=== PATIENT | male | born 1940 | race Caucasian/White ===

== ENCOUNTER 2023-11-16 14:44 | Outpatient (OUT) | payer MEDICARE, BC, SELFPAY ==
--- NOTE | 2023-11-16 16:21 | P.CN_ITS ---
Consult Note: HPI Data of Consult Patient: new to practice Consult date: 11/16/23 Requesting Physician: Mabel De La Garza MD Primary Care Provider: Roberta Patino NP Consult Narrative Reason for consult: low back, bilateral lower extremity pain Narrative: 83yom who presents for evaluation. longstanding low back pain, lower extremity paresthesias and weakness. has had a variety of interventional modalities at outside pain clinic, without lasting benefit. no recent imaging available for review. came across literature regarding vertiflex, is interested in this. continues in a series of provider directed home exercises >6 weeks, without significant benefit. uses otc meds as needed. denies adverse med side effects. cc:: CC: Mabel De La Garza MD Review of Systems ROS Status of ROS 10 or more systems reviewed and unremark able except as noted in history and below Exam Narrative Exam Narrative: Psych-alert and oriented x 3. Attentive and appropriate, constitutionally normal, displays normal mood and affect per situation. There are no obvious deficits in memory, reasoning, or intellect.? Skin-no obvious rashes, bruising, erythema noted to the patient's area of pain.? Extremities- extremities are warm with minimal edema and palpable pulses. Lumbar-tenderness to palpation noted in the lumbar spine and paraspinal musculature. Pain is elicited with flexion, extension, and lateral rotation of the lumbar spine. Range of motion is diminished with these motions. Facet loading maneuvers are positive.? Strength-noted to be unremarkable with the exception of decreased strength rated at 4 out of 5 in bilateral quadriceps femoris, anterior tibialis. Sensory-no notable sensory deficits in the bilateral lower extremities to touch or pinprick in all dermatomal distributions with the exception to decreased sensation to the bilateral L4, 5 dermatomal distribution Coordination remains intact.? Gait remains non-antalgic. Assessment and Plan Assessment and Plan (1) Lumbar stenosis with neurogenic claudication: (2) Lumbar postlaminectomy syndrome: Plan 83yom who presents for evaluation. failed conservative measures, as noted. imaging is not recent. could potentially be candidate for vertiflex, given symptoms and failure to respond to conservative measures. will have him undergo lumbar mri without contrast, as well as xr lumbar spine with flexion and extension and DEXA scan. he is in agreement. may be better candidate for spinal cord stimulator, but will discuss at following visit. meds reviewed, no changes. follow up after imaging.
== END 2023-11-16 14:45 | disposition home or self-care (01) ==
LOC: PM 14:45
PROVIDERS: PCP Nurse Practitioner; Visit Provider Anesthesiology
DX: M48.062 Spinal stenosis, lumbar region with neurogenic claudication (principal); M96.1 Postlaminectomy syndrome, not elsewhere classified
CPT/HCPCS: G0463

== ENCOUNTER 2023-12-01 12:37 | Outpatient (OUT) | payer MEDICARE, BC, SELFPAY ==
--- NOTE | 2023-12-01 | XR_ITS ---
The [address] [address] Patient Name: MARCIANO MCMILLAN MRN: [id number] date: 1940 Sex: M Assigned Patient Location: MRI Current Patient Location: MRI Accession/Order Number: [id number] Exam Date: 12/01/2023 13:48 Report Date: 12/01/2023 16:31 At the request of: THIAGO PATTERSON Procedure: XR DEXA axial skeleton EXAMINATION: XR DEXA axial skeleton HISTORY: LUMBAR SPINAL STENOSIS COMPARISON: No relevant comparison available. TECHNIQUE: Dual-energy X-ray absorptiometry (DXA) was performed. FINDINGS: SPINE ANALYSIS: Average bone mineral density is 1.694 g/cm2. T-score (standard deviation relative to young adult mean): 4.0 . HIP ANALYSIS: Lowest bone mineral density is within the right femoral neck, 0.880 g/cm2. T-score (standard deviation relative to young adult mean): -1.5 . XR/XR DEXA axial skeleton IMPRESSION: World Health Organization Classification: Osteopenia - Moderate Fracture Risk FRAX: Cannot calculate Pharmacologic treatment recommendations * No uniform recommendation applies to all patients. Management plans must be individualized. * Consider initiating pharmacologic treatment in postmenopausal women and men >= 50 years of age who have the following: Primary fracture prevention: * T-score <= - 2.5 at the femoral neck, total hip, lumbar spine, 33% radius (some uncertainty with existing data) by DXA. * Low bone mass (osteopenia: T-score between - 1.0 and - 2.5) at the femoral neck or total hip by DXA with a 10-year hip fracture risk >= 3% or a 10-year major osteoporosis-related fracture risk >= 20% (i.e., clinical vertebral, hip, forearm, or proximal humerus) based on the [place]-adapted FRAXregistered model. Secondary fracture prevention: * Fracture of the hip or vertebra regardless of BMD [4, 5]. * Fracture of proximal humerus, pelvis, or distal forearm in persons with low bone mass (osteopenia: T-score between - 1.0 and - 2.5). The decision to treat should be individualized in persons with a fracture of the proximal humerus, pelvis, or distal forearm who do not have osteopenia or low BMD [12, 13]. Dat MS, Pelon SL, Andree KL, Flaquito EM, Gavino KG, AJ, Katrin ES. The clinician's guide to prevention and treatment of osteoporosis. Osteoporos Int. 2021;33(10):5708-4688. doi: 10.1007/p74732-830-60858-n. Epub 2021Jul 04. Erratum in: Osteoporos Int. 2021Oct 03;: PMID: [id number]; PMCID: [id number]. Electronically authenticated by: FARIHA RICHARDS Date: 12/01/2023 16:31
--- NOTE | 2023-12-01 | MR_ITS ---
[address] [address] Patient Name: MARCIANO MCMILLAN MRN: [id number] date: 1940 Sex: M Assigned Patient Location: MRI Current Patient Location: MRI Accession/Order Number: [id number] Exam Date: 12/01/2023 13:12 Report Date: 12/02/2023 17:06 At the request of: THIAGO PATTERSON Procedure: MR lumbar spine wo con EXAM: MR lumbar spine wo con HISTORY: LUMBAR SPINAL STENOSIS COMPARISON: 12/01/2023 TECHNIQUE: MRI images obtained with multiple sequences. MRI of the lumbar spine without contrast. Sequences obtained by standard department protocol. FINDINGS: Levoscoliotic curvature of the lumbar spine centered at L3. T10-T11: Moderate disc degeneration. Intervertebral disc height loss. Broad-based posterior disc bulge. Mild to moderate spinal canal narrowing. Moderate neural foraminal narrowing bilaterally. Mild facet joint arthropathy. T11-T12: Mild disc degeneration. Broad-based posterior disc bulge. No spinal canal stenosis. Bilateral neural foramina are patent. T12-L1: Intervertebral disc height is preserved. No spinal canal stenosis. No neural foraminal stenosis. Mild facet joint arthropathy. L1-L2: Mild disc degeneration. Mild broad-based posterior disc bulge. No spinal canal stenosis. Left neural foramen is open. Right neural foramen is open. Mild facet joint arthropathy. L2-L3: Moderate disc degeneration. Broad-based posterior disc bulge. Left neural foramen is open. Right moderate neural foraminal narrowing. Mild facet joint arthropathy. Right lateral recess narrowing may irritate the traversing right L3 nerve root. Mild degenerative endplate edema. L3-L4: Moderate disc degeneration. Intervertebral disc height loss. Broad-based posterior disc bulge. Moderate spinal canal stenosis. Lateral recess narrowing in position to irritate the traversing bilateral L4 nerve roots. Mild to moderate facet joint arthropathy. Moderate right neural foraminal narrowing. Moderate left neural foraminal narrowing. Mild degenerative endplate edema. L4-L5: Intervertebral disc degeneration. Central posterior disc protrusion. Severe spinal canal stenosis. Severe left neural foraminal narrowing. Right moderate neural foraminal narrowing. L5-S1: Moderate disc degeneration. Central posterior disc protrusion. No spinal canal stenosis. Moderate to severe left neural foraminal narrowing. Right mild neural foraminal narrowing. Mild facet joint arthropathy. Mild degeneration of the sacroiliac joints. MR/MR lumbar spine wo con IMPRESSION: 1. Severe spinal canal stenosis at L4-L5. 2. Severe neural foraminal narrowing at left L4-L5. Moderate to severe left L5-S1 neural foraminal narrowing. 3. Moderate spinal canal stenosis at L3-L4. 4. Other findings as described. Electronically authenticated by: LENO CLARK Date: 12/02/2023 17:06
--- NOTE | 2023-12-01 | XR_ITS ---
The [place] [id number] Patient Name: MARCIANO MCMILLAN MRN: [id number] date: 1940 Sex: M Assigned Patient Location: MRI Current Patient Location: MRI Accession/Order Number: [id number] Exam Date: 12/01/2023 13:58 Report Date: 12/03/2023 06:04 At the request of: THIAGO PATTERSON Procedure: XR lumbar spine 6V w bending EXAMINATION: XR lumbar spine 6V w bending HISTORY: LUMBAR SPINAL STENOSIS COMPARISON: No relevant comparison available. FINDINGS: BONES: Marked left convex curvature of lumbar spine. Grade one-2 left lateral listhesis of L4 on 5. No fracture, anterior/posterior spondylolisthesis, or change in alignment during flexion and extension. Moderate-marked degenerative facet arthropathy L3-L4 through L5-S1. DISC SPACES: Marked narrowing L2-L3 through L5-S1 along the lesser curvature margin. PARASPINOUS: Moderate atherosclerotic disease of aorta without visible aneurysm. OTHER: Negative. XR/XR lumbar spine 6V w bending IMPRESSION: 1. Marked levoscoliosis. 2. Multilevel marked degenerative disc disease and facet arthropathy. Electronically authenticated by: FARIHA RICHARDS Date: 12/03/2023 06:04
--- OUTSIDE RECORDS SUMMARY | 2023-12-01 13:03 | XMS_ITS | CCD ---
Author Organization [facility] Care Team Providers Care Bartender Manager Name Role Phone Jared Petty Primary Care Provider Willian Nuñez Attending Provider [phone] Willian Nuñez Unavailable Lynn Garcia Unavailable Cristofer Grey Unavailable LINDA Patino Primary Care Provider MD Lynn Garcia Attending Provider MD Willian Nuñez Attending Provider [phone] LINDA Patino Primary Care Provider MD Willian Nuñez Attending Provider [phone] Roberta John Primary Care Provi chong LINDA Patino Primary Care Provider MD Willian Nuñez Attending Provider MD Angel Carbajal Attending Provider [phone] Angel Carbajal Admitting Unavailable Angel Carbajal Attending Unavailable Roberta Patino Primary Care Unavailable Angel Carbajal Admitting Unavailable Angel Carbajal Attending Unavailable Roberta Patino Primary Care Unavailable Willian Nuñez Admitting Unavailable Willian Nuñez Attending Unavailable Roberta Patino Primary Care Unavailable BAKFERN AZIZ Referring Unavailable ROBERTA PATINO Primary Care Unavailable LINDA Patino Primary Care Provider LINDA Patino Primary Care Provider MD Angel Carbajal Attending Provider [phone] ROBERTA PATINO Attending Unavailable ROBERTA PATINO Referring Unavailable ROBERTA PATINO A Primary Care Unavailable ROBERTA PATINO A Attending Unavailable ROBERTA PATINO A Referring Unavailable ROBERTA PATINO A Primary Care Unavailable MAGO ANGEL Attending Unavailable ROBERTA PATINO A Referring Unavailable ROBERTA PATINO A Primary Care Unavailable ROBERTA PATINO Attending Unavailable ROBERTA PATINO Referring Unavailable ROBERTA PATINO A Primary Care Unavailable Unavailable Unavailable Unavailable Allergies Allergy Classification Reported Allergen(s) Allergy Type Date of Onset Reaction(s) Facility (20 sources) Aspirin; Translations: [aspirin] Drug Allergy [address] [facility] (14 sources) NSAIDS (Non-Steroidal Anti-Inflamma Propensity to adverse reactions [address] [facility] (20 sources) Anti-Inflammato ry Enzyme Drug allergy 4 Unknown, Unknown Reaction [facility] (20 sources) Naproxen; Translations: [NAPROXEN] Drug Allergy 9 Other (See Comments) [facility] Other Medications Current Medications Medication Drug Class(es) Dates Sig (Normalized) Sig (Original) amLODIPine 5 mg oral tablet (20 sources) Dihydropyridine Calcium Channel Madeline Start: 08-19-2023 take 5 mg by mouth once daily Amlodipine Active 5 MG PO Daily August 19, 2023 12:00am Start: 05-29-2023 take 1 tablet by allyson th once daily amLODIPine (NORVASC) 5 mg tablet Indications: Essential hypertension, benign take 1 tablet by mouth once daily MAY TAKE ADDITIONAL TABLET IF BP GREATER THAN 150 90 tablet 1 05/29/2023 Active Start: 11-30-2022 End: 05-29-2023 take 1 tablet by mouth once daily amLODIPine (NORVASC) 5 mg tablet Indications: Essential hypertension, benign take 1 tablet by mouth once daily MAY TAKE ADDITIONAL TABLET IF BP GREATER THAN 150 90 tablet 1 11/30/2022 05/29/2023 Discontinued (Reorder) Start: 06-17-2021 End: 08-19-2023 take 5 mg by mouth once daily Amlodipine Discontinued 5 MG PO Daily June 17, 2021 12:48pm August 19, 2023 2:10pm Start: 04-03-2020 End: 06-17-2021 take 10 mg by mouth once daily Amlodipine Discontinued 10 MG PO Daily 30 30 April 03, 2020 1:00am June 17, 2021 12:49pm ascorbic acid 500 mg oral tablet (20 sources) Vitamin C Start: 08-19-2023 take 1 g by mouth once daily Ascorbic Acid (Vitamin C) (Vitamin C) 500 mg tablet Active 1 GM PO Daily August 19, 2023 2:11pm Start: 04-03-2020 End: 08-19-2023 take 1 g by mouth twice daily Ascorbic Acid (Vitamin C ) (Vitamin C) 500 mg tablet Discontinued 1 GM PO Twice daily June 17, 2021 12:48pm August 19, 2023 2:14pm Start: 03-21-2020 End: 03-21-2020 take 4 tablets by mouth twice daily Ascorbic Acid (Vitamin C) (Vitamin C) 500 mg Tablet Discontinued 2000 MG PO Twice daily 0 March 21, 2020 1:00am March 21, 2020 5:29pm Start: 03-12-2020 End: 04-03-2020 take 2 tablets by mouth twice daily Ascorbic Acid (Vitamin C) (Vitamin C) 1,000 mg Tablet Discontinued 2000 MG PO Twice daily March 12, 2020 1:00am April 03, 2020 9:58am take 1 tablet by allyson once daily Ascorbic Acid 500 MG 1 tablet Orally Once a day Active cyclobenzaprine hydrochloride 5 mg oral tablet (20 sources) Muscle Relaxant Start: 08-19-2023 take 5 mg by mouth once Cyclobenzaprine Active 5 MG PO Once August 19, 2023 2:11pm Start: 07-03-2021 End: 08-19-2023 take 5 mg by mouth three times daily Cyclobenzaprine Discontinued 5 MG PO Three times daily 40 July 03, 2021 12:00am August 19, 2023 2:14pm Start: 03-21-2020 End: 04-03-2020 take 10 mg by mouth every eight hours Cyclobenzaprine Discontinued 10 MG PO Every 8 hours 0 March 21, 2020 1:00am April 03, 2020 9:58am diclofenac sodium 0.01 mg/mg topical gel (20 sources) Nonsteroidal Anti-inflammatory Drug Start: 06-17-2021 Diclofenac Sodium Active 1 EACH TOPICAL As Directed June 17, 2021 12:00am Start: 05-29-2018 End: 04-03-2020 Diclofenac Sodium (Voltaren Arthritis Pain) 1 % gel Discontinued 2 GM TOPICAL Three times daily March 21, 2020 1:00am April 03, 2020 9:58am fluticasone propionate 0.05 mg/actuat metered dose nasal spray (14 sources) Corticosteroid Start: 08-19-2023 Fluticasone Pr opionate Active INTRANASAL August 19, 2023 12:00am Start: 04-06-2023 take 1 spray(s) nasa l route once daily in the morning fluticasone propionate (FLONASE) 50 mcg/actuation nasal spray instill 1 spray into each nostril every morning 16 g 3 04/06/2023 Active Start: 03-31-2022 End: 04-06-2023 take 1 spray(s) nasal route in the morning fluticasone propionate (FLONASE) 50 mcg/actuation nasal spray Administer 1 spray into each nostril in the morning. 18.2 mL 4 03/31/2022 04/06/2023 Discontinued take 1 spray(s) nasa l route once daily Fluticasone Propionate 50 MCG/ACT 1 spray in each nostril Nasally Once a day Active hydroCHLOROthiazide 25 mg / triamterene 37.5 mg oral capsule (20 sources) Potassium-sparing Diuretic, Thiazide Diuretic Start: 09-27-2022 take 1 capsule by mouth every other day for edema triamterene-hydroCHLOROthiazide (DYAZIDE) 37.5-25 mg per capsule Indications: Essential hypertension, benign take 1 capsule by mouth every other day if needed for edema 90 capsule 1 09/27/2022 Active Start: 06-17-2021 take 1 tablet by allyson th every other day Triamterene-Hydrochlorothiazid Active 1 TAB PO every other day June 17, 2021 12:00am Start: 03-12-2020 End: 04-03-2020 take 1 tablet by mouth once daily in the morning Triamterene-Hydrochlorothiazid Discontin ued 1 TAB PO Every morning March 21, 2020 5:29pm April 03, 2020 9:58am losartan potassium 50 mg oral tablet (20 sources) Angiotensin 2 Receptor Madeline Start: 08-19-2023 take 75 mg by mouth once daily Losartan Active 75 MG PO Daily August 19, 2023 12:00am Start: 01-25-2023 losartan (COZA AR) 50 mg tablet take 1 AND 1/2 tablets by mouth once daily 135 tablet 1 01/25/2023 Active Start: 07-03-2021 End: 08-19-2023 take 100 mg by mouth once daily Losartan Discontinued 100 MG PO Daily July 03, 2021 12:00am August 19, 2023 2:12pm Start: 06-17-2021 End: 07-03-2021 take 75 mg by mouth once daily Losartan Discontinued 7 5 MG PO Daily June 17, 2021 12:48pm July 03, 2021 1:28pm Start: 03-12-2020 End: 06-17-2021 take 50 mg by mouth once daily Losartan Discontinued 5 0 MG PO Daily April 03, 2020 1:00am June 17, 2021 12:49pm nystatin [id number] unt/ml topical cream (20 sources) Polyene Antifungal Start: 10-31-2022 End: 03-12-2023 nystatin (MYCOSTATIN) cream Indications: Dermatitis apply 1 APPLICATION topically to affected area if needed for DERMATITIS 30 g 2 03/12/2023 Active Start: 06-17-2021 Nystatin Activ e 1 APPLIC TOPICAL As Directed June 17, 2021 12:00am Nystatin [id number] UNIT/GM 1 application Externally Twice a day Active Nystatin [id number] UNIT/GM 1 application Externally Twice a day Active oxyCODONE hydrochloride 5 mg oral tablet (20 sources) Opioid Agonist Start: 08-07-2021 take 1-2 tablets by mouth three times daily as needed oxyCODONE HCl 5 MG 1-2 tablet as needed Orally three times a day for 7 days Aug, Active Start: 07-03-2021 End: 06-25-2023 take 5-10 mg by mouth every six hours Oxycodone Discontinued 5 - 10 MG PO Q6H 40 8 July 03, 2021 June 25, 2023 10:18am Start: 04-03-2020 End: 06-17-2021 take 2.5 mg by mouth three times daily Oxycodone Discontinued 2.5 MG PO Three times daily 25 09April 03, 2020 June 17, 2021 12:48pm Start: 03-21-2020 End: 03-21-2020 take 5 mg by mouth every six hours Oxycodone Discontinued 5 MG PO Every 6 hours 0 March 21, 2020 March 21, 2020 5:30pm Start: 03-21-2020 End: 03-21-2020 take 10 mg by mouth every six hours Oxycodone Discontinued 10 MG PO Every 6 hours 0 March 21, 2020 March 21, 2020 5:30pm permethrin 50 mg/ml topical cream (3 sources) Pyrethroid Permethrin 5 % 1 application Externally Two times a Week Active polyethylene glycol 400 4 mg/ml / propylene glycol 3 mg/ml ophthalmic solution (20 sources) Start: 03-12-2020 Peg 400-Propylene Glycol (Systane (Propylene Glycol)) 0.4-0.3 % Drops Active 2 DROPS EYE-BOTH As Directed March 12, 2020 1:00am takes morning/evening and more often if needed. peg 400-propylen e glycol (SYSTANE ULTRA) 0.4-0.3 % drops Instill 1 drop into each eye as needed 0 Active take 1 drop(s) into the eye(s) once daily as needed Systane Ultra 0.4-0.3 % as directed Ophthalmic 1 DROP INTO EACH EYE ONCE A DAY NEEDED Active Propylene glycol (7 sources) take 2 drop(s) into the eye(s) twice daily Propylene Glycol - as directed Ophthalmic 2 DROPS TWO TIMES A DAY IN BOTH EYES Active tamsulosin hydrochloride 0.4 mg oral capsule (20 sources) alpha-Adrenergic Madeline Start: take 2 capsules by mouth once daily tamsulosin (FLOMAX) 0.4 mg capsule Indications: Enlarged prostate with urinary obstruction take 2 capsules by mouth nightly 180 capsule 1 01/04/2023 Active Start: 07-01-2021 take 0.8 mg by mouth once daily at bedtime Tamsulosin Active 0.8 MG PO Daily at bedtime July 01, 2021 12:00am Start: 03-12-2020 End: 06-17-2021 take 0.8 mg by mouth once daily at bedtime Tamsulosin Discontinued 0.8 MG PO Daily at bedtime 60 30 April 03, 2020 1:00am June 17, 2021 12:48pm take 1 capsule by mo uth every twenty-four hours Tamsulosin HCl 0.4 MG 1 capsule Orally Once a day Not-Taking tiZANidine 2 mg oral tablet (8 sources) Central alpha-2 Adrenergic Agonist take 1 tablet by mouth every eight hours tiZANidine HCl 2 MG 1 tablet as needed Orally Three times a day Active triamcinolone acetonide 0.001 mg/mg topical ointment (14 sources) Corticosteroid Start: 08-19-19 Triamcinolone Acetonide Active APPLIC TOPICAL August 19, 2023 12:00am Start: 01-25-2023 triamcinolone (KENALOG) 0.1 % ointment Indications: Dermatitis APPLY 1 APPLICATION TOPICALLY TO AFFECTED AREA EVERY MORNING THEN APPLY 1 APPLICATION BEFORE BEDTIME 80 g 1 01/25/2023 Active Triamcinolone Ac etonide 0.1 % 1 application Externally Twice a day Active vitamin b12 1 mg oral tablet (20 sources) Vitamin B12 Start: 04-03-2020 End: 06-17-2021 take 1000 ug by mouth once daily in the morning Cyanocobalamin (Vitamin B-12) Active 1000 MCG PO Every morning June 17, 2021 12:48pm take 1 tablet by allyson once daily as needed Cyanocobalamin 1000 MCG 1 tablet Orally ONCE A DAY PRN Active take 1 tablet by mouth once jorge y Cyanocobalamin 1000 MCG 1 tablet Orally Once a day Active Completed/Discontinued Medications Medication Drug Class(es) Dates Sig (Normalized) Sig (Original) acetaminophen 325 mg oral tablet (20 sources) Start: 04-03-2020 End: 06-17-2021 take 162.5 mg by mouth three times daily Acetaminophen Discontinued 162.5 MG PO Three times daily 0 April 03, 2020 1:00am June 17, 2021 12:46pm Start: 03-21-2020 End: 04-03-2020 take 650 mg by mouth every four hours Acetaminophen Discontinued 650 MG PO Q4H 0 March 21, 2020 1:00am April 03, 2020 9:58am acetaminophen 325 mg / oxyCODONE hydrochloride 7.5 mg oral tablet (20 sources) Opioid Agonist Start: 03-12-2020 End: 03-21-2020 Oxycodone-Acetaminophen (Percocet) 7.5-325 mg Tablet Discontinued 0.5 - 1 TAB PO As Directed March 12, 2020 1:00am March 21, 2020 2:16pm take 1 tablet by allyson th every six hours oxyCODONE-Acetaminophen 7.5-325 MG 1 tab let as needed Orally every 6 hrs Active aluminum hydroxide 40 mg/ml / magnesium hydroxide 40 mg/ml / simethicone 4 mg/ml oral suspension (12 sources) Start: 03-21-2020 End: 04-03-2020 take 1 mL by mouth every four hours Alum-Mag Hydroxide-Simeth (Mag-Al Plus) 200-200-20 mg/5 mL Suspension Discontinued 30 ML PO Q4H 0 March 21, 2020 1:00am April 03, 2020 9:58am calcium carbonate 1250 mg oral tablet (20 sources) Start: 03-21-2020 End: 04-03-2020 Calcium Carbonate (Oyster Shell Calcium 500) 500 mg calcium (1,250 mg) tablet Discontinued 500 MG PO Every morning March 21, 2020 5:29pm April 03, 2020 9:58am Start: 03-12-2020 End: 03-21-2020 take 1 tablet by mouth once daily Calcium Carbonate (Calcium 600) 600 mg calcium (1,500 mg) Tablet Discontinued 600 MG PO Daily March 12, 2020 1:00am March 21, 2020 5:29pm cephalexin 500 mg oral capsule (12 sources) Cephalosporin Antibacterial Start: 07-03-2021 End: 06-25-2023 take 500 mg by mouth three times daily Cephalexin Discontinued 500 MG PO Three times daily July 03, 2021 12:00am June 25, 2023 10:18am cholecalciferol 0.025 mg oral tablet (20 sources) Vitamin D Start: 04-03-2020 End: 06-17-2021 take 25 ug by mouth once daily in the morning Cholecalciferol (Vitamin D3) Discontinued 25 MCG PO Every morning 30 April 03, 2020 1:00am June 17, 2021 12:47pm Start: 03-21-2020 End: 04-03-2020 take 50 ug by mouth once daily in the morning Cholecalciferol (Vitamin D3) Discontinued 50 MCG PO Every morning March 21, 2020 5:29pm April 03, 2020 9:58am Start: 03-12-2020 End: 03-21-2020 take 1 capsule by mouth once daily Cholecalciferol (Vitamin D3) (Vitamin D3) 50 mcg (2,000 unit) Capsule Discontinued 50 MCG PO Daily March 12, 2020 1:00am March 21, 2020 5:29pm docusate sodium 100 mg oral capsule (12 sources) Start: 04-03-2020 End: 07-21-2023 take 1 capsule by mouth twice daily Docusate Sodium (Dok) 100 mg Capsule Discontinued 100 MG PO Twice daily 60 April 03, 2020 1:00am July 21, 2023 9:32am docusate sodium 50 mg / sennosides, fpc 8.6 mg oral tablet (12 sources) Start: 03-21-2020 End: 04-03-2020 take 2 tablets by mouth twice daily Sennosides-Docusate Sodium Discontinued 2 TAB PO Twice daily 0 March 21, 2020 1:00am April 03, 2020 9:58am famotidine 20 mg oral tablet (20 sources) Histamine-2 Receptor Antagonist Start: 03-12-2020 End: 04-06-2023 take 20 mg by mouth twice daily Famotidine Discontinued 20 MG PO Twice daily 60 April 03, 2020 1:00am June 17, 2021 12:49pm Start: 03-12-2020 End: 03-21-2020 take 20 mg by mouth once daily at bedtime Famotidine Discontinued 20 MG PO Daily at bedtime March 12, 2020 1:00am March 21, 2020 2:16pm finasteride 5 mg oral tablet (20 sources) 5-alpha Reductase Inhibitor Start: 03-21-2020 End: 04-03-2020 take 5 mg by mouth once daily in the morning Finasteride Discontinued 5 MG PO Every morning March 21, 2020 5:29pm April 03, 2020 9:58am Magnesium Hydroxide (12 sources) Start: 03-21-2020 End: 04-03-2020 take 1 mL by mouth at bedtime Magnesium Hydroxide (Milk Of Magnesia) 400 mg/5 mL Suspension Discontinued 30 ML PO Bedtime 0 March 21, 2020 12:00am April 03, 2020 8:58am Start: 03-21-2020 End: 04-03-2020 take 1 mL by mouth at bedtime Magnesium Hydroxide (Mil k Of Magnesia) 400 mg/5 mL Suspension Discontinued 30 ML PO Bedtime 0 March 21, 2020 1:00am April 03, 2020 9:58am Prednisone (20 sources) Start: 07-03-2021 End: 06-25-2023 Prednisone Discontinued 1 do se pk PO per package directions July 03, 2021 12:00am June 25, 2023 10:18am take 4 tabs for 3 days then take 3 tabs for 3 days then take 2 tabs for 3 days then take 1 tab for 3 days Start: 07-03-2021 Prednisone Act nuno 1 dose pk PO per package directions July 02, 2021 11:00pm take 4 tabs for 3 days then take 3 tabs for 3 days then take 2 tabs for 3 days then take 1 tab for 3 days Start: 07-03-2021 Prednisone Act nuno 1 dose pk PO per package directions July 03, 2021 12:00am take 4 tabs for 3 days then take 3 tabs for 3 days then take 2 tabs for 3 days then take 1 tab for 3 days Start: 04-25-2021 predniSONE 10 MG 3 tablets a day for 3 days, 2 tablets a day for 3 days, 1 tablets a day for 3 days Orally Once a day for 9 day(s) Apr, Active Start: 04-03-2020 End: 06-17-2021 take 20 mg by mouth once daily Prednisone Discontinued 20 MG PO Daily 07 10April 03, 2020 1:00am June 17, 2021 12:48pm temazepam 15 mg oral capsule (12 sources) Benzodiazepine Start: 04-03-2020 End: 06-17-2021 take 15 mg by mouth once daily at bedtime Temazepam Discontinued 15 MG PO Daily at bedtime April 03, 2020 1:00am June 17, 2021 12:48pm Vitamin D-3 25 MCG (1000 UT) (2 sources) take 1 capsule by mouth once daily Vitamin D-3 25 MCG (1000 UT) 1 capsule Orally Once a day Not-Taking Problems Active Problems Problem Classification Problem Date Documented Da te Episodic/Chronic Acute and unspecified renal failure (12 sources) Injury of kidney; Translations: [Acute kidney failure, unspecified] 03-25-2020 Episodic Administrative/social admission (12 sources) Other reduced mobility; Translations: [Impaired mobility and activities of daily living] 03-22-2020 Episodic Chronic kidney disease (20 sources) Chronic kidney disease stage 3A ; Translations: [Chronic kidney disease, stage 3a] Onset: 10-22-2016 03-25-2020 Chronic Chronic kidney disease (16 sources) Chronic kidney disease; Translations: [Chronic kidney disease, stage 3a] Onset: 10-22-2016 Resolved: 08-21-2021 Essential hypertension (20 sources) Hypertensive disorder; Translations: [Essential (primary) hypertension] Onset: 10-22-2016 07-01-2021 Chronic Fluid and electrolyte disorders (12 sources) Hyponatremia; Translations: [Hypo-osmolality and hyponatremia] 03-26-2020 Episodic Hyperplasia of prostate (19 sources) Benign prostatic hyperplasia; Translations: [Benign prostatic hyperplasia without lower urinary tract symptoms] Onset: 10-22-2016 Chronic Hypertension with complications and secondary hypertension (20 sources) Malignant hypertensive chronic kidney disease; Translations: [Hypertensive chronic kidney disease with stage 1 through stage 4 chronic kidney disease, or unspecified chronic kidney disease] Onset: 08-21-2021 Resolved: 08-21-2021 Chronic Immunizations and screening for infectious disease (1 source) Encounter for immunization; Translations: [Encounter for immunization] Onset: 10-07-2023 Episodic Nutritional deficiencies (20 sources) Decreased vitamin B12 level; Translations: [Deficiency of other specified B group vitamins] Onset: 08-17-2023 03-22-2020 Episodic Osteoarthritis (20 sources) 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; Translations: [Primary osteoarthritis, right shoulder] Chronic Other acquired deformities (16 sources) Lumbar spondylolisthesis; Translations: [Spondylolisthesis, lumbar region] Episodic Other acquired deformities (10 sources) Spondylolisthesis; Translations: [Spondylolisthesis, cervical region] 06-25-2023 Episodic Other acquired deformities (7 sources) Spondylolisthesis, cervical region; Translations: [Acquired spondylolisthesis] 06-25-2023 Episodic Other connective tissue disease (8 sources) Arthrodesis status; Translations: [Arthrodesis status] Onset: 07-30-2021 Resolved: 07-30-2021 Episodic Other connective tissue disease (10 sources) History of cervical spine fusion; Translations: [Arthrodesis status] 06-25-2023 Episodic Other endocrine disorders (8 sources) Osteitis fibrosa cystica; Translations: [Primary hyperparathyroidism] 08-18-2023 Chronic Other endocrine disorders (8 sources) Primary hyperparathyroidism; Translations: [Primary hyperparathyroidism] Onset: 08-17-2023 Chronic Other gastrointestinal disorders (12 sources) Constipation; Translations: [Constipation, unspecified] 03-25-2020 Episodic Other inflammatory condition of skin (5 sources) Rosacea; Translations: [Rosacea, unspecified] Onset: 10-22-2016 10-22-2016 Chronic Other nervous system disorders (20 sources) Cervical myelopathy; Translations: [Disease of spinal cord, unspecified] 03-22-2020 Chronic Other nervous system disorders (20 sources) Chronic pain; Translations: [Other chronic pain] 07-16-2023 Chronic Other nervous system disorders (3 sources) Disease of spinal cord, unspecified; Translations: [Cervical myelopathy G95.9] Onset: 12-13-2020 Resolved: 04-25-2021 Chronic Other nervous system disorders (20 sources) Ulnar neuropathy; Translations: [Lesion of ulnar nerve, right upper limb] Chronic Other nervous system disorders (1 source) Lesion of ulnar nerve, left upper limb Onset: 03-14-2021 Resolved: 03-14-2021 Chronic Other nervous system disorders (1 source) Lesion of ulnar nerve, right upper limb Onset: 03-14-2021 Resolved: 03-14-2021 Chronic Other nervous system disorders (16 sources) Other chronic pain; Translations: [Other chronic pain] 07-16-2023 Chronic Other nervous system disorders (12 sources) Postoperative pain ; Translations: [Other acute postprocedural pain] 03-22-2020 Episodic Other nervous system disorders (12 sources) Abnormal gait; Translations: [Unspecified abnormalities of gait and mobility] 03-22-2020 Episodic Other non-traumatic joint disorders (12 sources) Disorder of joint of shoulder region; Translations: [Joint disorder, unspecified] 03-22-2020 Episodic Other nutritional; endocrine; and metabolic disorders (20 sources) Hypercalcemia; Translations: [Hypercalcemia] 08-18-2023 Chronic Other nutritional; endocrine; and metabolic disorders (10 sources) Hypercalcemia; Translations: [Hypercalcemia] Onset: 08-21-2021 Resolved: 08-21-2021 Chronic Other screening for suspected conditions (not mental disorders or infectious disease) (12 sources) Protein level - finding; Translations: [Other specified abnormal findings of blood chemistry] 03-22-2020 Episodic Pneumonia (except that caused by tuberculosis or sexually transmitted disease) (12 sources) Pneumonia; Translations: [Pneumonia, unspecified organism] 03-25-2020 Episodic Residual codes; unclassified (12 sources) Insomnia; Translations: [Insomnia, unspecified] 04-03-2020 Episodic Residual codes; unclassified (12 sources) Patient encounter status; Translations: [Encounter for prophylactic measures, unspecified] 03-22-2020 Episodic Residual codes; unclassified (12 sources) History of surgical procedure on cervical spine; Translations: [Other specified postprocedural states] 03-22-2020 Episodic Spondylosis; intervertebral disc disorders; other back problems (20 sources) Cervical spondylosis with myelopathy; Translations: [Other spondylosis with myelopathy, cervical region] Onset: 02-09-2019 Resolved: 10-29-2021 Chronic Unclassified (1 source) Annual Exam Onset: 10-07-2023 Past or Other Problems Problem Classification Problem Date Documented Da te Episodic/Chronic Allergic reactions (7 sources) Inflammatory dermatosis; Translations: [Dermatitis, unspecified] Onset: 10-25-2020 03-12-2023 Episodic Mood disorders (5 sources) Mood disorders Onset: 09-26-2022 09-26-2022 Other gastrointestinal disorders (5 sources) Slow transit constipation; Translations: [Slow transit constipation] Onset: 08-12-2021 08-12-2021 Episodic Other nervous system disorders (5 sources) Paresthesia of upper limb; Translations: [Anesthesia of skin] Onset: 05-06-2021 05-06-2021 Episodic Residual codes; unclassified (5 sources) H/O Spinal surgery; Translations: [Other specified postprocedural states] Onset: 08-12-2021 2 Episodic Spondylosis; intervertebral disc disorders; other back problems (20 sources) Chronic low back pain; Translations: [Lumbago with sciatica, right side] Onset: 05-31-2018 Resolved: 10-29-2021 Episodic Results Test Name Value Interpretation Reference Range Facility COMPLETE BLOOD COUNTon 08-16 Erythrocyte distribution width (RBC) [Ratio] 14.0 % Normal 11.5-15.0 [facility] Comment on above: Performed By: #### C BC, UPCR, CMP, 40633-3, 2777-1, 3084-1, 2731-8, 2132-9, 71774-3 #### [facility] ([id number]) [address] [place] [address] Hematocrit (Bld) [Volume fraction] 39.1 % Normal 39-49 [facility] [facility] Comment on above: Performed By: #### C BC, UPCR, CMP, 07737-8, 2777-1, 3084-1, 2731-8, 2132-9, 43629-0 #### [facility] ([id number]) [address] [address] [place] [address] Hemoglobin (Bld) [Mass/Vol] 13.6 g/dL Normal 13.0-17.0 [facility] Comment on above: Performed By: #### C BC, UPCR, CMP, 32975-6, 2777-1, 3084-1, 2731-8, 2132-9, 97677-2 #### [facility] ([id number]) [address], [address] [place] [address] MCH (RBC) [Entitic mass] 32.9 pg Normal 27-34 [facility] Comment on above: Performed By: #### C BC, UPCR, CMP, 38068-4, 2777-1, 3084-1, 2731-8, 2132-9, 35826-0 #### [facility] ([id number]) [address], [address] [place] [address] MCHC (RBC) [Mass/Vol] 34.9 g/dL Normal 32-36 [facility] Comment on above: Performed By: #### C BC, UPCR, CMP, 80413-9, 2777-1, 3084-1, 2731-8, 2132-9, 74054-6 #### [facility] ([id number]) [address], [address] [place] [address] MCV (RBC) [Entitic vol] 94 fL Normal 80-100 P [facility] Comment on above: Performed By: #### C BC, UPCR, CMP, 93066-7, 2777-1, 3084-1, 2731-8, 2131-9, 98623-5 #### [facility] ([id number]) [address], [address] [place] [address] Platelet mean volume (Bld) [Entitic vol] 8.3 fL Normal 7-12 [facility] Comment on above: Performed By: #### C BC, UPCR, CMP, 36005-8, 2777-1, 3084-1, 2731-8, 2131-9, 32551-1 #### [facility] ([id number]) [address], [facility] [address] [place] [address] Platelets (Bld) [#/Vol] 189 10*3/uL Normal 150-450 [facility] Comment on above: Performed By: #### C BC, UPCR, CMP, 77266-5, 2777-1, 3084-1, 2731-8, 2132-9, 46305-7 #### [facility] ([id number]) [address], [address] [place] [address] RBC COUNT 4.15 X10E12/L Normal 4.10-5.70 [facility] Comment on above: Performed By: #### C BC, UPCR, CMP, 60904-6, 2777-1, 3084-1, 2731-8, 2132-9, 23365-3 #### [facility] ([id number]) [address], [address] [place] [address] WBC (Bld) [#/Vol] 5.1 10*3/uL Normal 4.0-11.0 [facility] Comment on above: Performed By: #### C BC, UPCR, CMP, 18194-2, 2777-1, 3084-1, 2731-8, 2132-9, 36437-3 #### [facility] ([id number]) [address], [address] [place] [address] COMPREHENSIVE METABOLIC PANE Dima 08-17-2023 Albumin [Mass/Vol] 4.2 g/dL Normal 3.2-5.3 [facility] Comment on above: Performed By: #### C BC, UPCR, CMP, 33003-9, 2777-1, 3084-1, 2731-8, 2132-9, 24393-0 #### [facility] ([id number]) [address], [address] [place] [address] ALP [Catalytic activity/Vol] 61 U/L Normal 39-130 [facility] Comment on above: Performed By: #### C BC, UPCR, CMP, 86087-5, 2777-1, 3084-1, 2731-8, 2132-9, 42979-8 #### [facility] ([id number]) [address], [address] [place] [address] ALT [Catalytic activity/Vol] 21 U/L Normal 0-40 [facility] Comment on above: Performed By: #### C BC, UPCR, CMP, 02895-6, 2777-1, 3084-1, 2731-8, 2132-9, 47669-0 #### [facility] ([id number]) [address], [address] [place] [address] Anion gap [Moles/Vol] 8 mmol/L Normal 5-15 [facility] Comment on above: Performed By: #### C BC, UPCR, CMP, 12972-7, 2777-1, 3084-1, 2731-8, 2132-9, 24908-2 #### [facility] ([id number]) [address], [address] [place] [address] AST [Catalytic activity/Vol] 19 U/L Normal 0-41 [facility] Comment on above: Performed By: #### C BC, UPCR, CMP, 48186-9, 2777-1, 3084-1, 2731-8, 2131-9, 63656-0 #### [facility] ([id number]) [address], [address] [place] [address] Bilirubin [Mass/Vol] 0.6 mg/dL Normal 0.3-1.2 [facility] Comment on above: Performed By: #### C BC, UPCR, CMP, 31239-3, 2777-1, 3084-1, 2731-8, 2131-9, 66395-9 #### [facility] ([id number]) [address], [address] [place] [address] Calcium [Mass/Vol] 9.7 mg/dL Normal 8.5-10.5 [facility] Comment on above: Performed By: #### C BC, UPCR, CMP, 38818-9, 2777-1, 3084-1, 2731-8, 2131-9, 29110-8 #### [facility] ([id number]) [address], [address] [place] [address] Chloride [Moles/Vol] 104 mmol/L Normal 98-109 [facility] Comment on above: Performed By: #### C BC, UPCR, CMP, 06366-4, 2777-1, 3084-1, 2731-8, 2132-9, 08467-1 #### [facility] ([id number]) [address], [address] [place] [address] CO2 [Moles/Vol] 29 mmol/L Normal 22-32 [facility] Comment on above: Performed By: #### C BC, UPCR, CMP, 75347-1, 2777-1, 3084-1, 2731-8, 2-9, 86379-8 #### [facility] ([id number]) [address], [address] [place] [address] Creatinine [Mass/Vol] 1.29 mg/dL Normal 0.60-1.30 [facility] Comment on above: Result Comment: METH OD TRACEABLE TO IDMS STANDARD Performed By: #### C BC, UPCR, CMP, 34654-1, 2777-1, 3084-1, 2731-8, 2131-9, 54536-7 #### [facility] ([id number]) [address], [address] [place] [address] GFR/1.73 sq M.predicted among non-blacks MDRD (S/P/Bld) [Vol rate/Area] 55 mL/min/{1.73_m2} Low >59 [facility] Comment on above: Result Comment: Reported eGFR is based on the CKD-EPI 2020 equation that does not use a race coefficient. Performed By: #### C BC, UPCR, CMP, 89037-9, 7-1, 3084-1, 2731-8, 2131-9, 41468-8 #### [facility] ([id number]) [address], [address] [place] [address] Glucose [Mass/Vol] 94 mg/dL Normal 65-99 [facility] Comment on above: Performed By: #### C BC, UPCR, CMP, 95426-2, 2777-1, 3084-1, 2731-8, 2132-9, 02173-4 #### [facility] ([id number]) [address], [address] [place] [address] Potassium [Moles/Vol] 4.4 mmol/L Normal 3.5-5.0 [facility] Comment on above: Performed By: #### C BC, UPCR, CMP, 48921-4, 2777-1, 3084-1, 2731-8, 2132-9, 12076-4 #### [facility] ([id number]) [address], [address] [place] [address] Protein [Mass/Vol] 6.7 g/dL Normal 6.0-8.0 [facility] Comment on above: Performed By: #### C BC, UPCR, CMP, 55828-6, 7-1, 3084-1, 2731-8, 2131-9, 47547-4 #### [facility] ([id number]) [address], [address] [place] [address] Sodium [Moles/Vol] 141 mmol/L Normal 134-146 [facility] Comment on above: Performed By: #### C BC, UPCR, CMP, 52857-3, 2777-1, 3084-1, 2731-8, 2131-9, 32372-9 #### [facility] ([id number]) [address], [address] [place] [address] Urea nitrogen [Mass/Vol] 23 mg/dL Normal 5-27 [facility] Comment on above: Performed By: #### C BC, UPCR, CMP, 58369-3, 2777-1, 3084-1, 2731-8, 2-9, 36788-0 #### [facility] ([id number]) [address], [address] [place] [address] MAGNESIUMon 08-17-2023 Magnesium [Mass/Vol] 2.1 mg/dL Normal 1.8-2.6 [facility] Comment on above: Performed By: #### C BC, UPCR, CMP, 03346-5, 7-1, 3084-1, 2731-8, 2131-9, 25061-4 #### [facility] ([id number]) [address], [address] [place] [address] PHOSPHORUSon 08-17-2023 Phosphate [Mass/Vol] 2.3 mg/dL Low 2.4-4.9 [facility] Comment on above: Performed By: #### C BC, UPCR, CMP, 48264-7, 7-1, 3084-1, 2731-8, 2131-9, 17335-2 #### [facility] ([id number]) [address], [address] [place] [address] PROTEIN CREAT RATIOon 2023 RANDOM URINE PROTEIN 190 mg/L High <120 [facility] Comment on above: Performed By: #### C BC, UPCR, CMP, 44905-4, 7-1, 3084-1, 2730-8, 9, 91482-5 #### [facility] ([id number]) [address], [address] [place] [address] U/PRO/CHUTE TAPPER RATIO CALC 0.14 Normal <0.2 [facility] Comment on above: Result Comment: Neph rotic Syndrome is associated with ratios >3.5 Performed By: #### C BC, UPCR, CMP, 99238-1, 7-1, 3084-1, 2730-8, 2131-9, 01043-1 #### [facility] ([id number]) [address], [address] [place] [address] URINE CREATININE,RDM 131.58 mg/dL Normal Pr [facility] [place] [place] Comment on above: Performed By: #### C BC, UPCR, CMP, 38632-8, 7-1, 3084-1, 2731-8, 2131-9, 55744-5 #### [facility] ([id number]) [address], [address] [place] [address] Parathyrin.intact [Mass/Vol] on 08-17-2023 PTH INTACT 88 pg/mL Normal 12-88 [facility] Comment on above: Performed By: #### C BC, UPCR, CMP, 72485-6, 2777-1, 3084-1, 2731-8, 9, 87490-3 #### [facility] ([id number]) [address], [address] [place] [address] URIC ACIDon 08-17-2023 Urate [Mass/Vol] 5.2 mg/dL Normal 2.6-7.2 [facility] Comment on above: Performed By: #### C BC, UPCR, CMP, 13434-6, 7-1, 3084-1, 1-8, 2131-11, 47341-4 #### [facility] ([id number]) [address], [address] [place] [address] URINALYSISon 08-17-2023 Bilirubin Ql (U) Negative Normal NEG [facility] Comment on above: Performed By: #### U A #### [facility] ([id number]) [address], [address] [place] [address] BLOOD/HGB Negative Normal NEG [facility] Comment on above: Performed By: #### U A #### [facility] ([id number]) [address], [address] [place] [address] Color (U) YELLOW Normal YELLOW [facility] Comment on above: Performed By: #### U A #### [facility] ([id number]) [address], [address] [place] [address] Glucose Ql (U) Negative Normal NEG [facility] Comment on above: Performed By: #### U A #### [facility] ([id number]) [address], [address] [place] [address] Ketones Ql (U) Negative Normal NEG [facility] Comment on above: Performed By: #### U A #### [facility] ([id number]) [address] [place] [address], [address] [place] [address] Leukocyte esterase Test strip Ql (U) Negative Normal NEG [facility] Comment on above: Performed By: #### U A #### [facility] ([id number]) [address] [place] [address], [address] [place] [address] MUCOUS PRESENT Abnormal NONE [facility] Comment on above: Performed By: #### U A #### [facility] ([id number]) [address] [facility] [place] [address] Nitrite Ql (U) Negative Normal NEG [facility] Comment on above: Performed By: #### U A #### [facility] ([id number]) [address] [facility], [address] [place] [address] pH (U) 6.0 [pH] Normal 5.0-8.5 [facility] Comment on above: Performed By: #### U A #### [facility] ([id number]) [address] [place] [address], [address] [place] [address] Protein Ql (U) Trace Abnormal NEG [facility] Comment on above: Performed By: #### U A #### [facility] ([id number]) [address] [facility], [address] [place] [address] R.B.CELLS 1 /hpf Normal 0-5 [facility] Comment on above: Performed By: #### U A #### [facility] ([id number]) [address] [place] [address] [address] [place] [address] Specific gravity (U) [Rel density] 1.023 Normal 1.003-1.035 [facility] Comment on above: Performed By: #### U A #### [facility] ([id number]) [address] [facility], [address] [place] [address] SQUAMOUS EPITHELIUM <1 Normal 0-5 [facility] Comment on above: Performed By: #### U A #### [facility] ([id number]) [address], [address] [place] [address] TURBIDITY CLEAR Normal CLEAR [facility] Comment on above: Performed By: #### U A #### [facility] ([id number]) [address], [address] [place] [address] Urobilinogen (U) [Mass/Vol] mg/dL Normal <1.1 [facility] Comment on above: Performed By: #### U A #### [facility] ([id number]) [address], [address] [place] [address] W.B.CELLS 1 /hpf Normal 0-5 [facility] Comment on above: Performed By: #### U A #### [facility] ([id number]) [address], [address] [place] [address] VITAMIN B12on 08-17-2023 Cobalamin (Vitamin B12) [Mass/Vol] 539 pg/mL Normal 180-914 [facility] Comment on above: Performed By: #### C BC, UPCR, CMP, 43447-7, 2777-1, 3084-1, 2731-8, 2132-9, 23127-3 #### [facility] ([id number]) [address], [address] [place] [address] Vitamin D+Metabolites [Mass/ Vol]on 08-17-2023 VITAMIN D 25 HYD TOT 58.8 ng/mL Normal 30-100 [facility] Comment on above: Result Comment: Vitamin D status 25 [place] Vitamin D Deficiency <20 ng/mL Insufficiency 20-29 ng/mL Sufficiency 30-100 ng/mL Toxicity >100 ng/mL NOTE: A pediatric reference range has not been established by the x ray tech of this kit. The [employer] [employer] recommends a Vitamin D level of = or >20ng/mL in infants and children. Performed By: #### C BC, UPCR, CMP, 39680-5, 2777-1, 3084-1, 2731-8, 2132-9, 83856-7 #### [facility] ([id number]) [address] [facility] [place] [address] XR lumbar spine AP/LAT/FLX/E XTon 07-16-2023 XR lumbar spine AP/LAT/FLX/EXT [facility] [address] [place] [address] XRay Report Signed Patient: Marciano Mcmillan MR#: [id number] : 1940 Acct:[id number] Age/Sex: 83 / M ADM Date: 07/16/23 Loc: [facility] Room: Type: [facility] Attending Dr: Angel Carbajal MD Copies to: Angel Carbajal MD Ordering Provider: Angel Carbajal MD Date of Service: 07/16/23 XR/XR lumbar spine AP/LAT/FLX/EXT: 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 AP with lateral neutral, flexion extension views Lumbar Spine HISTORY: Low lumbar pain for years COMPARISON: None POSTSURGICAL CHANGES: None BONY ALIGNMENT: Marked lumbar scoliosis with concavity to the RIGHT. Straightening. HYPERMOBILITY:No hypermobility LISTHESIS:Similar multilevel mild to moderate degenerative listhesis. FRACTURE: None DEGENERATIVE CHANGES: Extensive multilevel spondylosis and facet degeneration. SOFT TISSUES: Atherosclerosis. BONY MINERALIZATION:Adeq uate XR/XR lumbar spine AP/LAT/FLX/EXT IMPRESSION: No hypermobility. Extensive scoliosis and multilevel degenerative changes. Impression dictated by: Rahul Beavers M.D.07/16/2023 11:58 AM Dictation Location: [place] [address] Transcribed By: [facility] 07/16/23 1158 Dictated By: Rahul Beavers DO 07/16/23 1157 Signed By: 07/16/23 1158 Normal The Counts Include 234 Beds At [facility] XR cerv spine AP/LAT/FLX/EXT on 06-25-2023 XR cerv spine AP/LAT/FLX/EXT [facility] Main Page [address] [place], [place] [address] XRay Report Signed Patient: Marciano Mcmillan MR#: [id number] : 1940 Acct:[id number] Age/Sex: 83 / M ADM Date: 06/25/23 Loc: XD Room: Type: [facility] Attending Dr: Willian Nuñez MD Copies to: Willian Nuñez MD Ordering Provider: Willian Nuñez MD Date of Service: 06/25/23 XR/XR cerv spine AP/LAT/FLX/EXT: M47.12 - Other spondylosis with myelopathy, cervical region XR cerv spine AP/LAT/FLX/EXT 06/25/2023 9:49 AM SIGNS AND SYMPTOMS: Spondylosis of cervical spine without myelopathy PROTOCOLS: Frontal, lateral, and flexion views of the cervical spine COMPARISON: 06/26/2022 FINDINGS: The bones are in anatomic alignment. There is posterior fusion hardware from C2 through T1. There is posterior decompression from C3 to C5. There is preservation of the vertebral body heights and intervertebral disc spaces. There is no fracture or destructive lesion. There is also posterior decompression at C7-T1. Atherosclerotic changes are noted in the thoracic aorta. XR/XR cerv spine AP/LAT/FLX/EXT IMPRESSION: No fracture or subluxation. Posterior fusion hardware and decompression is noted from C2 through T1 without hardware complication or malalignment. No pathologic movement. Impression dictated by: Osiel Calvert M.D.06/25/2023 1:59 PM Dictation Location: [place] [address] Transcribed By: [facility] 06/25/23 1359 Dictated By: Osiel Calvert II, MD 06/25/23 1357 Signed By: 06/25/23 1359 Normal The Counts Include 234 Beds At [facility] Blood hemoglobin measurement (mass/volume)Ordered By: Lynn Garcia on 08-14-2021 Hemoglobin (Bld) [Mass/Vol] 12.0 g/dL 13.0-17.0 [facility] Creatinine [Mass/volume] in UrineOrdered By: Lynn Garcia on 08-14-2021 Creatinine (U) [Mass/Vol] 27.8 mg/dL [facility] Comment on above: No reference range e stablished Creatinine and Glomerular fi ltration rate.predicted panel (S/P/Bld)Ordered By: Lynn Garcia on 08-14-2021 Creatinine [Mass/Vol] 1.35 mg/dL 0.64-1.27 [facility] Erythrocyte distribution wid th Auto (RBC) [Ratio]Ordered By: Lynn Garcia on 08-14-2021 Erythrocyte distribution width (RBC) [Ratio] 14.4 % 12.0-14.8 [facility] Estimated glomerular filtrat ion rate (GFR) non- AmericanOrdered By: Lynn Garcia on 08-14-2021 GFR/1.73 sq M.predicted among non-blacks MDRD (S/P/Bld) [Vol rate/Area] 51 mL/Min [facility] Hematocrit Auto (Bld) [Volum e fraction]Ordered By: Lynn Garcia on 08-14-2021 Hematocrit (Bld) [Volume fraction] 36.0 % 38.8-50.0 [facility] MCH Auto (RBC) [Entitic mass ]Ordered By: Lynn Garcia 08-14-2021 MCH (RBC) [Entitic mass] 30.0 pg 27.5-35.2 [facility] MCHC Auto (RBC) [Mass/Vol]Or dered By: Lynn Garcia on 08-14-2021 MCHC (RBC) [Mass/Vol] 33.5 g/dL 32.5-35.6 [facility] MCV Auto (RBC) [Entitic vol] Ordered By: Lynn Garcia on 08-14-2021 MCV (RBC) [Entitic vol] 89.8 fL 83.5-101 F [facility] No Panel InformationOrdered By: Lynn Garcia on 08-14-2021 Estimated GFR () > 60 mL/Min [facility] Comment on above: GFR estimated refere nce range: According to KDOQI guidelines, <60 ml/min/1.73m2 is sufficient to diagnose a patient with chronic kidney disease. Pharmacy Creatinine Clearance (Chem N/A [facility] Phosphate [Mass/volume] in S jill or PlasmaOrdered By: Lynn Garcia on 08-14-2021 Phosphate [Mass/Vol] 2.5 mg/dL 2.5-4.6 [facility] Platelet mean volume Auto (B ld) [Entitic vol]Ordered By: Lynn Garcia on 08-14-2021 Platelet mean volume (Bld) [Entitic vol] 7.8 fL 6.6-10.1 [facility] Platelets Auto (Bld) [#/Vol] Ordered By: Lynn Garcia on 08-14-2021 Platelets (Bld) [#/Vol] 206 10*3/uL 150-450 [facility] Protein [Mass/volume] in Uri neOrdered By: Lynn Garcia on 08-14-2021 Protein (U) [Mass/Vol] mg/dL 0-9 Fi [facility] RBC Auto (Bld) [#/Vol]Ordere d By: Lynn Garcia on 08-14-2021 RBC (Bld) [#/Vol] 4.01 10*6/uL 3.90-5.60 [facility] Serum or plasma calcium pedro urement (mass/volume)Ordered By: Lynn Garcia on 08-14-2021 Calcium [Mass/Vol] 9.9 mg/dL 8.2-10.2 [facility] Serum or plasma chloride ira surement (moles/volume)Ordered By: Lynn Garcia on 08-14-2021 Chloride [Moles/Vol] 102 mmol/L 95-114 [facility] Serum or plasma glucose pedro urement (mass/volume)Ordered By: Lynn Garcia on 08-14-2021 Glucose [Mass/Vol] 94 mg/dL 70-100 [facility] Comment on above: ADA recommended refe rence range Random Glucose Reference Range is dependent on time and content of last meal. Glucose of more than 200 mg/dL in a nonstressed, ambulatory subject supports the diagnosis of Diabetes Mellitus. Serum or plasma intact parat hyroid hormone measurement (mass/volume)Ordered By: Lynn Garcia on 08-14-2021 Parathyrin.intact [Mass/Vol] 67.0 pg/mL [facility] Serum or plasma potassium me asurement (moles/volume)Ordered By: Lynn Garcia on 08-14-2021 Potassium [Moles/Vol] 4.4 mmol/L 3.5-5.1 [facility] Serum or plasma sodium measu rement (moles/volume)Ordered By: Lynn Garcia on 08-14-2021 Sodium [Moles/Vol] 140 mmol/L 136-146 [facility] Serum or plasma total carbon dioxide measurement (moles/volume)Ordered By: Lynn Garcia on 08-14-2021 CO2 [Moles/Vol] 24.0 mmol/L 22.0-30.0 [facility] Serum or plasma urea nitroge n measurement (mass/volume)Ordered By: Lynn Garcia on 08-14-2021 Urea nitrogen [Mass/Vol] 18 mg/dL 11-29 [facility] Urine protein/creatinine rat ioOrdered By: Lynn Garcia on 08-14-2021 Protein/Creatinine (U) [Ratio] TNP [facility] Comment on above: Test not performed WBC Auto (Bld) [#/Vol]Ordere d By: Lynn Garcia on 08-14-2021 WBC (Bld) [#/Vol] 4.9 10*3/uL 4.1-10.5 [facility] CBC with Diffon 07-16-2020 AB IMMATURE NEUT 0.03 K/UL Normal 0.0-0.1 [facility] ABS BASO 0.02 K/UL Normal 0.00-0.22 [facility] ABS EOS 0.13 K/UL Normal 0-0.45 [facility] ABS NEUTROPHILS 3.50 K/UL Normal 1.8-7.7 Pending sale to [facility] ABS.NEUT.CALCULATED 3.50 K/UL Normal [facility] Comment on above: Result Comment: Perf ormed at [facility] [address] [facility] [address] Basophils/100 WBC (Bld) 0.40 % Normal 0-1 L [facility] DIFF TYPE AUTO DIFF Normal [facility] Eosinophils/100 WBC (Bld) 2.40 % Normal 0-3 [facility] Erythrocyte distribution width (RBC) [Ratio] 12.6 % Normal 11.7-15.0 [facility] Hematocrit (Bld) [Volume fraction] 36.2 % Low 41-50 [facility] Hemoglobin (Bld) [Mass/Vol] 12.2 g/dL Low 13.5-16.5 [facility] Lymphocytes (Bld) [#/Vol] 1.46 10*3/uL Normal 1.2-3.2 [facility] Lymphocytes/100 WBC (Bld) 26.40 % Normal 20-40 [facility] MCH (RBC) [Entitic mass] 31.0 pg Normal 26-34 [facility] MCHC 33.7 % Normal 31-37 [facility] MCV (RBC) [Entitic vol] 92.1 fL Normal 80-100 L [facility] MEAN PLT VOL 9.3 CU Normal 7.0-12.6 [facility] Monocytes (Bld) [#/Vol] 0.38 10*3/uL Normal 0-0.8 [facility] Monocytes/100 WBC (Bld) 6.90 % Normal 0-8 L [facility] Neutrophils/100 WBC (Bld) 0.50 % Normal 0.0-1.0 [facility] Neutrophils/100 WBC (Bld) 63.40 % Normal 50-70 [facility] Platelets (Bld) [#/Vol] 208 10*3/uL Normal 150-450 [facility] RBC (Bld) [#/Vol] 3.93 10*6/uL Low 4.5-5.5 [facility] RDW-SD 43.1 FL Normal 37.0-54.0 [facility] WBC (Bld) [#/Vol] 5.5 10*3/uL Normal 4.5-11.0 [facility] COMPREHENSIVE METABOLIC PANE Dima 07-16-2020 Anion gap [Moles/Vol] 8 mmol/L Normal 0-19 [facility] AST [Catalytic activity/Vol] 16 U/L Normal 5-40 [facility] Chloride [Moles/Vol] 104 mmol/L Normal 97-107 [facility] Albumin [Mass/Vol] 4.3 g/dL Normal 3.5-5.0 [facility] Albumin/Globulin [Mass ratio] 1.4 {ratio} Low 1.5-3.0 [facility] ALP [Catalytic activity/Vol] 70 U/L Normal 35-125 [facility] ALT [Catalytic activity/Vol] 9 U/L Normal 5-40 [facility] Bilirubin [Mass/Vol] 0.3 mg/dL Normal 0.1-1.2 [facility] Calcium [Mass/Vol] 10.6 mg/dL High 8.5-10.4 [facility] CO2 [Moles/Vol] 28 mmol/L Normal 24-31 [facility] Creatinine [Mass/Vol] 1.4 mg/dL Normal 0.4-1.6 [facility] ESTIMATED GFR 52 mL/min/1.73 m2 Normal [facility] Comment on above: Result Comment: GFR ml/min/1.73m2 Stage ----- 90 1 60-89 2 30-59 3 15-29 4 <15 5 For -Americans, multiply EGFR result by 1.210 Calculation not validated for patients under 18 years of age. Performed at [facility] [address] [facility] [address] Globulin (S) [Mass/Vol] 3.0 g/dL Normal 1.9-3.7 L [facility] Glucose [Mass/Vol] 110 mg/dL High 65-99 [facility] Potassium [Moles/Vol] 4.2 mmol/L Normal 3.4-5.1 [facility] Protein [Mass/Vol] 7.3 g/dL Normal 5.9-7.9 [facility] Sodium [Moles/Vol] 140 mmol/L Normal 133-145 [facility] Urea nitrogen [Mass/Vol] 30 mg/dL High 8-25 [facility] Urea nitrogen/Creatinine [Mass ratio] 21.4 mg/mg High 8-21 [facility] EKGon 07-16-2020 Electrocardiogram EKG Ventricular Rate : 82 BPM Atrial Rate : 82 BPM P-R Interval : 170 ms QRS Duration : 100 ms Q-T Interval : 360 ms QTC Calculation(Bazett) : 420 ms Calculated P [place] : -4 degrees Calculated R [place] : -10 degrees Calculated T [place] : 57 degrees Diagnosis:Sinus rhythm with occasional Premature ventricular complexes Otherwise normal ECG No previous ECGs available Confirmed by SOPHIA CANCINO ([id number]) on 07/18/2020 11:06:[address] [facility] SARS-CoV-2,INFLUENZA A/B NUC LEIC ACID TESTon 07-16-2020 EUA DISCLAIMER Normal [facility] Comment on above: Result Comment: This test has been authorized by FDA under an EUA for use by CLIA Certified Moderate and High-Complexity laboratories and Point of Care (POC), i.e., in patient care settings operating under a CLIA Certificate of Waiver, Certificate of Compliance, or Certificate of Accreditation. This test has been authorized only for the simultaneous qualitative detection and differentiation of nucleic acid from SARS-CoV-2, influenza A virus, and influenza B virus and not for any other viruses or pathogens. This test is only authorized for the duration of the declaration that circumstances exist justifying the authorization of emergency use of in vitro diagnostic tests for the detection and/or diagnosis of COVID-19, unless the authorization is terminated or revoked sooner. Performed at [place] [id number] FLU A by PCR Negative [facility] FLU B by PCR Negative [facility] SARS-CoV-2 (COVID-19) RNA NAMRATA+probe Ql (Unsp spec) Negative Normal [facility] UA-REFLEX TO CULTUREon 07-16 RBC NONE SEEN Normal 0-3 [facility] Urinalysis dipstick W Reflex Microscopic panel (U) MANUAL MICROSCOPIC URINES Normal [facility] WBC NONE SEEN Normal 0-3 [facility] Bacteria identified Cx Nom (U) Normal [facility] Comment on above: Result Comment: CULT URE NOT INDICATED Performed at [place] [id number] BILI Negative Normal [facility] Clarity (U) CLEAR Normal [facility] Color (U) YELLOW Normal [facility] GLUC Negative Normal NEG [facility] Hemoglobin Ql (U) Negative Normal NEG [facility] KET Negative Normal NEG [facility] LEUK Negative Normal NEG [facility] NIT Negative Normal NEG [facility] pH (U) 6.5 [pH] Normal 4.6-8.0 [facility] PROT Negative Normal NEG [facility] SP GRAV,URINE 1.015 Normal 1.005-1.030 [facility] URO 0.2 MG/DL Normal 0-1.0 [facility] CBC (INCLUDES DIFF/PLT)on Basophils (Bld) [#/Vol] 0.031 10*3/uL Normal 0-200 [facility] Comment on above: Performed By: #### 4 57, 6399 #### [facility] of [place] [address] [employer] Operator: Catrachito Mata MD Basophils/100 WBC (Bld) 0.6 % Normal [facility] Comment on above: Performed By: #### 4 57, 6399 #### [facility] of [place] [address] [employer] Operator: Catrachito Mata MD Eosinophils (Bld) [#/Vol] 0.138 10*3/uL Normal 15-500 [facility] Comment on above: Performed By: #### 4 57, 6399 #### [facility] of [place] [address] [employer] Operator: Catrachito Mata MD Eosinophils/100 WBC (Bld) 2.7 % Normal [facility] Comment on above: Performed By: #### 4 57, 6399 #### [facility] [place] [address] [employer] Operator: Catrachito Mata MD Erythrocyte distribution width (RBC) [Ratio] 13.6 % Normal 11.0-15.0 [facility] Comment on above: Performed By: #### 4 57, 6399 #### [facility] of [place] [address] [employer] Operator: Catrachito Mata MD Hematocrit (Bld) [Volume fraction] 33.9 % Low 38.5-50.0 [facility] Comment on above: Performed By: #### 4 57, 6399 #### [facility] [place] [address] [employer] Operator: Catrachito Mata MD Hemoglobin (Bld) [Mass/Vol] 11.8 g/dL Low 13.2-17.1 [facility] Comment on above: Performed By: #### 4 57, 6399 #### [facility] [place] [address] [employer] Operator: Catrachito Mata MD Lymphocytes (Bld) [#/Vol] 1.239 10*3/uL Normal 850-3900 [facility] Comment on above: Performed By: #### 4 57, 6399 #### [facility] [place] [address] [employer] Operator: Catrachito Mata MD Lymphocytes/100 WBC (Bld) 24.3 % Normal [facility] Comment on above: Performed By: #### 4 57, 6399 #### [facility] [place] [address] [employer] Operator: Catrachito Mata MD MCH (RBC) [Entitic mass] 31.8 pg Normal 27.0-33.0 [facility] Comment on above: Performed By: #### 4 57, 6399 #### [facility] of [place] [address] [employer] Operator: Catrachito Mata MD MCHC (RBC) [Mass/Vol] 34.8 g/dL Normal 32.0-36.[address] [facility] Comment on above: Performed By: #### 4 57, 6399 #### [facility] [place] [address] [employer] Operator: Catrachito Mata MD MCV (RBC) [Entitic vol] 91.4 fL Normal 80.0-100.0 [facility] Comment on above: Performed By: #### 4 57, 6399 #### [facility] [place] [address] [employer] Operator: Catrachito Mata MD Monocytes (Bld) [#/Vol] 0.469 10*3/uL Normal 200-950 [facility] Comment on above: Performed By: #### 4 57, 6399 #### [facility] of [address] [place] [address] [employer]: Catrachito Mata MD Monocytes/100 WBC (Bld) 9.2 % Normal [facility] Comment on above: Performed By: #### 4 57, 6399 #### [facility] [place] [address] [employer] Operator: Catrachito Mata MD Neutrophils (Bld) [#/Vol] 3.223 10*3/uL Normal 6781-9434 [facility] Comment on above: Performed By: #### 4 57, 6399 #### [facility] [place] [address] [employer] Operator: Catrachito Mata MD Neutrophils/100 WBC (Bld) 63.2 % Normal [facility] Comment on above: Performed By: #### 4 57, 6399 #### [facility] [place] [address] [employer] Operator: Catrachito Mata MD Platelet mean volume (Bld) [Entitic vol] 10.0 fL Normal 7.5-12.5 [facility] Comment on above: Performed By: #### 4 57, 6399 #### [facility] [place] [address] [employer] Operator: Catrachito Mata MD Platelets (Bld) [#/Vol] 211 10*3/uL Normal 140-400 [facility] Comment on above: Performed By: #### 4 57, 6399 #### [facility] [place] [address] [employer] Operator: Catrachito Mata MD RBC (Bld) [#/Vol] 3.71 10*6/uL Low 4.20-5.80 [facility] Comment on above: Performed By: #### 4 57, 6399 #### [facility] [place] [address] [employer] Operator: Catrachito Mata MD WBC (Bld) [#/Vol] 5.1 10*3/uL Normal 3.8-10.8 [facility] Comment on above: Performed By: #### 4 57, 6399 #### [facility] of [address], [address] [place] [address] [employer] Operator: Catrachito Mata MD FERRITINon 05-31-2020 Ferritin [Mass/Vol] 247 ng/mL Normal 24-380 [facility] Comment on above: Performed By: #### 4 57, 6399 #### [facility] of [address], [address] [place] [address] [employer] Operator: Catrachito Mata MD TRANSFERRINon 05-31-2020 Transferrin [Mass/Vol] 229 mg/dL Normal 188-341 [facility] Comment on above: Performed By: #### 4 57, 6399 #### [facility] of [address], [address] [place] [address] [employer] Operator: Catrachito Mata MD COVID-19 Positive/Negativeon 03-16-2020 COVID-19 Positive/Negative Negative Negative [facility] Comment on above: Testing for SARS-CoV -2 by RT-PCRThis test was developed and its performance characteristics determined by [employer] and validated at the [facility]. This test has not been FDA cleared or approved. This test has been authorized by FDA under an Emergency Use Authorization (EUA). This test has been validated in accordance with the FDA's Guidance Document (Policy for Diagnostics Testing in Laboratories Certified to Perform High Complexity Testing under CLIA prior to Emergency Use Authorization for Coronavirus Disease-2019 during the Public Health Emergency) issued on June 09, 2019. This test is only authorized for the duration of time the declaration that circumstances exist justifying the authorization of the emergency use of in vitro diagnostic tests for detection of SARS-CoV-2 virus and/or diagnosis of COVID-19 infection under section 564(b)(1) of the Act, 21 U.S.C. 360bbb-3(b)(1), unless the authorization is terminated or revoked sooner. Otheron 03-16-2020 Coronavirus 2019 PCR Interp N/A [facility] Automated basophil %on 03-12 Basophils/100 WBC (Bld) 0.7 % [facility] Automated basophil counton 0 03-12-2020 Basophils (Bld) [#/Vol] 0.0 10*3/uL 0.0-0.2 [facility] Automated blood lymphocyte c ount (number/volume)on 03-12-2020 Lymphocytes (Bld) [#/Vol] 1.1 10*3/uL 1.00-4.8 [facility] Automated blood lymphocyte c ount as percentage of total leukocyteson 03-12-2020 Lymphocytes/100 WBC (Bld) 25.0 % [facility] Automated blood monocyte cou nton 03-12-2020 Monocytes (Bld) [#/Vol] 0.5 10*3/uL 0.0-0.8 [facility] Automated blood platelet cou nt (count/volume)on 03-12-2020 Platelets (Bld) [#/Vol] 196 10*3/uL 150-450 [facility] Automated blood platelet ira n volume measurementon 03-12-2020 Platelet mean volume (Bld) [Entitic vol] 7.9 fL 6.6-10.1 [facility] Automated eosinophil %on Eosinophils/100 WBC (Bld) 3.3 % [facility] Automated eosinophil counton 03-12-2020 Eosinophils (Bld) [#/Vol] 0.1 10*3/uL 0.0-0.45 [facility] Automated erythrocyte distri bution width ratioon 03-12-2020 Erythrocyte distribution width (RBC) [Ratio] 13.8 % 12.0-14.8 [facility] Automated erythrocyte mean c orpuscular hemoglobin (mass per erythrocyte)on 03-12-2020 MCH (RBC) [Entitic mass] 31.1 pg 27.5-35.2 [facility] Automated erythrocyte mean c orpuscular hemoglobin concentration measurement (mass/volon 03-12-2020 MCHC (RBC) [Mass/Vol] 34.1 g/dL 32.5-35.6 [facility] Automated erythrocyte mean c orpuscular volumeon 03-12-2020 MCV (RBC) [Entitic vol] 91.3 fL 83.5-101 [facility] Automated monocyte %on 03-12 Monocytes/100 WBC (Bld) 10.8 % [facility] Automated neutrophil %on Neutrophils/100 WBC (Bld) 60.2 % [facility] Blood erythrocytes automated count (number/volume)on 03-12-2020 RBC (Bld) [#/Vol] 3.98 10*6/uL 3.90-5.60 [facility] Blood hemoglobin measurement (mass/volume)on 03-12-2020 Hemoglobin (Bld) [Mass/Vol] 12.4 g/dL 13.0-17.0 [facility] Blood leukocytes automated c ount (number/volume)on 03-12-2020 WBC (Bld) [#/Vol] 4.5 10*3/uL 4.5-11.0 [facility] Blood neutrophil count by au tomated method (number/volume)on 03-12-2020 Neutrophils (Bld) [#/Vol] 2.7 10*3/uL 1.8-7.7 [facility] Estimated glomerular filtrat ion rate (GFR) non- Americanon 03-12-2020 GFR/1.73 sq M predicted among non-blacks MDRD (S/P/Bld) [Vol rate/Area] 42 mL/min/{1.73_m2} [facility] Hematocrit [Volume Fraction] of Blood by Automated counton 03-12-2020 Hematocrit (Bld) [Volume fraction] 36.3 % 38.8-50.0 [facility] Otheron 03-12-2020 GFR/1.73 sq M.predicted MDRD (S/P/Bld) [Vol rate/Area] 51 mL/min/{1.73_m2} [facility] Comment on above: GFR estimated refere nce range: According to KDOQI guidelines, <60 ml/min/1.73m2 is sufficient to diagnose a patient with chronic kidney disease. Nucleated RBC/100 WBC (Bld) [Ratio] 0.2 % 0-0.5 [facility] Creatinine Clearance (Chem N/A [facility] Serum or plasma calcium pedro urement (mass/volume)on 03-12-2020 Calcium [Mass/Vol] 10.1 mg/dL 8.2-10.2 [facility] Serum or plasma chloride ira surement (moles/volume)on 03-12-2020 Chloride [Moles/Vol] 101 mmol/L 95-114 [facility] Serum or plasma creatinine m easurement with calculation of estimated glomerular filtron 03-12-2020 Creatinine [Mass/Vol] 1.59 mg/dL 0.64-1.27 [facility] Serum or plasma glucose pedro urement (mass/volume)on 03-12-2020 Glucose [Mass/Vol] 93 mg/dL 70-100 [facility] Comment on above: ADA recommended refe rence rangeRandom Glucose Reference Range is dependent on time and content of last meal. Glucose of more than 200 mg/dL in a nonstressed, ambulatory subject supports the diagnosis of Diabetes Mellitus. Serum or plasma potassium me asurement (moles/volume)on 03-12-2020 Potassium [Moles/Vol] 4.1 mmol/L 3.5-5.1 [facility] Serum or plasma sodium measu rement (moles/volume)on 03-12-2020 Sodium [Moles/Vol] 137 mmol/L 136-146 [facility] Serum or plasma total carbon dioxide measurement (moles/volume)on 03-12-2020 CO2 [Moles/Vol] 24.3 mmol/L 22.0-30.0 [facility] Serum or plasma urea nitroge n measurement (mass/volume)on 03-12-2020 Urea nitrogen [Mass/Vol] 26 mg/dL 9-23 [facility] MAGNESIUMon 02-09-2020 Magnesium [Mass/Vol] 2.0 mg/dL Normal 1.5-2.5 [facility] Comment on above: Performed By: #### 7 14, 881, 213 #### [facility], [address] [place] [id number] [employer] Operator: Catrachito Mata MD PHOSPHATE ( PHOSPHORUS)on 02-09-2020 Phosphate [Mass/Vol] 2.8 mg/dL Normal 2.1-4.3 [facility] Comment on above: Performed By: #### 7 18, 628, 905 #### [facility], [address] [place] [address] [employer] Operator: Catrachito Mata MD URIC ACIDon 02-09-2020 Urate [Mass/Vol] 7.2 mg/dL Normal 4.0-8.0 [facility] Comment on above: Result Comment: Ther apeutic target for gout patients: <6.0 mg/dL NO COLLECTION DATE RECEIVED. WE HAVE USED THE DATE THE SPECIMEN WAS RECEIVED BY THIS LABORATORY THE COLLECTION DATE. IF THIS IS INCORRECT, PLEASE CONTACT CLIENT SERVICES. PHONE NUMBER: [phone] Performed By: #### 7 18, 178, 632 #### [facility], [address] [place] [address] [employer] Operator: Catrachito Mata MD URIC ACIDon 08-05-2019 Urate [Mass/Vol] 7.2 mg/dL Normal 4.0-8.0 [facility] Comment on above: Result Comment: Ther apeutic target for gout patients: <6.0 mg/dL NO COLLECTION DATE RECEIVED. WE HAVE USED THE DATE THE SPECIMEN WAS RECEIVED BY THIS LABORATORY THE COLLECTION DATE. IF THIS IS INCORRECT, PLEASE CONTACT CLIENT SERVICES. PHONE NUMBER: [phone] Performed By: #### 9 05 #### [facility]-[address], [address] [place] [address] [employer] Operator: Catrachito Mata MD Vital Signs Date Time Vital Sign Value Performing Clinician Facility 08-19-2023 14:040 Body height 182.25 cm LINDA Patino Work Phone: [facility] 08-19-2023 14:040 Body mass index (BMI) [Ratio] 28.3 kg/m2 LINDA Patino Work Phone: [facility] 08-19-2023 [id number]:[id number] Body temperature 97.5 [degF] LINDA Patino Work Phone: [facility] 08-19-2023 14:07-0400 Body weight 93.89 kg HOT TAR ROOFER Roberta Cherry Work Phone: [facility] 08-19-2023 14:07-0400 Diastolic blood pressure 76 mm[Hg] H[employer] T[employer] ROOFER Roberta Cherry Work Phone: [facility] 08-19-2023 14:07-0400 Heart rate 96 /min H[employer] T[employer]OO[employer] Roberta Cherry Work Phone: [facility] 08-19-2023 14:07-0400 Respiratory rate 16 /min H[employer] T[employer]OOFER Roberta Cherry Work Phone: [facility] 08-19-2023 14:07-0400 SaO2% (BldA) [Mass fraction] 98 % H[employer] T[employer]OOFER Roberta Cherry Work Phone: [facility] 08-19-2023 14:07-0400 Systolic blood pressure 124 mm[Hg] HOT T[employer] ROOFER Roberta Cherry Work Phone: [facility] 07-21-2023 10:35-0400 Diastolic blood pressure 71 mm[Hg] HOT TAR ROOFER Roberta Cherry Work Phone: [facility] 07-21-2023 10:35-0400 Heart rate 84 /min H[employer] T[employer] ROOFER Roberta Cherry Work Phone: [facility] 07-21-2023 10:35-0400 Respiratory rate 16 /min H[employer] T[employer] ROOFER Roberta Cherry Work Phone: [facility] 07-21-2023 10:35-0400 SaO2% (BldA) [Mass fraction] 97 % H[employer] T[employer] ROOFER Roberta Cherry Work Phone: [facility] 07-21-2023 10:35-0400 Systolic blood pressure 126 mm[Hg] HOT T[employer] ROOFER Roberta Cherry Work Phone: [facility] 07-21-2023 10:02-0400 Inhaled oxygen flow rate 3 L/min H[employer] T[employer] ROOFER Roberta Cherry Work Phone: [facility] 07-21-2023 09:20-0400 Body height 182.88 cm HOT TAR ROOFERAbel Patino Work Phone: [facility] 07-21-2023 09:20-0400 Body weight 93.44 kg LINDA Patino Work Phone: [facility] 06-25-2023 10:14-0400 Body height 185.42 cm HOT TAR ROOFERAbel Patino Work Phone: [facility] 06-25-2023 10:14-0400 Body mass index (BMI) [Ratio] 28 kg/m2 HOT TAR ROOFERAbel Patino Work Phone: [facility] 06-25-2023 10:14-0400 Body weight 96.61 kg LINDA Patino Work Phone: [facility] 02-18-2023 14:00-0500 Body height 185.42 cm Cristofer Walliss Other [facility] [employer] Other 02-18-2023 14:00-0500 Body mass index (BMI) [Ratio] 27.86 kg/m2 Cristofer Walliss Other [facility] [employer] Other 02-18-2023 14:00-0500 Body temperature 98.8 [degF] Cristofer Walliss Other [employer] Other 02-18-2023 14:00-0500 Body weight 95.8 kg Azarianna Walliss Other [employer] Other 02-18-2023 14:00-0500 Diastolic blood pressure 81 mm[Hg] Azarianna [employer] Other [facility] [employer] Other 02-18-2023 14:00-0500 Respiratory rate 18 /min Aziz Bakhous Other [employer] Other 02-18-2023 14:00-0500 SaO2% (BldA) [Mass fraction] 97 % Aziz Bakhous Other [employer] Other 02-18-2023 14:00-0500 Systolic blood pressure 144 mm[Hg] Aziz Bakhous Other [employer] Other 08-26-2022 15:00-0400 Body height 185.42 cm Azarianna Bakhous Other [employer] Other 08-26-2022 15:00-0400 Body mass index (BMI) [Ratio] 26.91 kg/m2 Azarianna Bakhous Other [employer] Other 08-26-2022 15:00-0400 Body temperature 97.3 [degF] Aziz Bakhous Other [employer] Other 08-26-2022 15:00-0400 Body weight 92.53 kg Azarianna Bakhous Other [employer] Other 08-26-2022 15:00-0400 Diastolic blood pressure 73 mm[Hg] Aziz Bakhous Other [employer] Other 08-26-2022 15:00-0400 Respiratory rate 18 /min Aziz Bakhous Other [employer] Other 08-26-2022 15:00-0400 SaO2% (BldA) [Mass fraction] 98 % Aziz Bakhous Other [employer] Other 08-26-2022 15:00-0400 Systolic blood pressure 119 mm[Hg] Azarianna Walliss Other [employer] Other 06-10-2022 14:40-0400 Body height 185.42 cm Willian Nuñez Other [employer] Other 06-10-2022 14:40-0400 Body mass index (BMI) [Ratio] 27.7 kg/m2 Willian Nuñez Other [employer] Other 06-10-2022 14:40-0400 Body weight 95.26 kg Willian Nuñez Other [employer] Other 06-10-2022 14:40-0400 Diastolic blood pressure 62 mm[Hg] Willian Nuñez Other [employer] Other 06-10-2022 14:40-0400 Systolic blood pressure 170 mm[Hg] Willian Nuñez Other [employer] Other 02-18-2022 17:20-0500 Body height 185.42 cm Cristofer Walliss Other [employer] Other 02-18-2022 17:20-0500 Body mass index (BMI) [Ratio] 27.73 kg/m2 Azarianna Juvenciohous Other [employer] Other 02-18-2022 17:20-0500 Body temperature 96.9 [degF] Bamarianna Juvenciohous Other [employer] Other 02-18-2022 17:20-0500 Body weight 95.35 kg Bamarianna [employer]venc[employer]hous Other [employer] Other 02-18-2022 17:20-0500 Diastolic blood pressure 89 mm[Hg] Aziz Bakanastasias Other [employer] Other 02-18-2022 17:20-0500 Respiratory rate 18 /min Azarianna Bakanastasias Other [employer] Other 02-18-2022 17:20-0500 SaO2% (BldA) [Mass fraction] 97 % Azarianna Bakanastasias Other [employer] Other 02-18-2022 17:20-0500 Systolic blood pressure 166 mm[Hg] Aziz Kadis Other [employer] Other 10-29-2021 12:20-0400 Body height 185.42 cm Willian Nuñez Other [employer] Other 10-29-2021 12:20-0400 Body mass index (BMI) [Ratio] 27.7 kg/m2 Willian Nuñez Other [employer] Other 10-29-2021 12:20-0400 Body weight 95.26 kg Willian Nuñez Other [employer] Other 08-21-2021 16:00-0400 Body height 185.42 cm Cristofer Walliss Other [employer] Other 08-21-2021 16:00-0400 Body mass index (BMI) [Ratio] 27.73 kg/m2 Cristofer Walliss Other [employer] Other 08-21-2021 16:00-0400 Body temperature 96.5 [degF] Azarianna Walliss Other [employer] Other 08-21-2021 16:00-0400 Body weight 95.35 kg Cristofer Grey Other [employer] Other 08-21-2021 16:00-0400 Diastolic blood pressure 71 mm[Hg] Cristofer Grey Other [employer] Other 08-21-2021 16:00-0400 Respiratory rate 18 /min Cristofer Grey Other [employer] Other 08-21-2021 16:00-0400 SaO2% (BldA) [Mass fraction] 96 % Cristofer Grey Other [employer] Other 08-21-2021 16:00-0400 Systolic blood pressure 125 mm[Hg] Cristofer Grey Other [employer] Other 07-30-2021 12:00-0400 Body height 185.42 cm Willian Nuñez Other [employer] Other 07-30-2021 12:00-0400 Body mass index (BMI) [Ratio] 28.76 kg/m2 Willian Nuñez Other [employer] Other 07-30-2021 12:00-0400 Body weight 98.88 kg Willian Nuñez Other [employer] Other 07-15-2021 11:00-0400 Body height 185.42 cm Willian Nuñez Other [employer] Other 07-15-2021 11:00-0400 Body mass index (BMI) [Ratio] 27.84 kg/m2 Willian Nuñez Other [employer] Other 07-15-2021 11:00-0400 Body weight 95.71 kg Willian Nuñez Other [employer] Other 04-25-2021 14:00-0500 Body height 185.42 cm Willian Nuñez Other [employer] Other 04-25-2021 14:00-0500 Body mass index (BMI) [Ratio] 27.84 kg/m2 Willian Nuñez Other [employer] Other 04-25-2021 14:00-0500 Body weight 95.71 kg Willian Nuñez Other [employer] Other 03-14-2021 15:40-0500 Body height 185.42 cm Willian Nuñez Other [employer] Other 03-14-2021 15:40-0500 Body mass index (BMI) [Ratio] 27.84 kg/m2 Willian Nuñez Other [employer] Other 03-14-2021 15:40-0500 Body weight 95.71 kg Willian Nuñez Other [employer] Other 12-13-2020 15:40-0400 Body height 185.42 cm Willian Nuñez Other [employer] Other 12-13-2020 15:40-0400 Body mass index (BMI) [Ratio] 28.36 kg/m2 Willian Nuñez Other [employer] Other 12-13-2020 15:40-0400 Body weight 97.52 kg Willian Nuñez Other [employer] Other 12-13-2020 15:40-0400 Diastolic blood pressure 75 mm[Hg] Willian Nuñez Other [employer] [facility] [employer] Other 12-13-2020 15:40-0400 Systolic blood pressure 130 mm[Hg] Willian Nuñez Other [facility] [employer] Other Encounters Encounter Date Encounter Type Care Provider Facility Start: 10-27-2023 End: 10-27-2023 ambulatory [facility] Start: 10-22-2023 End: 10-22-2023 ambulatory [facility] Work Phone: Start: 10-22-2023 End: 10-22-2023 Patient encounter procedure Counts [facility] Work Phone: Start: 10-14-2023 End: 10-14-2023 ambulatory LINDA Patino Work Phone: [facility] Work Phone: Start: 10-14-2023 End: 10-14-2023 Patient encounter procedure LINDA Patino Work Phone: [facility] Work Phone: Start: 10-14-2023 Non-patient / Non-visit Counts Include [facility] Work Phone: Start: 10-07-2023 End: 10-07-2023 [facility] Start: 09-24-2023 End: 09-24-2023 ambulatory LINDA Patino Work Phone: [facility] Work Phone: Start: 09-24-2023 End: 09-24-2023 Patient encounter procedure LINDA Patino Work Phone: [facility] Work Phone: Start: 09-18-2023 End: 09-18-2023 ambulatory HOT TAR ROOFERAbel SaucedoRoberta A Cherry Work Phone: [facility] Work Phone: Start: 09-18-2023 End: 09-18-2023 Patient encounter procedure LINDA Granados Cherry Work Phone: Counts Include 234 [facility] Physician [facility] Work Phone: Start: 08-31-2023 End: 08-31-2023 [facility] Start: 08-26-2023 Non-patient / Non-visit HOT TAR ROOFERAbel Patino Work Phone: Counts Include 234 [facility] Physician [facility] Work Phone: Start: 08-19-2023 End: 08-19-2023 ambulatory HOT TAR ROOFERAbel Granados Madan Cherry Work Phone: [facility] Work Phone: Start: 08-19-2023 End: 08-19-2023 Patient encounter procedure LINDA Robertaganesh Patino Work Phone: Counts Include 234 [facility] Neph[facility] Work Phone: Start: 08-18-2023 End: 08-18-2023 ambulatory HOT TAR ROOFER Roberta Hager Cherry Work Phone: [facility] Work Phone: Start: 08-18-2023 End: 08-18-2023 Patient encounter procedure LINDA Granados Cherry Work Phone: Counts Include 234 [facility] Work Phone: Start: 08-17-2023 End: 08-17-2023 ambulatory [facility] Start: 07-21-2023 End: 07-21-2023 ambulatory [facility] Facility:[facility] Start: 07-21-2023 Non-patient / Non-visit HOT TAR ROOFER Negro Patino Work Phone: Counts Include 234 [facility] Work Phone: Start: 07-21-2023 End: 07-21-2023 Admission to same day surgery center LINDA Patino Work Phone: [facility] Work Phone: Start: 07-16-2023 End: 07-16-2023 ambulatory Angel Solomon Facility:[facility] Start: 07-16-2023 End: 07-16-2023 ambulatory HOT TAR ROOFERAbel Patino Work Phone: [facility] Work Phone: Start: 07-16-2023 End: 07-16-2023 Patient encounter procedure LINDA Patino Work Phone: Counts Include 234 [facility] Work Phone: Start: 06-25-2023 End: 06-25-2023 ambulatory Willian Nuñez Facility:[facility] Start: 06-25-2023 End: 06-25-2023 ambulatory HOT TAR ROOFERAbel Patino Work Phone: [facility] Work Phone: Start: 06-25-2023 End: 06-25-2023 Patient encounter procedure LINDA Patino Work Phone: Counts Include 234 [facility] Neurosurgery Work Phone: Start: 05-29-2023 Refill Rajani Thorne CNA [facility] Comment on above: Essential hypertensi on, benign Start: 05-14-2023 Telephone encounter Rajani Thorne CNA [facility] Comment on above: Care Management Start: 04-06-2023 Refill Roberta blount HOT TAR ROOFER-CHUCK TENDER Work Phone: [facility] Start: 03-12-2023 Orders Only Roberta blount HOT TAR ROOFER-CHUCK TENDER Work Phone: [facility] Comment on above: Dermatitis Start: 02-25-2023 End: 02-25-2023 ambulatory ROBERTA PATINO [facility] Start: 02-18-2023 End: 02-18-2023 ambulatory Aziz Bakhous Other [facility] Other Start: 02-18-2023 Office outpatient vi sit 25 minutes Aziz Bakhous [facility] Start: 08-26-2022 End: 08-26-2022 ambulatory Aziz Bakhous Other [facility] Other Start: 08-26-2022 Office outpatient vi sit 15 minutes Aziz Bakhous [facility] Start: 06-10-2022 End: 06-10-2022 ambulatory Willian Nuñez Other [facility] Other Start: 06-10-2022 Office outpatient vi sit 15 minutes Willian Nuñez [facility] Start: 02-18-2022 End: 02-18-2022 ambulatory Aziz Bakhous Other [facility] Other Start: 02-18-2022 Office outpatient vi sit 15 minutes Aziz Bakhous [facility] Start: 02-04-2022 End: 02-04-2022 ambulatory HOT TAR ROOFERAbel Patino Work Phone: [facility] Work Phone: Start: 02-04-2022 End: 02-04-2022 Patient encounter procedure LINDA Patino Work Phone: [facility] Start: 10-29-2021 End: 10-29-2021 ambulatory Willian Nuñez Other [facility] Other Start: 10-29-2021 Office outpatient vi sit 15 minutes Willian Nuñez [facility] Start: 10-29-2021 End: 10-29-2021 Patient encounter procedure HOT TAR ROOFER Roberta Cherry Work Phone: [facility]-X[facility] Main Page Start: 09-24-2021 Encounter for genera l adult medical examination without abnormal findings ROBERTA Madan CHERRY [facility] Start: 09-24-2021 Patient encounter procedure Roberta Cherry HOT TAR ROOFER-CHUCK TENDER Work Phone: [facility] Start: 08-21-2021 End: 08-21-2021 ambulatory Flarianna Wallisaleks Other [facility] Other Start: 08-21-2021 Office outpatient vi sit 15 minutes Azarianna Walliss [facility] Start: 08-14-2021 End: 08-14-2021 Patient encounter procedure HOT TAR ROOFER Roberta Patino Work Phone: [facility]-Lab Main Page Start: 07-30-2021 End: 07-30-2021 ambulatory Willian Nuñez Other [facility] Other Start: 07-30-2021 Postop follow up vis it related to original px Willian Nuñez [facility] Start: 07-15-2021 (Post-Op) Post-Op Willian Nuñez [facility] Start: 07-15-2021 End: 07-15-2021 ambulatory Willian Nuñez Other [facility] Other Start: 07-08-2021 End: 07-08-2021 ambulatory Willian Nuñez Other [facility] Other Start: 07-08-2021 Telephone encounter Willian Nuñez [facility] Start: 07-01-2021 Admission to same da y surgery center Willian Nuñez [facility] Start: 07-01-2021 End: 07-01-2021 ambulatory Willian Nuñez Other [facility] Other Start: 06-28-2021 End: 06-28-2021 ambulatory Lynn Garcia Other [place] [facility] Other Start: 06-28-2021 Telephone encounter Lynn Garcia [facility] Neph[facility] Start: 04-25-2021 End: 04-25-2021 ambulatory Willian Juvenal Other [place] [facility] Other Start: 04-25-2021 Office outpatient vi sit 15 minutes Willian Nuñez [facility] Start: 04-10-2021 End: 04-10-2021 ambulatory Willian Nuñez Other [place] [facility] Other Start: 04-10-2021 Telephone encounter Willian Nuñez [facility] Start: 03-14-2021 End: 03-14-2021 ambulatory Willian Nuñez Other [place] [facility] Other Start: 03-14-2021 Office outpatient vi sit 15 minutes Willian Nuñez [facility] Start: 02-26-2021 End: 02-26-2021 ambulatory Lynn Garcia Other [place] [facility] Other Start: 02-26-2021 Telephone encounter Lynn Garcia [facility] Start: 12-13-2020 Office outpatient vi sit 15 minutes Willian Nuñez [facility] Start: 03-16-2020 End: 03-16-2020 Patient encounter procedure Jared Petty -Pre-Surgical Testing Start: 03-12-2020 End: 03-12-2020 Patient encounter procedure Jared Anasagrarios -Pre-Surgical Testing Start: 02-14-2020 End: 02-14-2020 Patient encounter procedure Jared Petty -X[facility] Main Page Procedures Date Procedure Procedure Detail Performing Clinician Start: 07-21-2023 Injection of local anesthetic into sacroiliac joint LINDA Patino Work Phone: Start: 07-16-2023 X-ray of lumbar spin e, four views LINDA Patino Work Phone: Start: 06-25-2023 X-ray of cervical spine HOT TAR ROOFER Roberta Cherry Work Phone: Start: 09-26-2022 Adult depression scr eening assessment Roberta Cherry HOT TAR ROOFER-CHUCK TENDER Work Phone: Start: 02-04-2022 X-ray of cervical spine HOT TAR ROOFER Roberta Cherry Work Phone: Start: 10-29-2021 X-ray of cervical spine LINDA Granados Cherry Work Phone: Start: 02-14-2020 Radiography of cervi lan spine Jared Petty Plan of Treatment Date Care Activity Detail Author Start: 09-29-2032 DTaP,Tdap and Td Vaccines (2 - Td or Tdap) DTaP,Tdap and Td Vaccines (2 - Td or Tdap) [facility] Start: 02-26-2024 Adult BMI Screening Adult BMI Screening [facility] Start: 02-26-2024 Tobacco Screening Tobacco Screening [facility] Start: 11-18-2023 Fall Risk Screening Fall Risk Screening [facility] Start: 10-07-2023 End: 10-07-2023 Patient encounter procedure 10/07/2023 10:40 AM EDT Office Visit [facility] [address] [place] [phone] Roberta Patino APRN-CHUCK TENDER [address], [place] [address] [facility] Start: 09-30-2023 Medicare Annual Wellness Visit Medicare Annual Wellness Visit [facility] Start: 09-27-2023 Depression Screening Depression Screening [facility] Start: 08-31-2023 End: 08-31-2023 Patient encounter procedure 08/31/2023 2:40 PM EDT Office Visit [facility] [address] [place] [phone] Roberta Patino APRN-CHUCK TENDER [address], [place], [place] [id number] [facility] Start: 07-21-2023 [facility] Start: 07-16-2023 X-ray of lumbar spine, four views XR lumbar spine AP/LAT/FLX/EXT [facility] Start: 06-25-2023 X-ray of cervical spine XR cerv spine AP/LAT/FLX/EXT [facility] Start: 11-24-2022 Administration of varicella zoster vaccine Zoster (Shingles) Vaccine (3 of 3) [facility] Start: 11-07-2022 Influenza vaccination Influenza Vaccine [facility] Start: 01-19-1958 Adult BMI Follow Up Plan Adult BMI Follow Up Plan [facility] Patient Education [facility] Work Phone: Patient referral [facility] Work Phone: Renal function 2000 panel - Serum or Plasma [facility] Immunizations Immunization Date Immunization Notes Care Provider Fa cility 12-12-2022 Covid-19,mrna, Lnp-s , Pf, 50mcg/0.5ml 12+ Roberta Patino HOT TAR ROOFER-CHUCK TENDER Work Phone: [facility] 09-29-2022 tetanus toxoid, redu raji diphtheria toxoid, and acellular pertussis vaccine, adsorbed Roberta Cherry HOT TAR ROOFER-CHUCK TENDER Work Phone: [facility] 09-29-2022 zoster vaccine recombinant Roberta Patino HOT TAR ROOFER-CHUCK TENDER Work Phone: [facility] 09-29-2022 zoster vaccine, unspecified formulation Roberta Patino HOT TAR ROOFER-CHUCK TENDER Work Phone: [facility] 12-16-2021 influenza virus vacc ine, unspecified formulation Roberta Patino HOT TAR ROOFER-CHUCK TENDER Work Phone: [facility] 01-16-2021 COVID-19 mRNA-1273 (Moderna) HOT TAR ROOFER Roberta Patino Work Phone: [facility] 12-08-2020 Influenza Vaccine, Quadrivalent, Adjuvanted Roberta Cherry HOT TAR ROOFER-CHUCK TENDER Work Phone: [facility] 05-07-2020 COVID-19, mRNA, LNP- S, PF, 100mcg/0.5mL Dose Roberta Cherry HOT TAR ROOFER-CHUCK TENDER Work Phone: [facility] 05-04-2020 COVID-19 mRNA-1273 (Moderna) HOT TAR ROOFER Roberta Cherry Work Phone: [facility] 04-07-2020 COVID-19, mRNA, LNP- S, PF, 100mcg/0.5mL Dose Roberta Cherry HOT TAR ROOFER-CHUCK TENDER Work Phone: [facility] 04-06-2020 COVID-19 mRNA-1273 (Moderna) HOT TAR ROOFER Roberta Cherry Work Phone: [facility] 02-18-2020 influenza, injectabl e, quadrivalent, preservative free Roberta Cherry HOT TAR ROOFER-CHUCK TENDER Work Phone: [facility] 01-25-2019 Influenza, injectabl e, Madin Teri Canine Kidney, quadrivalent with preservative Roberta Cherry HOT TAR ROOFER-CHUCK TENDER Work Phone: [facility] 01-25-2019 pneumococcal polysaccharide vaccine, 23 valent Roberta Cherry HOT TAR ROOFER-CHUCK TENDER Work Phone: [facility] 01-13-2018 pneumococcal conjuga te vaccine, 13 valent Roberta Cherry HOT TAR ROOFER-CHUCK TENDER Work Phone: [facility] 01-08-2018 influenza, injectabl e, quadrivalent, contains preservative Roberta Cherry HOT TAR ROOFER-CHUCK TENDER Work Phone: [facility] 03-09-2014 zoster vaccine, live Roberta Cherry HOT TAR ROOFER-CHUCK TENDER Work Phone: [facility] Payers Date Payer Category Payer Unknown FRANCISCO MENDEZ [id number] 2016-Present [phone] [address] [place] [address] [id number] 2016 Unknown [id number] 2005 Medicare MEDICARE MEDICAR E PART A & B [id number] 2005-Present [phone] [address] [place] [address] [id number] 2005 Medicare [id number] 1940 Unknown [id number] 1940 Unknown [id number] 1940 Unknown [id number] 1940 Unknown [id number] 1940 Unknown [id number] 86 Medicare [id number] Self-pay Self Pay [id number] Social History Date Type Detail Facility Start: 03-12-2020 End: 08-19-2023 Tobacco smoking status WYIS Ex-smoker (finding) [facility] Start: 1940 Sex Assigned At Male F [facility] Start: 10-23-2020 End: 02-25-2023 Sex Assigned At [facility] Start: 07-01-2021 End: 07-02-2021 Tobacco smoking status NHIS Never smoked tobacco (finding) [facility] End: 03-09-1999 History of tobacco use Current smoker [facility] End: 03-09-1999 History of tobacco use Cigarette Smoker [facility] Start: 07-09-2022 Tobacco use and exposure Smoke less tobacco non-user [facility] Start: 02-25-2023 Alcohol intake Current non-dr technical staff engineer of alcohol (finding) [facility] Start: 10-23-2020 End: 02-25-2023 History of Social function [facility] Do you belong to any clubs or organizations such as episcopalian groups, unions, fraternal or athletic groups, or school groups? No [facility] Are you now , , , , never or living with a partner? [facility] How often to you hav e a drink containing alcohol? Monthly or less [facility] How many standard dr inks containing alcohol do you have on a typical day? Patient declined [facility] How often do you hav e 6 or more drinks on 1 occasion? Never [facility] Do you feel stress - tense, restless, nervous, or anxious, or unable to sleep at night because your mind is troubled all the time - these days [OSQ] Not at all [facility] Start: 10-23-2020 Education 16 [facility] Start: 1940 Sex Assigned At Not on file P [facility] Medical Equipment Procedure Code Equipment Code Equipment Origin al Text Equipment Identifier Dates Decompression, spine, cervical, posterior approach OSTEOAMP GRANULES 10CC FDA Start: 03-19-2020 Decompression, spine, cervical, posterior approach Bone-screw internal spinal fixation system, non-sterile ()[id number] FDA Start: 03-19-2020 Decompression, spine, cervical, posterior approach Bone-screw internal spinal fixation system, non-sterile ()[id number] FDA Start: 03-19-2020 Decompression, spine, cervical, posterior approach Bone-screw internal spinal fixation system, non-sterile ()[id number] FDA Start: 03-19-2020 Decompression, spine, cervical, posterior approach Bone-screw internal spinal fixation system, non-sterile ()[id number] FDA Start: 03-19-2020 Decompression, spine, cervical, posterior approach Bone-screw internal spinal fixation system, non-sterile ()[id number] FDA Start: 03-19-2020 Decompression, spine, cervical, posterior approach Bone-screw internal spinal fixation system, non-sterile ()[id number] FDA Start: 03-19-2020 Decompression, spine, cervical, posterior approach Bone-screw internal spinal fixation system, non-sterile ()[id number] FDA Start: 03-19-2020 Decompression, spine, cervical, posterior approach CANCELLOUS 15CC CRUSHED FDA Start: 07-01-2021 Decompression, spine, cervical, posterior approach Spinal fusion graft kit ()[id number] FDA Start: 07-01-2021 Decompression, spine, cervical, posterior approach Bone-screw internal spinal fixation system, non-sterile ()[id number] FDA Start: 07-01-2021 Decompression, spine, cervical, posterior approach Bone-screw internal spinal fixation system, non-sterile ()[id number] FDA Start: 07-01-2021 Decompression, spine, cervical, posterior approach Bone-screw internal spinal fixation system, non-sterile ()[id number] FDA Start: 07-01-2021 Decompression, spine, cervical, posterior approach Bone-screw internal spinal fixation system, non-sterile ()[id number] FDA Start: 07-01-2021 Decompression, spine, cervical, posterior approach OSTEOAMP GRANULES 10CC FDA Start: 03-19-2020 Decompression, spine, cervical, posterior approach CANCELLOUS 15CC CRUSHED FDA Start: 07-01-2021 Decompression, spine, cervical, posterior approach OSTEOAMP GRANULES 10CC FDA Start: 03-19-2020 Decompression, spine, cervical, posterior approach CANCELLOUS 15CC CRUSHED FDA Start: 07-01-2021 Decompression, spine, cervical, posterior approach OSTEOAMP GRANULES 10CC FDA Start: 03-19-2020 Decompression, spine, cervical, posterior approach CANCELLOUS 15CC CRUSHED FDA Start: 07-01-2021 Decompression, spine, cervical, posterior approach OSTEOAMP GRANULES 10CC FDA Start: 03-19-2020 Decompression, spine, cervical, posterior approach CANCELLOUS 15CC CRUSHED FDA Start: 07-01-2021 Decompression, spine, cervical, posterior approach OSTEOAMP GRANULES 10CC FDA Start: 03-19-2020 Decompression, spine, cervical, posterior approach CANCELLOUS 15CC CRUSHED FDA Start: 07-01-2021 Decompression, spine, cervical, posterior approach OSTEOAMP GRANULES 10CC FDA Start: 03-19-2020 Decompression, spine, cervical, posterior approach CANCELLOUS 15CC CRUSHED FDA Start: 07-01-2021 Decompression, spine, cervical, posterior approach OSTEOAMP GRANULES 10CC FDA Start: 03-19-2020 Decompression, spine, cervical, posterior approach CANCELLOUS 15CC CRUSHED FDA Start: 07-01-2021 Decompression, spine, cervical, posterior approach OSTEOAMP GRANULES 10CC FDA Start: 03-19-2020 Decompression, spine, cervical, posterior approach CANCELLOUS 15CC CRUSHED FDA Start: 07-01-2021 Decompression, spine, cervical, posterior approach OSTEOAMP GRANULES 10CC FDA Start: 03-19-2020 Decompression, spine, cervical, posterior approach CANCELLOUS 15CC CRUSHED FDA Start: 07-01-2021 Decompression, spine, cervical, posterior approach OSTEOAMP GRANULES 10CC FDA Start: 03-19-2020 Decompression, spine, cervical, posterior approach CANCELLOUS 15CC CRUSHED FDA Start: 07-01-2021 Decompression, spine, cervical, posterior approach OSTEOAMP GRANULES 10CC FDA Start: 03-19-2020 Decompression, spine, cervical, posterior approach CANCELLOUS 15CC CRUSHED FDA Start: 07-01-2021 Goals Date Patient Goal Desired Activity /State Clinical Notes 12-13-2020 to 10-22-2023 Note Date & Type Note Facility 10-22-2023 Chief complaint+Reason for visit Narrative Reason for Visit Chronic pain Other low back pain Sacroiliitis, not elsewhere classified BPH loc w urin obs/LUTS Chronic kidney disease, stage 3a Hypercalcemia Hyperparathyroid bone disease Vitamin B12 deficiency Arthritis of lumbosacral spine Chronic pain Other low back pain Sacroiliitis, not elsewhere classified Arthritis of lumbosacral spine Chronic pain Other low back pain Sacroiliitis, not elsewhere classified [facility] Work Phone: 1(723) 785-642108-15-2024 Evaluation note* Diagnosis Onset Date Resolution Status Chronic pain acute Other low back pain acute Sacroiliitis, not elsewhere classified acute BPH loc w urin obs/LUTS acut e Chronic kidney disease, stage 3a acute Hypercalcemia acute Hyperparathyroid bone disease acute Vitamin B12 deficiency acute Arthritis of lumbosacral spine acute Chronic pain acute Other low back pain acute Sacroiliitis, not elsewhere classified acute Arthritis of lumbosacral spine acute Chronic pain acute Other low back pain acute Sacroiliitis, not elsewhere classified acute [facility] Work Phone: 1(956) 716-295703-07-2024 Miscellaneous Notes* Telephone Encounter - Rajani Thorne CNA - 05/14/2023 2:28 PM EST Barney notified of enrollment to the care management. [facility] [id number] Telephone encounter Note* Telephone Encounter - Rajani Thorne CNA - 05/14/2023 2:28 PM EST Barney notified of enrollment to the care management. 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 Serum creatinine has been variable between 1.3-1.4 mg/dl this year. Patient has good blood pressure on losartan and diuretics.UA is benign. Pro/Cr 100 mg/g No change of medications is indicated at this point. We will recheck renal panel in 6 months and adjust as indicated. 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 He has no edema. Will continue same BP meds 13 Dec, 2023 Hypercalcemia (ICD-1 0 - E83.52) This has resolved with stopping vitamin D supplement. I will continue to monitor calcium along with 25-hydroxy vitamin D level Feb, Hyperparathyroid bon e disease (ICD-10 - E21.0) PTH 80. No need for active VD Feb, BPH (benign prostati c hyperplasia) (ICD-10 - N40.0) Continue same BPH medications Feb, Vitamin B12 deficiency (ICD-10 - E53.8) Will continue VB12 supplement. Will check VB12 level next visit along with CBC Feb, Other He talks oxycodone/acetaminop hen as needed for pain. He does not take nonsteroidal anti-inflammatory drugs. 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 He had an episode of acute kidney injury that resolved with creatinine up to 5 mg/dL. Serum creatinine has been variable between 1.3-1.4 mg/dl this year. Patient has good blood pressure on losartan and diuretics.UA is benign. Pro/Cr 100 mg/g No change of medications is indicated at this point. We will recheck renal panel in 6 months and adjust as indicated. 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 He has no edema. Will continue same BP meds Aug, Hypercalcemia (ICD-1 0 - E83.52) This has resolved with stopping vitamin D supplement. 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 No need for active VD Aug, Other He talks oxycodone/acetaminop hen as needed for pain. He does not take nonsteroidal anti-inflammatory drugs. [facility] Other 04-04-2023 Evaluation note* Encounter Date Diagnosis Assessment Notes Treatment Notes Treatment Clinical Notes Jun, Cervical spondylosis with myelopathy (ICD-10 - M47.12) I independently reviewed the plain x-ray of the cervical spine and the report and compared to previous. There appears to be 1 broken screw it is possible there are 2. The patient clinically continues to do extremely well better than postop and having no new symptoms. His balance is getting worse I think this is multifactorial and not a cervical problem. He does not have a hyperreflexia overall strength upper extremities is 5/5 throughout. I think he is done very well he is happy with his progress I will see him again in 6 months with a dynamic neck x-ray. 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 He had an episode of acute kidney injury that resolved with creatinine up to 5 mg/dL. Serum creatinine has been variable between 1.3-1.4 mg/dl this year. Patient has good blood pressure on losartan and diuretics. No change of medications is indicated at this point. We will recheck renal panel in 6 months and adjust as indicated. 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 He has no edema. Will continue same BP meds Feb, Hypercalcemia (ICD-10 - E83.52) This has resolved with stopping vitamin D supplement. I will continue to monitor calcium along with 25-hydroxy vitamin D level Feb, Other He talks oxycodone/acetaminoph en as needed for pain. He does not take nonsteroidal anti-inflammatory drugs. [facility] Other 08-23-2022 Evaluation note* Encounter Date Diagnosis Assessment Notes Treatment Notes Treatment Clinical Notes Oct, Cervical radiculopathy (ICD-10 - M54.12) At 3-1/2 months I have independently looked at the AP and lateral x-ray of the cervical spine. There may be a fractured screw at T1. Interestingly in the office we were talking about screws fracturing. The patient has minimal neck discomfort; overall he feels very good. There appears to be no gross movement on flexion and extension views. I would like another view of the neck in 3 months. 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 He had an episode of acute kidney injury that resolved with creatinine up to 5 mg/dL. Serum creatinine has been variable between 1.3-1.4 mg/dl this year. Patient has good blood pressure on losartan and diuretics. No change of medications is indicated at this point. We will recheck renal panel in 6 months and adjust as indicated. 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 He has no edema. Aug, Hypercalcemia (ICD-10 - E83.52) This has resolved with stopping vitamin D supplement. I will continue to monitor calcium along with 25-hydroxy vitamin D level Aug, Other He talks oxycodone/acetaminoph en as needed for pain. He does not take nonsteroidal anti-inflammatory drugs. [facility] Other 05-24-2022 Evaluation note* Encounter Date Diagnosis Assessment Notes Treatment Notes Treatment Clinical Notes July, Cervical radiculopathy at C8 (ICD-10 - M54.12) Mr. Mcmillan is doing very well, his radicular symptoms are completely gone. He has not worn his collar in 2 weeks and we have counseled him that he should be wearing it. I reviewed the x-ray of his cervical spine which shows good bony alignment and good hardware placement. I shared these with him and his daughter. I will see him again in 2 months with another x-ray of the cervical spine. July, History of fusion of cervical spine (ICD-10 - Z98.1) [facility] Other 02-17-2022 Evaluation note* Encounter Date Diagnosis Assessment Notes Treatment Notes Treatment Clinical Notes Apr, Cervical radiculopathy at C8 (ICD-10 - M54.12) I have independently reviewed the MRI of the cervical spine and the plain x-ray and the reports and the EMG report and lab work to include CBC, sed rate and CRP. This patient has no evidence of infection, he does have hypermobility at C7-T1 with discogenic changes. The patient is now developing acute radiculopathy at C8 with numbness and pain in a C8 distribution bilaterally. Left seems to be worse than right. Given these findings, and the findings on the MRI, I would recommend strongly that the patient has a revision of the cervical hardware with a C7-T1 posterior cervical fusion. I think this will relieve his radiculopathy and an element of his neck pain. It will not fix all of his problems, and I have discussed this in detail with the patient and his son. At this point he wants to think it over. It was difficult keeping him on task, but I believe he understands what the issues are. I will send Prenisone for him in the meantime Apr, Cervical myelopathy (ICD-10 - G95.9) [facility] Other 01-06-2022 Evaluation note* Encounter Date Diagnosis Assessment Notes Treatment Notes Treatment Clinical Notes Mar, Cervical myelopathy (ICD-10 - G95.9) This gentleman has a number of issues including advanced age over 80. He has neck pain which is probably worse since his surgery but he had significant spinal cord compression requiring cervical fusion which clinically went well. He continues to have neck pain, he is seeing pain management but it is not determined if it helped him in the long-term yet. Unfortunately I cannot help neck pain very much. He tells me he gets numbness distal to the wrist bilaterally in the hands which may be ulnar neuropathy or C8 radiculopathy. I have ordered an EMG of the upper extremity bilateral and a new MRI of the cervical spine to ensure he does not have pathology at C7-T1. His x-ray in December with flexion-extension shows slightly increased movement at C7-T1 with no subluxation. 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 He balance is poor, numerous other complaints. I looked at his x-ray independently today of the cervical spine and compared to previous; he appears to have good cervical fusion with intact hardware. I told him if he wants to help his neck pain he should try pain management. I think the neck pain is multifactorial. So much is also due to advanced age. I will see him back in March with a new x-ray of the back I again have offered pain management but he has declined Dec, Cervical myelopathy (ICD-10 - G95.9) [facility] Other chief complaint+Reason for visit Narrative* Chief Complaint m47.12 FOLLOW UP PCD W/X-RAY CONSULT DR. NUÑEZ M41.449 Back Pain Back Pain PROCEDURE F/U Reason for Visit Arthropathy of both sacroiliac joints History of fusion of cervical spine Spondylolisthesis, cervical region Chronic pain Other low back pain Sacroiliitis, not elsewhere classified Chronic pain Other low back pain Sacroiliitis, not elsewhere classified [facility] Work Phone: Chief complaint+Reason for visit Narrative* Chief Complaint m47.12 FOLLOW UP PCD W/X-RAY CONSULT DR. NUÑEZ M47.189 Back Pain Back Pain PROCEDURE F/U RENAL 6 month f/u Reason for Visit Arthropathy of both sacroiliac joints History of fusion of cervical spine Spondylolisthesis, cervical region Chronic pain Other low back pain Sacroiliitis, not elsewhere classified Chronic pain Other low back pain Sacroiliitis, not elsewhere classified BPH loc w urin obs/LUTS Chronic kidney disease, stage 3a Hypercalcemia Hyperparathyroid bone disease Vitamin B12 deficiency [facility] Work Phone: Chief complaint+Reason for visit Narrative* Chief Complaint m47.12 FOLLOW UP PCD W/X-RAY CONSULT DR. NUÑEZ M47.611 Back Pain Back Pain PROCEDURE F/U RENAL 6 month f/u LUIZ SI JOINT INJECTIONS /VW Reason for Visit Arthropathy of both sacroiliac joints History of fusion of cervical spine Spondylolisthesis, cervical region Chronic pain Other low back pain Sacroiliitis, not elsewhere classified Chronic pain Other low back pain Sacroiliitis, not elsewhere classified BPH loc w urin obs/LUTS Chronic kidney disease, stage 3a Hypercalcemia Hyperparathyroid bone disease Vitamin B12 deficiency [facility] Work Phone: Chief complaint+Reason for visit Narrative* Chief Complaint CONSULT DR. NUÑEZ R76.812 Back Pain Back Pain PROCEDURE F/U RENAL 6 month f/u LUIZ SI JOINT INJECTIONS /VW F/U LUIZ SI JOINT INJECTIONS Reason for Visit Chronic pain Other low back pain Sacroiliitis, not elsewhere classified Chronic pain Other low back pain Sacroiliitis, not elsewhere classified BPH loc w urin obs/LUTS Chronic kidney disease, stage 3a Hypercalcemia Hyperparathyroid bone disease Vitamin B12 deficiency Arthritis of lumbosacral spine Chronic pain Other low back pain Sacroiliitis, not elsewhere classified [facility] Work Phone: Chiwk complaint+Reason for visit Narrative* Chief Complaint Back Pain Back Pain PROCEDURE F/U RENAL 6 month f/u LUIZ SI JOINT INJECTIONS /VW F/U LUIZ SI JOINT INJECTIONS LUIZ LUMBAR FACET MBB L4 L5 /VW Reason for Visit Chronic pain Other low back pain Sacroiliitis, not elsewhere classified BPH loc w urin obs/LUTS Chronic kidney disease, stage 3a Hypercalcemia Hyperparathyroid bone disease Vitamin B12 deficiency Arthritis of lumbosacral spine Chronic pain Other low back pain Sacroiliitis, not elsewhere classified [facility] Work Phone: Evaluation noteNo InformationNort [employer] Other Evaluation noteNo assessment information available [facility] Work Phone: Evaluation note* Diagnosis Dermatitis Contact dermatitis and other eczema, due to unspecified cause documented [facility] this encounter [facility] Diagnosis Essential hypertension, benign [facility] Diagnosis Onset Date Resolution Status 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 acute Spondylolisthesis, cervical region acute [facility] Work Phone: evaluation note* Diagnosis Onset Date Resolution Status 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 acute Spondylolisthesis, cervical region acute Chronic pain acute Other low back pain acute Sacroiliitis, not elsewhere classified acute [facility] Work Phone: evaluation note* Diagnosis Onset Date Resolution Status 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 acute Spondylolisthesis, cervical region acute Chronic pain acute Other low back pain acute Sacroiliitis, not elsewhere classified acute Chronic pain acute Other low back pain acute Sacroiliitis, not elsewhere classified acute [facility] Work Phone: Evaluation note* Diagnosis Onset Date Resolution Status 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 acute Spondylolisthesis, cervical region acute Chronic pain acute Other low back pain acute Sacroiliitis, not elsewhere classified acute Chronic pain acute Other low back pain acute Sacroiliitis, not elsewhere classified acute BPH loc w urin obs/LUTS acut e Chronic kidney disease, stage 3a acute Hypercalcemia acute Hyperparathyroid bone disease acute Vitamin B12 deficiency acute [facility] Work Phone: Evaluation note* Diagnosis Onset Date Resolution Status Chronic pain acute Other low back pain acute Sacroiliitis, not elsewhere classified acute Chronic pain acute Other low back pain acute Sacroiliitis, not elsewhere classified acute BPH loc w urin obs/LUTS acut e Chronic kidney disease, stage 3a acute Hypercalcemia acute Hyperparathyroid bone disease acute Vitamin B12 deficiency acute Arthritis of lumbosacral spine acute Chronic pain acute Other low back pain acute Sacroiliitis, not elsewhere classified acute [facility] Work Phone: Evaluation note* Diagnosis Onset Date Resolution Status Chronic pain acute Other low back pain acute Sacroiliitis, not elsewhere classified acute BPH loc w urin obs/LUTS acut e Chronic kidney disease, stage 3a acute Hypercalcemia acute Hyperparathyroid bone disease acute Vitamin B12 deficiency acute Arthritis of lumbosacral spine acute Chronic pain acute Other low back pain acute Sacroiliitis, not elsewhere classified acute [facility] Work Phone: History general Narrative - Reported* Type Description Date Medical History hypertension Medical History cervical myelopathy Medical History spinal stenosis Medical History pneumonia Medical History Acute Kidney Injury Medical History chronic kidney disease Surgical History back surgery Surgical History shoulder surgery Surgical History hemorrhoidectomy Surgical History hernia repair Surgical History Cervical fusion-Doctor Juvenal Hospitalization History See Above [facility] Other Hispcxe general Narrative - Reported* Type Description Date Medical History hypertension Medical History cervical myelopathy Medical History spinal stenosis Medical History pneumonia Medical History Acute Kidney Injury Medical History chronic kidney disease Surgical History back surgery Surgical History shoulder surgery Surgical History hemorrhoidectomy Surgical History hernia repair Surgical History Cervical fusion-Doctor Juvenal 06/11/2021 Hospitalization History See Above [facility] Other InstructionsNot on filedocumented in this encounter [facility] filed[facility] filedocumented in this encounter [facility] Advance Directives No Advanced Directives Records Found Advance Directive Response Recorded Date/ Time Advance Directives No February 14, 2020 3:51pm Advance Directive Response Recorded Date/ Time Advance Directives No February 14, 2020 4:51pm Chief Complaint and Reason for Visit Chief Complaint M54.2 Myelopathy Chief Complaint M54.2 Myelopathy Myelopathy Chief Complaint N18.31 m54.12 Chief Complaint m47.12 Chief Complaint m47.12 FOLLOW UP PCD W/X-RAY Reason for Visit Arthropathy of both sacroiliac joints History of fusion of cervical spine Spondylolisthesis, cervical region Chief Complaint m47.12 FOLLOW UP PCD W/X-RAY CONSULT DR. 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 Reason for Visit Arthropathy of both sacroiliac joints History of fusion of cervical spine Spondylolisthesis, cervical region Chronic pain Other low back pain Sacroiliitis, not elsewhere classified Assessments No Assessments Information AvailableNo Assessments Information Available Family History No Family History Records Found Relationship Condition Age at Onset Recorded Date/T fawad Not Specified Heart disease Unknown father Hypertension Unknown daughter Cerebrovascular accident (CVA) Unknown Relationship Condition Age at Onset Recorded Date/T fawad Not Specified Hypertension Unknown father Heart disease Unknown Hypertension Unknown daughter Cerebrovascular accident (CVA) Unknown brother History of agent Sherman exposure Unknown Relationship Condition Age at Onset Recorded Date/T fawad Not Specified Hypertension Unknown father Heart disease Unknown Hypertension Unknown daughter Cerebrovascular accident (CVA) Unknown brother History of agent Sherman exposure Unknown brother Family history of mental disorder Unknown Malignant neoplasm Unknown daughter Hypertension Unknown History of stroke Unknown father Unknown family member Family history of other condition Unknow n Not Specified Unknown sister Malignant neoplasm Unknown Relationship Condition Age at Onset Recorded Date/T fawad mother Hypertension Unknown father Heart disease Unknown Hypertension Unknown daughter Cerebrovascular accident (CVA) Unknown brother History of agent Sherman exposure Unknown brother Family history of mental disorder Unknown Malignant neoplasm Unknown daughter Hypertension Unknown History of stroke Unknown father Unknown family member Family history of other condition Unknow n mother Unknown sister Malignant neoplasm Unknown Summary Purpose Reason for Referral Reason Evaluate BUE EM G Diagnosis 1 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) Referral Organization [facility] Referring Provider First Name Willian Referring Provider Last Name Juvenal Referring Provider Specialty Neurologica l Surgery Referred Organization Unknown Facility Referred Provider Jose Ramon Curran Referred Provider Specialty Neurology Referral Priority Routine General Notes Fore, Fabby M 022 08:42:45 AM >Received today and this was already sent P2P by the office Additional Source Comments (unrecognized sect ion and content) No Status Records FoundNo Status Records FoundNo Status Records FoundNo Status Records FoundNo Status Records Found INFORMATION SOURCE (unrecogn ized section and content) DATE CREATED AUTHOR 06/01/2020 [facility] DATE CREATED AUTHOR AUTHOR'S ORGANIZ ATION 11/09/2020 [facility] DATE CREATED AUTHOR AUTHOR'S ORGANIZ ATION 07/24/2023 [facility] DATE CREATED AUTHOR AUTHOR'S ORGANIZ ATION 08/18/2023 [facility] DATE CREATED AUTHOR AUTHOR'S ORGANIZ ATION [facility]/20[facility] REASON FOR VISIT (unrecogniz ed section and content) Reason Comments Med Refill Reason Onset Date Comments Care Management 05/14/2023 Reason Onset Date Comments Med Refill 05/29/2023 Care Teams (unrecognized sec tion and content) Team Status: Active Member Role Status Dates Roberta Patino APRN HAND BLOCKER-C Primary Care Provider Active Team Status: Active Member Role Status Dates Roberta Patino APRN HAND BLOCKER-C Primary Care Provider Active Start: June 25, 2023 Willian Nuñez MD Attending Provider Active Star t: June 25, 2023 Team Status: Inactive Member Role Status Dates Roberta Patino APRN HAND BLOCKER-C Primary Care Provider Active Start: June 25, 2023 End: June 25, 2023 Willian Nuñez MD Attending Provider Active Star t: June 25, 2023 End: June 25, 2023 Team Status: Inactive Member Role Status Dates Roberta Patino APRN HAND BLOCKER-C Primary Care Provider Active Willian Nuñez MD Attending Provider Active Team Status: Inactive Member Role Status Dates Roberta Patino APRN HAND BLOCKER-C Primary Care Provider Active Lynn Garcia MD Attending Provider Active Bartender Manager Relationship Specialty Start Date End Date Roberta Patino APRN-CHUCK TENDER [address] [place] [address] PCP - General Family Medicine 09/13/20 Bartender Manager Relationship Specialty Start Date End Date Roberta Patino APRN-CNP [address], [place] [address] PCP - General Family Medicine 09/13/20 Bartender Manager Relationship Specialty Start Date End Date Roberta Patino APRN-CNP [address], [place] [address] PCP - General Family Medicine 09/13/20 Team Status: Inactive Member Role Status Dates Roberta Patino APRN HAND BLOCKER-C Primary Care Provider Active Start: July 16, 2023 End: July 16, 2023 Angel Carbajal MD Attending Provider Active Sta rt: July 16, 2023 End: July 16, 2023 Team Status: Active Member Role Status Dates Roberta Patino APRN HAND BLOCKER-C Primary Care Provider Active Start: July 16, 2023 Angel Carbajal MD Attending Provider Active Sta rt: July 16, 2023 Team Status: Inactive Member Role Status Dates Roberta Patino APRN HAND BLOCKER-C Primary Care Provider Active Start: July 21, 2023 End: July 21, 2023 Angel Carbajal MD Attending Provider Active Sta rt: July 21, 2023 End: July 21, 2023 Team Status: Active Member Role Status Dates Roberta Patino APRN HAND BLOCKER-C Primary Care Provider Active Start: July 20 Angel Carbajal MD Attending Provider, Other Provider Active Start: July 21, 2023 Team Status: Inactive Member Role Status Dates Roberta Patino APRN HAND BLOCKER-C Primary Care Provider Active Start: August 18, 2023 End: August 18, 2023 Angel Carbajal MD Attending Provider Active Sta rt: August 18, 2023 End: August 18, 2023 Team Status: Inactive Member Role Status Ye Patino APRN HAND BLOCKER-C Primary Care Provider Active Start: August 19, 2023 End: August 19, 2023 Cristofer Grey MD Attending Provider Active Star t: August 19, 2023 End: August 19, 2023 Team Status: Active Member Role Status Dates Roberta Patino APRN HAND BLOCKER-C Primary Care Provider Active Start: August 26, 2023 Angel Carbajal MD Attending Provider Active Sta rt: August 26, 2023 Team Status: Inactive Member Role Status Ye Patino APRN HAND BLOCKER-C Primary Care Provider Active Start: September 18, 2023 End: September 18, 2023 Angel Carbajal MD Attending Provider Active Sta rt: September 18, 2023 End: September 18, 2023 Team Status: Inactive Member Role Status Dates Roberta Patino APRN HAND BLOCKER-C Primary Care Provider Active Start: September 24, 2023 End: September 24, 2023 Angel Carbajal MD Attending Provider Active Sta rt: September 24, 2023 End: September 24, 2023 Team Status: Inactive Member Role Status Dates Roberta Patino APRN HAND BLOCKER-C Primary Care Provider Active Start: October 14, 2023 End: October 14, 2023 Angel Carbajal MD Attending Provider Active Sta rt: October 14, 2023 End: October 14, 2023 Team Status: Active Member Role Status Dates Roberta Patino APRN HAND BLOCKER-C Primary Care Provider Active Start: October 14, 2023 Angel Carbajal MD Attending Provider Active Sta rt: October 14, 2023 Team Status: Inactive Member Role Status Dates Roberta Patino APRN HAND BLOCKER-C Primary Care Provider Active Start: October 22, 2023 End: October 22, 2023 Angel Carbajal MD Attending Provider Active Sta rt: October 22, 2023 End: October 22, 2023 Goals (unrecognized section and content) Goals may be documented in a n alternate section FOR RECORDS PERTAINING TO PATIENTS WHO ARE OR HAVE BEEN ENROLLED IN A CHEMICAL DEPENDENCY/SUBSTANCEABUSE PROGRAM, SOME INFORMATION MAY BE OMITTED. This clinical summary was aggregated from multiple sources. Caution should be exercised in using it in the provision of clinical care. This summary normalizes information from multiple sources, and as a consequence, information in this document may materially change the coding, format and clinical context of patient data. In addition, data may be omitted in some cases. CLINICAL DECISIONS SHOULD BE BASED ON THE PRIMARY CLINICAL RECORDS. [facility] [employer] provides no warranty or guarantee of the accuracy or completeness of information in this document.
== END 2023-12-01 12:38 | disposition home or self-care (01) ==
LOC: MRI 12:40
PROVIDERS: PCP Nurse Practitioner; Visit Provider Anesthesiology
DX: M48.061 Spinal stenosis, lumbar region without neurogenic claudication (principal); M51.36 Other intervertebral disc degeneration, lumbar region; M85.88 Other specified disorders of bone density and structure, other site
CPT/HCPCS: 72114; 72148; 77080

== ENCOUNTER 2023-12-14 12:05 | Outpatient (OUT) | payer MEDICARE, BC, SELFPAY ==
--- OUTSIDE RECORDS SUMMARY | 2023-12-14 12:23 | XMS_ITS | CCD ---
Author Organization [facility] Care Team Providers Care Garden Equipment Mechanic Name Role Phone Jared Petty Primary Care Provider [phone] Willian Nuñez Attending Provider Willian Nuñez Unavailable Lynn Garcia Unavailable Cristofer Grey Unavailable LINDA Patino Primary Care Provider MD Lynn Garcia Attending Provider [phone] MD Willian Nuñez Attending Provider [phone] LINDA Patino Primary Care Provider MD Willian Nuñez Attending Provider [phone] Roberta John Primary Care Provi chong LINDA Patino Primary Care Provider MD Willian Nuñez Attending Provider MD Angel Carbajal Attending Provider Angel Carbajal Admitting Unavailable Angel Carbajal Attending Unavailable Roberta Patino Primary Care Unavailable Angel Carbajal Admitting Unavailable Angel Carbajal Attending Unavailable Roberta Patino Primary Care Unavailable Willian Nuñez Admitting Unavailable Willian Nuñez Attending Unavailable Roberta Patino Primary Care Unavailable BAKFERN AZIZ Referring Unavailable ROBERTA PATINO Primary Care Unavailable LINDA Patino Primary Care Provider LINDA Patino Primary Care Provider MD Angel Carbajal Attending Provider [phone] ROBERTA PATINO Attending Unavailable ROBERTA PATINO Referring [...] Translations: [aspirin] Drug Allergy 9 GI Disturbance [facility] (14 sources) NSAIDS (Non-Steroidal Anti-Inflamma Propensity to adverse reactions 1 GI bleed [facility] (20 sources) Anti-Inflammato ry Enzyme Drug allergy 4 Unknown, Unknown Reaction [facility] (20 sources) Naproxen; Translations: [NAPROXEN] Drug Allergy 9 Other (See Comments) [facility] Other Medications Current Medications Medication Drug Class(es) [...] 2020 1:00am June 17, 2021 12:49pm nystatin 747039 unt/ml topical cream (20 sources) Polyene Antifungal Start: 10-31-2022 End: 03-12-2023 nystatin (MYCOSTATIN) cream Indications: Dermatitis apply 1 APPLICATION topically to affected area if needed for DERMATITIS 30 g 2 03/12/2023 Active Start: 06-17-2021 Nystatin Activ e 1 APPLIC TOPICAL As Directed June 17, 2021 12:00am Nystatin 838124 UNIT/GM 1 application Externally Twice a day Active Nystatin 041095 UNIT/GM 1 application Externally Twice a day [...] 9:32am docusate sodium 50 mg / sennosides, care home 8.6 mg oral tablet (12 sources) Start: [...] width (RBC) [Ratio] 14.0 % Normal 11.5-15.0 [facility] Comment on above: Performed By: #### C BC, UPCR, CMP, 06888-6, 2777-1, 3084-1, 2731-8, 2132-9, 83972-5 #### [facility] ([id number]) [address] [place] [address] Hematocrit (Bld) [Volume fraction] 39.1 % Normal 39-49 [facility] Comment on above: Performed By: #### C BC, UPCR, CMP, 75145-5, 2777-1, 3084-1, 2731-8, 2132-9, 04847-9 #### [facility] ([id number]) [address] [place] [address] Hemoglobin (Bld) [Mass/Vol] 13.6 g/dL Normal 13.0-17.0 [facility] Comment on above: Performed By: #### C BC, UPCR, CMP, 12634-1, 2777-1, 3084-1, 2731-8, 2132-9, 26071-0 #### [facility] ([id number]) [address] [place] [address] MCH (RBC) [Entitic mass] 32.9 pg Normal 27-34 [facility] Comment on above: Performed By: #### C BC, UPCR, CMP, 52009-2, 2777-1, 3084-1, 2731-8, 2132-9, 83074-4 #### [facility] ([id number]) [address], [address] [place] [address] MCHC (RBC) [Mass/Vol] 34.9 g/dL Normal 32-36 [facility] Comment on above: Performed By: #### C BC, UPCR, CMP, 15154-3, 2777-1, 3084-1, 2731-8, 2132-9, 72758-0 #### [facility] ([id number]) [address], [address] [place] [address] MCV (RBC) [Entitic vol] 94 fL Normal 80-100 [facility] Comment on above: Performed By: #### C BC, UPCR, CMP, 10470-8, 2777-1, 3084-1, 2731-8, 2131-9, 58516-0 #### [facility] ([id number]) [address], [address] [place] [address] Platelet mean volume (Bld) [Entitic vol] 8.3 fL Normal 7-12 [facility] Comment on above: Performed By: #### C BC, UPCR, CMP, 38373-7, 2777-1, 3084-1, 2731-8, 2131-9, 01819-6 #### [facility] ([id number]) [address], [facility] [address] [place] [address] Platelets (Bld) [#/Vol] 189 10*3/uL Normal 150-450 [facility] Comment on above: Performed By: #### C BC, UPCR, CMP, 32543-2, 2777-1, 3084-1, 2731-8, 2132-9, 09614-5 #### [facility] ([id number]) [address], [address] [place] [address] RBC COUNT 4.15 X10E12/L Normal 4.10-5.70 [facility] Comment on above: Performed By: #### C BC, UPCR, CMP, 27856-2, 2777-1, 3084-1, 2731-8, 2132-9, 56784-4 #### [facility] ([id number]) [address], [address] [place] [address] WBC (Bld) [#/Vol] 5.1 10*3/uL Normal 4.0-11.0 [facility] Comment on above: Performed By: #### C BC, UPCR, CMP, 66217-0, 2777-1, 3084-1, 2731-8, 2132-9, 39108-6 #### [facility] ([id number]) [address], [address] [place] [address] COMPREHENSIVE METABOLIC PANE Dima 08-17-2023 Albumin [Mass/Vol] 4.2 g/dL Normal 3.2-5.3 [facility] Comment on above: Performed By: #### C BC, UPCR, CMP, 79751-9, 2777-1, 3084-1, 2731-8, 2132-9, 25032-3 #### [facility] ([id number]) [address], [address] [place] [address] ALP [Catalytic activity/Vol] 61 U/L Normal 39-130 [facility] Comment on above: Performed By: #### C BC, UPCR, CMP, 18544-7, 2777-1, 3084-1, 2731-8, 2132-9, 12161-7 #### [facility] ([id number]) [address], [address] [place] [address] ALT [Catalytic activity/Vol] 21 U/L Normal 0-40 [facility] Comment on above: Performed By: #### C BC, UPCR, CMP, 35395-3, 2777-1, 3084-1, 2731-8, 2132-9, 05287-6 #### [facility] ([id number]) [address], [address] [place] [address] Anion gap [Moles/Vol] 8 mmol/L Normal 5-15 [facility] Comment on above: Performed By: #### C BC, UPCR, CMP, 51052-1, 2777-1, 3084-1, 2731-8, 2132-9, 36177-6 #### [facility] ([id number]) [address], [address] [place] [address] AST [Catalytic activity/Vol] 19 U/L Normal 0-41 [facility] Comment on above: Performed By: #### C BC, UPCR, CMP, 53916-8, 2777-1, 3084-1, 2731-8, 2131-9, 18290-4 #### [facility] ([id number]) [address], [address] [place] [address] Bilirubin [Mass/Vol] 0.6 mg/dL Normal 0.3-1.2 [facility] Comment on above: Performed By: #### C BC, UPCR, CMP, 25374-5, 2777-1, 3084-1, 2731-8, 2131-9, 52253-2 #### [facility] ([id number]) [address], [address] [place] [address] Calcium [Mass/Vol] 9.7 mg/dL Normal 8.5-10.5 [facility] Comment on above: Performed By: #### C BC, UPCR, CMP, 69513-0, 2777-1, 3084-1, 2731-8, 2131-9, 81563-8 #### [facility] ([id number]) [address], [address] [place] [address] Chloride [Moles/Vol] 104 mmol/L Normal 98-109 [facility] Comment on above: Performed By: #### C BC, UPCR, CMP, 75037-1, 2777-1, 3084-1, 2731-8, 2132-9, 18744-8 #### [facility] ([id number]) [address], [address] [place] [address] CO2 [Moles/Vol] 29 mmol/L Normal 22-32 [facility] Comment on above: Performed By: #### C BC, UPCR, CMP, 85356-9, 2777-1, 3084-1, 2731-8, 2-9, 87481-4 #### [facility] ([id number]) [address], [address] [place] [address] Creatinine [Mass/Vol] 1.29 mg/dL Normal 0.60-1.30 [facility] Comment on above: Result Comment: METH OD TRACEABLE TO IDMS STANDARD Performed By: #### C BC, UPCR, CMP, 29188-5, 2777-1, 3084-1, 2731-8, 2131-9, 70158-9 #### [facility] ([id number]) [address], [address] [place] [address] GFR/1.73 sq M.predicted among non-blacks MDRD (S/P/Bld) [Vol rate/Area] 55 mL/min/{1.73_m2} Low >59 [facility] Comment on above: Result Comment: Reported eGFR is based on the CKD-EPI 2020 equation that does not use a race coefficient. Performed By: #### C BC, UPCR, CMP, 65226-3, 7-1, 3084-1, 2731-8, 2131-9, 96748-3 #### [facility] ([id number]) [address], [address] [place] [address] Glucose [Mass/Vol] 94 mg/dL Normal 65-99 [facility] Comment on above: Performed By: #### C BC, UPCR, CMP, 73691-6, 2777-1, 3084-1, 2731-8, 2132-9, 76518-9 #### [facility] ([id number]) [address], [address] [place] [address] Potassium [Moles/Vol] 4.4 mmol/L Normal 3.5-5.0 [facility] Comment on above: Performed By: #### C BC, UPCR, CMP, 04198-8, 2777-1, 3084-1, 2731-8, 2132-9, 69728-9 #### [facility] ([id number]) [address], [address] [place] [address] Protein [Mass/Vol] 6.7 g/dL Normal 6.0-8.0 [facility] Comment on above: Performed By: #### C BC, UPCR, CMP, 85079-9, 7-1, 3084-1, 2731-8, 2131-9, 58238-3 #### [facility] ([id number]) [address], [address] [place] [address] Sodium [Moles/Vol] 141 mmol/L Normal 134-146 [facility] Comment on above: Performed By: #### C BC, UPCR, CMP, 50400-7, 2777-1, 3084-1, 2731-8, 2131-9, 21347-0 #### [facility] ([id number]) [address], [address] [place] [address] Urea nitrogen [Mass/Vol] 23 mg/dL Normal 5-27 [facility] Comment on above: Performed By: #### C BC, UPCR, CMP, 96715-1, 2777-1, 3084-1, 2731-8, 2-9, 22579-2 #### [facility] ([id number]) [address], [address] [place] [address] MAGNESIUMon 08-17-2023 Magnesium [Mass/Vol] 2.1 mg/dL Normal 1.8-2.6 [facility] Comment on above: Performed By: #### C BC, UPCR, CMP, 88034-3, 7-1, 3084-1, 2731-8, 2131-9, 46003-9 #### [facility] ([id number]) [address], [address] [place] [address] PHOSPHORUSon 08-17-2023 Phosphate [Mass/Vol] 2.3 mg/dL Low 2.4-4.9 [facility] Comment on above: Performed By: #### C BC, UPCR, CMP, 21797-6, 7-1, 3084-1, 2731-8, 2131-9, 93286-2 #### [facility] ([id number]) [address], [address] [place] [address] PROTEIN CREAT RATIOon 2023 RANDOM URINE PROTEIN 190 mg/L High <120 [facility] Comment on above: Performed By: #### C BC, UPCR, CMP, 12846-4, 7-1, 3084-1, 2730-8, 9, 27675-8 #### [facility] ([id number]) [address], [address] [place] [address] U/PRO/COMPOUNDING AND FINISHING SUPERVISOR RATIO CALC 0.14 Normal <0.2 [facility] Comment on above: Result Comment: Neph rotic Syndrome is associated with ratios >3.5 Performed By: #### C BC, UPCR, CMP, 49757-1, 7-1, 3084-1, 2730-8, 2131-9, 23499-1 #### [facility] ([id number]) [address], [address] [place] [address] URINE CREATININE,RDM 131.58 mg/dL Normal [facility] Comment on above: Performed By: #### C BC, UPCR, CMP, 68425-7, 7-1, 3084-1, 2731-8, 2131-9, 52367-2 #### [facility] ([id number]) [address], [address] [place] [address] Parathyrin.intact [Mass/Vol] on 08-17-2023 PTH INTACT 88 pg/mL Normal 12-88 [facility] Comment on above: Performed By: #### C BC, UPCR, CMP, 74716-8, 2777-1, 3084-1, 2731-8, 9, 60504-7 #### [facility] ([id number]) [address], [address] [place] [address] URIC ACIDon 08-17-2023 Urate [Mass/Vol] 5.2 mg/dL Normal 2.6-7.2 [facility] Comment on above: Performed By: #### C BC, UPCR, CMP, 82784-7, 7-1, 3084-1, 1-8, 2131-11, 92788-1 #### [facility] ([id number]) [address], [address] [place] [address] URINALYSISon 08-17-2023 Bilirubin Ql (U) Negative Normal NEG [facility] Comment on above: Performed By: #### U A #### [facility] ([id number]) [address], [address] [place] [address] BLOOD/HGB Negative Normal NEG [facility] Comment on above: Performed By: #### U A #### [facility] ([id number]) [address], [address] [place] [address] Color (U) YELLOW Normal YELLOW [facility] Comment on above: Performed By: #### U A #### [facility] ([id number]) [address], [address] [place] [address] Glucose Ql (U) Negative Normal NEG [facility] Comment on above: Performed By: #### U A #### [facility] ([id number]) [address], [address] [place] [address] Ketones Ql (U) Negative Normal NEG [facility] Comment on above: Performed By: #### U A #### [facility] ([id number]) [address] [place] [address], [address] [place] [address] Leukocyte esterase Test strip Ql (U) Negative Normal NEG [facility] Comment on above: Performed By: #### U A #### [facility] ([id number]) [address] [place] [address], [address] [place] [address] MUCOUS PRESENT Abnormal NONE [facility] Comment on above: Performed By: #### U A #### [facility] ([id number]) [address] [place] [address] Nitrite Ql (U) Negative Normal NEG [facility] Comment on above: Performed By: #### U A #### [facility] ([id number]) [address] [facility], [address] [place] [address] pH (U) 6.0 [pH] Normal 5.0-8.5 [facility] Comment on above: Performed By: #### U A #### [facility] ([id number]) [address] [place] [address], [address] [place] [address] Protein Ql (U) Trace Abnormal NEG [facility] Comment on above: Performed By: #### U A #### [facility] ([id number]) [address] [facility], [address] [place] [address] R.B.CELLS 1 /hpf Normal 0-5 [facility] Comment on above: Performed By: #### U A #### [facility] ([id number]) [address] [place] [address] [address] [place] [address] Specific gravity (U) [Rel density] 1.023 Normal 1.003-1.035 [facility] Comment on above: Performed By: #### U A #### [facility] ([id number]) [address] [facility], [address] [place] [address] SQUAMOUS EPITHELIUM <1 Normal 0-5 [facility] [place] [facility] Comment on above: Performed By: #### U A #### [facility] ([id number]) [address], [address] [place] [address] TURBIDITY CLEAR Normal CLEAR [facility] Comment on above: Performed By: #### U A #### [facility] ([id number]) [address], [address] [place] [address] Urobilinogen (U) [Mass/Vol] mg/dL Normal <1.1 [facility] Comment on above: Performed By: #### U A #### [facility] ([id number]) [address], [address] [facility] [address] W.B.CELLS 1 /hpf Normal 0-5 [facility] Comment on above: Performed By: #### U A #### [facility] ([id number]) [address] [place] [address] VITAMIN B12on 08-17-2023 Cobalamin (Vitamin B12) [Mass/Vol] 539 pg/mL Normal 180-914 [facility] Comment on above: Performed By: #### C BC, UPCR, CMP, 39688-7, 2777-1, 3084-1, 2731-8, 2132-9, 64904-4 #### [facility] ([id number]) [address] [place] [address] Vitamin D+Metabolites [Mass/ Vol]on 08-17-2023 VITAMIN D 25 HYD TOT 58.8 ng/mL Normal 30-100 [facility] Comment on above: Result Comment: Vitamin D status 25 [place] Vitamin D Deficiency <20 ng/mL Insufficiency 20-29 ng/mL Sufficiency 30-100 ng/mL Toxicity >100 ng/mL NOTE: A pediatric reference range has not been established by the director of income tax of this kit. The [place] [employer] recommends a Vitamin D level of = or >20ng/mL in infants and children. Performed By: #### C BC, UPCR, CMP, 06315-7, 2777-1, 3084-1, 2731-8, 2132-9, 72026-6 #### [facility] ([id number]) [address] [place] [address] XR lumbar spine AP/LAT/FLX/E XTon 07-16-2023 XR lumbar spine AP/LAT/FLX/EXT [facility] [place] [address] [place] [address] XRay Report Signed Patient: Marciano Mcmillan MR#: [id number] : 1940 Acct:[id number] Age/Sex: 83 / M ADM Date: 07/16/23 Loc: [facility] Room: Type: [facility] Attending Dr: Angel Carbajal MD Copies [...] Rahul Beavers M.D.07/16/2023 11:58 AM Dictation Location: [place] [address] Transcribed By: [facility] 07/16/23 1158 Dictated By: Rahul Beavers DO 07/16/23 1157 Signed By: 07/16/23 1158 Normal [facility] XR cerv spine AP/LAT/FLX/EXT on 06-25-2023 XR cerv spine AP/LAT/FLX/EXT [facility] Main [place] [address] [place], [place] [address] XRay Report Signed Patient: Marciano Mcmillan MR#: [id number] : 1940 Acct:[id number] Age/Sex: 83 / M ADM Date: 06/25/23 Loc: XD Room: Type: [facility] Attending Dr: Willian Nuñez MD Copies [...] Osiel Calvert M.D.06/25/2023 1:59 PM Dictation Location: [place] [address] Transcribed By: [facility] 06/25/23 1359 Dictated By: Osiel Calvert II, MD 06/25/23 1357 Signed By: 06/25/23 1359 Normal [facility] Blood hemoglobin measurement (mass/volume)Ordered By: Lynn Garcia on 08-14-2021 Hemoglobin (Bld) [Mass/Vol] 12.0 g/dL 13.0-17.0 [facility] Creatinine [Mass/volume] in UrineOrdered By: Lynn Garcia on 08-14-2021 Creatinine (U) [Mass/Vol] 27.8 mg/dL [facility] Comment on above: No reference range e stablished Creatinine and Glomerular fi ltration rate.predicted panel (S/P/Bld)Ordered By: Lynn Garcia on 08-14-2021 Creatinine [Mass/Vol] 1.35 mg/dL 0.64-1.27 [facility] Erythrocyte distribution wid th Auto (RBC) [Ratio]Ordered By: Lynn Garcia on 08-14-2021 Erythrocyte distribution width (RBC) [Ratio] 14.4 % 12.0-14.8 [facility] Estimated glomerular filtrat ion rate (GFR) non- AmericanOrdered By: Lynn Garcia on 08-14-2021 GFR/1.73 sq M.predicted among non-blacks MDRD (S/P/Bld) [Vol rate/Area] 51 mL/Min [facility] Hematocrit Auto (Bld) [Volum e fraction]Ordered By: Lynn Garcia on 08-14-2021 Hematocrit (Bld) [Volume fraction] 36.0 % 38.8-50.0 [facility] MCH Auto (RBC) [Entitic mass ]Ordered By: Lynn Garcia 08-14-2021 MCH (RBC) [Entitic mass] 30.0 pg 27.5-35.2 [facility] MCHC Auto (RBC) [Mass/Vol]Or dered By: Lynn Garcia on 08-14-2021 MCHC (RBC) [Mass/Vol] 33.5 g/dL 32.5-35.6 [facility] MCV Auto (RBC) [Entitic vol] Ordered By: Lynn Garcia on 08-14-2021 MCV (RBC) [Entitic vol] 89.8 fL 83.5-101 F [facility] No Panel InformationOrdered By: Lynn Garcia on 08-14-2021 Estimated GFR () > 60 mL/Min [facility] Comment on above: GFR estimated refere nce range: According to KDOQI guidelines, <60 ml/min/1.73m2 is sufficient to diagnose a patient with chronic kidney disease. Pharmacy Creatinine Clearance (Chem N/A [facility] Phosphate [Mass/volume] in S jill or PlasmaOrdered By: Lynn Garcia on 08-14-2021 Phosphate [Mass/Vol] 2.5 mg/dL 2.5-4.6 [facility] Platelet mean volume Auto (B ld) [Entitic vol]Ordered By: Lynn Garcia on 08-14-2021 Platelet mean volume (Bld) [Entitic vol] 7.8 fL 6.6-10.1 [facility] Platelets Auto (Bld) [#/Vol] Ordered By: Lynn Garcia on 08-14-2021 Platelets (Bld) [#/Vol] 206 10*3/uL 150-450 [facility] Protein [Mass/volume] in Uri neOrdered By: Lynn Garcia on 08-14-2021 Protein (U) [Mass/Vol] mg/dL 0-9 [facility] RBC Auto (Bld) [#/Vol]Ordere d By: Lynn Garcia on 08-14-2021 RBC (Bld) [#/Vol] 4.01 10*6/uL 3.90-5.60 [facility] Serum or plasma calcium pedro urement (mass/volume)Ordered By: Lynn Garcia on 08-14-2021 Calcium [Mass/Vol] 9.9 mg/dL 8.2-10.2 [facility] Serum or plasma chloride ira surement (moles/volume)Ordered By: Lynn Garcia on 08-14-2021 Chloride [Moles/Vol] 102 mmol/L 95-114 [facility] Serum or plasma glucose pedro urement (mass/volume)Ordered By: Lynn Garcia on 08-14-2021 Glucose [Mass/Vol] 94 mg/dL 70-100 [facility] Comment on above: ADA recommended refe rence range Random Glucose Reference Range is dependent on time and content of last meal. Glucose of more than 200 mg/dL in a nonstressed, ambulatory subject supports the diagnosis of Diabetes Mellitus. Serum or plasma intact parat hyroid hormone measurement (mass/volume)Ordered By: Lynn Garcia on 08-14-2021 Parathyrin.intact [Mass/Vol] 67.0 pg/mL [facility] Serum or plasma potassium me asurement (moles/volume)Ordered By: Lynn Garcia on 08-14-2021 Potassium [Moles/Vol] 4.4 mmol/L 3.5-5.1 [facility] Serum or plasma sodium measu rement (moles/volume)Ordered By: Lynn Garcia on 08-14-2021 Sodium [Moles/Vol] 140 mmol/L 136-146 [facility] Serum or plasma total carbon dioxide measurement (moles/volume)Ordered By: Lynn Garcia on 08-14-2021 CO2 [Moles/Vol] 24.0 mmol/L 22.0-30.0 [facility] Serum or plasma urea nitroge n measurement (mass/volume)Ordered By: Lynn Garcia on 08-14-2021 Urea nitrogen [Mass/Vol] 18 mg/dL 11-29 [facility] Urine protein/creatinine rat ioOrdered By: Lynn Garcia on 08-14-2021 Protein/Creatinine (U) [Ratio] TNP [facility] Comment on above: Test not performed WBC Auto (Bld) [#/Vol]Ordere d By: Lynn Garcia on 08-14-2021 WBC (Bld) [#/Vol] 4.9 10*3/uL 4.1-10.5 [facility] CBC with Diffon 07-16-2020 AB IMMATURE NEUT 0.03 K/UL Normal 0.0-0.1 [facility] ABS BASO 0.02 K/UL Normal 0.00-0.22 [facility] ABS EOS 0.13 K/UL Normal 0-0.45 [facility] ABS NEUTROPHILS 3.50 K/UL Normal 1.8-7.7 [facility] ABS.NEUT.CALCULATED 3.50 K/UL Normal [facility] Comment on above: Result Comment: Perf ormed at [facility] [address] [facility] [address] Basophils/100 WBC (Bld) 0.40 % Normal 0-1 [facility] DIFF TYPE AUTO DIFF Normal [facility] Eosinophils/100 WBC (Bld) 2.40 % Normal 0-3 [facility] Erythrocyte distribution width (RBC) [Ratio] 12.6 % Normal 11.7-15.0 [facility] Hematocrit (Bld) [Volume fraction] 36.2 % Low 41-50 [facility] Hemoglobin (Bld) [Mass/Vol] 12.2 g/dL Low 13.5-16.5 [facility] Lymphocytes (Bld) [#/Vol] 1.46 10*3/uL Normal 1.2-3.2 [facility] Lymphocytes/100 WBC (Bld) 26.40 % Normal 20-40 [facility] MCH (RBC) [Entitic mass] 31.0 pg Normal 26-34 [facility] MCHC 33.7 % Normal 31-37 [facility] MCV (RBC) [Entitic vol] 92.1 fL Normal 80-100 [facility] MEAN PLT VOL 9.3 CU Normal 7.0-12.6 [facility] Monocytes (Bld) [#/Vol] 0.38 10*3/uL Normal 0-0.8 [facility] Monocytes/100 WBC (Bld) 6.90 % Normal 0-8 L [facility] Neutrophils/100 WBC (Bld) 0.50 % Normal 0.0-1.0 [facility] Neutrophils/100 WBC (Bld) 63.40 % Normal 50-70 [facility] Platelets (Bld) [#/Vol] 208 10*3/uL Normal 150-450 [facility] RBC (Bld) [#/Vol] 3.93 10*6/uL Low 4.5-5.5 [facility] RDW-SD 43.1 FL Normal 37.0-54.0 [facility] WBC (Bld) [#/Vol] 5.5 10*3/uL Normal 4.5-11.0 [facility] COMPREHENSIVE METABOLIC PANE Dima 07-16-2020 Anion gap [Moles/Vol] 8 mmol/L Normal 0-19 [facility] AST [Catalytic activity/Vol] 16 U/L Normal 5-40 [facility] Chloride [Moles/Vol] 104 mmol/L Normal 97-107 [facility] Albumin [Mass/Vol] 4.3 g/dL Normal 3.5-5.0 [facility] Albumin/Globulin [Mass ratio] 1.4 {ratio} Low 1.5-3.0 [facility] ALP [Catalytic activity/Vol] 70 U/L Normal 35-125 [facility] ALT [Catalytic activity/Vol] 9 U/L Normal 5-40 [facility] Bilirubin [Mass/Vol] 0.3 mg/dL Normal 0.1-1.2 [facility] Calcium [Mass/Vol] 10.6 mg/dL High 8.5-10.4 [facility] CO2 [Moles/Vol] 28 mmol/L Normal 24-31 [place] [facility] Creatinine [Mass/Vol] 1.4 mg/dL Normal 0.4-1.6 [facility] ESTIMATED GFR 52 mL/min/1.73 m2 Normal [facility] Comment on above: Result Comment: GFR ml/min/1.73m2 Stage ----- 90 1 60-89 2 30-59 3 15-29 4 <15 5 For -Americans, multiply EGFR result by 1.210 Calculation not validated for patients under 18 years of age. Performed at [facility] [address] [facility] [address] Globulin (S) [Mass/Vol] 3.0 g/dL Normal 1.9-3.7 L [facility] Glucose [Mass/Vol] 110 mg/dL High 65-99 [facility] Potassium [Moles/Vol] 4.2 mmol/L Normal 3.4-5.1 [facility] Protein [Mass/Vol] 7.3 g/dL Normal 5.9-7.9 [facility] Sodium [Moles/Vol] 140 mmol/L Normal 133-145 [facility] Urea nitrogen [Mass/Vol] 30 mg/dL High 8-25 [facility] Urea nitrogen/Creatinine [Mass ratio] 21.4 mg/mg High 8-21 [facility] EKGon 07-16-2020 Electrocardiogram EKG Ventricular Rate : 82 BPM Atrial Rate : 82 BPM P-R Interval : 170 ms QRS Duration : 100 ms Q-T Interval : 360 ms QTC Calculation(Bazett) : 420 ms Calculated P Mcdavid : -4 degrees Calculated R Mcdavid : -10 degrees Calculated T Mcdavid : 57 degrees Diagnosis:Sinus rhythm with occasional Premature ventricular complexes Otherwise normal ECG No previous ECGs available Confirmed by SOPHIA CANCINO ([id number]) on 07/18/2020 11:06:00 PM [facility] SARS-CoV-2,INFLUENZA A/B NUC LEIC ACID TESTon 07-16-2020 EUA DISCLAIMER Normal [facility] Comment on above: Result Comment: This test [...] is terminated or revoked sooner. Performed at [place] [id number] FLU A by PCR Negative [facility] FLU B by PCR Negative [facility] SARS-CoV-2 (COVID-19) RNA NAMRATA+probe Ql (Unsp spec) Negative Normal [facility] UA-REFLEX TO CULTUREon 07-16 RBC NONE SEEN Normal 0-3 [facility] Urinalysis dipstick W Reflex Microscopic panel (U) MANUAL MICROSCOPIC URINES Normal [facility] WBC NONE SEEN Normal 0-3 [facility] Bacteria identified Cx Nom (U) Normal [facility] Comment on above: Result Comment: CULT URE NOT INDICATED Performed at [place] [id number] BILI Negative Normal [facility] Clarity (U) CLEAR Normal [facility] Color (U) YELLOW Normal [facility] GLUC Negative Normal NEG [facility] Hemoglobin Ql (U) Negative Normal NEG [facility] KET Negative Normal NEG [facility] LEUK Negative Normal NEG [facility] NIT Negative Normal NEG [facility] pH (U) 6.5 [pH] Normal 4.6-8.0 [facility] PROT Negative Normal NEG [facility] SP GRAV,URINE 1.015 Normal 1.005-1.030 [facility] URO 0.2 MG/DL Normal 0-1.0 [facility] CBC (INCLUDES DIFF/PLT)on Basophils (Bld) [#/Vol] 0.031 10*3/uL Normal 0-200 [facility] Comment on above: Performed By: #### 4 57, 6399 #### [facility] of [place] [address] Creative Lead: Catrachito Mata MD Basophils/100 WBC (Bld) 0.6 % Normal [facility] Comment on above: Performed By: #### 4 57, 6399 #### [facility] of [place] [address] Creative Lead: Catrachito Mata MD Eosinophils (Bld) [#/Vol] 0.138 10*3/uL Normal 15-500 [facility] Comment on above: Performed By: #### 4 57, 6399 #### [facility] of [place] [address] Creative Lead: Catrachito Mata MD Eosinophils/100 WBC (Bld) 2.7 % Normal [facility] Comment on above: Performed By: #### 4 57, 6399 #### [facility] [place] [address] Creative Lead: Catrachito Mata MD Erythrocyte distribution width (RBC) [Ratio] 13.6 % Normal 11.0-15.0 [facility] Comment on above: Performed By: #### 4 57, 6399 #### [facility] of [place] [address] Creative Lead: Catrachito Mata MD Hematocrit (Bld) [Volume fraction] 33.9 % Low 38.5-50.0 [facility] Comment on above: Performed By: #### 4 57, 6399 #### [facility] [place] [address] Creative Lead: Catrachito Mata MD Hemoglobin (Bld) [Mass/Vol] 11.8 g/dL Low 13.2-17.1 [facility] Comment on above: Performed By: #### 4 57, 6399 #### [facility] [place] [address] Creative Lead: Catrachito Mata MD Lymphocytes (Bld) [#/Vol] 1.239 10*3/uL Normal 850-3900 [facility] Comment on above: Performed By: #### 4 57, 6399 #### [facility] [place] [address] Creative Lead: Catrachito Mata MD Lymphocytes/100 WBC (Bld) 24.3 % Normal [facility] Comment on above: Performed By: #### 4 57, 6399 #### [facility] [place] [address] Creative Lead: Catrachito Mata MD MCH (RBC) [Entitic mass] 31.8 pg Normal 27.0-33.0 [facility] Comment on above: Performed By: #### 4 57, 6399 #### [facility] [place] [address] Creative Lead: Catrachito Mata MD MCHC (RBC) [Mass/Vol] 34.8 g/dL Normal 32.0-36.[address] [facility] Comment on above: Performed By: #### 4 57, 6399 #### [facility] [place] [address] Creative Lead: Catrachito Mata MD MCV (RBC) [Entitic vol] 91.4 fL Normal 80.0-100.0 [facility] Comment on above: Performed By: #### 4 57, 6399 #### [facility] [place] [address] Creative Lead: Catrachito Mata MD Monocytes (Bld) [#/Vol] 0.469 10*3/uL Normal 200-950 [facility] Comment on above: Performed By: #### 4 57, 6399 #### [facility] of [address] [place] [address] Creative Lead: Catrachito Mata MD Monocytes/100 WBC (Bld) 9.2 % Normal [facility] Comment on above: Performed By: #### 4 57, 6399 #### [facility] [place] [address] Creative Lead: Catrachito Mata MD Neutrophils (Bld) [#/Vol] 3.223 10*3/uL Normal 2344-9919 [facility] Comment on above: Performed By: #### 4 57, 6399 #### [facility] [place] [address] Creative Lead: Catrachito Mata MD Neutrophils/100 WBC (Bld) 63.2 % Normal [facility] Comment on above: Performed By: #### 4 57, 6399 #### [facility] [place] [address] Creative Lead: Catrachito Mata MD Platelet mean volume (Bld) [Entitic vol] 10.0 fL Normal 7.5-12.5 [facility] Comment on above: Performed By: #### 4 57, 6399 #### [facility] [place] [address] Creative Lead: Catrachito Mata MD Platelets (Bld) [#/Vol] 211 10*3/uL Normal 140-400 [facility] Comment on above: Performed By: #### 4 57, 6399 #### [facility] [place] [address] Creative Lead: Catrachito Mata MD RBC (Bld) [#/Vol] 3.71 10*6/uL Low 4.20-5.80 [facility] Comment on above: Performed By: #### 4 57, 6399 #### [facility] [place] [address] Creative Lead: Catrachito Mata MD WBC (Bld) [#/Vol] 5.1 10*3/uL Normal 3.8-10.8 [facility] Comment on above: Performed By: #### 4 57, 6399 #### [facility] of [address], [address] [place] [address] Creative Lead: Catrachito Mata MD FERRITINon 05-31-2020 Ferritin [Mass/Vol] 247 ng/mL Normal 24-380 [facility] Comment on above: Performed By: #### 4 57, 6399 #### [facility] of [address], [address] [place] [address] Creative Lead: Catrachito Mata MD TRANSFERRINon 05-31-2020 Transferrin [Mass/Vol] 229 mg/dL Normal 188-341 [facility] Comment on above: Performed By: #### 4 57, 6399 #### [facility] of [address], [address] [place] [address] Creative Lead: Catrachito Mata MD COVID-19 Positive/Negativeon 03-16-2020 COVID-19 Positive/Negative Negative Negative [facility] Comment on above: Testing for SARS-CoV -2 by RT-PCRThis test was developed and its performance characteristics determined by [employer] ([employer]) and validated at the [facility]. This test has not been FDA [...] Otheron 03-16-2020 Coronavirus 2019 PCR Interp N/A [facility] Automated basophil %on 03-12 Basophils/100 WBC (Bld) 0.7 % F [facility] Automated basophil counton 0 03-12-2020 Basophils (Bld) [#/Vol] 0.0 10*3/uL 0.0-0.2 [facility] Automated blood lymphocyte c ount (number/volume)on 03-12-2020 Lymphocytes (Bld) [#/Vol] 1.1 10*3/uL 1.00-4.8 [facility] Automated blood lymphocyte c ount as percentage of total leukocyteson 03-12-2020 Lymphocytes/100 WBC (Bld) 25.0 % [facility] Automated blood monocyte cou nton 03-12-2020 Monocytes (Bld) [#/Vol] 0.5 10*3/uL 0.0-0.8 [facility] Automated blood platelet cou nt (count/volume)on 03-12-2020 Platelets (Bld) [#/Vol] 196 10*3/uL 150-450 [facility] Automated blood platelet ira n volume measurementon 03-12-2020 Platelet mean volume (Bld) [Entitic vol] 7.9 fL 6.6-10.1 [facility] Automated eosinophil %on Eosinophils/100 WBC (Bld) 3.3 % [facility] Automated eosinophil counton 03-12-2020 Eosinophils (Bld) [#/Vol] 0.1 10*3/uL 0.0-0.45 [facility] Automated erythrocyte distri bution width ratioon 03-12-2020 Erythrocyte distribution width (RBC) [Ratio] 13.8 % 12.0-14.8 [facility] Automated erythrocyte mean c orpuscular hemoglobin (mass per erythrocyte)on 03-12-2020 MCH (RBC) [Entitic mass] 31.1 pg 27.5-35.2 [facility] Automated erythrocyte mean c orpuscular hemoglobin concentration measurement (mass/volon 03-12-2020 MCHC (RBC) [Mass/Vol] 34.1 g/dL 32.5-35.6 [facility] Automated erythrocyte mean c orpuscular volumeon 03-12-2020 MCV (RBC) [Entitic vol] 91.3 fL 83.5-101 F [facility] Automated monocyte %on 03-12 Monocytes/100 WBC (Bld) 10.8 % F [facility] Automated neutrophil %on Neutrophils/100 WBC (Bld) 60.2 % [facility] Blood erythrocytes automated count (number/volume)on 03-12-2020 RBC (Bld) [#/Vol] 3.98 10*6/uL 3.90-5.60 [facility] Blood hemoglobin measurement (mass/volume)on 03-12-2020 Hemoglobin (Bld) [Mass/Vol] 12.4 g/dL 13.0-17.0 [facility] Blood leukocytes automated c ount (number/volume)on 03-12-2020 WBC (Bld) [#/Vol] 4.5 10*3/uL 4.5-11.0 [facility] Blood neutrophil count by au tomated method (number/volume)on 03-12-2020 Neutrophils (Bld) [#/Vol] 2.7 10*3/uL 1.8-7.7 [facility] Estimated glomerular filtrat ion rate (GFR) non- Americanon 03-12-2020 GFR/1.73 sq M predicted among non-blacks MDRD (S/P/Bld) [Vol rate/Area] 42 mL/min/{1.73_m2} [facility] Hematocrit [Volume Fraction] of Blood by Automated counton 03-12-2020 Hematocrit (Bld) [Volume fraction] 36.3 % 38.8-50.0 [facility] Otheron 03-12-2020 GFR/1.73 sq M.predicted MDRD (S/P/Bld) [Vol rate/Area] 51 mL/min/{1.73_m2} [facility] Comment on above: GFR estimated refere nce range: According to KDOQI guidelines, <60 ml/min/1.73m2 is sufficient to diagnose a patient with chronic kidney disease. Nucleated RBC/100 WBC (Bld) [Ratio] 0.2 % 0-0.5 [facility] Creatinine Clearance (Chem N/A [facility] Serum or plasma calcium pedro urement (mass/volume)on 03-12-2020 Calcium [Mass/Vol] 10.1 mg/dL 8.2-10.2 [facility] Serum or plasma chloride ira surement (moles/volume)on 03-12-2020 Chloride [Moles/Vol] 101 mmol/L 95-114 [facility] Serum or plasma creatinine m easurement with calculation of estimated glomerular filtron 03-12-2020 Creatinine [Mass/Vol] 1.59 mg/dL 0.64-1.27 [facility] Serum or plasma glucose pedro urement (mass/volume)on 03-12-2020 Glucose [Mass/Vol] 93 mg/dL 70-100 [facility] Comment on above: ADA recommended refe rence rangeRandom Glucose Reference Range is dependent on time and content of last meal. Glucose of more than 200 mg/dL in a nonstressed, ambulatory subject supports the diagnosis of Diabetes Mellitus. Serum or plasma potassium me asurement (moles/volume)on 03-12-2020 Potassium [Moles/Vol] 4.1 mmol/L 3.5-5.1 [facility] Serum or plasma sodium measu rement (moles/volume)on 03-12-2020 Sodium [Moles/Vol] 137 mmol/L 136-146 [facility] Serum or plasma total carbon dioxide measurement (moles/volume)on 03-12-2020 CO2 [Moles/Vol] 24.3 mmol/L 22.0-30.0 [facility] Serum or plasma urea nitroge n measurement (mass/volume)on 03-12-2020 Urea nitrogen [Mass/Vol] 26 mg/dL 9-23 [facility] MAGNESIUMon 02-09-2020 Magnesium [Mass/Vol] 2.0 mg/dL Normal 1.5-2.5 [facility] Comment on above: Performed By: #### 7 15, 985, 836 #### [facility], [address] [place] [id number] Creative Lead: Catrachito Mata MD PHOSPHATE ( PHOSPHORUS)on 02-09-2020 Phosphate [Mass/Vol] 2.8 mg/dL Normal 2.1-4.3 [facility] Comment on above: Performed By: #### 7 18, 441, 905 #### [facility]-[address], [address] [place] [address] Creative Lead: Catrachito Mata MD URIC ACIDon 02-09-2020 Urate [Mass/Vol] 7.2 mg/dL Normal 4.0-8.0 [facility] Comment on above: Result Comment: Ther apeutic target for gout patients: <6.0 mg/dL NO COLLECTION DATE RECEIVED. WE HAVE USED THE DATE THE SPECIMEN WAS RECEIVED BY THIS LABORATORY THE COLLECTION DATE. IF THIS IS INCORRECT, PLEASE CONTACT CLIENT SERVICES. PHONE NUMBER: [phone] Performed By: #### 7 18, 156, 754 #### [facility]-[address], [address] [place] [address] Creative Lead: Catrachito Mata MD URIC ACIDon 08-05-2019 Urate [Mass/Vol] 7.2 mg/dL Normal 4.0-8.0 [facility] Comment on above: Result Comment: Ther apeutic target for gout patients: <6.0 mg/dL NO COLLECTION DATE RECEIVED. WE HAVE USED THE DATE THE SPECIMEN WAS RECEIVED BY THIS LABORATORY THE COLLECTION DATE. IF THIS IS INCORRECT, PLEASE CONTACT CLIENT SERVICES. PHONE NUMBER: [phone] Performed By: #### 9 05 #### [facility]-[address], [address] [place] [address] Creative Lead: Catrachito Mata MD Vital Signs Date Time Vital Sign Value Performing Clinician Facility 08-19-2023 14:040 Body height 182.25 cm LINDA Patino Work Phone: [facility] 08-19-2023 14:040 Body mass index (BMI) [Ratio] 28.3 kg/m2 LINDA Patino Work Phone: [facility] 08-19-2023 [id number] Body temperature 97.5 [degF] LINDA Patino Work Phone: [facility] 08-19-2023 14:07-0400 Body weight 93.89 kg CELL BIOLOGIST Roberta Cherry Work Phone: [facility] 08-19-2023 14:07-0400 Diastolic blood pressure 76 mm[Hg] CELL BIOLOGIST Roberta Cherry Work Phone: [facility] 08-19-2023 14:07-0400 Heart rate 96 /min CELL BIOLOGIST Roberta Cherry Work Phone: [facility] 08-19-2023 14:07-0400 Respiratory rate 16 /min CELL BIOLOGIST Roberta Cherry Work Phone: [facility] 08-19-2023 14:07-0400 SaO2% (BldA) [Mass fraction] 98 % CELL BIOLOGIST Roberta Cherry Work Phone: [facility] 08-19-2023 14:07-0400 Systolic blood pressure 124 mm[Hg] CELL BIOLOGIST Roberta Cherry Work Phone: [facility] 07-21-2023 10:35-0400 Diastolic blood pressure 71 mm[Hg] CELL BIOLOGIST Roberta Cherry Work Phone: [facility] 07-21-2023 10:35-0400 Heart rate 84 /min CELL BIOLOGIST Roberta Cherry Work Phone: [facility] 07-21-2023 10:35-0400 Respiratory rate 16 /min CELL BIOLOGIST Roberta Cherry Work Phone: [facility] 07-21-2023 10:35-0400 SaO2% (BldA) [Mass fraction] 97 % CELL BIOLOGIST Roberta Cherry Work Phone: [facility] 07-21-2023 10:35-0400 Systolic blood pressure 126 mm[Hg] CELL BIOLOGIST Roberta Cherry Work Phone: [facility] 07-21-2023 10:02-0400 Inhaled oxygen flow rate 3 L/min CELL BIOLOGIST Roberta Cherry Work Phone: [facility] 07-21-2023 09:20-0400 Body height 182.88 cm CELL BIOLOGISTAbel Patino Work Phone: [facility] 07-21-2023 09:20-0400 Body weight 93.44 kg LINDA Patino Work Phone: [facility] 06-25-2023 10:14-0400 Body height 185.42 cm CELL BIOLOGISTAbel Patino Work Phone: [facility] 06-25-2023 10:14-0400 Body mass index (BMI) [Ratio] 28 kg/m2 CELL BIOLOGISTAbel Patino Work Phone: [facility] 06-25-2023 10:14-0400 Body weight 96.61 kg LINDA Patino Work Phone: [facility] 02-18-2023 14:00-0500 Body height 185.42 cm Cristofer Walliss Other [facility] [employer] Other 02-18-2023 14:00-0500 Body mass index (BMI) [Ratio] 27.86 kg/m2 Cristofer Walliss Other [facility] [employer] Other 02-18-2023 14:00-0500 Body temperature 98.8 [degF] Cristofer Walliss Other [employer] Other 02-18-2023 14:00-0500 Body weight 95.8 kg Azarianna Walliss Other [employer] Other 02-18-2023 14:00-0500 Diastolic blood pressure 81 mm[Hg] Azarianna Vitehous Other [facility] [employer] Other 02-18-2023 14:00-0500 Respiratory rate 18 /min Aziz Bakhous Other [employer] Other 02-18-2023 14:00-0500 SaO2% (BldA) [Mass fraction] 97 % Aziz Bakhous Other [employer] Other 02-18-2023 14:00-0500 Systolic blood pressure 144 mm[Hg] Aziz Bakhous Other [employer] Other 08-26-2022 15:00-0400 Body height 185.42 cm Azarianna Bakhous Other [employer] Other 08-26-2022 15:00-0400 Body mass index (BMI) [Ratio] 26.91 kg/m2 Azarianna Bakhous Other [employer] Other 08-26-2022 15:00-0400 Body temperature 97.3 [degF] Aziz Bakhous Other [employer] Other 08-26-2022 15:00-0400 Body weight 92.53 kg Azarianna Bakhous Other [employer] Other 08-26-2022 15:00-0400 Diastolic blood pressure 73 mm[Hg] Aziz Bakhous Other [employer] Other 08-26-2022 15:00-0400 Respiratory rate 18 /min Aziz Bakhous Other [employer] Other 08-26-2022 15:00-0400 SaO2% (BldA) [Mass fraction] 98 % Aziz Bakhous Other [employer] Other 08-26-2022 15:00-0400 Systolic blood pressure 119 mm[Hg] Azarianna Walliss Other [employer] Other 06-10-2022 14:40-0400 Body height 185.42 cm Willian Nuñez Other [employer] Other 06-10-2022 14:40-0400 Body mass index (BMI) [Ratio] 27.7 kg/m2 Willian Nuñez Other [employer] Other 06-10-2022 14:40-0400 Body weight 95.26 kg Willian Nuñez Other [employer] Other 06-10-2022 14:40-0400 Diastolic blood pressure 62 mm[Hg] Willian Nuñez Other [employer] Other 06-10-2022 14:40-0400 Systolic blood pressure 170 mm[Hg] Willian Nuñez Other [employer] Other 02-18-2022 17:20-0500 Body height 185.42 cm Cristofer Walliss Other [employer] Other 02-18-2022 17:20-0500 Body mass index (BMI) [Ratio] 27.73 kg/m2 Azarianna Juvenciohous Other [employer] Other 02-18-2022 17:20-0500 Body temperature 96.9 [degF] Bamarianna Juvenciohous Other [employer] Other 02-18-2022 17:20-0500 Body weight 95.35 kg Bamarianna Juvenciohous Other [employer] Other 02-18-2022 17:20-0500 Diastolic blood pressure 89 mm[Hg] Aziz Bakanastasias Other [employer] Other 02-18-2022 17:20-0500 Respiratory rate 18 /min Azarianna Bakanastasias Other [employer] Other 02-18-2022 17:20-0500 SaO2% (BldA) [Mass fraction] 97 % Azarianna Bakanastasias Other [employer] Other 02-18-2022 17:20-0500 Systolic blood pressure 166 mm[Hg] Aziz Kadis Other [employer] Other 10-29-2021 12:20-0400 Body height 185.42 cm Willian Nuñez Other [employer] Other 10-29-2021 12:20-0400 Body mass index (BMI) [Ratio] 27.7 kg/m2 Willian Nuñez Other [employer] Other 10-29-2021 12:20-0400 Body weight 95.26 kg Willian Nuñez Other [employer] Other 08-21-2021 16:00-0400 Body height 185.42 cm Cristofer Walliss Other [employer] Other 08-21-2021 16:00-0400 Body mass index (BMI) [Ratio] 27.73 kg/m2 Cristofer Walliss Other [employer] Other 08-21-2021 16:00-0400 Body temperature 96.5 [degF] Azarianna Walliss Other [employer] Other 08-21-2021 16:00-0400 Body weight 95.35 kg Cristofer Grey Other [employer] Other 08-21-2021 16:00-0400 Diastolic blood pressure 71 mm[Hg] Cristofer Grey Other [employer] Other 08-21-2021 16:00-0400 Respiratory rate 18 /min Cristofer Grey Other [employer] Other 08-21-2021 16:00-0400 SaO2% (BldA) [Mass fraction] 96 % Cristofer Grey Other [employer] Other 08-21-2021 16:00-0400 Systolic blood pressure 125 mm[Hg] Cristofer Grey Other [employer] Other 07-30-2021 12:00-0400 Body height 185.42 cm Willian Nuñez Other [employer] Other 07-30-2021 12:00-0400 Body mass index (BMI) [Ratio] 28.76 kg/m2 Willian Nuñez Other [employer] Other 07-30-2021 12:00-0400 Body weight 98.88 kg Willian Nuñez Other [employer] Other 07-15-2021 11:00-0400 Body height 185.42 cm Willian Nuñez Other [employer] Other 07-15-2021 11:00-0400 Body mass index (BMI) [Ratio] 27.84 kg/m2 Willian Nuñez Other [employer] Other 07-15-2021 11:00-0400 Body weight 95.71 kg Willian Nuñez Other [employer] Other 04-25-2021 14:00-0500 Body height 185.42 cm Willian Nuñez Other [employer] Other 04-25-2021 14:00-0500 Body mass index (BMI) [Ratio] 27.84 kg/m2 Willian Nuñez Other [employer] Other 04-25-2021 14:00-0500 Body weight 95.71 kg Willian Nuñez Other [employer] Other 03-14-2021 15:40-0500 Body height 185.42 cm Willian Nuñez Other [employer] Other 03-14-2021 15:40-0500 Body mass index (BMI) [Ratio] 27.84 kg/m2 Willian Nuñez Other [employer] Other 03-14-2021 15:40-0500 Body weight 95.71 kg Willian Nuñez Other [employer] Other 12-13-2020 15:40-0400 Body height 185.42 cm Willian Nuñez Other [employer] Other 12-13-2020 15:40-0400 Body mass index (BMI) [Ratio] 28.36 kg/m2 Willian Nñuez Other [employer] Other 12-13-2020 15:40-0400 Body weight 97.52 kg Willian Nuñez Other [employer] Other 12-13-2020 15:40-0400 Diastolic blood pressure 75 mm[Hg] Willian Nuñez Other [facility] [employer] Other 12-13-2020 15:40-0400 Systolic blood pressure 130 mm[Hg] Willian Nuñez Other [facility] [employer] Other Encounters Encounter Date Encounter Type Care Provider Facility Start: 10-27-2023 End: 10-27-2023 ambulatory [facility] Start: 10-22-2023 End: 10-22-2023 ambulatory [facility] Work Phone: Start: 10-22-2023 End: 10-22-2023 Patient encounter procedure [facility] Work Phone: Start: 10-14-2023 End: 10-14-2023 ambulatory LINDA Patino Work Phone: [facility] Work Phone: Start: 10-14-2023 End: 10-14-2023 Patient encounter procedure LINDA Patino Work Phone: [facility] Work Phone: Start: 10-14-2023 Non-patient / Non-visit [facility] Work Phone: Start: 10-07-2023 End: 10-07-[facility]23 [facility] Start: 09-24-2023 End: 09-24-2023 ambulatory LINDA Patino Work Phone: [facility] Work Phone: Start: 09-24-2023 End: 09-24-2023 Patient encounter procedure LINDA Patino Work Phone: [facility] Work Phone: Start: 09-18-2023 End: 09-18-2023 ambulatory CELL BIOLOGISTAbel SaucedoRoberta A Cherry Work Phone: [facility] Work Phone: Start: 09-18-2023 End: 09-18-2023 Patient encounter procedure LINDA Granados Cherry Work Phone: [facility] Work Phone: Start: 08-31-2023 End: 08-31-2023 [facility] Start: 08-26-2023 Non-patient / Non-visit CELL BIOLOGISTAbel Patino Work Phone: [facility] Work Phone: Start: 08-19-2023 End: 08-19-2023 ambulatory CELL BIOLOGISTAbel Granados aMdan Cherry Work Phone: [facility] Work Phone: Start: 08-19-2023 End: 08-19-2023 Patient encounter procedure CELL BIOLOGIST Robertaganesh Patino Work Phone: [facility] Work Phone: Start: 08-18-2023 End: 08-18-2023 ambulatory CELL BIOLOGIST Roberta Hager Cherry Work Phone: [facility] Work Phone: Start: 08-18-2023 End: 08-18-2023 Patient encounter procedure LINDA Granados Cherry Work Phone: [facility] Work Phone: Start: 08-17-2023 End: 08-17-2023 ambulatory [facility] Start: 07-21-2023 End: 07-21-2023 ambulatory [facility] Facility:[facility] Start: 07-21-2023 Non-patient / Non-visit CELL BIOLOGIST Negro Patino Work Phone: [facility] Work Phone: Start: 07-21-2023 End: 07-21-2023 Admission to [facility] day [facility] LINDA Patino Work Phone: [facility] Work Phone: Start: 07-16-2023 End: 07-16-2023 ambulatory Angel Solomon Facility:[facility] Start: 07-16-2023 End: 07-16-2023 ambulatory CELL BIOLOGISTAbel Patino [facility] Phone: [facility] [facility] Work Phone: Start: 07-16-2023 End: 07-16-2023 Patient encounter procedure LINDA Patino Work Phone: [facility] Work Phone: Start: 06-25-2023 End: 06-25-2023 ambulatory Willian Nuñez Facility:[facility] Start: 06-25-2023 End: 06-25-2023 ambulatory CELL BIOLOGISTAbel Patino Work Phone: [facility] Work Phone: Start: 06-25-2023 End: 06-25-2023 Patient encounter procedure LINDA Patino Work Phone: [facility] Work Phone: Start: 05-29-2023 Refill Rajani Thorne CNA [facility] Comment on above: Essential hypertensi on, benign Start: 05-14-2023 Telephone encounter Rajani Thorne CNA [facility] Comment on above: Care Management Start: 04-06-2023 Refill Roberta blount CELL BIOLOGIST-CLOUD SERVICES ARCHITECT Work Phone: [facility] Start: 03-12-2023 Orders Only Roberta blount CELL BIOLOGIST-CLOUD SERVICES ARCHITECT Work Phone: [facility] Comment on above: Dermatitis Start: 02-25-2023 End: 02-25-2023 ambulatory ROBERTA PATINO [facility] Start: 02-18-2023 End: 02-18-2023 ambulatory Aziz Bakhous Other [employer] Other Start: 02-18-2023 Office outpatient vi sit 25 minutes Aziz Bakhous [facility] Start: 08-26-2022 End: 08-26-2022 ambulatory Aziz Bakhous Other [employer] Other Start: 08-26-2022 Office outpatient vi sit 15 minutes Aziz Bakhous [facility] Start: 06-10-2022 End: 06-10-2022 ambulatory Willian Nuñez Other [facility] Other Start: 06-10-2022 Office outpatient vi sit 15 minutes Willian Nuñez [facility] Neurosurgery Start: 02-18-2022 End: 02-18-2022 ambulatory Aziz Bakhous Other [employer] Other Start: 02-18-2022 Office outpatient vi sit 15 minutes Aziz Bakhous [facility] Start: 02-04-2022 End: 02-04-2022 ambulatory CELL BIOLOGISTAbel Patino Work Phone: [facility] Work Phone: Start: 02-04-2022 End: 02-04-2022 Patient encounter procedure LINDA Patino Work Phone: [facility] Start: 10-29-2021 End: 10-29-2021 ambulatory Willian Nuñez Other [employer] Other Start: 10-29-2021 Office outpatient vi sit 15 minutes Willian Nuñez [facility] Neurosurgery Start: 10-29-2021 End: 10-29-2021 Patient encounter procedure CELL BIOLOGIST Roberta Cherry Work Phone: [facility] [place] Start: 09-24-2021 Encounter for genera l adult medical examination without abnormal findings ROBERTA Madan CHERRY [facility] Start: 09-24-2021 Patient encounter procedure Roberta Cherry CELL BIOLOGIST-CLOUD SERVICES ARCHITECT Work Phone: [facility] Start: 08-21-2021 End: 08-21-2021 ambulatory Wiarianna Wallisaleks Other [employer] Other Start: 08-21-2021 Office outpatient vi sit 15 minutes Azarianna Walliss [facility] Start: 08-14-2021 End: 08-14-2021 Patient encounter procedure CELL BIOLOGIST Roberta Patino Work Phone: [facility] [place] Start: 07-30-2021 End: 07-30-2021 ambulatory Willian Nuñez Other [employer] Other Start: 07-30-2021 Postop follow up vis it related to original px Willian Nuñez [facility] Start: 07-15-2021 (Post-Op) Post-Op Willian Nuñez [facility] Start: 07-15-2021 End: 07-15-2021 ambulatory Willian Nuñez Other [employer] Other Start: 07-08-2021 End: 07-08-2021 ambulatory Willian Nuñez Other [facility] Other Start: 07-08-2021 Telephone encounter Willian Nuñez [facility] Start: 07-01-2021 Admission to same da y surgery center Willian Nuñez [facility] Start: 07-01-2021 End: 07-01-2021 ambulatory Willian Nuñez Other [employer] Other Start: 06-28-2021 End: 06-28-2021 ambulatory Lynn Garcia Other [employer] Other Start: 06-28-2021 Telephone encounter Lynn Garcia [facility] Nephrology Start: 04-25-2021 End: 04-25-2021 ambulatory Willian Juvenal Other [employer] Other Start: 04-25-2021 Office outpatient vi sit 15 minutes Willian Nuñez [facility] Neurosurgery Start: 04-10-2021 End: 04-10-2021 ambulatory Willian Nuñez Other [employer] Other Start: 04-10-2021 Telephone encounter Willian Nuñez [facility] Start: 03-14-2021 End: 03-14-2021 ambulatory Willian Nuñez Other [employer] Other Start: 03-14-2021 Office outpatient vi sit 15 minutes Willian Nuñez [facility] Neurosurgery Start: 02-26-2021 End: 02-26-2021 ambulatory Lynn Garcia Other [employer] Other Start: 02-26-2021 Telephone encounter Lynn Garcia [facility] Start: 12-13-2020 Office outpatient vi sit 15 minutes Willian Nuñez [facility] Neurosurgery Start: 03-16-2020 End: 03-16-2020 Patient encounter procedure Jared Petty -Pre-Surgical Testing Start: 03-12-2020 End: 03-12-2020 Patient encounter procedure Jaerd Anasagrarios -Pre-Surgical Testing Start: 02-14-2020 End: 02-14-2020 Patient encounter procedure Jared Petty [facility] [place] Procedures Date Procedure Procedure Detail Performing Clinician Start: 07-21-2023 Injection of local anesthetic into sacroiliac joint LINDA Patino Work Phone: Start: 07-16-2023 X-ray of lumbar spin e, four views LINDA Patino Work Phone: Start: 06-25-2023 X-ray of cervical spine CELL BIOLOGIST Roberta Cherry Work Phone: Start: 09-26-2022 Adult depression scr eening assessment Roberta Cherry CELL BIOLOGIST-CLOUD SERVICES ARCHITECT Work Phone: Start: 02-04-2022 X-ray of cervical spine CELL BIOLOGIST Roberta Cherry Work Phone: Start: 10-29-2021 X-ray of cervical spine LINDA Granados Cherry Work Phone: Start: 02-14-2020 Radiography of cervi lan spine Jared Petty Plan of Treatment Date Care Activity Detail Author Start: 09-29-2032 DTaP,Tdap and Td Vaccines (2 - Td or Tdap) DTaP,Tdap and Td Vaccines (2 - Td or Tdap) [facility] Start: 02-26-2024 Adult BMI Screening Adult BMI Screening [facility] Start: 02-26-2024 Tobacco Screening Tobacco Screening [facility] Start: 11-18-2023 Fall Risk Screening Fall Risk Screening [facility] Start: 10-07-2023 End: 10-07-2023 Patient encounter procedure 10/07/2023 10:40 AM EDT Office Visit [facility] [address] [place] [phone] Roberta Patino APRN-CLOUD SERVICES ARCHITECT [address] [place] [address] [facility] Start: 09-30-2023 Medicare Annual Wellness Visit Medicare Annual Wellness Visit [facility] Start: 09-27-2023 Depression Screening Depression Screening [facility] Start: 08-31-2023 End: 08-31-2023 Patient encounter procedure 08/31/2023 2:40 PM EDT Office Visit [facility] [address] [place] [phone] Roberta Patino APRN-CLOUD SERVICES ARCHITECT [address], [place], [place] [id number] [facility] Start: 07-21-2023 [facility] Start: 07-16-2023 X-ray of lumbar spine, four views XR lumbar spine AP/LAT/FLX/EXT [facility] Start: 06-25-2023 X-ray of cervical spine XR cerv spine AP/LAT/FLX/EXT [facility] Start: 11-24-2022 Administration of varicella zoster vaccine Zoster (Shingles) Vaccine (3 of 3) [facility] Start: 11-07-2022 Influenza vaccination Influenza Vaccine [facility] Start: 01-19-1958 Adult BMI Follow Up Plan Adult BMI Follow Up Plan [facility] Patient Education [facility] Work Phone: Patient referral [facility] Work Phone: Renal function 2000 panel - Serum or Plasma [facility] Immunizations Immunization Date Immunization Notes Care Provider Fa cility 12-12-2022 Covid-19,mrna, Lnp-s , Pf, 50mcg/0.5ml 12+ Roberta Patino CELL BIOLOGIST-CLOUD SERVICES ARCHITECT Work Phone: [facility] 09-29-2022 tetanus toxoid, redu raji diphtheria toxoid, and acellular pertussis vaccine, adsorbed Roberta Cherry CELL BIOLOGIST-CLOUD SERVICES ARCHITECT Work Phone: [facility] 09-29-2022 zoster vaccine recombinant Roberta Patino CELL BIOLOGIST-CLOUD SERVICES ARCHITECT Work Phone: [facility] 09-29-2022 zoster vaccine, unspecified formulation Roberta Patino CELL BIOLOGIST-CLOUD SERVICES ARCHITECT Work Phone: [facility] 12-16-2021 influenza virus vacc ine, unspecified formulation Roberta Patino CELL BIOLOGIST-CLOUD SERVICES ARCHITECT Work Phone: [facility] 01-16-2021 COVID-19 mRNA-1273 (Moderna) CELL BIOLOGIST Roberta Patino Work Phone: [facility] 12-08-2020 Influenza Vaccine, Quadrivalent, Adjuvanted Roberta Cherry CELL BIOLOGIST-CLOUD SERVICES ARCHITECT Work Phone: [facility] 05-07-2020 COVID-19, mRNA, LNP- S, PF, 100mcg/0.5mL Dose Roberta Cherry CELL BIOLOGIST-CLOUD SERVICES ARCHITECT Work Phone: [facility] 05-04-2020 COVID-19 mRNA-1273 (Moderna) CELL BIOLOGIST Roberta Cherry Work Phone: [facility] 04-07-2020 COVID-19, mRNA, LNP- S, PF, 100mcg/0.5mL Dose Roberta Cherry CELL BIOLOGIST-CLOUD SERVICES ARCHITECT Work Phone: [facility] 04-06-2020 COVID-19 mRNA-1273 (Moderna) CELL BIOLOGIST Roberta Cherry Work Phone: [facility] 02-18-2020 influenza, injectabl e, quadrivalent, preservative free Roberta Cherry CELL BIOLOGIST-CLOUD SERVICES ARCHITECT Work Phone: [facility] 01-25-2019 Influenza, injectabl e, Madin [place] Canine Kidney, quadrivalent with preservative Roberta Cherry CELL BIOLOGIST-CLOUD SERVICES ARCHITECT Work Phone: [facility] 01-25-2019 pneumococcal polysaccharide vaccine, 23 valent Roberta Cherry CELL BIOLOGIST-CLOUD SERVICES ARCHITECT Work Phone: [facility] 01-13-2018 pneumococcal conjuga te vaccine, 13 valent Roberta Cherry CELL BIOLOGIST-CLOUD SERVICES ARCHITECT Work Phone: [facility] 01-08-2018 influenza, injectabl e, quadrivalent, contains preservative Roberta Cherry CELL BIOLOGIST-CLOUD SERVICES ARCHITECT Work Phone: [facility] 03-09-2014 zoster vaccine, live Roberta Cherry CELL BIOLOGIST-CLOUD SERVICES ARCHITECT Work Phone: [facility] Payers Date Payer Category Payer Unknown FRANCISCO MENDEZ [id number] 2016-Present [phone] [address] [place] [address] [id number] 2016 Unknown [id number] 2005 Medicare MEDICARE MEDICAR E PART A & B [id number] 2005-Present [phone] [address] [place] [address] [id number] 2005 Medicare [id number] 1940 Unknown [id number] 86 1940 Unknown [id number] 86 1940 Unknown [id number] 86 1940 Unknown [id number] 86 1940 Unknown [id number] 86 Medicare [id number] Self-pay Self Pay [id number] Social History Date Type Detail Facility Start: 03-12-2020 End: 08-19-2023 Tobacco smoking status ILIS Ex-smoker (finding) [facility] Start: 1940 Sex Assigned At Male F [facility] Start: 10-23-2020 End: 02-25-2023 Sex Assigned At [facility] Start: 07-01-2021 End: 07-02-2021 Tobacco smoking status NHIS Never smoked tobacco (finding) [facility] End: 03-09-1999 History of tobacco use Current smoker [facility] End: 03-09-1999 History of tobacco use Cigarette Smoker [facility] Start: 07-09-2022 Tobacco use and exposure Smoke less tobacco non-user [facility] Start: 02-25-2023 Alcohol intake Current non-dr reclamation worker of alcohol (finding) [facility] Start: 10-23-2020 End: 02-25-2023 History of Social function [facility] Do you belong to any clubs or organizations such as protestant groups, unions, fraternal or athletic groups, or school groups? No [facility] Are you now , , , , never or living with a partner? [facility] How often to you hav e a drink containing alcohol? Monthly or less [facility] How many standard dr inks containing alcohol do you have on a typical day? Patient declined [facility] How often do you hav e 6 or more drinks on 1 occasion? Never [facility] Do you feel stress - tense, restless, nervous, or anxious, or unable to sleep at night because your mind is troubled all the time - these days [OSQ] Not at all [facility] Start: 10-23-2020 Education 16 [facility] Start: 1940 Sex Assigned At Not on file P [facility] Medical Equipment Procedure Code Equipment Code Equipment Origin al Text Equipment Identifier Dates Decompression, spine, cervical, posterior approach OSTEOAMP GRANULES 10CC FDA Start: 03-19-2020 Decompression, spine, cervical, posterior approach Bone-screw internal spinal fixation system, non-sterile ()[id number] FDA Start: 03-19-2020 Decompression, spine, cervical, posterior approach Bone-screw internal spinal fixation system, non-sterile ()[id number] FDA Start: 03-19-2020 Decompression, spine, cervical, posterior approach Bone-screw internal spinal fixation system, non-sterile ()[id number] FDA Start: 03-19-2020 Decompression, spine, cervical, posterior approach Bone-screw internal spinal fixation system, non-sterile ()[id number] FDA Start: 03-19-2020 Decompression, spine, cervical, posterior approach Bone-screw internal spinal fixation system, non-sterile ()[id number] FDA Start: 03-19-2020 Decompression, spine, cervical, posterior approach Bone-screw internal spinal fixation system, non-sterile ()[id number] FDA Start: 03-19-2020 Decompression, spine, cervical, posterior approach Bone-screw internal spinal fixation system, non-sterile ()[id number] FDA Start: 03-19-2020 Decompression, spine, cervical, posterior approach CANCELLOUS 15CC CRUSHED FDA Start: 07-01-2021 Decompression, spine, cervical, posterior approach Spinal fusion graft kit ()[id number] FDA Start: 07-01-2021 Decompression, spine, cervical, posterior approach Bone-screw internal spinal fixation system, non-sterile ()[id number] FDA Start: 07-01-2021 Decompression, spine, cervical, posterior approach Bone-screw internal spinal fixation system, non-sterile ()[id number] FDA Start: 07-01-2021 Decompression, spine, cervical, posterior approach Bone-screw internal spinal fixation system, non-sterile ()[id number] FDA Start: 07-01-2021 Decompression, spine, cervical, posterior approach Bone-screw internal spinal fixation system, non-sterile ()[id number] FDA Start: 07-01-2021 Decompression, spine, cervical, posterior [...] low back pain Sacroiliitis, not elsewhere classified [facility] Work Phone: [phone] 700-151608-15-2024 Evaluation note* Diagnosis Onset Date Resolution Status [...] pain acute Sacroiliitis, not elsewhere classified acute [facility] Work Phone: [phone] 151-723403-07-2024 Miscellaneous Notes* Telephone Encounter - Rajani Thorne CNA - 05/14/2023 2:28 PM EST Barney notified of enrollment to the care management. [facility] [id number] Telephone encounter Note* Telephone Encounter - Rajani Thorne CNA - 05/14/2023 2:28 PM EST Barney notified of enrollment to the care management. [facility] [id number] Evaluation note* Encounter Date Diagnosis Assessment Notes [...] He does not take nonsteroidal anti-inflammatory drugs. [facility] Other 06-20-2023 Evaluation note* Encounter Date Diagnosis [...] He does not take nonsteroidal anti-inflammatory drugs. [facility] Other 04-04-2023 Evaluation note* Encounter Date Diagnosis [...] Cervical radiculopathy at C8 (ICD-10 - M54.12) [facility] Other 12-13-2022 Evaluation note* Encounter Date Diagnosis [...] He does not take nonsteroidal anti-inflammatory drugs. [facility] Other 08-23-2022 Evaluation note* Encounter Date Diagnosis [...] Cervical radiculopathy at C8 (ICD-10 - M54.12) [facility] Other 06-15-2022 Evaluation note* Encounter Date Diagnosis [...] He does not take nonsteroidal anti-inflammatory drugs. [facility] Other 05-24-2022 Evaluation note* Encounter Date Diagnosis [...] fusion of cervical spine (ICD-10 - Z98.1) [facility] Other 02-17-2022 Evaluation note* Encounter Date Diagnosis [...] meantime Apr, Cervical myelopathy (ICD-10 - G95.9) [facility] Other 01-06-2022 Evaluation note* Encounter Date Diagnosis [...] of right upper extremity (ICD-10 - G56.21) [facility] Other 10-07-2021 Evaluation note* Encounter Date Diagnosis [...] declined Dec, Cervical myelopathy (ICD-10 - G95.9) [facility] Other chief complaint+Reason for visit Narrative* Chief Complaint m47.12 FOLLOW UP PCD W/X-RAY CONSULT DR. 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 NUÑEZ M47.005 Back Pain Back Pain PROCEDURE F/U RENAL [...] Hypercalcemia Hyperparathyroid bone disease Vitamin B12 deficiency [facility] Work Phone: Chief complaint+Reason for visit Narrative* Chief Complaint m47.12 FOLLOW UP PCD W/X-RAY CONSULT DR. NUÑEZ M47.190 Back Pain Back Pain PROCEDURE F/U RENAL [...] Hypercalcemia Hyperparathyroid bone disease Vitamin B12 deficiency [facility] Work Phone: Chief complaint+Reason for visit Narrative* Chief Complaint CONSULT DR. NUÑEZ M37.319 Back Pain Back Pain PROCEDURE F/U RENAL [...] low back pain Sacroiliitis, not elsewhere classified [facility] Work Phone: Chijq complaint+Reason for visit Narrative* Chief Complaint Back [...] low back pain Sacroiliitis, not elsewhere classified [facility] Work Phone: Evaluation noteNo InformationNort [employer] Other Evaluation noteNo assessment information available [facility] Work Phone: Evaluation note* Diagnosis Dermatitis Contact dermatitis and other eczema, due to unspecified cause documented in this encounter [facility] Diagnosis Essential hypertension, benign [facility] Diagnosis Onset Date Resolution Status 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 acute Spondylolisthesis, cervical region acute [facility] Work Phone: evaluation note* Diagnosis Onset Date Resolution Status 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 acute Spondylolisthesis, cervical region acute Chronic pain acute Other low back pain acute Sacroiliitis, not elsewhere classified acute [facility] Work Phone: evaluation note* Diagnosis Onset Date Resolution Status 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 acute Spondylolisthesis, cervical region acute Chronic pain acute Other low back pain acute Sacroiliitis, not elsewhere classified acute Chronic pain acute Other low back pain acute Sacroiliitis, not elsewhere classified acute [facility] Work Phone: Evaluation note* Diagnosis Onset [...] bone disease acute Vitamin B12 deficiency acute [facility] Work Phone: Evaluation note* Diagnosis Onset [...] pain acute Sacroiliitis, not elsewhere classified acute [facility] Work Phone: Evaluation note* Diagnosis Onset [...] pain acute Sacroiliitis, not elsewhere classified acute [facility] Work Phone: History general Narrative - Reported* Type Description Date Medical History hypertension Medical History cervical myelopathy Medical History spinal stenosis Medical History pneumonia Medical History Acute Kidney Injury Medical History chronic kidney disease Surgical History back surgery Surgical History shoulder surgery Surgical History hemorrhoidectomy Surgical History hernia repair Surgical History Cervical fusion-Doctor Juvenal Hospitalization History See Above [facility] Other Hisjzim general Narrative - Reported* Type Description Date Medical History hypertension Medical History cervical myelopathy Medical History spinal stenosis Medical History pneumonia Medical History Acute Kidney Injury Medical History chronic kidney disease Surgical History back surgery Surgical History shoulder surgery Surgical History hemorrhoidectomy Surgical History hernia repair Surgical History Cervical fusion-Doctor Juvenal 06/11/2021 Hospitalization History See Above [facility] Other InstructionsNot on filedocumented in this encounter [facility] filedocumented in this encounter [facility]Not on filedocumented in this encounter [facility] Advance Directives No Advanced Directives Records [...] FOLLOW UP PCD W/X-RAY CONSULT DR. 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 Reason [...] accident (CVA) Unknown brother History of agent [place] exposure Unknown Relationship Condition Age at Onset Recorded Date/T fawad Not Specified Hypertension Unknown father Heart disease Unknown Hypertension Unknown daughter Cerebrovascular accident (CVA) Unknown brother History of agent [place] exposure Unknown brother Family history of mental disorder Unknown Malignant neoplasm Unknown daughter Hypertension Unknown History of stroke Unknown father Unknown family member Family history of other condition Unknow n Not Specified Unknown sister Malignant neoplasm Unknown Relationship Condition Age at Onset Recorded Date/T fawad mother Hypertension Unknown father Heart disease Unknown Hypertension Unknown daughter Cerebrovascular accident (CVA) Unknown brother History of agent [place] exposure Unknown brother Family history of mental disorder Unknown Malignant neoplasm Unknown daughter Hypertension Unknown History of stroke Unknown father Unknown family member Family history of other condition Unknow n mother Unknown sister Malignant neoplasm Unknown Summary Purpose Reason for Referral Reason Evaluate BUE EM G Diagnosis 1 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) Referral Organization [facility] urosurgery Referring Provider First Name Willian Referring [...] DATE CREATED AUTHOR AUTHOR'S ORGANIZ ATION 11/09/2020 [place] [facility] DATE CREATED AUTHOR AUTHOR'S ORGANIZ ATION 07/24/2023 [facility] ysician Group DATE CREATED AUTHOR AUTHOR'S ORGANIZ ATION 08/18/2023 [facility] DATE CREATED AUTHOR AUTHOR'S ORGANIZ ATION 10/28/2023 [facility] REASON FOR VISIT (unrecogniz ed section and content) Reason Comments Med Refill Reason Onset Date Comments Care Management 05/14/2023 Reason Onset Date Comments Med Refill 05/29/2023 Care Teams (unrecognized sec tion and content) Team Status: Active Member Role Status Dates Roberta Patino APRN CUSTOMER SALES REPRESENTATIVE-C Primary Care Provider Active Team Status: Active Member Role Status Dates Roberta Patino APRN CUSTOMER SALES REPRESENTATIVE-C Primary Care Provider Active Start: June 25, 2023 Willian Nuñez MD Attending Provider Active Star t: June 25, 2023 Team Status: Inactive Member Role Status Dates Roberta Patino APRN CUSTOMER SALES REPRESENTATIVE-C Primary Care Provider Active Start: June 25, 2023 End: June 25, 2023 Willian Nuñez MD Attending Provider Active Star t: June 25, 2023 End: June 25, 2023 Team Status: Inactive Member Role Status Dates Roberta Patino APRN CUSTOMER SALES REPRESENTATIVE-C Primary Care Provider Active Willian Nuñez MD Attending Provider Active Team Status: Inactive Member Role Status Dates Roberta Patino APRN CUSTOMER SALES REPRESENTATIVE-C Primary Care Provider Active Lynn Garcia MD Attending Provider Active Garden Equipment Mechanic Relationship Specialty Start Date End Date Roebrta Patino APRN-CLOUD SERVICES ARCHITECT [address], [place] [address] PCP - General Family Medicine 09/13/20 Garden Equipment Mechanic Relationship Specialty Start Date End Date Roberta Patino APRN-CNP [address], [place] [address] PCP - General Family Medicine 09/13/20 Garden Equipment Mechanic Relationship Specialty Start Date End Date Roberta Patino APRN-CNP [address], [place] [address] PCP - General Family Medicine 09/13/20 Team Status: Inactive Member Role Status Dates Roberta Patino APRN CUSTOMER SALES REPRESENTATIVE-C Primary Care Provider Active Start: July 16, 2023 End: July 16, 2023 Angel Carbajal MD Attending Provider Active Sta rt: July 16, 2023 End: July 16, 2023 Team Status: Active Member Role Status Dates Roberta Patino APRN CUSTOMER SALES REPRESENTATIVE-C Primary Care Provider Active Start: July 16, 2023 Angel Carbajal MD Attending Provider Active Sta rt: July 16, 2023 Team Status: Inactive Member Role Status Dates Roberta Patino APRN CUSTOMER SALES REPRESENTATIVE-C Primary Care Provider Active Start: July 21, 2023 End: July 21, 2023 Angel Carbajal MD Attending Provider Active Sta rt: July 21, 2023 End: July 21, 2023 Team Status: Active Member Role Status Dates Roberta Patino APRN CUSTOMER SALES REPRESENTATIVE-C Primary Care Provider Active Start: July 20 Angel Carbajal MD Attending Provider, Other Provider Active Start: July 21, 2023 Team Status: Inactive Member Role Status Dates Roberta Patino APRN CUSTOMER SALES REPRESENTATIVE-C Primary Care Provider Active Start: August 18, 2023 End: August 18, 2023 Angel Carbajal MD Attending Provider Active Sta rt: August 18, 2023 End: August 18, 2023 Team Status: Inactive Member Role Status eY Patino APRN CUSTOMER SALES REPRESENTATIVE-C Primary Care Provider Active Start: August 19, 2023 End: August 19, 2023 Cristofer Grey MD Attending Provider Active Star t: August 19, 2023 End: August 19, 2023 Team Status: Active Member Role Status Dates Roberta Patino APRN CUSTOMER SALES REPRESENTATIVE-C Primary Care Provider Active Start: August 26, 2023 Angel Carbajal MD Attending Provider Active Sta rt: August 26, 2023 Team Status: Inactive Member Role Status Ye Patino APRN CUSTOMER SALES REPRESENTATIVE-C Primary Care Provider Active Start: September 18, 2023 End: September 18, 2023 Angel Carbajal MD Attending Provider Active Sta rt: September 18, 2023 End: September 18, 2023 Team Status: Inactive Member Role Status Dates Roberta Patino APRN CUSTOMER SALES REPRESENTATIVE-C Primary Care Provider Active Start: September 24, 2023 End: September 24, 2023 Angel Carbajal MD Attending Provider Active Sta rt: September 24, 2023 End: September 24, 2023 Team Status: Inactive Member Role Status Dates Roberta Patino APRN CUSTOMER SALES REPRESENTATIVE-C Primary Care Provider Active Start: October 14, 2023 End: October 14, 2023 Angel Carbajal MD Attending Provider Active Sta rt: October 14, 2023 End: October 14, 2023 Team Status: Active Member Role Status Dates Roberta Patino APRN CUSTOMER SALES REPRESENTATIVE-C Primary Care Provider Active Start: October 14, 2023 Angel Carbajal MD Attending Provider Active Sta rt: October 14, 2023 Team Status: Inactive Member Role Status Dates Roberta Patino APRN CUSTOMER SALES REPRESENTATIVE-C Primary Care Provider Active Start: October 22, [...] BE BASED ON THE PRIMARY CLINICAL RECORDS. [facility] [employer] provides no warranty or guarantee of the accuracy or completeness of information in this document.
--- NOTE | 2023-12-14 13:32 | P.CN_ITS ---
Consult Note: HPI Data of Consult Patient: known to practice within the last 3 years Consult date: 12/14/23 Requesting Physician: Mabel De La Garza MD Primary Care Provider: Roberta Patino NP Consult Narrative Reason for consult: low back, bilateral lower extremity pain Narrative: 83yom who presents for assessment. continues to have significant low back and bilateral lower extremity pain. imaging reviewed, severe stenosis at l4-5 with grade 1-2 listhesis of L4 on 5. moderate to severe stenosis at multiple other levels. continues to engage in a series of provider directed home exercises, without much benefit. uses otc meds as needed. denies adverse med side effects. 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) Low back pain ?M54.50 - Low back pain, unspecified (ICD-10) Hypertension ?I10 - Essential (primary) hypertension (ICD-10) Kidney dysfunction ?N28.9 - Disorder of kidney and ureter, unspecified (ICD-10) Surgical History H/O repair of rotator cuff ?Z98.890 - Other specified postprocedural states (ICD-10) H/O cervical spine surgery ?Z98.890 - Other specified postprocedural states (ICD-10) H/O shoulder replacement ?Z96.619 - Presence of unspecified artificial shoulder joint (ICD-10) H/O hernia repair ?Z98.890 - Other specified postprocedural states (ICD-10) ?Z87.19 - Personal history of other diseases of the digestive system (ICD-10) Hx of laminectomy ?Z98.890 - Other specified postprocedural states (ICD-10) Meds Home Medications and Allergies Home Medications ?Medication ?Instructions ?Recorded ?Confirmed ?Type amlodipine 5 mg tablet 5 mg PO DAILY 11/17/23 11/17/23 History ascorbic acid (vitamin C) 500 mg 500 mg PO DAILY 11/17/23 11/17/23 History capsule cyanocobalamin (vitamin B-12) 1,000 mcg PO DAILY 11/17/23 11/17/23 History 1,000 mcg capsule cyclobenzaprine 5 mg tablet 5 mg PO DAILY 11/17/23 11/17/23 History diclofenac sodium 1 % topical gel 2 g topical QID 11/17/23 11/17/23 History famotidine 20 mg tablet 20 mg PO BID 11/17/23 11/17/23 History finasteride 5 mg tablet 5 mg PO DAILY 11/17/23 11/17/23 History fluticasone propionate 50 1 inh inhalation QAM 11/17/23 11/17/23 History mcg/actuation blister powder for inhalation losartan 50 mg tablet 75 mg PO DAILY 11/17/23 11/17/23 History nystatin 100,000 unit/gram topical 1 applic topical DAILY 11/17/23 11/17/23 History cream peg 400-propylene glycol 0.4 %-0.3 1 drp ophthalmic (eye) DAILY PRN 11/17/23 11/17/23 History % eye drops (Systane Ultra) dry eye(s) tamsulosin 0.4 mg capsule 0.4 mg PO DAILY 11/17/23 11/17/23 History triamcinolone acetonide 0.1 % 1 applic topical DAILY 11/17/23 11/17/23 History topical cream triamterene 37.5 1 cap PO DAILY 11/17/23 11/17/23 History mg-hydrochlorothiazide 25 mg capsule Allergies Allergy/AdvReac Type Severity Reaction Status Date / Time aspirin Allergy Unknown Unknown Verified 11/17/23 08:42 naproxen Allergy Unknown Unknown Verified 11/17/23 08:42 Exam Narrative Exam Narrative: Psych-alert and oriented x 3. Attentive and appropriate, constitutionally normal, displays normal mood and affect per situation. There are no obvious deficits in memory, reasoning, or intellect.? Skin-no obvious rashes, bruising, erythema noted to the patient's area of pain.? Extremities- extremities are warm with minimal edema and palpable pulses. Lumbar-tenderness to palpation noted in the lumbar spine and paraspinal musculature. Pain is not elicited with flexion, extension, and lateral rotation of the lumbar spine. Range of motion is not diminished with these motions. Facet loading maneuvers are negative.? Strength-noted to be unremarkable with the exception of decreased strength rated at 4 out of 5 in bilateral quadriceps femoris, anterior tibialis. Sensory-no notable sensory deficits in the bilateral lower extremities to touch or pinprick in all dermatomal distributions with the exception to decreased sensation to the bilateral L4, 5 dermatomal distribution Coordination remains intact.? Gait remains non-antalgic. Assessment and Plan Assessment and Plan (1) Lumbar stenosis with neurogenic claudication: (2) Lumbar postlaminectomy syndrome: Plan 83yom who presents for assessment. failed conservative measures, as noted. imaging reviewed, as noted. discussed that given severity of narrowing with degree of listhesis, he was not a candidate for vertiflex. however, given his failure to respond to multiple rounds of physical therapy, chiropractic therapy, epidural injections, lumbar medial branch blocks, and medications, as well as his previous back surgeries, he may be a good candidate for spinal cord stimulation. i provided him with information on this. meds reviewed, no changes. will follow up as needed.
== END 2023-12-14 12:06 | disposition home or self-care (01) ==
LOC: PM 12:06
PROVIDERS: PCP Nurse Practitioner; Visit Provider Anesthesiology
DX: M48.062 Spinal stenosis, lumbar region with neurogenic claudication (principal); M96.1 Postlaminectomy syndrome, not elsewhere classified
CPT/HCPCS: G0463

== ENCOUNTER 2024-01-20 12:29 | Outpatient (OUT) | payer MEDICARE, BC, SELFPAY ==
--- NOTE | 2024-01-20 12:39 | ECG_ITS ---
The [facility] Test Date: 2024-01-20 Pat Name: MARCIANO MCMILLAN Department: Room: - Gender: Male [employer]: : 1940 Requested By: Order Number: [id number] Reading MD: JAN SEPULVEDA Measurements Intervals [place] Rate: 70 P: 21 [place]: 185 QRS: 83 QRSD: 111 T: 41 QT: 372 QTc: 404 Interpretive Statements SINUS RHYTHM MODERATE INTRAVENTRICULAR CONDUCTION DELAY [110+ ms QRS DURATION] No previous ECG available for comparison Electronically Signed On 01-20-2024 22:35:02 EST by JAN SEPULVEDA
--- NOTE | 2024-01-20 12:39 | XR_ITS ---
The [address] [address] Patient Name: MARCIANO MCMILLAN MRN: [id number] date: 1940 Sex: M Assigned Patient Location: [facility] Current Patient Location: Accession/Order Number: [id number] Exam Date: 01/20/2024 13:51 Report Date: 01/21/2024 15:44 At the request of: THIAGO FOFANAEDRAGARDENIA Procedure: XR chest 2V PROCEDURE: XR chest 2V DATE: 01/20/2024 1:51 PM EST COMPARISONS: 12/10/2010 CLINICAL INDICATION: 84 years Male Preop exam FINDINGS: The cardiomediastinal silhouette and pulmonary vasculature are within normal limits. There is calcification in the wall of the thoracic aorta slightly more prominent than previous. The lungs are clear. There is no evidence of pleural effusion or pneumothorax. There is now postop changes of the cervical spine and left shoulder prosthesis. There is again evidence of thoracic spondylosis slightly more prominent than 12/10/2010. There is right shoulder degenerative changes or prominent than 12/10/2010 XR/XR chest 2V IMPRESSION: Chest shows no evidence of acute abnormalities. Electronically authenticated by: PAULA PALACIOS Date: 01/21/2024 15:44
--- OUTSIDE RECORDS SUMMARY | 2024-01-20 12:40 | XMS_ITS | CCD ---
Author Organization [facility] Care Team Providers Care Coding Consultant Name Role Phone Jared Petty Primary Care Provider [phone] Willian Nuñez Attending Provider [phone] Willian Nuñez Unavailable Lynn Garcia Unavailable Cristofer Odonnell Unavailable LINDA Patino Primary Care Provider MD Lynn Garcia Attending Provider MD Willian Nuñez Attending Provider LINAD Patino Primary Care Provider MD Willian Nuñez Attending Provider Roberta John Primary Care Provi chong LINDA Patino Primary Care Provider MD Willian Nuñez Attending Provider [phone] MD Angel Carbajal Attending Provider Angel Carbajal Admitting Unavailable Angel Carbajal Attending Unavailable Rboerta Patino Primary Care Unavailable Angel Carbajal Admitting Unavailable Angel Carbajal Attending Unavailable Roberta Patino Primary Care Unavailable Willian Nuñez Admitting Unavailable Willian Nuñez Attending Unavailable Roberta Patino Primary Care Unavailable CRISTOFER ODONNELL Referring Unavailable ROBERTA PATINO Primary Care Unavailable LINDA Patino Primary Care Provider LINDA Patino Primary Care Provider MD Angel Carbajal Attending Provider ROBERTA PATINO A Attending Unavailable ROBERTA PATINO A Referring Unavailable SUNITA PATINOITH A Primary Care Unavailable CHERRYSUNITA RAMEYITH A Attending Unavailable CHRERY ROBERTA A Referring Unavailable CHERRY ROBERTA A Primary Care Unavailable MAGO ANGEL Attending Unavailable CHERRY ROBERTA A Referring Unavailable SUNITA PATINOITH A Primary Care Unavailable SUNITA PATINOITH A Attending Unavailable CHERRY ROBERTA A Referring Unavailable SUNITA PATINOITH A Primary Care Unavailable Unavailable Unavailable Unavailable Allergies Allergy Classification Reported Allergen(s) Allergy Type Date of Onset Reaction(s) Facility (20 sources) Aspirin; Translations: [aspirin] Drug Allergy 9 GI Disturbance [facility] (14 sources) NSAIDS (Non-Steroidal Anti-Inflamma Propensity to adverse reactions 1 GI bleed [facility] (20 sources) Anti-Inflammato ry Enzyme Drug allergy 4 Unknown, Unknown Reaction [facility] (20 sources) Naproxen; Translations: [NAPROXEN] Drug Allergy 9 Other (See Comments) Groupiter Other Medications Current Medications Medication Drug Class(es) Dates Sig (Normalized) Sig (Original) amLODIPine 5 mg oral tablet (20 sources) Dihydropyridine Calcium Channel Madeline Start: 08-19-2023 take 1 tablet by mouth once daily amLODIPine (NORVASC) 5 mg tablet Indications: Essential hypertension, benign take 1 tablet by mouth once daily MAY TAKE ADDITIONAL TABLET IF BP GREATER THAN 150 90 tablet 1 10/19/2023 Active Start: 05-29-2023 take 1 tablet by allyson [...] Amlodipine Discontinued 10 MG PO Daily 30 April 03, 2020 1:00am June 17, [...] 12, 2020 1:00am April 03, 2020 9:58am cyclobenzaprine hydrochloride 5 mg oral tablet (20 sources) Muscle Relaxant Start: 08-19-2023 take 1 tablet by mouth once daily as needed for muscle spasms cyclobenzaprine (FLEXERIL) 5 mg tablet Indications: Cervical neuropathic pain Take 1 tablet (5 mg total) by mouth daily as needed for muscle spasms. 30 tablet 3 10/19/2023 Active Start: 07-03-2021 End: 08-19-2023 take 5 mg [...] gel (20 sources) Nonsteroidal Anti-inflammatory Drug Start: 05-29-2018 End: 04-03-2020 Diclofenac Sodium Active 1 EACH TOPICAL As Directed June 17, 2021 12:00am famotidine 20 mg oral tablet (20 sources) Histamine-2 Receptor Antagonist Start: 10-05-2023 take 1 tablet by mouth in the morning, then take 1 tablet by mouth at bedtime, then take 1 tablet by mouth twice daily at bedtime famotidine (PEPCID) 20 mg tablet Take 1 tablet (20 mg total) by mouth in the morning and 1 tablet (20 mg total) before bedtime. TAKE 1 TABLET BY MOUTH TWICE A DAY (MORNING AND BEFORE BEDTIME). 180 tablet 1 10/05/2023 Active Start: 03-12-2020 End: 04-06-2023 take 20 mg by mouth twice daily Famotidine Discontinue d 20 MG PO Twice daily 60 30 April 03, 2020 1:00am June 17, 2021 12:49pm Start: 03-12-2020 End: 03-21-2020 take 20 mg by mouth once daily at bedtime Famotidine Discontinued 20 MG PO Daily at bedtime March 12, 2020 1:00am March 21, 2020 2:16pm finasteride 5 mg oral tablet (20 sources) 5-alpha Reductase Inhibitor Start: 09-26-2023 take 1 tablet by mouth in the morning finasteride (PROSCAR) 5 mg tablet Take 1 tablet (5 mg total) by mouth in the morning. 90 tablet 1 09/26/2023 Active Start: 03-21-2020 End: 04-03-2020 take 5 mg by mouth once daily in the morning Finasteride Discontinued 5 MG PO Every morning March 21, 2020 5:29pm April 03, 2020 9:58am fluticasone propionate 0.05 mg/actuat metered dose nasal spray (15 sources) Corticosteroid Start: 08-19-2023 Fluticasone Pr opionate Active INTRANASAL August 19, 2023 12:00am Start: 08-12-2023 take 1 spray(s) nasa l route in the morning fluticasone propionate (FLONASE) 50 mcg/actuation nasal spray Administer 1 spray into each nostril in the morning. 16 g 3 08/12/2023 Active Start: 04-06-2023 take 1 spray(s) nasa l [...] (20 sources) Potassium-sparing Diuretic, Thiazide Diuretic Start: 11-17-2023 take 1 capsule by mouth once daily as needed for edema triamterene-hydroCHLOROthiazide (DYAZIDE) 37.5-25 mg per capsule Indications: Edema of both lower legs Take 1 capsule by mouth daily as needed (edema/htn). 90 capsule 1 11/17/2023 Active Start: 09-27-2022 take 1 capsule by mouth every other day for edema triamterene-hydroCHLOROthiazide (DYAZIDE ) 37.5-25 mg per capsule Indications: Essential hypertension, [...] (20 sources) Angiotensin 2 Receptor Madeline Start: 10-19-2023 take 1.5 tablets by mouth in the morning losartan (COZAAR) 50 mg tablet Take 1.5 tablets (75 mg total) by mouth in the morning. 135 tablet 1 10/19/2023 Active Start: 08-19-2023 take 75 mg by mouth [...] 2020 1:00am June 17, 2021 12:49pm nystatin 881998 unt/ml topical cream (20 sources) Polyene Antifungal Start: 11-10-2023 nystatin (M YCOSTATIN) cream Indications: Dermatitis apply 1 APPLICATION topically to affected area if needed for DERMATITIS 30 g 2 11/10/2023 Active Start: 10-31-2022 End: 03-12-2023 nystatin (MYCOSTATIN) cream Indications: Dermatitis apply 1 APPLICATION topically to affected area if needed for DERMATITIS 30 g 2 03/12/2023 Active Start: 06-17-2021 Nystatin Activ e 1 APPLIC TOPICAL As Directed June 17, 2021 12:00am Nystatin 570746 UNIT/GM 1 application Externally Twice a day Active Nystatin 692969 UNIT/GM 1 application Externally Twice a day [...] Discontinued 2.5 MG PO Three times daily 20 7 April 03, 2020 June 17, 2021 12:48pm Start: [...] 1 drop into each eye as needed Active take 1 drop(s) into the eye(s) [...] capsules by mouth nightly 180 capsule 1 12/28/2023 Active Start: 01-04-2023 take 2 capsules by m outh once daily tamsulosin (FLOMAX) 0.4 mg capsule [...] Discontinued 0.8 MG PO Daily at bedtime April 03, [...] Active triamcinolone acetonide 0.001 mg/mg topical ointment (15 sources) Corticosteroid Start: 11-10-19 triamcinolone (KENALOG) 0.1 % ointment Indications: Dermatitis APPLY 1 APPLICATION TOPICALLY TO AFFECTED AREA EVERY MORNING THEN APPLY 1 APPLICATION BEFORE BEDTIME 80 g 1 11/10/2023 Active Start: 08-19-2023 Triamcinolone Acetonide Active APPLIC TOPICAL August 19, 2023 12:00am Start: 01-25-2023 triamcinolone (KENALOG) 0.1 % ointment Indications: Dermatitis APPLY 1 APPLICATION TOPICALLY TO AFFECTED AREA EVERY MORNING THEN APPLY 1 APPLICATION BEFORE BEDTIME 80 g 1 01/25/2023 Active Triamcinolone Ac etonide 0.1 % 1 application Externally Twice a day Active vitamin b12 1 mg oral tablet (20 sources) Vitamin B12 Start: 08-12-2023 take 1 tablet by mouth in the morning cyanocobalamin 1000 MCG tablet Take 1 tablet (1,000 mcg total) by mouth in the morning. 90 tablet 1 08/12/2023 Active Start: 04-03-2020 End: 06-17-2021 take 1000 ug by mouth once daily in the morning Cyanocobalamin (Vitamin B-12) Active 1000 MCG PO Every morning June 17, 2021 12:48pm take 1 tablet by allyson th once daily as needed Cyanocobalamin 1000 MCG 1 tablet Orally ONCE A DAY PRN Active take 1 tablet by allyson th once daily Cyanocobalamin 1000 MCG 1 tablet Orally Once [...] D3) Discontinued 25 MCG PO Every morning April 03, 2020 1:00am June 17, 2021 [...] Capsule Discontinued 100 MG PO Twice daily April 03, 2020 1:00am July 21, 2023 9:32am docusate sodium 50 mg / sennosides, retirement 8.6 mg oral tablet (12 sources) Start: 03-21-2020 End: 04-03-2020 take 2 tablets by mouth twice daily Sennosides-Docusate Sodium Discontinued 2 TAB PO Twice daily March 21, 2020 1:00am April 03, 2020 9:58am Magnesium Hydroxide (12 [...] and hyponatremia] 03-26-2020 Episodic Hyperplasia of prostate (20 sources) Benign prostatic hyperplasia; Translations: [Benign prostatic hyperplasia without lower urinary tract symptoms] Onset: 10-22-2016 Chronic Hypertension with complications and secondary hypertension (20 sources) Malignant hypertensive chronic kidney disease; Translations: [Hypertensive chronic kidney disease with stage 1 through stage 4 chronic kidney disease, or unspecified chronic kidney disease] Onset: 08-21-2021 Resolved: 08-21-2021 Chronic Nutritional deficiencies (20 sources) Decreased vitamin B12 [...] fusion; Translations: [Arthrodesis status] 06-25-2023 Episodic Other ear and sense organ disorders (1 source) Impacted cerumen in right ear; Translations: [Impacted cerumen, right ear] Onset: 10-07-2023 10-07-2023 Episodic Other endocrine disorders (8 sources) Osteitis fibrosa cystica; Translations: [Primary hyperparathyroidism] 08-18-2023 Chronic Other endocrine disorders (8 sources) Primary hyperparathyroidism; Translations: [Primary hyperparathyroidism] Onset: 08-17-2023 Chronic Other gastrointestinal disorders (12 sources) Constipation; Translations: [Constipation, unspecified] 03-25-2020 Episodic Other inflammatory condition of skin (6 sources) Rosacea; Translations: [Rosacea, unspecified] Onset: 10-22-2016 [...] Translations: [Other specified postprocedural states] 03-22-2020 Episodic Residual codes; unclassified (1 source) Bilateral lower leg edema; Translations: [Localized edema] Onset: 10-07-2023 10-07-2023 Episodic Spondylosis; intervertebral disc disorders; other back problems (20 sources) Cervical spondylosis with myelopathy; Translations: [Other spondylosis with myelopathy, cervical region] Onset: 02-09-2019 Resolved: 10-29-2021 Chronic Unclassified (1 source) Annual Exam Onset: 10-07-2023 Viral infection (1 source) COVID-19; Translations: [Other specified viral infection] Onset: 11-24-2023 11-24-2023 Episodic Past or Other Problems Problem Classification Problem Date Documented Da te Episodic/Chronic Allergic reactions (8 sources) Inflammatory dermatosis; Translations: [Dermatitis, unspecified] Onset: 10-25-2020 03-12-2023 Episodic Immunizations and screening for infectious disease (2 sources) Encounter for immunization; Translations: [Other specified abnormal immunological findings in serum] Onset: 10-07-2023 Resolved: 11-25-2023 11-25-2023 Episodic Mood disorders (6 sources) Mood disorders Onset: 09-26-2022 Resolved: 10-07-2023 09-26-2022 Other gastrointestinal disorders (6 sources) Slow transit constipation; Translations: [Slow transit constipation] Onset: 08-12-2021 08-12-2021 Episodic Other nervous system disorders (6 sources) Paresthesia of upper limb; Translations: [Anesthesia of skin] Onset: 05-06-2021 05-06-2021 Episodic Residual codes; unclassified (6 sources) H/O Spinal surgery; Translations: [Other specified postprocedural states] Onset: 08-12-2021 08-12-2021 Episodic Spondylosis; intervertebral disc disorders; other back problems (20 sources) Chronic low back pain; Translations: [Lumbago with sciatica, right side] Onset: 05-31-2018 Resolved: 10-29-2021 Episodic Results Test Name Value Interpretation Reference Range Facility COMPLETE BLOOD COUNTon 08-16 Erythrocyte distribution width (RBC) [Ratio] 14.0 % Normal 11.5-15.0 [facility] Comment on above: Performed By: #### C BC, UPCR, CMP, 74448-5, 2777-1, 3084-1, 2731-8, 2132-9, 69681-2 #### [facility] ([id number]) [address], [address] [place] [address] Hematocrit (Bld) [Volume fraction] 39.1 % Normal 39-49 [facility] Comment on above: Performed By: #### C BC, UPCR, CMP, 48708-7, 2777-1, 3084-1, 2731-8, 2132-9, 70529-5 #### [facility] ([id number]) [address], [address] [place] [address] Hemoglobin (Bld) [Mass/Vol] 13.6 g/dL Normal 13.0-17.0 [facility] Comment on above: Performed By: #### C BC, UPCR, CMP, 62571-6, 2777-1, 3084-1, 2731-8, 2132-9, 77119-7 #### [facility] ([id number]) [address], [address] [place] [address] MCH (RBC) [Entitic mass] 32.9 pg Normal 27-34 [facility] Comment on above: Performed By: #### C BC, UPCR, CMP, 74120-9, 2777-1, 3084-1, 2731-8, 2132-9, 03117-0 #### [facility] ([id number]) [address], [address] [place] [address] MCHC (RBC) [Mass/Vol] 34.9 g/dL Normal 32-36 [facility] Comment on above: Performed By: #### C BC, UPCR, CMP, 12865-1, 7-1, 3084-1, 2731-8, 2-9, 64709-0 #### [facility] ([id number]) [address], [address] [place] [address] MCV (RBC) [Entitic vol] 94 fL Normal 80-100 [facility] Comment on above: Performed By: #### C BC, UPCR, CMP, 10471-7, 2777-1, 3084-1, 2731-8, 2132-9, 01621-3 #### [facility] ([id number]) [address], [address] [place] [address] Platelet mean volume (Bld) [Entitic vol] 8.3 fL Normal 7-12 [facility] Comment on above: Performed By: #### C BC, UPCR, CMP, 17368-6, 2777-1, 3084-1, 2731-8, 2132-9, 26569-7 #### [facility] ([id number]) [address], [address] [place] [address] Platelets (Bld) [#/Vol] 189 10*3/uL Normal 150-450 [facility] Comment on above: Performed By: #### C BC, UPCR, CMP, 90049-0, 2777-1, 3084-1, 2731-8, 2132-9, 26171-9 #### [facility] ([id number]) [address], [address] [place] [address] RBC COUNT 4.15 X10E12/L Normal 4.10-5.70 [facility] Comment on above: Performed By: #### C BC, UPCR, CMP, 23485-2, 2777-1, 3084-1, 2731-8, 2131-9, 94055-1 #### [facility] ([id number]) [address], [address] [place] [address] WBC (Bld) [#/Vol] 5.1 10*3/uL Normal 4.0-11.0 [facility] Comment on above: Performed By: #### C BC, UPCR, CMP, 98410-8, 2777-1, 3084-1, 2731-8, 2131-9, 03353-1 #### [facility] ([id number]) [address], [address] [place] [address] COMPREHENSIVE METABOLIC PANE Dima 08-17-2023 Albumin [Mass/Vol] 4.2 g/dL Normal 3.2-5.3 [facility] Comment on above: Performed By: #### C BC, UPCR, CMP, 60375-9, 2777-1, 3084-1, 2731-8, 2132-9, 90894-9 #### [facility] ([id number]) [address], [address] [place] [address] ALP [Catalytic activity/Vol] 61 U/L Normal 39-130 [facility] Comment on above: Performed By: #### C BC, UPCR, CMP, 93530-4, 2777-1, 3084-1, 2731-8, 2132-9, 65149-8 #### [facility] ([id number]) [address], [address] [place] [address] ALT [Catalytic activity/Vol] 21 U/L Normal 0-40 [facility] Comment on above: Performed By: #### C BC, UPCR, CMP, 63390-1, 2777-1, 3084-1, 2731-8, 2132-9, 12663-2 #### [facility] ([id number]) [address], [address] [place] [address] Anion gap [Moles/Vol] 8 mmol/L Normal 5-15 [facility] Comment on above: Performed By: #### C BC, UPCR, CMP, 69643-2, 2777-1, 3084-1, 2731-8, 2131-9, 31740-8 #### [facility] ([id number]) [address], [address] [place] [address] AST [Catalytic activity/Vol] 19 U/L Normal 0-41 [facility] Comment on above: Performed By: #### C BC, UPCR, CMP, 96385-4, 2777-1, 3084-1, 2731-8, 2-9, 45803-9 #### [facility] ([id number]) [address], [address] [place] [address] Bilirubin [Mass/Vol] 0.6 mg/dL Normal 0.3-1.2 [facility] Comment on above: Performed By: #### C BC, UPCR, CMP, 19510-9, 2777-1, 3084-1, 2731-8, 2132-9, 02620-7 #### [facility] ([id number]) [address], [address] [place] [address] Calcium [Mass/Vol] 9.7 mg/dL Normal 8.5-10.5 [facility] Comment on above: Performed By: #### C BC, UPCR, CMP, 87581-2, 2777-1, 3084-1, 2731-8, 2132-9, 01916-2 #### [facility] ([id number]) [address], [address] [place] [address] Chloride [Moles/Vol] 104 mmol/L Normal 98-109 [facility] Comment on above: Performed By: #### C BC, UPCR, CMP, 49520-0, 7-1, 3084-1, 2731-8, 2132-9, 81644-6 #### [facility] ([id number]) [address], [address] [place] [address] CO2 [Moles/Vol] 29 mmol/L Normal 22-32 [facility] Comment on above: Performed By: #### C BC, UPCR, CMP, 87767-2, 2776-, 3084-1, 2731-8, 2131-9, 59572-5 #### [facility] ([id number]) [address], [address] [place] [address] Creatinine [Mass/Vol] 1.29 mg/dL Normal 0.60-1.30 [facility] Comment on above: Result Comment: METH OD TRACEABLE TO IDMS STANDARD Performed By: #### C BC, UPCR, CMP, 88306-4, 2776-1, 3084-1, 2731-8, 2-9, 37110-8 #### [facility] ([id number]) [address], [address] [place] [address] GFR/1.73 sq M.predicted among non-blacks MDRD (S/P/Bld) [Vol rate/Area] 55 mL/min/{1.73_m2} Low >59 [facility] Comment on above: Result Comment: Reported eGFR is based on the CKD-EPI 2020 equation that does not use a race coefficient. Performed By: #### C BC, UPCR, CMP, 83626-4, 2777-1, 3084-1, 2731-8, 2132-9, 77213-9 #### [facility] ([id number]) [address], [address] [place] [address] Glucose [Mass/Vol] 94 mg/dL Normal 65-99 [facility] Comment on above: Performed By: #### C BC, UPCR, CMP, 77576-9, 2777-1, 3084-1, 2731-8, 2-9, 96786-3 #### [facility] ([id number]) [address], [address] [place] [address] Potassium [Moles/Vol] 4.4 mmol/L Normal 3.5-5.0 [facility] Comment on above: Performed By: #### C BC, UPCR, CMP, 51357-1, 2777-1, 3084-1, 2731-8, 2131-9, 43043-2 #### [facility] ([id number]) [address], [address] [place] [address] Protein [Mass/Vol] 6.7 g/dL Normal 6.0-8.0 [facility] Comment on above: Performed By: #### C BC, UPCR, CMP, 74588-5, 2777-1, 3084-1, 2731-8, 2-9, 84023-7 #### [facility] ([id number]) [address] [place] [address] Sodium [Moles/Vol] 141 mmol/L Normal 134-146 [facility] Comment on above: Performed By: #### C BC, UPCR, CMP, 49766-7, 2777-1, 3084-1, 2731-8, 2-9, 57571-1 #### [facility] ([id number]) [address], [address] [place] [address] Urea nitrogen [Mass/Vol] 23 mg/dL Normal 5-27 [facility] Comment on above: Performed By: #### C BC, UPCR, CMP, 86979-2, 2777-1, 3084-1, 2731-8, 2131-9, 17003-2 #### [facility] ([id number]) [address], [address] [place] [address] MAGNESIUMon 08-17-2023 Magnesium [Mass/Vol] 2.1 mg/dL Normal 1.8-2.6 [facility] Comment on above: Performed By: #### C BC, UPCR, CMP, 85285-4, 2777-1, 3084-1, 2731-8, 2131-9, 99618-3 #### [facility] ([id number]) [address], [address] [place] [address] PHOSPHORUSon 08-17-2023 Phosphate [Mass/Vol] 2.3 mg/dL Low 2.4-4.9 [facility] Comment on above: Performed By: #### C BC, UPCR, CMP, 46646-9, 2777-1, 3084-1, 1-8, 2131-9, 67286-5 #### [facility] ([id number]) [address], [address] [place] [address] PROTEIN CREAT RATIOon 2023 RANDOM URINE PROTEIN 190 mg/L High <120 [facility] Comment on above: Performed By: #### C BC, UPCR, CMP, 58937-7, 2777-1, 3084-1, 2731-8, 2131-9, 17138-8 #### [facility] ([id number]) [address] [place] [address] U/PRO/REAMING MACHINE TENDER RATIO CALC 0.14 Normal <0.2 [facility] Comment on above: Result Comment: Neph rotic Syndrome is associated with ratios >3.5 Performed By: #### C BC, UPCR, CMP, 60255-3, 2777-1, 3084-1, 2731-8, 2-9, 12724-3 #### [facility] ([id number]) [address], [address] [place] [address] URINE CREATININE,RDM 131.58 mg/dL Normal Pr [facility] Comment on above: Performed By: #### C BC, UPCR, CMP, 19940-3, 2777-1, 3084-1, 2731-8, 2131-9, 49048-9 #### [facility] ([id number]) [address], [address] [place] [address] Parathyrin.intact [Mass/Vol] on 08-17-2023 PTH INTACT 88 pg/mL Normal 12 [facility] Comment on above: Performed By: #### C BC, UPCR, CMP, 39892-1, 2777-1, 3084-1, 2731-8, 2131-9, 63236-0 #### [facility] ([id number]) [address], [address] [place] [address] URIC ACIDon 08-17-2023 Urate [Mass/Vol] 5.2 mg/dL Normal 2.6-7.2 [facility] Comment on above: Performed By: #### C BC, UPCR, CMP, 53361-4, 2777-1, 3084-1, 2731-8, 2131-9, 19474-2 #### [facility] ([id number]) [address], [address] [place] [address] URINALYSISon 08-17-2023 Bilirubin Ql (U) Negative Normal NEG [facility] Comment on above: Performed By: #### U A #### [facility] ([id number]) [address], [address] [place] [address] BLOOD/HGB Negative Normal NEG [facility] Comment on above: Performed By: #### U A #### [facility] ([id number]) [address], [address] [place] [address] Color (U) YELLOW Normal YELLOW [facility] Comment on above: Performed By: #### U A #### [facility] ([id number]) [address], [address] [place] [address] Glucose Ql (U) Negative Normal NEG [facility] Comment on above: Performed By: #### U A #### [facility] ([id number]) [address], [address] [place] [address] Ketones Ql (U) Negative Normal NEG [facility] Comment on above: Performed By: #### U A #### [facility] ([id number]) [address], [address] [place] [address] Leukocyte esterase Test strip Ql (U) Negative Normal NEG [facility] Comment on above: Performed By: #### U A #### [facility] ([id number]) [address], [address] [place] [address] MUCOUS PRESENT Abnormal NONE [facility] Comment on above: Performed By: #### U A #### [facility] ([id number]) [address], [address] [place] [address] Nitrite Ql (U) Negative Normal NEG [facility] Comment on above: Performed By: #### U A #### [facility] ([id number]) [address], [address] [place] [address] pH (U) 6.0 [pH] Normal 5.0-8.5 [facility] Comment on above: Performed By: #### U A #### [facility] ([id number]) [address], [address] [place] [address] Protein Ql (U) Trace Abnormal NEG [facility] Comment on above: Performed By: #### U A #### [facility] ([id number]) [address], [address] [place] [address] R.B.CELLS 1 /hpf Normal 0-5 [facility] Comment on above: Performed By: #### U A #### [facility] ([id number]) [address], [address] [place] [address] Specific gravity (U) [Rel density] 1.023 Normal 1.003-1.035 [facility] Comment on above: Performed By: #### U A #### [facility] ([id number]) [address], [address] [place] [address] SQUAMOUS EPITHELIUM <1 Normal 0-5 [facility] Comment on above: Performed By: #### U A #### [facility] ([id number]) [address] [place] [address] TURBIDITY CLEAR Normal CLEAR [facility] Comment on above: Performed By: #### U A #### [facility] ([id number]) [address] [place] [address] Urobilinogen (U) [Mass/Vol] mg/dL Normal <1.1 [facility] Comment on above: Performed By: #### U A #### [facility] ([id number]) [address], [address] [place] [address] W.B.CELLS 1 /hpf Normal 0-5 [facility] Comment on above: Performed By: #### U A #### [facility] ([id number]) [address], [address] [place] [address] VITAMIN B12on 08-17-2023 Cobalamin (Vitamin B12) [Mass/Vol] 539 pg/mL Normal 180-914 [facility] Comment on above: Performed By: #### C BC, UPCR, CMP, 19759-5, 2777-1, 3084-1, 2731-8, 2132-9, 59148-2 #### [facility] ([id number]) [address] [place] [address], [address] [place] [address] Vitamin D+Metabolites [Mass/ Vol]on 08-17-2023 VITAMIN D 25 HYD TOT 58.8 ng/mL Normal 30-100 [facility] Comment on above: Result Comment: Vitamin D status 25 [place] Vitamin D Deficiency <20 ng/mL Insufficiency 20-29 ng/mL Sufficiency 30-100 ng/mL Toxicity >100 ng/mL NOTE: A pediatric reference range has not been established by the senior director insight of this kit. The [place] [employer] recommends a Vitamin D level of = or >20ng/mL in infants and children. Performed By: #### C BC, UPCR, CMP, 37248-3, 2777-1, 3084-1, 2731-8, 2-9, 28022-2 #### [facility] ([id number]) [address] [place] [address], [address] [place] [address] XR lumbar spine AP/LAT/FLX/E XTon 07-16-2023 XR lumbar spine AP/LAT/FLX/EXT [facility] [address] [place] [address] XRay Report Signed Patient: Barry Albarran MR#: [id number] : 1940 Acct:[id number] Age/Sex: 83 / M ADM Date: 07/16/23 [place] [facility] [place]: Type: [facility] Attending Dr: Angel Carbajal MD Copies to: [...] Rahul Beavers M.D.07/16/2023 11:58 AM Dictation Location: [place] [address] Transcribed By: [facility] 07/16/23 1158 Dictated By: Rahul Beavers DO 07/16/23 1157 Signed By: 07/16/23 1158 Normal [facility] XR cerv spine AP/LAT/FLX/EXT on 06-25-2023 XR cerv spine AP/LAT/FLX/EXT [facility] [place] [address] [place] [address] XRay Report Signed Patient: Barry Albarran MR#: [id number] : 1940 Acct:[id number] Age/Sex: 83 / M ADM Date: 06/25/23 Loc: XD Room: Type: [facility] Attending Dr: Willian Nuñez MD Copies to: [...] Osiel Calvert M.D.06/25/2023 1:59 PM Dictation Location: [place] [address] Transcribed By: JOHNNA 06/25/23 1359 Dictated By: Osiel Calvert II, MD 06/25/23 1357 Signed By: 06/25/23 1359 Normal [facility] Blood hemoglobin measurement (mass/volume)Ordered By: Lynn Garcia on 08-14-2021 Hemoglobin (Bld) [Mass/Vol] 12.0 g/dL 13.0-17.0 [facility] Creatinine [Mass/volume] in UrineOrdered By: Lynn Garcia on 08-14-2021 Creatinine (U) [Mass/Vol] 27.8 mg/dL [facility] Comment on above: No reference range e stablished Creatinine and Glomerular fi ltration rate.predicted panel (S/P/Bld)Ordered By: Lynn Garcia on 08-14-2021 Creatinine [Mass/Vol] 1.35 mg/dL 0.64-1.27 [facility] Erythrocyte distribution wid th Auto (RBC) [Ratio]Ordered By: Lynn Garcia on 08-14-2021 Erythrocyte distribution width (RBC) [Ratio] 14.4 % 12.0-14.8 [facility] Estimated glomerular filtrat ion rate (GFR) non- AmericanOrdered By: Lynn Garcia on 08-14-2021 GFR/1.73 sq M.predicted among non-blacks MDRD (S/P/Bld) [Vol rate/Area] 51 mL/Min [facility] Hematocrit Auto (Bld) [Volum e fraction]Ordered By: Lynn Garcia on 08-14-2021 Hematocrit (Bld) [Volume fraction] 36.0 % 38.8-50.0 [facility] MCH Auto (RBC) [Entitic mass ]Ordered By: Lynn starr 08-14-2021 MCH (RBC) [Entitic mass] 30.0 pg 27.5-35.2 [facility] MCHC Auto (RBC) [Mass/Vol]Or dered By: Lynn Garcia on 08-14-2021 MCHC (RBC) [Mass/Vol] 33.5 g/dL 32.5-35.6 [facility] MCV Auto (RBC) [Entitic vol] Ordered By: Lynn Garcia on 08-14-2021 MCV (RBC) [Entitic vol] 89.8 fL 83.5-101 [facility] No Panel InformationOrdered By: Lynn Garcia on 08-14-2021 Estimated GFR () > 60 mL/Min [facility] Comment on above: GFR estimated refere nce range: According to KDOQI guidelines, <60 ml/min/1.73m2 is sufficient to diagnose a patient with chronic kidney disease. Pharmacy Creatinine Clearance (Chem N/A [facility] Phosphate [Mass/volume] in S jill or PlasmaOrdered By: Lynn Garcia on 08-14-2021 Phosphate [Mass/Vol] 2.5 mg/dL 2.5-4.[address] [facility] Platelet mean volume Auto (B ld) [Entitic vol]Ordered By: Lynn Garcia on 08-14-2021 Platelet mean volume (Bld) [Entitic vol] 7.8 fL 6.6-10.1 [facility] Platelets Auto (Bld) [#/Vol] Ordered By: Lynn Garcia on 08-14-2021 Platelets (Bld) [#/Vol] 206 10*3/uL 150-450 [facility] Protein [Mass/volume] in Uri neOrdered By: Lynn Garcia on 08-14-2021 Protein (U) [Mass/Vol] mg/dL 0-9 [facility] RBC Auto (Bld) [#/Vol]Ordere d By: Lynn Garcia on 08-14-2021 RBC (Bld) [#/Vol] 4.01 10*6/uL 3.90-5.60 [facility] Serum or plasma calcium pedro urement (mass/volume)Ordered By: Lynn Garcia on 08-14-2021 Calcium [Mass/Vol] 9.9 mg/dL 8.2-10.2 [facility] Serum or plasma chloride ira surement (moles/volume)Ordered By: Lynn Garcia on 08-14-2021 Chloride [Moles/Vol] 102 mmol/L 95-[address] [facility] Serum or plasma glucose pedro urement (mass/volume)Ordered By: Lynn Garcia on 08-14-2021 Glucose [Mass/Vol] 94 mg/dL 70-100 [facility] Comment on above: ADA recommended refe rence range Random Glucose Reference Range is dependent on time and content of last meal. Glucose of more than 200 mg/dL in a nonstressed, ambulatory subject supports the diagnosis of Diabetes Mellitus. Serum or plasma intact parat hyroid hormone measurement (mass/volume)Ordered By: Lynn Garcia on 08-14-2021 Parathyrin.intact [Mass/Vol] 67.0 pg/mL 12 [facility] Serum or plasma potassium me asurement (moles/volume)Ordered By: Lynn Garcia on 08-14-2021 Potassium [Moles/Vol] 4.4 mmol/L 3.5-5.1 [facility] Serum or plasma sodium measu rement (moles/volume)Ordered By: Lynn Garcia on 08-14-2021 Sodium [Moles/Vol] 140 mmol/L 136-146 [facility] Serum or plasma total carbon dioxide measurement (moles/volume)Ordered By: Lynn Garcia on 08-14-2021 CO2 [Moles/Vol] 24.0 mmol/L 22.0-30.0 [facility] Serum or plasma urea nitroge n measurement (mass/volume)Ordered By: Lynn Garcia on 08-14-2021 Urea nitrogen [Mass/Vol] 18 mg/dL 9- [facility] Urine protein/creatinine rat ioOrdered By: Lynn Garcia on 08-14-2021 Protein/Creatinine (U) [Ratio] TNP [facility] Comment on above: Test not performed WBC Auto (Bld) [#/Vol]Ordere d By: Lynn Garcia on 08-14-2021 WBC (Bld) [#/Vol] 4.9 10*3/uL 4.1-10.5 [facility] CBC with Diffon 05-10-2021 AB IMMATURE NEUT 0.03 K/UL Normal 0.0-0.1 [facility] ABS BASO 0.02 K/UL Normal 0.00-0.22 [facility] ABS EOS 0.13 K/UL Normal 0-0.45 [facility] ABS NEUTROPHILS 3.50 K/UL Normal 1.8-7.[address] [facility] ABS.NEUT.CALCULATED 3.50 K/UL Normal [facility] Comment on above: Result Comment: Perf [place]med at [facility] [address] [facility] [address] Basophils/100 WBC (Bld) 0.40 % Normal 0-1 [facility] DIFF TYPE AUTO DIFF Normal [facility] Eosinophils/100 WBC (Bld) 2.40 % Normal 0-3 [facility] Erythrocyte distribution width (RBC) [Ratio] 12.6 % Normal 11.7-15.0 [facility] Hematocrit (Bld) [Volume fraction] 36.2 % Low 41-50 [facility] Hemoglobin (Bld) [Mass/Vol] 12.2 g/dL Low 13.5-16.5 [facility] Lymphocytes (Bld) [#/Vol] 1.46 10*3/uL Normal 1.2-3.2 [facility] Lymphocytes/100 WBC (Bld) 26.40 % Normal 20-40 [facility] MCH (RBC) [Entitic mass] 31.0 pg Normal 26-34 [facility] MCHC 33.7 % Normal 31-37 [facility] MCV (RBC) [Entitic vol] 92.1 fL Normal 80-100 [facility] MEAN PLT VOL 9.3 CU Normal 7.0-12.6 [facility] Monocytes (Bld) [#/Vol] 0.38 10*3/uL Normal 0-0.8 [facility] Monocytes/100 WBC (Bld) 6.90 % Normal 0-8 [facility] Neutrophils/100 WBC (Bld) 0.50 % Normal 0.0-1.0 [facility] Neutrophils/100 WBC (Bld) 63.40 % Normal 50-70 [facility] Platelets (Bld) [#/Vol] 208 10*3/uL Normal 150-450 [facility] RBC (Bld) [#/Vol] 3.93 10*6/uL Low 4.5-5.5 [facility] RDW-SD 43.1 FL Normal 37.0-54.0 [facility] WBC (Bld) [#/Vol] 5.5 10*3/uL Normal 4.5-11.0 [facility] COMPREHENSIVE METABOLIC PANE Dima 07-16-2020 Anion gap [Moles/Vol] 8 mmol/L Normal 0-19 [facility] AST [Catalytic activity/Vol] 16 U/L Normal 5-40 [facility] Chloride [Moles/Vol] 104 mmol/L Normal 97-107 [facility] Albumin [Mass/Vol] 4.3 g/dL Normal 3.5-5.0 [facility] Albumin/Globulin [Mass ratio] 1.4 {ratio} Low 1.5-3.0 [facility] ALP [Catalytic activity/Vol] 70 U/L Normal 35-125 [facility] ALT [Catalytic activity/Vol] 9 U/L Normal 5-40 [facility] Bilirubin [Mass/Vol] 0.3 mg/dL Normal 0.1-1.2 [facility] Calcium [Mass/Vol] 10.6 mg/dL High 8.5-10.4 [facility] CO2 [Moles/Vol] 28 mmol/L Normal 24-[address] [facility] Creatinine [Mass/Vol] 1.4 mg/dL Normal 0.4-1.6 [facility] ESTIMATED GFR 52 mL/min/1.73 m2 Normal [facility] Comment on above: Result Comment: GFR ml/min/1.73m2 Stage ----- 90 1 60-89 2 30-59 3 15-29 4 <15 5 For -Americans, multiply EGFR result by 1.210 Calculation not validated for patients under 18 years of age. Performed at [facility] [place] [address] [address] [facility] [address] Globulin (S) [Mass/Vol] 3.0 g/dL Normal 1.9-3.7 [facility] Glucose [Mass/Vol] 110 mg/dL High 65-99 [facility] Potassium [Moles/Vol] 4.2 mmol/L Normal 3.4-5.1 [facility] Protein [Mass/Vol] 7.3 g/dL Normal 5.9-7.9 [facility] Sodium [Moles/Vol] 140 mmol/L Normal 133-145 [facility] Urea nitrogen [Mass/Vol] 30 mg/dL High 8-25 [facility] Urea nitrogen/Creatinine [Mass ratio] 21.4 mg/mg High 8-21 [facility] EKGon 07-16-2020 Electrocardiogram EKG Ventricular Rate : 82 BPM Atrial Rate : 82 BPM P-R Interval : 170 ms QRS Duration : 100 ms Q-T Interval : 360 ms QTC Calculation(Bazett) : 420 ms Calculated P [place] : -4 degrees Calculated R [place] : -10 degrees Calculated T [place] : 57 degrees Diagnosis:Sinus rhythm with occasional Premature ventricular complexes Otherwise normal ECG No previous ECGs available Confirmed by SOPHIA CANCINO ([id number]) on 07/18/2020 11:06:00 PM [facility] SARS-CoV-2,INFLUENZA A/B NUC LEIC ACID TESTon 07-16-2020 EUA DISCLAIMER Normal [facility] Comment on above: Result Comment: This test [...] is terminated or revoked sooner. Performed at [facility] [address] [address] [facility] [address] FLU A by PCR Negative Normal [facility] FLU B by PCR Negative [facility] SARS-CoV-2 (COVID-19) RNA NAMRATA+probe Ql (Unsp spec) Negative Normal NEG [facility] UA-REFLEX TO CULTUREon 07-16 RBC NONE SEEN Normal 0-3 [facility] Urinalysis dipstick W Reflex Microscopic panel (U) MANUAL MICROSCOPIC URINES Normal [facility] WBC NONE SEEN Normal 0-3 [facility] Bacteria identified Cx Nom (U) Normal [facility] Comment on above: Result Comment: CULT URE NOT INDICATED Performed at [facility] [place] [address] [address] [facility] [address] BILI Negative Normal NEG [facility] Clarity (U) CLEAR Normal [facility] Color (U) YELLOW Normal [facility] GLUC Negative Normal NEG [facility] Hemoglobin Ql (U) Negative Normal NEG [facility] KET Negative Normal NEG [facility] LEUK Negative Normal NEG [facility] NIT Negative Normal NEG [facility] pH (U) 6.5 [pH] Normal 4.6-8.0 [facility] PROT Negative Normal NEG [facility] SP GRAV,URINE 1.015 Normal 1.005-1.030 [facility] URO 0.2 MG/DL Normal 0-1.0 [facility] CBC (INCLUDES DIFF/PLT)on Basophils (Bld) [#/Vol] 0.031 10*3/uL Normal 0-200 [facility] Comment on above: Performed By: #### 4 57, 6399 #### [facility] [place] [address] Speech Therapist: Catrachito Mata MD Basophils/100 WBC (Bld) 0.6 % Normal [facility] Comment on above: Performed By: #### 4 57, 6399 #### [facility] [place] [address] Speech Therapist: Catrachito Mata MD Eosinophils (Bld) [#/Vol] 0.138 10*3/uL Normal 15-500 [facility] Comment on above: Performed By: #### 4 57, 6399 #### [facility] [place] [address] Speech Therapist: Catrachito Mata MD Eosinophils/100 WBC (Bld) 2.7 % Normal [facility] Comment on above: Performed By: #### 4 57, 6399 #### [facility] [place] [address] Speech Therapist: Catrachito Mata MD Erythrocyte distribution width (RBC) [Ratio] 13.6 % Normal 11.0-15.0 [facility] Comment on above: Performed By: #### 4 57, 6399 #### [facility] [place] [address] Speech Therapist: Catrachito Mata MD Hematocrit (Bld) [Volume fraction] 33.9 % Low 38.5-50.0 [facility] Comment on above: Performed By: #### 4 57, 6399 #### [facility] [place] [address] Speech Therapist: Catrachito Mata MD Hemoglobin (Bld) [Mass/Vol] 11.8 g/dL Low 13.2-17.1 [facility] Comment on above: Performed By: #### 4 57, 6399 #### [facility] [place] [address] Speech Therapist: Catrachito Mata MD Lymphocytes (Bld) [#/Vol] 1.239 10*3/uL Normal 850-3900 [facility] Comment on above: Performed By: #### 4 57, 6399 #### [facility] [place] [address] Speech Therapist: Catrachito Mata MD Lymphocytes/100 WBC (Bld) 24.3 % Normal [facility] Comment on above: Performed By: #### 4 57, 6399 #### [facility] [place] [address] Speech Therapist: Catrachito Mata MD MCH (RBC) [Entitic mass] 31.8 pg Normal 27.0-33.0 [facility] Comment on above: Performed By: #### 4 57, 6399 #### [facility] [place] [address] Speech Therapist: Catrachito Mata MD MCHC (RBC) [Mass/Vol] 34.8 g/dL Normal 32.0-36.[address] [facility] Comment on above: Performed By: #### 4 57, 6399 #### [facility] of [place] [id number] Speech Therapist: Catrachito Mata MD MCV (RBC) [Entitic vol] 91.4 fL Normal 80.0-100.0 [facility] Comment on above: Performed By: #### 4 57, 6399 #### [facility] [place] [address] Speech Therapist: Catrachito Mata MD Monocytes (Bld) [#/Vol] 0.469 10*3/uL Normal 200-950 [facility] Comment on above: Performed By: #### 4 57, 6399 #### [facility] [place] [address] Speech Therapist: Catrachito Mata MD Monocytes/100 WBC (Bld) 9.2 % Normal [facility] Comment on above: Performed By: #### 4 57, 6399 #### [facility] [place] [address] Speech Therapist: Catrachito Mata MD Neutrophils (Bld) [#/Vol] 3.223 10*3/uL Normal 6937-2837 [facility] Comment on above: Performed By: #### 4 57, 6399 #### [facility] [place] [address] Speech Therapist: Catrachito Mata MD Neutrophils/100 WBC (Bld) 63.2 % Normal [facility] Comment on above: Performed By: #### 4 57, 6399 #### [facility] [place] [address] Speech Therapist: Catrachito Mata MD Platelet mean volume (Bld) [Entitic vol] 10.0 fL Normal 7.5-12.5 [facility] Comment on above: Performed By: #### 4 57, 6399 #### [facility] [place] [address] Speech Therapist: Catrachito Mata MD Platelets (Bld) [#/Vol] 211 10*3/uL Normal 140-400 [facility] Comment on above: Performed By: #### 4 57, 6399 #### [facility] of [address], [address] [place] [address] Speech Therapist: Catrachito Mata MD RBC (Bld) [#/Vol] 3.71 10*6/uL Low 4.20-5.80 [facility] Comment on above: Performed By: #### 4 57, 6399 #### [facility] of [address], [address] [place] [address] Speech Therapist: Catrachito Mata MD WBC (Bld) [#/Vol] 5.1 10*3/uL Normal 3.8-10.8 [facility] Comment on above: Performed By: #### 4 57, 6399 #### [facility] of [address], [address] [place] [address] Speech Therapist: Catrachito Mata MD FERRITINon 05-31-2020 Ferritin [Mass/Vol] 247 ng/mL Normal 24-380 [facility] Comment on above: Performed By: #### 4 57, 6399 #### [facility] of [address], [address] [place] [address] Speech Therapist: Catrachito Mata MD TRANSFERRINon 05-31-2020 Transferrin [Mass/Vol] 229 mg/dL Normal 188-341 [facility] Comment on above: Performed By: #### 4 57, 6399 #### [facility] [place] [address] Speech Therapist: Catrachito Mata MD COVID-19 Positive/Negativeon 03-16-2020 COVID-19 Positive/Negative Negative Negative [facility] Comment on above: Testing for SARS-CoV -2 by RT-PCRThis test was developed and its performance characteristics determined by [employer] ([employer]) and validated at the [facility]. This test has not been FDA [...] Otheron 03-16-2020 Coronavirus 2019 PCR Interp N/A [facility] Automated basophil %on 03-12 Basophils/100 WBC (Bld) 0.7 % F [facility] Automated basophil counton 0 03-12-2020 Basophils (Bld) [#/Vol] 0.0 10*3/uL 0.0-0.2 [facility] Automated blood lymphocyte c ount (number/volume)on 03-12-2020 Lymphocytes (Bld) [#/Vol] 1.1 10*3/uL 1.00-4.8 [facility] Automated blood lymphocyte c ount as percentage of total leukocyteson 03-12-2020 Lymphocytes/100 WBC (Bld) 25.0 % [facility] Automated blood monocyte cou nton 03-12-2020 Monocytes (Bld) [#/Vol] 0.5 10*3/uL 0.0-0.8 [facility] Automated blood platelet cou nt (count/volume)on 03-12-2020 Platelets (Bld) [#/Vol] 196 10*3/uL 150-450 [facility] Automated blood platelet ira n volume measurementon 03-12-2020 Platelet mean volume (Bld) [Entitic vol] 7.9 fL 6.6-10.1 [facility] Automated eosinophil %on Eosinophils/100 WBC (Bld) 3.3 % [facility] Automated eosinophil counton 03-12-2020 Eosinophils (Bld) [#/Vol] 0.1 10*3/uL 0.0-0.45 [facility] Automated erythrocyte distri bution width ratioon 03-12-2020 Erythrocyte distribution width (RBC) [Ratio] 13.8 % 12.0-14.8 [facility] Automated erythrocyte mean c orpuscular hemoglobin (mass per erythrocyte)on 03-12-2020 MCH (RBC) [Entitic mass] 31.1 pg 27.5-35.2 [facility] Automated erythrocyte mean c orpuscular hemoglobin concentration measurement (mass/volon 03-12-2020 MCHC (RBC) [Mass/Vol] 34.1 g/dL 32.5-35.6 [facility] Automated erythrocyte mean c orpuscular volumeon 03-12-2020 MCV (RBC) [Entitic vol] 91.3 fL 83.5-101 [facility] Automated monocyte %on 03-12 Monocytes/100 WBC (Bld) 10.8 % F [facility] Automated neutrophil %on Neutrophils/100 WBC (Bld) 60.2 % [facility] Blood erythrocytes automated count (number/volume)on 03-12-2020 RBC (Bld) [#/Vol] 3.98 10*6/uL 3.90-5.60 [facility] Blood hemoglobin measurement (mass/volume)on 03-12-2020 Hemoglobin (Bld) [Mass/Vol] 12.4 g/dL 13.0-17.0 [facility] Blood leukocytes automated c ount (number/volume)on 03-12-2020 WBC (Bld) [#/Vol] 4.5 10*3/uL 4.5-11.0 [facility] Blood neutrophil count by au tomated method (number/volume)on 03-12-2020 Neutrophils (Bld) [#/Vol] 2.7 10*3/uL 1.8-7.7 [facility] Estimated glomerular filtrat ion rate (GFR) non- Americanon 03-12-2020 GFR/1.73 sq M predicted among non-blacks MDRD (S/P/Bld) [Vol rate/Area] 42 mL/min/{1.73_m2} [facility] Hematocrit [Volume Fraction] of Blood by Automated counton 03-12-2020 Hematocrit (Bld) [Volume fraction] 36.3 % 38.8-50.0 [facility] Otheron 03-12-2020 GFR/1.73 sq M.predicted MDRD (S/P/Bld) [Vol rate/Area] 51 mL/min/{1.73_m2} [facility] Comment on above: GFR estimated refere nce range: According to KDOQI guidelines, <60 ml/min/1.73m2 is sufficient to diagnose a patient with chronic kidney disease. Nucleated RBC/100 WBC (Bld) [Ratio] 0.2 % 0-0.5 [facility] Creatinine Clearance (Chem N/A [facility] Serum or plasma calcium pedro urement (mass/volume)on 03-12-2020 Calcium [Mass/Vol] 10.1 mg/dL 8.2-10.2 [facility] Serum or plasma chloride ira surement (moles/volume)on 03-12-2020 Chloride [Moles/Vol] 101 mmol/L 95-114 [facility] Serum or plasma creatinine m easurement with calculation of estimated glomerular filtron 03-12-2020 Creatinine [Mass/Vol] 1.59 mg/dL 0.64-1.27 [facility] Serum or plasma glucose pedro urement (mass/volume)on 03-12-2020 Glucose [Mass/Vol] 93 mg/dL 70-100 [facility] Comment on above: ADA recommended refe rence rangeRandom Glucose Reference Range is dependent on time and content of last meal. Glucose of more than 200 mg/dL in a nonstressed, ambulatory subject supports the diagnosis of Diabetes Mellitus. Serum or plasma potassium me asurement (moles/volume)on 03-12-2020 Potassium [Moles/Vol] 4.1 mmol/L 3.5-5.1 [facility] Serum or plasma sodium measu rement (moles/volume)on 03-12-2020 Sodium [Moles/Vol] 137 mmol/L 136-146 [facility] Serum or plasma total carbon dioxide measurement (moles/volume)on 03-12-2020 CO2 [Moles/Vol] 24.3 mmol/L 22.0-30.0 [facility] Serum or plasma urea nitroge n measurement (mass/volume)on 03-12-2020 Urea nitrogen [Mass/Vol] 26 mg/dL 11-29 [facility] MAGNESIUMon 02-09-2020 Magnesium [Mass/Vol] 2.0 mg/dL Normal 1.5-2.5 [facility] Comment on above: Performed By: #### 7 18, 622, 905 #### [facility], [address] [place] [address] Speech Therapist: Catrachito Mata MD PHOSPHATE ( PHOSPHORUS)on 02-09-2020 Phosphate [Mass/Vol] 2.8 mg/dL Normal 2.1-4.3 [facility] Comment on above: Performed By: #### 7 18, 652, 905 #### [facility], [address] [place], [place] [id number] Speech Therapist: Catrachito Mata MD URIC ACIDon 02-09-2020 Urate [Mass/Vol] 7.2 mg/dL Normal 4.0-8.0 [facility] Comment on above: Result Comment: Ther apeutic target for gout patients: <6.0 mg/dL NO COLLECTION DATE RECEIVED. WE HAVE USED THE DATE THE SPECIMEN WAS RECEIVED BY THIS LABORATORY THE COLLECTION DATE. IF THIS IS INCORRECT, PLEASE CONTACT CLIENT SERVICES. PHONE NUMBER: [phone] Performed By: #### 7 18, 654, [phone] #### [facility], [address] [place], [place] [id number] Speech Therapist: Catrachito aMta MD URIC ACIDon 08-05-2019 Urate [Mass/Vol] 7.2 mg/dL Normal 4.0-8.0 [facility] Comment on above: Result Comment: Ther apeutic target for gout patients: <6.0 mg/dL NO COLLECTION DATE RECEIVED. WE HAVE USED THE DATE THE SPECIMEN WAS RECEIVED BY THIS LABORATORY THE COLLECTION DATE. IF THIS IS INCORRECT, PLEASE CONTACT CLIENT SERVICES. PHONE NUMBER: [phone] Performed By: #### 9 05 #### [facility], [address] [place] [address] Speech Therapist: Catrachito Mata MD Vital Signs Date Time Vital Sign Value Performing Clinician Facility 08-19-2023 14:07-0400 Body height 182.25 cm METHODS EXAMINER Robertaganesh Patino Work Phone: [facility] 08-19-2023 14:07-0400 Body mass index (BMI) [Ratio] 28.3 kg/m2 METHODS EXAMINER Roberta Cherry Work Phone: [facility] 08-19-2023 14:07-0400 Body temperature 97.5 [degF] METHODS EXAMINER Robertaganesh Patino Work Phone: [facility] 08-19-2023 14:07-0400 Body weight 93.89 kg METHODS EXAMINER Robreta Cherry Work Phone: [facility] 08-19-2023 14:07-0400 Diastolic blood pressure 76 mm[Hg] METHODS EXAMINERAbel Patino Work Phone: [facility] 08-19-2023 14:07-0400 Heart rate 96 /min METHODS EXAMINER Robertaganesh Davalossler Work Phone: [facility] 08-19-2023 14:07-0400 Respiratory rate 16 /min METHODS EXAMINERAbel Davalossler Work Phone: [facility] 08-19-2023 14:07-0400 SaO2% (BldA) [Mass fraction] 98 % METHODS EXAMINERAbel Patino Work Phone: [facility] 08-19-2023 14:07-0400 Systolic blood pressure 124 mm[Hg] METHODS EXAMINERAbel Davalossler Work Phone: [facility] 07-21-2023 10:35-0400 Diastolic blood pressure 71 mm[Hg] METHODS EXAMINER Robertaganesh Davalossler Work Phone: [facility] 07-21-2023 10:35-0400 Heart rate 84 /min METHODS EXAMINERAbel Davalossler Work Phone: [facility] 07-21-2023 10:35-0400 Respiratory rate 16 /min METHODS EXAMINERAbel Patino Work Phone: [facility] 07-21-2023 10:35-0400 SaO2% (BldA) [Mass fraction] 97 % LINDA Patino Work Phone: [facility] 07-21-2023 10:35-0400 Systolic blood pressure 126 mm[Hg] METHODS EXAMINERAbel Patino Work Phone: [facility] 07-21-2023 10:02-0400 Inhaled oxygen flow rate 3 L/min METHODS EXAMINERAbel Patino Work Phone: [facility] 07-21-2023 09:20-0400 Body height 182.88 cm LINDA Patino Work Phone: [facility] 07-21-2023 09:20-0400 Body weight 93.44 kg LINDA Patino Work Phone: [facility] 06-25-2023 10:14-0400 Body height 185.42 cm METHODS EXAMINERAbel Patino Work Phone: [facility] 06-25-2023 10:14-0400 Body mass index (BMI) [Ratio] 28 kg/m2 LINDA Patino Work Phone: [facility] 06-25-2023 10:14-0400 Body weight 96.61 kg LINDA Patino Work Phone: [facility] 02-18-2023 14:00-0500 Body height 185.42 cm Kee[employer]na [employer] Other [facility] [employer] Other 02-18-2023 14:00-0500 Body mass index (BMI) [Ratio] 27.86 kg/m2 Keeckerarianna [employer] Other [employer] Other 02-18-2023 14:00-0500 Body temperature 98.8 [degF] Aziz Bakanastasias Other [employer] Other 02-18-2023 14:00-0500 Body weight 95.8 kg Azarianna Bakhous Other [employer] Other 02-18-2023 14:00-0500 Diastolic blood pressure 81 mm[Hg] Aziz Bakhous Other [employer] Other 02-18-2023 14:00-0500 Respiratory rate 18 /min Cristofer Walliss Other [employer] Other 02-18-2023 14:00-0500 SaO2% (BldA) [Mass fraction] 97 % Cristofer Bakhous Other [employer] Other 02-18-2023 14:00-0500 Systolic blood pressure 144 mm[Hg] Aziz Bakhous Other [employer] Other 08-26-2022 15:00-0400 Body height 185.42 cm Cristofer Bakanastasias Other [employer] Other 08-26-2022 15:00-0400 Body mass index (BMI) [Ratio] 26.91 kg/m2 Azarianna Bakhous Other [employer] Other 08-26-2022 15:00-0400 Body temperature 97.3 [degF] Aziz Bakhous Other [employer] Other 08-26-2022 15:00-0400 Body weight 92.53 kg Azarianna Bakhous Other [employer] Other 08-26-2022 15:00-0400 Diastolic blood pressure 73 mm[Hg] Azarianna Walliss Other [employer] Other 08-26-2022 15:00-0400 Respiratory rate 18 /min Cristofer Walliss Other [employer] Other 08-26-2022 15:00-0400 SaO2% (BldA) [Mass fraction] 98 % Cristofer Odonnell Other [employer] Other 08-26-2022 15:00-0400 Systolic blood pressure 119 mm[Hg] Cristofer Walliss Other [employer] Other 06-10-2022 14:40-0400 Body height 185.42 cm Willian Nuñez Other [employer] Other 06-10-2022 14:40-0400 Body mass index (BMI) [Ratio] 27.7 kg/m2 Willian Nuñez Other [employer] Other 06-10-2022 14:40-0400 Body weight 95.26 kg Willian Nuñez Other [employer] Other 06-10-2022 14:40-0400 Diastolic blood pressure 62 mm[Hg] Willian Nuñez Other [employer] Other 06-10-2022 14:40-0400 Systolic blood pressure 170 mm[Hg] Willian Nuñez Other [employer] Other 02-18-2022 17:20-0500 Body height 185.42 cm Cristofer Walliss Other [employer] Other 02-18-2022 17:20-0500 Body mass index (BMI) [Ratio] 27.73 kg/m2 Cristofer Odonnell Other [employer] Other 02-18-2022 17:20-0500 Body temperature 96.9 [degF] Cristofer Odonnell Other [employer] Other 02-18-2022 17:20-0500 Body weight 95.35 kg Cristofer Odonnell Other [employer] Other 02-18-2022 17:20-0500 Diastolic blood pressure 89 mm[Hg] Cristofer Odonnell Other [employer] Other 02-18-2022 17:20-0500 Respiratory rate 18 /min Cristofer Odonnell Other [employer] Other 02-18-2022 17:20-0500 SaO2% (BldA) [Mass fraction] 97 % Cristofer Odonnell Other [employer] Other 02-18-2022 17:20-0500 Systolic blood pressure 166 mm[Hg] Cristofer Odonnell Other [employer] Other 10-29-2021 12:20-0400 Body height 185.42 cm Willian Nuñez Other [employer] Other 10-29-2021 12:20-0400 Body mass index (BMI) [Ratio] 27.7 kg/m2 Willian Nuñez Other [employer] Other 10-29-2021 12:20-0400 Body weight 95.26 kg Willian Nuñez Other [employer] Other 08-21-2021 16:00-0400 Body height 185.42 cm Cristofer Walliss Other [employer] Other 08-21-2021 16:00-0400 Body mass index (BMI) [Ratio] 27.73 kg/m2 Azarianna Walliss Other [employer] Other 08-21-2021 16:00-0400 Body temperature 96.5 [degF] Cristofer Walliss Other [employer] Other 08-21-2021 16:00-0400 Body weight 95.35 kg Cristofer Walliss Other [employer] Other 08-21-2021 16:00-0400 Diastolic blood pressure 71 mm[Hg] Azarianna Walliss Other [employer] Other 08-21-2021 16:00-0400 Respiratory rate 18 /min Cristofer Walliss Other [employer] Other 08-21-2021 16:00-0400 SaO2% (BldA) [Mass fraction] 96 % Cristofer Walliss Other [employer] Other 08-21-2021 16:00-0400 Systolic blood pressure 125 mm[Hg] Azarianna Walliss Other [employer] Other 07-30-2021 12:00-0400 Body height 185.42 cm Willian Nuñez Other [employer] Other 07-30-2021 12:00-0400 Body mass index (BMI) [Ratio] 28.76 kg/m2 Willian Nuñez Other [employer] Other 07-30-2021 12:00-0400 Body weight 98.88 kg Willian Nuñez Other [employer] Other 07-15-2021 11:00-0400 Body height 185.42 cm Willian Nuñez Other [employer] Other 07-15-2021 11:00-0400 Body mass index (BMI) [Ratio] 27.84 kg/m2 Willian Nuñez Other [employer] Other 07-15-2021 11:00-0400 Body weight 95.71 kg Willian Nuñez Other [employer] Other 04-25-2021 14:00-0500 Body height 185.42 cm Willian Nuñez Other [employer] Other 04-25-2021 14:00-0500 Body mass index (BMI) [Ratio] 27.84 kg/m2 Willian Nuñez Other [employer] Other 04-25-2021 14:00-0500 Body weight 95.71 kg Willian Nuñez Other [employer] Other 03-14-2021 15:40-0500 Body height 185.42 cm Willian Nuñez Other [employer] Other 03-14-2021 15:40-0500 Body mass index (BMI) [Ratio] 27.84 kg/m2 Willian Nuñez Other [employer] Other 03-14-2021 15:40-0500 Body weight 95.71 kg Willian Nuñez Other [employer] Other 12-13-2020 15:40-0400 Body height 185.42 cm Willian Nuñez Other [employer] Other 12-13-2020 15:40-0400 Body mass index (BMI) [Ratio] 28.36 kg/m2 Willian Nuñez Other [employer] Other 12-13-2020 15:40-0400 Body weight 97.52 kg Willian Nuñez Other [employer] Other 12-13-2020 15:40-0400 Diastolic blood pressure 75 mm[Hg] Willian Nuñez Other [employer] Other 12-13-2020 15:40-0400 Systolic blood pressure 130 mm[Hg] Willian Nuñez Other [employer] Other Encounters Encounter Date Encounter Type Care Provider Facility Start: 12-25-2023 End: 12-28-2023 Refill Latasha Gutierrez APRN-[facility]YRA Work Phone: [facility] Comment on above: Enlarged prostate wi th urinary obstruction Start: 10-27-2023 End: 10-27-2023 ambulatory [facility] Start: 10-22-2023 End: 10-22-2023 ambulatory [facility] Work Phone: Start: 10-22-2023 End: 10-22-2023 Patient encounter procedure [facility] Physician [facility] Work Phone: Start: 10-14-2023 End: 10-14-2023 ambulatory LINDA Patino Work Phone: [facility] Work Phone: Start: 10-14-2023 End: 10-14-2023 Patient encounter procedure LINDA Patino Work Phone: [facility] Work Phone: Start: 10-14-2023 Non-patient / Non-visit [facility] Work Phone: Start: 10-07-2023 Patient encounter status Latasha Gutierrez METHODS EXAMINER-SORT WORKER Work Phone: [facility] Start: 10-07-2023 End: 10-07-2023 [facility] Start: 09-24-2023 End: 09-24-2023 ambulatory METHODS EXAMINER Roberta Patino Work Phone: [facility] Work Phone: Start: 09-24-2023 End: 09-24-2023 Patient encounter procedure LINDA Patino Work Phone: [facility] Physician [facility] Work Phone: Start: 09-18-2023 End: 09-18-2023 ambulatory LINDA Patino Work Phone: [facility] Work Phone: Start: 09-18-2023 End: 09-18-2023 Patient encounter procedure LINDA Saucedoith Cherry Work Phone: [facility] Work Phone: Start: 08-31-2023 End: 08-31-2023 ambulatory ROBERTA PATINO [facility] Start: 08-26-2023 Non-patient / Non-visit METHODS EXAMINER Negro Patino Work Phone: [facility] Physician [facility] Work Phone: Start: 08-19-2023 End: 08-19-2023 ambulatory LINDA Patino Work Phone: [facility] Work Phone: Start: 08-19-2023 End: 08-19-2023 Patient encounter procedure LINDA Granados Cherry Work Phone: [facility] Work Phone: Start: 08-18-2023 End: 08-18-2023 ambulatory LINDA Saucedoganesh Hager Cherry Work Phone: [facility] Work Phone: Start: 08-18-2023 End: 08-18-2023 Patient encounter procedure METHODS EXAMINERAbel Granados Cherry Work Phone: [facility] Work Phone: Start: 08-17-2023 End: 08-17-2023 ambulatory [facility] Start: 07-21-2023 End: 07-21-2023 ambulatory Angel Carbajal Facility:[facility] Start: 07-21-2023 Non-patient / Non-visit LINDA Negro liam Patino Work Phone: [facility] Work Phone: Start: 07-21-2023 End: 07-21-2023 Admission to same day surgery center METHODS EXAMINER Roberta Cherry Work Phone: [facility] Work Phone: Start: 07-16-2023 End: 07-16-2023 ambulatory Angel Carbajal Facility:[facility] Start: 07-16-2023 End: 07-16-2023 ambulatory LINDA Saucedoith Madan Patino Work Phone: [facility] Work Phone: Start: 07-16-2023 End: 07-16-2023 Patient encounter procedure LINDA Granados Cherry Work Phone: [facility] Work Phone: Start: 06-25-2023 End: 06-25-2023 ambulatory Willian Nuñez Facility:[facility] Start: 06-25-2023 End: 06-25-2023 ambulatory METHODS EXAMINER Roberta Patino Work Phone: [facility] Work Phone: Start: 06-25-2023 End: 06-25-2023 Patient encounter procedure METHODS EXAMINER Roberta Patino Work Phone: [facility] Work Phone: Start: 05-29-2023 Refill Rajani Thorne CNA [facility] Comment on above: Essential hypertensi on, benign Start: 05-14-2023 Telephone encounter Rajani Thorne CNA [facility] Comment on above: Care Management Start: 04-06-2023 Refill Roberta blount METHODS EXAMINER-SORT WORKER Work Phone: [facility] Start: 03-12-2023 Orders Only Roberta blount METHODS EXAMINER-SORT WORKER Work Phone: [facility] Comment on above: Dermatitis Start: 02-25-2023 End: 02-25-2023 ambulatory ROBERTA PATINO [facility] Start: 02-18-2023 End: 02-18-2023 ambulatory Aziz Bakhous Other Located Within [facility] [employer] Other Start: 02-18-2023 Office outpatient vi sit 25 minutes Aziz Bakhous [facility] Start: 08-26-2022 End: 08-26-2022 ambulatory Aziz Bakhous Other Located [facility] [employer] Other Start: 08-26-2022 Office outpatient vi sit 15 minutes Aziz Bakhous [facility] Start: 06-10-2022 End: 06-10-2022 ambulatory Willian Nuñez Other Located [facility] [employer] Other Start: 06-10-2022 Office outpatient vi sit 15 minutes Willian Nuñez [facility] Start: 02-18-2022 End: 02-18-2022 ambulatory Aziz Bakhous Other [employer] Other Start: 02-18-2022 Office outpatient vi sit 15 minutes Aziz Bakhous [facility] Start: 02-04-2022 End: 02-04-2022 ambulatory METHODS EXAMINER Roberta A Cherry Work Phone: [facility] Work Phone: Start: 02-04-2022 End: 02-04-2022 Patient encounter procedure METHODS EXAMINER Roberta [facility] Start: 10-29-2021 End: 10-29-2021 ambulatory Willian Nuñez Other [facility] [employer] Other Start: 10-29-2021 Office outpatient vi sit 15 minutes Willian Nuñez [facility] Start: 10-29-2021 End: 10-29-2021 Patient encounter procedure LINDA Saucedoith Cherry [facility] Start: 09-24-2021 Encounter for genera l adult medical examination without abnormal findings ROBERTAGANESH PATINO [facility] Start: 09-24-2021 Patient encounter procedure Roberta Patino METHODS EXAMINER-SORT WORKER Work Phone: [facility] Start: 08-21-2021 End: 08-21-2021 ambulatory Aziz Bakhous Other [employer] Other Start: 08-21-2021 Office outpatient vi sit 15 minutes Aziz Bakhous [facility] Neph[facility] Start: 08-14-2021 End: 08-14-2021 Patient encounter procedure METHODS EXAMINER Roberta Cherry Work Phone: [facility] Start: 07-30-2021 End: 07-30-2021 ambulatory Willian Nuñez Other [employer] Other Start: 07-30-2021 Postop follow up vis it related to original px Willian Nuñez [facility] Start: 07-15-2021 (Post-Op) Post-Op Willian Nuñez [facility] Start: 07-15-2021 End: 07-15-2021 ambulatory Willian Nuñez Other [place] [employer] Other Start: 07-08-2021 End: 07-08-2021 ambulatory Willian Nuñez Other [place] [employer] Other Start: 07-08-2021 Telephone encounter Willian Nuñez [facility] Start: 07-01-2021 Admission to [facility] Willian Nuñez [facility] Start: 07-01-2021 End: 07-01-2021 ambulatory Willian Nuñez Other [place] [employer] Other Start: 06-28-2021 End: 06-28-2021 ambulatory Lynn Garcia Other [employer] [employer] Other Start: 06-28-2021 Telephone encounter Lynn Garcia [facility] Nephrology Start: 04-25-2021 End: 04-25-2021 ambulatory Willian Nuñez Other [place] [employer] Other Start: 04-25-2021 Office outpatient vi sit 15 minutes Willian Nuñez [facility] Start: 04-10-2021 End: 04-10-2021 ambulatory Willian Nuñez Other [place] [employer] Other Start: 04-10-2021 Telephone encounter Willian Nuñez [facility] Start: 03-14-2021 End: 03-14-2021 ambulatory Willian Nuñez Other [place] [employer] Other Start: 03-14-2021 Office outpatient vi sit 15 minutes Willian Nuñez [facility] Start: 02-26-2021 End: 02-26-2021 ambulatory Lynn Garcia Other Loc[facility] [employer] Other Start: 02-26-2021 Telephone encounter Lynn Garcia [facility] Start: 12-13-2020 Office outpatient vi sit 15 minutes Willian BECKFORD [facility] Start: 03-16-2020 End: 03-16-2020 Patient encounter procedure Jared Petty -Pre-Surgical Testing Start: 03-12-2020 End: 03-12-2020 Patient encounter procedure Jared Petty -Pre-Surgical Testing Start: 02-14-2020 End: 02-14-2020 Patient encounter procedure Jared Petty -[facility] [place] Procedures Date Procedure Procedure Detail Performing Clinician Start: 10-07-2023 Adult depression scr eening assessment Latasha Gutierrez METHODS EXAMINER-SORT WORKER Work Phone: Start: 07-21-2023 Injection of local anesthetic into sacroiliac joint METHODS EXAMINERAbel Patino Work Phone: Start: 07-16-2023 X-ray of lumbar spin e, four views METHODS EXAMINER Roberta Davalossler Work Phone: Start: 06-25-2023 X-ray of cervical spine METHODS EXAMINER Roberta Patino Work Phone: Start: 09-26-2022 Adult depression scr eening assessment Roberta Patino METHODS EXAMINER-SORT WORKER Work Phone: Start: 02-04-2022 X-ray of cervical spine METHODS EXAMINER Roberta Davalossler Work Phone: Start: 10-29-2021 X-ray of cervical spine METHODS EXAMINER Roberta Davalossler Work Phone: Start: 02-14-2020 Radiography of cervi lan spine Jared Petty Plan of Treatment Date Care Activity Detail Author Start: 09-29-2032 DTaP,Tdap and Td Vaccines (2 - Td or Tdap) DTaP,Tdap and Td Vaccines (2 - Td or Tdap) [facility] Start: 10-06-2024 Adult BMI Screening Adult BMI Screening [facility] Start: 10-06-2024 Depression Screening Depression Screening [facility] Start: 10-06-2024 Fall Risk Screening Fall Risk Screening [facility] Start: 10-06-2024 Medicare Annual Wellness Visit Medicare Annual Wellness Visit [facility] Start: 10-06-2024 Tobacco Screening Tobacco Screening [facility] Start: 02-26-2024 Adult BMI Screening Adult BMI Screening [facility] Start: 02-26-2024 Tobacco Screening Tobacco Screening [facility] Start: 02-22-2024 End: 02-22-2024 Patient encounter procedure 02/22/2024 2:40 PM EST [facility] [address] [place] [address] [place] [id number] Roberta Patino, METHODS EXAMINER-SORT WORKER [address], [place] [address] [facility] Start: 11-18-2023 Fall Risk Screening Fall Risk Screening [facility] Start: 11-08-2023 COVID-19 Vaccine ( season) COVID-19 Vaccine () [facility] Start: 11-08-2023 Influenza vaccination Influenza Vaccine [facility] Start: 10-07-2023 End: 10-07-2023 Patient encounter procedure 10/07/2023 10:40 AM EDT Office Visit [facility] [address] [place] [address] [place] [id number] Roberta Patino, METHODS EXAMINER-SORT WORKER [address] [place] [address] [facility] Start: 09-30-2023 Medicare Annual Wellness Visit Medicare Annual Wellness Visit [facility] Start: 09-27-2023 Depression Screening Depression Screening [facility] Start: 08-31-2023 End: 08-31-2023 Patient encounter procedure 08/31/2023 2:40 PM EDT [facility] [address] [place] [address] [place] [id number] Roberta Patino, METHODS EXAMINER-SORT WORKER [address] [place] [address] [facility] Start: 07-21-2023 [facility] Start: 07-16-2023 X-ray of lumbar spine, four views XR lumbar spine AP/LAT/FLX/EXT [facility] Start: 06-25-2023 X-ray of cervical spine XR cerv spine AP/LAT/FLX/EXT [facility] Start: 11-24-2022 Administration of varicella zoster vaccine Zoster (Shingles) Vaccine (3 of 3) [facility] Start: 11-07-2022 Influenza vaccination Influenza Vaccine [facility] Start: 01-19-1958 Adult BMI Follow Up Plan Adult BMI Follow Up Plan [facility] Patient Education [facility] Work Phone: Patient referral [facility] Work Phone: Renal function 2000 panel - Serum or Plasma [facility] Immunizations Immunization Date Immunization Notes Care Provider Fa cili 10-07-2023 Pneumococcal Conjuga te 20-valent Latasha Gutierrez METHODS EXAMINER-SORT WORKER Work Phone: [facility] 12-12-2022 Covid-19,mrna, Lnp-s , Pf, 50mcg/0.5ml 12+ Roberta Patino METHODS EXAMINER-SORT WORKER Work Phone: [facility] 09-29-2022 tetanus toxoid, redu raji diphtheria toxoid, and acellular pertussis vaccine, adsorbed Roberta Patino METHODS EXAMINER-SORT WORKER Work Phone: [facility] 09-29-2022 zoster vaccine recombinant Roberta Patino METHODS EXAMINER-SORT WORKER Work Phone: [facility] 09-29-2022 zoster vaccine, unspecified formulation Roberta Patino METHODS EXAMINER-SORT WORKER Work Phone: [facility] 12-16-2021 influenza virus vacc ine, unspecified formulation Roberta Patino METHODS EXAMINER-SORT WORKER Work Phone: [facility] 01-16-2021 COVID-19 mRNA-1273 (Moderna) METHODS EXAMINER Roberta Patino Work Phone: [facility] 12-08-2020 Influenza Vaccine, Quadrivalent, Adjuvanted Roberta Patino METHODS EXAMINER-SORT WORKER Work Phone: [facility] 05-07-2020 COVID-19, mRNA, LNP- S, PF, 100mcg/0.5mL Dose Roberta Patino METHODS EXAMINER-SORT WORKER Work Phone: [facility] 05-04-2020 COVID-19 mRNA-1273 (Moderna) METHODS EXAMINER Roberta Davalossler Work Phone: [facility] 04-07-2020 COVID-19, mRNA, LNP- S, PF, 100mcg/0.5mL Dose Roberta Patino METHODS EXAMINER-SORT WORKER Work Phone: [facility] 04-06-2020 COVID-19 mRNA-1273 (Moderna) METHODS EXAMINER Roberta Patino Work Phone: [facility] 02-18-2020 influenza, injectabl e, quadrivalent, preservative free Roberta Patino METHODS EXAMINER-SORT WORKER Work Phone: [facility] 01-25-2019 Influenza, injectabl e, Madin Teri Canine Kidney, quadrivalent with preservative Roberta Patino METHODS EXAMINER-SORT WORKER Work Phone: [facility] 01-25-2019 pneumococcal polysaccharide vaccine, 23 valent Roberta Patino METHODS EXAMINER-SORT WORKER Work Phone: [facility] 01-13-2018 pneumococcal conjuga te vaccine, 13 valent Roberta Davalossler METHODS EXAMINER-SORT WORKER Work Phone: [facility] 01-08-2018 influenza, injectabl e, quadrivalent, contains preservative Roberta Patino METHODS EXAMINER-SORT WORKER Work Phone: [facility] 03-09-2014 zoster vaccine, live Roberta Patino METHODS EXAMINER-SORT WORKER Work Phone: [facility] Payers Date Payer Category Payer [employer] Indemnity [place] [id number] 2016 Unknown FRANCISCO MENDEZ [id number] 2016-Present [phone] [id number] [place], [place] [id number] 2016 Unknown [id number] 2005 Medicare [id number] 2005 Medicare [id number] 1940 Unknown [id number] 1940 Unknown [id number] 1940 Unknown [id number] 1940 Unknown [id number] 1940 Unknown [id number] Medicare [id number] Self-pay Self Pay [id number] Social History Date Type Detail Facility Start: 03-12-2020 End: 08-31-2023 Tobacco smoking status [facility] Ex-smoker (finding) [facility] Start: 1940 Sex Assigned At Male [facility] Start: 10-23-2020 End: 02-25-2023 Sex Assigned At [facility] Start: 07-01-2021 End: 07-02-2021 Tobacco smoking status [facility] Never smoked tobacco (finding) [facility] End: 03-09-1999 History of tobacco use Current smoker [facility] End: 03-09-1999 History of tobacco use Cigarette Smoker [facility] Start: 07-09-2022 End: 08-31-2023 Tobacco use and exposure Smokeless tobacco non-user [facility] Start: 02-25-2023 End: 10-07-2023 Alcohol intake Current non-drinker of alcohol (finding) [facility] Start: 10-23-2020 End: 02-25-2023 History of Social function [facility] Do you belong to any clubs or organizations such as christian groups, unions, fraternal or athletic groups, or school groups? No [facility] Are you now , , , , never or living with a partner? [facility] How often to you hav e a drink containing alcohol? Monthly or less [facility] How many standard dr inks containing alcohol do you have on a typical day? Patient declined [facility] How often do you hav e 6 or more drinks on 1 occasion? Never [facility] Do you feel stress - tense, restless, nervous, or anxious, or unable to sleep at night because your mind is troubled all the time - these days [OSQ] Not at all [facility] Start: 10-23-2020 Education 16 [facility] Start: 1940 Sex Assigned At Not on file [facility] Start: 10-12-2014 Sex Male (finding) [facility] Medical Equipment Procedure Code Equipment Code Equipment Origin al Text Equipment Identifier Dates Decompression, spine, cervical, posterior approach OSTEOAMP GRANULES 10CC FDA Start: 03-19-2020 Decompression, spine, cervical, posterior approach Bone-screw internal spinal fixation system, non-sterile ()[id number] FDA Start: 03-19-2020 Decompression, spine, cervical, posterior approach Bone-screw internal spinal fixation system, non-sterile ()[id number] FDA Start: 03-19-2020 Decompression, spine, cervical, posterior approach Bone-screw internal spinal fixation system, non-sterile ()[id number] FDA Start: 03-19-2020 Decompression, spine, cervical, posterior approach Bone-screw internal spinal fixation system, non-sterile ()[id number] FDA Start: 03-19-2020 Decompression, spine, cervical, posterior approach Bone-screw internal spinal fixation system, non-sterile ()[id number] FDA Start: 03-19-2020 Decompression, spine, cervical, posterior approach Bone-screw internal spinal fixation system, non-sterile ()[id number] FDA Start: 03-19-2020 Decompression, spine, cervical, posterior approach Bone-screw internal spinal fixation system, non-sterile ()[id number] FDA Start: 03-19-2020 Decompression, spine, cervical, posterior approach CANCELLOUS 15CC CRUSHED FDA Start: 07-01-2021 Decompression, spine, cervical, posterior approach Spinal fusion graft kit ()[id number] FDA Start: 07-01-2021 Decompression, spine, cervical, posterior approach Bone-screw internal spinal fixation system, non-sterile ()[id number] FDA Start: 07-01-2021 Decompression, spine, cervical, posterior approach Bone-screw internal spinal fixation system, non-sterile ()[id number] FDA Start: 07-01-2021 Decompression, spine, cervical, posterior approach Bone-screw internal spinal fixation system, non-sterile ()[id number] FDA Start: 07-01-2021 Decompression, spine, cervical, posterior approach Bone-screw internal spinal fixation system, non-sterile ()[id number] FDA Start: 07-01-2021 Decompression, spine, cervical, posterior [...] low back pain Sacroiliitis, not elsewhere classified [facility] Work Phone: [phone] 851-964008-15-2024 Evaluation note* Diagnosis Onset Date Resolution Status [...] pain acute Sacroiliitis, not elsewhere classified acute [facility] Work Phone: [phone] 517-665603-07-2024 Miscellaneous Notes* Telephone Encounter - Rajani Thorne CNA - 05/14/2023 2:28 PM EST Barney notified of enrollment to the care management. [facility] Telephone encounter Note* Telephone Encounter - Rajani Thorne CNA - 05/14/2023 2:28 PM EST Barney notified of enrollment to the care management. [employer]12-13-2023 Evaluation note* Encounter Date Diagnosis Assessment Notes [...] Will continue same BP meds Feb, Hypercalcemia (ICD-1 0 - E83.52) This has [...] He does not take nonsteroidal anti-inflammatory drugs. [facility] Other 06-20-2023 Evaluation note* Encounter Date Diagnosis [...] He does not take nonsteroidal anti-inflammatory drugs. [facility] Other 04-04-2023 Evaluation note* Encounter Date Diagnosis [...] Cervical radiculopathy at C8 (ICD-10 - M54.12) [facility] Other 12-13-2022 Evaluation note* Encounter Date Diagnosis [...] He does not take nonsteroidal anti-inflammatory drugs. [facility] Other 08-23-2022 Evaluation note* Encounter Date Diagnosis [...] Cervical radiculopathy at C8 (ICD-10 - M54.12) [facility] Other 06-15-2022 Evaluation note* Encounter Date Diagnosis [...] He does not take nonsteroidal anti-inflammatory drugs. [facility] Other 05-24-2022 Evaluation note* Encounter Date Diagnosis Assessment Notes Treatment Notes Treatment Clinical Notes July, Cervical radiculopathy at C8 (ICD-10 - M54.12) Mr. Albarran is doing very well, his radicular symptoms [...] fusion of cervical spine (ICD-10 - Z98.1) [facility] Other 02-17-2022 Evaluation note* Encounter Date Diagnosis [...] meantime Apr, Cervical myelopathy (ICD-10 - G95.9) [facility] Other 01-06-2022 Evaluation note* Encounter Date Diagnosis [...] of right upper extremity (ICD-10 - G56.21) [facility] Other 10-07-2021 Evaluation note* Encounter Date Diagnosis [...] declined Dec, Cervical myelopathy (ICD-10 - G95.9) Located Within [facility] [employer] Other chipl complaint+Reason for visit Narrative* Chief Complaint m47.12 FOLLOW UP PCD W/X-RAY CONSULT DR. 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 NUÑEZ M47.818 Back Pain Back Pain PROCEDURE F/U RENAL [...] Hypercalcemia Hyperparathyroid bone disease Vitamin B12 deficiency [facility] Work Phone: Chizo complaint+Reason for visit Narrative* Chief Complaint m47.12 FOLLOW UP PCD W/X-RAY CONSULT DR. NUÑEZ M47.818 Back Pain Back Pain PROCEDURE F/U RENAL [...] Hypercalcemia Hyperparathyroid bone disease Vitamin B12 deficiency [facility] Work Phone: [place]iz[place] complaint+Reason for visit Narrative* Chief Complaint CONSULT DR. NUÑEZ M47.818 Back Pain Back Pain PROCEDURE F/U RENAL [...] low back pain Sacroiliitis, not elsewhere classified [facility] Work Phone: Chief complaint+Reason for visit Narrative* Chief Complaint Back [...] low back pain Sacroiliitis, not elsewhere classified [facility] Work Phone: Evaluation noteNo InformationNort [employer] Other Evaluation noteNo assessment information available [facility] Work Phone: Evaluation note* Diagnosis Dermatitis Contact dermatitis and other eczema, due to unspecified cause documented [facility] this 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 acute Spondylolisthesis, cervical region acute Chronic pain acute Other low back pain acute Sacroiliitis, not elsewhere classified acute [facility] Work Phone: Evaluation note* Diagnosis Onset Date Resolution Status 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 acute Spondylolisthesis, cervical region acute Chronic pain acute Other low back pain acute Sacroiliitis, not elsewhere classified acute Chronic pain acute Other low back pain acute Sacroiliitis, not elsewhere classified acute [facility] Work Phone: Evaluation note* Diagnosis Onset Date [...] bone disease acute Vitamin B12 deficiency acute [facility] Work Phone: Evaluation note* Diagnosis Onset Date [...] pain acute Sacroiliitis, not elsewhere classified acute [facility] Work Phone: Evaluation note* Diagnosis Onset Date Resolution Status Chronic pain acute Other low back pain acute Sacroiliitis, not elsewhere classified acute BPH loc w urin obs/LUTS acut e Chronic kidney disease, stage 3a acute Hypercalcemia acute Hyperparathyroid bone disease acute Vitamin B12 deficiency acute Arthritis of lumbosacral spine acute Chronic pain acute Other low back pain acute Sacroiliitis, not elsewhere classified acute [facility] Work Phone: Evaluation note* Diagnosis Enlarged prostate with urinary obstruction Hypertrophy of prostate with urinary obstruction and other lower urinary tract symptoms (LUTS) documented [facility] this encounter [facility] N[facility]ative - Reported* Type Description Date Medical History hypertension Medical History cervical myelopathy Medical History spinal stenosis Medical History pneumonia Medical History Acute Kidney Injury Medical History chronic kidney disease Surgical History back surgery Surgical History shoulder surgery Surgical History hemorrhoidectomy Surgical History hernia repair Surgical History Cervical fusion-Doctor Juvenal Hospitalization History See Above [facility] Other History general Narrative - Reported* Type Description Date Medical History hypertension Medical History cervical myelopathy Medical History spinal stenosis Medical History pneumonia Medical History Acute Kidney Injury Medical History chronic kidney disease Surgical History back surgery Surgical History shoulder surgery Surgical History hemorrhoidectomy Surgical History hernia repair Surgical History Cervical fusion-Doctor Juvenal 06/11/2021 Hospitalization History See Above [facility] Other InstructionsNot on filedocumented in this encounter [facility] filedocumented in this encounter [facility] on filedocumented in this encounter [facility]Not on filedocumented in this encounter [facility] Advance Directives Advance Directive Response Recorded Date/ Time Advance [...] FOLLOW UP PCD W/X-RAY CONSULT DR. 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 Reason for Visit Arthropathy of both sacroiliac joints History of fusion of cervical spine Spondylolisthesis, cervical region Chronic pain Other low back pain Sacroiliitis, not elsewhere classified Assessments No Assessments Information AvailableNo Assessments Information Available Family History Relationship Condition Age at Onset Recorded Date/T fawad Not Specified Heart disease Unknown father Hypertension Unknown daughter Cerebrovascular accident (CVA) Unknown Relationship Condition Age at Onset Recorded Date/T fawad Not Specified Hypertension Unknown father Heart disease Unknown Hypertension Unknown daughter Cerebrovascular accident (CVA) Unknown brother History of agent Harney exposure Unknown Relationship Condition Age at Onset Recorded Date/T fawad Not Specified Hypertension Unknown father Heart disease Unknown Hypertension Unknown daughter Cerebrovascular accident (CVA) Unknown brother History of agent Harney exposure Unknown brother Family history of mental disorder Unknown Malignant neoplasm Unknown daughter Hypertension Unknown History of stroke Unknown father Unknown family member Family history of other condition Unknow n Not Specified Unknown sister Malignant neoplasm Unknown Relationship Condition Age at Onset Recorded Date/T fawad mother Hypertension Unknown father Heart disease Unknown Hypertension Unknown daughter Cerebrovascular accident (CVA) Unknown brother History of agent Harney exposure Unknown brother Family history of mental disorder Unknown Malignant neoplasm Unknown daughter Hypertension Unknown History of stroke Unknown father Unknown family member Family history of other condition Unknow n mother Unknown sister Malignant neoplasm Unknown Summary Purpose Reason for Referral Reason Evaluate BUE EM G Diagnosis 1 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) Referral Organization [facility] urosurgery Referring Provider First Name Willian Referring Provider Last Name Juvenal Referring Provider Specialty Neurologica l Surgery Referred Organization Unknown Facility Referred Provider Jose Ramon Curran Referred Provider Specialty Neurology Referral Priority Routine General Notes Fabby Barnett 022 08:42:45 AM >Received today and this was already sent P2P by the office Additional Source Comments (unrecognized sect ion and content) No Status Records FoundNo Status Records FoundNo Status Records FoundNo Status Records FoundNo Status Records Found INFORMATION SOURCE (unrecogn ized section and content) DATE CREATED AUTHOR 06/01/2020 [facility] DATE CREATED AUTHOR AUTHOR'S ORGANIZ ATION 11/09/2020 [facility] DATE CREATED AUTHOR AUTHOR'S ORGANIZ ATION 07/24/2023 [facility] DATE CREATED AUTHOR AUTHOR'S ORGANIZ ATION [facility]18/20[facility] DATE CREATED AUTHOR AUTHOR'S ORGANIZ ATION [facility]/28[facility]20[facility] REASON FOR VISIT (unrecogniz ed section and content) Reason Comments Med Refill Reason Onset Date Comments Care Management 05/14/2023 Reason Onset Date Comments Med Refill 05/29/2023 Care Teams (unrecognized sec tion and content) Team Status: Active Member Role Status Dates Roberta Patino APRN SENIOR COMMUNICATIONS SPECIALIST-C Primary Care Provider Active Team Status: Active Member Role Status Dates Roberta Patino APRN SENIOR COMMUNICATIONS SPECIALIST-C Primary Care Provider Active Start: June 25, 2023 Willian Nuñez MD Attending Provider Active Star t: June 25, 2023 Team Status: Inactive Member Role Status Dates Roberta Patino APRN SENIOR COMMUNICATIONS SPECIALISTAndree Primary Care Provider Active Start: June 25, 2023 End: June 25, 2023 Willian Nuñez MD Attending Provider Active Star t: June 25, 2023 End: June 25, 2023 Team Status: Inactive Member Role Status Dates Roberta Patino APRN SENIOR COMMUNICATIONS SPECIALIST-C Primary Care Provider Active Willian Nuñez MD Attending Provider Active Team Status: Inactive Member Role Status Dates Roberta Patino APRN SENIOR COMMUNICATIONS SPECIALIST-C Primary Care Provider Active Lynn Garcia MD Attending Provider Active Coding Consultant Relationship Specialty Start Date End Date CherryRoberta MadanYUANN-SORT WORKER [address], [place] [address] PCP - General Family Medicine 09/13/20 Coding Consultant Relationship Specialty Start Date End Date CherryRoberta ramey APRN-SORT WORKER [address], [place] [address] PCP - General Family Medicine 09/13/20 Coding Consultant Relationship Specialty Start Date End Date CherryRoberta ramey APRN-SORT WORKER [address], [place] [address] PCP - General Family Medicine 09/13/20 Team Status: Inactive Member Role Status Dates Roberta Patino APRN SENIOR COMMUNICATIONS SPECIALIST-C Primary Care Provider Active Start: July 16, 2023 End: July 16, 2023 Angel Carbajal MD Attending Provider Active Sta rt: July 16, 2023 End: July 16, 2023 Team Status: Active Member Role Status Dates Roberta Patino APRN SENIOR COMMUNICATIONS SPECIALIST-C Primary Care Provider Active Start: July 16, 2023 Angel Carbajal MD Attending Provider Active Sta rt: July 16, 2023 Team Status: Inactive Member Role Status Dates Roberta Patino APRN SENIOR COMMUNICATIONS SPECIALIST-C Primary Care Provider Active Start: July 21, 2023 End: July 21, 2023 Angel Carbajal MD Attending Provider Active Sta rt: July 21, 2023 End: July 21, 2023 Team Status: Active Member Role Status Dates Roberta Patino APRN SENIOR COMMUNICATIONS SPECIALIST-C Primary Care Provider Active Start: July 20, 024 Angel Carbajal MD Attending Provider, Other Provider Active Start: July 21, 2023 Team Status: Inactive Member Role Status Dates Roberta Patino APRN SENIOR COMMUNICATIONS SPECIALIST-C Primary Care Provider Active Start: August 18, 2023 End: August 18, 2023 Angel Carbajal MD Attending Provider Active Sta rt: August 18, 2023 End: August 18, 2023 Team Status: Inactive Member Role Status Dates Roberta Patino APRN SENIOR COMMUNICATIONS SPECIALIST-C Primary Care Provider Active Start: August 19, 2023 End: August 19, 2023 Cristofer Odonnell MD Attending Provider Active Star t: August 19, 2023 End: August 19, 2023 Team Status: Active Member Role Status Dates Roberta Patino APRN SENIOR COMMUNICATIONS SPECIALIST-C Primary Care Provider Active Start: August 26, 2023 Angel Carbajal MD Attending Provider Active Sta rt: August 26, 2023 Team Status: Inactive Member Role Status Dates Roberta Patino APRN SENIOR COMMUNICATIONS SPECIALIST-C Primary Care Provider Active Start: September 18, 2023 End: September 18, 2023 Angel Carbajal MD Attending Provider Active Sta rt: September 18, 2023 End: September 18, 2023 Team Status: Inactive Member Role Status Dates Roberta Patino APRN SENIOR COMMUNICATIONS SPECIALIST-C Primary Care Provider Active Start: September 24, 2023 End: September 24, 2023 Angel Carbajal MD Attending Provider Active Sta rt: September 24, 2023 End: September 24, 2023 Team Status: Inactive Member Role Status Dates Roberta Patino APRN SENIOR COMMUNICATIONS SPECIALIST-C Primary Care Provider Active Start: October 14, 2023 End: October 14, 2023 Angel Carbajal MD Attending Provider Active Sta rt: October 14, 2023 End: October 14, 2023 Team Status: Active Member Role Status Dates Roberta Patino APRN SENIOR COMMUNICATIONS SPECIALIST-C Primary Care Provider Active Start: October 14, 2023 Angel Carbajal MD Attending Provider Active Sta rt: October 14, 2023 Team Status: Inactive Member Role Status Dates Roberta Patino APRN SENIOR COMMUNICATIONS SPECIALIST-C Primary Care Provider Active Start: October 22, 2023 End: October 22, 2023 Angel Carbajal MD Attending Provider Active Sta rt: October 22, 2023 End: October 22, 2023 Coding Consultant Relationship Specialty Start Date End Date Roberta Patino, LINDA-SORT WORKER [address], [place] [address] PCP - General Family Medicine 09/13/20 Sugar Balderas [facility] Nurse - [employer] 07/08/23 Goals (unrecognized section and content) Goals may [...] BE BASED ON THE PRIMARY CLINICAL RECORDS. [employer] provides no warranty or guarantee of the accuracy or completeness of information in this document.
[2024-01-20 14:10] LABS: Basophils Percent Auto 0.2 % (0.2-2.0); Eosinophils Absolute Auto 0.1 10^3/uL (0.0-0.7); Hematocrit 38.2 % (42.0-54.0); Hemoglobin 12.9 g/dL (14.0-18.0); Immature Granulocytes Abs Auto 0.02 10^3/uL (0.00-0.03); Immature Granulocytes Pct Auto 0.5 % (0.0-0.5); Lymphocytes Absolute Auto 1.2 10^3/uL (1.2-3.8); Lymphocytes Percent Auto 27.6 % (20.5-60.0); Mean Corpuscular HGB Conc 33.8 g/dL (29.9-35.2); Mean Corpuscular Hemoglobin 32.3 pg (25.9-34.0); Mean Corpuscular Volume 95.5 fL (80.0-94.0); Mean Platelet Volume 9.5 fL (9.5-13.5); Monocytes Absolute Auto 0.5 10^3/uL (0.3-0.8); Monocytes Percent Auto 11.3 % (1.7-12.0); Neutrophils Absolute Auto 2.5 10^3/uL (1.4-6.5); Neutrophils Percent Auto 57.4 % (43.0-75.0); Platelet Count 196 10^3/uL (150-450); Red Cell Distribution Width 12.4 % (11.0-15.0); White Blood Count 4.4 10^3/uL (4.0-11.0)
--- NOTE | 2024-01-20 14:10 | P.GSHP_ITS ---
History of Present Illness History of Present Illness Chief complaint: LUMBAR SPINAL STENOSIS Narrative: Patient presents for presurgical testing accompanied by his daughter. The patient reports a long history of back pain. He has had a previous lumbar laminectomy as well as a previous cervical spine fusion. He reports chronic back pain without neuropathy. He is not currently taking any pain medication. He states that due to his back pain he cannot do all of the activities that he would like. 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 Review of Systems ROS Narrative REVIEW OF SYSTEMS: Negative except as stated in HPI, ten or more systems reviewed. Constitutional: No fever, chills, weakness ENT: No sore throat or epistaxis Cardiovascular: No edema, chest pain, palpitations, or activity intolerance Respiratory: No shortness of breath, cough, or wheezing Gastrointestinal: No abdominal pain, constipation, diarrhea, or vomiting Genitourinary: No dysuria or hematuria Neurological: No numbness, tingling, weakness, or headache Psychiatric: No mood changes [facility] Medical History (Updated 01/20/24 @ 14:20 by Carmela Bender NP) Lumbar stenosis with neurogenic claudication ?M48.062 - Spinal stenosis, lumbar region with neurogenic claudication (ICD- 10) Irregular heartbeat ?I49.9 - Cardiac arrhythmia, unspecified (ICD-10) Hypercalcemia ?E83.52 - Hypercalcemia (ICD-10) Bone disorder ?M89.9 - Disorder of bone, unspecified (ICD-10) Kidney disease ?N28.9 - Disorder of kidney and ureter, unspecified (ICD-10) Skin cancer ?C44.90 - Unspecified malignant neoplasm of skin, unspecified (ICD-10) Arthritis ?M19.90 - Unspecified osteoarthritis, unspecified site (ICD-10) Back pain ?M54.9 - Dorsalgia, unspecified (ICD-10) BPH (benign prostatic hyperplasia) ?N40.0 - Benign prostatic hyperplasia without lower urinary tract symptoms (ICD-10) Cataract ?H26.9 - Unspecified cataract (ICD-10) GERD (gastroesophageal reflux disease) ?K21.9 - Gastro-esophageal reflux disease without esophagitis (ICD-10) Extremity edema ?R60.0 - Localized edema (ICD-10) Autologous donor, 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, stem cells (ICD-10) Low back pain ?M54.50 - Low back pain, unspecified (ICD-10) Hypertension ?I10 - Essential (primary) hypertension (ICD-10) Kidney dysfunction ?N28.9 - Disorder of kidney and ureter, unspecified (ICD-10) Surgical History (Updated 01/20/24 @ 13:13 by Carmela Bender NP) S/P cataract extraction and insertion of intraocular lens ?Z98.49 - Cataract extraction status, unspecified eye (ICD-10) ?Z96.1 - Presence of intraocular lens (ICD-10) History of colonoscopy ?Z98.890 - Other specified postprocedural states (ICD-10) H/O repair of rotator cuff ?Z98.890 - Other specified postprocedural states (ICD-10) H/O cervical spine surgery ?Z98.890 - Other specified postprocedural states (ICD-10) H/O shoulder replacement ?Z96.619 - Presence of unspecified artificial shoulder joint (ICD-10) H/O hernia repair ?Z98.890 - Other specified postprocedural states (ICD-10) ?Z87.19 - Personal history of other diseases of the digestive system (ICD-10) Hx of laminectomy ?Z98.890 - Other specified postprocedural states (ICD-10) Family History (Updated 01/20/24 @ 13:13 by Carmela Bender NP) Other Cancer Family history of breast cancer Family history of heart disease Family history of hypertension Family history of stroke Kyphosis Social History (Updated 01/20/24 @ 13:01 by Carmela Bender NP) Within the past year, how often did you have a drink containing alcohol: monthly or less Smoking status: Former smoker Non-prescribed substance use: denies use 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, 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 Highest level of school completed/degree received: high school graduate Meds Home Medications and Allergies Home Medications ?Medication ?Instructions ?Recorded ?Confirmed ?Type amlodipine 5 mg tablet 5 mg PO DAILY 11/17/23 01/20/24 History ascorbic acid (vitamin C) 500 mg 500 mg PO DAILY 11/17/23 01/20/24 History capsule cyanocobalamin (vitamin B-12) 1,000 mcg PO DAILY 11/17/23 01/20/24 History 1,000 mcg capsule cyclobenzaprine 5 mg tablet 5 mg PO DAILY 11/17/23 01/20/24 History diclofenac sodium 1 % topical gel 2 g topical QID 11/17/23 01/20/24 History famotidine 20 mg tablet 20 mg PO BID 11/17/23 01/20/24 History finasteride 5 mg tablet 5 mg PO DAILY 11/17/23 01/20/24 History fluticasone propionate 50 1 inh inhalation QAM 11/17/23 01/20/24 History mcg/actuation blister powder for inhalation losartan 50 mg tablet 75 mg PO DAILY 11/17/23 01/20/24 History nystatin 100,000 unit/gram topical 1 applic topical DAILY 11/17/23 01/20/24 History cream peg 400-propylene glycol 0.4 %-0.3 1 drp ophthalmic (eye) DAILY PRN 11/17/23 01/20/24 History % eye drops (Systane Ultra) dry eye(s) tamsulosin 0.4 mg capsule 0.4 mg PO DAILY 11/17/23 01/20/24 History triamcinolone acetonide 0.1 % 1 applic topical DAILY 11/17/23 01/20/24 History topical cream triamterene 37.5 1 cap PO DAILY 11/17/23 01/20/24 History mg-hydrochlorothiazide 25 mg capsule Allergies Allergy/AdvReac Type Severity Reaction Status Date / Time aspirin AdvReac Unknown Nausea Verified 01/20/24 12:56 naproxen AdvReac Unknown Nausea Verified 01/20/24 12:56 Exam Narrative Exam Narrative: Constitutional: Awake, alert, comfortable, well-appearing, nontoxic, interactive, vital signs as charted Head: Normocephalic, atraumatic Neck: Supple, normal appearance, normal range of motion, no meningeal signs, no lymphadenopathy Respiratory: No respiratory distress, breath sounds clear Cardiovascular: Regular rate, irregular rhythm, strong heart tones Abdomen: Nontender, normal bowel sounds, soft, no CVA tenderness Musculoskeletal: 2+ pedal edema bilaterally, bilateral lumbar paraspinal muscle tenderness Skin: No rashes or induration, no lesions, only visible skin inspected Neuro: No neurological deficits, normal sensation Psychiatric: Oriented ?3, normal affect Assessment and Plan Assessment and Plan (1) Lumbar stenosis with neurogenic claudication: Plan Lumbar spinal cord stimulator trial scheduled with Dr. Garcia January 25, 2024.
[2024-01-20 14:25] LABS: INR 0.96; Partial Thromboplastin Time 30.3 sec (22.3-36.2); Prothrombin Time 10.2 sec (9.0-11.6)
[2024-01-20 14:36] LABS: Anion Gap 12.5; BUN Creatinine Ratio 16.3; Calcium 9.7 mg/dL (8.5-10.1); Chloride 106 mmol/L (98-107); Estimated GFR (African America 58 (>=60 mL/min/1.73m^2); Estimated GFR (Non-African Ame 48 (>=60 mL/min/1.73m^2); Glucose 93 mg/dL (74-106); Potassium 4.5 mmol/L (3.5-5.1); Sodium 141 mmol/L (136-145)
== END 2024-01-20 12:30 | disposition home or self-care (01) ==
LOC: PST 12:31
PROVIDERS: PCP Nurse Practitioner; Visit Provider Anesthesiology
DX: Z01.810 Encounter for preprocedural cardiovascular examination (principal); Z01.812 Encounter for preprocedural laboratory examination; Z01.818 Encounter for other preprocedural examination; M48.062 Spinal stenosis, lumbar region with neurogenic claudication
CPT/HCPCS: 36415; 71046; 80048; 85025; 85610; 85730; 93005; G0463

== ENCOUNTER 2024-01-25 10:56 | Day surgery (SDC) | payer MEDICARE, BC, SELFPAY ==
[2024-01-20 13:42] VITALS: BP 157/79; PULSE 77; TEMP 36.3; O2SAT 99; BMI 28.4
[2024-01-25 11:53] VITALS: BP 150/82; PULSE 83; TEMP 36.4; O2SAT 99
[2024-01-25] MEDS: 0.9 % SODIUM CHLORIDE 500 ML IV (12:14)
[2024-01-25] MEDS: CEFAZOLIN SODIUM/DEXTROSE,ISO 1 GM/50 ML PREMIX IV (12:36)
[2024-01-25] MEDS: BUPIVACAINE HCL 0.25% PF 25 MG/10 ML VIAL INJ (12:57)
[2024-01-25] MEDS: LIDOCAINE HCL 2%-EPINEPHRINE 1:200,000 20 ML MDV 10 ML INJ (12:58)
--- NOTE | 2024-01-25 13:12 | W.PM.PROCNOT ---
Date of procedure: 01/25/24 Pre-op diagnosis: Pain due to lumbar stenosis with neurogenic claudication Post-op diagnosis: same as pre-op Procedure: Procedure Performed by: Mabel De La Garza M.D. Procedure: Placement of [employer] 16 contact neuroelectrode trial leads (x two) under fluoroscopic guidance *Needle Switchboard Troubleshooter at the interspace below T12/L1 *Final Lead Placement Level at the top of the vertebral body T7 Anesthesia: Monitored Anesthesia Care is medically necessary for the procedure due to the procedure requiring the patient to remain motionless for a prolonged period of time. Procedure: Risks, Benefits, Alternatives were reviewed and informed consent was obtained in the preop holding area. All questions were answered appropriately. The patient was brought to the operating room and placed in the prone position with padding under all bony prominences. A pre-procedure time out was performed specifying pt. name, nature site and side of surgery, and allergies. Anesthesia provided appropriate sedation as the skin over the thoracic and lumbar spine were prepped with duraprep and draped in the usual sterile fashion. Under fluoroscopic guidance, the above noted interspace was identified as the site for epidural needle entry. The skin and subcutaneous tissues were anesthetized approximately 1 level inferior to this point with a mixture of 1% lidocaine and 0.25% bupivacaine. Two 14 gauge tuouy needles were inserted to the superior aspect of the lamina just inferior to the target interspace. Then, using loss of resistance technique as well as fluoroscopic guidance, the epidural space was entered. Two [employer] Trial Stimulator Leads were then advanced under intermittent fluoroscopic guidance until the distal tip of the electrode was observed to be in position at the final position noted above. After appropriate electrode placement was achieved, stimulation was tested intraoperatively with multiple lead configurations until concordant paresthesias were obtained covering the areas of the patients pain. At this point, the needles and stylets were removed carefully and the leads were secured to the skin using steri-strips. The region was covered using a sterile tegaderm bandage. The patient was escorted to the recovery area in stable condition having tolerated the procedure well. Anesthesia: MAC Surgeon: Mabel De La Garza Pathology: none sent Condition: stable Disposition: no change
[2024-01-25 13:15] VITALS: BP 133/90; PULSE 82; TEMP 36.3; O2SAT 98
[2024-01-25 13:18] VITALS: BP 147/81; PULSE 82; TEMP 36.3; O2SAT 95
== END 2024-01-25 13:52 | disposition home or self-care (01) ==
LOC: SURGOUT 10:57
PROVIDERS: PCP Nurse Practitioner; Visit Provider Anesthesiology
DX: M48.062 Spinal stenosis, lumbar region with neurogenic claudication (principal); I10 Essential (primary) hypertension
CPT/HCPCS: 36415; 63650; C1897; J0665; J0690; J2704

== ENCOUNTER 2024-02-01 11:22 | Outpatient (OUT) | payer MEDICARE, BC, SELFPAY ==
--- OUTSIDE RECORDS SUMMARY | 2024-02-01 11:31 | XMS_ITS | CCD ---
Author Organization [facility] Care Team Providers Care Foundry Engineer Name Role Phone Jared Petty Primary Care Provider [phone] Willian Nuñez Attending Provider Willian Nuñez Unavailable Lynn Garcia Unavailable Cristofer Odonnell Unavailable LINDA Patino Primary Care Provider MD Lynn Garcia Attending Provider MD Willian Nuñez Attending Provider [phone] LINDA Patino Primary Care Provider MD Willian Nuñez Attending Provider Roberta John Primary Care Provi chong LINDA Patino Primary Care Provider MD Willian Nuñez Attending Provider [phone] MD Angel Carbajal Attending Provider [phone] Angel Carbajal Admitting Unavailable Angel Carbajal Attending [...] Care Unavailable CHERRYSUNITA RAMEYITH A Attending Unavailable CHERRY ROBERTA A Referring Unavailable CHERRY ROBERTA A [...] [aspirin] Drug Allergy [address] [facility] (14 sources) NSAIDS (Non-Steroidal Anti-Inflamma Propensity to adverse reactions [address] [facility] (20 sources) Anti-Inflammato ry Enzyme Drug allergy 4 Unknown, Unknown Reaction [facility] (20 sources) Naproxen; Translations: [NAPROXEN] Drug Allergy 9 Other (See Comments) [employer] Other Medications Current Medications Medication Drug Class(es) [...] 2020 1:00am June 17, 2021 12:49pm nystatin 294891 unt/ml topical cream (20 sources) Polyene Antifungal [...] As Directed June 17, 2021 12:00am Nystatin 020987 UNIT/GM 1 application Externally Twice a day Active Nystatin 720770 UNIT/GM 1 application Externally Twice a day [...] 9:32am docusate sodium 50 mg / sennosides, jail 8.6 mg oral tablet (12 sources) Start: [...] width (RBC) [Ratio] 14.0 % Normal 11.5-15.0 [facility] Comment on above: Performed By: #### C BC, UPCR, CMP, 22590-1, 2777-1, 3084-1, 2731-8, 2132-9, 03603-9 #### [facility] ([id number]) [address], [address] [place] [address] Hematocrit (Bld) [Volume fraction] 39.1 % Normal 39-49 [facility] Comment on above: Performed By: #### C BC, UPCR, CMP, 57594-2, 2777-1, 3084-1, 2731-8, 2132-9, 35023-1 #### [facility] ([id number]) [address], [address] [place] [address] Hemoglobin (Bld) [Mass/Vol] 13.6 g/dL Normal 13.0-17.0 [facility] Comment on above: Performed By: #### C BC, UPCR, CMP, 77484-4, 2777-1, 3084-1, 2731-8, 2132-9, 88393-2 #### [facility] ([id number]) [address], [address] [place] [address] MCH (RBC) [Entitic mass] 32.9 pg Normal 27-34 [facility] Comment on above: Performed By: #### C BC, UPCR, CMP, 16681-4, 2777-1, 3084-1, 2731-8, 2132-9, 94247-8 #### [facility] ([id number]) [address], [address] [place] [address] MCHC (RBC) [Mass/Vol] 34.9 g/dL Normal 32-36 [facility] Comment on above: Performed By: #### C BC, UPCR, CMP, 74166-4, 7-1, 3084-1, 2731-8, 2-9, 55195-9 #### [facility] ([id number]) [address], [address] [place] [address] MCV (RBC) [Entitic vol] 94 fL Normal 80-100 P [facility] Comment on above: Performed By: #### C BC, UPCR, CMP, 62412-3, 2777-1, 3084-1, 2731-8, 2132-9, 64480-5 #### [facility] ([id number]) [address], [address] [place] [address] Platelet mean volume (Bld) [Entitic vol] 8.3 fL Normal 7-12 [facility] Comment on above: Performed By: #### C BC, UPCR, CMP, 08463-7, 2777-1, 3084-1, 2731-8, 2132-9, 84803-2 #### [facility] ([id number]) [address], [address] [place] [address] Platelets (Bld) [#/Vol] 189 10*3/uL Normal 150-450 [facility] Comment on above: Performed By: #### C BC, UPCR, CMP, 22926-7, 2777-1, 3084-1, 2731-8, 2132-9, 56207-1 #### [facility] ([id number]) [address], [address] [place] [address] RBC COUNT 4.15 X10E12/L Normal 4.10-5.70 [facility] Comment on above: Performed By: #### C BC, UPCR, CMP, 80235-3, 2777-1, 3084-1, 2731-8, 2131-9, 16512-7 #### [facility] ([id number]) [address], [address] [place] [address] WBC (Bld) [#/Vol] 5.1 10*3/uL Normal 4.0-11.0 [facility] Comment on above: Performed By: #### C BC, UPCR, CMP, 18651-2, 2777-1, 3084-1, 2731-8, 2131-9, 82440-9 #### [facility] ([id number]) [address], [address] [place] [address] COMPREHENSIVE METABOLIC PANE Dima 08-17-2023 Albumin [Mass/Vol] 4.2 g/dL Normal 3.2-5.3 [facility] Comment on above: Performed By: #### C BC, UPCR, CMP, 73743-1, 2777-1, 3084-1, 2731-8, 2132-9, 47759-4 #### [facility] ([id number]) [address], [address] [place] [address] ALP [Catalytic activity/Vol] 61 U/L Normal 39-130 [facility] Comment on above: Performed By: #### C BC, UPCR, CMP, 47494-6, 2777-1, 3084-1, 2731-8, 2132-9, 67348-3 #### [facility] ([id number]) [address], [address] [place] [address] ALT [Catalytic activity/Vol] 21 U/L Normal 0-40 [facility] Comment on above: Performed By: #### C BC, UPCR, CMP, 03131-2, 2777-1, 3084-1, 2731-8, 2132-9, 64122-4 #### [facility] ([id number]) [address], [address] [place] [address] Anion gap [Moles/Vol] 8 mmol/L Normal 5-15 [facility] Comment on above: Performed By: #### C BC, UPCR, CMP, 42179-4, 2777-1, 3084-1, 2731-8, 2131-9, 80135-9 #### [facility] ([id number]) [address], [address] [place] [address] AST [Catalytic activity/Vol] 19 U/L Normal 0-41 [facility] Comment on above: Performed By: #### C BC, UPCR, CMP, 07820-3, 2777-1, 3084-1, 2731-8, 2-9, 85236-5 #### [facility] ([id number]) [address], [address] [place] [address] Bilirubin [Mass/Vol] 0.6 mg/dL Normal 0.3-1.2 [facility] Comment on above: Performed By: #### C BC, UPCR, CMP, 96055-6, 2777-1, 3084-1, 2731-8, 2132-9, 47354-8 #### [facility] ([id number]) [address], [address] [place] [address] Calcium [Mass/Vol] 9.7 mg/dL Normal 8.5-10.5 [facility] Comment on above: Performed By: #### C BC, UPCR, CMP, 58743-0, 2777-1, 3084-1, 2731-8, 2132-9, 78950-8 #### [facility] ([id number]) [address], [address] [place] [address] Chloride [Moles/Vol] 104 mmol/L Normal 98-109 [facility] Comment on above: Performed By: #### C BC, UPCR, CMP, 07478-1, 7-1, 3084-1, 2731-8, 2132-9, 63517-5 #### [facility] ([id number]) [address], [address] [place] [address] CO2 [Moles/Vol] 29 mmol/L Normal 22-32 [facility] Comment on above: Performed By: #### C BC, UPCR, CMP, 67445-1, 2776-, 3084-1, 2731-8, 2131-9, 22434-0 #### [facility] ([id number]) [address], [address] [place] [address] Creatinine [Mass/Vol] 1.29 mg/dL Normal 0.60-1.30 [facility] Comment on above: Result Comment: METH OD TRACEABLE TO IDMS STANDARD Performed By: #### C BC, UPCR, CMP, 34099-9, 2776-1, 3084-1, 2731-8, 2-9, 87425-6 #### [facility] ([id number]) [address], [address] [place] [address] GFR/1.73 sq M.predicted among non-blacks MDRD (S/P/Bld) [Vol rate/Area] 55 mL/min/{1.73_m2} Low >59 [facility] Comment on above: Result Comment: Reported eGFR is based on the CKD-EPI 2020 equation that does not use a race coefficient. Performed By: #### C BC, UPCR, CMP, 74199-0, 2777-1, 3084-1, 2731-8, 2132-9, 32536-7 #### [facility] ([id number]) [address], [address] [place] [address] Glucose [Mass/Vol] 94 mg/dL Normal 65-99 [facility] Comment on above: Performed By: #### C BC, UPCR, CMP, 34393-8, 2777-1, 3084-1, 2731-8, 2-9, 39157-7 #### [facility] ([id number]) [address], [address] [place] [address] Potassium [Moles/Vol] 4.4 mmol/L Normal 3.5-5.0 [facility] Comment on above: Performed By: #### C BC, UPCR, CMP, 07848-7, 2777-1, 3084-1, 2731-8, 2131-9, 84502-9 #### [facility] ([id number]) [address], [address] [place] [address] Protein [Mass/Vol] 6.7 g/dL Normal 6.0-8.0 [facility] Comment on above: Performed By: #### C BC, UPCR, CMP, 35968-8, 2777-1, 3084-1, 2731-8, 2-9, 54854-6 #### [facility] ([id number]) [address] [place] [address] Sodium [Moles/Vol] 141 mmol/L Normal 134-146 [facility] Comment on above: Performed By: #### C BC, UPCR, CMP, 83028-0, 2777-1, 3084-1, 2731-8, 2-9, 64644-1 #### [facility] ([id number]) [address], [address] [place] [address] Urea nitrogen [Mass/Vol] 23 mg/dL Normal 5-27 [facility] Comment on above: Performed By: #### C BC, UPCR, CMP, 20429-4, 2777-1, 3084-1, 2731-8, 2131-9, 33573-3 #### [facility] ([id number]) [address], [address] [place] [address] MAGNESIUMon 08-17-2023 Magnesium [Mass/Vol] 2.1 mg/dL Normal 1.8-2.6 [facility] Comment on above: Performed By: #### C BC, UPCR, CMP, 20219-3, 2777-1, 3084-1, 2731-8, 2131-9, 59742-8 #### [facility] ([id number]) [address], [address] [place] [address] PHOSPHORUSon 08-17-2023 Phosphate [Mass/Vol] 2.3 mg/dL Low 2.4-4.9 [facility] Comment on above: Performed By: #### C BC, UPCR, CMP, 53216-3, 2777-1, 3084-1, 1-8, 2131-9, 99361-2 #### [facility] ([id number]) [address], [address] [place] [address] PROTEIN CREAT RATIOon 2023 RANDOM URINE PROTEIN 190 mg/L High <120 [facility] Comment on above: Performed By: #### C BC, UPCR, CMP, 20632-2, 2777-1, 3084-1, 2731-8, 2131-9, 92341-6 #### [facility] ([id number]) [address], [address] [place] [address] U/PRO/MARKETING AMBASSADOR RATIO CALC 0.14 Normal <0.2 [facility] Comment on above: Result Comment: Neph rotic Syndrome is associated with ratios >3.5 Performed By: #### C BC, UPCR, CMP, 15918-7, 2777-1, 3084-1, 2731-8, 2-9, 52377-4 #### [facility] ([id number]) [address], [address] [place] [address] URINE CREATININE,RDM 131.58 mg/dL Normal Pr [facility] Comment on above: Performed By: #### C BC, UPCR, CMP, 38905-0, 2777-1, 3084-1, 2731-8, 2131-9, 29905-3 #### [facility] ([id number]) [address], [address] [place] [address] Parathyrin.intact [Mass/Vol] on 08-17-2023 PTH INTACT 88 pg/mL Normal 12 [facility] Comment on above: Performed By: #### C BC, UPCR, CMP, 75480-1, 2777-1, 3084-1, 2731-8, 2131-9, 67286-7 #### [facility] ([id number]) [address], [address] [place] [address] URIC ACIDon 08-17-2023 Urate [Mass/Vol] 5.2 mg/dL Normal 2.6-7.2 [facility] Comment on above: Performed By: #### C BC, UPCR, CMP, 82849-4, 2777-1, 3084-1, 2731-8, 2131-9, 55908-8 #### [facility] ([id number]) [address], [address] [place] [address] URINALYSISon 08-17-2023 Bilirubin Ql (U) Negative Normal NEG [facility] Comment on above: Performed By: #### U A #### [facility] ([id number]) [address], [address] [place] [address] BLOOD/HGB Negative Normal NEG [facility] Comment on above: Performed By: #### U A #### [facility] ([id number]) [address], [address] [place] [address] Color (U) YELLOW Normal YELLOW [facility] Comment on above: Performed By: #### U A #### [facility] ([id number]) [address], [address] [place] [address] Glucose Ql (U) Negative Normal NEG [facility] Comment on above: Performed By: #### U A #### [facility] ([id number]) [address], [address] [place] [address] Ketones Ql (U) Negative Normal NEG [facility] Comment on above: Performed By: #### U A #### [facility] ([id number]) [address], [address] [place] [address] Leukocyte esterase Test strip Ql (U) Negative Normal NEG [facility] Comment on above: Performed By: #### U A #### [facility] ([id number]) [address], [address] [place] [address] MUCOUS PRESENT Abnormal NONE [facility] Comment on above: Performed By: #### U A #### [facility] ([id number]) [address], [address] [place] [address] Nitrite Ql (U) Negative Normal NEG [facility] Comment on above: Performed By: #### U A #### [facility] ([id number]) [address], [address] [place] [address] pH (U) 6.0 [pH] Normal 5.0-8.5 [facility] Comment on above: Performed By: #### U A #### [facility] ([id number]) [address], [address] [place] [address] Protein Ql (U) Trace Abnormal NEG [facility] Comment on above: Performed By: #### U A #### [facility] ([id number]) [address], [address] [place] [address] R.B.CELLS 1 /hpf Normal 0-5 [facility] Comment on above: Performed By: #### U A #### [facility] ([id number]) [address], [address] [place] [address] Specific gravity (U) [Rel density] 1.023 Normal 1.003-1.035 [facility] Comment on above: Performed By: #### U A #### [facility] ([id number]) [address], [address] [place] [address] SQUAMOUS EPITHELIUM <1 Normal 0-5 [facility] Comment on above: Performed By: #### U A #### [facility] ([id number]) [address] [place] [address] TURBIDITY CLEAR Normal CLEAR [facility] Comment on above: Performed By: #### U A #### [facility] ([id number]) [address], [address] [place] [address] Urobilinogen (U) [Mass/Vol] mg/dL Normal <1.1 [facility] Comment on above: Performed By: #### U A #### [facility] ([id number]) [address], [address] [place] [address] W.B.CELLS 1 /hpf Normal 0-5 [facility] Comment on above: Performed By: #### U A #### [facility] ([id number]) [address], [address] [place] [address] VITAMIN B12on 08-17-2023 Cobalamin (Vitamin B12) [Mass/Vol] 539 pg/mL Normal 180-914 [facility] Comment on above: Performed By: #### C BC, UPCR, CMP, 39493-3, 2777-1, 3084-1, 2731-8, 2132-9, 31407-7 #### [facility] ([id number]) [address] [place] [address], [address] [place] [address] Vitamin D+Metabolites [Mass/ Vol]on 08-17-2023 VITAMIN D 25 HYD TOT 58.8 ng/mL Normal 30-100 [facility] Comment on above: Result Comment: Vitamin D status 25 [place] Vitamin D Deficiency <20 ng/mL Insufficiency 20-29 ng/mL Sufficiency 30-100 ng/mL Toxicity >100 ng/mL NOTE: A pediatric reference range has not been established by the tabulating supervisor of this kit. The [place] [employer] recommends a Vitamin D level of = or >20ng/mL in infants and children. Performed By: #### C BC, UPCR, CMP, 86109-1, 2777-1, 3084-1, 2731-8, 2-9, 95630-7 #### [facility] ([id number]) [address] [place] [address], [address] [place] [address] XR lumbar spine AP/LAT/FLX/E XTon 07-16-2023 XR lumbar spine AP/LAT/FLX/EXT [facility] [address] [place] [address] XRay Report Signed Patient: Barry Albarran MR#: [id number] : 1940 Acct:[id number] Age/Sex: 83 / M ADM Date: 07/16/23 Loc: [facility] Room: Type: [facility] Attending Dr: Angel Carbajal MD Copies to: [...] Rahul Beavers M.D.07/16/2023 11:58 AM Dictation Location: [place] [address] Transcribed By: [facility] 07/16/23 1158 Dictated By: Rahul Beavers DO 07/16/23 1157 Signed By: 07/16/23 1158 Normal [facility] XR cerv spine AP/LAT/FLX/EXT on 06-25-2023 XR cerv spine AP/LAT/FLX/EXT [facility] [place] [address] [place] [address] XRay Report Signed Patient: Barry Albarran MR#: [id number] : 1940 Acct:[id number] Age/Sex: 83 / M ADM Date: 06/25/23 Loc: XD Room: Type: [facility] Attending Dr: Willian Nuñez MD Copies to: [...] Osiel Calvert M.D.06/25/2023 1:59 PM Dictation Location: [place] [address] Transcribed By: JOHNNA 06/25/23 1359 Dictated By: Osiel Calvert II, MD 06/25/23 1357 Signed By: 06/25/23 1359 Normal [facility] Blood hemoglobin measurement (mass/volume)Ordered By: Lynn Garcia on 08-14-2021 Hemoglobin (Bld) [Mass/Vol] 12.0 g/dL 13.0-17.0 [facility] Creatinine [Mass/volume] in UrineOrdered By: Lynn Garcia on 08-14-2021 Creatinine (U) [Mass/Vol] 27.8 mg/dL [facility] Comment on above: No reference range e stablished Creatinine and Glomerular fi ltration rate.predicted panel (S/P/Bld)Ordered By: Lynn Garcia on 08-14-2021 Creatinine [Mass/Vol] 1.35 mg/dL 0.64-1.27 [facility] Erythrocyte distribution wid th Auto (RBC) [Ratio]Ordered By: Lynn Garcia on 08-14-2021 Erythrocyte distribution width (RBC) [Ratio] 14.4 % 12.0-14.8 [facility] Estimated glomerular filtrat ion rate (GFR) non- AmericanOrdered By: Lynn Garcia on 08-14-2021 GFR/1.73 sq M.predicted among non-blacks MDRD (S/P/Bld) [Vol rate/Area] 51 mL/Min [facility] Hematocrit Auto (Bld) [Volum e fraction]Ordered By: Lynn Garcia on 08-14-2021 Hematocrit (Bld) [Volume fraction] 36.0 % 38.8-50.0 [facility] MCH Auto (RBC) [Entitic mass ]Ordered By: Lynn starr 08-14-2021 MCH (RBC) [Entitic mass] 30.0 pg 27.5-35.2 [facility] MCHC Auto (RBC) [Mass/Vol]Or dered By: Lynn Garcia on 08-14-2021 MCHC (RBC) [Mass/Vol] 33.5 g/dL 32.5-35.6 [facility] MCV Auto (RBC) [Entitic vol] Ordered By: Lynn Garcia on 08-14-2021 MCV (RBC) [Entitic vol] 89.8 fL 83.5-101 F [facility] No Panel InformationOrdered By: Lynn Garcia on 08-14-2021 Estimated GFR () > 60 mL/Min [facility] Comment on above: GFR estimated refere nce range: According to KDOQI guidelines, <60 ml/min/1.73m2 is sufficient to diagnose a patient with chronic kidney disease. Pharmacy Creatinine Clearance (Chem N/A [facility] Phosphate [Mass/volume] in S jill or PlasmaOrdered By: Lynn Garcia on 08-14-2021 Phosphate [Mass/Vol] 2.5 mg/dL 2.5-4.6 [facility] Platelet mean volume Auto (B ld) [Entitic vol]Ordered By: Lynn Garcia on 08-14-2021 Platelet mean volume (Bld) [Entitic vol] 7.8 fL 6.6-10.1 [facility] Platelets Auto (Bld) [#/Vol] Ordered By: Lynn Garcia on 08-14-2021 Platelets (Bld) [#/Vol] 206 10*3/uL 150-450 [facility] Protein [Mass/volume] in Uri neOrdered By: Lynn Garcia on 08-14-2021 Protein (U) [Mass/Vol] mg/dL 0-9 Fi [facility] RBC Auto (Bld) [#/Vol]Ordere d By: Lynn Garcia on 08-14-2021 RBC (Bld) [#/Vol] 4.01 10*6/uL 3.90-5.60 [facility] Serum or plasma calcium pedro urement (mass/volume)Ordered By: Lynn Garcia on 08-14-2021 Calcium [Mass/Vol] 9.9 mg/dL 8.2-10.2 [facility] Serum or plasma chloride ira surement (moles/volume)Ordered By: Lynn Garcia on 08-14-2021 Chloride [Moles/Vol] 102 mmol/L 95-114 [facility] Serum or plasma glucose pedro urement (mass/volume)Ordered By: Lynn Garcia on 08-14-2021 Glucose [Mass/Vol] 94 mg/dL 70-100 [facility] Comment on above: ADA recommended refe rence range Random Glucose Reference Range is dependent on time and content of last meal. Glucose of more than 200 mg/dL in a nonstressed, ambulatory subject supports the diagnosis of Diabetes Mellitus. Serum or plasma intact parat hyroid hormone measurement (mass/volume)Ordered By: Lynn Garcia on 08-14-2021 Parathyrin.intact [Mass/Vol] 67.0 pg/mL 12 [facility] Serum or plasma potassium me asurement (moles/volume)Ordered By: Lynn Garcia on 08-14-2021 Potassium [Moles/Vol] 4.4 mmol/L 3.5-5.1 [facility] Serum or plasma sodium measu rement (moles/volume)Ordered By: Lynn Garcia on 08-14-2021 Sodium [Moles/Vol] 140 mmol/L 136-146 [facility] Serum or plasma total carbon dioxide measurement (moles/volume)Ordered By: Lynn Garcia on 08-14-2021 CO2 [Moles/Vol] 24.0 mmol/L 22.0-30.0 [facility] Serum or plasma urea nitroge n measurement (mass/volume)Ordered By: Lynn Garcia on 08-14-2021 Urea nitrogen [Mass/Vol] 18 mg/dL 9- [facility] Urine protein/creatinine rat ioOrdered By: Lynn Garcia on 08-14-2021 Protein/Creatinine (U) [Ratio] TNP [facility] Comment on above: Test not performed WBC Auto (Bld) [#/Vol]Ordere d By: Lynn Garcia on 08-14-2021 WBC (Bld) [#/Vol] 4.9 10*3/uL 4.1-10.5 [facility] CBC with Diffon 05-10-2021 AB IMMATURE NEUT 0.03 K/UL Normal 0.0-0.1 [facility] ABS BASO 0.02 K/UL Normal 0.00-0.22 [facility] ABS EOS 0.13 K/UL Normal 0-0.45 [facility] ABS NEUTROPHILS 3.50 K/UL Normal 1.8-7.7 [facility] ABS.NEUT.CALCULATED 3.50 K/UL Normal [facility] Comment on above: Result Comment: Perf ormed at [place] [address] [facility] [address] Basophils/100 WBC (Bld) 0.40 % Normal 0-1 L [facility] DIFF TYPE AUTO DIFF Normal [facility] Eosinophils/100 WBC (Bld) 2.40 % Normal 0-3 [facility] Erythrocyte distribution width (RBC) [Ratio] 12.6 % Normal 11.7-15.0 [facility] Hematocrit (Bld) [Volume fraction] 36.2 % Low 41-50 [facility] Hemoglobin (Bld) [Mass/Vol] 12.2 g/dL Low 13.5-16.5 [facility] Lymphocytes (Bld) [#/Vol] 1.46 10*3/uL Normal 1.2-3.2 [facility] Lymphocytes/100 WBC (Bld) 26.40 % Normal 20-40 [facility] MCH (RBC) [Entitic mass] 31.0 pg Normal 26-34 [facility] MCHC 33.7 % Normal 31-37 [facility] MCV (RBC) [Entitic vol] 92.1 fL Normal 80-100 L [facility] MEAN PLT VOL 9.3 CU Normal 7.0-12.6 [facility] Monocytes (Bld) [#/Vol] 0.38 10*3/uL Normal 0-0.8 [facility] Monocytes/100 WBC (Bld) 6.90 % Normal 0-8 L [facility] Neutrophils/100 WBC (Bld) 0.50 % Normal 0.0-1.0 [facility] Neutrophils/100 WBC (Bld) 63.40 % Normal 50-70 [facility] Platelets (Bld) [#/Vol] 208 10*3/uL Normal 150-450 [facility] RBC (Bld) [#/Vol] 3.93 10*6/uL Low 4.5-5.5 [facility] RDW-SD 43.1 FL Normal 37.0-54.0 [facility] WBC (Bld) [#/Vol] 5.5 10*3/uL Normal 4.5-11.0 [facility] COMPREHENSIVE METABOLIC PANE Dima 07-16-2020 Anion gap [Moles/Vol] 8 mmol/L Normal 0-19 [facility] AST [Catalytic activity/Vol] 16 U/L Normal 5-40 [facility] Chloride [Moles/Vol] 104 mmol/L Normal 97-107 [facility] Albumin [Mass/Vol] 4.3 g/dL Normal 3.5-5.0 [facility] Albumin/Globulin [Mass ratio] 1.4 {ratio} Low 1.5-3.0 [facility] ALP [Catalytic activity/Vol] 70 U/L Normal 35-125 [facility] ALT [Catalytic activity/Vol] 9 U/L Normal 5-40 [facility] [facility] Bilirubin [Mass/Vol] 0.3 mg/dL Normal 0.1-1.2 [facility] Calcium [Mass/Vol] 10.6 mg/dL High 8.5-10.4 [facility] CO2 [Moles/Vol] 28 mmol/L Normal 24-31 [facility] Creatinine [Mass/Vol] 1.4 mg/dL Normal 0.4-1.6 [facility] ESTIMATED GFR 52 mL/min/1.73 m2 Normal [facility] Comment on above: Result Comment: GFR ml/min/1.73m2 Stage ----- 90 1 60-89 2 30-59 3 15-29 4 <15 5 For -Americans, multiply EGFR result by 1.210 Calculation not validated for patients under 18 years of age. Performed at [place] [address] [facility] [address] Globulin (S) [Mass/Vol] 3.0 g/dL Normal 1.9-3.7 L [facility] Glucose [Mass/Vol] 110 mg/dL High 65-99 [facility] Potassium [Moles/Vol] 4.2 mmol/L Normal 3.4-5.1 [facility] Protein [Mass/Vol] 7.3 g/dL Normal 5.9-7.9 [facility] Sodium [Moles/Vol] 140 mmol/L Normal 133-145 [facility] Urea nitrogen [Mass/Vol] 30 mg/dL High 8-25 [facility] Urea nitrogen/Creatinine [Mass ratio] 21.4 mg/mg High 8-21 [facility] EKGon 07-16-2020 Electrocardiogram EKG Ventricular Rate : 82 BPM Atrial Rate : 82 BPM P-R Interval : 170 ms QRS Duration : 100 ms Q-T Interval : 360 ms QTC Calculation(Bazett) : 420 ms Calculated P [place] : -4 degrees Calculated R [place] : -10 degrees Calculated T [place] : 57 degrees Diagnosis:Sinus rhythm with occasional Premature ventricular complexes Otherwise normal ECG No previous ECGs available Confirmed by SOPHIA CANCINO ([id number]) on 07/18/2020 11:06:00 PM [facility] SARS-CoV-2,INFLUENZA A/B NUC LEIC ACID TESTon 07-16-2020 EUA DISCLAIMER Normal [facility] Comment on above: Result Comment: This test [...] is terminated or revoked sooner. Performed at [place] [address] [facility] [address] FLU A by PCR Negative Normal [facility] FLU B by PCR Negative [facility] SARS-CoV-2 (COVID-19) RNA NAMRATA+probe Ql (Unsp spec) Negative Normal NEG [facility] UA-REFLEX TO CULTUREon 07-16 RBC NONE SEEN Normal 0-3 [facility] Urinalysis dipstick W Reflex Microscopic panel (U) MANUAL MICROSCOPIC URINES Normal [facility] WBC NONE SEEN Normal 0-3 [facility] Bacteria identified Cx Nom (U) Normal [facility] Comment on above: Result Comment: CULT URE NOT INDICATED Performed at [place] [address] [address] [facility] [address] BILI Negative Normal NEG [facility] Clarity (U) CLEAR Normal [facility] Color (U) YELLOW Normal [facility] GLUC Negative Normal NEG [facility] Hemoglobin Ql (U) Negative Normal NEG [facility] KET Negative Normal NEG [facility] LEUK Negative Normal NEG [facility] NIT Negative Normal NEG [facility] pH (U) 6.5 [pH] Normal 4.6-8.0 [facility] PROT Negative Normal NEG [facility] SP GRAV,URINE 1.015 Normal 1.005-1.030 [facility] URO 0.2 MG/DL Normal 0-1.0 [facility] CBC (INCLUDES DIFF/PLT)on Basophils (Bld) [#/Vol] 0.031 10*3/uL Normal 0-200 [facility] Comment on above: Performed By: #### 4 57, 6399 #### [facility] [place] [address] Clerical Transcriber: Catrachito Mata MD Basophils/100 WBC (Bld) 0.6 % Normal [facility] Comment on above: Performed By: #### 4 57, 6399 #### [facility] [place] [address] Clerical Transcriber: Catrachito Mata MD Eosinophils (Bld) [#/Vol] 0.138 10*3/uL Normal 15-500 [facility] Comment on above: Performed By: #### 4 57, 6399 #### [facility] [place] [address] Clerical Transcriber: Catrachito Mata MD Eosinophils/100 WBC (Bld) 2.7 % Normal [facility] Comment on above: Performed By: #### 4 57, 6399 #### [facility] [place] [address] Clerical Transcriber: Catrachito Mata MD Erythrocyte distribution width (RBC) [Ratio] 13.6 % Normal 11.0-15.0 [facility] Comment on above: Performed By: #### 4 57, 6399 #### [facility] of [place] [address] Clerical Transcriber: Catrachito Mata MD Hematocrit (Bld) [Volume fraction] 33.9 % Low 38.5-50.0 [facility] Comment on above: Performed By: #### 4 57, 6399 #### [facility] [place] [address] Clerical Transcriber: Catrachito Mata MD Hemoglobin (Bld) [Mass/Vol] 11.8 g/dL Low 13.2-17.1 [facility] Comment on above: Performed By: #### 4 57, 6399 #### [facility] of [place] [address] Clerical Transcriber: Catrachito Mata MD Lymphocytes (Bld) [#/Vol] 1.239 10*3/uL Normal 850-3900 [facility] Comment on above: Performed By: #### 4 57, 6399 #### [facility] of [place] [address] Clerical Transcriber: Catrachito Mata MD Lymphocytes/100 WBC (Bld) 24.3 % Normal [facility] Comment on above: Performed By: #### 4 57, 6399 #### [facility] [place] [address] Clerical Transcriber: Catrachito Mata MD MCH (RBC) [Entitic mass] 31.8 pg Normal 27.0-33.0 [facility] Comment on above: Performed By: #### 4 57, 6399 #### [facility] of [place] [address] Clerical Transcriber: Catrachito Mata MD MCHC (RBC) [Mass/Vol] 34.8 g/dL Normal 32.0-36.[address] [facility] Comment on above: Performed By: #### 4 57, 6399 #### [facility] of [place] [id number] Clerical Transcriber: Catrachito Mata MD MCV (RBC) [Entitic vol] 91.4 fL Normal 80.0-100.0 [facility] Comment on above: Performed By: #### 4 57, 6399 #### [facility] [place] [address] Clerical Transcriber: Catrachito Mata MD Monocytes (Bld) [#/Vol] 0.469 10*3/uL Normal 200-950 [facility] Comment on above: Performed By: #### 4 57, 6399 #### [facility] [place] [address] Clerical Transcriber: Catrachito Mata MD Monocytes/100 WBC (Bld) 9.2 % Normal [facility] Comment on above: Performed By: #### 4 57, 6399 #### [facility] [place] [address] Clerical Transcriber: Catrachito Mata MD Neutrophils (Bld) [#/Vol] 3.223 10*3/uL Normal 9261-8784 [facility] Comment on above: Performed By: #### 4 57, 6399 #### [facility] [place] [address] Clerical Transcriber: Catrachito Mata MD Neutrophils/100 WBC (Bld) 63.2 % Normal [facility] Comment on above: Performed By: #### 4 57, 6399 #### [facility] [place] [address] Clerical Transcriber: Catrachito aMta MD Platelet mean volume (Bld) [Entitic vol] 10.0 fL Normal 7.5-12.5 [facility] Comment on above: Performed By: #### 4 57, 6399 #### [facility] [place] [address] Clerical Transcriber: Catrachito Mata MD Platelets (Bld) [#/Vol] 211 10*3/uL Normal 140-400 [facility] Comment on above: Performed By: #### 4 57, 6399 #### [facility] of [address], [address] [place] [address] Clerical Transcriber: Catrachito Mata MD RBC (Bld) [#/Vol] 3.71 10*6/uL Low 4.20-5.80 [facility] Comment on above: Performed By: #### 4 57, 6399 #### [facility] of [address], [address] [place] [address] Clerical Transcriber: Catrachito Mata MD WBC (Bld) [#/Vol] 5.1 10*3/uL Normal 3.8-10.8 [facility] Comment on above: Performed By: #### 4 57, 6399 #### [facility] of [address], [address] [place] [address] Clerical Transcriber: Catrachito Mata MD FERRITINon 05-31-2020 Ferritin [Mass/Vol] 247 ng/mL Normal 24-380 [facility] Comment on above: Performed By: #### 4 57, 6399 #### [facility] of [address], [address] [place] [address] Clerical Transcriber: Catrachito Mata MD TRANSFERRINon 05-31-2020 Transferrin [Mass/Vol] 229 mg/dL Normal 188-341 [facility] Comment on above: Performed By: #### 4 57, 6399 #### [facility] [place] [address] Clerical Transcriber: Catrachito Mata MD COVID-19 Positive/Negativeon 03-16-2020 COVID-19 Positive/Negative Negative Negative [facility] Comment on above: Testing for SARS-CoV -2 by RT-PCRThis test was developed and its performance characteristics determined by [employer] (BD) and validated at the [facility]. This test has not been FDA [...] Otheron 03-16-2020 Coronavirus 2019 PCR Interp N/A [facility] Automated basophil %on 03-12 Basophils/100 WBC (Bld) 0.7 % F [facility] Automated basophil counton 0 03-12-2020 Basophils (Bld) [#/Vol] 0.0 10*3/uL 0.0-0.2 [facility] Automated blood lymphocyte c ount (number/volume)on 03-12-2020 Lymphocytes (Bld) [#/Vol] 1.1 10*3/uL 1.00-4.8 [facility] Automated blood lymphocyte c ount as percentage of total leukocyteson 03-12-2020 Lymphocytes/100 WBC (Bld) 25.0 % [facility] Automated blood monocyte cou nton 03-12-2020 Monocytes (Bld) [#/Vol] 0.5 10*3/uL 0.0-0.8 [facility] Automated blood platelet cou nt (count/volume)on 03-12-2020 Platelets (Bld) [#/Vol] 196 10*3/uL 150-450 [facility] Automated blood platelet ira n volume measurementon 03-12-2020 Platelet mean volume (Bld) [Entitic vol] 7.9 fL 6.6-10.1 [facility] Automated eosinophil %on Eosinophils/100 WBC (Bld) 3.3 % [facility] Automated eosinophil counton 03-12-2020 Eosinophils (Bld) [#/Vol] 0.1 10*3/uL 0.0-0.45 [facility] Automated erythrocyte distri bution width ratioon 03-12-2020 Erythrocyte distribution width (RBC) [Ratio] 13.8 % 12.0-14.8 [facility] Automated erythrocyte mean c orpuscular hemoglobin (mass per erythrocyte)on 03-12-2020 MCH (RBC) [Entitic mass] 31.1 pg 27.5-35.2 [facility] Automated erythrocyte mean c orpuscular hemoglobin concentration measurement (mass/volon 03-12-2020 MCHC (RBC) [Mass/Vol] 34.1 g/dL 32.5-35.6 [facility] Automated erythrocyte mean c orpuscular volumeon 03-12-2020 MCV (RBC) [Entitic vol] 91.3 fL 83.5-101 F [facility] Automated monocyte %on 03-12 Monocytes/100 WBC (Bld) 10.8 % F [facility] Automated neutrophil %on Neutrophils/100 WBC (Bld) 60.2 % [facility] Blood erythrocytes automated count (number/volume)on 03-12-2020 RBC (Bld) [#/Vol] 3.98 10*6/uL 3.90-5.60 [facility] Blood hemoglobin measurement (mass/volume)on 03-12-2020 Hemoglobin (Bld) [Mass/Vol] 12.4 g/dL 13.0-17.0 [facility] Blood leukocytes automated c ount (number/volume)on 03-12-2020 WBC (Bld) [#/Vol] 4.5 10*3/uL 4.5-11.0 [facility] Blood neutrophil count by au tomated method (number/volume)on 03-12-2020 Neutrophils (Bld) [#/Vol] 2.7 10*3/uL 1.8-7.7 [facility] Estimated glomerular filtrat ion rate (GFR) non- Americanon 03-12-2020 GFR/1.73 sq M predicted among non-blacks MDRD (S/P/Bld) [Vol rate/Area] 42 mL/min/{1.73_m2} [facility] Hematocrit [Volume Fraction] of Blood by Automated counton 03-12-2020 Hematocrit (Bld) [Volume fraction] 36.3 % 38.8-50.0 [facility] Otheron 03-12-2020 GFR/1.73 sq M.predicted MDRD (S/P/Bld) [Vol rate/Area] 51 mL/min/{1.73_m2} [facility] Comment on above: GFR estimated refere nce range: According to KDOQI guidelines, <60 ml/min/1.73m2 is sufficient to diagnose a patient with chronic kidney disease. Nucleated RBC/100 WBC (Bld) [Ratio] 0.2 % 0-0.5 [facility] Creatinine Clearance (Chem N/A [facility] Serum or plasma calcium pedro urement (mass/volume)on 03-12-2020 Calcium [Mass/Vol] 10.1 mg/dL 8.2-10.2 [facility] Serum or plasma chloride ira surement (moles/volume)on 03-12-2020 Chloride [Moles/Vol] 101 mmol/L 95-114 [facility] Serum or plasma creatinine m easurement with calculation of estimated glomerular filtron 03-12-2020 Creatinine [Mass/Vol] 1.59 mg/dL 0.64-1.27 [facility] Serum or plasma glucose pedro urement (mass/volume)on 03-12-2020 Glucose [Mass/Vol] 93 mg/dL 70-100 [facility] Comment on above: ADA recommended refe rence rangeRandom Glucose Reference Range is dependent on time and content of last meal. Glucose of more than 200 mg/dL in a nonstressed, ambulatory subject supports the diagnosis of Diabetes Mellitus. Serum or plasma potassium me asurement (moles/volume)on 03-12-2020 Potassium [Moles/Vol] 4.1 mmol/L 3.5-5.1 [facility] Serum or plasma sodium measu rement (moles/volume)on 03-12-2020 Sodium [Moles/Vol] 137 mmol/L 136-146 [facility] Serum or plasma total carbon dioxide measurement (moles/volume)on 03-12-2020 CO2 [Moles/Vol] 24.3 mmol/L 22.0-30.0 [facility] Serum or plasma urea nitroge n measurement (mass/volume)on 03-12-2020 Urea nitrogen [Mass/Vol] 26 mg/dL 11-29 [facility] MAGNESIUMon 02-09-2020 Magnesium [Mass/Vol] 2.0 mg/dL Normal 1.5-2.5 [facility] Comment on above: Performed By: #### 7 18, 622, 905 #### [facility], [address] [place] [address] Clerical Transcriber: Catrachito Mata MD PHOSPHATE ( PHOSPHORUS)on 02-09-2020 Phosphate [Mass/Vol] 2.8 mg/dL Normal 2.1-4.3 [facility] Comment on above: Performed By: #### 7 18, 812, 905 #### [facility], [address] [place], [place] [id number] Clerical Transcriber: Catrachito Mata MD URIC ACIDon 02-09-2020 Urate [Mass/Vol] 7.2 mg/dL Normal 4.0-8.0 [facility] Comment on above: Result Comment: Ther apeutic target for gout patients: <6.0 mg/dL NO COLLECTION DATE RECEIVED. WE HAVE USED THE DATE THE SPECIMEN WAS RECEIVED BY THIS LABORATORY THE COLLECTION DATE. IF THIS IS INCORRECT, PLEASE CONTACT CLIENT SERVICES. PHONE NUMBER: [phone] Performed By: #### 7 18, 275, 909 #### [facility], [address] [place], [place] [id number] Clerical Transcriber: Catrachito Mata MD URIC ACIDon 08-05-2019 Urate [Mass/Vol] 7.2 mg/dL Normal 4.0-8.0 [facility] Comment on above: Result Comment: Ther apeutic target for gout patients: <6.0 mg/dL NO COLLECTION DATE RECEIVED. WE HAVE USED THE DATE THE SPECIMEN WAS RECEIVED BY THIS LABORATORY THE COLLECTION DATE. IF THIS IS INCORRECT, PLEASE CONTACT CLIENT SERVICES. PHONE NUMBER: [phone] Performed By: #### 9 05 #### [facility], [address] [place] [address] Clerical Transcriber: Catrachito Mata MD Vital Signs Date Time Vital Sign Value Performing Clinician Facility 08-19-2023 14:07-0400 Body height 182.25 cm [employer] Robertaganesh Patino Work Phone: [facility] 08-19-2023 14:07-0400 Body mass index (BMI) [Ratio] 28.3 kg/m2 [employer] Roberta Cherry Work Phone: [facility] 08-19-2023 14:07-0400 Body temperature 97.5 [degF] [employer] Robertaganesh Patino Work Phone: [facility] 08-19-2023 14:07-0400 Body weight 93.89 kg [employer] Roberta Cherry Work Phone: [facility] 08-19-2023 14:07-0400 Diastolic blood pressure 76 mm[Hg] [employer]ERCIAL ATTACHEAbel Patino Work Phone: [facility] 08-19-2023 14:07-0400 Heart rate 96 /min [employer] Robertaganesh Davalossler Work Phone: [facility] 08-19-2023 14:07-0400 Respiratory rate 16 /min [employer]ERCIAL ATTACHEAbel Davalossler Work Phone: [facility] 08-19-2023 14:07-0400 SaO2% (BldA) [Mass fraction] 98 % [employer]ERCIAL ATTACHEAbel Patino Work Phone: [facility] 08-19-2023 14:07-0400 Systolic blood pressure 124 mm[Hg] COMMERCIAL ATTACHEAbel Davalossler Work Phone: [facility] 07-21-2023 10:35-0400 Diastolic blood pressure 71 mm[Hg] [employer] Robertaganesh Davalossler Work Phone: [facility] 07-21-2023 10:35-0400 Heart rate 84 /min COMMERCIAL ATTACHEAbel Davalossler Work Phone: [facility] 07-21-2023 10:35-0400 Respiratory rate 16 /min [employer]ER[employer] ATTACHEAbel Patino Work Phone: [facility] 07-21-2023 10:35-0400 SaO2% (BldA) [Mass fraction] 97 % LINDA Patino Work Phone: [facility] 07-21-2023 10:35-0400 Systolic blood pressure 126 mm[Hg] COMMERCIAL ATTACHEAbel Patino Work Phone: [facility] 07-21-2023 10:02-0400 Inhaled oxygen flow rate 3 L/min [employer]ACHEAbel Patino Work Phone: [facility] 07-21-2023 09:20-0400 Body height 182.88 cm LINDA Patino Work Phone: [facility] 07-21-2023 09:20-0400 Body weight 93.44 kg LINDA Patino Work Phone: [facility] 06-25-2023 10:14-0400 Body height 185.42 cm COMMERCIAL ATTACHEAbel Patino Work Phone: [facility] 06-25-2023 10:14-0400 Body mass index (BMI) [Ratio] 28 kg/m2 LINDA Patino Work Phone: [facility] 06-25-2023 10:14-0400 Body weight 96.61 kg LINDA Patino Work Phone: [facility] 02-18-2023 14:00-0500 Body height 185.42 cm Clever Cloud[employer] Other [facility] [employer] Other 02-18-2023 14:00-0500 Body mass index (BMI) [Ratio] 27.86 kg/m2 Clever Cloudarianna [employer] Other [employer] Other 02-18-2023 14:00-0500 Body temperature 98.8 [degF] Aziz Bakanastasias Other [employer] Other 02-18-2023 14:00-0500 Body weight 95.8 kg Azarianna Bakhous Other [employer] Other 02-18-2023 14:00-0500 Diastolic blood pressure 81 mm[Hg] Aziz Bakhous Other [employer] Other 02-18-2023 14:00-0500 Respiratory rate 18 /min Cristofer Walliss Other [employer] Other 02-18-2023 14:00-0500 SaO2% (BldA) [Mass fraction] 97 % Cristofer Bakhous Other [employer] Other 02-18-2023 14:00-0500 Systolic blood pressure 144 mm[Hg] Aziz Bakhous Other [employer] Other 08-26-2022 15:00-0400 Body height 185.42 cm Cristofer Bakanastasias Other [employer] Other 08-26-2022 15:00-0400 Body mass index (BMI) [Ratio] 26.91 kg/m2 Azarianna Bakhous Other [employer] Other 08-26-2022 15:00-0400 Body temperature 97.3 [degF] Aziz Bakhous Other [employer] Other 08-26-2022 15:00-0400 Body weight 92.53 kg Azarianna Bakhous Other [employer] Other 08-26-2022 15:00-0400 Diastolic blood pressure 73 mm[Hg] Azarianna Walliss Other [employer] Other 08-26-2022 15:00-0400 Respiratory rate 18 /min Cristofer Walliss Other [employer] Other 08-26-2022 15:00-0400 SaO2% (BldA) [Mass fraction] 98 % Cristofer Odonnell Other [employer] Other 08-26-2022 15:00-0400 Systolic blood pressure 119 mm[Hg] Cristofer Walliss Other [employer] Other 06-10-2022 14:40-0400 Body height 185.42 cm Willian Nuñez Other [employer] Other 06-10-2022 14:40-0400 Body mass index (BMI) [Ratio] 27.7 kg/m2 Willian Nuñez Other [employer] Other 06-10-2022 14:40-0400 Body weight 95.26 kg Willian Nuñez Other [employer] Other 06-10-2022 14:40-0400 Diastolic blood pressure 62 mm[Hg] Willian Nuñez Other [employer] Other 06-10-2022 14:40-0400 Systolic blood pressure 170 mm[Hg] Willian Nuñez Other [employer] Other 02-18-2022 17:20-0500 Body height 185.42 cm Cristofer Walliss Other [employer] Other 02-18-2022 17:20-0500 Body mass index (BMI) [Ratio] 27.73 kg/m2 Cristofer Odonnell Other [employer] Other 02-18-2022 17:20-0500 Body temperature 96.9 [degF] Cristofer Odonnell Other [employer] Other 02-18-2022 17:20-0500 Body weight 95.35 kg Cristofer Odonnell Other [employer] Other 02-18-2022 17:20-0500 Diastolic blood pressure 89 mm[Hg] Cristofer Odonnell Other [employer] Other 02-18-2022 17:20-0500 Respiratory rate 18 /min Cristofer Odonnell Other [employer] Other 02-18-2022 17:20-0500 SaO2% (BldA) [Mass fraction] 97 % Cristofer Odonnell Other [employer] Other 02-18-2022 17:20-0500 Systolic blood pressure 166 mm[Hg] Cristofer Odonnell Other [employer] Other 10-29-2021 12:20-0400 Body height 185.42 cm Willian Nuñez Other [employer] Other 10-29-2021 12:20-0400 Body mass index (BMI) [Ratio] 27.7 kg/m2 Willian Nuñez Other [employer] Other 10-29-2021 12:20-0400 Body weight 95.26 kg Willian Nuñez Other [employer] Other 08-21-2021 16:00-0400 Body height 185.42 cm Cristofer Walliss Other [employer] Other 08-21-2021 16:00-0400 Body mass index (BMI) [Ratio] 27.73 kg/m2 Azarianna Walliss Other [employer] Other 08-21-2021 16:00-0400 Body temperature 96.5 [degF] Cristofer Walliss Other [employer] Other 08-21-2021 16:00-0400 Body weight 95.35 kg Cristofer Walliss Other [employer] Other 08-21-2021 16:00-0400 Diastolic blood pressure 71 mm[Hg] Azarianna Walliss Other [employer] Other 08-21-2021 16:00-0400 Respiratory rate 18 /min Cristofer Walliss Other [employer] Other 08-21-2021 16:00-0400 SaO2% (BldA) [Mass fraction] 96 % Cristofer Walliss Other [employer] Other 08-21-2021 16:00-0400 Systolic blood pressure 125 mm[Hg] Azarianna Walliss Other [employer] Other 07-30-2021 12:00-0400 Body height 185.42 cm Willian Nuñez Other [employer] Other 07-30-2021 12:00-0400 Body mass index (BMI) [Ratio] 28.76 kg/m2 Willian Nuñez Other [employer] Other 07-30-2021 12:00-0400 Body weight 98.88 kg Willian Nuñez Other [employer] Other 07-15-2021 11:00-0400 Body height 185.42 cm Willian Nuñez Other [employer] Other 07-15-2021 11:00-0400 Body mass index (BMI) [Ratio] 27.84 kg/m2 Willian Nuñez Other [employer] Other 07-15-2021 11:00-0400 Body weight 95.71 kg Willian Nuñez Other [employer] Other 04-25-2021 14:00-0500 Body height 185.42 cm Willian Nuñez Other [facility] Other 04-25-2021 14:00-0500 Body mass index (BMI) [Ratio] 27.84 kg/m2 Willian Nuñez Other [employer] Other 04-25-2021 14:00-0500 Body weight 95.71 kg Willian Nuñez Other [employer] Other 03-14-2021 15:40-0500 Body height 185.42 cm Willian Nuñez Other [employer] Other 03-14-2021 15:40-0500 Body mass index (BMI) [Ratio] 27.84 kg/m2 Willian Nuñez Other [employer] Other 03-14-2021 15:40-0500 Body weight 95.71 kg Willian Nuñez Other [employer] Other 12-13-2020 15:40-0400 Body height 185.42 cm Willian Nuñez Other [employer] Other 12-13-2020 15:40-0400 Body mass index (BMI) [Ratio] 28.36 kg/m2 Willian Nuñez Other [employer] Other 12-13-2020 15:40-0400 Body weight 97.52 kg Willian Nuñez Other [employer] Other 12-13-2020 15:40-0400 Diastolic blood pressure 75 mm[Hg] Willian Nuñez Other [employer] Other 12-13-2020 15:40-0400 Systolic blood pressure 130 mm[Hg] Willian Nuñez Other [employer] Other Encounters Encounter Date Encounter Type Care Provider Facility Start: 12-25-2023 End: 12-28-2023 Refill Latasha Gutierrez APRN-MAYRA Work Phone: [facility] Comment on above: Enlarged prostate wi th urinary obstruction Start: 10-27-2023 End: 10-27-2023 ambulatory [facility] Start: 10-22-2023 End: 10-22-2023 ambulatory [facility] Work Phone: Start: 10-22-2023 End: 10-22-2023 Patient encounter procedure [facility] Physician [facility] Work Phone: Start: 10-14-2023 End: 10-14-2023 ambulatory LINDA Patino Work Phone: [facility] Work Phone: Start: 10-14-2023 End: 10-14-2023 Patient encounter procedure LINDA Patino Work Phone: [facility] Work Phone: Start: 10-14-2023 Non-patient / Non-visit [facility] Work Phone: Start: 10-07-2023 Patient encounter status Latasha Gutierrez 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 Phone: [facility] Start: 10-07-2023 End: 10-07-2023 ambulatory [facility] [facility] Start: 09-24-2023 End: 09-24-2023 ambulatory COMMERCIAL ATTACHE Roberta Patino Work Phone: [facility] Work Phone: Start: 09-24-2023 End: 09-24-2023 Patient encounter procedure LINDA Patino Work Phone: [facility] Physician [facility] Work Phone: Start: 09-18-2023 End: 09-18-2023 ambulatory LINDA Patino Work Phone: [facility] Work Phone: Start: 09-18-2023 End: 09-18-2023 Patient encounter procedure LINDA Saucedoith Cherry Work Phone: [facility] Work Phone: Start: 08-31-2023 End: 08-31-2023 ambulatory ROBERTA PATINO [facility] Start: 08-26-2023 Non-patient / Non-visit COMMERCIAL ATTACHE Negro Patino Work Phone: [facility] Physician [facility] Work Phone: Start: 08-19-2023 End: 08-19-2023 ambulatory LINDA Patino Work Phone: [facility] Work Phone: Start: 08-19-2023 End: 08-19-2023 Patient encounter procedure LINDA Granados Cherry Work Phone: [facility] Work Phone: Start: 08-18-2023 End: 08-18-2023 ambulatory LINDA Saucedoganesh Hager Cherry Work Phone: [facility] Work Phone: Start: 08-18-2023 End: 08-18-2023 Patient encounter procedure COMMERCIAL ATTACHEAbel Granados Cherry Work Phone: [facility] Work Phone: Start: 08-17-2023 End: 08-17-2023 ambulatory [facility] Start: 07-21-2023 End: 07-21-2023 ambulatory Angel Carbajal Facility:[facility] Start: 07-21-2023 Non-patient / Non-visit LINDA Negro liam Patino Work Phone: [facility] Work Phone: Start: 07-21-2023 End: 07-21-2023 Admission to same day surgery center COMMERCIAL ATTACHE Roberta Cherry Work Phone: [facility] Work Phone: Start: 07-16-2023 End: 07-16-2023 ambulatory Angel Carbajal Facility:[facility] Start: 07-16-2023 End: 07-16-2023 ambulatory LINDA Saucedoith Madan Patino Work Phone: [facility] Work Phone: Start: 07-16-2023 End: 07-16-2023 Patient encounter procedure LINDA Granados Cherry Work Phone: [facility] Work Phone: Start: 06-25-2023 End: 06-25-2023 ambulatory Willian Nuñez Facility:[facility] Start: 06-25-2023 End: 06-25-2023 ambulatory [employer]CIAL [employer]ACHE Roberta Patino Work Phone: [facility] Work Phone: Start: 06-25-2023 End: 06-25-2023 Patient encounter procedure COMMERCIAL ATTACHE Roberta Patino Work Phone: [facility] Work Phone: Start: 05-29-2023 Refill Rajani Thorne CNA [facility] Comment on above: Essential hypertensi on, benign Start: 05-14-2023 Telephone encounter Rajani Thorne CNA [facility] Comment on above: Care Management Start: 04-06-2023 Refill Roberta blount 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 Phone: [facility] Start: 03-12-2023 Orders Only Roberta blount 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 Phone: [facility] Comment on above: Dermatitis Start: 02-25-2023 End: 02-25-2023 ambulatory ROBERTA PATINO [facility] Start: 02-18-2023 End: 02-18-2023 ambulatory Aziz Bakhous Other [facility] [employer] Other Start: 02-18-2023 Office outpatient vi sit 25 minutes Aziz Bakhous [facility] Start: 08-26-2022 End: 08-26-2022 ambulatory Aziz Bakhous Other [facility] [employer] Other Start: 08-26-2022 Office outpatient vi sit 15 minutes Aziz Bakhous [facility] Start: 06-10-2022 End: 06-10-2022 ambulatory Willian Nuñez Other [facility] [employer] Other Start: 06-10-2022 Office outpatient vi sit 15 minutes Willian Nuñez [facility] Neurosurgery Start: 02-18-2022 End: 02-18-2022 ambulatory Aziz Bakhous Other [employer] Other Start: 02-18-2022 Office outpatient vi sit 15 minutes Aziz Bakhous [facility] Start: 02-04-2022 End: 02-04-2022 ambulatory COMMERCIAL ATTACHE Roberta A Cherry Work Phone: [facility] Work Phone: Start: 02-04-2022 End: 02-04-2022 Patient encounter procedure COMMERCIAL ATTACHE Roberta Cherry Work Phone: [facility] Start: 10-29-2021 End: 10-29-2021 ambulatory Willian Nuñez Other [facility] [employer] Other Start: 10-29-2021 Office outpatient vi sit 15 minutes Willian Nuñez [facility] Start: 10-29-2021 End: 10-29-2021 Patient encounter procedure LINDA Saucedoith Cherry Work Phone: [facility] Start: 09-24-2021 Encounter for genera l adult medical examination without abnormal findings ROBERTAGANESH PATINO [facility] Start: 09-24-2021 Patient encounter procedure Roberta Patino 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 Phone: [facility] Start: 08-21-2021 End: 08-21-2021 ambulatory Aziz Bakhous Other [employer] Other Start: 08-21-2021 Office outpatient vi sit 15 minutes Aziz Bakhous [facility] Nephrology Start: 08-14-2021 End: 08-14-2021 Patient encounter procedure COMMERCIAL ATTACHE Roberta Chrery Work Phone: [facility] Start: 07-30-2021 End: 07-30-2021 ambulatory Willian Nuñez Other [employer] Other Start: 07-30-2021 Postop follow up vis it related to original px Willian Nuñez [facility] Neurosurgery Start: 07-15-2021 (Post-Op) Post-Op Willian Nuñez [facility] Start: 07-15-2021 End: 07-15-2021 ambulatory Willian Nuñez Other [employer] Other Start: 07-08-2021 End: 07-08-2021 ambulatory Willian Nuñez Other [employer] Other Start: 07-08-2021 Telephone encounter Willian Nuñez [facility] Neurosurgery Start: 07-01-2021 Admission to [facility] Willian Nuñez [facility] Start: 07-01-2021 End: 07-01-2021 ambulatory Willian Nuñez Other [employer] Other Start: 06-28-2021 End: 06-28-2021 ambulatory Lynn Garcia Other [employer] Other Start: 06-28-2021 Telephone encounter Lynn Garcia [facility] Nephrology Start: 04-25-2021 End: 04-25-2021 ambulatory Willian Nuñez Other [employer] Other Start: 04-25-2021 Office outpatient vi sit 15 minutes Willian Nuñez [facility] Neurosurgery Start: 04-10-2021 End: 04-10-2021 ambulatory Willian Nuñez Other [employer] Other Start: 04-10-2021 Telephone encounter Willian Nuñez [facility] Neurosurgery Start: 03-14-2021 End: 03-14-2021 ambulatory Willian Nuñez Other [employer] Other Start: 03-14-2021 Office outpatient vi sit 15 minutes Willian Nuñez [facility] Neurosurgery Start: 02-26-2021 End: 02-26-2021 ambulatory Lynn Garcia Other [facility] [employer] Other Start: 02-26-2021 Telephone encounter Lynn Garcia [facility] Start: 12-13-2020 Office outpatient vi sit 15 minutes Willian BECKFORD [facility] Neurosurgery Start: 03-16-2020 End: 03-16-2020 Patient encounter procedure Jared Petty -Pre-Surgical Testing Start: 03-12-2020 End: 03-12-2020 Patient encounter procedure Jared Petty -Pre-Surgical Testing Start: 02-14-2020 End: 02-14-2020 Patient encounter procedure Jared Petty -[facility] [place] Procedures Date Procedure Procedure Detail Performing Clinician Start: 10-07-2023 Adult depression scr eening assessment Latasha Gutierrez 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 Phone: Start: 07-21-2023 Injection of local anesthetic into sacroiliac joint COMMERCIAL ATTACHEAbel Patino Work Phone: Start: 07-16-2023 X-ray of lumbar spin e, four views COMMERCIAL ATTACHE Roberta Davalossler Work Phone: Start: 06-25-2023 X-ray of cervical spine [employer] Roberta Patino Work Phone: Start: 09-26-2022 Adult depression scr eening assessment Roberta Patino 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 Phone: Start: 02-04-2022 X-ray of cervical spine [employer]ERCIAL [employer]ACHE Roberta Davalossler Work Phone: Start: 10-29-2021 X-ray of cervical spine COMMERCIAL [employer]ACHE Roberta Davalossler Work Phone: Start: 02-14-2020 Radiography of cervi lan spine Jared Petty Plan of Treatment Date Care Activity Detail Author Start: 09-29-2032 DTaP,Tdap and Td Vaccines (2 - Td or Tdap) DTaP,Tdap and Td Vaccines (2 - Td or Tdap) [facility] Start: 10-06-2024 Adult BMI Screening Adult BMI Screening [facility] Start: 10-06-2024 Depression Screening Depression Screening [facility] Start: 10-06-2024 Fall Risk Screening Fall Risk Screening [facility] Start: 10-06-2024 Medicare Annual Wellness Visit Medicare Annual Wellness Visit [facility] Start: 10-06-2024 Tobacco Screening Tobacco Screening [facility] Start: 02-26-2024 Adult BMI Screening Adult BMI Screening [facility] Start: 02-26-2024 Tobacco Screening Tobacco Screening [facility] Start: 02-22-2024 End: 02-22-2024 Patient encounter procedure 02/22/2024 2:40 PM EST [facility] [address] [place] [address] [address] [place] [id number] Roberta Patino, COMMERCIAL ATTACHE-VIRTUAL CUSTOMER ASSISTANT [address], [place] [address] [facility] Start: 11-18-2023 Fall Risk Screening Fall Risk Screening [facility] Start: 11-08-2023 COVID-19 Vaccine ( season) COVID-19 Vaccine () [facility] Start: 11-08-2023 Influenza vaccination Influenza Vaccine [facility] Start: 10-07-2023 End: 10-07-2023 Patient encounter procedure 10/07/2023 10:40 AM EDT Office Visit [facility] [address] [place] [address] [place] [phone] Roberta Patino, COMMERCIAL ATTACHE-VIRTUAL CUSTOMER ASSISTANT [address], [place] [address] [facility] Start: 09-30-2023 Medicare Annual Wellness Visit Medicare Annual Wellness Visit [facility] Start: 09-27-2023 Depression Screening Depression Screening [facility] Start: 08-31-2023 End: 08-31-2023 Patient encounter procedure 08/31/2023 2:40 PM EDT Office Visit [facility] [address] [place] [address] [place] [phone] Roberta Patino, COMMERCIAL ATTACHE-VIRTUAL CUSTOMER ASSISTANT [address], [place] [address] [facility] Start: 07-21-2023 [facility] Start: 07-16-2023 X-ray of lumbar spine, four views XR lumbar spine AP/LAT/FLX/EXT [facility] Start: 06-25-2023 X-ray of cervical spine XR cerv spine AP/LAT/FLX/EXT [facility] Start: 11-24-2022 Administration of varicella zoster vaccine Zoster (Shingles) Vaccine (3 of 3) [facility] Start: 11-07-2022 Influenza vaccination Influenza Vaccine [facility] Start: 01-19-1958 Adult BMI Follow Up Plan Adult BMI Follow Up Plan [facility] Patient Education [facility] Work Phone: Patient referral [facility] Work Phone: Renal function 2000 panel - Serum or Plasma [facility] Immunizations Immunization Date Immunization Notes Care Provider Fa cili 10-07-2023 Pneumococcal Conjuga te 20-valent Latasha Gutierrez 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 Phone: [facility] 12-12-2022 Covid-19,mrna, Lnp-s , Pf, 50mcg/0.5ml 12+ Roberta Patino 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 Phone: [facility] 09-29-2022 tetanus toxoid, redu raji diphtheria toxoid, and acellular pertussis vaccine, adsorbed Roberta Patino 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 Phone: [facility] 09-29-2022 zoster vaccine recombinant Roberta Patino 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 Phone: [facility] 09-29-2022 zoster vaccine, unspecified formulation Roberta Patino 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 Phone: [facility] 12-16-2021 influenza virus vacc ine, unspecified formulation Roberta Patino 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 Phone: [facility] 01-16-2021 COVID-19 mRNA-1273 (Moderna) [employer] Roberta Patino Work Phone: [facility] 12-08-2020 Influenza Vaccine, Quadrivalent, Adjuvanted Roberta Patino 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 Phone: [facility] 05-07-2020 COVID-19, mRNA, LNP- S, PF, 100mcg/0.5mL Dose Roberta Patino 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 Phone: [facility] 05-04-2020 COVID-19 mRNA-1273 (Moderna) COMMERCIAL [employer]ACHE Roberta Davalossler Work Phone: [facility] 04-07-2020 COVID-19, mRNA, LNP- S, PF, 100mcg/0.5mL Dose Roberta Patino 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 Phone: [facility] 04-06-2020 COVID-19 mRNA-1273 (Moderna) COMMERCIAL ATTACHE Roberta Patino Work Phone: [facility] 02-18-2020 influenza, injectabl e, quadrivalent, preservative free Roberta Patino 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 Phone: [facility] 01-25-2019 Influenza, injectabl e, Madin Teri Canine Kidney, quadrivalent with preservative Roberta Patino 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 Phone: [facility] 01-25-2019 pneumococcal polysaccharide vaccine, 23 valent Roberta Patino 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 Phone: [facility] 01-13-2018 pneumococcal conjuga te vaccine, 13 valent Roberta Davalossler 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 Phone: [facility] 01-08-2018 influenza, injectabl e, quadrivalent, contains preservative Roberta Patino 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 Phone: [facility] 03-09-2014 zoster vaccine, live Roberta Patino 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 Phone: [facility] Payers Date Payer Category Payer [employer] Indemnity [place] [id number] 2016 Unknown FRANCISCO MENDEZ [id number] 2016-Present [phone] [id number] [place], [place] [id number] 2016 Unknown [id number] 2005 Medicare [id number] 2005 Medicare [id number] 1940 Unknown [id number] 1940 Unknown [id number] 1940 Unknown [id number] 1940 Unknown [id number] 1940 Unknown [id number] Medicare [id number] Self-pay Self Pay [id number] Social History Date Type Detail Facility Start: 03-12-2020 End: 08-31-2023 Tobacco smoking status [facility] Ex-smoker (finding) [facility] Start: 1940 Sex Assigned At Male [facility] Start: 10-23-2020 End: 02-25-2023 Sex Assigned At [facility] Start: 07-01-2021 End: 07-02-2021 Tobacco smoking status [facility] Never smoked tobacco (finding) [facility] End: 03-09-1999 History of tobacco use Current smoker [facility] End: 03-09-1999 History of tobacco use Cigarette Smoker [facility] Start: 07-09-2022 End: 08-31-2023 Tobacco use and exposure Smokeless tobacco non-user [facility] Start: 02-25-2023 End: 10-07-2023 Alcohol intake Current non-drinker of alcohol (finding) [facility] Start: 10-23-2020 End: 02-25-2023 History of Social function [facility] Do you belong to any clubs or organizations such as shinto groups, unions, fraternal or athletic groups, or school groups? No [facility] Are you now , , , , never or living with a partner? [facility] How often to you hav e a drink containing alcohol? Monthly or less [facility] How many standard dr inks containing alcohol do you have on a typical day? Patient declined [facility] How often do you hav e 6 or more drinks on 1 occasion? Never [facility] Do you feel stress - tense, restless, nervous, or anxious, or unable to sleep at night because your mind is troubled all the time - these days [OSQ] Not at all [facility] Start: 10-23-2020 Education 16 [facility] Start: 1940 Sex Assigned At Not on file [facility] Start: 10-12-2014 Sex Male (finding) [facility] Medical Equipment Procedure Code Equipment Code Equipment Origin al Text Equipment Identifier Dates Decompression, spine, cervical, posterior approach OSTEOAMP GRANULES 10CC FDA Start: 03-19-2020 Decompression, spine, cervical, posterior approach Bone-screw internal spinal fixation system, non-sterile ()[id number] FDA Start: 03-19-2020 Decompression, spine, cervical, posterior approach Bone-screw internal spinal fixation system, non-sterile ()[id number] FDA Start: 03-19-2020 Decompression, spine, cervical, posterior approach Bone-screw internal spinal fixation system, non-sterile ()[id number] FDA Start: 03-19-2020 Decompression, spine, cervical, posterior approach Bone-screw internal spinal fixation system, non-sterile ()[id number] FDA Start: 03-19-2020 Decompression, spine, cervical, posterior approach Bone-screw internal spinal fixation system, non-sterile ()[id number] FDA Start: 03-19-2020 Decompression, spine, cervical, posterior approach Bone-screw internal spinal fixation system, non-sterile ()[id number] FDA Start: 03-19-2020 Decompression, spine, cervical, posterior approach Bone-screw internal spinal fixation system, non-sterile ()[id number] FDA Start: 03-19-2020 Decompression, spine, cervical, posterior approach CANCELLOUS 15CC CRUSHED FDA Start: 07-01-2021 Decompression, spine, cervical, posterior approach Spinal fusion graft kit ()[id number] FDA Start: 07-01-2021 Decompression, spine, cervical, posterior approach Bone-screw internal spinal fixation system, non-sterile ()[id number] FDA Start: 07-01-2021 Decompression, spine, cervical, posterior approach Bone-screw internal spinal fixation system, non-sterile ()[id number] FDA Start: 07-01-2021 Decompression, spine, cervical, posterior approach Bone-screw internal spinal fixation system, non-sterile ()[id number] FDA Start: 07-01-2021 Decompression, spine, cervical, posterior approach Bone-screw internal spinal fixation system, non-sterile ()[id number] FDA Start: 07-01-2021 Decompression, spine, cervical, posterior [...] low back pain Sacroiliitis, not elsewhere classified [facility] Work Phone: 1(395) 705-354108-15-2024 Evaluation note* Diagnosis Onset Date Resolution Status [...] pain acute Sacroiliitis, not elsewhere classified acute [facility] Work Phone: 1(295) 427-948503-07-2024 Miscellaneous Notes* Telephone Encounter - Rajani Thorne CNA - 05/14/2023 2:28 PM EST Barney notified of enrollment to the care management. [facility] Telephone encounter Note* Telephone Encounter - Rajani Thorne CNA - 05/14/2023 2:28 PM EST Barney notified of enrollment to the care management. [employer]12-13-2023 Evaluation note* Encounter Date Diagnosis Assessment Notes [...] He does not take nonsteroidal anti-inflammatory drugs. [employer] Other 06-20-2023 Evaluation note* Encounter Date Diagnosis [...] He does not take nonsteroidal anti-inflammatory drugs. [employer] Other 04-04-2023 Evaluation note* Encounter Date Diagnosis [...] Cervical radiculopathy at C8 (ICD-10 - M54.12) [employer] Other 12-13-2022 Evaluation note* Encounter Date Diagnosis [...] He does not take nonsteroidal anti-inflammatory drugs. [employer] Other 08-23-2022 Evaluation note* Encounter Date Diagnosis [...] Cervical radiculopathy at C8 (ICD-10 - M54.12) [employer] Other 06-15-2022 Evaluation note* Encounter Date Diagnosis [...] He does not take nonsteroidal anti-inflammatory drugs. [employer] Other 05-24-2022 Evaluation note* Encounter Date Diagnosis [...] fusion of cervical spine (ICD-10 - Z98.1) [employer] Other 02-17-2022 Evaluation note* Encounter Date Diagnosis [...] meantime Apr, Cervical myelopathy (ICD-10 - G95.9) [employer] Other 01-06-2022 Evaluation note* Encounter Date Diagnosis [...] of right upper extremity (ICD-10 - G56.21) [employer] Other 10-07-2021 Evaluation note* Encounter Date Diagnosis [...] declined Dec, Cervical myelopathy (ICD-10 - G95.9) [facility] [employer] Other chifk complaint+Reason for visit Narrative* Chief Complaint m47.12 FOLLOW UP PCD W/X-RAY CONSULT DR. 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 Spondylolisthesis, cervical region Chronic pain Other low back pain Sacroiliitis, not elsewhere classified Chronic pain Other low back pain Sacroiliitis, not elsewhere classified [facility] Work Phone: Chief complaint+Reason for visit [...] Hypercalcemia Hyperparathyroid bone disease Vitamin B12 deficiency [facility] Work Phone: Chikf complaint+Reason for visit Narrative* Chief Complaint m47.12 [...] Hypercalcemia Hyperparathyroid bone disease Vitamin B12 deficiency [facility] Work Phone: Chimc complaint+Reason for visit Narrative* Chief Complaint CONSULT [...] low back pain Sacroiliitis, not elsewhere classified [facility] Work Phone: Chief complaint+Reason for visit [...] low back pain Sacroiliitis, not elsewhere classified [facility] Work Phone: Evaluation noteNo [employer] Other Evaluation noteNo assessment information available [facility] Work Phone: Evaluation note* Diagnosis Dermatitis Contact dermatitis and other eczema, due to unspecified cause documented in this encounter [facility] Diagnosis Essential hypertension, benign documented in this encounter [facility]* Diagnosis Onset Date Resolution Status 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 acute Spondylolisthesis, cervical region acute [facility] Work Phone: Evaluation note* Diagnosis Onset Date Resolution Status 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 acute Spondylolisthesis, cervical region acute Chronic pain acute Other low back pain acute Sacroiliitis, not elsewhere classified acute [facility] Work Phone: Evaluation note* Diagnosis Onset Date Resolution Status 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 acute Spondylolisthesis, cervical region acute Chronic pain acute Other low back pain acute Sacroiliitis, not elsewhere classified acute Chronic pain acute Other low back pain acute Sacroiliitis, not elsewhere classified acute [facility] Work Phone: Evaluation note* Diagnosis Onset [...] bone disease acute Vitamin B12 deficiency acute [facility] Work Phone: Evaluation note* Diagnosis Onset [...] pain acute Sacroiliitis, not elsewhere classified acute [facility] Work Phone: Evaluation note* Diagnosis Onset [...] pain acute Sacroiliitis, not elsewhere classified acute [facility] Work Phone: Evaluation note* Diagnosis Enlarged prostate with urinary obstruction Hypertrophy of prostate with urinary obstruction and other lower urinary tract symptoms (LUTS) [facility] - [facility]* Type Description Date Medical History hypertension Medical History cervical myelopathy Medical History spinal stenosis Medical History pneumonia Medical History Acute Kidney Injury Medical History chronic kidney disease Surgical History back surgery Surgical History shoulder surgery Surgical History hemorrhoidectomy Surgical History hernia repair Surgical History Cervical fusion-Doctor Juvenal Hospitalization History See [facility] Other History general Narrative - Reported* Type Description Date Medical History hypertension Medical History cervical myelopathy Medical History spinal stenosis Medical History pneumonia Medical History Acute Kidney Injury Medical History chronic kidney disease Surgical History back surgery Surgical History shoulder surgery Surgical History hemorrhoidectomy Surgical History hernia repair Surgical History Cervical fusion-Doctor Juvenal 06/11/2021 Hospitalization History See [facility] Other InstructionsNot on filedocumented in this encounter [facility] Advance Directives Advance Directive Response Recorded [...] accident (CVA) Unknown brother History of agent [place] exposure Unknown Relationship Condition Age at Onset Recorded Date/T fawad Not Specified Hypertension Unknown father Heart disease Unknown Hypertension Unknown daughter Cerebrovascular accident (CVA) Unknown brother History of agent [place] exposure Unknown brother Family history of mental disorder Unknown Malignant neoplasm Unknown daughter Hypertension Unknown History of stroke Unknown father Unknown family member Family history of other condition Unknow n Not Specified Unknown sister Malignant neoplasm Unknown Relationship Condition Age at Onset Recorded Date/T fawad mother Hypertension Unknown father Heart disease Unknown Hypertension Unknown daughter Cerebrovascular accident (CVA) Unknown brother History of agent [place] exposure Unknown brother Family history of mental disorder Unknown Malignant neoplasm Unknown daughter Hypertension Unknown History of stroke Unknown father Unknown family member Family history of other condition Unknow n mother Unknown sister Malignant neoplasm Unknown Summary Purpose Reason for Referral Reason Evaluate BUE EM G Diagnosis 1 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) Referral Organization [facility] urosurgery Referring Provider First Name Willian [...] DATE CREATED AUTHOR AUTHOR'S ORGANIZ ATION 11/09/2020 [facility] DATE CREATED AUTHOR AUTHOR'S ORGANIZ ATION 07/24/2023 [facility] DATE CREATED AUTHOR AUTHOR'S ORGANIZ ATION 08/18/2023 [facility] DATE CREATED AUTHOR AUTHOR'S ORGANIZ ATION 10/28/2023 [facility] REASON FOR VISIT (unrecogniz ed section and content) Reason Comments Med Refill Reason Onset Date Comments Care Management 05/14/2023 Reason Onset Date Comments Med Refill 05/29/2023 Care Teams (unrecognized sec tion and content) Team Status: Active Member Role Status Dates Roberta Patino APRN G[employer] TORCH SOLDERER-C Primary Care Provider Active Team Status: Active Member Role Status Dates Roberta Patino APRN G[employer] T[employer]CH SOLDERER-C Primary Care Provider Active Start: June 25, 2023 Willian Nuñez MD Attending Provider Active Star t: June 25, 2023 Team Status: Inactive Member Role Status Dates Roberta Patino APRN GAS TORCH SOLDERERAndree Primary Care Provider Active Start: June 25, 2023 End: June 25, 2023 Willian Nuñez MD Attending Provider Active Star t: June 25, 2023 End: June 25, 2023 Team Status: Inactive Member Role Status Dates Roberta Patino APRN G[employer] TORCH SOLDERER-C Primary Care Provider Active Willian Nuñez MD Attending Provider Active Team Status: Inactive Member Role Status Dates Roberta Patino APRN G[employer] T[employer]CH SOLDERER-C Primary Care Provider Active Lynn Garcia MD Attending Provider Active Foundry Engineer Relationship Specialty Start Date End Date CherryRoberta MadanYUANN-VIRTUAL CUSTOMER ASSISTANT [address], [place] [address] PCP - General Family Medicine 09/13/20 Foundry Engineer Relationship Specialty Start Date End Date CherryRoberta ramey APRN-VIRTUAL CUSTOMER ASSISTANT [address], [place] [address] PCP - General Family Medicine 09/13/20 Foundry Engineer Relationship Specialty Start Date End Date CherryRoberta ramey APRN-VIRTUAL CUSTOMER ASSISTANT [address], [place] [facility] [place] [address] PCP - General Family Medicine 09/13/20 Team Status: Inactive Member Role Status Dates Roberta Patino APRN G[employer] TORCH SOLDERER-C Primary Care Provider Active Start: July 16, 2023 End: July 16, 2023 Angel Carbajal MD Attending Provider Active Sta rt: July 16, 2023 End: July 16, 2023 Team Status: Active Member Role Status Dates Roberta Patino APRN G[employer] TORCH SOLDERER-C Primary Care Provider Active Start: July 16, 2023 Angel Carbajal MD Attending Provider Active Sta rt: July 16, 2023 Team Status: Inactive Member Role Status Dates Roberta Patino APRN G[employer] TORCH SOLDERER-C Primary Care Provider Active Start: July 21, 2023 End: July 21, 2023 Angel Carbajal MD Attending Provider Active Sta rt: July 21, 2023 End: July 21, 2023 Team Status: Active Member Role Status Dates Roberta Patino APRN G[employer] TORCH SOLDERER-C Primary Care Provider Active Start: July 20, 024 Angel Carbajal MD Attending Provider, Other Provider Active Start: July 21, 2023 Team Status: Inactive Member Role Status Dates Roberta Patino APRN G[employer] TORCH SOLDERER-C Primary Care Provider Active Start: August 18, 2023 End: August 18, 2023 Angel Carbajal MD Attending Provider Active Sta rt: August 18, 2023 End: August 18, 2023 Team Status: Inactive Member Role Status Dates Roberta Patino APRN GAS TORCH SOLDERER-C Primary Care Provider Active Start: August 19, 2023 End: August 19, 2023 Cristofer Odonnell MD Attending Provider Active Star t: August 19, 2023 End: August 19, 2023 Team Status: Active Member Role Status Dates Roberta Patino APRN GAS TORCH SOLDERER-C Primary Care Provider Active Start: August 26, 2023 Angel Carbajal MD Attending Provider Active Sta rt: August 26, 2023 Team Status: Inactive Member Role Status Dates Roberta Patino APRN GAS TORCH SOLDERER-C Primary Care Provider Active Start: September 18, 2023 End: September 18, 2023 Angel Carbajal MD Attending Provider Active Sta rt: September 18, 2023 End: September 18, 2023 Team Status: Inactive Member Role Status Dates Roberta Patino APRN G[employer] TORCH SOLDERER-C Primary Care Provider Active Start: September 24, 2023 End: September 24, 2023 Angel Carbajal MD Attending Provider Active Sta rt: September 24, 2023 End: September 24, 2023 Team Status: Inactive Member Role Status Dates Roberta Patino APRN GAS TORCH SOLDERER-C Primary Care Provider Active Start: October 14, 2023 End: October 14, 2023 Angel Carbajal MD Attending Provider Active Sta rt: October 14, 2023 End: October 14, 2023 Team Status: Active Member Role Status Dates Roberta Patino APRN GAS TORCH SOLDERER-C Primary Care Provider Active Start: October 14, 2023 Angel Carbajal MD Attending Provider Active Sta rt: October 14, 2023 Team Status: Inactive Member Role Status Dates Roberta Patino APRN GAS TORCH SOLDERER-C Primary Care Provider Active Start: October 22, 2023 End: October 22, 2023 Angel Carbajal MD Attending Provider Active Sta rt: October 22, 2023 End: October 22, 2023 Foundry Engineer Relationship Specialty Start Date End Date Roberta Patino, LINDA-VIRTUAL CUSTOMER ASSISTANT [address], [place] [address] PCP - General Family Medicine 09/13/20 Sugar Balderas [facility] Nurse - [employer] 07/08/23 Goals (unrecognized section [...] BE BASED ON THE PRIMARY CLINICAL RECORDS. [employer] provides no warranty or guarantee of the accuracy or completeness of information in this document.
--- NOTE | 2024-02-01 13:10 | PM.CN ---
Consult Note: HPI Data of Consult Patient: known to practice within the last 3 years Consult date: 02/01/24 Requesting Physician: Mabel De La Garza MD Primary Care Provider: Roberta Patino NP Consult Narrative Reason for consult: back pain Narrative: 84yom who presents for lead pull. Underwent successful trial, endorses greater than 50% relief. cc:: CC: Mabel De La Garza MD [facility] Medical History (Updated 01/20/24 @ 14:20 by Carmela Bender NP) Lumbar stenosis with neurogenic claudication ?M48.062 - Spinal stenosis, lumbar region with neurogenic claudication (ICD-10) Irregular heartbeat ?I49.9 - Cardiac arrhythmia, unspecified (ICD-10) Hypercalcemia ?E83.52 - Hypercalcemia (ICD-10) Bone disorder ?M89.9 - Disorder of bone, unspecified (ICD-10) Kidney disease ?N28.9 - Disorder of kidney and ureter, unspecified (ICD-10) Skin cancer ?C44.90 - Unspecified malignant neoplasm of skin, unspecified (ICD-10) Arthritis ?M19.90 - Unspecified osteoarthritis, unspecified site (ICD-10) Back pain ?M54.9 - Dorsalgia, unspecified (ICD-10) BPH (benign prostatic hyperplasia) ?N40.0 - Benign prostatic hyperplasia without lower urinary tract symptoms (ICD-10) Cataract ?H26.9 - Unspecified cataract (ICD-10) GERD (gastroesophageal reflux disease) ?K21.9 - Gastro-esophageal reflux disease without esophagitis (ICD-10) Extremity edema ?R60.0 - Localized edema (ICD-10) Autologous donor, 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, stem cells (ICD-10) Low back pain ?M54.50 - Low back pain, unspecified (ICD-10) Hypertension ?I10 - Essential (primary) hypertension (ICD-10) Kidney dysfunction ?N28.9 - Disorder of kidney and ureter, unspecified (ICD-10) Surgical History (Updated 01/20/24 @ 13:13 by Carmela Bender NP) S/P cataract extraction and insertion of intraocular lens ?Z98.49 - Cataract extraction status, unspecified eye (ICD-10) ?Z96.1 - Presence of intraocular lens (ICD-10) History of colonoscopy ?Z98.890 - Other specified postprocedural states (ICD-10) H/O repair of rotator cuff ?Z98.890 - Other specified postprocedural states (ICD-10) H/O cervical spine surgery ?Z98.890 - Other specified postprocedural states (ICD-10) H/O shoulder replacement ?Z96.619 - Presence of unspecified artificial shoulder joint (ICD-10) H/O hernia repair ?Z98.890 - Other specified postprocedural states (ICD-10) ?Z87.19 - Personal history of other diseases of the digestive system (ICD-10) Hx of laminectomy ?Z98.890 - Other specified postprocedural states (ICD-10) Family History (Updated 01/20/24 @ 13:13 by Carmela Bender NP) Other Cancer Family history of breast cancer Family history of heart disease Family history of hypertension Family history of stroke Kyphosis Social History (Updated 01/20/24 @ 13:01 by Carmela Bender NP) Within the past year, how often did you have a drink containing alcohol: monthly or less Smoking status: Former smoker Non-prescribed substance use: denies use 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, [employer]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 Highest level of school completed/degree received: high school graduate Meds Home Medications and Allergies Home Medications ?Medication ?Instructions ?Recorded ?Confirmed ?Type amlodipine 5 mg tablet 5 mg PO DAILY 11/17/23 01/25/24 History ascorbic acid (vitamin C) 500 mg 500 mg PO DAILY 11/17/23 01/25/24 History capsule cyanocobalamin (vitamin B-12) 1,000 mcg PO DAILY 11/17/23 01/25/24 History 1,000 mcg capsule cyclobenzaprine 5 mg tablet 5 mg PO DAILY 11/17/23 01/25/24 History diclofenac sodium 1 % topical gel 2 g topical QID 11/17/23 01/25/24 History famotidine 20 mg tablet 20 mg PO BID 11/17/23 01/25/24 History finasteride 5 mg tablet 5 mg PO DAILY 11/17/23 01/25/24 History fluticasone propionate 50 1 inh inhalation QAM 11/17/23 01/25/24 History mcg/actuation blister powder for inhalation losartan 50 mg tablet 75 mg PO DAILY 11/17/23 01/25/24 History nystatin 100,000 unit/gram topical 1 applic topical DAILY 11/17/23 01/25/24 History cream peg 400-propylene glycol 0.4 %-0.3 1 drp ophthalmic (eye) DAILY PRN 11/17/23 01/25/24 History % eye drops (Systane Ultra) dry eye(s) tamsulosin 0.4 mg capsule 0.4 mg PO DAILY 11/17/23 01/25/24 History triamcinolone acetonide 0.1 % 1 applic topical DAILY 11/17/23 01/25/24 History topical cream triamterene 37.5 1 cap PO DAILY 11/17/23 01/25/24 History mg-hydrochlorothiazide 25 mg capsule Allergies Allergy/AdvReac Type Severity Reaction Status Date / Time aspirin AdvReac Unknown Nausea Verified 01/25/24 12:02 naproxen AdvReac Unknown Nausea Verified 01/25/24 12:02 Assessment and Plan Assessment and Plan (1) Lumbar stenosis with neurogenic claudication: Plan 84yom who presents for lead pull. His SCS leads were removed, and his site was found to be clean, dry, and intact. No signs of infection noted. He noted >50% relief with his trial and is interested in moving forward with the permanent implant. I will refer him to Dr. Renee for permanent implantation. He is in agreement. Follow up as needed.
== END 2024-02-01 11:23 | disposition home or self-care (01) ==
LOC: PM 11:23
PROVIDERS: PCP Nurse Practitioner; Visit Provider Anesthesiology
DX: M48.062 Spinal stenosis, lumbar region with neurogenic claudication (principal)
CPT/HCPCS: G0463

== ENCOUNTER 2024-05-13 10:30 | Outpatient (OUT) | payer MEDICARE, BC, SELFPAY ==
--- NOTE | 2024-05-13 | XR_ITS ---
[address] [address] Patient Name: MARCIANO MCMILLAN MRN: [id number] date: 1940 Sex: M Assigned Patient Location: Current Patient Location: Accession/Order Number: [id number] Exam Date: 05/13/2024 21:46 Report Date: 05/13/2024 21:51 At the request of: SATISH RUGGIERO MD Procedure: XR lumbar spine 2-3V 2 views Lumbar Spinewith weightbearing HISTORY: Low back pain. History of lumbar fusion COMPARISON: 12/01/2023 POSTSURGICAL CHANGES: L2-S1 posterior fusion with decompression. L5-S1 interbody fusion hardware. BONY ALIGNMENT: Similar moderate scoliosis. Similar straightening of lumbar spine. HYPERMOBILITY:No bending imaging. LISTHESIS:Similar mild degenerative listhesis FRACTURE: None DEGENERATIVE CHANGES: Similar multilevel extensive spondylosis and facet degeneration. SOFT TISSUES: Atherosclerosis of the aorta. BONY MINERALIZATION:Adequate XR/XR lumbar spine 2-3V IMPRESSION: No hardware complication. Stable bony alignment and degenerative change. Impression dictated by: Rahul Beavers M.D.05/13/2024 9:51 PM Dictation Location: [place] [address] Electronically authenticated by: [id number] Y Date: 05/13/2024 21:51
--- OUTSIDE RECORDS SUMMARY | 2024-05-13 10:50 | XMS_ITS | CCD ---
Author Organization [facility] Care Team Providers Care Electrical/Instrument Technician Name Role Phone Jared Petty Primary Care Provider Willian Nuñez Attending Provider [phone] Willina Nuñez Unavailable Lynn Garcia Unavailable Cristofer Grey Unavailable LINDA Patino Primary Care Provider MD Lynn Garcia Attending Provider [phone] MD Willian Nuñez Attending Provider LINDA Patino Primary Care Provider MD Willian Nuñez Attending Provider [phone] LINDA Patino Primary Care Provider MD Willian Nuñez Attending Provider [phone] MD Angel Carbajal Attending Provider Angel Carbajal Admitting Unavailable Angel Carbajal Attending Unavailable Roberta Patino Primary Care Unavailable Angel Carbajal Admitting Unavailable Angel Carbajal Attending Unavailable Roberta Patino Primary Care Unavailable Wlilian Nuñez Admitting Unavailable Willian Nuñez Attending Unavailable Roberta Patino Primary Care Unavailable LINDA Patino Primary Care Provider LINDA Patino Primary Care Provider MD Angel Carbajal Attending Provider Sukumar PRINTER 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, Roberta A Primary Care Provi chong Hakan NDJacquelinericci Primary Care Provider HERB CH Consulting Unavailable [facility] Primary Care Unavailable MONA, SELVON F Attending Unavailable MONA, SELVON F Admitting Unavailable Unavailable Primary Care Provider Unavailabl e SUKUMAR, ROBERTA A Attending Unavailable SUKUMAR, ROBERTA A Referring Unavailable SUKUMAR, ROBERTA A Primary Care Unavailable SUKUMAR, ROBERTA A Attending Unavailable SUKUMAR, ROBERTA A Referring Unavailable SUKUMAR, ROBERTA A Primary Care Unavailable HAKAN, MAGO M Attending Unavailable SUKUMAR, ROBERTA A Referring Unavailable SUKUMAR, ROBERTA A Primary Care Unavailable SUKUMAR, ROBERTA A Attending Unavailable SUKUMAR, ROBERTA A Referring Unavailable SUKUMAR, ROBERTA A Primary Care Unavailable HAKAN, MAGO M Attending Unavailable SUKUMAR, ROBERTA A Referring Unavailable SUKUMAR, ROBERTA A Primary Care Unavailable GUTIERREZ, JOEL Attending Unavailable SUKUMAR, ROBERTA A Referring Unavailable SUKUMAR, ROBERTA A Primary Care Unavailable CRISTOFER GREY Referring Unavailable SUKUMAR, ROBERTA A Primary Care Unavailable KARLO STANTON Referring Unavailable SUKUMAR, ROBERTA A Primary Care Unavailable SUKUMAR, ROBERTA A Referring Unavailable SUKUMAR, ROBERTA A Primary Care Unavailable SUKUMAR, ROBERTA A Referring Unavailable SUKUMAR, ROBERTA A Primary Care Unavailable SUKUMAR, ROBERTA A Referring Unavailable SUKUMAR, ROBERTA A Primary Care Unavailable GUTIERREZ, JOEL Referring Unavailable SUKUMAR, ROBERTA A Primary Care Unavailable GUTIERREZ, JOEL Referring Unavailable SUKUMAR, ROBERTA A Primary Care Unavailable Unavailable Unavailable Unavailable Allergies Allergy Classification Reported Allergen(s) Allergy Type Date of Onset Reaction(s) Facility (20 sources) Aspirin; Translations: [aspirin] Drug Allergy 9 GI Disturbance, Other (See Comments), GI intolerance [facility] (14 sources) NSAIDS (Non-Steroidal Anti-Inflamma Propensity to adverse reactions 1 GI bleed [facility] (20 sources) Anti-Inflammato ry Enzyme Drug allergy 4 Unknown, Unknown Reaction [facility] (20 sources) Naproxen; Translations: [NAPROXEN] Drug Allergy 9 Other (See Comments), Unknown [facility] Medications Current Medications Medication Drug Class(es) Dates Sig (Normalized) Sig (Original) ACETAMINOPHEN 8 HOUR PO (1 source) take 650 mg by mouth every eight hours as needed ACETAMINOPHEN 8 HOUR PO Take 650 mg by mouth every 8 hours as needed Active amLODIPine 5 mg oral tablet (20 sources) Dihydropyridine Calcium Channel Madeline Start: 11-30-2022 End: 10-19-2023 take 1 tablet by mouth once daily amLODIPine (NORVASC) 5 mg tablet Indications: Essential hypertension, benign take 1 tablet by mouth once daily MAY TAKE ADDITIONAL TABLET IF BP GREATER THAN 150 90 tablet 1 10/19/2023 Active Start: 06-17-2021 End: 08-19-2023 take 5 mg by mouth once daily Amlodipine Discontinued 5 MG PO Daily June 17, 2021 12:48pm August 19, 2023 2:10pm Start: 04-03-2020 End: 06-17-2021 take 10 mg by mouth once daily Amlodipine Discontinued 10 MG PO Daily April 03, 2020 1:00am [...] Discontinued 2000 MG PO Twice daily March 21, 2020 1:00am March 21, 2020 5:29pm Start: 03-12-2020 End: 04-03-2020 take 2 tablets by mouth twice daily Ascorbic Acid (Vitamin C) (Vitamin C) 1,000 mg Tablet Discontinued 2000 MG PO Twice daily March 12, 2020 1:00am April 03, 2020 9:58am take 1 tablet by allyson th in the morning ascorbic acid (Vitamin C) 500 MG tablet Take 500 mg by mouth in the morning. Active ascorbic acid 113 mg / copper gluconate 0.4 mg / docosahexaenoic acid 87.5 mg / eicosapentaenoic acid 163 mg / lutein 2.5 mg / tocopherol acetate 100 unt / zeaxanthin 0.5 mg / zinc oxide 17.4 mg oral capsule (1 source) Vitamin C take 1 tablet by mouth once daily Multiple Vitamins-Minerals (PRESERVISION AREDS 2) CAPS Take 1 tablet by mouth daily Active cyclobenzaprine hydrochloride 5 mg oral tablet (20 sources) Muscle Relaxant Start: 03-29-19 take 10 mg by mouth three times daily as needed 10 mg, Oral, 3 TIMES DAILY PRN, Starting on Thu03/29/24 at 1832, Until Discontinued, Muscle spasms, Post-op Start: 08-17-2023 End: 10-19-2023 take 1 tablet by mouth once daily as needed for muscle spasms cyclobenzaprine (FLEXERIL) 5 mg tablet Indications: Cervical neuropathic pain Take 1 tablet (5 mg total) by mouth daily as needed for muscle spasms. 30 tablet 3 10/19/2023 Active Start: 07-03-2021 End: 04-03-2024 take 1 tablet by mouth three times daily for muscle spasms cyclobenzaprine (FLEXERIL) 5 mg tablet Indications: Cervical neuropathic pain take 1 tablet by mouth three times a day if needed for muscle spasm 30 tablet 3 11/29/2022 Active Start: 03-21-2020 End: 04-03-2020 take 10 mg [...] BEDTIME). 180 tablet 1 10/05/2023 Active Start: 12-13-2022 End: 03-30-2024 take 20 mg by mouth twice daily 20 mg, Oral, 2 TIMES D AILY, First dose on Thu03/29/24 at 2100, Until Discontinued Start: 03-12-2020 End: 03-21-2020 take 20 mg by mouth once daily at bedtime Famotidine Discontinued 20 MG PO Daily at bedtime March 12, 2020 1:00am March 21, 2020 2:16pm Start: 03-12-2020 End: 06-17-2021 take 20 mg by mouth twice daily Famotidine Discontinue d 20 MG PO Twice daily 60 April 03, 2020 1:00am June 17, 2021 12:49pm finasteride 5 mg oral tablet (20 sources) 5-alpha Reductase Inhibitor Start: 09-27-2022 End: 03-12-2024 take 1 tablet by mouth in the morning finasteride (PROSCAR) 5 mg tablet TAKE 1 TABLET(5 MG) BY MOUTH IN THE MORNING 90 tablet 1 03/12/2024 Active Start: 03-21-2020 End: 04-03-2020 take 5 mg by mouth once daily in the morning Finasteride Discontinued 5 MG PO Every morning March 21, 2020 5:29pm April 03, 2020 9:58am fluticasone propionate 0.05 mg/actuat metered dose nasal spray (20 sources) Corticosteroid Start: 03-29-2024 Start: 08-19-2023 Fluticasone Pr opionate Active INTRANASAL August 19, 2023 12:00am Start: 08-12-2023 take 1 spray(s) nasa l route in the morning fluticasone propionate (FLONASE) 50 mcg/actuation nasal spray Administer 1 spray into each nostril in the morning. 16 g 3 08/12/2023 Active Start: 04-06-2023 End: 08-12-2023 take 1 spray(s) nasal route once daily in the morning fluticasone propionate (FLONASE) 50 mcg/actuation nasal spray instill 1 spray into each nostril every morning 16 g 3 04/06/2023 08/12/2023 Discontinued (Reorder) Start: 03-31-2022 End: 04-06-2023 take 1 spray(s) nasal route in the morning fluticasone propionate (FLONASE) 50 mcg/actuation nasal spray Administer 1 spray into each nostril in the morning. 18.2 mL 4 03/31/2022 04/06/2023 Discontinued take 1 spray(s) nasa l route in the morning fluticasone (Flonase) 50 MCG/ACT nasal spray Administer 1 spray into each nostril in the morning. Shake gently. Before first use, prime pump. After use, clean tip and replace cap.. Active take 1 spray(s) nasa l route once daily fluticasone (FLONASE) 50 MCG/ACT nasal spray 1 spray by Each Nostril route daily Active take 1 spray(s) nasa l route once daily Fluticasone Propionate 50 MCG/ACT 1 spray in each nostril Nasally Once a day Active magnesium hydroxide 80 mg/ml oral suspension (13 sources) Start: 03-29-2024 Start: 03-21-2020 End: 04-03-2020 take 1 mL [...] 21, 2020 1:00am April 03, 2020 9:58am miconazole nitrate 20 mg/ml topical cream (1 source) Azole Antifungal Start: 03-29-2024 apply 1 dose topically twice daily Topical, 2 TIMES DAILY, First dose on Thu03/29/24 at 2100, Apply to dry skin. Substituted for nystatin cream. nirmatrelvir-barby navir (PAXLOVID) tablets (1 source) Start: 11-25-2023 End: 11-30-2023 take 2 tablets by mouth in the morning nirmatrelvir-riton avir (PAXLOVID) tablets Indications: SARS-CoV-2 positive Take 2 tablets by mouth in the morning and 2 tablets before bedtime. Do all this for 5 days. 20 tablet 11/25/2023 11/30/2023 Active nystatin 088932 unt/ml topical cream (20 sources) Polyene Antifungal Start: 10-31-2022 End: 11-10-2023 nystatin (MYCOSTATIN) cream Indications: Dermatitis apply 1 APPLICATION topically to affected area if needed for DERMATITIS 30 g 2 11/10/2023 Active Start: 06-17-2021 Nystatin Activ e 1 APPLIC TOPICAL As Directed June 17, 2021 12:00am nystatin (Mycost atin) cream Apply topically 2 (two) times a day. Active Nystatin 763223 UNIT/GM 1 application Externally Twice a day Active Nystatin 214218 UNIT/GM 1 application Externally Twice a day Active ondansetron (ZOFRAN-ODT) disintegrating tablet 4 mg (1 source) Start: 03-29-2024 ondansetron (ZOFRAN-ODT) disintegrating tablet 4 mg oxyCODONE hydrochloride 5 mg oral tablet (20 sources) Opioid Agonist Start: 04-22-2024 End: 05-04-2024 take 1 tablet by mouth every six hours as needed for pain and pain and pain oxyCODONE (Roxicodone) 5 MG immediate release tablet Indications: Pain Take 1 tablet (5 mg) by mouth every 6 (six) hours if needed for severe pain for up to 12 days 48 tablet 04/22/2024 05/04/2024 Active Start: 04-03-2024 End: 04-10-2024 take 1 capsule by mouth every six hours as needed for pain oxyCODONE 5 MG capsule Indications: Lumbar stenosis with neurogenic claudication Take 1 capsule by mouth every 6 hours as needed for Pain for up to 7 days. Max Daily Amount: 20 mg 28 capsule 04/03/2024 04/10/2024 Active Start: 03-29-2024 oxyCODONE (HAYLIE ICODONE) immediate release tablet 5 mg Start: 02-10-2024 take 1 tablet by allyson th three times daily as needed for pain oxyCODONE (ROXICODONE) 5 mg immediate release tablet Take 1 tablet (5 mg total) by mouth 3 (three) times a day as needed for pain. 02/10/2024 Active Start: 08-07-2021 take 1-2 tablets by mouth [...] 2.5 MG PO Three times daily 20 April 03, 2020 June 17, 2021 12:48pm [...] Two times a Week Active polyethylene glycol 3350 52580 mg powder for oral solution (1 source) Osmotic Laxative Start: 03-29-2024 17 g, Oral, DAILY, First dose on Thu03/29/24 at 2100, Until Discontinued, Stir and dissolve one packet of powder (17 g) in any 4 to 8 ounces of beverage (cold, hot or room temperature) then drink, Post-op polyethylene glycol 400 4 mg/ml / propylene glycol 3 mg/ml ophthalmic solution (20 sources) Start: 03-12-2020 Peg 400-Propylene Glycol (Systane (Propylene Glycol)) 0.4-0.3 % Drops Active 2 DROPS EYE-BOTH As Directed March 12, 2020 1:00am takes morning/evening and more often if needed. peg 400-propylen e glycol (SYSTANE ULTRA) 0.4-0.3 % drops Instill 1 drop into each eye as needed Active Polyethyl Glycol -Propyl Glycol (Systane Ultra) 0.4-0.3 % solution Administer into affected eye(s). Active polyethyl glycol -propyl glycol 0.4-0.3 % (SYSTANE) 0.4-0.3 % ophthalmic solution 2 drops as needed for Dry Eyes Active take 1 drop(s) into the eye(s) once daily as needed Systane Ultra 0.4-0.3 % as directed Ophthalmic 1 DROP INTO EACH EYE ONCE A DAY NEEDED Active polyvinyl alcohol 0.014 ml/ml ophthalmic solution (1 source) Start: 03-29-2024 Propylene glycol (7 sources) take 2 drop(s) into the eye(s) twice daily Propylene Glycol - as directed Ophthalmic 2 DROPS TWO TIMES A DAY IN BOTH EYES Active 1000 ml sodium chloride 9 mg/ml injection (6 sources) Start: 03-29-2024 5-40 mL, Intra VENous, EVERY 12 HOURS SCHEDULED (2 times per day), First dose on Thu03/29/24 at 2100, Until Discontinued, For Line Patency: Peripheral IV = 5 mL; Midline or Central Line = 10 mL/lumen. If following IV push medication, administer flush at same rate as the IV push. Flush volume is determined by type of infusion therapy being given. For non-viscous solutions use: Peripheral IV = 5 mL Midline or Central Line = 10 mL/lumen For viscous solutions (i.e. blood components, parenteral nutrition, contrast media, or after obtaining blood sample) use: Peripheral IV = 10 mL Midline or Central Line = 20 mL/lumen, Post-op Start: 03-29-2024 End: 04-02-2024 IntraVENous, at 240 mL/hr, A dminister over 10 Minutes, PRN, blood administration, Starting on Thu04/02/24 at 0800, For 1 dose, For use in priming line prior to transfusion (prime via gravity) and flush line post transfusion ONLY. Discontinue once line has been cleared of remaining blood product. Start: 03-29-2024 Start: 03-29-2024 End: 03-29-2024 IntraVENous, at 5-250 mL/hr, PRN, if patient receiving piggyback infusions and maintenance fluids are not ordered, Starting on Thu03/29/24 at 1150, For piggyback infusion, administer at same rate as piggyback for a total of 25 mL. Enter 25 mL into dose field and piggyback rate into rate field of order. If piggyback is infusing at a rate less than 100 mL/hr, enter 25 mL into dose field and 100 mL/hr into rate field of order., Pre-op (day of surgery) tiZANidine 2 mg oral tablet (8 sources) Central alpha-2 Adrenergic Agonist take 1 tablet by mouth every eight hours tiZANidine HCl 2 MG 1 tablet as needed Orally Three times a day Active triamcinolone acetonide 1 mg/ml topical cream (20 sources) Corticosteroid Start: 03-29-19 apply 1 dose topically twice daily Topical, 2 TIMES DAILY, First dose on Thu03/29/24 at 2100, Apply to dry skin. Start: 02-27-2024 triamcinolone (KENALOG) 0.1 % ointment Indications: Dermatitis APPLY TOPICALLY TO THE AFFECTED AREA EVERY MORNING AND EVERY NIGHT AT BEDTIME 80 g 1 02/27/2024 Active Start: 08-19-2023 Triamcinolone Acetonide Active APPLIC TOPICAL August 19, 2023 12:00am Start: 01-25-2023 End: 02-27-2024 triamcinolone (KENALOG) 0.1 % ointment Indications: Dermatitis APPLY 1 APPLICATION TOPICALLY TO AFFECTED AREA EVERY MORNING THEN APPLY 1 APPLICATION BEFORE BEDTIME 80 g 1 11/10/2023 Active vitamin b12 1 mg oral tablet (20 sources) Vitamin B12 Start: 03-12-2024 take 1 tablet by mouth in the morning cyanocobalamin 1000 MCG tablet Take 1 tablet (1,000 mcg total) by mouth in the morning. 90 tablet 1 03/12/2024 Active Start: 09-30-2021 End: 03-10-2024 take 1 tablet by mouth in the [...] 325 mg oral tablet (20 sources) Start: 03-29-2024 650 mg, Oral, EVERY 6 HOURS PRN, Starting on Thu03/29/24 at 1958, Until Discontinued, Pain Mild (1-3), Fever, Maximum dose of acetaminophen is 4000 mg from all sources in 24 hours., Post-op Start: 04-03-2020 End: 06-17-2021 take 162.5 mg [...] 2020 2:16pm take 1 tablet by allyson every six hours oxyCODONE-Acetaminophen 7.5-325 MG 1 [...] 21, 2020 1:00am April 03, 2020 9:58am bisacodyl 5 mg delayed release oral tablet (3 sources) Stimulant Laxative Start: 04-01-2024 take 10 mg by mouth once daily 10 mg, Oral, DAILY, First dose (after last modification) on Thu04/01/24 at 0900, Until Discontinued, Do not crush or break., Post-op Start: 03-29-2024 End: 03-31-2024 take 5 mg by mouth once daily 5 mg, Oral, DAILY, First dose on Thu03/29/24 at 2100, Until Discontinued, Do not crush or break., Post-op Start: 03-29-2024 calcium carbonate 1250 mg or al tablet (20 sources) Start: 03-21-2020 End: 04-03-2020 Calcium Carbonate (Oyster Sh ell Calcium 500) 500 mg calcium (1,250 mg) tablet Discontinued 500 MG PO Every morning March 21, 2020 5:29pm April 03, 2020 9:58am Start: 03-12-2020 End: 03-21-2020 take 1 tablet by mouth once daily Calcium Carbonate (Calcium 600) 600 mg calcium (1,500 mg) Tablet Discontinued 600 MG PO Daily March 12, 2020 1:00am March 21, 2020 5:29pm ceFAZolin (ANCEF) 2,000 mg in sterile water 20 mL IV syringe (1 source) Start: 03-29-2024 End: 03-30-2024 2,000 mg, IntraVENous, EVERY 8 HOURS, 2 doses, First dose on Thu03/29/24 at 2200, Last dose on Thu03/30/24 at 0600, Antimicrobial Indications: Surgical Prophylaxis, Administer over 5 mins. Reconstitute 2 g vial with 20 mL Sterile Water. Withdraw entire contents., Post-op cephalexin 500 mg oral capsule (14 sources) Cephalosporin Antibacterial Start: 07-03-2021 End: 06-25-2023 [...] 12, 2020 1:00am March 21, 2020 5:29pm diclofenac sodium 0.01 mg/mg topical gel (20 sources) Nonsteroidal Anti-inflammatory Drug Start: 03-31-2024 2 g, Topical, 4 T IMES DAILY PRN, Starting on Thu03/31/24 at 1851, Until Discontinued, Pain, Apply to neck/shoulders. Start: 05-29-2018 End: 04-03-2020 diclofenac sodium (VOLTAREN) 1 % gel 05/29/2018 Active Diclofenac Sodiu m 1.6 % gel Apply topically. Active docusate sodium 100 mg oral capsule (12 sources) Start: 04-03-2020 End: 07-21-2023 take 1 capsule by mouth twice daily Docusate Sodium (Dok) 100 mg Capsule Discontinued 100 MG PO Twice daily 60 April 03, 2020 1:00am July 21, 2023 9:32am docusate sodium 50 mg / sennosides, [facility] 8.6 mg oral tablet (14 sources) Start: 03-29-2024 End: 03-31-2024 take 2 tablets by mouth twice daily 2 tablet, Oral, 2 TIMES DAILY, First dose (after last modification) on Thu03/31/24 at 2100, Until Discontinued, Post-op Start: 03-21-2020 End: 04-03-2020 take 2 tablets by mouth twice daily Sennosides-Docusate Sodium Discontinued 2 TAB PO Twice daily 0 March 21, 2020 1:00am April 03, 2020 9:58am 2 ml fentaNYL 0.05 mg/ml injection (1 source) Opioid Agonist Start: 03-29-2024 End: 03-29-2024 50 mcg, IntraVENous, EVERY 5 MIN PRN, 4 doses, Starting on Thu03/29/24 at 1831, Until Thu03/29/24 at 1939, Pain Severe (7-10), Phase I - Initial therapy for severe pain., PACU only hydroCHLOROthiazide 25 mg / triamterene 37.5 mg oral tablet (20 sources) Potassium-spar ing Diuretic, Thiazide Diuretic Start: 03-29-2024 take 1 tablet by mouth once daily 1 tablet, Oral, DAILY, First dose on Thu03/29/24 at 2100, Until Discontinued, Hold for sbp less than 110 Start: 10-07-2023 End: 11-17-2023 take 1 capsule by mouth once daily as needed for edema triamterene-hydroCHLOROthiazide (DYAZIDE ) 37.5-25 mg per capsule Indications: Edema of both lower legs Take 1 capsule by mouth daily as needed (edema/htn). 90 capsule 1 11/17/2023 Active Start: 09-27-2022 End: 10-07-2023 take 1 capsule by mouth every other day for edema triamterene-hydroCHLOROthiazide (DYAZIDE ) 37.5-25 mg per capsule Indications: Essential hypertension, benign take 1 capsule by mouth every other day if needed for edema 90 capsule 1 10/05/2023 10/07/2023 Discontinued Start: 06-17-2021 take 1 tablet by allyson th every other day Triamterene-Hydrochlorothiazid Active 1 TAB PO every other day June 17, 2021 12:00am Start: 03-12-2020 End: 04-03-2020 take 1 tablet by mouth once daily in the morning Triamterene-Hydrochlorothiazid Discontin ued 1 TAB PO Every morning March 21, 2020 5:29pm April 03, 2020 9:58am take 1 capsule by mouth in the morning triamterene-hydroCHLOROthiazide (Dyazide ) 37.5-25 MG capsule Take 1 capsule by mouth in the morning. Active losartan potassium 50 mg oral tablet (20 sources) Angiotensin 2 Receptor Madeline Start: 03-29-2024 50 mg, Oral, DAILY, First dose on Thu03/29/24 at 2100, Until Discontinued, Hold for sbp less than 110 Start: 10-19-2023 take 1.5 tablets by mouth in the morning losartan (COZAAR) 50 mg tablet Take 1.5 tablets (75 mg total) by mouth in the morning. 135 tablet 1 10/19/2023 Active Start: 08-19-2023 take 75 mg by mouth once daily Losartan Active 75 MG PO Daily August 19, 2023 12:00am Start: 01-25-2023 End: 10-19-2023 losartan (COZAAR) 50 mg tabl et take 1 AND 1/2 tablets by mouth once daily 135 tablet 1 01/25/2023 10/19/2023 Discontinued (Reorder) Start: 07-03-2021 End: 08-19-2023 take 100 mg [...] 03, 2020 1:00am June 17, 2021 12:49pm naloxegol 12.5 mg oral tablet (1 source) Opioid Antagonist Start: 03-31-2024 take 1 dose by mouth every hour at mealtime 12.5 mg, Oral, DAILY BEFORE BREAKFAST, First dose on Thu03/31/24 at 1730, Until Discontinued, Administer on an empty stomach at least 1 hour prior to or 2 hours after the first meal of the day. Avoid consumption of grapefruit or grapefruit juice during treatment. Prednisone (20 sources) Start: 07-03-2021 End: 06-25-2023 Prednisone Discontinued 1 dose pk PO per package directions [...] 03, 2020 1:00am June 17, 2021 12:48pm sodium phosphate, dibasic 35.5 mg/ml / sodium phosphate, monobasic 96.4 mg/ml enema (1 source) Start: 04-01-2024 End: 04-01-2024 1 enema, Rectal, ONCE, 1 dose, On Thu04/01/24 at 1530 tamsulosin hydrochloride 0.4 mg oral capsule (20 sources) alpha-Adrenerg ic Madeline Start: 03-29-2024 take 0.8 mg by mouth once daily at mealtime 0.8 mg, Oral, DAILY, First dose on Thu03/29/24 at 2200, Until Discontinued, Do not crush or break. Give 30 minutes after a full meal to limit risk of orthostatic hypotension/falls. Start: 12-28-2023 take 2 capsules by m outh once daily tamsulosin (FLOMAX) 0.4 mg capsule Indications: Enlarged prostate with urinary obstruction take 2 capsules by mouth nightly 180 capsule 1 12/28/2023 Active Start: 01-04-2023 End: 09-22-2023 take 2 capsules by mouth once daily tamsulosin (FLOMAX) 0.4 mg capsule Indications: Enlarged prostate with urinary obstruction Take 2 capsules (0.8 mg total) by mouth nightly for 90 days. 180 capsule 1 06/24/2023 Active Start: 07-01-2021 take 0.8 mg by mouth once daily at bedtime Tamsulosin Active 0.8 MG PO Daily at bedtime July 01, 2021 12:00am Start: 03-12-2020 End: 06-17-2021 take 0.8 mg by mouth once daily at bedtime Tamsulosin Discontinued 0.8 MG PO Daily at bedtime 60 April 03, 2020 1:00am June 17, 2021 12:48pm take 1 capsule by mo uth every twenty-four hours in the morning tamsulosin (Flomax) 0.4 MG 24 hr capsule Take 0.4 mg by mouth in the morning. Active take 1 capsule by mo uth every twenty-four hours Tamsulosin HCl 0.4 MG 1 capsule Orally Once a day Not-Taking temazepam 15 mg oral capsule (12 sources) [...] disease, stage 3a] Onset: 10-22-2016 Resolved: 08-21-2021 Congestive heart failure; nonhypertensive (2 sources) Chronic diastolic heart failure; Translations: [Chronic diastolic (congestive) heart failure] Onset: 04-29-2024 04-28-2024 Chronic Essential hypertension (20 sources) Hypertensive disorder; Translations: [Essential (primary) hypertension] Onset: 10-22-2016 07-01-2021 Chronic Fluid and electrolyte disorders (12 sources) Hyponatremia; Translations: [Hypo-osmolality and hyponatremia] 03-26-2020 Episodic Genitourinary symptoms and ill-defined conditions (9 sources) Increased frequency of urination; Translations: [Frequency of micturition] Onset: 03-12-2024 03-12-2024 Episodic Hyperplasia of prostate (20 sources) Benign prostatic hyperplasia; Translations: [Benign prostatic hyperplasia without lower urinary tract symptoms] Onset: 10-22-2016 Chronic Hypertension with complications and secondary hypertension (20 sources) Malignant hypertensive chronic kidney disease; Translations: [Hypertensive chronic kidney disease with stage 1 through stage 4 chronic kidney disease, or unspecified chronic kidney disease] Onset: 08-21-2021 Resolved: 08-21-2021 Chronic Osteoarthritis (20 sources) Bilateral arthropathy of joint [...] 03-25-2020 Episodic Other inflammatory condition of skin (20 sources) Rosacea; Translations: [Rosacea, unspecified] Onset: 10-22-2016 [...] [Insomnia, unspecified] 04-03-2020 Episodic Residual codes; unclassified (13 sources) Patient encounter status; Translations: [Encounter for prophylactic measures, unspecified] 03-22-2020 Episodic Residual codes; unclassified (12 sources) History of surgical procedure on cervical spine; Translations: [Other specified postprocedural states] 03-22-2020 Episodic Residual codes; unclassified (1 source) Pain; Translations: [Pain, unspecified] 04-22-2024 Episodic Spondylosis; intervertebral disc disorders; other back problems (20 sources) Cervical spondylosis with myelopathy; Translations: [Other spondylosis with myelopathy, cervical region] Onset: 02-09-2019 Resolved: 10-29-2021 Chronic Spondylosis; intervertebral disc disorders; other back problems (20 sources) Chronic low back pain; Translations: [Lumbago with sciatica, right side] Onset: 05-31-2018 Resolved: 10-29-2021 Episodic Unclassified (1 source) Concerns Onset: 05-05-2024 Unclassified (1 source) Pre-op Exam Onset: 03-21-2024 Unclassified (1 source) Annual Exam Onset: 10-07-2023 Past or Other Problems Problem Classification Problem Date Documented Da te Episodic/Chronic Allergic reactions (20 sources) Inflammatory dermatosis; Translations: [Dermatitis, unspecified] Onset: 10-25-2020 02-27-2024 Episodic Immunizations and screening for infectious disease (15 sources) Other specified abnormal immunological findings in serum; Translations: [Other and unspecified nonspecific immunological findings] Onset: 10-07-2023 Resolved: 11-25-2023 11-25-2023 Episodic Mood disorders (20 sources) Mood disorders Onset: 10-07-2023 Resolved: 02-22-2024 02-22-2024 Nutritional deficiencies (20 sources) Decreased vitamin B12 level; Translations: [Deficiency of other specified B group vitamins] Onset: 08-17-2023 03-22-2020 Episodic Other ear and sense organ disorders (20 sources) Impacted cerumen in right ear; Translations: [Impacted cerumen, right ear] Onset: 10-07-2023 10-07-2023 Episodic Other ear and sense organ disorders (1 source) Impacted cerumen of bilateral ears; Translations: [Impacted cerumen, bilateral] 10-27-2023 Episodic Other gastrointestinal disorders (20 sources) Slow transit constipation; Translations: [Slow transit constipation] Onset: 08-12-2021 08-12-2021 Episodic Other nervous system disorders (20 sources) Paresthesia of upper limb; Translations: [Anesthesia of skin] Onset: 05-06-2021 05-06-2021 Episodic Residual codes; unclassified (20 sources) H/O Spinal surgery; Translations: [Other specified postprocedural states] Onset: 08-12-2021 08-12-2021 Episodic Residual codes; unclassified (20 sources) Bilateral lower leg edema; Translations: [Localized edema] Onset: 10-07-2023 4 Episodic Residual codes; unclassified (1 source) Other specified postprocedural states; Translations: [Other specified postprocedural states] Onset: 08-12-2021 Episodic Residual codes; unclassified (1 source) Localized edema; Translations: [Localized edema] Onset: 10-07-2023 Episodic Viral infection (16 sources) COVID-19; Translations: [Other specified viral infection] Onset: 11-24-2023 Resolved: 02-22-2024 02-22-2024 Episodic Results Test Name Value Interpretation Reference Range Facility BASIC METABOLIC PANLon 05-10 Anion gap [Moles/Vol] 6 mmol/L Normal 5-15 [facility] Comment on above: Performed By: #### C BC, UPCR, CMP, 27870-2, 2777-1, 3084-1, 2731-8, 2132-9, 44521-9 #### [facility] ([id number]) [address], [address] [place] [address] Calcium [Mass/Vol] 9.3 mg/dL Normal 8.5-10.5 [facility] Comment on above: Performed By: #### C BC, UPCR, CMP, 51891-5, 2777-1, 3084-1, 2731-8, 2132-9, 96390-6 #### [facility] ([id number]) [address], [address] [place] [address] Chloride [Moles/Vol] 106 mmol/L Normal 98-109 [facility] Comment on above: Performed By: #### C BC, UPCR, CMP, 47779-9, 2777-1, 3084-1, 2731-8, 2132-9, 15451-6 #### [facility] ([id number]) [address], [address] [place] [address] CO2 [Moles/Vol] 23 mmol/L Normal 22-[address] [facility] Comment on above: Performed By: #### C BC, UPCR, CMP, 28479-7, 2777-1, 3084-1, 2731-8, 2131-9, 78739-7 #### [facility] ([id number]) [address], [address] [place] [address] Creatinine [Mass/Vol] 1.42 mg/dL High 0.70-1.20 [facility] Comment on above: Result Comment: METH OD TRACEABLE TO IDMS STANDARD Performed By: #### C BC, UPCR, CMP, 04196-3, 7-1, 3084-1, 2731-8, 2131-9, 51926-8 #### [facility] ([id number]) [address], [address] [place] [address] GFR/1.73 sq M.predicted among non-blacks MDRD (S/P/Bld) [Vol rate/Area] 49 mL/min/{1.73_m2} Low >[address] [facility] Comment on above: Result Comment: Reported eGFR is based on the CKD-EPI 2020 equation that does not use a race coefficient. Performed By: #### C BC, UPCR, CMP, 39904-9, 2776-, 3083-1, 2730-8, 9, 85329-6 #### [facility] ([id number]) [address], [address] [place] [address] Glucose [Mass/Vol] 101 mg/dL High 65-99 [facility] Comment on above: Performed By: #### C BC, UPCR, CMP, 88645-4, 2776-, 3084-1, 2731-8, 2131-9, 86428-4 #### [facility] ([id number]) [address], [address] [place] [address] Potassium [Moles/Vol] 4.2 mmol/L Normal 3.5-5.0 [facility] Comment on above: Performed By: #### C BC, UPCR, CMP, 83594-1, 2776-, 3084-1, 273-8, 2131-9, 46802-6 #### [facility] ([id number]) [address], [address] [place] [address] Sodium [Moles/Vol] 135 mmol/L Normal 134-146 [facility] Comment on above: Performed By: #### C BC, UPCR, CMP, 01598-8, 7-1, 3084-1, 2730-8, 2131-9, 85423-5 #### [facility] ([id number]) [address], [address] [place] [address] Urea nitrogen [Mass/Vol] 22 mg/dL Normal 5-[address] [facility] Comment on above: Performed By: #### C BC, UPCR, CMP, 25815-0, 7-1, 3084-1, 2730-8, 2131-9, 24784-9 #### [facility] ([id number]) [address] [place] [address] CBC AND AUTO DIFFon 04-29- 25 ABSOLUTE BASOPHIL 0.0 X10E9/L Normal 0.0-0.2 [facility] Comment on above: Performed By: #### C BC, UPCR, CMP, 03048-8, 7-1, 3084-1, 2730-8, 2131-9, 41841-8 #### [facility] ([id number]) [address], [address] [place] [address] ABSOLUTE NEUTROPHIL 2.8 X10E9/L Normal 1.5-6.6 [facility] Comment on above: Performed By: #### C BC, UPCR, CMP, 84403-4, 7-1, 3084-1, 2730-8, 2131-9, 74771-3 #### [facility] ([id number]) [address], [address] [place] [address] Basophils/100 WBC (Bld) 0.6 % Normal [facility] Comment on above: Performed By: #### C BC, UPCR, CMP, 25442-5, 2777-1, 3084-1, 2731-8, 2132-9, 15106-9 #### [facility] ([id number]) [address], [address] [place] [address] Eosinophils (Bld) [#/Vol] 0.3 10*3/uL Normal 0.0-0.[address] [facility] Comment on above: Performed By: #### C BC, UPCR, CMP, 47941-5, 2777-1, 3084-1, 2731-8, 213-9, 41511-2 #### [facility] ([id number]) [address], [address] [place] [address] Eosinophils/100 WBC (Bld) 5.3 % Normal [facility] Comment on above: Performed By: #### C BC, UPCR, CMP, 36366-4, 2777-1, 3084-1, 2731-8, 2131-9, 78980-9 #### [facility] ([id number]) [address], [address] [place] [address] Erythrocyte distribution width (RBC) [Ratio] 14.3 % Normal 11.5-15.[address] [facility] Comment on above: Performed By: #### C BC, UPCR, CMP, 30132-4, 2777-1, 3084-1, 2731-8, 2131-9, 80362-3 #### [facility] ([id number]) [address], [address] [place] [address] Hematocrit (Bld) [Volume fraction] 29.2 % Low 39-[address] [facility] Comment on above: Performed By: #### C BC, UPCR, CMP, 26346-8, 2777-1, 3084-1, 2731-8, 2132-9, 05197-2 #### [facility] ([id number]) [address], [address] [place] [address] Hemoglobin (Bld) [Mass/Vol] 10.0 g/dL Low 13.0-17.[address] [facility] Comment on above: Performed By: #### C BC, UPCR, CMP, 25914-0, 2777-1, 3084-1, 2731-8, 2132-9, 38549-5 #### [facility] ([id number]) [address], [address] [place] [address] Lymphocytes (Bld) [#/Vol] 1.2 10*3/uL Normal 1.0-3.[address] [facility] Comment on above: Performed By: #### C BC, UPCR, CMP, 78929-0, 2777-1, 3084-1, 2731-8, 2132-9, 38402-8 #### [facility] ([id number]) [address], [address] [place] [address] Lymphocytes/100 WBC (Bld) 24.6 % Normal [facility] Comment on above: Performed By: #### C BC, UPCR, CMP, 71215-5, 2777-1, 3084-1, 2731-8, 2132-9, 54892-7 #### [facility] ([id number]) [address], [address] [place] [address] MCH (RBC) [Entitic mass] 30.3 pg Normal 27-[address] [facility] Comment on above: Performed By: #### C BC, UPCR, CMP, 54306-9, 2777-1, 3084-1, 2731-8, 2132-9, 94355-4 #### [facility] ([id number]) [address], [address] [place] [address] MCHC (RBC) [Mass/Vol] 34.4 g/dL Normal 32-36 [facility] Comment on above: Performed By: #### C BC, UPCR, CMP, 94532-5, 2777-1, 3084-1, 2731-8, 2132-9, 87449-3 #### [facility] ([id number]) [address], [address] [place] [address] MCV (RBC) [Entitic vol] 88 fL Normal 80-[address] [facility] Comment on above: Performed By: #### C BC, UPCR, CMP, 84796-7, 2777-1, 3084-1, 2731-8, 2132-9, 78288-2 #### [facility] ([id number]) [address], [address] [place] [address] Monocytes (Bld) [#/Vol] 0.5 10*3/uL Normal 0-0.[address] [facility] Comment on above: Performed By: #### C BC, UPCR, CMP, 88311-5, 7-1, 3084-1, 2731-8, 2-9, 30534-9 #### [facility] ([id number]) [address], [address] [place] [address] Monocytes/100 WBC (Bld) 10.5 % Normal [facility] Comment on above: Performed By: #### C BC, UPCR, CMP, 83121-9, 2777-1, 3084-1, 2731-8, 2132-9, 71437-7 #### [facility] ([id number]) [address], [address] [place] [address] Neutrophils/100 WBC (Bld) 59.0 % Normal [facility] Comment on above: Performed By: #### C BC, UPCR, CMP, 84593-5, 2777-1, 3084-1, 2731-8, 2132-9, 36736-6 #### [facility] ([id number]) [address], [address] [place] [address] Platelet mean volume (Bld) [Entitic vol] 8.1 fL Normal 7-[address] [facility] Comment on above: Performed By: #### C BC, UPCR, CMP, 68305-1, 2777-1, 3084-1, 2731-8, 2132-9, 09285-2 #### [facility] ([id number]) [address], [address] [place] [address] Platelets (Bld) [#/Vol] 246 10*3/uL Normal 150-[address] [facility] Comment on above: Performed By: #### C BC, UPCR, CMP, 74433-6, 2777-1, 3084-1, 2731-8, 213-9, 18862-1 #### [facility] ([id number]) [address], [address] [place] [address] RBC COUNT 3.31 X10E12/L Low 4.10-5.[address] [facility] Comment on above: Performed By: #### C BC, UPCR, CMP, 88410-5, 2777-1, 3084-1, 2731-8, 2131-9, 02834-6 #### [facility] ([id number]) [address], [address] [place] [address] WBC (Bld) [#/Vol] 4.8 10*3/uL Normal 4.0-11.0 [facility] Comment on above: Performed By: #### C BC, UPCR, CMP, 76341-0, 2777-1, 3084-1, 2731-8, 2132-9, 20687-9 #### [facility] ([id number]) [address], [address] [place] [address] COMPREHENSIVE METABOLIC PANE Dima 04-29-2024 Albumin [Mass/Vol] 3.6 g/dL Normal 3.2-5.3 [facility] Comment on above: Performed By: #### C BC, UPCR, CMP, 83511-8, 2777-1, 3084-1, 2731-8, 2132-9, 11947-7 #### [facility] ([id number]) [address], [address] [place] [address] ALP [Catalytic activity/Vol] 99 U/L Normal 39-[address] [facility] Comment on above: Performed By: #### C BC, UPCR, CMP, 43938-5, 2777-1, 3084-1, 2731-8, 2132-9, 17206-7 #### [facility] ([id number]) [address], [address] [place] [address] ALT [Catalytic activity/Vol] 18 U/L Normal 0-[address] [facility] Comment on above: Performed By: #### C BC, UPCR, CMP, 54011-7, 2777-1, 3084-1, 2731-8, 2-9, 31962-1 #### [facility] ([id number]) [address], [address] [place] [address] Anion gap [Moles/Vol] 8 mmol/L Normal 5-15 [facility] Comment on above: Performed By: #### C BC, UPCR, CMP, 50727-6, 2777-1, 3084-1, 2731-8, 2132-9, 80507-9 #### [facility] ([id number]) [address], [address] [place] [address] AST [Catalytic activity/Vol] 19 U/L Normal 0-[address] [facility] Comment on above: Performed By: #### C BC, UPCR, CMP, 70288-5, 2777-1, 3084-1, 2731-8, 2132-9, 80386-6 #### [facility] ([id number]) [address] [place] [address] Bilirubin [Mass/Vol] 0.6 mg/dL Normal 0.3-1.2 [facility] Comment on above: Performed By: #### C BC, UPCR, CMP, 26208-9, 2777-1, 3084-1, 2731-8, 2132-9, 31859-4 #### [facility] ([id number]) [address], [address] [place] [address] Calcium [Mass/Vol] 9.0 mg/dL Normal 8.5-10.5 [facility] Comment on above: Performed By: #### C BC, UPCR, CMP, 19707-5, 2777-1, 3084-1, 2731-8, 2132-9, 18259-4 #### [facility] ([id number]) [address] [place] [address] Chloride [Moles/Vol] 104 mmol/L Normal 98-109 [facility] Comment on above: Performed By: #### C BC, UPCR, CMP, 21813-0, 2777-1, 3084-1, 2731-8, 2-9, 98088-8 #### [facility] ([id number]) [address] [place] [address] CO2 [Moles/Vol] 24 mmol/L Normal 22-[address] [facility] Comment on above: Performed By: #### C BC, UPCR, CMP, 84141-6, 2777-1, 3084-1, 2731-8, 2132-9, 06264-9 #### [facility] ([id number]) [address], [address] [place] [address] Creatinine [Mass/Vol] 1.62 mg/dL High 0.70-1.20 [facility] Comment on above: Result Comment: METH OD TRACEABLE TO IDMS STANDARD Performed By: #### C BC, UPCR, CMP, 83210-1, 2777-1, 3084-1, 2731-8, 2132-9, 31083-0 #### [facility] ([id number]) [address], [address] [place] [address] GFR/1.73 sq M.predicted among non-blacks MDRD (S/P/Bld) [Vol rate/Area] 42 mL/min/{1.73_m2} Low >[address] [facility] Comment on above: Result Comment: Reported eGFR is based on the CKD-EPI 2020 equation that does not use a race coefficient. Performed By: #### C BC, UPCR, CMP, 05192-5, 2777-1, 3084-1, 2731-8, 2132-9, 62355-9 #### [facility] ([id number]) [address] [place] [address] Glucose [Mass/Vol] 93 mg/dL Normal 65-99 [facility] Comment on above: Performed By: #### C BC, UPCR, CMP, 94882-4, 2777-1, 3084-1, 2731-8, 2-9, 33000-5 #### [facility] ([id number]) [address] [place] [address] Potassium [Moles/Vol] 3.9 mmol/L Normal 3.5-5.0 [facility] Comment on above: Performed By: #### C BC, UPCR, CMP, 88414-0, 2777-1, 3084-1, 2731-8, 2132-9, 83065-1 #### [facility] ([id number]) [address] [place] [address] Protein [Mass/Vol] 6.3 g/dL Normal 6.0-8.0 [facility] Comment on above: Performed By: #### C BC, UPCR, CMP, 56088-3, 2777-1, 3084-1, 2731-8, 2132-9, 14252-6 #### [facility] ([id number]) [address] [place] [address] Sodium [Moles/Vol] 136 mmol/L Normal 134-146 [facility] Comment on above: Performed By: #### C BC, UPCR, CMP, 19665-8, 2777-1, 3084-1, 2731-8, 2132-9, 20722-7 #### [facility] ([id number]) [address] [place] [address] Urea nitrogen [Mass/Vol] 28 mg/dL High 5-[address] [facility] Comment on above: Performed By: #### C BC, UPCR, CMP, 79026-0, 2777-1, 3084-1, 2731-8, 2132-9, 84997-8 #### [facility] ([id number]) [address] [place] [address] Natriuretic peptide B [Mass/ Vol]on 04-29-2024 Natriuretic peptide B (Bld) [Mass/Vol] 28 pg/mL Normal <100.[address] [facility] Comment on above: Performed By: #### C BC, UPCR, CMP, 99509-6, 2777-1, 3084-1, 2731-8, 2132-9, 18427-1 #### [facility] ([id number]) [address] [place] [address] ANION GAPon 04-03-2024 Anion gap [Moles/Vol] 13.0 mmol/L Normal 8.0-16.0 [facility] Comment on above: Result Comment: ANIO N GAP = Sodium -(Chloride + CO2) Performed By: #### H H, ANION, EGFR1, BMP #### [facility] [address] [place] [address] Anion Gapon 04-03-2024 Anion gap [Moles/Vol] 13.0 mmol/L 8.0 - 16.0 meq/L [facility] Comment on above: ANION GAP = Sodium - (Chloride + CO2) Performed at [facility] [address] [place] [address] BASIC METABOL PANELon 2024 Calcium [Mass/Vol] 8.6 mg/dL Normal 8.5-10.5 [facility] Comment on above: Performed By: #### H H, ANION, EGFR1, BMP #### [facility] [address] [place] [address] Chloride [Moles/Vol] 104 mmol/L Normal 98-111 [facility] Comment on above: Performed By: #### H H, ANION, EGFR1, BMP #### [facility] [address] [place] [address] CO2 [Moles/Vol] 23 mmol/L Normal 23-33 [facility] Comment on above: Performed By: #### H H, ANION, EGFR1, BMP #### [facility] [address] [place] [address] Creatinine [Mass/Vol] 1.2 mg/dL Normal 0.4-1.[address] [facility] Comment on above: Performed By: #### H H, ANION, EGFR1, BMP #### [facility] [address] [place] [address] Glucose [Mass/Vol] 101 mg/dL Normal 70-108 [facility] Comment on above: Performed By: #### H H, ANION, EGFR1, BMP #### [facility] [address] [place] [address] Potassium [Moles/Vol] 3.8 mmol/L Normal 3.5-5.[address] [facility] Comment on above: Performed By: #### H H, ANION, EGFR1, BMP #### [facility] [address] [place] [address] Sodium [Moles/Vol] 140 mmol/L Normal 135-145 [facility] Comment on above: Performed By: #### H H, ANION, EGFR1, BMP #### [facility] [address] [place] [address] Urea nitrogen [Mass/Vol] 28 mg/dL High 7-22 [facility] Comment on above: Performed By: #### H H, ANION, EGFR1, BMP #### [facility] [address] [place] [address] Basic metabolic 2000 panelon 04-03-2024 Calcium [Mass/Vol] 8.6 mg/dL 8.5 - 10. 5 mg/dL [facility] Comment on above: Performed at [facility] [address] [place] [address] Chloride [Moles/Vol] 104 mmol/L 98 - 11 1 meq/L [facility] CO2 [Moles/Vol] 23 mmol/L 23 - 33 meq/L [facility] Creatinine [Mass/Vol] 1.2 mg/dL 0.4 - 1.2 mg/dL [facility] Glucose [Mass/Vol] 101 mg/dL 70 - 108 mg/dL [facility] Interpretation and review of laboratory results Abnormal [facility] Potassium [Moles/Vol] 3.8 mmol/L 3.5 - 5.2 meq/L [facility] Sodium [Moles/Vol] 140 mmol/L 135 - 145 meq/L [facility] Urea nitrogen [Mass/Vol] 28 mg/dL High 7 - 22 mg/dL [facility] GFR, ESTIMATEDon 04-03-2024 GFR/1.73 sq M.predicted MDRD (S/P/Bld) [Vol rate/Area] 60 mL/min/{1.73_m2} Normal >60 [facility] Comment on above: Pediatric calculator link https://www.kidney.org/professionals/kdoqi/gfr_calculatorped Effective Dec 09, 2021 These results are not intended for use in patients <18 years of age. eGFR results are calculated without a race factor using the 2020 CKD-EPI equation. Careful clinical correlation is recommended, particularly when comparing to results calculated using previous equations. The CKD-EPI equation is less accurate in patients with extremes of muscle mass, extra-renal metabolism of creatinine, excessive creatine ingestion, or following therapy that affects renal tubular secretion. Performed at [facility] [address] [place] [address] Result Comment: Sinan atric calculator link https://www.kidney.org/professionals/kdoqi/gfr_calculatorped Effective Dec 09, 2021 These results are not intended for use in patients <18 years of age. eGFR results are calculated without a race factor using the 2020 CKD-EPI equation. Careful clinical correlation is recommended, particularly when comparing to results calculated using previous equations. The CKD-EPI equation is less accurate in patients with extremes of muscle mass, extra-renal metabolism of creatinine, excessive creatine ingestion, or following therapy that affects renal tubular secretion. Performed By: #### H H, ANION, EGFR1, BMP #### [employer] [address] HGB,HCTon 04-03-2024 Hematocrit (Bld) [Volume fraction] 28.4 % Low 42.0-52.0 [email or web address] Comment on above: Performed at [facility] [address] [place] [address] Performed By: #### H H, EGFR1, ANION, BMP #### [facility] [employer] [address] [place] [address] Hemoglobin (Bld) [Mass/Vol] 9.5 g/dL Low 14.0-18.0 [email or web address] Comment on above: Performed By: #### H H, EGFR1, ANION, BMP #### [employer] [facility] [employer] [address] [place] [address] Hematocrit (Bld) [Volume fraction] 29.6 % Low 42.0-52.0 [facility] Comment on above: Performed By: #### H H, ANION, EGFR1, BMP #### [employer] [facility] [employer] [address] [place] [address] Hemoglobin (Bld) [Mass/Vol] 9.7 g/dL Low 14.0-18.0 [facility] Comment on above: Performed By: #### H H, ANION, EGFR1, BMP #### [employer] [facility] [employer] [address] [place] [address] Hemoglobin and Hematocrit pa suzanne (Bld)on 04-03-2024 Interpretation and review of laboratory results Abnormal [facility] Hematocrit (Bld) [Volume fraction] 29.6 % Low 42.0 - 52.0 % [facility] Comment on above: Performed at [facility] [address] [place] [address] Hemoglobin (Bld) [Mass/Vol] 9.7 g/dL Low [facility] Interpretation and review of laboratory results Abnormal [facility] [employer] [facility] No Panel Informationon 04-03 [facility] ABO RHon 04-02-2024 ABO A Normal [facility] Comment on above: Performed By: #### H H, EGFR1, ANION, BMP #### [facility] [address] [place] [id number] Rh Nom (Bld) Positive Normal [facility] Comment on above: Performed at [facility] [employer] [facility] [address] [place] [address] Performed By: #### H H, EGFR1, ANION, BMP #### [facility] [facility] [employer] [address] [place] [id number] ABO and Rh group Nom (Bld)on 04-02-2024 ABO group Nom (Bld) A [facility] hospital ANION GAPon 04-02-2024 Anion gap [Moles/Vol] 12.0 mmol/L Normal 8.0-16.0 [facility] Comment on above: Result Comment: ANIO N GAP = Sodium -(Chloride + CO2) Performed By: #### H H, EGFR1, ANION, BMP #### [employer] [address] [place] [address] 52700 ANTIBODY SCREENon 04-02-2024 Indirect antiglobulin test.IgG specific reagent Ql Negative [facility] Comment on above: Performed at [facility] [address] [place] [address] Anion Gapon 04-02-2024 Anion gap [Moles/Vol] 12.0 mmol/L 8.0 - 16.0 meq/L [facility] Comment on above: ANION GAP = Sodium - (Chloride + CO2) Performed at [facility] [address] [place] [address] 12726 BASIC METABOL PANELon 2024 Calcium [Mass/Vol] 8.6 mg/dL Normal 8.5-10.5 [facility] Comment on above: Performed By: #### H H, EGFR1, ANION, BMP #### [facility] [employer] [address] [place] [address] 645[address] Chloride [Moles/Vol] 106 mmol/L Normal 98-111 [facility] Comment on above: Performed By: #### H H, EGFR1, ANION, BMP #### [facility] [address] [place] [address] CO2 [Moles/Vol] 23 mmol/L Normal 23-33 [facility] Comment on above: Performed By: #### H H, EGFR1, ANION, BMP #### [facility] [address] [place] [address] Creatinine [Mass/Vol] 1.4 mg/dL High 0.4-1.[address] [facility] Comment on above: Performed By: #### H H, EGFR1, ANION, BMP #### [facility] [address] [place] [address] Glucose [Mass/Vol] 117 mg/dL High 70-108 [facility] Comment on above: Performed By: #### H H, EGFR1, ANION, BMP #### [employer] [address] [place] [address] 76270 Potassium [Moles/Vol] 3.7 mmol/L Normal 3.5-5.[address] [facility] Comment on above: Performed By: #### H H, EGFR1, ANION, BMP #### [facility] [address] [place] [address] Sodium [Moles/Vol] 141 mmol/L Normal 135-145 [facility] Comment on above: Performed By: #### H H, EGFR1, ANION, BMP #### [employer] [address] [place] [address] 60908 Urea nitrogen [Mass/Vol] 34 mg/dL High 7-22 [facility] Comment on above: Performed By: #### H H, EGFR1, ANION, BMP #### [facility] [employer] [address] [place] [address] Basic metabolic 2000 panelon 04-02-2024 Calcium [Mass/Vol] 8.6 mg/dL 8.5 - 10. 5 mg/dL [facility] Comment on above: Performed at [facility] [address] [place] [address] Chloride [Moles/Vol] 106 mmol/L 98 - 11 1 meq/L [facility] CO2 [Moles/Vol] 23 mmol/L 23 - 33 meq/L [facility] Creatinine [Mass/Vol] 1.4 mg/dL High 0.4 - 1.2 mg/dL [facility] Glucose [Mass/Vol] 117 mg/dL High 70 - 108 mg/dL [facility] Interpretation and review of laboratory results Abnormal [facility] Potassium [Moles/Vol] 3.7 mmol/L 3.5 - 5.2 meq/L [facility] Sodium [Moles/Vol] 141 mmol/L 135 - 145 meq/L [facility] Urea nitrogen [Mass/Vol] 34 mg/dL High 7 - 22 mg/dL [facility] GEL INDIRECT COOMBSon 2024 GEL INDIRECT CATHY Negative Normal [facility] Comment on above: Performed By: #### H H, EGFR1, ANION, BMP #### [facility] [address] [place] [address] GFR, ESTIMATEDon 04-02-2024 GFR/1.73 sq M.predicted MDRD (S/P/Bld) [Vol rate/Area] 49 mL/min/{1.73_m2} Abnormal >60 [facility] Comment on above: Pediatric calculator link https://www.kidney.org/professionals/kdoqi/gfr_calculatorped Effective Dec 09, 2021 These results are not intended for use in patients <18 years of age. eGFR results are calculated without a race factor using the 2020 CKD-EPI equation. Careful clinical correlation is recommended, particularly when comparing to results calculated using previous equations. The CKD-EPI equation is less accurate in patients with extremes of muscle mass, extra-renal metabolism of creatinine, excessive creatine ingestion, or following therapy that affects renal tubular secretion. Performed at [facility] [address] [place] [address] Result Comment: Pedi atric calculator link https://www.kidney.org/professionals/kdoqi/gfr_calculatorped Effective Dec 09, 2021 These results are not intended for use in patients <18 years of age. eGFR results are calculated without a race factor using the 2020 CKD-EPI equation. Careful clinical correlation is recommended, particularly when comparing to results calculated using previous equations. The CKD-EPI equation is less accurate in patients with extremes of muscle mass, extra-renal metabolism of creatinine, excessive creatine ingestion, or following therapy that affects renal tubular secretion. Performed By: #### H H, EGFR1, ANION, BMP #### [employer] [address] [place] [address] 07582 Glomerular Filtration Rate, Estimatedon 04-02-2024 Interpretation and review of laboratory results Abnormal [facility] HGB,HCTon 04-02-2024 Hematocrit (Bld) [Volume fraction] 20.7 % Critically low 42.0-52.0 [facility] Comment on above: Performed By: #### H H, EGFR1, ANION, BMP #### [employer] [address] [place] [address]164 Hemoglobin (Bld) [Mass/Vol] 6.9 g/dL Critically low 14.0-18.0 [facility] Comment on above: Performed By: #### H H, EGFR1, ANION, BMP #### [employer] [address] [place] [address] 10909 Hemoglobin and Hematocrit pa suzanne (Bld)on 04-02-2024 Hematocrit (Bld) [Volume fraction] 20.7 % Critically low 42.0 - 52.0 % [facility] Comment on above: Performed at [facility] [address] [place] [address] Hemoglobin (Bld) [Mass/Vol] 6.9 g/dL Critically low [facility] Interpretation and review of laboratory results Abnormal [facility] Indirect antiglobulin test.I gG specific reagent Qlon 04-02-2024 [facility] LEUKO-REDUCED RCon -1 LEUKOREDUCED RED CELLS Normal [facility] Comment on above: Result Comment: [id number] transfused [id number] transfused Performed By: #### H H, EGFR1, ANION, BMP #### [employer] [address] [place] [address] 65[address] No Panel Informationon 04-02 [facility] ANION GAPon 04-01-2024 Anion gap [Moles/Vol] 9.0 mmol/L Normal 8.0-16.[address] [facility] Comment on above: Result Comment: ANIO N GAP = Sodium -(Chloride + CO2) Performed By: #### H H, EGFR1, ANION, BMP #### [employer] [facility] [address] [place] [address] 37131 Anion Gapon 04-01-2024 Anion gap [Moles/Vol] 9.0 mmol/L 8.0 - 16.0 meq/L [facility] Comment on above: ANION GAP = Sodium - (Chloride + CO2) Performed at [facility] [address] [place] [address] 19461 BASIC METABOL PANELon 2024 Calcium [Mass/Vol] 8.4 mg/dL Low 8.5-10.5 [facility] Comment on above: Performed By: #### H H, EGFR1, ANION, BMP #### [employer] [address] [address] Chloride [Moles/Vol] 104 mmol/L Normal 98-111 [facility] Comment on above: Performed By: #### H H, EGFR1, ANION, BMP #### [facility] [employer] [address] [place] [address] 9[address] CO2 [Moles/Vol] 23 mmol/L Normal 23-33 [facility] Comment on above: Performed By: #### H H, EGFR1, ANION, BMP #### [employer] [facility] [address] [address] Creatinine [Mass/Vol] 1.6 mg/dL High 0.4-1.[address] [facility] Comment on above: Performed By: #### H H, EGFR1, ANION, BMP #### [facility] [address] [place] [address] Glucose [Mass/Vol] 109 mg/dL High 70-108 [facility] Comment on above: Performed By: #### H H, EGFR1, ANION, BMP #### [facility] [address] [place] [address] Potassium [Moles/Vol] 4.3 mmol/L Normal 3.5-5.[address] [facility] Comment on above: Performed By: #### H H, EGFR1, ANION, BMP #### [facility] [address] [place] [address] Sodium [Moles/Vol] 136 mmol/L Normal 135-145 [facility] Comment on above: Performed By: #### H H, EGFR1, ANION, BMP #### [facility] [address] [place] [address] Urea nitrogen [Mass/Vol] 36 mg/dL High 7-22 [facility] Comment on above: Performed By: #### H H, EGFR1, ANION, BMP #### [facility] [address] [place] [address] Basic metabolic 2000 panelon 04-01-2024 Calcium [Mass/Vol] 8.4 mg/dL Low 8.5 - 10. 5 mg/dL [facility] Comment on above: Performed at [facility] [address] [place] [address] Chloride [Moles/Vol] 104 mmol/L 98 - 11 1 meq/L [facility] CO2 [Moles/Vol] 23 mmol/L 23 - 33 meq/L [facility] [employer] Creatinine [Mass/Vol] 1.6 mg/dL High 0.4 - 1.2 mg/dL [facility] Glucose [Mass/Vol] 109 mg/dL High 70 - 108 mg/dL [facility] Potassium [Moles/Vol] 4.3 mmol/L 3.5 - 5.2 meq/L [facility] Sodium [Moles/Vol] 136 mmol/L 135 - 145 meq/L [facility] Urea nitrogen [Mass/Vol] 36 mg/dL High 7 - 22 mg/dL [facility] GFR, ESTIMATEDon 04-01-2024 GFR/1.73 sq M.predicted MDRD (S/P/Bld) [Vol rate/Area] 42 mL/min/{1.73_m2} Abnormal >60 [facility] Comment on above: Pediatric calculator link https://www.kidney.org/professionals/kdoqi/gfr_calculatorped Effective Dec 09, 2021 These results are not intended for use in patients <18 years of age. eGFR results are calculated without a race factor using the 2021 CKD-EPI equation. Careful clinical correlation is recommended, particularly when comparing to results calculated using previous equations. The CKD-EPI equation is less accurate in patients with extremes of muscle mass, extra-renal metabolism of creatinine, excessive creatine ingestion, or following therapy that affects renal tubular secretion[place] [address] Result Comment: Sinan atric calculator link https://www.kidney.org/professionals/kdoqi/gfr_calculatorped Effective Dec 09, 2021 These results are not intended for use in patients <18 years of age. eGFR results are calculated without a race factor using the 2020 CKD-EPI equation. Careful clinical correlation is recommended, particularly when comparing to results calculated using previous equations. The CKD-EPI equation is less accurate in patients with extremes of muscle mass, extra-renal metabolism of creatinine, excessive creatine ingestion, or following therapy that affects renal tubular secretion. Performed By: #### H H, EGFR1, ANION, BMP #### [place] [address] HGB,HCTon 04-01-2024 Hematocrit (Bld) [Volume fraction] 22.6 % Low 42.0-52.0 [facility] Comment on above: Performed at [facility] [place] [address] Performed By: #### H H, EGFR1, ANION, BMP #### [place] [address] Hemoglobin (Bld) [Mass/Vol] 7.3 g/dL Low 14.0-18.0 [facility] Comment on above: Performed By: #### H H, EGFR1, ANION, BMP #### [employer] [address] [place] [address] Hematocrit (Bld) [Volume fraction] 22.0 % Low 42.0-52.0 [facility] Comment on above: Performed at [facility] [place] [address] Performed By: #### H H, EGFR1, ANION, BMP #### [facility] [employer] [address] [place] [address] Hemoglobin (Bld) [Mass/Vol] 7.2 g/dL Low 14.0-18.0 [facility] Comment on above: Performed By: #### H H, EGFR1, ANION, BMP #### [employer] [address] [place] [address] Hematocrit (Bld) [Volume fraction] 22.4 % Low 42.0-52.0 [facility] Comment on above: Performed at [facility] [address] [place] [address] Performed By: #### H H, EGFR1, ANION, BMP #### [facility] [address] [place] [address] Hemoglobin (Bld) [Mass/Vol] 7.4 g/dL Low 14.0-18.0 [facility] Comment on above: Performed By: #### H H, EGFR1, ANION, BMP #### [employer] [address] [place] [address] Hemoglobin and Hematocrit pa suzanne (Bld)on 04-01-2024 Interpretation and review of laboratory results Abnormal [facility] No Panel Informationon 04-01 Interpretation and review of laboratory results Abnormal [facility] ANION GAPon 03-31-2024 Anion gap [Moles/Vol] 10.0 mmol/L Normal 8.0-16.0 [facility] Comment on above: Result Comment: ANIO N GAP = Sodium -(Chloride + CO2) Performed By: #### H H, EGFR1, ANION, BMP #### [employer] [address] [place] [address] Anion Gapon 03-31-2024 Anion gap [Moles/Vol] 10.0 mmol/L 8.0 - 16.0 meq/L [facility] Comment on above: ANION GAP = Sodium - (Chloride + CO2) Performed at [facility] [address] [place] [address] BASIC METABOL PANELon 2024 Chloride [Moles/Vol] 104 mmol/L Normal 98-111 [facility] Comment on above: Performed By: #### H H, EGFR1, ANION, BMP #### [employer] [address] [place] [address] Potassium [Moles/Vol] 4.3 mmol/L Normal 3.5-5.[address] [facility] Comment on above: Performed By: #### H H, EGFR1, ANION, BMP #### [employer] [address] [place] [address] Sodium [Moles/Vol] 135 mmol/L Normal 135-145 [facility] Comment on above: Performed By: #### H H, EGFR1, ANION, BMP #### [employer] [address] [place] [address] Calcium [Mass/Vol] 8.0 mg/dL Low 8.5-10.5 [facility] Comment on above: Performed By: #### H H, EGFR1, ANION, BMP #### [employer] [address] [place] [address] CO2 [Moles/Vol] 21 mmol/L Low 23-33 [facility] Comment on above: Performed By: #### H H, EGFR1, ANION, BMP #### [employer] [address] [place] [address] Creatinine [Mass/Vol] 1.7 mg/dL High 0.4-1.[address] [facility] Comment on above: Performed By: #### H H, EGFR1, ANION, BMP #### [employer] [address] [place] [address] Glucose [Mass/Vol] 106 mg/dL Normal 70-108 [facility] Comment on above: Performed By: #### H H, EGFR1, ANION, BMP #### [employer] [address] [place] [address] Urea nitrogen [Mass/Vol] 40 mg/dL High 7-22 [facility] Comment on above: Performed By: #### H H, EGFR1, ANION, BMP #### [employer] [address] [place] [address] Basic metabolic 2000 panelon 03-31-2024 Calcium [Mass/Vol] 8.0 mg/dL Low 8.5 - 10. 5 mg/dL [facility] Comment on above: Performed at [facility] [address] [place] [address] Chloride [Moles/Vol] 104 mmol/L 98 - 11 1 meq/L [facility] [employer] CO2 [Moles/Vol] 21 mmol/L Low 23 - 33 meq/L [facility] Creatinine [Mass/Vol] 1.7 mg/dL High 0.4 - 1.2 mg/dL [facility] Glucose [Mass/Vol] 106 mg/dL 70 - 108 mg/dL [facility] Potassium [Moles/Vol] 4.3 mmol/L 3.5 - 5.2 meq/L [facility] Sodium [Moles/Vol] 135 mmol/L 135 - 145 meq/L [facility] Urea nitrogen [Mass/Vol] 40 mg/dL High 7 - 22 mg/dL [facility] GFR, ESTIMATEDon 03-31-2024 GFR/1.73 sq M.predicted MDRD (S/P/Bld) [Vol rate/Area] 39 mL/min/{1.73_m2} Abnormal >60 [facility] Comment on above: Pediatric calculator link https://www.kidney.org/professionals/kdoqi/gfr_calculatorped Effective Dec 09, 2021 These results are not intended for use in patients <18 years of age. eGFR results are calculated without a race factor using the 2020 CKD-EPI equation. Careful clinical correlation is recommended, particularly when comparing to results calculated using previous equations. The CKD-EPI equation is less accurate in patients with extremes of muscle mass, extra-renal metabolism of creatinine, excessive creatine ingestion, or following therapy that affects renal tubular secretion. [place]formed [place] [address] Result Comment: Pedi atric calculator link https://www.kidney.org/professionals/kdoqi/gfr_calculatorped Effective Dec 09, 2021 These results are not intended for use in patients <18 years of age. eGFR results are calculated without a race factor using the 2020 CKD-EPI equation. Careful clinical correlation is recommended, particularly when comparing to results calculated using previous equations. The CKD-EPI equation is less accurate in patients with extremes of muscle mass, extra-renal metabolism of creatinine, excessive creatine ingestion, or following therapy that affects renal tubular secretion. Performed By: #### H H, EGFR1, ANION, BMP #### [employer] [address] [place] [address] HGB,HCTon 03-31-2024 Hematocrit (Bld) [Volume fraction] 24.2 % Low 42.0-52.0 [facility] Comment on above: Performed at [facility] [address] [place] [address] Performed By: #### H H #### [place] [address] Hemoglobin (Bld) [Mass/Vol] 8.0 g/dL Low 14.0-18.0 [facility] Comment on above: Performed By: #### H H #### [place] [address] Hematocrit (Bld) [Volume fraction] 22.7 % Low 42.0-52.0 [facility] Comment on above: [place] [address] Performed By: #### H H, EGFR1, ANION, BMP #### [place] [address] Hemoglobin (Bld) [Mass/Vol] 7.5 g/dL Low 14.0-18.0 [facility] Comment on above: Performed By: #### H H, EGFR1, ANION, BMP #### [place] [address] Hematocrit (Bld) [Volume fraction] 23.8 % Low 42.0-52.0 [facility] Comment on above: Performed at [facility] [address] [place] [address] Performed By: #### H H, EGFR1, ANION, BMP #### [place] [address] Hemoglobin (Bld) [Mass/Vol] 7.5 g/dL Low 14.0-18.0 [facility] Comment on above: Performed By: #### H H, EGFR1, ANION, BMP #### [place] [address] Hemoglobin and Hematocrit pa suzanne (Bld)on 03-31-2024 Interpretation and review of laboratory results Abnormal [facility] Interpretation and review of laboratory results Abnormal [facility] Interpretation and review of laboratory results Abnormal [facility] No Panel Informationon 03-31 Interpretation and review of laboratory results Abnormal [facility] ANION GAPon 03-30-2024 Anion gap [Moles/Vol] 10.0 mmol/L Normal 8.0-16.0 [facility] Comment on above: Result Comment: ANIO N GAP = Sodium -(Chloride + CO2) Performed By: #### H H, EGFR1, ANION, BMP #### [employer] [facility] [address] [place] [address] Anion Gapon 03-30-2024 Anion gap [Moles/Vol] 10.0 mmol/L 8.0 - 16.0 meq/L [facility] Comment on above: ANION GAP = Sodium - (Chloride + CO2) Performed at [facility] [address] [place] [address] BASIC METABOL PANELon 2024 Calcium [Mass/Vol] 7.7 mg/dL Low 8.5-10.5 [facility] Comment on above: Performed By: #### H H, EGFR1, ANION, BMP #### [facility] [address] [place] [address] Chloride [Moles/Vol] 108 mmol/L Normal 98-111 [facility] Comment on above: Performed By: #### H H, EGFR1, ANION, BMP #### [facility] [address] [place] [address] CO2 [Moles/Vol] 21 mmol/L Low 23-33 [facility] Comment on above: Performed By: #### H H, EGFR1, ANION, BMP #### [facility] [address] [place] [address] Creatinine [Mass/Vol] 1.4 mg/dL High 0.4-1.[address] [facility] Comment on above: Performed By: #### H H, EGFR1, ANION, BMP #### [facility] [address] [place] [address] Glucose [Mass/Vol] 185 mg/dL High 70-108 [facility] Comment on above: Performed By: #### H H, EGFR1, ANION, BMP #### [facility] [address] [place] [address] Potassium [Moles/Vol] 4.9 mmol/L Normal 3.5-5.2 [facility] Comment on above: Performed By: #### H H, EGFR1, ANION, BMP #### [facility] [address] [place] [address] Sodium [Moles/Vol] 139 mmol/L Normal 135-145 [facility] Comment on above: Performed By: #### H H, EGFR1, ANION, BMP #### [facility] [address] [place] [address] Urea nitrogen [Mass/Vol] 25 mg/dL High 09-27 [facility] Comment on above: Performed By: #### H H, EGFR1, ANION, BMP #### [facility] [address] [place] [address] Basic metabolic 2000 panelon 03-30-2024 Calcium [Mass/Vol] 7.7 mg/dL Low 8.5 - 10. 5 mg/dL [facility] Comment on above: Performed at [facility] [address] [place] [address] Chloride [Moles/Vol] 108 mmol/L 98 - 11 1 meq/L [facility] CO2 [Moles/Vol] 21 mmol/L Low 23 - 33 meq/L [facility] [employer] Creatinine [Mass/Vol] 1.4 mg/dL High 0.4 - 1.2 mg/dL [facility] Glucose [Mass/Vol] 185 mg/dL High 70 - 108 mg/dL [facility] Potassium [Moles/Vol] 4.9 mmol/L 3.5 - 5.2 meq/L [facility] [employer] Sodium [Moles/Vol] 139 mmol/L 135 - 145 meq/L [facility] [employer] Urea nitrogen [Mass/Vol] 25 mg/dL High 7 - 22 mg/dL [facility] GFR, ESTIMATEDon 03-30-2024 GFR/1.73 sq M.predicted MDRD (S/P/Bld) [Vol rate/Area] 50 mL/min/{1.73_m2} Abnormal >60 [facility] Comment on above: Pediatric calculator link https://www.kidney.org/professionals/kdoqi/gfr_calculatorped Effective Dec 09, 2021 These results are not intended for use in patients <18 years of age. eGFR results are calculated without a race factor using the 2020 CKD-EPI equation. Careful clinical correlation is recommended, particularly when comparing to results calculated using previous equations. The CKD-EPI equation is less accurate in patients with extremes of muscle mass, extra-renal metabolism of creatinine, excessive creatine ingestion, or following therapy that affects renal tubular secretion. [place]formed [place] [address] Result Comment: Pedi atric calculator link https://www.kidney.org/professionals/kdoqi/gfr_calculatorped Effective Dec 09, 2021 These results are not intended for use in patients <18 years of age. eGFR results are calculated without a race factor using the 2020 CKD-EPI equation. Careful clinical correlation is recommended, particularly when comparing to results calculated using previous equations. The CKD-EPI equation is less accurate in patients with extremes of muscle mass, extra-renal metabolism of creatinine, excessive creatine ingestion, or following therapy that affects renal tubular secretion. Performed By: #### H H, EGFR1, ANION, BMP #### [employer] [address] [place] [address] HGB,HCTon 03-30-2024 Hematocrit (Bld) [Volume fraction] 22.5 % Low 42.0-52.0 [facility] Comment on above: Performed at [facility] [address] [place] [address] Performed By: #### H H, EGFR1, ANION, BMP #### [employer] [address] [place] [address] Hemoglobin (Bld) [Mass/Vol] 7.3 g/dL Low 14.0-18.0 [facility] Comment on above: Performed By: #### H H, EGFR1, ANION, BMP #### [employer] [address] [place] [address] Hematocrit (Bld) [Volume fraction] 24.5 % Low 42.0-52.0 [facility] Comment on above: Performed at [facility] [address] [place] [address] Performed By: #### H H, EGFR1, ANION, BMP #### [place] [address] Hemoglobin (Bld) [Mass/Vol] 8.1 g/dL Low 14.0-18.0 [facility] Comment on above: Performed By: #### H H, EGFR1, ANION, BMP #### [place] [address] Hematocrit (Bld) [Volume fraction] 27.1 % Low 42.0-52.0 [facility] Comment on above: Performed at [facility] [address] [place] [address] Performed By: #### H H, EGFR1, ANION, BMP #### [place] [address] Hemoglobin (Bld) [Mass/Vol] 9.1 g/dL Low 14.0-18.0 [facility] Comment on above: Performed By: #### H H, EGFR1, ANION, BMP #### [employer] [address] Hematocrit (Bld) [Volume fraction] 26.0 % Low 42.0-52.0 [facility] Comment on above: Performed at [facility] [address] [place] [address] Performed By: #### H H, EGFR1, ANION, BMP #### [place] [address] Hemoglobin (Bld) [Mass/Vol] 8.6 g/dL Low 14.0-18.0 [facility] Comment on above: Performed By: #### H H, EGFR1, ANION, BMP #### [facility] [employer] [address] [place] [address] Hemoglobin and Hematocrit pa suzanne (Bld)on 03-30-2024 Interpretation and review of laboratory results Abnormal [facility] Interpretation and review of laboratory results Abnormal [facility] [employer] [facility] Interpretation and review of laboratory results Abnormal [facility] Interpretation and review of laboratory results Abnormal [facility] No Panel Informationon 03-30 Interpretation and review of laboratory results Abnormal [facility] XR Lumbar spine Single viewo n 03-30-2024 1. Single posterolateral intraoperative view of the lumbar spine demonstrates posterior fusion hardware from L2-S1. Please refer to operative report for further details. This report has been created using voice recognition software. It may contain minor errors which are inherent in voice recognition technology. Electronically signed by Dr. Palmer Lockhart [facility] Jez Castro MD - 03/30/2024 PROCEDURE: XR LUMBAR SPINE 1 VW CLINICAL INFORMATION: L2-S1 Decompression and Fusion (Spine Lumbar) COMPARISON: No prior study. TECHNIQUE: Lumbar spine single crossfire lateral intraoperative view FINDINGS: Single posterolateral intraoperative view of the lumbar spine was obtained. Posterior fusion surgical hardware is noted from L2-S1. The visualized surgical hardware appears grossly intact. Multilevel degenerative disc disease of the lumbar spine is seen including disc base narrowing, endplate sclerosis and hypertrophic endplate change. This involves the L2-S1 levels. No loss of vertebral body height is seen. IMPRESSION: 1. Single posterolateral intraoperative view of the lumbar spine demonstrates posterior fusion hardware from L2-S1. Please refer to operative report for further details. This report has been created using voice recognition software. It may contain minor errors which are inherent in voice recognition technology. Electronically signed by Dr. Palmer Lockhart [facility] XR Lumbar spine Single viewO rdered By: Jez Lockhart on 03-30-2024 [facility] Work Phone: HGB,HCTon 03-29-2024 Hematocrit (Bld) [Volume fraction] 32.3 % Low 42.0-52.0 [facility] Comment on above: Performed at [facility] [address] [place] [address] Performed By: #### H H, EGFR1, ANION, BMP #### [facility] [address] [place] [address] Hemoglobin (Bld) [Mass/Vol] 10.5 g/dL Low 14.0-18.0 [facility] Comment on above: Performed By: #### H H, EGFR1, ANION, BMP #### [employer] [address] [place] [address] Hemoglobin and Hematocrit pa suzanne (Bld)on 03-29-2024 Interpretation and review of laboratory results Abnormal [facility] POTASSIUMon 03-29-2024 Potassium [Moles/Vol] 4.2 mmol/L Normal 3.5-5.2 [facility] Comment on above: Performed By: #### C T+S, KP #### [employer] [address] [place] [address] Potassiumon 03-29-2024 Potassium [Moles/Vol] 4.2 mmol/L 3.5 - 5.2 meq/L [facility] Comment on above: Performed at [facility] [address] [place] [address] Potassium [Moles/Vol]on 03-10 [facility] [employer] TYPE AND SCREENon 03-29-2024 ABO A [facility] Rh Factor Positive [facility] TYPE AND SCREEN CAPTUREon ABO CAPTURE A Normal [facility] Comment on above: Performed By: #### H H, EGFR1, ANION, BMP #### [employer] [address] [place] [address] INDIRECT CATHY CAPTURE Negative Normal [facility] Comment on above: Performed By: #### H H, EGFR1, ANION, BMP #### [employer] [address] [place] [address] RH CAPTURE (2 D CLONES) Positive Normal [facility] Comment on above: Performed By: #### H H, EGFR1, ANION, BMP #### [employer] [address] [place] [address] XR Lumbar spine Single viewo n 03-29-2024 Radiology Study observation (narrative) [facility] BASIC METABOLIC PANLon 03-16 Anion gap [Moles/Vol] 9 mmol/L Normal 5-15 [facility] Comment on above: Performed By: #### C BC, UPCR, CMP, 94159-4, 2777-1, 3084-1, 2731-8, 2132-9, 58273-6 #### [facility] ([id number]) [address], [address] [place] [address] Calcium [Mass/Vol] 9.7 mg/dL Normal 8.5-10.5 [facility] Comment on above: Performed By: #### C BC, UPCR, CMP, 64438-4, 2777-1, 3084-1, 2731-8, 2132-9, 08954-9 #### [facility] ([id number]) [address], [address] [place] [address] Chloride [Moles/Vol] 103 mmol/L Normal 98-109 [facility] Comment on above: Performed By: #### C BC, UPCR, CMP, 35579-9, 2777-1, 3084-1, 2731-8, 2-9, 75525-5 #### [facility] ([id number]) [address], [address] [place] [address] CO2 [Moles/Vol] 29 mmol/L Normal 22-[address] [facility] Comment on above: Performed By: #### C BC, UPCR, CMP, 68004-6, 2777-1, 3084-1, 2731-8, 2132-9, 70869-2 #### [facility] ([id number]) [address], [address] [place] [address] Creatinine [Mass/Vol] 1.40 mg/dL High 0.60-1.30 [facility] Comment on above: Result Comment: METH OD TRACEABLE TO IDMS STANDARD Performed By: #### C BC, UPCR, CMP, 97674-5, 2777-1, 3084-1, 2731-8, 2132-9, 45556-7 #### [facility] ([id number]) [address], [address] [place] [address] GFR/1.73 sq M.predicted among non-blacks MDRD (S/P/Bld) [Vol rate/Area] 50 mL/min/{1.73_m2} Low >[address] [facility] Comment on above: Result Comment: Reported eGFR is based on the CKD-EPI 2020 equation that does not use a race coefficient. Performed By: #### C BC, UPCR, CMP, 86808-4, 2777-1, 3084-1, 2731-8, 2132-9, 86363-4 #### [facility] ([id number]) [address], [address] [place] [address] Glucose [Mass/Vol] 92 mg/dL Normal 65-99 [facility] Comment on above: Performed By: #### C BC, UPCR, CMP, 60982-2, 2777-1, 3084-1, 2731-8, 2132-9, 85755-9 #### [facility] ([id number]) [address], [address] [place] [address] Potassium [Moles/Vol] 4.5 mmol/L Normal 3.5-5.0 [facility] Comment on above: Performed By: #### C BC, UPCR, CMP, 65411-4, 2777-1, 3084-1, 2731-8, 2132-9, 42956-7 #### [facility] ([id number]) [address], [address] [place] [address] Sodium [Moles/Vol] 141 mmol/L Normal 134-146 [facility] Comment on above: Performed By: #### C BC, UPCR, CMP, 61150-8, 2777-1, 3084-1, 2731-8, 2132-9, 67029-6 #### [facility] ([id number]) [address], [address] [place] [address] Urea nitrogen [Mass/Vol] 27 mg/dL Normal 5-[address] [facility] Comment on above: Performed By: #### C BC, UPCR, CMP, 67595-1, 2777-1, 3084-1, 2731-8, 2131-9, 24040-4 #### [facility] ([id number]) [address] [place] [address] CBC AND AUTO DIFFon 03-16-19 25 ABSOLUTE BASOPHIL 0.0 X10E9/L Normal 0.0-0.2 [facility] Comment on above: Performed By: #### C BC, UPCR, CMP, 71166-3, 2777-1, 3084-1, 2731-8, 2131-9, 67010-0 #### [facility] ([id number]) [address], [address] [place] [address] ABSOLUTE NEUTROPHIL 2.5 X10E9/L Normal 1.5-6.6 [facility] Comment on above: Performed By: #### C BC, UPCR, CMP, 90053-6, 7-1, 3084-1, 1-8, 2131-9, 98002-1 #### [facility] ([id number]) [address], [address] [place] [address] Basophils/100 WBC (Bld) 0.5 % Normal [facility] Comment on above: Performed By: #### C BC, UPCR, CMP, 88289-7, 7-1, 3084-1, 1-8, 2131-9, 14164-0 #### [facility] ([id number]) [address], [address] [place] [address] Eosinophils (Bld) [#/Vol] 0.2 10*3/uL Normal 0.0-0.[address] [facility] Comment on above: Performed By: #### C BC, UPCR, CMP, 57274-6, 2777-1, 3084-1, 2731-8, 2131-9, 34301-7 #### [facility] ([id number]) [address], [address] [place] [address] Eosinophils/100 WBC (Bld) 4.5 % Normal [facility] Comment on above: Performed By: #### C BC, UPCR, CMP, 17099-5, 2777-1, 3084-1, 2731-8, 2-9, 18115-3 #### [facility] ([id number]) [address], [address] [place] [address] Erythrocyte distribution width (RBC) [Ratio] 13.6 % Normal 11.5-15.[address] [facility] Comment on above: Performed By: #### C BC, UPCR, CMP, 28616-9, 2777-1, 3084-1, 2731-8, 2131-9, 49019-3 #### [facility] ([id number]) [address], [address] [place] [address] Hematocrit (Bld) [Volume fraction] 38.0 % Low 39-[address] [facility] Comment on above: Performed By: #### C BC, UPCR, CMP, 62339-1, 2777-1, 3084-1, 2731-8, 2131-9, 32744-1 #### [facility] ([id number]) [address], [address] [place] [address] Hemoglobin (Bld) [Mass/Vol] 12.8 g/dL Low 13.0-17.[address] [facility] Comment on above: Performed By: #### C BC, UPCR, CMP, 78497-3, 2777-1, 3084-1, 2731-8, 2131-9, 96618-7 #### [facility] ([id number]) [address], [address] [place] [address] Lymphocytes (Bld) [#/Vol] 1.0 10*3/uL Normal 1.0-3.[address] [facility] Comment on above: Performed By: #### C BC, UPCR, CMP, 14485-1, 2777-1, 3084-1, 2731-8, 2132-9, 40958-3 #### [facility] ([id number]) [address], [address] [place] [address] Lymphocytes/100 WBC (Bld) 23.2 % Normal [facility] Comment on above: Performed By: #### C BC, UPCR, CMP, 00465-7, 2777-1, 3084-1, 2731-8, 2131-9, 86855-0 #### [facility] ([id number]) [address], [address] [place] [address] MCH (RBC) [Entitic mass] 31.6 pg Normal 27-[address] [facility] Comment on above: Performed By: #### C BC, UPCR, CMP, 56131-6, 7-1, 3084-1, 2731-8, 2131-9, 01141-8 #### [facility] ([id number]) [address], [address] [place] [address] MCHC (RBC) [Mass/Vol] 33.7 g/dL Normal 32-36 [facility] Comment on above: Performed By: #### C BC, UPCR, CMP, 75649-5, 2777-1, 3084-1, 2731-8, 2131-9, 86252-4 #### [facility] ([id number]) [address], [address] [place] [address] MCV (RBC) [Entitic vol] 94 fL Normal 80-[address] [facility] Comment on above: Performed By: #### C BC, UPCR, CMP, 10307-4, 2777-1, 3084-1, 2731-8, 2132-9, 88654-3 #### [facility] ([id number]) [address], [address] [place] [address] Monocytes (Bld) [#/Vol] 0.6 10*3/uL Normal 0-0.[address] [facility] Comment on above: Performed By: #### C BC, UPCR, CMP, 50675-5, 2777-1, 3084-1, 2731-8, 2-9, 78460-2 #### [facility] ([id number]) [address], [address] [place] [address] Monocytes/100 WBC (Bld) 14.1 % Normal [facility] Comment on above: Performed By: #### C BC, UPCR, CMP, 63311-5, 2777-1, 3084-1, 2731-8, 2131-9, 26813-3 #### [facility] ([id number]) [address], [address] [place] [address] Neutrophils/100 WBC (Bld) 57.7 % Normal [facility] Comment on above: Performed By: #### C BC, UPCR, CMP, 06978-1, 2777-1, 3084-1, 2731-8, 2131-9, 44560-3 #### [facility] ([id number]) [address], [address] [place] [address] Platelet mean volume (Bld) [Entitic vol] 8.0 fL Normal 7-[address] [facility] Comment on above: Performed By: #### C BC, UPCR, CMP, 62750-2, 2777-1, 3084-1, 2731-8, 2131-9, 25194-0 #### [facility] ([id number]) [address], [address] [place] [address] Platelets (Bld) [#/Vol] 214 10*3/uL Normal 150-[address] [facility] Comment on above: Performed By: #### C BC, UPCR, CMP, 82213-0, 2777-1, 3084-1, 2731-8, 2131-9, 08991-1 #### [facility] ([id number]) [address], [address] [place] [address] RBC COUNT 4.06 X10E12/L Low 4.10-5.[address] [facility] Comment on above: Performed By: #### C BC, UPCR, CMP, 41373-5, 2777-1, 3084-1, 2731-8, 2131-9, 96615-6 #### [facility] ([id number]) [address], [address] [place] [address] WBC (Bld) [#/Vol] 4.3 10*3/uL Normal 4.0-11.0 [facility] Comment on above: Performed By: #### C BC, UPCR, CMP, 47948-0, 7-1, 3084-1, 2730-8, 2131-9, 59976-0 #### [facility] ([id number]) [address] [place] [address] MRSA PCR NASALon 03-16-2024 MRSA DNA NAMRATA+probe Ql (Unsp spec) Negative Normal NEG [facility] Comment on above: Performed By: #### C BC, UPCR, CMP, 68145-6, 2777-1, 3084-1, 1-8, 2131-9, 87567-0 #### [facility] ([id number]) [address] [place] [address] PROTIME AND INRon 03-16-2024 INR Coag (PPP) [Relative time] 0.9 {INR} Normal 0.8-1.[address] [facility] Comment on above: Performed By: #### C BC, UPCR, CMP, 19298-9, 7-1, 3084-1, 2731-8, 2131-9, 49623-5 #### [facility] ([id number]) [address], [address] [place] [address] PT Coag (PPP) [Time] 10.9 s Normal 9.8-13.2 [facility] Comment on above: Performed By: #### C BC, UPCR, CMP, 50340-5, 2777-1, 3084-1, 2731-8, 2132-9, 23562-2 #### [facility] ([id number]) [address] [place] [address] XR CHEST 2 VWSon 03-16-2024 XR CHEST 2 VWS XR CHEST 2 VWS PA and lateral chest: HISTORY: Preoperative exam. Anesthesia clearance. 2 views of the chest are obtained. Cardiac and mediastinal contours are within normal limits. Lungs are clear. There is no vascular congestion, effusion, or pneumothorax. Osseous structures appear intact. IMPRESSION: No acute findings. 4 Finalized by Jhon Hughes MD on 03/16/2024 5:40 PM Normal [facility] aPTT Coag (PPP) [Time]on aPTT Coag (Bld) [Time] 34 s Normal 26-37 [facility] Comment on above: Result Comment: NEW REFERENCE RANGE Performed By: #### C BC, UPCR, CMP, 52032-6, 7-1, 3084-1, 2731-8, 2131-9, 84187-1 #### [facility] ([id number]) [address] [place] [address] COMPLETE BLOOD COUNTon 08-16 Erythrocyte distribution width (RBC) [Ratio] 14.0 % Normal 11.5-15.[address] [facility] Comment on above: Performed By: #### C BC, UPCR, CMP, 71113-4, 2777-1, 3084-1, 2731-8, 2132-9, 11374-8 #### [facility] ([id number]) [address], [address] [place] [address] Hematocrit (Bld) [Volume fraction] 39.1 % Normal 39-[address] [facility] Comment on above: Performed By: #### C BC, UPCR, CMP, 51573-8, 2777-1, 3084-1, 2731-8, 2132-9, 92830-4 #### [facility] ([id number]) [address], [address] [place] [address] Hemoglobin (Bld) [Mass/Vol] 13.6 g/dL Normal 13.0-17.[address] [facility] Comment on above: Performed By: #### C BC, UPCR, CMP, 80276-4, 2777-1, 3084-1, 2731-8, 2132-9, 24245-6 #### [facility] ([id number]) [address] [place] [address] MCH (RBC) [Entitic mass] 32.9 pg Normal 27-[address] [facility] Comment on above: Performed By: #### C BC, UPCR, CMP, 04528-7, 2777-1, 3084-1, 2731-8, 2131-9, 82825-5 #### [facility] ([id number]) [address], [address] [place] [address] MCHC (RBC) [Mass/Vol] 34.9 g/dL Normal 32-36 [facility] Comment on above: Performed By: #### C BC, UPCR, CMP, 68700-4, 2777-1, 3084-1, 2731-8, 2-9, 69256-7 #### [facility] ([id number]) [address], [address] [place] [address] MCV (RBC) [Entitic vol] 94 fL Normal 80-[address] [facility] Comment on above: Performed By: #### C BC, UPCR, CMP, 00392-1, 2777-1, 3084-1, 2731-8, 2132-9, 65832-0 #### [facility] ([id number]) [address] [place] [address] Platelet mean volume (Bld) [Entitic vol] 8.3 fL Normal 7-[address] [facility] Comment on above: Performed By: #### C BC, UPCR, CMP, 15823-0, 2777-1, 3084-1, 2731-8, 2132-9, 05550-4 #### [facility] ([id number]) [address], [address] [place] [address] Platelets (Bld) [#/Vol] 189 10*3/uL Normal 150-[address] [facility] Comment on above: Performed By: #### C BC, UPCR, CMP, 92543-9, 2777-1, 3084-1, 2731-8, 2132-9, 49094-1 #### [facility] ([id number]) [address] [place] [address] RBC COUNT 4.15 X10E12/L Normal 4.10-5.[address] [facility] Comment on above: Performed By: #### C BC, UPCR, CMP, 35687-4, 2777-1, 3084-1, 2731-8, 2132-9, 69226-3 #### [facility] ([id number]) [address] [place] [address] WBC (Bld) [#/Vol] 5.1 10*3/uL Normal 4.0-11.0 [facility] Comment on above: Performed By: #### C BC, UPCR, CMP, 34179-3, 2777-1, 3084-1, 2731-8, 2132-9, 83877-5 #### [facility] ([id number]) [address] [place] [address] COMPREHENSIVE METABOLIC PANE Dima 08-17-2023 Albumin [Mass/Vol] 4.2 g/dL Normal 3.2-5.3 [facility] Comment on above: Performed By: #### C BC, UPCR, CMP, 62312-9, 2777-1, 3084-1, 2731-8, 2132-9, 72973-3 #### [facility] ([id number]) [address], [address] [place] [address] ALP [Catalytic activity/Vol] 61 U/L Normal 39-[address] [facility] Comment on above: Performed By: #### C BC, UPCR, CMP, 06715-4, 2777-1, 3084-1, 2731-8, 2132-9, 29998-8 #### [facility] ([id number]) [address] [place] [address] ALT [Catalytic activity/Vol] 21 U/L Normal 0-[address] [facility] Comment on above: Performed By: #### C BC, UPCR, CMP, 48827-2, 2777-1, 3084-1, 2731-8, 2132-9, 28463-1 #### [facility] ([id number]) [address] [place] [address] Anion gap [Moles/Vol] 8 mmol/L Normal 5-15 [facility] Comment on above: Performed By: #### C BC, UPCR, CMP, 72879-7, 2777-1, 3084-1, 2731-8, 2132-9, 08153-0 #### [facility] ([id number]) [address], [address] [place] [address] AST [Catalytic activity/Vol] 19 U/L Normal 0-[address] [facility] Comment on above: Performed By: #### C BC, UPCR, CMP, 45259-0, 2777-1, 3084-1, 2731-8, 2132-9, 62894-3 #### [facility] ([id number]) [address] [place] [address] Bilirubin [Mass/Vol] 0.6 mg/dL Normal 0.3-1.2 [facility] Comment on above: Performed By: #### C BC, UPCR, CMP, 24868-8, 2777-1, 3084-1, 2731-8, 2132-9, 64565-3 #### [facility] ([id number]) [address] [place] [address] Calcium [Mass/Vol] 9.7 mg/dL Normal 8.5-10.5 [facility] Comment on above: Performed By: #### C BC, UPCR, CMP, 96735-4, 2777-1, 3084-1, 2731-8, 2132-9, 89296-4 #### [facility] ([id number]) [address] [place] [address] Chloride [Moles/Vol] 104 mmol/L Normal 98-109 [facility] Comment on above: Performed By: #### C BC, UPCR, CMP, 72081-2, 2777-1, 3084-1, 2731-8, 2-9, 27622-8 #### [facility] ([id number]) [address] [place] [address] CO2 [Moles/Vol] 29 mmol/L Normal 22-[address] [facility] Comment on above: Performed By: #### C BC, UPCR, CMP, 30428-8, 2777-1, 3084-1, 2731-8, 2131-9, 13911-5 #### [facility] ([id number]) [address], [address] [place] [address] Creatinine [Mass/Vol] 1.29 mg/dL Normal 0.60-1.30 [facility] Comment on above: Result Comment: METH OD TRACEABLE TO IDMS STANDARD Performed By: #### C BC, UPCR, CMP, 07769-7, 2777-1, 3084-1, 2731-8, 2132-9, 93085-9 #### [facility] ([id number]) [address], [address] [place] [address] GFR/1.73 sq M.predicted among non-blacks MDRD (S/P/Bld) [Vol rate/Area] 55 mL/min/{1.73_m2} Low >[address] [facility] Comment on above: Result Comment: Reported eGFR is based on the CKD-EPI 2020 equation that does not use a race coefficient. Performed By: #### C BC, UPCR, CMP, 19261-2, 2777-1, 3084-1, 2731-8, 2132-9, 94906-6 #### [facility] ([id number]) [address], [address] [place] [address] Glucose [Mass/Vol] 94 mg/dL Normal 65-99 [facility] Comment on above: Performed By: #### C BC, UPCR, CMP, 96440-1, 2777-1, 3084-1, 2731-8, 2-9, 18841-5 #### [facility] ([id number]) [address], [address] [place] [address] Potassium [Moles/Vol] 4.4 mmol/L Normal 3.5-5.0 [facility] Comment on above: Performed By: #### C BC, UPCR, CMP, 23932-7, 2777-1, 3084-1, 2731-8, 2132-9, 22043-3 #### [facility] ([id number]) [address], [address] [place] [address] Protein [Mass/Vol] 6.7 g/dL Normal 6.0-8.0 [facility] Comment on above: Performed By: #### C BC, UPCR, CMP, 67374-0, 2777-1, 3084-1, 2731-8, 2132-9, 02618-1 #### [facility] ([id number]) [address], [address] [place] [address] Sodium [Moles/Vol] 141 mmol/L Normal 134-146 [facility] Comment on above: Performed By: #### C BC, UPCR, CMP, 14654-0, 2777-1, 3084-1, 2731-8, 2132-9, 30526-7 #### [facility] ([id number]) [address], [address] [place] [address] Urea nitrogen [Mass/Vol] 23 mg/dL Normal 5-[address] [facility] [address] [facility] Comment on above: Performed By: #### C BC, UPCR, CMP, 75877-0, 2777-1, 3084-1, 2731-8, 2131-9, 72768-2 #### [facility] ([id number]) [address], [address] [place] [address] MAGNESIUMon 08-17-2023 Magnesium [Mass/Vol] 2.1 mg/dL Normal 1.8-2.6 [facility] Comment on above: Performed By: #### C BC, UPCR, CMP, 03515-9, 2777-1, 3084-1, 2731-8, 2131-9, 69793-9 #### [facility] ([id number]) [address], [address] [place] [address] PHOSPHORUSon 08-17-2023 Phosphate [Mass/Vol] 2.3 mg/dL Low 2.4-4.9 [facility] Comment on above: Performed By: #### C BC, UPCR, CMP, 33651-1, 2777-1, 3084-1, 2731-8, 2131-9, 83877-4 #### [facility] ([id number]) [address], [address] [place] [address] PROTEIN CREAT RATIOon 2023 RANDOM URINE PROTEIN 190 mg/L High <120 [facility] Comment on above: Performed By: #### C BC, UPCR, CMP, 50713-9, 2777-1, 3084-1, 2731-8, 2132-9, 54091-2 #### [facility] ([id number]) [address], [address] [place] [address] U/PRO/EDITOR GREETING CARD RATIO CALC 0.14 Normal <0.2 [facility] Comment on above: Result Comment: Neph rotic Syndrome is associated with ratios >3.5 Performed By: #### C BC, UPCR, CMP, 24851-8, 2777-1, 3084-1, 2731-8, 2132-9, 01645-5 #### [facility] ([id number]) [address], [address] [place] [address] URINE CREATININE,RDM 131.58 mg/dL Normal [facility] Comment on above: Performed By: #### C BC, UPCR, CMP, 09314-2, 2777-1, 3084-1, 2731-8, 2-9, 95717-6 #### [facility] ([id number]) [address], [address] [place] [address] Parathyrin.intact [Mass/Vol] on 08-17-2023 PTH INTACT 88 pg/mL Normal 12-[address] [facility] Comment on above: Performed By: #### C BC, UPCR, CMP, 57896-1, 2777-1, 3084-1, 2731-8, 2132-9, 02406-7 #### [facility] ([id number]) [address], [address] [place] [address] URIC ACIDon 08-17-2023 Urate [Mass/Vol] 5.2 mg/dL Normal 2.6-7.2 [facility] Comment on above: Performed By: #### C BC, UPCR, CMP, 91796-9, 2777-1, 3084-1, 2731-8, 2132-9, 66396-8 #### [facility] ([id number]) [address], [address] [place] [address] URINALYSISon 08-17-2023 Bilirubin Ql (U) Negative Normal NEG [facility] Comment on above: Performed By: #### U A #### [facility] ([id number]) [address] [place] [address] BLOOD/HGB Negative Normal NEG [facility] Comment on above: Performed By: #### U A #### [facility] ([id number]) [address], [address] [place] [address] Color (U) YELLOW Normal YELLOW [facility] Comment on above: Performed By: #### U A #### [facility] ([id number]) [address] [address] [place] [address] Glucose Ql (U) Negative Normal NEG [facility] Comment on above: Performed By: #### U A #### [facility] ([id number]) [address] [place] [address] Ketones Ql (U) Negative Normal NEG [facility] Comment on above: Performed By: #### U A #### [facility] ([id number]) [address] [facility], [address] [place] [address] Leukocyte esterase Test strip Ql (U) Negative Normal NEG [facility] Comment on above: Performed By: #### U A #### [facility] ([id number]) [address], [address] [place] [address] MUCOUS PRESENT Abnormal NONE [facility] Comment on above: Performed By: #### U A #### [facility] ([id number]) [address], [address] [place] [address] Nitrite Ql (U) Negative Normal NEG [facility] Comment on above: Performed By: #### U A #### [facility] ([id number]) [address], [address] [place] [address] pH (U) 6.0 [pH] Normal 5.0-8.[address] [facility] Comment on above: Performed By: #### U A #### [facility] ([id number]) [address], [address] [place] [address] Protein Ql (U) Trace Abnormal NEG [facility] Comment on above: Performed By: #### U A #### [facility] ([id number]) [address], [address] [place] [address] R.B.CELLS 1 /hpf Normal 0-[address] [facility] Comment on above: Performed By: #### U A #### [facility] ([id number]) [address], [address] [place] [address] Specific gravity (U) [Rel density] 1.023 Normal 1.003-1.[address] [facility] Comment on above: Performed By: #### U A #### [facility] ([id number]) [address], [address] [place] [address] SQUAMOUS EPITHELIUM <1 Normal 0-5 [facility] Comment on above: Performed By: #### U A #### [facility] ([id number]) [address], [address] [place] [address] TURBIDITY CLEAR Normal CLEAR [facility] Comment on above: Performed By: #### U A #### [facility] ([id number]) [address], [address] [place] [address] Urobilinogen (U) [Mass/Vol] mg/dL Normal <1.[address] [facility] Comment on above: Performed By: #### U A #### [facility] ([id number]) [address], [address] [place] [address] W.B.CELLS 1 /hpf Normal 0-[address] [facility] Comment on above: Performed By: #### U A #### [facility] ([id number]) [address] [facility] [place] [address] VITAMIN B12on 08-17-2023 Cobalamin (Vitamin B12) [Mass/Vol] 539 pg/mL Normal 180-[address] [facility] Comment on above: Performed By: #### C BC, UPCR, CMP, 90054-4, 7-1, 3084-1, 2730-8, 2131-11, 64262-2 #### [facility] ([id number]) [address] [facility] [place] [address] Vitamin D+Metabolites [Mass/ Vol]on 08-17-2023 VITAMIN D 25 HYD TOT 58.8 ng/mL Normal 30-100 [facility] Comment on above: Result Comment: Vitamin D status 25 [place] Vitamin D Deficiency <20 ng/mL Insufficiency 20-29 ng/mL Sufficiency 30-100 ng/mL Toxicity >100 ng/mL NOTE: A pediatric reference range has not been established by the custodial engineer of this kit. The [place] [employer] recommends a Vitamin D level of = or >20ng/mL in infants and children. Performed By: #### C BC, UPCR, CMP, 65277-2, 7-1, 3084-1, 2730-8, 9, 85118-8 #### [facility] ([id number]) [address] [facility] [place] [address] XR lumbar spine AP/LAT/FLX/E XTon 07-16-2023 XR lumbar spine AP/LAT/FLX/EXT [facility] [address] [place] [address] XRay Report Signed Patient: Barry Mcmillan MR#: [id number] : 1940 Acct:[id number] Age/Sex: 83 / M ADM Date: 07/16/23 Loc: SOXD Room: Type: REG CLI Attending Dr: Angel Carbajal MD Copies to: [...] Rahul Beavers M.D.07/16/2023 11:58 AM Dictation Location: [place] [address] Transcribed By: [facility] 07/16/23 1158 Dictated By: Rahul Beavers DO 07/16/23 1157 Signed By: 07/16/23 1158 Normal [facility] XR cerv spine AP/LAT/FLX/EXT on 06-25-2023 XR cerv spine AP/LAT/FLX/EXT [facility] [place] [address] XRay Report Signed Patient: Barry Mcmillan MR#: [id number] : 1940 Acct:[id number] Age/Sex: 83 / M ADM Date: 06/25/23 Loc: XD Room: Type: [facility] CLI Attending Dr: Willian Nuñez MD Copies to: [...] Osiel Calvert M.D.06/25/2023 1:59 PM Dictation Location: [place] [address] Transcribed By: [facility] 06/25/23 1359 Dictated By: Osiel Calvert II, MD 06/25/23 1357 Signed By: 06/25/23 1359 Normal [facility] Blood hemoglobin measurement (mass/volume)Ordered By: Lynn Garcia on 08-14-2021 Hemoglobin (Bld) [Mass/Vol] 12.0 g/dL 13.0-17.0 [facility] Creatinine [Mass/volume] in UrineOrdered By: Lynn Garcia on 08-14-2021 Creatinine (U) [Mass/Vol] 27.8 mg/dL [facility] Comment on above: No reference range e stablished Creatinine and Glomerular fi ltration rate.predicted panel (S/P/Bld)Ordered By: Lynn Garcia on 08-14-2021 Creatinine [Mass/Vol] 1.35 mg/dL 0.64-1.27 [facility] Erythrocyte distribution wid th Auto (RBC) [Ratio]Ordered By: Lynn Garcia on 08-14-2021 Erythrocyte distribution width (RBC) [Ratio] 14.4 % 12.0-14.8 [facility] Estimated glomerular filtrat ion rate (GFR) non- AmericanOrdered By: Lynn Garcia on 08-14-2021 GFR/1.73 sq M.predicted among non-blacks MDRD (S/P/Bld) [Vol rate/Area] 51 mL/Min [facility] Hematocrit Auto (Bld) [Volum e fraction]Ordered By: Lynn Garcia on 08-14-2021 Hematocrit (Bld) [Volume fraction] 36.0 % 38.8-50.0 [facility] MCH Auto (RBC) [Entitic mass ]Ordered By: Lynn Garcia on 08-14-2021 MCH (RBC) [Entitic mass] 30.0 pg 27.5-35.2 [facility] MCHC Auto (RBC) [Mass/Vol]Or dered By: Lynn Garcia on 08-14-2021 MCHC (RBC) [Mass/Vol] 33.5 g/dL 32.5-35.6 [facility] MCV Auto (RBC) [Entitic vol] Ordered By: Lynn Garcia on 08-14-2021 MCV (RBC) [Entitic vol] 89.8 fL 83.5-101 [facility] No Panel InformationOrdered By: Lynn Garcia on 08-14-2021 Estimated GFR () > 60 mL/Min [facility] Comment on above: GFR estimated refere nce range: According to KDOQI guidelines, <60 ml/min/1.73m2 is sufficient to diagnose a patient with chronic kidney disease. Pharmacy Creatinine Clearance (Chem N/A [facility] Phosphate [Mass/volume] in S jill or PlasmaOrdered By: Lynn Garcia on 08-14-2021 Phosphate [Mass/Vol] 2.5 mg/dL 2.5-4.6 [facility] Platelet mean volume Auto (B ld) [Entitic vol]Ordered By: Lynn Garcia on 08-14-2021 Platelet mean volume (Bld) [Entitic vol] 7.8 fL 6.6-10.1 [facility] Platelets Auto (Bld) [#/Vol] Ordered By: Lynn Garcia on 08-14-2021 Platelets (Bld) [#/Vol] 206 10*3/uL 150-450 [facility] Protein [Mass/volume] in Uri neOrdered By: Lynn Garcia on 08-14-2021 Protein (U) [Mass/Vol] mg/dL 0-9 [facility] RBC Auto (Bld) [#/Vol]Ordere d By: Lynn Garcia on 08-14-2021 RBC (Bld) [#/Vol] 4.01 10*6/uL 3.90-5.60 [facility] Serum or plasma calcium pedro urement (mass/volume)Ordered By: Lynn Garcia on 08-14-2021 Calcium [Mass/Vol] 9.9 mg/dL 8.2-10.2 [facility] Serum or plasma chloride ira surement (moles/volume)Ordered By: Lynn Garcia on 08-14-2021 Chloride [Moles/Vol] 102 mmol/L 95-114 [facility] Serum or plasma glucose pedro urement (mass/volume)Ordered By: Lynn Garcia on 08-14-2021 Glucose [Mass/Vol] 94 mg/dL 70-100 [facility] Comment on above: ADA recommended refe rence range Random Glucose Reference Range is dependent on time and content of last meal. Glucose of more than 200 mg/dL in a nonstressed, ambulatory subject supports the diagnosis of Diabetes Mellitus. Serum or plasma intact parat hyroid hormone measurement (mass/volume)Ordered By: Lynn Garcia on 08-14-2021 Parathyrin.intact [Mass/Vol] 67.0 pg/mL 12-88 [facility] Serum or plasma potassium me asurement (moles/volume)Ordered By: Lynn Garcia 08-14-2021 Potassium [Moles/Vol] 4.4 mmol/L 3.5-5.1 [facility] Serum or plasma sodium measu rement (moles/volume)Ordered By: Lynn Garcia on 08-14-2021 Sodium [Moles/Vol] 140 mmol/L 136-146 [facility] Serum or plasma total carbon dioxide measurement (moles/volume)Ordered By: Lynn Garcia on 08-14-2021 CO2 [Moles/Vol] 24.0 mmol/L 22.0-30.0 [facility] Serum or plasma urea nitroge n measurement (mass/volume)Ordered By: Lynn Garcia on 08-14-2021 Urea nitrogen [Mass/Vol] 18 mg/dL 11-29 [facility] Urine protein/creatinine rat ioOrdered By: Lynn Garcia on 08-14-2021 Protein/Creatinine (U) [Ratio] TNP [facility] Comment on above: Test not performed WBC Auto (Bld) [#/Vol]Ordere d By: Lynn Garcia on 08-14-2021 WBC (Bld) [#/Vol] 4.9 10*3/uL 4.1-10.5 [facility] CBC with Diffon 07-16-2020 AB IMMATURE NEUT 0.03 K/UL Normal 0.0-0.1 [facility] ABS BASO 0.02 K/UL Normal 0.00-0.22 [facility] ABS EOS 0.13 K/UL Normal 0-0.45 [facility] ABS NEUTROPHILS 3.50 K/UL Normal 1.8-7.7 [facility] ABS.NEUT.CALCULATED 3.50 K/UL Normal [facility] Comment on above: Result Comment: Perf ormed at [facility] [address] [facility] [address] Basophils/100 WBC (Bld) 0.40 % Normal 0-1 [facility] DIFF TYPE AUTO DIFF Normal [facility] Eosinophils/100 WBC (Bld) 2.40 % Normal 0-3 [facility] Erythrocyte distribution width (RBC) [Ratio] 12.6 % Normal 11.7-15.0 [facility] Hematocrit (Bld) [Volume fraction] 36.2 % Low 41-50 [facility] Hemoglobin (Bld) [Mass/Vol] 12.2 g/dL Low 13.5-16.5 [facility] Lymphocytes (Bld) [#/Vol] 1.46 10*3/uL Normal 1.2-3.2 [facility] Lymphocytes/100 WBC (Bld) 26.40 % Normal 20-40 [facility] MCH (RBC) [Entitic mass] 31.0 pg Normal 26-34 [facility] MCHC 33.7 % Normal 31-37 [facility] MCV (RBC) [Entitic vol] 92.1 fL Normal 80-100 [facility] MEAN PLT VOL 9.3 CU Normal 7.0-12.6 [facility] Monocytes (Bld) [#/Vol] 0.38 10*3/uL Normal 0-0.8 [facility] Monocytes/100 WBC (Bld) 6.90 % Normal 0-8 [facility] Neutrophils/100 WBC (Bld) 0.50 % Normal 0.0-1.0 [facility] Neutrophils/100 WBC (Bld) 63.40 % Normal 50-70 [facility] Platelets (Bld) [#/Vol] 208 10*3/uL Normal 150-450 [facility] RBC (Bld) [#/Vol] 3.93 10*6/uL Low 4.5-5.5 [facility] RDW-SD 43.1 FL Normal 37.0-54.0 [facility] WBC (Bld) [#/Vol] 5.5 10*3/uL Normal 4.5-11.0 [facility] COMPREHENSIVE METABOLIC PANE Dima 07-16-2020 Anion gap [Moles/Vol] 8 mmol/L Normal 0-19 [facility] AST [Catalytic activity/Vol] 16 U/L Normal 5-40 [facility] Chloride [Moles/Vol] 104 mmol/L Normal 97-107 [facility] Albumin [Mass/Vol] 4.3 g/dL Normal 3.5-5.0 [facility] Albumin/Globulin [Mass ratio] 1.4 {ratio} Low 1.5-3.0 [facility] ALP [Catalytic activity/Vol] 70 U/L Normal 35-125 [facility] ALT [Catalytic activity/Vol] 9 U/L Normal 5-40 [facility] Bilirubin [Mass/Vol] 0.3 mg/dL Normal 0.1-1.2 [facility] Calcium [Mass/Vol] 10.6 mg/dL High 8.5-10.4 [facility] CO2 [Moles/Vol] 28 mmol/L Normal 24-31 [facility] Creatinine [Mass/Vol] 1.4 mg/dL Normal 0.4-1.6 [facility] ESTIMATED GFR 52 mL/min/1.73 m2 Normal [facility] Comment on above: Result Comment: GFR ml/min/1.73m2 Stage ----- 90 1 60-89 2 30-59 3 15-29 4 <15 5 For -Americans, multiply EGFR result by 1.210 Calculation not validated for patients under 18 years of age. Performed at [facility] [address] [facility] [address] Globulin (S) [Mass/Vol] 3.0 g/dL Normal 1.9-3.7 [facility] Glucose [Mass/Vol] 110 mg/dL High 65-99 [facility] Potassium [Moles/Vol] 4.2 mmol/L Normal 3.4-5.1 [facility] Protein [Mass/Vol] 7.3 g/dL Normal 5.9-7.9 [facility] Sodium [Moles/Vol] 140 mmol/L Normal 133-145 [facility] Urea nitrogen [Mass/Vol] 30 mg/dL High 8- [facility] Urea nitrogen/Creatinine [Mass ratio] 21.4 mg/mg High 8- [facility] EKGon 07-16-2020 Electrocardiogram EKG Ventricular Rate : 82 BPM Atrial Rate : 82 BPM P-R Interval : 170 ms QRS Duration : 100 ms Q-T Interval : 360 ms QTC Calculation(Bazett) : 420 ms Calculated P [place] : -4 degrees Calculated R [place] : -10 degrees Calculated T [place] : 57 degrees Diagnosis:Sinus rhythm with occasional Premature ventricular complexes Otherwise normal ECG No previous ECGs available Confirmed by SOPHIA CANCINO ([id number]) on 07/18/2020 11:06:00 PM [facility] SARS-CoV-2,INFLUENZA A/B NUC LEIC ACID TESTon 07-16-2020 EUA DISCLAIMER [facility] Comment on above: Result Comment: [...] is terminated or revoked sooner. Performed at [facility] [address] [facility] [address] FLU A by PCR Negative Normal [facility] FLU B by PCR Negative Normal [facility] SARS-CoV-2 (COVID-19) RNA NAMRATA+probe Ql (Unsp spec) Negative Normal NEG [facility] UA-REFLEX TO CULTUREon 07-16 RBC NONE SEEN Normal 0-3 [facility] Urinalysis dipstick W Reflex Microscopic panel (U) MANUAL MICROSCOPIC URINES Normal [facility] WBC NONE SEEN Normal 0-3 [facility] Bacteria identified Cx Nom (U) Normal [facility] Comment on above: Result Comment: CULT URE NOT INDICATED Performed at [facility] [address] [facility] [address] BILI Negative Normal NEG [facility] Clarity (U) CLEAR Normal [facility] Color (U) YELLOW Normal [facility] GLUC Negative Normal NEG [facility] Hemoglobin Ql (U) Negative Normal NEG [facility] KET Negative Normal NEG [facility] LEUK Negative Normal NEG [facility] NIT Negative Normal NEG [facility] pH (U) 6.5 [pH] Normal 4.6-8.0 [facility] PROT Negative Normal NEG [facility] SP GRAV,URINE 1.015 Normal 1.005-1.030 [facility] URO 0.2 MG/DL Normal 0-1.0 [facility] CBC (INCLUDES DIFF/PLT)on Basophils (Bld) [#/Vol] 0.031 10*3/uL Normal 0-200 [facility] Comment on above: Performed By: #### 4 05, 6417 #### [facility] [address], [address] [place], [place] [address] Party Coordinator: Catrachito Mata MD Basophils/100 WBC (Bld) 0.6 % Normal [facility] Comment on above: Performed By: #### 4 25, 4046 #### [facility] [address] [address] Party Coordinator: Catrachito Mata MD Eosinophils (Bld) [#/Vol] 0.138 10*3/uL Normal 15-500 [facility] Comment on above: Performed By: #### 4 03, 3823 #### [facility] [place] [address] [place] [address] Party Coordinator: Catrachito Mata MD Eosinophils/100 WBC (Bld) 2.7 % Normal [facility] Comment on above: Performed By: #### 4 57, 6399 #### [facility] [place] [address] Party Coordinator: Catrachito Mata MD Erythrocyte distribution width (RBC) [Ratio] 13.6 % Normal 11.0-15.0 [facility] Comment on above: Performed By: #### 4 57, 6399 #### [facility] [place] [address] Party Coordinator: Catrachito Mata MD Hematocrit (Bld) [Volume fraction] 33.9 % Low 38.5-50.0 [facility] Comment on above: Performed By: #### 4 57, 6399 #### [facility] [place] [address] Party Coordinator: Catrachito Mata MD Hemoglobin (Bld) [Mass/Vol] 11.8 g/dL Low 13.2-17.1 [facility] Comment on above: Performed By: #### 4 57, 6399 #### [facility] [place] [address] Party Coordinator: Catrachito Mata MD Lymphocytes (Bld) [#/Vol] 1.239 10*3/uL Normal 850-3900 [facility] Comment on above: Performed By: #### 4 57, 8699 #### [facility] [place] [address] Party Coordinator: Catrachito Mata MD Lymphocytes/100 WBC (Bld) 24.3 % Normal [facility] Comment on above: Performed By: #### 4 57, 6599 #### [facility] [place] [address] Party Coordinator: Catrachito Mata MD MCH (RBC) [Entitic mass] 31.8 pg Normal 27.0-33.0 [facility] Comment on above: Performed By: #### 4 57, 6399 #### [facility] of [address], [address] [place] [address] Party Coordinator: Catrachito Mata MD MCHC (RBC) [Mass/Vol] 34.8 g/dL Normal 32.0-36.[address] [facility] Comment on above: Performed By: #### 4 57, 6399 #### [facility] of [address], [address] [place] [address] Party Coordinator: Catrachito Mata MD MCV (RBC) [Entitic vol] 91.4 fL Normal 80.0-100.0 [facility] Comment on above: Performed By: #### 4 57, 6399 #### [facility] of [address], [address] [place] [address] Party Coordinator: Catrachito Mata MD Monocytes (Bld) [#/Vol] 0.469 10*3/uL Normal 200-950 [facility] Comment on above: Performed By: #### 4 57, 6399 #### [facility] of [address], [address] [place] [address] Party Coordinator: Catrachito Mata MD Monocytes/100 WBC (Bld) 9.2 % Normal [facility] Comment on above: Performed By: #### 4 57, 6399 #### [facility] of [address], [address] [place] [address] Party Coordinator: Catrachito Mata MD Neutrophils (Bld) [#/Vol] 3.223 10*3/uL Normal 2890-0295 [facility] Comment on above: Performed By: #### 4 57, 6399 #### [facility] [place] [address] Party Coordinator: Catrachito Mata MD Neutrophils/100 WBC (Bld) 63.2 % Normal [facility] Comment on above: Performed By: #### 4 57, 6399 #### [facility] [place] [address] Party Coordinator: Catrachito Mata MD Platelet mean volume (Bld) [Entitic vol] 10.0 fL Normal 7.5-12.5 [facility] Comment on above: Performed By: #### 4 57, 6399 #### [facility] [place] [address] Party Coordinator: Catrachito Mata MD Platelets (Bld) [#/Vol] 211 10*3/uL Normal 140-400 [facility] Comment on above: Performed By: #### 4 57, 6399 #### [facility] [place] [address] Party Coordinator: Catrachito Mata MD RBC (Bld) [#/Vol] 3.71 10*6/uL Low 4.20-5.80 [facility] Comment on above: Performed By: #### 4 57, 6399 #### [facility] [place] [address] Party Coordinator: Catrachito Mata MD WBC (Bld) [#/Vol] 5.1 10*3/uL Normal 3.8-10.8 [facility] Comment on above: Performed By: #### 4 57, 6399 #### [facility] [place] [address] Party Coordinator: Catrachito Mata MD FERRITINon 05-31-2020 Ferritin [Mass/Vol] 247 ng/mL Normal 24-380 [facility] Comment on above: Performed By: #### 4 57, 6399 #### [facility] [place] [address] Party Coordinator: Catrachito Mata MD TRANSFERRINon 05-31-2020 Transferrin [Mass/Vol] 229 mg/dL Normal 188-341 [facility] Comment on above: Performed By: #### 4 57, 6399 #### [facility] [place] [address] Party Coordinator: Catrachito Mata MD COVID-19 Positive/Negativeon 03-16-2020 COVID-19 Positive/Negative Negative Negative [facility] Comment on above: Testing for SARS-CoV -2 by RT-PCRThis test was developed and its performance characteristics determined by [employer] ([employer]) and validated at the [facility]. This test has not been FDA [...] Otheron 03-16-2020 Coronavirus 2019 PCR Interp N/A [facility] Automated basophil %on 03-12 Basophils/100 WBC (Bld) 0.7 % [facility] Automated basophil counton 0 03-12-2020 Basophils (Bld) [#/Vol] 0.0 10*3/uL 0.0-0.2 [facility] Automated blood lymphocyte c ount (number/volume)on 03-12-2020 Lymphocytes (Bld) [#/Vol] 1.1 10*3/uL 1.00-4.8 [facility] Automated blood lymphocyte c ount as percentage of total leukocyteson 03-12-2020 Lymphocytes/100 WBC (Bld) 25.0 % [facility] Automated blood monocyte cou nton 03-12-2020 Monocytes (Bld) [#/Vol] 0.5 10*3/uL 0.0-0.8 [facility] Automated blood platelet cou nt (count/volume)on 03-12-2020 Platelets (Bld) [#/Vol] 196 10*3/uL 150-450 [facility] Automated blood platelet ira n volume measurementon 03-12-2020 Platelet mean volume (Bld) [Entitic vol] 7.9 fL 6.6-10.1 [facility] Automated eosinophil %on Eosinophils/100 WBC (Bld) 3.3 % [facility] Automated eosinophil counton 03-12-2020 Eosinophils (Bld) [#/Vol] 0.1 10*3/uL 0.0-0.45 [facility] Automated erythrocyte distri bution width ratioon 03-12-2020 Erythrocyte distribution width (RBC) [Ratio] 13.8 % 12.0-14.8 [facility] Automated erythrocyte mean c orpuscular hemoglobin (mass per erythrocyte)on 03-12-2020 MCH (RBC) [Entitic mass] 31.1 pg 27.5-35.2 [facility] Automated erythrocyte mean c orpuscular hemoglobin concentration measurement (mass/volon 03-12-2020 MCHC (RBC) [Mass/Vol] 34.1 g/dL 32.5-35.6 [facility] Automated erythrocyte mean c orpuscular volumeon 03-12-2020 MCV (RBC) [Entitic vol] 91.3 fL 83.5-101 [facility] Automated monocyte %on 03-12 Monocytes/100 WBC (Bld) 10.8 % [facility] Automated neutrophil %on Neutrophils/100 WBC (Bld) 60.2 % [facility] Blood erythrocytes automated count (number/volume)on 03-12-2020 RBC (Bld) [#/Vol] 3.98 10*6/uL 3.90-5.60 [facility] Blood hemoglobin measurement (mass/volume)on 03-12-2020 Hemoglobin (Bld) [Mass/Vol] 12.4 g/dL 13.0-17.0 [facility] Blood leukocytes automated c ount (number/volume)on 03-12-2020 WBC (Bld) [#/Vol] 4.5 10*3/uL 4.5-11.0 [facility] Blood neutrophil count by au tomated method (number/volume)on 03-12-2020 Neutrophils (Bld) [#/Vol] 2.7 10*3/uL 1.8-7.7 [facility] Estimated glomerular filtrat ion rate (GFR) non- Americanon 03-12-2020 GFR/1.73 sq M predicted among non-blacks MDRD (S/P/Bld) [Vol rate/Area] 42 mL/min/{1.73_m2} [facility] Hematocrit [Volume Fraction] of Blood by Automated counton 03-12-2020 Hematocrit (Bld) [Volume fraction] 36.3 % 38.8-50.0 [facility] Otheron 03-12-2020 GFR/1.73 sq M.predicted MDRD (S/P/Bld) [Vol rate/Area] 51 mL/min/{1.73_m2} [facility] Comment on above: GFR estimated refere nce range: According to KDOQI guidelines, <60 ml/min/1.73m2 is sufficient to diagnose a patient with chronic kidney disease. Nucleated RBC/100 WBC (Bld) [Ratio] 0.2 % 0-0.5 [facility] Creatinine Clearance (Chem N/A [facility] Serum or plasma calcium pedro urement (mass/volume)on 03-12-2020 Calcium [Mass/Vol] 10.1 mg/dL 8.2-10.2 [facility] Serum or plasma chloride ira surement (moles/volume)on 03-12-2020 Chloride [Moles/Vol] 101 mmol/L 95-114 [facility] Serum or plasma creatinine m easurement with calculation of estimated glomerular filtron 03-12-2020 Creatinine [Mass/Vol] 1.59 mg/dL 0.64-1.27 [facility] Serum or plasma glucose pedro urement (mass/volume)on 03-12-2020 Glucose [Mass/Vol] 93 mg/dL 70-100 [facility] Comment on above: ADA recommended refe rence rangeRandom Glucose Reference Range is dependent on time and content of last meal. Glucose of more than 200 mg/dL in a nonstressed, ambulatory subject supports the diagnosis of Diabetes Mellitus. Serum or plasma potassium me asurement (moles/volume)on 03-12-2020 Potassium [Moles/Vol] 4.1 mmol/L 3.5-5.1 [facility] Serum or plasma sodium measu rement (moles/volume)on 03-12-2020 Sodium [Moles/Vol] 137 mmol/L 136-146 [facility] Serum or plasma total carbon dioxide measurement (moles/volume)on 03-12-2020 CO2 [Moles/Vol] 24.3 mmol/L 22.0-30.0 [facility] Serum or plasma urea nitroge n measurement (mass/volume)on 03-12-2020 Urea nitrogen [Mass/Vol] 26 mg/dL 9- [facility] MAGNESIUMon 02-09-2020 Magnesium [Mass/Vol] 2.0 mg/dL Normal 1.5-2.5 [facility] Comment on above: Performed By: #### 7 52, 148, 509 #### [facility]-[address], [address] [place] [address] Party Coordinator: Catrachito Mata MD PHOSPHATE ( PHOSPHORUS)on 02-09-2020 Phosphate [Mass/Vol] 2.8 mg/dL Normal 2.1-4.3 [facility] Comment on above: Performed By: #### 7 10, 155, 395 #### [facility] [address] Party Coordinator: Catrachito Mata MD URIC ACIDon 02-09-2020 Urate [Mass/Vol] 7.2 mg/dL Normal 4.0-8.0 [facility] Comment on above: Result Comment: Ther apeutic target for gout patients: <6.0 mg/dL NO COLLECTION DATE RECEIVED. WE HAVE USED THE DATE THE SPECIMEN WAS RECEIVED BY THIS LABORATORY THE COLLECTION DATE. IF THIS IS INCORRECT, PLEASE CONTACT CLIENT SERVICES. PHONE NUMBER: [phone] Performed By: #### 7 61, 949, 223 #### [facility] [address] Party Coordinator: Catrachito Mata MD URIC ACIDon 08-05-2019 Urate [Mass/Vol] 7.2 mg/dL Normal 4.0-8.0 [facility] Comment on above: Result Comment: Ther apeutic target for gout patients: <6.0 mg/dL NO COLLECTION DATE RECEIVED. WE HAVE USED THE DATE THE SPECIMEN WAS RECEIVED BY THIS LABORATORY THE COLLECTION DATE. IF THIS IS INCORRECT, PLEASE CONTACT CLIENT SERVICES. PHONE NUMBER: [phone] Performed By: #### 9 05 #### [facility], [address] [place] [id number] Party Coordinator: Catrachito Mata MD Vital Signs Date Time Vital Sign Value Performing Clinician Facility 04-03-2024 08:51-0500 Body temperature 98.2 [degF] Mc Bobby MD Work Phone: [facility] 04-03-2024 08:51-0500 Diastolic blood pressure 64 mm[Hg] Mc [facility] 04-03-2024 08:51-0500 Heart rate 94 /min Mc Bobby MD [facility] 04-03-2024 08:51-0500 Respiratory rate 18 /min Mc Bobby MD [facility] 04-03-2024 08:51-0500 SaO2% (BldA) [Mass fraction] 97 % Mc Bobby MD [facility] 04-03-2024 08:51-0500 Systolic blood pressure 137 mm[Hg] Mc Bobby MD [facility] 03-29-2024 12:09-0500 Body height 182.2 cm Mc Bobby MD Work Phone: [facility] 03-29-2024 12:09-0500 Body mass index (BMI) [Ratio] 27.72 kg/m2 Mc Bobby MD Work Phone: [facility] 03-29-2024 12:09-0500 Body weight 92.08 kg Mc Bobby MD Work Phone: [facility] 03-21-2024 13:10-0500 Body height 177.8 cm Mago Mcclendon MD Work Phone: [facility] 03-21-2024 13:10-0500 Body mass index (BMI) [Ratio] 30.16 kg/m2 Mago Mcclendon MD Work Phone: [facility] 03-21-2024 13:10-0500 Body temperature 97.81 [degF] Mago Mcclendon MD Work Phone: [facility] 03-21-2024 13:10-0500 Body weight 95.35 kg Mago Mcclendon MD Work Phone: [facility] 03-21-2024 13:10-0500 Diastolic blood pressure 70 mm[Hg] Mago Mcclendon MD Work Phone: [facility] 03-21-2024 13:10-0500 Heart rate 93 /min Mago Mcclendon MD Work Phone: [facility] 03-21-2024 13:10-0500 SaO2% (BldA) [Mass fraction] 98 % Mago Mcclendon MD Work Phone: [facility] 03-21-2024 13:10-0500 Systolic blood pressure 128 mm[Hg] Mago Mcclendon MD Work Phone: [facility] 10-07-2023 10:53-0400 Body height 177.8 cm Roberta Patino APRN-INSPECTOR SOLDERING Work Phone: [facility] 10-07-2023 10:53-0400 Body mass index (BMI) [Ratio] 29.79 kg/m2 Roberta Patino APRN-INSPECTOR SOLDERING Work Phone: [facility] 10-07-2023 10:53-0400 Body temperature 98.1 [degF] Roberta Patino APRN-INSPECTOR SOLDERING Work Phone: [facility] 10-07-2023 10:53-0400 Body weight 94.17 kg Roberta Patino APRN-MAYRA Work Phone: [facility] 10-07-2023 10:53-0400 Diastolic blood pressure 70 mm[Hg] Roberta Patino APRN-INSPECTOR SOLDERING Work Phone: [facility] 10-07-2023 10:53-0400 Heart rate 86 /min Roberta Patino APRN-INSPECTOR SOLDERING Work Phone: [facility] 10-07-2023 10:53-0400 SaO2% (BldA) [Mass fraction] 99 % Roberta Patino APRN-INSPECTOR SOLDERING Work Phone: [facility] 10-07-2023 10:53-0400 Systolic blood pressure 136 mm[Hg] Roberta Patino APRN-INSPECTOR SOLDERING Work Phone: [facility] 08-31-2023 10:15-0400 Body height 177.8 cm Roberta Patino APRN-INSPECTOR SOLDERING Work Phone: [facility] 08-31-2023 10:15-0400 Body mass index (BMI) [Ratio] 29.56 kg/m2 Roberta Patino APRN-INSPECTOR SOLDERING Work Phone: [facility] 08-31-2023 10:15-0400 Body temperature 98.2 [degF] Roberta Patino APRN-INSPECTOR SOLDERING Work Phone: [facility] 08-31-2023 10:15-0400 Body weight 93.44 kg Roberta Patino APRN-INSPECTOR SOLDERING Work Phone: [facility] 08-31-2023 10:15-0400 Diastolic blood pressure 78 mm[Hg] Roberta Patino APRN-INSPECTOR SOLDERING Work Phone: [facility] 08-31-2023 10:15-0400 Heart rate 95 /min Roberta Patino APRN-INSPECTOR SOLDERING Work Phone: [facility] 08-31-2023 10:15-0400 SaO2% (BldA) [Mass fraction] 97 % Roberta Sukumar PRINTER 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 Work Phone: [facility] 08-31-2023 10:15-0400 Systolic blood pressure 140 mm[Hg] Roberta Galvinler PRINTER 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 Work Phone: [facility] 08-19-2023 14:07-0400 Body height 182.25 cm PRINTER 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 Roberta Sukumar Work Phone: [facility] 08-19-2023 14:07-0400 Body mass index (BMI) [Ratio] 28.3 kg/m2 PRINTER 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 Roberta Sukumar Work Phone: [facility] 08-19-2023 14:07-0400 Body temperature 97.5 [degF] PRINTER 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 Roberta Sukumar Work Phone: [facility] 08-19-2023 14:07-0400 Body weight 93.89 kg PRINTER 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Abel Granados Sukumar Work Phone: [facility] 08-19-2023 14:07-0400 Diastolic blood pressure 76 mm[Hg] PRINTER 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Abel Granados Sukumar Work Phone: [facility] 08-19-2023 14:07-0400 Heart rate 96 /min PRINTER 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 Roberta Sukumar Work Phone: [facility] 08-19-2023 14:07-0400 Respiratory rate 16 /min PRINTER 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 Roberta Sukumar Work Phone: [facility] 08-19-2023 14:07-0400 SaO2% (BldA) [Mass fraction] 98 % PRINTER 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Abel Granados Sukumar Work Phone: [facility] 08-19-2023 14:07-0400 Systolic blood pressure 124 mm[Hg] PRINTER 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 Robertaganesh Patino Work Phone: [facility] 07-21-2023 10:35-0400 Diastolic blood pressure 71 mm[Hg] PRINTER 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Abel Granados Sukumar Work Phone: [facility] 07-21-2023 10:35-0400 Heart rate 84 /min PRINTER 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Abel Granados Sukumar Work Phone: [facility] 07-21-2023 10:35-0400 Respiratory rate 16 /min PRINTER 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Abel Granados Sukumar Work Phone: [facility] 07-21-2023 10:35-0400 SaO2% (BldA) [Mass fraction] 97 % PRINTER 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Abel Granados Sukumar Work Phone: [facility] 07-21-2023 10:35-0400 Systolic blood pressure 126 mm[Hg] PRINTER 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Abel Granados Sukumar Work Phone: [facility] 07-21-2023 10:02-0400 Inhaled oxygen flow rate 3 L/min PRINTER 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Abel Granados Sukumar Work Phone: [facility] 07-21-2023 09:20-0400 Body height 182.88 cm PRINTER 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Abel Granados Sukumar Work Phone: [facility] 07-21-2023 09:20-0400 Body weight 93.44 kg LINDA Granados Sukumar Work Phone: [facility] 06-25-2023 10:14-0400 Body height 185.42 cm PRINTER 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Abel Granados Sukumar Work Phone: [facility] 06-25-2023 10:14-0400 Body mass index (BMI) [Ratio] 28 kg/m2 PRINTER 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Abel Granados Sukumar Work Phone: [facility] 06-25-2023 10:14-0400 Body weight 96.61 kg LINDA Granados Sukumar Work Phone: [facility] 02-18-2023 14:00-0500 Body height 185.42 cm Aziz Bakhous Other [employer] Other 02-18-2023 14:00-0500 Body mass index (BMI) [Ratio] 27.86 kg/m2 Aziz Bakhous Other [employer] Other 02-18-2023 14:00-0500 Body temperature 98.8 [degF] Azarianna Bakhous Other [employer] Other 02-18-2023 14:00-0500 Body weight 95.8 kg Aziz Bakhous Other [employer] Other 02-18-2023 14:00-0500 Diastolic blood pressure 81 mm[Hg] Aziz Bakhous Other [employer] Other 02-18-2023 14:00-0500 Respiratory rate 18 /min Cristofer Bakhous Other [employer] Other 02-18-2023 14:00-0500 SaO2% (BldA) [Mass fraction] 97 % Azarianna Bakhous Other [employer] Other 02-18-2023 14:00-0500 Systolic blood pressure 144 mm[Hg] Aziz Bakhous Other [employer] Other 08-26-2022 15:00-0400 Body height 185.42 cm Aziz Bakhous Other [employer] Other 08-26-2022 15:00-0400 Body mass index (BMI) [Ratio] 26.91 kg/m2 Aziz Bakhous Other [employer] Other 08-26-2022 15:00-0400 Body temperature 97.3 [degF] Cristofer Grey Other [employer] Other 08-26-2022 15:00-0400 Body weight 92.53 kg Cristofer Grey Other [employer] Other 08-26-2022 15:00-0400 Diastolic blood pressure 73 mm[Hg] Cristofer Grey Other [employer] Other 08-26-2022 15:00-0400 Respiratory rate 18 /min Cristofer Grey Other [employer] Other 08-26-2022 15:00-0400 SaO2% (BldA) [Mass fraction] 98 % Cristofer Grey Other [employer] Other 08-26-2022 15:00-0400 Systolic blood pressure 119 mm[Hg] Cristofer Grey Other [employer] Other 06-10-2022 14:40-0400 Body height 185.42 cm Willian Nuñez Other [employer] Other 06-10-2022 14:40-0400 Body mass index (BMI) [Ratio] 27.7 kg/m2 Willian Nuñez Other [employer] Other 06-10-2022 14:40-0400 Body weight 95.26 kg Willian Nuñez Other [employer] Other 06-10-2022 14:40-0400 Diastolic blood pressure 62 mm[Hg] Willian Nuñez Other [employer] Other 06-10-2022 14:40-0400 Systolic blood pressure 170 mm[Hg] Willian Nuñez Other [employer] Other 02-18-2022 17:20-0500 Body height 185.42 cm Azarianna Walliss Other [employer] Other 02-18-2022 17:20-0500 Body mass index (BMI) [Ratio] 27.73 kg/m2 Azarianna Bakhous Other [employer] Other 02-18-2022 17:20-0500 Body temperature 96.9 [degF] Azarianna Walliss Other [employer] Other 02-18-2022 17:20-0500 Body weight 95.35 kg Azarianna Henninghous Other [employer] Other 02-18-2022 17:20-0500 Diastolic blood pressure 89 mm[Hg] Aziz Bakhous Other [employer] Other 02-18-2022 17:20-0500 Respiratory rate 18 /min Cristofer Bakhous Other [employer] Other 02-18-2022 17:20-0500 SaO2% (BldA) [Mass fraction] 97 % Azarianna Bakhous Other [employer] Other 02-18-2022 17:20-0500 Systolic blood pressure 166 mm[Hg] Aziz Bakhous Other [employer] Other 10-29-2021 12:20-0400 Body height 185.42 cm Willian Nuñez Other [employer] Other 10-29-2021 12:20-0400 Body mass index (BMI) [Ratio] 27.7 kg/m2 Willian Nuñez Other [employer] Other 10-29-2021 12:20-0400 Body weight 95.26 kg Willian Nuñez Other [employer] Other 08-21-2021 16:00-0400 Body height 185.42 cm Cristofer Walliss Other [employer] Other 08-21-2021 16:00-0400 Body mass index (BMI) [Ratio] 27.73 kg/m2 Aziz Bakhous Other [employer] Other 08-21-2021 16:00-0400 Body temperature 96.5 [degF] Aziz Kadis Other [employer] Other 08-21-2021 16:00-0400 Body weight 95.35 kg Aziz Bakhous Other [employer] Other 08-21-2021 16:00-0400 Diastolic blood pressure 71 mm[Hg] Aziz Bakhous Other [employer] Other 08-21-2021 16:00-0400 Respiratory rate 18 /min Aziz Bakhous Other [employer] Other 08-21-2021 16:00-0400 SaO2% (BldA) [Mass fraction] 96 % Aziz Bakhous Other [employer] Other 08-21-2021 16:00-0400 Systolic blood pressure 125 mm[Hg] Aziz Bakhous Other [employer] Other 07-30-2021 12:00-0400 Body height 185.42 cm Willian Nuñez Other [employer] Other 07-30-2021 12:00-0400 Body mass index (BMI) [Ratio] 28.76 kg/m2 Willian Nuñez Other [employer] Other 07-30-2021 12:00-0400 Body weight 98.88 kg Willian Nuñez Other [employer] Other 07-15-2021 11:00-0400 Body height 185.42 cm Willian Nuñez Other [employer] Other 07-15-2021 11:00-0400 Body mass index (BMI) [Ratio] 27.84 kg/m2 Willian Nuñez Other [employer] Other 07-15-2021 11:00-0400 Body weight 95.71 kg Willian Nuñez Other [employer] Other 04-25-2021 14:00-0500 Body height 185.42 cm Willian Nuñez Other [employer] Other 04-25-2021 14:00-0500 Body mass index (BMI) [Ratio] 27.84 kg/m2 Willian Nuñez Other [employer] Other 04-25-2021 14:00-0500 Body weight 95.71 kg Willian Nuñez Other [employer] Other 03-14-2021 15:40-0500 Body height 185.42 cm Willian Nuñez Other [employer] Other 03-14-2021 15:40-0500 Body mass index (BMI) [Ratio] 27.84 kg/m2 Willian Nuñez Other [employer] Other 03-14-2021 15:40-0500 Body weight 95.71 kg Willian Nuñez Other [employer] Other 12-13-2020 15:40-0400 Body height 185.42 cm Willian Nuñez Other [employer] Other 12-13-2020 15:40-0400 Body mass index (BMI) [Ratio] 28.36 kg/m2 Willian Nuñez Other [employer] Other 12-13-2020 15:40-0400 Body weight 97.52 kg Willian Juvenal Other [employer] Other 12-13-2020 15:40-0400 Diastolic blood pressure 75 mm[Hg] Willian Nuñez Other [employer] Other 12-13-2020 15:40-0400 Systolic blood pressure 130 mm[Hg] Willian Nuñez Other [employer] Other Encounters Encounter Date Encounter Type Care Provider Facility Start: 05-10-2024 End: 05-10-2024 ambulatory [facility] Start: 05-09-2024 End: 05-09-2024 ambulatory [facility] Start: 05-05-2024 End: 05-05-2024 ambulatory [facility] Start: 05-05-2024 End: 05-05-2024 Phys/qhp telephone evaluation 5-10 min Joel Gutierrez PRINTER 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 Work Phone: [facility] Comment on above: 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 Start: 04-29-2024 End: 04-29-2024 Telephone encounter Negra Woodall [facility] Start: 04-28-2024 End: 04-28-2024 Orders Only Roberta Patino PRINTER 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 Work Phone: [facility] Comment on above: Stage 3a chronic kid melissa disease ([facility]-HCC) (Primary Dx); Essential hypertension, benign; Edema of both lower legs; Chronic diastolic congestive heart failure (CMS-HCC) Start: 04-27-2024 End: 04-28-2024 Telephone encounter Roberta Patino PRINTER 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 Work Phone: [facility] Start: 04-22-2024 End: 04-22-2024 Refill Fern Puentes NP Work Phone: [facility] Start: 03-29-2024 End: 04-03-2024 Evaluation and management of inpatient Mc Bobby MD Work Phone: [facility] Comment on above: Lumbar stenosis with neurogenic claudication (Primary Dx) Start: 03-21-2024 End: 03-21-2024 Office outpatient visit 15 minutes Mago Mcclendon MD Work Phone: [facility] Comment on above: Essential hypertensi on, benign (Primary Dx); Stage 3a chronic kidney disease ([facility]-HCC); Spinal stenosis of lumbar region with neurogenic claudication; Lumbosacral spondylosis without myelopathy Start: 03-21-2024 End: 03-21-2024 ambulatory MAGO MCCLENDON [facility] Start: 03-16-2024 Encounter for other [facility]procedural examination [facility] Start: 03-16-2024 End: 03-16-2024 [facility] Start: 03-16-2024 Encounter for preprocedural laboratory examination CRISTOFER GREY [facility] Start: 03-12-2024 End: 03-12-2024 Orders Only Roberta Loveuessler PRINTER 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 Work Phone: [facility] Comment on above: Urinary frequency (P rimary Dx) Start: 03-11-2024 End: 03-12-2024 Refill Roberta Madan Sukumar PRINTER 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 Work Phone: [facility] Start: 03-10-2024 End: 03-12-2024 [facility] Start: 02-27-2024 End: 02-27-2024 Refill [facility] Comment on above: Dermatitis Start: 02-22-2024 End: 02-22-2024 ambulatory [facility] Start: 12-25-2023 End: 12-28-2023 Refill Joel Gutierrez PRINTER 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 Work Phone: [facility] Comment on above: Enlarged prostate wi th urinary obstruction Start: 11-25-2023 End: 11-25-2023 Orders Only Roberta Patino PRINTER 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 Work Phone: [facility] Comment on above: SARS-CoV-2 positive (Primary Dx) Start: 11-24-2023 End: 11-25-2023 Orders Only Roberta Madan Sukumar PRINTER 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 Work Phone: [facility] Comment on above: SARS-CoV-2 positive (Primary Dx) Start: 11-23-2023 End: 11-25-2023 Telephone [facility] Start: 11-17-2023 End: 11-17-2023 Refill Roxi Lorenzo [facility] Comment on above: Edema of both lower legs Start: 11-10-2023 End: 11-10-2023 Refill Roxi Lorenzo [facility] Comment on above: Dermatitis Start: 11-04-2023 End: 11-04-2023 Orders Only Roberta Patino PRINTER 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 Work Phone: [facility] Comment on above: Lumbosacral spondylo sis without myelopathy (Primary Dx); Cervical neuropathic pain; S/P laminectomy; Spinal stenosis of lumbar region with neurogenic claudication Start: 10-27-2023 End: 10-27-2023 Office outpatient visit 15 minutes Mago Mcclendon MD Work Phone: [facility] Comment on above: Bilateral impacted c erumen (Primary Dx) Start: 10-27-2023 End: 10-27-2023 ambulatory MAGO MCCLENDON [facility] Start: 10-22-2023 End: 10-22-2023 ambulatory [facility] Work Phone: Start: 10-22-2023 End: 10-22-2023 Patient encounter procedure [facility] Work Phone: Start: 10-19-2023 End: 10-19-2023 Orders Only Joel Gauthiers PRINTER 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 Work Phone: [facility] Comment on above: Essential hypertensi on, benign; Cervical neuropathic pain Start: 10-14-2023 End: 10-14-2023 ambulatory PRINTER 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 Roberta Patino Work Phone: [facility] Work Phone: Start: 10-14-2023 End: 10-14-2023 Patient encounter procedure LINDA Patino Work Phone: [facility] Work Phone: Start: 10-14-2023 Non-patient / Non-visit [facility] Work Phone: Start: 10-07-2023 Patient encounter status Genevieve h Sukumar PRINTER 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 Work Phone: [facility] Start: 10-07-2023 End: 10-07-2023 Patient encounter procedure Roberta A Sukumar PRINTER 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 Work Phone: [facility] Comment on above: Medicare annual well ness visit, subsequent (Primary Dx); Encounter for immunization; Dermatitis; Right ear impacted cerumen; Edema of both lower legs Start: 10-07-2023 End: 10-07-2023 ambulatory ROBERTA PATINO [facility] Start: 10-05-2023 End: 10-05-2023 Refill Emirysqian Prasadk [facility] Comment on above: Essential hypertensi on, benign Start: 09-25-2023 End: 09-26-2023 Refill Roxi Lorenzo [facility] Start: 09-24-2023 End: 09-24-2023 Patient encounter procedure LINDA Patino Work Phone: [facility] Work Phone: Start: 09-24-2023 End: 09-24-2023 ambulatory PRINTER 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 Roberta Patino Work Phone: [facility] Start: 09-18-2023 End: 09-18-2023 ambulatory PRINTER 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 Roberta Patino Work Phone: [facility] Work Phone: Start: 09-18-2023 End: 09-18-2023 Patient encounter procedure LINDA Patino Work Phone: [facility] Work Phone: Start: 08-31-2023 End: 08-31-2023 Office outpatient visit 15 minutes Roberta Patino PRINTER 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 Work Phone: [facility] Comment on above: Essential hypertensi on, benign (Primary Dx); Stage 3a chronic kidney disease ([facility]-HCC); Spinal stenosis of lumbar region with neurogenic claudication Start: 08-31-2023 End: 08-31-2023 ambulatory [facility] [facility] Start: 08-26-2023 Non-patient / Non-visit PRINTER 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 Negro wheeler Sukumar Work Phone: [facility] Work Phone: Start: 08-19-2023 End: 08-19-2023 ambulatory PRINTER 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 Roberta Patino Work Phone: [facility] Work Phone: Start: 08-19-2023 End: 08-19-2023 Patient encounter procedure LINDA Saucedoith Sukumar Work Phone: [facility] Nephrology Work Phone: Start: 08-18-2023 End: 08-18-2023 ambulatory PRINTER 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 Roberta Patino Work Phone: [facility] Work Phone: Start: 08-18-2023 End: 08-18-2023 Patient encounter procedure LINDA Saucedoith Sukumar Work Phone: [facility] Pain Management [facility] Work Phone: Start: 08-17-2023 End: 08-17-2023 Orders Only Roberta Patino PRINTER 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 Work Phone: [facility] Comment on above: Cervical neuropathic pain Start: 08-12-2023 End: 08-12-2023 Refill Adysan Sleek BUSINESS SUPPORT COORDINATOR [facility] Start: 07-22-2023 End: 07-22-2023 Orders Only Roberta Patino PRINTER 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 Work Phone: [facility] Comment on above: Dermatitis Start: 07-21-2023 End: 07-21-2023 ambulatory Angel Solomon Facility:[facility] Start: 07-21-2023 Non-patient / Non-visit PRINTER 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 J udith Sukumar Work Phone: [facility] Work Phone: Start: 07-21-2023 End: 07-21-2023 Admission to same day surgery center PRINTER 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Abel Patino Work Phone: [facility] Work Phone: Start: 07-16-2023 End: 07-16-2023 ambulatory Angel Solomon Facility:[facility] Start: 07-16-2023 End: 07-16-2023 ambulatory LINDA Patino Work Phone: [facility] Work Phone: Start: 07-16-2023 End: 07-16-2023 Patient encounter procedure LINDA Paitno Work Phone: [facility] Work Phone: Start: 07-03-2023 End: 07-03-2023 Refill Adysan Sleek DAVONTE [facility] Comment on above: Dermatitis Start: 06-25-2023 End: 06-25-2023 ambulatory Willian Anahi Nuñez Facility:[facility] Start: 06-25-2023 End: 06-25-2023 ambulatory LINDA Patino Work Phone: [facility] Work Phone: Start: 06-25-2023 End: 06-25-2023 Patient encounter procedure LINDA Patino Work Phone: [facility] Work Phone: Start: 06-24-2023 End: 06-24-2023 Refill Adysan Sleek BUSINESS SUPPORT COORDINATOR [facility] Comment on above: Enlarged prostate wi th urinary obstruction Start: 05-29-2023 Refill Rajani Thorne CNA [facility] Comment on above: Essential hypertensi on, benign Start: 05-14-2023 Telephone encounter Rajani Thorne HE [facility] Comment on above: Care Management Start: 04-06-2023 Refill Roberta blount PRINTER 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 Work Phone: [facility] Start: 03-20-2023 Refill Roberta blount PRINTER 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 Work Phone: [facility] Start: 03-12-2023 Orders Only Roberta blount PRINTER 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 Work Phone: [facility] Comment on above: Dermatitis Start: 02-18-2023 End: 02-18-2023 ambulatory Aziz Bakhous Other [email or web address] Other Start: 02-18-2023 Office outpatient vi sit 25 minutes Aziz Bakhous [facility] Start: 08-26-2022 End: 08-26-2022 ambulatory Aziz Bakhous Other [email or web address] Other Start: 08-26-2022 Office outpatient vi sit 15 minutes Aziz Bakhous [facility] Start: 06-10-2022 End: 06-10-2022 ambulatory Willian Nuñez Other [email or web address] Other Start: 06-10-2022 Office outpatient vi sit 15 minutes Willian Nuñez [facility] Start: 02-18-2022 End: 02-18-2022 ambulatory Aziz Bakhous Other [email or web address] Other Start: 02-18-2022 Office outpatient vi sit 15 minutes Aziz Bakhous [facility] Start: 02-04-2022 End: 02-04-2022 ambulatory PRINTER 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 Roberta Patino Work Phone: [facility] Work Phone: Start: 02-04-2022 End: 02-04-2022 Patient encounter procedure PRINTER 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Abel Patino Work Phone: [facility]XRay [facility] Start: 10-29-2021 End: 10-29-2021 ambulatory Willian Nuñez Other [email or web address] Other Start: 10-29-2021 Office outpatient vi sit 15 minutes Willian Nuñez [facility] Start: 10-29-2021 End: 10-29-2021 Patient encounter procedure PRINTER 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 Roberta Patino Work Phone: [facility] Start: 09-24-2021 Encounter for genera l adult medical examination without abnormal findings ROBERTAGANESH PATINO [facility] Start: 09-24-2021 Patient encounter procedure Roberta Patino PRINTER 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-[facility] Work Phone: [facility] Start: 08-21-2021 End: 08-21-2021 ambulatory Aziz Bakanastasias Other [email or web address] Other Start: 08-21-2021 Office outpatient vi sit 15 minutes Aziz Bakanastasias [facility] Nephrology Start: 08-14-2021 End: 08-14-2021 Patient encounter procedure PRINTER 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Abel Patino Work Phone: [facility]-Lab [facility] Start: 07-30-2021 End: 07-30-2021 ambulatory Willian Nuñez Other [email or web address] Other Start: 07-30-2021 Postop follow up vis it related to original px Willian Nuñez [facility] Start: 07-15-2021 (Post-Op) Post-Op Willian Nuñez [facility] Start: 07-15-2021 End: 07-15-2021 ambulatory Willian Nuñez Other [email or web address] Other Start: 07-08-2021 End: 07-08-2021 ambulatory Willian Nuñez Other [email or web address] Other Start: 07-08-2021 Telephone encounter Willian Nuñez [facility] Start: 07-01-2021 Admission to same [facility] center Willian Nuñez [facility] Start: 07-01-2021 End: 07-01-2021 ambulatory Willian Nuñez Other [place] [employer] Other Start: 06-28-2021 End: 06-28-2021 ambulatory Lynn Garcia Other [place] [employer] Other Start: 06-28-2021 Telephone encounter Lynn Radha [facility] Nephrology Start: 04-25-2021 End: 04-25-2021 ambulatory Willian Nuñez Other [email or web address] Other Start: 04-25-2021 Office outpatient vi sit 15 minutes Willian Nuñez [facility] Neurosurgery Start: 04-10-2021 End: 04-10-2021 ambulatory Willian Nuñez Other [place] [employer] Other Start: 04-10-2021 Telephone encounter Willian Nuñez [facility] Start: 03-14-2021 End: 03-14-2021 ambulatory Willian Nuñez Other [place] [employer] Other Start: 03-14-2021 Office outpatient vi sit 15 minutes Willian Nuñez [facility] Start: 02-26-2021 End: 02-26-2021 ambulatory Lynn Virgenangeli Other [place] [employer] Other Start: 02-26-2021 Telephone encounter Lynn Virgenangeli [facility] [employer] Start: 12-13-2020 Office outpatient vi sit 15 minutes Willian Nuñez [facility] Start: 03-16-2020 End: 03-16-2020 Patient encounter procedure Jared Petty -Pre-Surgical Testing Start: 03-12-2020 End: 03-12-2020 Patient encounter procedure Jared Petty -Pre-Surgical Testing Start: 02-14-2020 End: 02-14-2020 Patient encounter procedure Jared Petty -XRay [facility] Procedures Date Procedure Procedure Detail Performing Clinician Start: 04-03-2024 Blood count hemoglobin Luiz Diglio PA Work Phone: Start: 04-03-2024 Anion gap [Moles/Vol] A tato Diglio PA Work Phone: Start: 04-03-2024 Basic metabolic pane l calcium total Luiz Diglio PA Work Phone: Start: 04-03-2024 GLOMERULAR FILTRATIO N RATE, ESTIMATED Luiz Diglio PA Work Phone: Start: 04-02-2024 End: 04-02-2024 Transfusion of packed red blood cells Luiz Diglio PA Work Phone: Start: 04-02-2024 End: 04-02-2024 Transfusion of packed red blood cells Luiz Diglio PA Work Phone: Start: 04-02-2024 Antibody screen rbc each serum technique Luiz Diglio PA Work Phone: Start: 04-02-2024 Anion gap [Moles/Vol] A tato Diglio PA Work Phone: Start: 04-02-2024 Basic metabolic pane l calcium total Luiz Diglio PA Work Phone: Start: 04-02-2024 GLOMERULAR FILTRATIO N RATE, ESTIMATED Luiz Diglio PA Work Phone: Start: 04-01-2024 Blood count hemoglobin Luiz Diglio PA Work Phone: Start: 04-01-2024 Anion gap [Moles/Vol] S mary anne Bobby MD Work Phone: Start: 04-01-2024 Basic metabolic pane l calcium total Luiz Diglio PA Work Phone: Start: 04-01-2024 GLOMERULAR FILTRATIO N RATE, ESTIMATED Mc Bobby MD Work Phone: Start: 03-31-2024 Blood count hemoglobin Mc Bobby MD Work Phone: Start: 03-31-2024 Blood count hemoglobin Mc Bobby MD Work Phone: Start: 03-31-2024 Blood count hemoglobin Mc Bobby MD Work Phone: Start: 03-31-2024 Anion gap [Moles/Vol] S mary anne Bobby MD Work Phone: Start: 03-31-2024 Basic metabolic pane l calcium total Luiz Diglio PA Work Phone: Start: 03-31-2024 GLOMERULAR FILTRATIO N RATE, ESTIMATED Mc Bobby MD Work Phone: Start: 03-30-2024 Blood count hemoglobin Mc Bobby MD Work Phone: Start: 03-30-2024 Blood count hemoglobin Mc Bobby MD Work Phone: Start: 03-30-2024 Blood count hemoglobin Mc Bobby MD Work Phone: Start: 03-30-2024 Anion gap [Moles/Vol] A tato Diglio PA Work Phone: Start: 03-30-2024 Basic metabolic pane l calcium total Luiz Diglio PA Work Phone: Start: 03-30-2024 GLOMERULAR FILTRATIO N RATE, ESTIMATED Luiz Diglio PA Work Phone: Start: 03-29-2024 Blood count hemoglobin Mc Bobby MD Work Phone: Start: 03-29-2024 Radex spine 1 view s pecify level Mc Bobby MD Work Phone: Start: 03-29-2024 End: 03-29-2024 Arthrodesis posterior/posterolateral lumbar Mc Bobby MD Work Phone: Start: 03-29-2024 End: 03-29-2024 Autograft spine surgery local from same incision Mc Bobby MD Work Phone: Start: 03-29-2024 End: 03-29-2024 Arnold facetectomy & foramotomy 1 segment lumbar Mc Bobby MD Work Phone: Start: 03-29-2024 Antibody screen Mc Bobby MD Work Phone: Comment on above: Performed at [facility] [address] [place] [address] Start: 03-29-2024 Blood typing serologic abo Luiz COVINGTON Work Phone: Start: 03-29-2024 Potassium serum plasma/whole blood Mc Bobby MD Work Phone: Start: 02-22-2024 Adult depression scr eening assessment Mago Mcclendon MD Work Phone: Start: 10-07-2023 Adult depression scr eening assessment Roberta Patino PRINTER 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 Work Phone: Start: 07-21-2023 Injection of local anesthetic into sacroiliac joint LINDA Patino Work Phone: Start: 07-16-2023 X-ray of lumbar spin e, four views LINDA Patino Work Phone: Start: 06-25-2023 X-ray of cervical spine LINDA Patino Work Phone: Start: 09-26-2022 Adult depression scr eening assessment Roberta Patino PRINTER 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 Work Phone: Start: 02-04-2022 X-ray of cervical spine LINDA Patino Work Phone: Start: 10-29-2021 X-ray of cervical spine LINDA Patino Work Phone: Start: 02-14-2020 Radiography of cervi lan spine Jared Petty Plan of Treatment Date Care Activity Detail Author Start: 09-29-2032 DTaP,Tdap and Td Vaccines (2 - Td or Tdap) DTaP,Tdap and Td Vaccines (2 - Td or Tdap) [facility] Start: 09-29-2032 DTaP/Tdap/Td vaccine (2 - Td or Tdap) DTaP/Tdap/Td vaccine (2 - Td or Tdap) [facility] Start: 05-05-2025 Tobacco Screening Tobacco Screening [facility] Start: 03-21-2025 Tobacco Screening Tobacco Screening [facility] Start: 02-21-2025 Depression Screening Depression Scre ening [facility] Start: 02-21-2025 Tobacco Screening Tobacco Screening [facility] Start: 10-06-2024 Adult BMI Screening Adult BMI Screen ing [facility] Start: 10-06-2024 Depression Screening Depression Scre ening [facility] Start: 10-06-2024 Fall Risk Screening Fall Risk Screen ing [facility] Start: 10-06-2024 Medicare Annual Well ness Visit Medicare Annual Wellness Visit [facility] Start: 10-06-2024 Tobacco Screening Tobacco Screening [facility] Start: 08-30-2024 Adult BMI Screening Adult BMI Screen ing [facility] Start: 08-30-2024 Tobacco Screening Tobacco Screening [facility] Start: 06-22-2024 End: 06-22-2024 Patient encounter procedure 06/22/2024 3:00 PM EDT Office Visit [facility] [address] [place] [address] [place] [address] Roberta Patino, PRINTER 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 [address] [facility] [address], [place] [address] [facility] Start: 06-15-2024 End: 06-15-2024 Patient encounter procedure 06/15/2024 10:00 AM EDT Office Visit [facility] [address] [place] [address] [place] [address] Xi Wright I, PA [address] [place] [address] [facility] Start: 05-27-2024 End: 05-05-2025 Basic metabolic 2000 panel - Serum or Plasma Basic Metabolic Panel Lab Routine Stage 3a chronic kidney disease ([facility]) Expected: 05/27/2024, Expires: 05/05/2025 [facility] Comment on above: Expected: 05/27/2024 , Expires: 05/05/2025 Start: 05-09-2024 End: 05-05-2025 Basic metabolic 2000 panel - Serum or Plasma Basic Metabolic Panel Lab Routine Stage 3a chronic kidney disease ([facility]) Expected: 05/09/2024, Expires: [facility]05/2025 [facility] Comment on above: Expected: 05/09/2024 , Expires: 05/05/2025 Start: 05-05-2024 End: 05-05-2024 Telemedicine consultation with patient 05/05/2024 11:40 AM EST Telemedicine [facility] [address] [place] [phone] Joel Gutierrez PRINTER 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 [address] [place] [address] [facility] [place] [place] [phone] [facility] Start: 03-23-2024 Annual Wellness Visi t (Medicare) Annual Wellness Visit (Medicare) [facility] Start: 02-26-2024 Adult BMI Screening Adult BMI Screen ing [facility] Start: 02-26-2024 Tobacco Screening Tobacco Screening [facility] Start: 02-22-2024 End: 02-22-2024 Patient encounter procedure 02/22/2024 2:40 PM EST Office Visit [facility] [address] [place] [phone] Roberta Patino, PRINTER 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 605 [facility] Eddie Damon, Ilir [place], [place] [phone] [facility] Start: 11-30-2023 End: 11-30-2023 Patient encounter procedure 11/30/2023 3:20 PM EDT Office Visit [facility] [address] [place] [address] [place] [phone] Roberta Patino, PRINTER 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 [address], [place] [address] [facility] Start: 11-18-2023 Fall Risk Screening Fall Risk Screen ing [facility] Start: 11-08-2023 COVID-19 Vaccine ( season) COVID-19 Vaccine ( season) [facility] Start: 11-08-2023 COVID-19 Vaccine ( season) COVID-19 Vaccine () [facility] Start: 11-08-2023 COVID-19 Vaccine ( season) COVID-19 Vaccine () [facility] Start: 11-08-2023 Influenza vaccination [facility] Start: 10-27-2023 End: 10-27-2023 Clinical Support 10/27/2023 10:00 AM EDT Clinical Support [facility] [address] [place] [phone] Mago Mcclendon MD [address] [facility] [place], [place] [address] [facility] Start: 10-08-2023 Influenza vaccination Flu vaccine (# 1) [facility] Start: 10-07-2023 End: 10-07-2023 Patient encounter procedure 10/07/2023 10:40 AM EDT [facility] [address] [place] [address] [place] [phone] Roberta Patino, PRINTER 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 [address], [facility] [place] [address] [facility] Start: 09-30-2023 Medicare Annual Well ness Visit Medicare Annual Wellness Visit [facility] Start: 09-27-2023 Depression Screening Depression Scre ening [facility] Start: 08-31-2023 End: 08-31-2023 Patient encounter procedure 08/31/2023 2:40 PM EDT [facility] [address] [place] [address] Roberta Patino, PRINTER 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 [address], [place] [address] [facility] Start: 08-31-2023 End: 08-31-2023 Patient encounter procedure 08/31/2023 10:20 AM EDT Office Visit [facility] [address] [place] [address] Roberta Patino, PRINTER 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 [address], [place] [address] [facility] Start: 07-21-2023 [facility] Start: 07-16-2023 X-ray of lumbar spin e, four views XR lumbar spine AP/LAT/FLX/EXT [facility] Start: 06-25-2023 X-ray of cervical spine XR cer v spine AP/LAT/FLX/EXT [facility] Start: 04-14-2023 COVID-19 Vaccine ( season) COVID-19 Vaccine ( season) [facility] Start: 11-24-2022 Administration of varicella zoster vaccine Zoster (Shingles) Vaccine (3 of 3) [facility] Start: 11-24-2022 Shingles vaccine (3 of 3) Shingles vaccine (3 of 3) [facility] Start: 11-07-2022 Influenza vaccination Influenza Vacc ine [facility] Start: 01-19-2015 Respiratory Syncytia l Virus (RSV) or age 60 yrs+ (1 - 1-dose 75+ series) Respiratory Syncytial Virus (RSV) or age 60 yrs+ (1 - 1-dose 75+ series) [facility] Start: 01-19-1958 Adult BMI Follow Up Plan Adult BMI Follow Up Plan [facility] Start: 1952 Depression Screen Depression Screen [facility] End: 04-05-2024 Basic metabolic 2000 panel - Serum or Plasma Basic Metabolic Panel Lab Routine Daily for 1 Weeks starting 03/30/2024 until 04/05/2024, 5 completed [facility] Comment on above: Daily for [address] arting 03/30/2024 until 04/05/2024, 5 completed End: 04-28-2025 CBC W Auto Differential panel - Blood CBC auto differential Lab Routine Stage 3a chronic kidney disease ([facility]) Essential hypertension, benign Edema of both lower legs 1 Occurrences starting 04/28/2024 until 04/28/2025 [employer] Comment on above: 1 Occurrences starti ng 04/28/2024 until 04/28/2025 End: 04-28-2025 Comprehensive metabolic 2000 panel - Serum or Plasma Comprehensive metabolic panel Lab Routine Stage 3a chronic kidney disease ([facility]) Essential hypertension, benign Edema of both lower legs 1 Occurrences starting 04/28/2024 until 04/28/2025 [facility] on [facility]: 1 Occurrences starti ng 04/28/2024 until 04/28/2025 End: 04-04-2024 Hemoglobin and Hematocrit Hemoglobin and Hematocrit Lab Routine Daily for 3 Days starting 04/02/2024 until 04/04/2024, 2 completed [facility] Comment on above: Daily for 3 Days sta rting 04/02/2024 until 04/04/2024, 2 completed End: 04-16-2024 Hemoglobin and Hematocrit Hemoglobin and Hematocrit Lab Routine Post Transfusion Post Transfusion Post Transfustion until discontinued starting 04/02/2024 [facility] Comment on above: Post Transfusion Pos t Transfusion Post Transfustion until discontinued starting 04/02/2024 End: 04-28-2025 Natriuretic peptide B [Mass/volume] in Blood B-type natriuretic peptide Lab Routine Stage 3a chronic kidney disease ([facility]) Essential hypertension, benign Edema of both lower legs Chronic diastolic congestive heart failure ([facility]) 1 Occurrences starting 04/28/2024 until 04/28/2025 [employer] Work Phone: Comment on above: 1 Occurrences starti ng 04/28/2024 until 04/28/2025 Oxygen therapy [[facility]] Initiate Oxygen Therapy Protocol Respiratory Care Routine As Needed until discontinued starting 03/29/2024 [facility] [employer] [facility] Comment on above: As Needed until disc ontinued starting 03/29/2024 Patient Education [facility] Work Phone: Patient referral [facility] Work Phone: PREPARE RBC (CROSSMATCH), 2 Units PREPARE RBC (CROSSMATCH), 2 Units Blood Bank Routine 04/02/2024 8:28 AM EST [facility] Renal function 2000 panel - Serum or Plasma [facility] Spirometry panel Incentive loren metry Respiratory Care Routine Every 2hr while awake until discontinued starting 03/29/2024 [facility] [employer] Comment on above: Every 2hr while awak e until discontinued starting 03/29/[address] [facility] Immunizations Immunization Date Immunization Notes Care Provider [facility] 10-07-2023 Pneumococcal Conjuga te 20-valent Roberta Patino PRINTER 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 Work Phone: [facility] 10-07-2023 Immunization, In Clinic,; Translations: [Drug or medicament (substance)] Roberta Patino PRINTER 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 Work Phone: [facility] 12-12-2022 Covid-19,mrna, Lnp-s , Pf, 50mcg/0.5ml 12+ Roberta Patino PRINTER 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 Work Phone: [facility] 09-29-2022 tetanus toxoid, redu raji diphtheria toxoid, and acellular pertussis vaccine, adsorbed Roberta Patino PRINTER 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 Work Phone: [facility] 09-29-2022 zoster vaccine recombinant Roberta Patino PRINTER 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 Work Phone: [facility] 09-29-2022 zoster vaccine, unspecified formulation Roberta Patino PRINTER 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 Work Phone: [facility] 12-16-2021 Influenza, High-dose Seasonal, Quadrivalent, Preservative Free Fern Cokato CAMOUFLAGE SPECIALIST Work Phone: [facility] 12-16-2021 SARS-COV-2 (COVID-19 ) vaccine, mRNA, spike protein, LNP, bivalent, preservative free, 30 mcg/0.3 mL dose, rhona-sucrose formulation Fern Cokato CAMOUFLAGE SPECIALIST Work Phone: [facility] 12-16-2021 influenza virus vaccine, unspecified formulation Roberta Sukumar PRINTER 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 Work Phone: [facility] 01-16-2021 COVID-19 mRNA-1273 (Moderna) PRINTER 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 Roberta Patino Work Phone: [facility] 12-08-2020 Influenza Vaccine, Quadrivalent, Adjuvanted Roberta Patino PRINTER 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 Work Phone: [facility] 05-07-2020 COVID-19, mRNA, LNP- S, PF, 100mcg/0.5mL Dose Roberta Sukumar PRINTER 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 Work Phone: [facility] 05-04-2020 COVID-19 mRNA-1273 (Moderna) PRINTER 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 Roberta Patino Work Phone: [facility] 04-07-2020 COVID-19, mRNA, LNP- S, PF, 100mcg/0.5mL Dose Roberta Sukumar PRINTER 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 Work Phone: [facility] 04-06-2020 COVID-19 mRNA-1273 (Moderna) PRINTER 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 Roberta Loveuessler Work Phone: [facility] 02-18-2020 influenza, injectabl e, quadrivalent, preservative free Roberta Sukumar PRINTER 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 Work Phone: [facility] 01-25-2019 Influenza, injectabl e, Madin Marion Canine Kidney, quadrivalent with preservative Roberta Sukumar PRINTER 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 Work Phone: [facility] 01-25-2019 pneumococcal polysaccharide vaccine, 23 valent Roberta Sukumar PRINTER 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 Work Phone: [facility] 01-13-2018 pneumococcal conjuga te vaccine, 13 valent Roberta Sukumar PRINTER 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 Work Phone: [facility] 01-08-2018 influenza, injectabl e, quadrivalent, contains preservative Roberta Sukumar PRINTER 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 Work Phone: [facility] 03-09-2014 zoster vaccine, live Roberta Sukumar PRINTER 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 Work Phone: [facility] Payers Date Payer Category [facility] [id number] 2016 [facility] Solo SINGH [id number] 2016 Unknown FRANCISCO LEOS ANDREA [id number] 2016-Present [phone] [address] [place] [address] [id number] 2016 Unknown [id number] 2005 Medicare [id number] 2005 Medicare [id number] 1940 Unknown [id number] [id number]. 2.93 1940 Unknown [id number] 2.16.840.1.880888.3.579. 2.128 1940 Unknown [id number] 2.16.840.1.147755.3.579. 2.1286 1940 Unknown [id number] 2.16.840.1.364198.3.579. 2.1286 1940 Unknown [id number] 2.16.840.1.481634.3.579. 2.128 1940 Unknown [id number] 2.16.840.1.927621.3.579. 2.128 1940 Unknown [id number] 2.16.840.1.407378.3.579. 2.128 1940 Unknown [id number] 2.16.840.1.545311.3.579. 2.128 1940 Unknown [id number] 2.16840.1.567141.3.579. 2.1286 1940 Unknown [id number] 2.16.840.1.944918.3.579. 2.1286 1940 Unknown [id number] 2.16.840.1.960129.3.579. 2.1286 1940 Unknown [id number] 2.16.840.1.606966.3.579. 2.128 1940 Unknown [id number] 2.16.840.1.090519.3.579. 2.1286 1940 Unknown [id number] 2.16.840.1.010969.3.579. 2.1286 Medicare [id number] Self-pay Self Pay [id number] Social History Date Type Detail Facility Start: 03-12-2020 End: 08-31-2023 Tobacco smoking status [facility] Ex-smoker (finding) [facility] Start: 1940 Sex Assigned At Male [facility] Start: 10-23-2020 End: 05-05-2024 Sex Assigned At [facility] Start: 07-01-2021 End: 11-08-2022 Tobacco smoking status [facility] Never smoked tobacco (finding) [facility] End: 03-09-1999 History of tobacco use Current smoker [facility] End: 03-09-1999 History of tobacco use Cigarette Smoker [facility] Start: 07-09-2022 End: 08-31-2023 Tobacco use and exposure Smokeless tobacco non-user [facility] Start: 02-22-2024 End: 05-05-2024 Alcoholic beverage intake Current non-drinker of alcohol (finding) [facility] Start: 10-23-2020 End: 05-05-2024 History of Social function [facility] Do you belong to any clubs or organizations such as presybeterian groups, unions, fraternal or athletic groups, or school groups? No [facility] Are you now , , , , never or living with a partner? [facility] How often to you hav e a drink containing alcohol? Monthly or less [facility] How many standard dr inks containing alcohol do you have on a typical day? Patient declined [facility] How often do you hav e 6 or more drinks on 1 occasion? Never [facility] Do you feel stress - tense, restless, nervous, or anxious, or unable to sleep at night because your mind is troubled all the time - these days [OSQ] Not at all [facility] Start: 10-23-2020 Education 16 [facility] Start: 1940 Sex assigned at Not on file P [facility] Start: 10-12-2014 Sex Male (finding) [facility] Start: 12-02-2022 End: 03-30-2024 Alcoholic beverage intake [facility] (finding) [facility]We[facility] worried ministerio (my/our) food would run out before (I/we) got money to buy more. Never true [employer] [facility] Medical Equipment Procedure Code Equipment Code Equipment Origin al Text Equipment Identifier Dates Decompression, spine, cervical, posterior approach OSTEOAMP GRANULES 10CC FDA Start: 03-19-2020 Decompression, spine, cervical, posterior approach Bone-screw internal spinal fixation system, non-sterile ()[id number] FDA Start: 03-19-2020 Decompression, spine, cervical, posterior approach Bone-screw internal spinal fixation system, non-sterile ()[id number] FDA Start: 03-19-2020 Decompression, spine, cervical, posterior approach Bone-screw internal spinal fixation system, non-sterile ()[id number] FDA Start: 03-19-2020 Decompression, spine, cervical, posterior approach Bone-screw internal spinal fixation system, non-sterile ()[id number] FDA Start: 03-19-2020 Decompression, spine, cervical, posterior approach Bone-screw internal spinal fixation system, non-sterile ()[id number] FDA Start: 03-19-2020 Decompression, spine, cervical, posterior approach Bone-screw internal spinal fixation system, non-sterile ()[id number] FDA Start: 03-19-2020 Decompression, spine, cervical, posterior approach Bone-screw internal spinal fixation system, non-sterile ()[id number] FDA Start: 03-19-2020 Decompression, spine, cervical, posterior approach CANCELLOUS 15CC CRUSHED FDA Start: 07-01-2021 Decompression, spine, cervical, posterior approach Spinal fusion graft kit ([id number] FDA Start: 07-01-2021 Decompression, spine, cervical, posterior approach Bone-screw internal spinal fixation system, non-sterile ()[id number] FDA Start: 07-01-2021 Decompression, spine, cervical, posterior approach Bone-screw internal spinal fixation system, non-sterile ()[id number] FDA Start: 07-01-2021 Decompression, spine, cervical, posterior approach Bone-screw internal spinal fixation system, non-sterile ()[id number] FDA Start: 07-01-2021 Decompression, spine, cervical, posterior approach Bone-screw internal spinal fixation system, non-sterile ()[id number] FDA Start: 07-01-2021 Decompression, spine, cervical, posterior [...] approach CANCELLOUS 15CC CRUSHED FDA Start: 07-01-2021 Cage Spnl 6 Deg [id number] Mm [facility] - [id number] FDA Start: 03-29-2024 Set Screw 5.5-6. 0 - [id number] Start: 03-29-2024 Screw Poly Solid 7.5x55 - [id number] Start: 03-29-2024 Screw Poly Solid 7.5x50 - [id number] Start: 03-29-2024 Driss Ti Prebent 5.5x110 - [id number] Start: 03-29-2024 Driss Ti Prebent 5.5x120 - [id number] Start: 03-29-2024 Crosslink Spnl V ar Lg Streamline Tl - [id number] Start: 03-29-2024 Goals Date Patient Goal Desired Activity /State Clinical Notes 12-13-2020 to 05-05-2024 Joel Gutierrez, PRINTER 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 - 05/05/2024 11:40 AM EST Note Date & Type Note Facility 05-05-2024 History of Present illness Narrative Subjective Patient ID: Barry Mcmillan is a 84 y.o. male. Telephone Visit via Real-time Audio-only Provider Location: Login Department Patient Location: Patient's home Telephone Visit Consent Statement: I discussed risks, benefits, and alternatives of a real-time synchronous audio consultation with the patient (and any accompanying persons) including the risks that the patient's personal health details and medical records will be discussed over real-time, synchronous, audio-only telecommunication technology, and that there are some limitations compared to ajry-vw-gjas evaluations. We elected to proceed. Total time spent on the phone with the patient: 10 minutes. JEWEL Barney presents via telephone visit to discuss concern for kidney function. He had back surgery, L2-S1 bilateral laminectomy, partial medial facetectomies and foraminotomies of L2, L3, L4, L5, and S1 nerve roots along with total facetectomies at L3-4 on the right, L4-5 on the left and L5-S1 bilaterally for complete decompression of the L3 on the right, left L4 and bilateral L5 nerve roots 2. L2-S1 posterior spinal fusion. 3. L2-S1 posterior spinal instrumentation, Cortera, Xtant instrumentation. 4. Use of local autograft bone 5. L5-S1 transforaminal lumbar interbody fusion, anterior posterior fusion using a single posterior approach 6. 10 x 26 x 10-mm Fortilink interbody cage, completed with Dr. Saint Tobar at [facility] in [place], [place] on March 29, 2024. He was then discharged to [facility] on 04/03/2024. He reports he was only in the detention for a few days and has been discharged to home with [facility]. [facility] is currently coming into his home twice weekly. Barney reports he is concerned about his kidney function as he has history of having his kidneys crash after having surgery in the past. He does have follow up with Urology however that is not scheduled until June 15. He is concerned about his kidneys, because he reports they were elevated while he was in the detention. I did review chart and saw that creatinine was up to 2.0 on 04/21. However repeat labs were placed by PCP and were completed on 04/29/2024 creatinine was 1.62, BUN slightly elevated at 28, GFR 42. Barney simply would just like his kidney function to be monitored until he can get in with the specialists. The following portions of the patient's history were reviewed and updated as appropriate: allergies, current medications, past family history, past medical history, past social history, past surgical history, problem list, and medication reconciliation was completed including current medication and post discharge medication. Review of Systems Constitutional: Negative for chills, diaphoresis, fatigue, fever and unexpected weight change. HENT: Negative. Eyes: Negative. Respiratory: Negative. Negative for cough, chest tightness, shortness of breath and wheezing. Cardiovascular: Negative for chest pain, palpitations and leg swelling. Gastrointestinal: Negative for abdominal pain and blood in stool. Endocrine: Negative. Genitourinary: Negative for dysuria and hematuria. Musculoskeletal: Negative for arthralgias and myalgias. Skin: Negative. Neurological: Negative for dizziness, syncope, weakness and light-headedness. Psychiatric/Behavioral: Negative for self-injury and suicidal ideas. Objective Physical Exam Constitutional: Appearance: Normal appearance. Comments: Telephone visit. He is interacting and answering appropriately. Neurological: Mental Status: He is alert and oriented to person, place, and time. Psychiatric: Mood and Affect: Mood normal. Behavior: Behavior normal. Assessment/Plan Lab that was completed on 04/29/2024 was reviewed with patient. Repeat lab ordered for next week. Discussed with patient we can continue to monitor labs, repeat ordered place for 2 weeks after. Ensure to keep follow up with specialists. Keep scheduled appointment with PCP. Barney was seen today for concerns . Diagnoses and all orders for this visit: Stage 3a chronic kidney disease ([facility]) - Basic Metabolic Panel; Future - Basic Metabolic Panel; Future SWAPNA Ann 05/05/24 1147 documented in this encounter [facility] 05-05-2024 Evaluation note Diagnosis Stage 3a chronic kidney disease ([facility])- Primary documented in this encounter [facility]02-26-2025 History of Present illness Narrative* Sugar Balderas - 05/04/2024 10:38 AM EST Patient has called this morning and continues to be very concerned regarding his kidney function despite reassurance that surgery is hard on the kidneys and can take some time to recover. He has stated that he feels as if no one is taking his health as seriously as he is. Would there be any chance of scheduling him for a telehealth appt this week so that a provider can review and discuss with him to kind of put him at ease? Please advise. Thanks, Sugar Balderas RN [facility] Chronic Care Nurse Warehouse Worker [phone] [facility] Miscellaneous Notes* Telephone Encounter - SWAPNA Ann - 05/04/2024 10:38 AM EST Can we get this patient scheduled please. * Telephone Encounter - Negra Woodall CMA - 05/04/2024 10:38 AM EST Called and scheduled patient for a phone call with provider 05/05 [facility] Telephone encounter Note* Telephone Encounter - SWAPNA Ann - 05/04/2024 10:38 AM EST Can we get this patient scheduled please. [facility]02-26-2025 Telephone encounter Note* Telephone Encounter - Negra Woodall CMA - 05/04/2024 10:38 AM EST Called and scheduled patient for a phone call with provider 05/05 [facility] [id number] Evaluation note* Diagnosis Stage 3a chronic kidney disease ([facility])- Primary Essential hypertension, benign documented in this encounter [facility]02-21-2025 Miscellaneous Notes* Telephone Encounter - Negra Woodall CMA - 04/29/2024 10:35 AM EST Called and informed patient of lab orders placed and sent to [facility]. No answer, left voicemail. documented in this [facility]High[facility]25 Telephone encounter Note* Telephone Encounter - Negra Woodall CMA - 04/29/2024 10:35 AM EST Called and informed patient of lab orders placed and sent to [facility]. No answer, left voicemail. [facility] [id number] History of Present illness Narrative* Sugar Balderas - 04/27/2024 9:19 AM EST I followed up with [facility] and he is currently on service with them. I did confirm that they can do at home blood draws. Lab orders will need to be faxed to [phone] to be completed. * Sugar Balderas - 04/27/2024 9:19 AM EST I called Barney to follow up and he is not very happy at this time. He did contact his surgeons office and they sent out a slabbing machine operator to collect his blood work while I was on the phone with him. Oswaldo GROVE * Sugar Balderas - 04/27/2024 9:19 AM EST His home health provider, [facility], have verified that they can draw his labs as long as the orders are entered and faxed to them. documented in this [facility]High[facility]02-[facility]-2025 Miscellaneous Notes* Telephone Encounter - Cande Phipps - 04/27/2024 9:19 AM EST Patient calling with concerns over increased edema in his ankles / legs. Patient had lumbar surgery03/30/2024 and states he is not supposed to get up and move around at this time, but he is noticing the increased edema. He states that [facility] was out to his house the other day, but he felt that they did not do anything at that time. He wants to know what his options are or what he can do. He is wondering if someone can go to his home and draw his blood. * Telephone Encounter - SWAPNA Day - 04/27/2024 9:19 AM EST Can you look into this please. I believe the only way to have labs drawn at home, is through home care, which he does not have, but sounds homebound? * Telephone Encounter - Cande Phipps - 04/27/2024 9:19 AM EST Patient calling back appearing to be confused. He states that someone came out to the house to drawhis blood, but he was not fond of the communication. Patient cut back and altered some of his medications, and that it seemed to help his edema. He is asking that he be referred to Urology. I lethim know that PCP did place referral back in March. I provided the office information such as phone number and address for him to contact Urology. He is asking if Urology would come out to see him and draw his blood. I let the patient know that I did not believe that is a service they office. He then asked if our office would go out to his house to draw his blood, I repeated that that is not something that we do. I assured him I would escalate his concerns to PCP and Sugar for further discussion. * Telephone Encounter - Cande Phipps - 04/27/2024 9:19 AM EST Attempted to contact patient to let him know, he did not answer. Left voicemail. * Telephone Encounter - SWAPNA Day - 04/27/2024 9:19 AM EST Please fax labs to home care to draw documented in this [facility]High[facility] Telephone encounter Note* Telephone Encounter - Cande Phipps - 04/27/2024 9:19 AM EST Patient calling with concerns over increased edema in his ankles / legs. Patient had lumbar surgery03/30/2024 and states he is not supposed to get up and move around at this time, but he is noticing the increased edema. He states that [facility] was out to his house the other day, but he felt that they did not do anything at that time. He wants to know what his options are or what he can do. He is wondering if someone can go to his home and draw his blood. [facility]02-19-2025 Telephone encounter Note* Telephone Encounter - SWAPNA Day - 04/27/2024 9:19 AM EST Can you look into this please. I believe the only way to have labs drawn at home, is through home care, which he does not have, but sounds homebound? [facility]02-19-2025 Telephone encounter Note* Telephone Encounter - Cande Trang Phipps - 04/27/2024 9:19 AM EST Patient calling back appearing to be confused. He states that someone came out to the house to drawhis blood, but he was not fond of the communication. Patient cut back and altered some of his medications, and that it seemed to help his edema. He is asking that he be referred to Urology. I lethim know that PCP did place referral back in March. I provided the office information such as phone number and address for him to contact Urology. He is asking if Urology would come out to see him and draw his blood. I let the patient know that I did not believe that is a service they office. He then asked if our office would go out to his house to draw his blood, I repeated that that is not something that we do. I assured him I would escalate his concerns to PCP and Sugar for further discussion. [facility]02-19-2025 Telephone encounter Note* Telephone Encounter - [facility] Trang Phipps - 04/27/2024 9:19 AM EST Attempted to contact patient to let him know, he did not answer. Left voicemail. [facility]02-19-2025 Telephone encounter Note* Telephone Encounter - SWAPNA Day - 04/27/2024 9:19 AM EST Please fax labs to home care to draw [facility]02-14-2025 Telephone encounter Note* Telephone Encounter - Dom Suarez NP - 04/22/2024 7:17 PM EST Requested Prescriptions Signed Prescriptions Disp Refills oxyCODONE (Roxicodone) 5 MG immediate release tablet 48 tablet 0 Sig: Take 1 tablet (5 mg) by mouth every 6 (six) hours if needed for severe pain for up to 12 days Authorizing Provider: DOM SUAREZ This pt is discharging from [facility]. He will follow up with his pcp for continued treatment. [id number] Miscellaneous Notes* Telephone Encounter - Dom Suarez NP - 04/22/2024 7:17 PM EST Requested Prescriptions Signed Prescriptions Disp Refills oxyCODONE (Roxicodone) 5 MG immediate release tablet 48 tablet 0 Sig: Take 1 tablet (5 mg) by mouth every 6 (six) hours if needed for severe pain for up to 12 days Authorizing Provider: DOM SUAREZ This pt is discharging from [facility]. He will follow up with his pcp for continued treatment. documented in this encounterKindred [id number] Telephone encounter Note* Telephone Encounter - Fern Puentes NP - 04/22/2024 2:59 PM EST Unable to fulfill refill due to technical issues. Fern uPentes NP 04/22/24 2:59 PM [facility] Work Phone: [phone]) 564-944702-14-2025 Miscellaneous Notes* Telephone Encounter - Fern Puentes NP - 04/22/2024 2:59 PM EST Unable to fulfill refill due to technical issues. Fern Puentes NP 04/22/24 2:59 PM documented in this [facility]01-26-2025 History of Present illness Narrative* Natalya Woodruff LPN - 04/03/2024 3:46 PM EST Mary Swift given patient packet for transport to SNF. Report called and given to Nurse Anisa.Patients family is taking patients belongings to SNF. * Herb Ch MD - 04/03/2024 2:11 PM EST INTERNAL MEDICINE Progress Note 04/03/2024 2:11 PM Subjective: Admit Date: 03/29/2024 PCP: Mago Mcclendon ND Interval History: Stable post prbc No new c/o +BM, No ROTHMAN Objective: Vitals: BP 137/64 Pulse 94 Temp 98.2 F (36.8 C) (Oral) Resp 18 Ht 1.822 m (5' 11.75 ) Wt 92.1 kg (203 lb) SpO2 97% BMI 27.72 kg/m General appearance: alert and cooperative with exam HEENT: atraumatic Neck: no adenopathy, no carotid bruit, and no JVD Lungs: clear to auscultation bilaterally Heart: S1, S2 normal Abdomen: normal findings: bowel sounds normal, soft, non-tender, and symmetric and abnormal findings: distended Extremities: no edema, redness or tenderness in the calves or thighs Neurologic: Alert, oriented, thought content appropriate Medications: Scheduled Meds: bisacodyl 10 mg Oral Daily sennosides-docusate sodium 2 tablet Oral BID naloxegol 12.5 mg Oral QAM AC famotidine 20 mg Oral Daily amLODIPine 5 mg Oral Daily finasteride 5 mg Oral Daily losartan 50 mg Oral Daily miconazole Topical BID tamsulosin 0.8 mg Oral Daily triamcinolone Topical BID triamterene-hydroCHLOROthiazide 1 tablet Oral Daily sodium chloride flush 5-40 mL IntraVENous 2 times per day polyethylene glycol 17 g Oral Daily Continuous Infusions: sodium chloride Stopped (04/03/24 1208) sodium chloride Stopped (04/03/24 1207) Lab Results: CBC: Recent Labs 04/02/24 0703 04/03/24 0704 04/03/24 1226 HGB 6.9* 9.7* 9.5* BMP: Recent Labs 04/01/24 0529 04/02/24 0703 04/03/24 0704 NA 136 141 140 K 4.3 3.7 3.8 CL 104 106 104 CO2 23 23 23 BUN 36* 34* 28* CREATININE 1.6* 1.4* 1.2 GLUCOSE 109* 117* 101 Assessment and Plan: L2-S1 degenerative disc disease / L2-S1 lumbar stenosis with radiculopathy Lumbar degenerative scoliosis S/p L2-S1 jen laminectomy and PSF HTN CKD Anemia post op +anemia of chronic kidney dx -With an acute component -Transfuse prbc x1 Cont post op care Bowel regimen, fleet enema prn PT/OT Stable for dc to SNF. Herb Ch MD, MD * Luiz Nice PA - 04/03/2024 9:35 AM EST Department of Orthopedic Surgery Spine Service Attending Progress Note Subjective: POD#5 patient c/o surgical site pain, back is bothersome this am. No headaches. No leg pain +BM. Vitals VITALS: BP 137/64 Pulse 94 Temp 98.2 F (36.8 C) (Oral) Resp 18 Ht 1.822 m (5' 11.75 ) Wt 92.1 kg (203 lb) SpO2 97% BMI 27.72 kg/m 24HR INTAKE/OUTPUT: Intake/Output Summary (Last 24 hours) at 04/03/2024 0935 Last data filed at 04/03/2024 0329 Gross per 24 hour Intake 2269 ml Output 325 ml Net 1944 ml URINARY CATHETER OUTPUT (Lundberg): [REMOVED] Urinary Catheter 03/29/24-Output (mL): 200 mL DRAIN/TUBE OUTPUT: Closed/Suction Drain Midline Back Accordion-Output (ml): 70 ml Closed/Suction Drain Midline Back Accordion-Output (ml): 35 ml PHYSICAL EXAM: Orientation: alert and oriented to person, place and time Incision: dressing in place, clean, dry, intact Lower Extremity Motor : quadriceps, extensor hallucis longus, dorsiflexion, plantarflexion 5/5 bilaterally Lower Extremity Sensory: Intact L1-S1 Flatus: positive LABS: HgB: Lab Results Component Value Date/Time HGB 9.7 04/03/2024 07:04 AM Hemoglobin/Hematocrit: Lab Results Component Value Date/Time HGB 9.7 04/03/2024 07:04 AM HCT 29.6 04/03/2024 07:04 AM BMP: Lab Results Component Value Date/Time NA 140 04/03/2024 07:04 AM K 3.8 04/03/2024 07:04 AM CL 104 04/03/2024 07:04 AM CO2 23 04/03/2024 07:04 AM BUN 28 04/03/2024 07:04 AM CREATININE 1.2 04/03/2024 07:04 AM CALCIUM 8.6 04/03/2024 07:04 AM LABGLOM 60 04/03/2024 07:04 AM GLUCOSE 101 04/03/2024 07:04 AM ASSESSMENT AND PLAN: Post operative day 5 status post L2-S1 decompression and fusion 1: Monitor labs and drain output 2: Activity Level: As tolerated. PT/OT, back brace when ambulating. If patient develops a headache,have him lay flat 3: Pain Control: Good 4: Discharge Planning: SNF today 5: Acute blood loss anemia s/p surgery, hgb improved to 9.7 s/p 2 units PRBC ADRIA Sims * Herb Ch MD - 04/02/2024 1:55 PM EST INTERNAL MEDICINE Progress Note 04/02/2024 1:55 PM Subjective: Admit Date: 03/29/2024 PCP: Mago Mcclendon ND Interval History: Drop in H/H +BM, non bloody No ROTHMAN Objective: Vitals: BP 116/80 Pulse 94 Temp 98.8 F (37.1 C) (Oral) Resp 16 Comment: lungs clear Ht 1.822 m (5' 11.75 ) Wt 92.1 kg (203 lb) SpO2 100% BMI 27.72 kg/m General appearance: alert and cooperative with exam HEENT: atraumatic Neck: no adenopathy, no carotid bruit, and no JVD Lungs: clear to auscultation bilaterally Heart: S1, S2 normal Abdomen: normal findings: bowel sounds normal, soft, non-tender, and symmetric and abnormal findings: distended Extremities: no edema, redness or tenderness in the calves or thighs Neurologic: Alert, oriented, thought content appropriate Medications: Scheduled Meds: bisacodyl 10 mg Oral Daily sennosides-docusate sodium 2 tablet Oral BID naloxegol 12.5 mg Oral QAM AC famotidine 20 mg Oral Daily amLODIPine 5 mg Oral Daily finasteride 5 mg Oral Daily losartan 50 mg Oral Daily miconazole Topical BID tamsulosin 0.8 mg Oral Daily triamcinolone Topical BID triamterene-hydroCHLOROthiazide 1 tablet Oral Daily sodium chloride flush 5-40 mL IntraVENous 2 times per day polyethylene glycol 17 g Oral Daily Continuous Infusions: sodium chloride sodium chloride Lab Results: CBC: Recent Labs 04/01/24 0529 04/01/24 1345 04/02/24 0703 HGB 7.2* 7.3* 6.9* BMP: Recent Labs 03/31/24 0432 04/01/24 0529 04/02/24 0703 NA 135 136 141 K 4.3 4.3 3.7 CL 104 104 106 CO2 21* 23 23 BUN 40* 36* 34* CREATININE 1.7* 1.6* 1.4* GLUCOSE 106 109* 117* Assessment and Plan: L2-S1 degenerative disc disease / L2-S1 lumbar stenosis with radiculopathy Lumbar degenerative scoliosis S/p L2-S1 jen laminectomy and PSF HTN CKD Anemia post op +anemia of chronic kidney dx -With an acute component -Transfuse prbc x1 Cont post op care Bowel regimen, fleet enema prn PT/OT Am labs. Herb Ch MD, * Luiz Nice PA - 04/02/2024 7:56 AM EST Department of Orthopedic Surgery Spine Service Attending Progress Note Subjective: POD#4 SNF tomorrow C/o back pain, denies leg pain or N/T but feels legs are weak. +BM Denies headache Vitals VITALS: BP 128/68 Pulse 100 Temp 98.4 F (36.9 C) (Oral) Resp 16 Ht 1.822 m (5' 11.75 ) Wt92.1 kg (203 lb) SpO2 96% BMI 27.72 kg/m 24HR INTAKE/OUTPUT: Intake/Output Summary (Last 24 hours) at 04/02/2024 0756 Last data filed at 04/02/2024 0646 Gross per 24 hour Intake 240 ml Output 231 ml Net 9 ml URINARY CATHETER OUTPUT (Lundberg): [REMOVED] Urinary Catheter 03/29/24-Output (mL): 200 mL DRAIN/TUBE OUTPUT: Closed/Suction Drain Midline Back Accordion-Output (ml): 30 ml Closed/Suction Drain Midline Back Accordion-Output (ml): 30 ml PHYSICAL EXAM: Orientation: alert and oriented to person, place and time Incision: dressing in place, clean, dry, intact Lower Extremity Motor : quadriceps, extensor hallucis longus, dorsiflexion, plantarflexion 5/5 bilaterally Lower Extremity Sensory: Intact L1-S1 Flatus: positive LABS: HgB: Lab Results Component Value Date/Time HGB 7.3 04/01/2024 01:45 PM Hemoglobin/Hematocrit: Lab Results Component Value Date/Time HGB 7.3 04/01/2024 01:45 PM HCT 22.6 04/01/2024 01:45 PM BMP: Lab Results Component Value Date/Time NA 136 04/01/2024 05:29 AM K 4.3 04/01/2024 05:29 AM CL 104 04/01/2024 05:29 AM CO2 23 04/01/2024 05:29 AM BUN 36 04/01/2024 05:29 AM CREATININE 1.6 04/01/2024 05:29 AM CALCIUM 8.4 04/01/2024 05:29 AM LABGLOM 42 04/01/2024 05:29 AM GLUCOSE 109 04/01/2024 05:29 AM ASSESSMENT AND PLAN: Post operative day 4 status post L2-S1 decompression and fusion 1: Monitor labs and drain output 2: Activity Level: As tolerated. PT/OT, back brace when ambulating. If patient develops a headache,have him lay flat 3: Pain Control: Good 4: Discharge Planning: Pending - planning SNF - plan for tomorrow. 5: Acute blood loss anemia s/p surgery, hgb 7.3 - AM labs pending ADRIA Sims * Herb Ch MD - 04/01/2024 3:13 PM EST INTERNAL MEDICINE Progress Note 04/01/2024 3:13 PM Subjective: Admit Date: 03/29/2024 PCP: Mago Mcclendon ND Interval History: Passing flatus, no BM No ROTHMAN Objective: Vitals: BP (!) 92/56 Pulse (!) 112 Comment: complaining about everything, coffee, not being able to open his milk.... Temp 98.6 F (37 C) (Oral) Resp 18 Ht 1.822 m (5' 11.75 ) Wt 92.1 kg (203 lb) SpO2 94% BMI 27.72 kg/m General appearance: alert and cooperative with exam HEENT: atraumatic Neck: no adenopathy, no carotid bruit, and no JVD Lungs: clear to auscultation bilaterally Heart: S1, S2 normal Abdomen: normal findings: bowel sounds normal, soft, non-tender, and symmetric and abnormal findings: distended Extremities: no edema, redness or tenderness in the calves or thighs Neurologic: Alert, oriented, thought content appropriate Medications: Scheduled Meds: bisacodyl 10 mg Oral Daily sennosides-docusate sodium 2 tablet Oral BID naloxegol 12.5 mg Oral QAM AC famotidine 20 mg Oral Daily amLODIPine 5 mg Oral Daily finasteride 5 mg Oral Daily losartan 50 mg Oral Daily miconazole Topical BID tamsulosin 0.8 mg Oral Daily triamcinolone Topical BID triamterene-hydroCHLOROthiazide 1 tablet Oral Daily sodium chloride flush 5-40 mL IntraVENous 2 times per day polyethylene glycol 17 g Oral Daily Continuous Infusions: sodium chloride 125 mL/hr at 03/29/24 2319 sodium chloride Lab Results: CBC: Recent Labs 03/31/24 2325 04/01/24 0529 04/01/24 1345 HGB 7.4* 7.2* 7.3* BMP: Recent Labs 03/30/24 0514 03/31/24 0432 04/01/24 0529 NA 139 135 136 K 4.9 4.3 4.3 CL 108 104 104 CO2 21* 21* 23 BUN 25* 40* 36* CREATININE 1.4* 1.7* 1.6* GLUCOSE 185* 106 109* Assessment and Plan: L2-S1 degenerative disc disease / L2-S1 lumbar stenosis with radiculopathy Lumbar degenerative scoliosis S/p L2-S1 jen laminectomy and PSF HTN CKD Anemia post op +anemia of chronic kidney dx Cont post op care Bowel regimen, fleet enema prn PT/OT Cont care. Am labs. Herb Ch MD, * Lore Champagne RN - 04/01/2024 1:50 PM EST PT woke patient, he requested pain medications and declined PT this afternoon. When I went to medicate him he was asleep again. Will continue to monitor pt for needs. * Lore Champagne RN - 04/01/2024 1:45 PM EST Rounded on patient to check for needs. Resting in bed eyes closed. * Yamile Cohen OT - 04/01/2024 9:18 AM EST [facility] ORTHOPEDICS 7 Occupational Therapy Daily Note Discharge Recommendations: Continue to assess pending progress and Subacute/chcf facility Equipment Recommendations: No Rolling walker, LHAE?? Time In: 0854 Time Out: 917 Timed Code Treatment Minutes: 24 Minutes Minutes: 24 Date: 04/01/2024 Patient Name: Barry Mcmillan, Gender: male Room: [facility]26/026-A : 1940 (84 y.o.) Referring Practitioner: Luiz Nice PA Diagnosis: Lumbar stenosis with neurogenic claudication Additional Pertinent Hx: Per EMR, The patient is an 84-year-old male with complaints of progressive low back pain. Patient has a chronic history of low back pain that alex progressively worsened over the last 4 years. He also repots pain down the bilateral lateral legs. Current VAS score of 7 out of 10. Percentagewise 90% of patient's pain is in his back and 10% into the legs. Patient remains very active but his pain is limiting him with activities of daily living now. He has tried multiple rounds of physical therapy, [facility], epidural injections, lumbar medial branch blocks, and medications without relief of his pain and symptoms. Standing and walking aggravates his pain. Sitting helps relieve his pain. Patient is a non-smoker. Restrictions/Precautions: Restrictions/Precautions: Fall Risk, General Precautions Required Braces or Orthoses Spinal: Lumbar Corset Position Activity Restriction Spinal Precautions: No Bending, No Lifting, No Twisting Other Position/Activity Restrictions: Prefers Barney ; Monitor BP Social/Functional History: Lives With: Alone Type of Home: House Home Layout: Two level Home Access: Stairs to enter with rails Entrance Stairs - Number of Steps: 14 ILIR Home Equipment: Rollator Bathroom Shower/Tub: Walk-in shower Bathroom Toilet: Handicap height Bathroom Accessibility: Accessible Prior Level of Assist for ADLs: Independent Prior Level of Assist for Homemaking: Independent Homemaking Responsibilities: Yes Prior Level of Assist for Transfers: Independent Prior Level of Assist for Ambulation: Independent household ambulator, with or without device Active Assembler Cards And Announcements: Yes SUBJECTIVE: ELY mcnealed OT session. Upon arrival patient was resting in recliner. Pt is eager to get back to bed d/t back pain. PAIN: 10: Back Vitals: Vitals not assessed per clinical judgement, see nursing flowsheet COGNITION: Decreased Insight, Decreased Problem Solving, and Decreased Safety Awareness ADL: Footwear Management: Maximum Assistance. . IADL: Not Tested BALANCE: Sitting Balance: Stand By Assistance. Standing Balance: Contact Guard Assistance. With BUE on walker. BED MOBILITY: Sit to Supine: Minimal Assistance, X 1, with head of bed flat, with rail Scooting: Minimal Assistance TRANSFERS: Sit to Stand: Contact Guard Assistance, X 1, with increased time for completion, cues for hand placement. Stand to Sit: Contact Guard Assistance, X 1, with increased time for completion, cues for hand placement. FUNCTIONAL MOBILITY: Assistive Device: Rolling Walker Assist Level: Contact Guard Assistance. Distance: Recliner to EOB. Slow pace, No LOB. Functional Outcome Measures: AM-PAC Inpatient Daily Activity Raw Score: 14 Modified [place]: Current Functional Status: Not Applicable ASSESSMENT: Activity Tolerance: Patient tolerance of treatment: Good treatment tolerance Plan: Times Per Week: 6x Times Per Day: Once a day Current Treatment Recommendations: ROM, Balance training, Functional mobility training, Endurance training, Patient/Caregiver education & training, Equipment evaluation, education, & procurement, Self-Care / ADL, Home management training, Safety education & training Education: Learners: Patient Role of OT, Plan of Care, ADL's, Importance of Increasing Activity, and Assistive Device Safety Goals Short Term Goals Time Frame for Short Term Goals: Until discharge Short Term Goal 1: Pt will complete dynamic standing task x 5 minutes with 0 vcs for safety and Stand By Assist to increase indep and endurance with all sinkside grooming. Short Term Goal 2: Pt will complete functional mobility to/from BR and HH distances with Stand By Assist to increase indep with all toileting. Short Term Goal 3: Pt will complete LB dressing with Stand By Assist and LHAE PRN to increase indepwithin home environment. Short Term Goal 4: Pt will complete showering/bathing task with Stand By Assist to increase indep within home environment. Additional Goals?: No Curriculum Coach Goals Time Frame for Longterm Goals : No LTGs d/t short estimated length of stay. Following session, patient left in safe position with all fall risk precautions in place. * Luiz Nice PA - 04/01/2024 6:29 AM EST Department of Orthopedic Surgery Spine Service Attending Progress Note Subjective: POD#3 planning SNF Ambulating in room, c/o surgical site pain. Denies leg pain or N/T. No issues voiding No BM Denies headaches Vitals VITALS: BP 118/60 Pulse (!) 101 Temp 98.1 F (36.7 C) (Oral) Resp 18 Ht 1.822 m (5' 11.75 ) Wt 92.1 kg (203 lb) SpO2 96% BMI 27.72 kg/m 24HR INTAKE/OUTPUT: Intake/Output Summary (Last 24 hours) at 04/01/2024 0629 Last data filed at 04/01/2024 0347 Gross per 24 hour Intake 715 ml Output 525 ml Net 190 ml URINARY CATHETER OUTPUT (Lundberg): [REMOVED] Urinary Catheter 03/29/24-Output (mL): 200 mL DRAIN/TUBE OUTPUT: Closed/Suction Drain Midline Back Accordion-Output (ml): 150 ml Closed/Suction Drain Midline Back Accordion-Output (ml): 0 ml PHYSICAL EXAM: Orientation: alert and oriented to person, place and time Incision: dressing in place, clean, dry, intact Lower Extremity Motor : quadriceps, extensor hallucis longus, dorsiflexion, plantarflexion 5/5 bilaterally Lower Extremity Sensory: Intact L1-S1 Flatus: positive LABS: HgB: Lab Results Component Value Date/Time HGB 7.2 04/01/2024 05:29 AM Hemoglobin/Hematocrit: Lab Results Component Value Date/Time HGB 7.2 04/01/2024 05:29 AM HCT 22.0 04/01/2024 05:29 AM BMP: Lab Results Component Value Date/Time NA 136 04/01/2024 05:29 AM K 4.3 04/01/2024 05:29 AM CL 104 04/01/2024 05:29 AM CO2 23 04/01/2024 05:29 AM BUN 36 04/01/2024 05:29 AM CREATININE 1.6 04/01/2024 05:29 AM CALCIUM 8.4 04/01/2024 05:29 AM LABGLOM 42 04/01/2024 05:29 AM GLUCOSE 109 04/01/2024 05:29 AM ASSESSMENT AND PLAN: Post operative day 3 status post L2-S1 decompression and fusion 1: Monitor labs and drain output 2: Activity Level: As tolerated. PT/OT, back brace when ambulating. If patient develops a headache,have him lay flat 3: Pain Control: Good 4: Discharge Planning: Pending - planning SNF 5: Acute blood loss anemia s/p surgery, hgb 7.2, continue to monitor ADRIA Sims * Lavinia Champagne RN - 04/01/2024 12:16 AM EST Patient educated on how to use incentive spirometer. Patient verbalized understanding and demonstrated proper use. Emphasized importance and usage of device, with coughing and deep breathing every 2 hours while awake. * Herb Ch MD - 03/31/2024 5:02 PM EST INTERNAL MEDICINE Progress Note 03/31/2024 5:02 PM Subjective: Admit Date: 03/29/2024 PCP: Mago Mcclendon ND Interval History: Passing flatus, no BM No ROTHMAN Objective: Vitals: BP (!) 106/90 Pulse 98 Temp 98.2 F (36.8 C) (Oral) Resp 16 Ht 1.822 m (5' 11.75 ) Wt 92.1 kg (203 lb) SpO2 98% BMI 27.72 kg/m General appearance: alert and cooperative with exam HEENT: atraumatic Neck: no adenopathy, no carotid bruit, and no JVD Lungs: clear to auscultation bilaterally Heart: S1, S2 normal Abdomen: normal findings: bowel sounds normal, soft, non-tender, and symmetric and abnormal findings: distended Extremities: no edema, redness or tenderness in the calves or thighs Neurologic: Alert, oriented, thought content appropriate Medications: Scheduled Meds: famotidine 20 mg Oral Daily amLODIPine 5 mg Oral Daily finasteride 5 mg Oral Daily losartan 50 mg Oral Daily miconazole Topical BID tamsulosin 0.8 mg Oral Daily triamcinolone Topical BID triamterene-hydroCHLOROthiazide 1 tablet Oral Daily sodium chloride flush 5-40 mL IntraVENous 2 times per day polyethylene glycol 17 g Oral Daily bisacodyl 5 mg Oral Daily sennosides-docusate sodium 1 tablet Oral BID Continuous Infusions: sodium chloride 125 mL/hr at 03/29/24 2319 sodium chloride Lab Results: CBC: Recent Labs 03/30/24 2241 03/31/24 0432 03/31/24 1107 HGB 7.3* 7.5* 7.5* BMP: Recent Labs 03/29/24 1228 03/30/24 0514 03/31/24 0432 NA -- 139 135 K 4.2 4.9 4.3 CL -- 108 104 CO2 -- 21* 21* BUN -- 25* 40* CREATININE -- 1.4* 1.7* GLUCOSE -- 185* 106 Assessment and Plan: L2-S1 degenerative disc disease / L2-S1 lumbar stenosis with radiculopathy Lumbar degenerative scoliosis S/p L2-S1 jen laminectomy and PSF HTN CKD Anemia post op +anemia of chronic kidney dx Cont post op care Bowel regimen PT/OT Cont care. Am labs. Herb Ch MD, MD * Tavia Royal TIFFANIE - 03/31/2024 2:45 PM EST [facility] ORTHOPEDICS Occupational Therapy Daily Note Discharge Recommendations: Subacute/chcf facility Equipment Recommendations: No Rolling walker, LHAE?? Time In: 1407 Time Out: 1445 Timed Code Treatment Minutes: 38 Minutes Minutes: 38 Date: 03/31/2024 Patient Name: Barry Mcmillan, Gender: male Room: [facility]/026- : 1940 (84 y.o.) Referring Practitioner: Luiz Nice PA Diagnosis: Lumbar stenosis with neurogenic claudication Additional Pertinent Hx: Per EMR, The patient is an 84-year-old male with complaints of progressive low back pain. Patient has a chronic history of low back pain that alex progressively worsened over the last 4 years. He also repots pain down the bilateral lateral legs. Current VAS score of 7 out of 10. Percentagewise 90% of patient's pain is in his back and 10% into the legs. Patient remains very active but his pain is limiting him with activities of daily living now. He has tried multiple rounds of physical therapy, [facility] care facility, epidural injections, lumbar medial branch blocks, and medications without relief of his pain and symptoms. Standing and walking aggravates his pain. Sitting helps relieve his pain. Patient is a non-smoker. Restrictions/Precautions: Restrictions/Precautions: Fall Risk, General Precautions Required Braces or Orthoses Spinal: Lumbar Corset Position Activity Restriction Spinal Precautions: No Bending, No Lifting, No Twisting Other Position/Activity Restrictions: Prefers Barney ; Monitor BP Social/Functional History: Lives With: Alone Type of Home: House Home Layout: Two level Home Access: Stairs to enter with rails Entrance Stairs - Number of Steps: 14 ILIR Home Equipment: Rollator Bathroom Shower/Tub: Walk-in shower Bathroom Toilet: Handicap height Bathroom Accessibility: Accessible Prior Level of Assist for ADLs: Independent Prior Level of Assist for Homemaking: Independent Homemaking Responsibilities: Yes Prior Level of Assist for Transfers: Independent Prior Level of Assist for Ambulation: Independent household ambulator, with or without device Active Assembler Cards And Announcements: Yes SUBJECTIVE: ELY navarrete OT session. Pt. In bed resting upon arrival, agreeable to participate. PAIN: 05/16: low back increased with movement Vitals: Nurse checked vitals prior to session COGNITION: Decreased Recall, Decreased Insight, Decreased Problem Solving, and Decreased Safety Awareness ADL: Upper Extremity Dressing: Moderate Assistance. To don and doff corset Footwear Management: Maximum Assistance. To don socks and to dof with seafood and service meat manager and sock aid will continue to review. Pt. Has seafood and service meat manager at home daughter reports does not have the sock aid. Pt. Provided with purchasing information and To follow up with at next facility Toileting: Contact Guard Assistance. Toilet Transfer: Minimal Assistance, X 1, with verbal cues , and with increased time for completion. . IADL: Not Tested BALANCE: Sitting Balance: Stand By Assistance. Seated on EOB Standing Balance: Contact Guard Assistance. 1 min or less due to fatigue this date BED MOBILITY: Supine to Sit: Minimal Assistance, X 1, with rail, with verbal cues , with increased time for completion Required MOD encouragement to attempt for self prior to asking for assistance. Sit to Supine: Minimal Assistance, X 1 to guide LE's into bed Scooting: Dependent- hercules utilized TRANSFERS: Sit to Stand: Minimal Assistance, X 1, with increased time for completion, cues for hand placement.From EOB and toilet Stand to Sit: Contact Guard Assistance. FUNCTIONAL MOBILITY: Assistive Device: Rolling Walker Assist Level: Contact Guard Assistance and with verbal cues . Distance: To and from bathroom and Within room Slow pace unsteady at times, Moderate fatigue ADDITIONAL ACTIVITIES: Pt. Initially declining SNF and reports returning home. Educated Pt. On his current level of function and discussed safety within the home. Daughter and son in law present and report will not be ableto physically assistance and also recommend SNF prior to home. Pt. Now in agreement, Pietro and Claudia notified. Precautions reviewed Pt. Unable to recall. Functional Outcome Measures: AM-PAC Inpatient Daily Activity Raw Score: 14 Modified Kaela: Current Functional Status: Not Applicable ASSESSMENT: Activity Tolerance: Patient tolerance of treatment: Fair treatment tolerance Plan: Times Per Week: 6x Times Per Day: Once a day Current Treatment Recommendations: ROM, Balance training, Functional mobility training, Endurance training, Patient/Caregiver education & training, Equipment evaluation, education, & procurement, Self-Care / ADL, Home management training, Safety education & training Education: Learners: Patient and Family ADL's, Precautions, Family Education, Equipment Education, Home Safety, Importance of Increasing Activity, Fall Prevention, and Assistive Device Safety Goals Short Term Goals Time Frame for Short Term Goals: Until discharge Short Term Goal 1: Pt will complete dynamic standing task x 5 minutes with 0 vcs for safety and Stand By Assist to increase indep and endurance with all sinkside grooming. Short Term Goal 2: Pt will complete functional mobility to/from BR and HH distances with Stand By Assist to increase indep with all toileting. Short Term Goal 3: Pt will complete LB dressing with Stand By Assist and LHAE PRN to increase indepwithin home environment. Short Term Goal 4: Pt will complete showering/bathing task with Stand By Assist to increase indep within home environment. Additional Goals?: No Longterm Goals Time Frame for Curriculum Coach Goals : No LTGs d/t short estimated length of stay. Following session, patient left in safe position with all fall risk precautions in place. * Jeanette Pleitez PTA - 03/31/2024 2:20 PM EST [facility] PHYSICAL THERAPY MISSED TREATMENT NOTE [facility] 7K Date: 03/31/2024 Patient Name: Barry Mcmillan : 1940 (84 y.o.) Gender: male Referring Practitioner: Luiz Nice PA REASON FOR MISSED TREATMENT: Patient with other ancillary department. Working with OT at time of attempt * Kj Hernández, MELISSA, LD - 03/31/2024 9:57 AM EST Comprehensive Nutrition Assessment Type and Reason for Visit: Initial (RN ordered ONS) Nutrition Recommendations/Plan: Continue diet per provider and encourage adequate PO intake at best efforts. Discontinue ONS order; Pt's family bringing Boost from home as pt prefers over Ensure; encouraged continuation upon discharge Recommend renal MVI - Folbee Plus Ileus prevention protocol added today (activia and hot beverage); recommend to continue bowel regimen as needed for constipation. Malnutrition Assessment: Malnutrition Status: At risk for malnutrition (03/31/24 0952) Context: Acute Illness Findings of the 6 clinical characteristics of malnutrition: Energy Intake: Mild decrease in energy intake (during LOS this admit) Weight Loss: Unable to assess (limited weight hx; pt denies; edema present this admit and hx/o CKD) Body Fat Loss: No body fat loss Muscle Mass Loss: No muscle mass loss Fluid Accumulation: Mild Extremities Web Marketing Strategist Strength: Not Performed Nutrition Assessment: Pt. nutritionally compromised AEB decreased appetite/PO intake. At risk for further nutrition compromise r/t s/p L2-S1 bilateral laminectomy and PSF, advanced age and underlying medical condition (PMHx: Skin cancer, acid reflux, CKD, HTN, psorasis, former smoker). Nutrition Related Findings: Pt. Report/Treatments/Miscellaneous: Barney was seen this morning, reports decrease in appetite this admission. Pt's daughter brought in vanilla Boost for pt as he prefers Boost over Ensure products. Pt requested ONS order to be stopped to prevent waste. Encouraged continuation of Boost intake this admit and at home. Pt declines any decrease in PO intake RETURNING OFFICER and denies weight changes. Overall feels like he is doing well - denies further nutritional needs at this time. GI Status: BM - 03/28; constipation Pertinent Labs: BUN 40, creatinine 1.7 Pertinent Meds: duloclax, pepcid, glycolax, senokot-s, flomax, oxycodone Wound Type: Surgical Incision (s/p bilateral laminectomy - lumbar wound) Current Nutrition Intake & Therapies: Average Meal Intake: 51-75% Average Supplements Intake: (vanilla boost from home) ADULT DIET; Regular ADULT ORAL NUTRITION SUPPLEMENT; Breakfast, Lunch, Dinner; Other Oral Supplement; activia and hot beverage Anthropometric Measures: Height: 182.2 cm (5' 11.75 ) [place] Body Weight (IBW): 177 lbs (80 kg) Admission Body Weight: 92.1 kg (203 lb 0.7 oz) (03/29: BLE +1 pitting) Current Body Weight: 92.1 kg (203 lb 0.7 oz) (03/29: BLE +1 pitting) Current BMI (kg/m2): 27.7 Usual Body Weight: (per EMR office visit noted: 02/25/23: 212# 9.6 oz, 10/07/23: 207# 9.6 oz, 02/22/24: 212# 9.6 oz) Weight Adjustment For: No Adjustment BMI Categories: Overweight (BMI 25.0-29.9) Estimated Daily Nutrient Needs: Energy Requirements Based On: Kcal/kg Weight Used for Energy Requirements: Admission (92.1 kg) Energy (kcal/day): 9255-4054 kcals (20-25 kcals/kg) Weight Used for Protein Requirements: [place] (80.45 kg) Protein (g/day): 64-80 grams (0.8-1.0 grams/kg of IBW) - CKD III Nutrition Diagnosis: Predicted inadequate energy intake related to decreased appetite as evidenced by intake 51-75% Nutrition Interventions: Food and/or Nutrient Delivery: Continue Current Diet, Discontinue Oral Nutrition Supplement (continue ONS from home) Nutrition Education/Counseling: Education/Counseling initiated Coordination of Nutrition Care: Continue to monitor while inpatient Goals: Goals: Meet at least 75% of estimated needs, by next RD assessment Type of Goal: New goal Nutrition Monitoring and Evaluation: Food/Nutrient Intake Outcomes: Food and Nutrient Intake, Supplement Intake Physical Signs/Symptoms Outcomes: Biochemical Data, GI Status, Fluid Status or Edema, Nutrition Focused Physical Findings, Skin, Weight, Constipation Discharge Planning: Continue Oral Nutrition Supplement (as RETURNING OFFICER) Kj Hernández RD, LD Contact: Branden Cruz PA-C - 03/31/2024 6:16 AM EST Department of Orthopedic Surgery Spine Service Attending Progress Note Subjective: POD#2 patient doing ok. Reports ambulated to bathroom. C/o surgical site pain and stiffness. Denies leg pain or N/T. Lundberg in place. No BM. Denies headache Denies n/v, CP, SOB Vitals VITALS: BP (!) 117/57 Pulse 91 Temp 97.9 F (36.6 C) (Oral) Resp 18 Ht 1.822 m (5' 11.75 ) Wt 92.1 kg (203 lb) SpO2 92% BMI 27.72 kg/m 24HR INTAKE/OUTPUT: Intake/Output Summary (Last 24 hours) at 03/31/2024 0616 Last data filed at 03/31/2024 0407 Gross per 24 hour Intake 640 ml Output 930 ml Net -290 ml URINARY CATHETER OUTPUT (Lundberg): [REMOVED] Urinary Catheter 03/29/24-Output (mL): 200 mL DRAIN/TUBE OUTPUT: Closed/Suction Drain Midline Back Accordion-Output (ml): 140 ml Closed/Suction Drain Midline Back Accordion-Output (ml): 180 ml PHYSICAL EXAM: Orientation: alert and oriented to person, place and time Incision: dressing in place, clean, dry, intact Lower Extremity Motor : quadriceps, extensor hallucis longus, dorsiflexion, plantarflexion 5/5 bilaterally Lower Extremity Sensory: Intact L1-S1 Flatus: positive LABS: HgB: Lab Results Component Value Date/Time HGB 7.5 03/31/2024 04:32 AM Hemoglobin/Hematocrit: Lab Results Component Value Date/Time HGB 7.5 03/31/2024 04:32 AM HCT 23.8 03/31/2024 04:32 AM BMP: Lab Results Component Value Date/Time NA 135 03/31/2024 04:32 AM K 4.3 03/31/2024 04:32 AM CL 104 03/31/2024 04:32 AM CO2 21 03/31/2024 04:32 AM BUN 40 03/31/2024 04:32 AM CREATININE 1.7 03/31/2024 04:32 AM CALCIUM 8.0 03/31/2024 04:32 AM LABGLOM 39 03/31/2024 04:32 AM GLUCOSE 106 03/31/2024 04:32 AM ASSESSMENT AND PLAN: Post operative day 2 status post L2-S1 decompression and fusion 1: Monitor labs and drain output 2: Activity Level: As tolerated. PT/OT, back brace when ambulating. If patient develops a headache,have him lay flat 3: Pain Control: Good 4: Discharge Planning: Pending 5: Acute blood loss anemia s/p surgery, hgb 7.5 Branden Francois PA-C * Herb Ch MD - 03/30/2024 4:58 PM EST INTERNAL MEDICINE Progress Note 03/30/2024 4:58 PM Subjective: Admit Date: 03/29/2024 PCP: Mago Mcclendon ND Interval History: Feels better today No ROTHMAN Objective: Vitals: BP (!) 108/56 Pulse 89 Temp 97.5 F (36.4 C) (Oral) Resp 18 Ht 1.822 m (5' 11.75 ) Wt 92.1 kg (203 lb) SpO2 94% BMI 27.72 kg/m General appearance: alert and cooperative with exam HEENT: Head: atraumatic Neck: no adenopathy, no carotid bruit, and no JVD Lungs: clear to auscultation bilaterally Heart: S1, S2 normal Abdomen: normal findings: bowel sounds normal, soft, non-tender, and symmetric and abnormal findings: distended Extremities: no edema, redness or tenderness in the calves or thighs Neurologic: Mental status: Alert, oriented, thought content appropriate Medications: Scheduled Meds: famotidine 20 mg Oral Daily amLODIPine 5 mg Oral Daily finasteride 5 mg Oral Daily losartan 50 mg Oral Daily miconazole Topical BID tamsulosin 0.8 mg Oral Daily triamcinolone Topical BID triamterene-hydroCHLOROthiazide 1 tablet Oral Daily sodium chloride flush 5-40 mL IntraVENous 2 times per day polyethylene glycol 17 g Oral Daily bisacodyl 5 mg Oral Daily sennosides-docusate sodium 1 tablet Oral BID Continuous Infusions: sodium chloride 125 mL/hr at 03/29/24 2319 sodium chloride Lab Results: CBC: Recent Labs 03/30/24 0514 03/30/24 1106 03/30/24 1634 HGB 8.6* 9.1* 8.1* BMP: Recent Labs 03/29/24 1228 03/30/24 0514 NA -- 139 K 4.2 4.9 CL -- 108 CO2 -- 21* BUN -- 25* CREATININE -- 1.4* GLUCOSE -- 185* Assessment and Plan: L2-S1 degenerative disc disease / L2-S1 lumbar stenosis with radiculopathy Lumbar degenerative scoliosis S/p L2-S1 jen laminectomy and PSF HTN CKD Anemia post op +anemia of chronic kidney dx Cont post op care Bowel regimen PT/OT Cont care. Am labs. Herb Ch MD, MD * Jamila Gold, PT - 03/30/2024 3:38 PM EST [facility] INPATIENT PHYSICAL THERAPY EVALUATION [facility] 7K - [id number]-26/[id number] Discharge Recommendations: Continue to assess pending progress, Subacute/Shelter Facility, Therapy recommended at discharge Equipment Recommendations: monitor for needs Time In: 1530 Time Out: 1610 Timed Code Treatment Minutes: 30 Minutes Minutes: 40 Date: 03/30/2024 Patient Name: Barry Mcmillan, Gender: male : 1940 (84 y.o.) Referring Practitioner: Luiz Nice PA Diagnosis: Lumbar stenosis with neurogenic claudication Additional Pertinent Hx: Per EMR, The patient is an 84-year-old male with complaints of progressive low back pain. Patient has a chronic history of low back pain that alex progressively worsened over the last 4 years. He also repots pain down the bilateral lateral legs. Current VAS score of 7 out of 10. Percentagewise 90% of patient's pain is in his back and 10% into the legs. Patient remains very active but his pain is limiting him with activities of daily living now. He has tried multiple rounds of physical therapy, [facility], epidural injections, lumbar medial branch blocks, and medications without relief of his pain and symptoms. Standing and walking aggravates his pain. Sitting helps relieve his pain. Patient is a non-smoker. Restrictions/Precautions: Restrictions/Precautions: Fall Risk, General Precautions Spinal Precautions: No Bending, No Lifting, No Twisting Other Position/Activity Restrictions: Prefers Barney ; Monitor BP Required Braces or Orthoses?: Yes Spinal: Lumbar Corset Subjective: Chart Reviewed: Yes Patient assessed for rehabilitation services?: Yes Subjective: Pt resting in recliner and agrees to therapy. Pt can be talkative. General: Vision: Impaired Vision Exceptions: Wears glasses at all times Pain: 08/16: back surgical site and a little down L LE Vitals: Blood Pressure: 92/58 after ambulating and returning to sidelying; RN notified. Pt was noted to have some Loss of balance and lean to Left during ambulation and reported lightheadedness upon sitting back down. Social/Functional History: Lives With: Alone Type of Home: House Home Layout: Two level Home Access: Stairs to enter with rails Entrance Stairs - Number of Steps: 14 ILIR Home Equipment: Rollator Bathroom Shower/Tub: Walk-in shower Bathroom Toilet: Handicap height Bathroom Accessibility: Accessible Prior Level of Assist for ADLs: Independent Prior Level of Assist for Homemaking: Independent Homemaking Responsibilities: Yes Prior Level of Assist for Transfers: Independent Prior Level of Assist for Ambulation: Independent household ambulator, with or without device Active Assembler Cards And Announcements: Yes OBJECTIVE: Range of Motion: Bilateral Lower Extremity: WFL Strength: Bilateral Lower Extremity: grossly 4-/5 Balance: Static Sitting Balance: Supervision Dynamic Sitting Balance: Stand By Assistance Static Standing Balance: Contact Guard Assistance, with walker Dynamic Standing Balance: Contact Guard Assistance, Minimal Assistance, with walker Bed Mobility: Sit to Supine: Moderate Assistance, with head of bed flat, with rail, with verbal cues , with increased time for completion, cues for back precautions Transfers: Sit to Stand: Contact Guard Assistance, cues for hand placement Stand to Sit:Minimal Assistance, cues for hand placement Ambulation: Contact Guard Assistance, Minimal Assistance Distance: 18 ft Surface: Level Tile Device: Rolling Walker Gait Deviations: Decreased Step Length Bilaterally, Lean to Left, Decreased Gait Speed, Decreased Heel Strike Bilaterally, Narrow Base of Support, Moderate Path Deviations, Unsteady Gait, and Increased reliance on assistive device. Pt was noted to have some Loss of balance and lean to Left during ambulation and reported lightheadedness upon sitting back down. Stairs: Not Tested Exercise: Patient was guided in 1 set(s) 5-10 reps of exercises to both lower extremities: Ankle pumps, Glut sets, Quad sets, Hip abduction/adduction, Seated marches, and Long arc quads. Exercises were completed for increased independence with functional mobility. Functional Outcome Measures: [facility] (6 CLICK) BASIC MOBILITY AM-[facility] Inpatient Mobility Raw Score : 17 AM-[facility] Inpatient T-Scale Score : 42.13 Modified [place]: Premorbid Functional Status: Not Applicable Current Functional Status: Not Applicable ASSESSMENT: Activity Tolerance: Patient tolerance of treatment:Good. Treatment Initiated: Treatment and education initiated within context of evaluation. Evaluation time included review of current medical information, gathering information related to past medical, social and functional history, completion of standardized testing, formal and informal observation of tasks, assessment of data and development of plan of care and goals. Treatment time included skilled education and facilitation of tasks to increase safety and independence with functional mobility forimproved independence and quality of life. Assessment: Body Structures, Functions, Activity Limitations Requiring Skilled Therapeutic Intervention: Decreased functional mobility , Decreased strength, Decreased endurance, Decreased balance, Increased pain Assessment: Pt is 84 yo male that is deconditioned and participated well. Pt was generally Mod Ind for mobility in PLOF and is at CGA to Min A today. Pt is not safe for return to home at this time and would benefit from continued skilled PT to address strengthening, balance, bed mobility, endurancebuilding, and functional mobility training. Therapy Prognosis: Good Requires PT Follow-Up: Yes Patient Education: . Patient Education Education Given To: Patient Education Provided: Role of Therapy, Plan of Care, Home Exercise Program, Transfer Training, Mobility Training, Precautions Education Method: Demonstration, Verbal Barriers to Learning: None Education Outcome: Verbalized understanding, Demonstrated understanding, Continued education needed Plan: Current Treatment Recommendations: Strengthening, Balance training, Gait training, Functional mobility training, Transfer training, Patient/Caregiver education & training, Safety education & training, Home exercise program, Therapeutic activities, Endurance training, Stair training, Equipment evaluation, education, & procurement General Plan: (5x O/back) Goals: Patient Goals : go home Short Term Goals Time Frame for Short Term Goals: at discharge Short Term Goal 1: Pt to be Mod I for supine <> sit to get in/out of bed Short Term Goal 2: Pt to be Mod I for sit <> stand to get up to ambulate Short Term Goal 3: Pt to ambulate > 40 ft with RW with Supervision for household distances Short Term Goal 4: Pt to negotiate 4 steps with rail with SBA for home access Curriculum Coach Goals Time Frame for Longterm Goals : not set due to short ELOS Following session, patient left in safe position with all fall risk precautions in place. Jamila Gold, MPT [id number] * AmadorMaria LYamile Manzo, OT - 03/30/2024 1:03 PM EST [facility] INPATIENT OCCUPATIONAL THERAPY [facility] 7K EVALUATION Discharge Recommendations: Continue to assess pending progress, Subacute/Shelter Facility Equipment Recommendations: No Rolling walker, LHAE?? Time In: 1034 Time Out: 1128 Timed Code Treatment Minutes: 46 Minutes Minutes: 54 Date: 03/30/2024 Patient Name: Barry Mcmillan, Gender: male : 1940 (84 y.o.) Referring Practitioner: Luiz Nice PA Diagnosis: Lumbar stenosis with neurogenic claudication Additional Pertinent Hx: Per EMR, The patient is an 84-year-old male with complaints of progressive low back pain. Patient has a chronic history of low back pain that alex progressively worsened over the last 4 years. He also repots pain down the bilateral lateral legs. Current VAS score of 7 out of 10. Percentagewise 90% of patient's pain is in his back and 10% into the legs. Patient remains very active but his pain is limiting him with activities of daily living now. He has tried multiple rounds of physical therapy, [facility], epidural injections, lumbar medial branch blocks, and medications without relief of his pain and symptoms. Standing and walking aggravates his pain. Sitting helps relieve his pain. Patient is a non-smoker. Restrictions/Precautions: Restrictions/Precautions: Fall Risk, General Precautions Required Braces or Orthoses Spinal: Lumbar Corset Position Activity Restriction Spinal Precautions: No Bending, No Lifting, No Twisting Subjective Chart Reviewed: Yes, Orders, Progress Notes, History and Physical, Operative Notes Patient assessed for rehabilitation services?: Yes Subjective: RN okayed OT session. Upon arrival patient was resting in bed. Pt was agreeable to OT session. Pain: 310: Back Vitals: Vitals not assessed per clinical judgement, see nursing flowsheet Social/Functional History: Lives With: Alone Type of Home: House Home Layout: Two level Home Access: Stairs to enter with rails Entrance Stairs - Number of Steps: 14 ILIR Home Equipment: Rollator Bathroom Shower/Tub: Walk-in shower Bathroom Toilet: Handicap height Bathroom Accessibility: Accessible Prior Level of Assist for ADLs: Independent Prior Level of Assist for Homemaking: Independent Homemaking Responsibilities: Yes Prior Level of Assist for Transfers: Independent Prior Level of Assist for Ambulation: Independent household ambulator, with or without device Active Assembler Cards And Announcements: Yes VISION:WFL HEARING: WFL COGNITION: Slow Processing, Decreased Recall, Decreased Problem Solving, and Decreased Safety Awareness RANGE OF MOTION: Bilateral Upper Extremity: Impaired - decreased B shoulder flexion R>L STRENGTH: Bilateral Upper Extremity: Not Tested (Appears deconditioned) SENSATION: WFL ADL: Upper Extremity Dressing: Maximum Assistance. To don back brace Footwear Management: Maximum Assistance. To don B socks . IADL: Not Tested BALANCE: Sitting Balance: Stand By Assistance. With BUE on bed. Standing Balance: Contact Guard Assistance, with increased time for completion. With BUE on walker. BED MOBILITY: Supine to Sit: Moderate Assistance, X 1, with head of bed flat, with rail, with increased time for completion Scooting: Minimal Assistance, X 1 to scoot to EOB. TRANSFERS: Sit to Stand: Moderate Assistance, X 1, with increased time for completion, cues for hand placement. Stand to Sit: Minimal Assistance, X 1. FUNCTIONAL MOBILITY: Assistive Device: Rolling Walker Assist Level: Minimal Assistance, X 1, and with increased time for completion. Distance: around room and EOB to recliner Slow pace, No LOB. Activity Tolerance: Patient tolerance of treatment: Good treatment tolerance Functional Outcome Measures: AM-PAC Inpatient Daily Activity Raw Score: 14 Modified [place]: Premorbid Functional Status: Not Applicable Current Functional Status: Not Applicable Assessment: This 84 year old male presents with lumbar stenosis. Pt demonstrates weakness, decreased balance, decrease safety awareness, decreased endurance. Pt requires skilled OT intervention to increase indepand safety with all self cares, transfers, mobility, and IADLs to return to PLOF. Without skilled OT intervention patient is at increased risk for falls, caregiver burden, and hospital readmission after discharge. Pt would benefit from SNF at discharge. Performance deficits / Impairments: Decreased functional mobility , Decreased safe awareness, Decreased balance, Decreased ADL status, Decreased endurance, Decreased high-level IADLs, Decreased strength Prognosis: Good REQUIRES OT FOLLOW-UP: Yes Decision Making: Medium Complexity Treatment Initiated: Treatment and education initiated within context of evaluation. Evaluation time included review of current medical information, gathering information related to past medical, social and functional history, completion of standardized testing, formal and informal observation of tasks, assessment of data and development of plan of care and goals. Treatment time included skilled education and facilitation of tasks to increase safety and independence with ADL's for improved functional independence and quality of life. Patient Education: Patient Education Education Given To: Patient Education Provided: Role of Therapy;Plan of Care;Precautions;ADL Adaptive Strategies Education Method: Demonstration;Verbal Education Outcome: Verbalized understanding;Continued education needed Plan: Times Per Week: 6x Times Per Day: Once a day Current Treatment Recommendations: ROM, Balance training, Functional mobility training, Endurance training, Patient/Caregiver education & training, Equipment evaluation, education, & procurement, Self-Care / ADL, Home management training, Safety education & training. See long-term goal time frame for expected duration of plan of care. If no long-term goals established, a short length of stay is anticipated. Goals: Patient goals : Go Home Short Term Goals Time Frame for Short Term Goals: Until discharge Short Term Goal 1: Pt will complete dynamic standing task x 5 minutes with 0 vcs for safety and Stand By Assist to increase indep and endurance with all sinkside grooming. Short Term Goal 2: Pt will complete functional mobility to/from BR and HH distances with Stand By Assist to increase indep with all toileting. Short Term Goal 3: Pt will complete LB dressing with Stand By Assist and LHAE PRN to increase indepwithin home environment. Short Term Goal 4: Pt will complete showering/bathing task with Stand By Assist to increase indep within home environment. Additional Goals?: No Longterm Goals Time Frame for Curriculum Coach Goals : No LTGs d/t short estimated length of stay. AM-PAC Inpatient Daily Activity Raw Score: 14 AM-PAC Inpatient ADL T-Scale Score : 33.39 Following session, patient left in safe position with all fall risk precautions in place. * Luiz Nice PA - 03/30/2024 6:50 AM EST Department of Orthopedic Surgery Spine Service Attending Progress Note Subjective: POD#1 patient has not been out of bed yet. C/o surgical site pain but controlled. Denies leg pain or N/T. Lundberg in place. No BM. Denies headache Denies n/v, CP, SOB Vitals VITALS: BP 132/60 Pulse 87 Temp 98.8 F (37.1 C) (Oral) Resp 18 Ht 1.822 m (5' 11.75 ) Wt 92.1 kg (203 lb) SpO2 98% BMI 27.72 kg/m 24HR INTAKE/OUTPUT: Intake/Output Summary (Last 24 hours) at 03/30/2024 0650 Last data filed at 03/30/2024 0529 Gross per 24 hour Intake 3010 ml Output 2690 ml Net 320 ml URINARY CATHETER OUTPUT (Lundberg): Urinary Catheter 03/29/24-Output (mL): 300 mL DRAIN/TUBE OUTPUT: Closed/Suction Drain Midline Back Accordion-Output (ml): 300 ml Closed/Suction Drain Midline Back Accordion-Output (ml): 100 ml PHYSICAL EXAM: Orientation: alert and oriented to person, place and time Incision: dressing in place, clean, dry, intact Lower Extremity Motor : quadriceps, extensor hallucis longus, dorsiflexion, plantarflexion 5/5 bilaterally Lower Extremity Sensory: Intact L1-S1 Flatus: positive LABS: HgB: Lab Results Component Value Date/Time HGB 8.6 03/30/2024 05:14 AM Hemoglobin/Hematocrit: Lab Results Component Value Date/Time HGB 8.6 03/30/2024 05:14 AM HCT 26.0 03/30/2024 05:14 AM BMP: Lab Results Component Value Date/Time NA 139 03/30/2024 05:14 AM K 4.9 03/30/2024 05:14 AM CL 108 03/30/2024 05:14 AM CO2 21 03/30/2024 05:14 AM BUN 25 03/30/2024 05:14 AM CREATININE 1.4 03/30/2024 05:14 AM CALCIUM 7.7 03/30/2024 05:14 AM LABGLOM 50 03/30/2024 05:14 AM GLUCOSE 185 03/30/2024 05:14 AM ASSESSMENT AND PLAN: Post operative day 1 status post L2-S1 decompression and fusion 1: Monitor labs and drain output 2: Activity Level: As tolerated. PT/OT, back brace when ambulating. If patient develops a headache,have him lay flat 3: Pain Control: Good 4: Discharge Planning: Pending 5: Remove lundberg 6: Acute blood loss anemia s/p surgery, hgb 8.6 from 10.5. Afternoon H&H, AM labs 7: Creatinine stable from preop ADRIA Sims * Jamila Bill RN - 03/29/2024 6:52 PM EST 1831- pt to pacu. Pt denies pain, nausea. Drowsy. VSS pt appears in no acute distress. 184- pt reports pain at pre op pain level 8/10, reports this is pain level he has lived at, pt needs encouraged to deep breathe to maintain adequate oxygenation. Pt reports understanding of pain goal. VSS 185- report called to 7K nurse Call to [facility] to update family, sendt to 7k to await pt arrival. 1905- pt reports pain increasing, pt medicated per orders, assisted to reposition on right side with pillow support. 1914- pt reports pain improving, tolerable at this time. VSS 1927- pt meets criteria for discharge from pacu, awaiting transport. 1930- Transport arrives to take pt to 7K 26 in stable condition. * Brittani Echeverria RN - 03/29/2024 1:15 PM EST Patient oriented to Same Day department and admitted to Same Day Surgery room 5. Patient verbalized approval for first name, last initial with physician name on unit whiteboard. Plan of care reviewed with patient. Patient room whiteboard filled out and discussed with patient and responsible adult. Patient and responsible adult offered Same Day Welcome Packet to review. Call light in reach. Bed in lowest position, locked, with one bed rail up. SCDs and warming blanket in place. Appropriate arm bands on patient. Bathroom offered. All questions and concerns of patient addressed. Meds to Beds: Patient informed of [facility] Meds to Beds program during admission. Patient is agreeable to program. Contact information for the pharmacy and the Meds to Beds program: Name: [facility] Relationship to patient:patient Phone number: in house * Xi Gonzalez RN - 03/28/2024 8:30 AM EST Called [facility] medcial records for patient labs, EKG, and CXR They said they will be faxing * Xi Gonzalez RN - 03/25/2024 12:31 PM EST Called and left message with Fabby at Dr Bobby office for BMP, CBC, CXR, and EKG * Scarlett Rogers RN - 03/21/2024 11:40 AM EST Phoned [facility] to have pre op testing and clearance faxed when available to PAT * Scarlett Rogers RN - 03/21/2024 11:33 AM EST Preliminary Discharge Planning Questionnaire Date of Surgery 03/29 Surgeon Bobby Having the proper help and care after surgery is very important to your recovery. Who will be able to help you at home when you are discharged from the hospital? daughter How many steps to enter your home? 3 Bathroom on first floor? Yes HAS SHOWER CHAIR Bedroom on the first floor? Yes Do you have an elevated toilet seat to use at home? No Do you have a walker to use at home? Total Joints - with wheels N/A Spine - with wheels Yes Have you been doing home exercises-no *You will go home with some outpatient physical therapy, where do you prefer to go? Patient states he has spoke with dr regarding going to Rehab at [facility] This typically will not start until after your post visit to your Dr. (3-4 weeks after surgery) * What home health agency would you like to use- PT STATES HE DOES NOT WISH TO HAVE HOME HEALTH WANTS TO GO TO REHAB UNIT List of all Home Health Agencies Available given to patient, with website ( per Social Work Team) Please have 2 preferences when you come for surgery- 1st and 2nd choice * Scarlett Rogers RN - 03/21/2024 10:54 AM EST Images from the original note were not included. Follow all instructions given by your physician If Urology case Call [phone] the weekday before procedure to find out Arrival Time. Do not eat or drink anything after midnight prior to surgery(includes water, chewing gum, mints andice chips) Sips of water am of surgery with allowed medications May brush teeth Do not smoke or chew tobacco, drink alcoholic beverages or use any illicit drugs for 24 hours priorto surgery Bring insurance info and photo ID Bring pertinent paperwork with you from Doctor or surgeons's office Wear clean comfortable, loose-fitting clothing No make-up, nail yoruba, jewelry, piercings, or contact lenses to be worn day of surgery No glue on dentures morning of surgery; you will be asked to remove them for surgery. Case for glasses. Shower the night before and the morning of surgery with cleansing soap provided or a liquid antibacterial soap, dry with new fresh clean towel after each shower, no lotions, creams or powder. Clean sheets and pillowcase on bed night before surgery Bring medications in original bottles, Bring rescue inhalers with you Bring CPAP/BIPAP machine if you have one ( you may be charged if one is needed in recovery room ) Do you have a DNR? no Please Bring Healthcare Directive or Healthcare Power of Seismic Survey Assistant in so we can scan it into your chart. Our pharmacy has a Meds to Beds program where they will deliver any new prescriptions you may have to your room before you leave. Our Pharmacy will clear it through your insurance; for example (same co pay). This enables you to take your new RX as soon as you need when you get home and avoids stop/wait delays on the way home. Please have a form of payment with you and have someone designated as your Pharmacy contact with their phone # as you may not feel well or still be under the influence of anesthesia. Please refer to the SSI-Surgical Site Infection Flyer you hopefully received in the mail-together we can prevent infections; signs and symptoms reviewed. When discharged be sure you understand how to care for your wound and that you have the Dr./office phone # to call if you have any concerns or questions about your wound. Assembler Cards And Announcements needed at discharge and someone over 18 to stay with you for 24 hours overnight (surgery maybe cancelled if you don't have this) Report to [facility] on 2nd floor If you would become ill prior to surgery, please call the surgeon May have a visitor with you, we request that you limit to 2 visitors in pre-op area Masks are recommended but not required, new masks at entrance desk Call [facility] [phone] for any questions * Scarlett Rogers RN - 03/21/2024 9:55 AM EST PAT Call Date: 03/21 Surgery Date: 03/29 Surgeon: [facility] Surgery: back fusion Any Isolation Precautions? No Type of Isolation Precaution: Not Applicable Is patient from a detention? [place]: Any equipment assist needed for moving patient? No Type of Equipment: Not Applicable Patient last weight: 205 lb Hard Copy on Chart In [employer] Pending/Notes Consent - Within 30 days; signed, dated & timed by patient and physician [] On Arrival [] Blood [] DNR H&P - Within 30 days [] Physician To Do Clearance - [x]Medical MUHAMED 03/22 []Cardiac [] Pulmonary Orders - Signed and Dated [] Physician To Do Labs - Within 3 months DONE AT [facility] [x] CBC [x] BMP [x] GFR [] INR [] PTT [] Urine [] Liver Enzymes [x] MRSA Nasal Others: Radiology Studies - Within 1 year DONE AT [facility] [x] Chest X-Ray [] MRI [] CT [] Vascular [] US Pulmonary - [] SAPNA [] CPAP Cardiac Workup - Stress Test, Echo, Cath within 18 months DONE AT [facility] [x] EKG [] Cath [] Stress Test [] Echo/NILAM [] CABG [] Holter Monitor [] Pacemaker/ICD Brand: Where does patient have checked: Last check: Rep Notified: documented in this encounterBon [facility] NotePROCEDURE: XR LUMBAR SPINE 1 VW CLINICAL INFORMATION: L2-S1 Decompression and Fusion (Spine Lumbar) COMPARISON: No prior study. TECHNIQUE: Lumbar spine single crossfire lateral intraoperative view FINDINGS: Single posterolateral intraoperative view of the lumbar spine was obtained. Posterior fusion surgical hardware is noted from L2-S1. The visualized surgical hardware appears grossly intact. Multilevel degenerative disc disease of the lumbar spine is seen including disc base narrowing, endplate sclerosis and hypertrophic endplate change. This involves the L2-S1 levels. No loss of vertebral body height is seen. [facility] [id number] NotePROCEDURE: XR LUMBAR SPINE 1 VW CLINICAL INFORMATION: L2-S1 Decompression and Fusion (Spine Lumbar) COMPARISON: No prior study. TECHNIQUE: Lumbar spine single crossfire lateral intraoperative view FINDINGS: Single posterolateral intraoperative view of the lumbar spine was obtained. Posterior fusion surgical hardware is noted from L2-S1. The visualized surgical hardware appears grossly intact. Multilevel degenerative disc disease of the lumbar spine is seen including disc base narrowing, endplate sclerosis and hypertrophic endplate change. This involves the L2-S1 levels. No loss of vertebral body height is seen. IMPRESSION: 1. Single posterolateral intraoperative view of the lumbar spine demonstrates posterior fusion hardware from L2-S1. Please refer to operative report for further details. This report has been created using voice recognition software. It may contain minor errors which are inherent in voice recognition technology. Electronically signed by Dr. Palmer Lockhart Interpreted by: Jez Lockhart MD Signed by: Jez Lockhart MD 03/30/24 [facility] Discharge instructions* Discharge Instructions* Luiz Nice PA - 03/29/2024 5:29 PM EST Wound Care: -Do not change dressing or shower until Home Health has removed the Hemovac drain -Once drain is removed, start dressing changes once daily until incision is clean and dry, then okay to leave open to air. -Do not submerge incision in water. Avoid hot-tubs and pools -Do not shower until the drain has been removed and try to keep incision as dry as possible. Okay to remove drain when < 50 mL over 8 hours (combination between the two drains). Do not change dressing until drains are removed. Restrictions: -Limit bending and twisting -No lifting over 10-15 lbs -Walk as much as tolerated, take short frequent walks throughout the day and try to take one long walk a day (start at 5 minutes and increase as tolerated) -Wear back brace whenever you are ambulating -Use walker until you feel safe -Continue restrictions and wearing the back brace until your first postop appointment Medications: -A pain medication (Percocet) and muscle relaxer (Flexeril) will be sent to your pharmacy. Take medications as directed -Pain medications can cause postoperative constipation. Take an over the counter stool softener while taking the pain medication -Okay to resume vitamins and supplements one week after surgery -Hold all NSAIDs (I.e. ibuprofen, motrin, Aleve, etc) for 6 months following surgery -Okay to resume aspirin 72 hours after surgery and all other blood thinners 5 days following surgery unless otherwise directed Postoperative appointment: -Please contact the office to schedule an appointment for 6 weeks after surgery if you are not already scheduled for an appointment - ext [phone] If any concerning symptoms, such as calf pain/swelling, new numbness/tingling or pain please the contact the office. If concerning symptoms including weakness, chest pain or difficulty breathing, go to the Emergency Department. * Discharge Instr - [place]* Natalya Woodruff RANCH SUPERVISOR - 04/01/2024 12:26 PM EST Continuity of Care Form Patient Name: Barry Mcmillan : 1940 Admit date: 03/29/2024 Discharge date: 04/03/24 Code Status Order: Full Code Advance Directives: Advance Care Flowsheet Documentation Date/Time Healthcare Directive Type of Healthcare Directive Copy in Chart Healthcare Agent Appointed Healthcare Agent's Name Healthcare Agent's Phone Number 03/29/24 1218 Yes, patient has an advance directive for healthcare treatment -- Yes, copy in chart -- -- -- Admitting Physician: Mc Bobby MD PCP: Mago Mcclendon ND Discharging Nurse: Lizbeth Toussaint RN BSN Discharging Hospital Unit/Room#: 7K-26/026-A Discharging Unit Emergency Contact: Extended Emergency Contact Information Primary Emergency Contact: DEREJE RUANO Relation: Son-in-Law Field Machinist needed? No Secondary Emergency Contact: NEEL RUANO Relation: Child Field Machinist needed? No Past Surgical History: Past Surgical History: Procedure Laterality Date BACK SURGERY 1977 CERVICAL FUSION x2 HERNIA REPAIR JOINT REPLACEMENT Left shoulder failed per pt LUMBAR FUSION N/A 03/29/2024 L2-S1 Decompression and Fusion performed by Mc Bobby MD at [facility] OR Immunization History: Immunization History Administered Date(s) Administered COVID-19, MODERNA, (age 12y+), IM, 50mcg/0.5mL 12/12/2022 COVID-19, PFIZER Bivalent, DO NOT Dilute, (age 12y+), IM, 30 mcg/0.3 mL 12/16/2021 Active Problems: Patient Active Problem List Diagnosis Code Lumbar stenosis with neurogenic claudication M48.062 Isolation/Infection: Isolation No Isolation Patient Infection Status None to display Nurse Assessment: Last Vital Signs: BP (!) 92/56 Pulse (!) 112 Comment: complaining about everything, coffee, not being able to open his milk.... Temp 98.6 F (37 C) (Oral) Resp 18 Ht 1.822 m (5' 11.75 ) Wt 92.1 kg (203 lb) SpO2 94% BMI 27.72 kg/m Last documented pain score (0-10 scale): Pain Level: 8 Last Weight: Wt Readings from Last 1 Encounters: 03/29/24 92.1 kg (203 lb) Mental Status: oriented and alert IV Access: - None Nursing Mobility/ADLs: Walking Assisted Transfer Assisted Bathing Assisted Dressing Assisted Toileting Assisted Feeding Assisted Tier In Assisted Med Delivery whole Wound Care Documentation and Therapy: Incision 03/29/24 Back Medial (Active) Dressing Status Old drainage noted;Dry;Intact 03/31/242018 Dressing/Treatment Tegaderm/transparent film dressing;Gauze dressing/dressing sponge 03/31/242018 Closure Other (Comment) 03/31/24 1024 Incision Assessment Other (Comment) 03/31/24 1024 Drainage Amount None (dry) 03/31/242018 Odor None 03/31/24 1024 Rika-incision Assessment Other (Comment) 03/31/24 1024 Number of days: 3 Elimination: Continence: Bowel: Yes Bladder: Yes Urinary Catheter: None Colostomy/Ileostomy/Ileal Conduit: No Date of Last BM: 04/02/24 Intake/Output Summary (Last 24 hours) at 04/01/2024 1223 Last data filed at 04/01/2024 0347 Gross per 24 hour Intake 415 ml Output 325 ml Net 90 ml I/O last 3 completed shifts: In: 1115 [P.O.:1115] Out: 845 [Drains:845] Safety Concerns: At Risk for Falls Impairments/Disabilities: Vision and Hearing Nutrition Therapy: Current Nutrition Therapy: - Oral Diet: General Routes of Feeding: Oral Liquids: Thin Liquids Daily Fluid Restriction: no Last Modified Barium Swallow with Video (Video Swallowing Test): not done Treatments at the Time of Hospital Discharge: Respiratory Treatments: Oxygen Therapy: is not on home oxygen therapy. Ventilator: - No ventilator support Rehab Therapies: Physical Therapy and Occupational Therapy Weight Bearing Status/Restrictions: No weight bearing restrictions Other Medical Equipment (for information only, NOT a DME order): walker Other Treatments: Drain hemovac's every shift. Keep hemovac's compressed to 50%. Patient's personal belongings (please select all that are sent with patient): Easton RN SIGNATURE: CASE MANAGEMENT/SOCIAL WORK SECTION Inpatient Status Date: 03/31/2024 Readmission Risk Assessment Score: [facility] RISK OF UNPLANNED READMISSION 2.0 12.8 Total Score Discharging to Facility/ Agency Name: [facility] Address: [address] [place] [id number] Dialysis Facility (if applicable) Name: Address: Dialysis Schedule: Phone: Fax: Pharmacy Technician Inpatient/News Gathering Technician signature: at1:22 PM EST PHYSICIAN SECTION Prognosis: Good Condition at Discharge: Stable Rehab Potential (if transferring to Rehab): Good Recommended Labs or Other Treatments After Discharge: H&H (2 units PRBC on 04/02 for hgb of 6.9 - Hgb 9.7 on 04/03) Check drain outputs every 8 hours (ONLY HALF COMPRESSION ON DRAINS). Okay to remove drains when total between the two drain is <50cc over 8 hours. Do not change dressing until the drains are removed. Physician Certification: I certify the above information and transfer of Barry Mcmillan is necessary for the continuing treatment of the diagnosis listed and that he requires Shelter Facility for greater 30 days. Update Admission H&P: No change in H&P PHYSICIAN SIGNATURE: * Attachments The following attachments cannot be sent through Care Everywhere. * Blood Transfusions: General Info (Malian) documented in this encounterBon [facility] History of Present illness Narrative* Mago Mcclendon MD - 03/21/2024 1:00 PM EST Images from the original note were not included. [address] [place] [id number] Patient: Barry Mcmillan Date of : 1940 Encounter Date: 03/21/2024 SUBJECTIVE: Chief Complaint: Chief Complaint Patient presents with Pre-op Exam Surgery is scheduled for 03/29/24.Lower back Patient ID: Barry Mcmillan is a 84 y.o. male. [facility]. Spinal fusion planned by Dr. Mc Hewitt. BNP, PTT, INR, CBC all reviewed and within normal limits. Does have CKD stage 3. Chest x-ray completed shows no acute finding. Most recent cardiac echo is several years old back in May 26, 2017, at that time had normally EF 60 65% with no valvular abnormalities. Able to tolerate ambulating around his home, going up a flight of stairs without any shortness a breath. Most often has limited on his activity secondary to hip and back pain. Denies any shortness a breath, palpitations, presyncope, pedal edema. The following portions of the patient's history were reviewed and updated as appropriate: allergies, current medications, past family history, past medical history, past social history, past surgicalhistory and problem list. PHYSICAL EXAMINATION: Vitals: 03/21/24 1310 BP: 128/70 Pulse: 93 Temp: 36.6 C (97.8 F) TempSrc: Oral SpO2: 98% Weight: 95.3 kg (210 lb 3.2 oz) Height: 177.8 cm (5' 10 ) Physical Exam Vitals reviewed. Constitutional: General: He is not in acute distress. Appearance: Normal appearance. Eyes: Extraocular Movements: Extraocular movements intact. Pupils: Pupils are equal, round, and reactive to light. Cardiovascular: Rate and Rhythm: Normal rate and regular rhythm. Pulses: Normal pulses. Heart sounds: Normal heart sounds. Pulmonary: Effort: Pulmonary effort is normal. No respiratory distress. Breath sounds: Normal breath sounds. No wheezing or rhonchi. Abdominal: General: Bowel sounds are normal. There is no distension. Palpations: Abdomen is soft. There is no mass. Tenderness: There is no abdominal tenderness. There is no right CVA tenderness, left CVA tendernessor guarding. Musculoskeletal: Cervical back: Normal range of motion and neck supple. Neurological: Mental Status: He is alert and oriented to person, place, and time. Mental status is at baseline. ASSESSMENT/PLAN: Barney was seen today for pre-op exam. 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 Patient is low to intermediate risk for any cardiac event for this spinal fusion. Does have a diagnosis of CKD stage 3, encourage appropriate hydration and follow-up of renal function postoperatively. Did review the possible need for patient to require inpatient rehab although goal would be for him to go home with outpatient rehab MAGO MCCLENDON MD Family Medicine Physician [facility] 03/21/24 This note was completed with voice recognition software. The document was reviewed for errors however some may still be present. Please do not hesitate to contact/Epic msg the author to verify any questions/concerns. 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 He is feeling okay he said besides a little cough and congestion. He would like to know if PCP recommends he do anything. Please advise? 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 Also taking this with his flomax, may cause low bp, so should take flomax at a different time * Telephone Encounter - Roxi Lorenzo CMA - 11/23/2023 2:56 PM EDT Called patient to let him know about RX being sent to pharmacy, he verbalized understanding and will wait to hear from pharmacy. [facility] Telephone encounter Note* Telephone Encounter - Sakshi Flores CMA - 11/23/2023 2:56 PM EDT Patient called and his daughter tested positive for covid 5 days ago and they decided to test him last night and he is positive. He is feeling okay he said besides a little cough and congestion. He would like to know if PCP recommends he do anything. Please advise? 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 Also taking this with his flomax, may cause low bp, so should take flomax at a different time [facility]-16-[facility] Telephone encounter Note* Telephone Encounter - Roxi Lorenzo CMA - 11/23/2023 2:56 PM EDT Called patient to let him know about RX being sent to pharmacy, he verbalized understanding and will wait to hear from pharmacy. [facility] History of Present illness Narrative* Mago Mcclendon MD - 10/27/2023 10:00 AM EDT [address] [place] [id number] Patient: Barry Mcmillan Date of : 1940 Encounter Date: 10/27/2023 SUBJECTIVE: Chief Complaint: No chief complaint on file. Patient ID: Barry Mcmillan is a 83 y.o. male. Was seen by primary care provider couple weeks ago, prescribed Debrox for cerumen impaction Has been applying since that time. Still not able to hear. He was evaluated and full of cerumen appears soft. Attempted to flush by MA. Reassessment by MD showed opening with some fragments of cerumen still planted in both ears. About 50% of the eardrum was visualized on right ear, 70% of the eardrum was visualized on the left ear. Overall patient felt comfortable Recommended he continue to apply Debrox in his ears once a day for the next 14 days. The following portions of the patient's history were reviewed and updated as appropriate: allergies, current medications, past family history, past medical history, past social history, past surgicalhistory and problem list. PHYSICAL EXAMINATION: There were no vitals filed for this visit. Physical Exam Vitals reviewed. Constitutional: General: He is not in acute distress. Appearance: Normal appearance. HENT: Right Ear: Tympanic membrane, ear canal and external ear normal. There is impacted cerumen. Left Ear: Tympanic membrane, ear canal and external ear normal. There is impacted cerumen. Ears: Comments: Resolved impaction after flush Eyes: Extraocular Movements: Extraocular movements intact. Pupils: Pupils are equal, round, and reactive to light. Cardiovascular: Rate and Rhythm: Normal rate and regular rhythm. Pulses: Normal pulses. Heart sounds: Normal heart sounds. Pulmonary: Effort: Pulmonary effort is normal. No respiratory distress. Breath sounds: Normal breath sounds. No wheezing or rhonchi. Abdominal: General: Bowel sounds are normal. There is no distension. Palpations: Abdomen is soft. There is no mass. Tenderness: There is no abdominal tenderness. There is no right CVA tenderness, left CVA tendernessor guarding. Musculoskeletal: Cervical back: Normal range of motion and neck supple. Neurological: Mental Status: He is alert and oriented to person, place, and time. Mental status is at baseline. ASSESSMENT/PLAN: Diagnoses and all orders for this visit: Bilateral impacted cerumen Reassessment by MD showed opening with some fragments of cerumen still planted in both ears. About 50% of the eardrum was visualized on right ear, 70% of the eardrum was visualized on the left ear. Overall patient felt comfortable Recommended he continue to apply Debrox in his ears once a day for the next 14 days. MAGO MCCLENDON MD Family Medicine Physician [facility] 10/27/23 This note was completed with voice recognition software. The document was reviewed for errors however some may still be present. Please do not hesitate to contact/Epic msg the author to verify any questions/concerns. documented in this encounterHigh[facility]08-[facility] Chief complaint+Reason for visit Narrative* Chief Complaint PROCEDURE F/U RENAL 6 month f/u JEN SI JOINT INJECTIONS /VW F/U JEN SI JOINT INJECTIONS JEN LUMBAR FACET MBB L4 L5 /VW F/U JEN LUMBAR FACET MBB Reason for Visit Chronic pain Other low back pain Sacroiliitis, not elsewhere classified BPH loc w urin obs/LUTS Chronic kidney disease, stage 3a Hypercalcemia Hyperparathyroid bone disease Vitamin B12 deficiency Arthritis of lumbosacral spine Chronic pain Other low back pain Sacroiliitis, not elsewhere classified Arthritis of lumbosacral spine Chronic pain Other low back pain Sacroiliitis, not elsewhere classified [facility] Work Phone: 1(465) 979-126108-15-2024 Evaluation note* Diagnosis Onset Date Resolution Status [...] pain acute Sacroiliitis, not elsewhere classified acute [facility] Work Phone: 1(509) 383-367607-31-2024 History of Present illness Narrative* Roberta Patino, PRINTER 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 - 10/07/2023 10:40 AM EDT Subjective SUBJECTIVE: CC: Medicare annual wellness/dermatitis/cerumen impaction/edema Patient ID: Barry Mcmillan is a 83 y.o. male who presents for a Medicare Annual Wellness exam. Annual Exam Associated symptoms include a rash. Barney is here for Medicare annual wellness; also facial dermatitis, cerumen impaction and lower legedema. Barney has a cell phone, no life alert. He has a smoke, carbon monoxide detector and fire extinguisher. He has two steps to enter the home. He has an upstairs and there are railings present. He has a mat in the shower, no other assistive devices in the shower. There is good lighting in the home. There is a throw rug by the entry way, it is non-skid, there is also a throw rug by the front entrance which is non-skid. He and his daughter make the meals. He tries to eat from all the food groups. He has cataracts to both eyes, and will be having cataract surgery shortly. He sees the dentist twice ayear. He has no pets, he feels safe at home. He also relates break outs on his cheek and temples. The area is red and will occasionally drain clear fluid. He has a history of skin cancer on his arm. Also relates lower leg and ankle edema for the past two weeks. Sits at a desk most of the day, with leg dependent. Additionally, relates decreased hearing in right ear. Has a history of cerumen impaction. The following portions of the patient's history were reviewed and updated as appropriate: allergies, current medications, past family history, past medical history, past social history, past surgicalhistory and problem list. AWV FLOWSHEET : Lifestyle Assessment Do you smoke or use smokeless tobacco?: No If you smoke or use smokeless tobacco, are you ready to quit?: NA Are you exposed to secondhand smoke?: (!) Yes On average, how many drinks of alcohol do you consume in a week?: None Do you exercise for 30 or more minutes on average at least 3 days a week?: Always Do you have any tooth, denture, or oral problems?: No Do you snore or has anyone told you that you snore?: No Do you try to eat a balanced diet?: Yes Do you experience leakage of urine, also known as urinary incontinence?: (!) Sometimes Do you have difficulty performing any of these activities? (check all that apply): (!) Walking Do you have difficulty performing any of these activities? (check all that apply): None Fall Risk Fall Risk Assessment Completed?: Yes Have you fallen in the past year?: No Are you worried about falling?: No Do you feel unsteady when standing or walking?: (!) Yes Risk Stratification: Moderate Risk Depression Screening Little interest or pleasure in doing things: Not at all Feeling down, depressed, or hopeless: Not at all Trouble falling or staying asleep, or sleeping too much: Not at all Feeling tired or having little energy: (!) More than half the days Poor appetite or overeating: Not at all Feeling bad about yourself - or that you are a failure or have let yourself or your family down: Not at all Trouble concentrating on things, such as reading the newspaper or watching television: Not at all Moving or speaking so slowly that other people could have noticed. Or the opposite - being so fidgety or restless that you have been moving around a lot more than usual: Not at all Thoughts that you would be better off , or of hurting yourself in some way: Not at all PEG Scale What number best describes your pain on average in the past week?: 5 What number best describes how, during the past week, pain has interfered with your enjoyment of life?: 3 What number best describes how, during the past week, pain has interfered with your general activity?: 3 PEG Pain Total Score: 3.67 Safety Assessment Do you have throw rugs on the floor?: (!) Yes Do you feel safe at your home?: Yes Do you feel unsteady when walking?: (!) Yes Are you having difficulty with driving?: No Do you have trouble seeing?: (!) Yes What assistive device do you use? (check all that apply): None Hearing Assessment Do you strain or struggle to hear/understand conversations?: No Do you have trouble hearing the television or radio when others do not?: (!) Yes Does your family ever voice concerns about your hearing?: (!) Yes Do you wear hearing aid/s?: No Personal Health During the past 4 weeks, how would you rate your overall health?: (!) Fair Do you understand how to take all of your medications?: Yes How confident are you that you can control and manage most of your health problems?: (!) Somewhat confident In the past 12 months, how many times have you been hospitalized?: (!) One End of Life Planning Do you have a living will?: Yes Do you have a durable power of capacity analyst?: Yes Cognitive Screening Do you have trouble remembering or recalling facts or events?: (!) Yes Do family members or caregivers report that you have difficulty remembering things?: No Clock Drawing Test: Normal REVIEW OF SYSTEMS: Review of Systems Constitutional: Negative. HENT: Positive for ear discharge. Eyes: Negative. Respiratory: Negative. Cardiovascular: Positive for leg swelling. Gastrointestinal: Negative. Musculoskeletal: Negative. Skin: Positive for color change and rash. Neurological: Negative. Hematological: Negative. Psychiatric/Behavioral: Negative. Objective PHYSICAL EXAMINATION: Vitals: 10/07/23 1053 BP: 136/70 Pulse: 86 Temp: 36.7 C (98.1 F) SpO2: 99% Weight: 94.2 kg (207 lb 9.6 oz) Height: 177.8 cm (5' 10 ) Physical Exam Constitutional: General: He is not in acute distress. Appearance: Normal appearance. He is well-developed. HENT: Head: Normocephalic. Right Ear: External ear normal. There is impacted cerumen. Left Ear: External ear normal. Nose: Nose normal. Eyes: Conjunctiva/sclera: Conjunctivae normal. Pupils: Pupils are equal, round, and reactive to light. Cardiovascular: Rate and Rhythm: Normal rate. Heart sounds: No murmur heard. Pulmonary: Effort: Pulmonary effort is normal. Breath sounds: No wheezing. Abdominal: General: Bowel sounds are normal. Palpations: Abdomen is soft. There is no mass. Tenderness: There is no abdominal tenderness. Musculoskeletal: General: Normal range of motion. Cervical back: Normal range of motion. Right lower leg: Edema present. Left lower leg: Edema present. Comments: 1-2 + bilateral lower leg edema Lymphadenopathy: Cervical: No cervical adenopathy. Skin: General: Skin is warm and dry. Findings: Lesion and rash present. Neurological: Mental Status: He is alert and oriented to person, place, and time. Cranial Nerves: No cranial nerve deficit. Coordination: Coordination normal. Psychiatric: Behavior: Behavior normal. Assessment/Plan ASSESSMENT/PLAN Medicare annual wellness completed Pneumonia 20 given today Referral placed to dermatology for dermatitis To obtain Debrox; instructions for use given To return after Debrox use for cerumen impaction Increase Triamterene to daily prn, due to increased leg swelling Follow up in 6 months for HTN Barney was seen today for annual exam. Diagnoses and all orders for this visit: Medicare annual wellness visit, subsequent - Pneumococcal Conjugate 20-Valent Encounter for immunization - Pneumococcal Conjugate 20-Valent Dermatitis - Ambulatory referral to Dermatology (Non[facility]); Future Right ear impacted cerumen Edema of both lower legs - triamterene-hydroCHLOROthiazide (DYAZIDE) 37.5-25 mg per capsule; Take 1 capsule by mouth daily as needed (edema/htn). Return in about 5 months (around 02/22/2024) for htn. SWAPNA Day 10/07/23 1311 [facility] Miscellaneous Notes* Telephone Encounter - Anup Stockton CMA - 10/05/2023 10:52 AM EDT Patient requesting new order for both prescriptions. [facility] Telephone encounter Note* Telephone Encounter - Anup Stockton CMA - 10/05/2023 10:52 AM EDT Patient requesting new order for both prescriptions. [facility] History of Present illness Narrative* SWAPNA Day - 08/31/2023 10:20 AM EDT Subjective CC: HTN Patient ID: Barry Mcmillan is a 83 y.o. male. JEWEL Corley is here today for HTN. BP this visit is 140/78. He denies headache, dizziness, shortness of breath, chest pain, palpitations. He denies vision changes related to HTN but does endorse the need for cataract surgery. He has an appointment with his eye doctor in November to evaluate for his cataract surgery. He drinks about 3 insulated water jugs a day for his kidneys. He saw nephrology August 16 and stated they are going to see him yearly. Next follow- up for them will be August next year. Hewas endorsing some lower back pain and stated his recent cortisone shots weren't helping much. He still works from home about 15 hours/week. The following portions of the patient's history were reviewed and updated as appropriate: allergies, current medications, past family history, past medical history, past social history, past surgicalhistory, problem list, and medication reconciliation was completed including current medication andpost discharge medication. Review of Systems Constitutional: Negative. HENT: Negative. Eyes: Negative. Respiratory: Negative. Negative for chest tightness and shortness of breath. Cardiovascular: Negative. Negative for chest pain, palpitations and leg swelling. Gastrointestinal: Negative. Endocrine: Negative. Musculoskeletal: Positive for back pain. Skin: Negative. Allergic/Immunologic: Negative. Neurological: Negative for dizziness, light-headedness and headaches. Hematological: Negative. Psychiatric/Behavioral: Negative. All other systems reviewed and are negative. Objective Physical Exam Vitals and nursing note reviewed. Constitutional: Appearance: Normal appearance. HENT: Head: Normocephalic. Right Ear: External ear normal. Left Ear: External ear normal. Nose: Nose normal. Mouth/Throat: Mouth: Mucous membranes are moist. Eyes: Conjunctiva/sclera: Conjunctivae normal. Cardiovascular: Rate and Rhythm: Normal rate and regular rhythm. Pulses: Normal pulses. Heart sounds: Normal heart sounds. Pulmonary: Effort: Pulmonary effort is normal. Breath sounds: Normal breath sounds. Musculoskeletal: General: Normal range of motion. Cervical back: Normal range of motion. Right lower leg: No edema. Left lower leg: No edema. Skin: General: Skin is warm and dry. Neurological: General: No focal deficit present. Mental Status: He is alert and oriented to person, place, and time. Psychiatric: Mood and Affect: Mood normal. Behavior: Behavior normal. Thought Content: Thought content normal. Judgment: Judgment normal. Assessment/Plan Continue current medication regimen for HTN. Labs reviewed from nephrology appointment this month. MAW visit scheduled for October 06. Follow-up with eye doctor in November for cataracts. Continue drinking adequate amounts of water daily. Try OTC [place] for back pain. Plan to follow-up in thisoffice in 6 months for HTN. 1) Continue current HTN medication regimen. 2) MAW Visit in September. 3) Follow-up with eye doctor in November for cataracts. 4) Try [place] OTC for back pain. 5) Follow-up in this office in 6 months for HTN. Barney was seen today for hypertension. Diagnoses and all orders for this visit: Essential hypertension, benign Stage 3a chronic kidney disease ([facility]) Spinal stenosis of lumbar region with neurogenic claudication SWAPNA Day 08/31/23 1122 documented in this encounterHigh[facility]04-17-[facility]24 Miscellaneous Notes* Telephone Encounter - Sakshi Flores CMA - 06/24/2023 1:50 PM EDT Patient called here very upset stating pharmacy tried calling us several times to get this refilled. We explained we have not received anything from them he did not believe us. I then called pharmacyand they state they tried faxing us 3 times and I explained we did not receive anything. * Telephone Encounter - SWAPNA Ann - 06/24/2023 1:50 PM EDT I sent it. Thank you documented in this encounterHigh[facility]04-17-2024 Telephone encounter Note* Telephone Encounter - Sakshi Flores CMA - 06/24/2023 1:50 PM EDT Patient called here very upset stating pharmacy tried calling us several times to get this refilled. We explained we have not received anything from them he did not believe us. I then called pharmacyand they state they tried faxing us 3 times and I explained we did not receive anything. [address]17-2024 Telephone encounter Note* Telephone Encounter - SWAPNA Ann - 06/24/2023 1:50 PM EDT I sent it. Thank you [facility]03-07[facility] Miscellaneous Notes* Telephone Encounter - Rajani Thorne CNA - 05/14/2023 2:28 PM EST Barney notified of enrollment to the care management. documented in this encounterHigh[facility]03-[facility]24 Telephone encounter Note* Telephone Encounter - Rajani Thorne CNA - 05/14/2023 2:28 PM EST Barney notified of enrollment to the care management. [facility] Evaluation note* Encounter Date Diagnosis Assessment Notes [...] He does not take nonsteroidal anti-inflammatory drugs. [email or web address] Other 06-20-2023 Evaluation note* Encounter Date Diagnosis [...] He does not take nonsteroidal anti-inflammatory drugs. [email or web address] Other 04-04-2023 Evaluation note* Encounter Date Diagnosis [...] Cervical radiculopathy at C8 (ICD-10 - M54.12) [email or web address] Other 12-13-2022 Evaluation note* Encounter Date Diagnosis [...] He does not take nonsteroidal anti-inflammatory drugs. [email or web address] Other 08-23-2022 Evaluation note* Encounter Date Diagnosis [...] Cervical radiculopathy at C8 (ICD-10 - M54.12) [email or web address] Other 06-15-2022 Evaluation note* Encounter Date Diagnosis [...] He does not take nonsteroidal anti-inflammatory drugs. [email or web address] Other 05-24-2022 Evaluation note* Encounter Date Diagnosis [...] fusion of cervical spine (ICD-10 - Z98.1) [email or web address] Other 02-17-2022 Evaluation note* Encounter Date Diagnosis [...] meantime Apr, Cervical myelopathy (ICD-10 - G95.9) [email or web address] Other 01-06-2022 Evaluation note* Encounter Date Diagnosis [...] of right upper extremity (ICD-10 - G56.21) [email or web address] Other 10-07-2021 Evaluation note* Encounter Date Diagnosis [...] declined Dec, Cervical myelopathy (ICD-10 - G95.9) [email or web address] Other chief complaint+Reason for visit Narrative* Chief Complaint m47.12 FOLLOW UP PCD W/X-RAY CONSULT DR. 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 Spondylolisthesis, cervical region Chronic pain Other low back pain Sacroiliitis, not elsewhere classified Chronic pain Other low back pain Sacroiliitis, not elsewhere classified [facility] Work Phone: Chief complaint+Reason for visit [...] Hypercalcemia Hyperparathyroid bone disease Vitamin B12 deficiency [facility] Work Phone: Chief complaint+Reason for visit Narrative* Chief Complaint m47.12 FOLLOW UP PCD W/X-RAY CONSULT DR. NUÑEZ M47.818 Back Pain Back Pain PROCEDURE F/U RENAL 6 month f/u JEN SI JOINT INJECTIONS /VW Reason for Visit Arthropathy of both sacroiliac joints History of fusion of cervical spine Spondylolisthesis, cervical region Chronic pain Other low back pain Sacroiliitis, not elsewhere classified Chronic pain Other low back pain Sacroiliitis, not elsewhere classified BPH loc w urin obs/LUTS Chronic kidney disease, stage 3a Hypercalcemia Hyperparathyroid bone disease Vitamin B12 deficiency [facility] Work Phone: Chief complaint+Reason for visit Narrative* Chief Complaint CONSULT DR. NUÑEZ M47.818 Back Pain Back Pain PROCEDURE F/U RENAL 6 month f/u JEN SI JOINT INJECTIONS /VW F/U JEN SI JOINT INJECTIONS Reason for Visit Chronic pain Other low back pain Sacroiliitis, not elsewhere classified Chronic pain Other low back pain Sacroiliitis, not elsewhere classified BPH loc w urin obs/LUTS Chronic kidney disease, stage 3a Hypercalcemia Hyperparathyroid bone disease Vitamin B12 deficiency Arthritis of lumbosacral spine Chronic pain Other low back pain Sacroiliitis, not elsewhere classified [facility] Work Phone: Chief complaint+Reason for visit Narrative* Chief Complaint Back Pain Back Pain PROCEDURE F/U RENAL 6 month f/u JEN SI JOINT INJECTIONS /VW F/U JEN SI JOINT INJECTIONS JEN LUMBAR FACET MBB L4 L5 /VW Reason for Visit Chronic pain Other low back pain Sacroiliitis, not elsewhere classified BPH loc w urin obs/LUTS Chronic kidney disease, stage 3a Hypercalcemia Hyperparathyroid bone disease Vitamin B12 deficiency Arthritis of lumbosacral spine Chronic pain Other low back pain Sacroiliitis, not elsewhere classified [facility] Work Phone: Evaluation noteNo InformationNort [employer] Other Evaluation noteNo assessment information available [facility] Work Phone: Evaluation note* Diagnosis Onset Date Resolution Status 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 acute Spondylolisthesis, cervical region acute [facility] Work Phone: Evaluation note* Diagnosis Onset Date Resolution Status 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 acute Spondylolisthesis, cervical region acute Chronic pain acute Other low back pain acute Sacroiliitis, not elsewhere classified acute [facility] Work Phone: Evaluation note* Diagnosis Onset Date Resolution Status 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 acute Spondylolisthesis, cervical region acute Chronic pain acute Other low back pain acute Sacroiliitis, not elsewhere classified acute Chronic pain acute Other low back pain acute Sacroiliitis, not elsewhere classified acute [facility] Work Phone: evaluation note* Diagnosis Onset [...] bone disease acute Vitamin B12 deficiency acute [facility] Work Phone: Evaluation note* Diagnosis Onset [...] pain acute Sacroiliitis, not elsewhere classified acute [facility] Work Phone: Evaluation note* Diagnosis Onset [...] pain acute Sacroiliitis, not elsewhere classified acute [facility] Work Phone: Evaluation note* Diagnosis Dermatitis Contact dermatitis and other eczema, due to unspecified cause [facility] Diagnosis Urinary frequency- Primary [facility]* Diagnosis Lumbar stenosis with neurogenic claudication- Primary Spinal stenosis, lumbar region, with neurogenic claudication Lumbar stenosis with neurogenic claudication Spinal stenosis, lumbar region, with neurogenic claudication [facility] Diagnosis Enlarged prostate with urinary obstruction Hypertrophy of prostate with urinary obstruction and other lower urinary tract symptoms (LUTS) [facility]* Diagnosis Dermatitis Contact dermatitis and other eczema, due to unspecified cause [facility]* Diagnosis Dermatitis Contact dermatitis and other eczema, due to unspecified cause [facility]* Diagnosis Pain- Primary Generalized pain [facility] Dermatitis Contact dermatitis and other eczema, due to unspecified cause [facility]* Diagnosis Cervical neuropathic pain [facility]* Diagnosis Essential hypertension, benign- Primary Stage 3a chronic kidney disease ([facility]) Spinal stenosis of lumbar region with neurogenic claudication [facility]* Diagnosis Essential hypertension, benign [facility]* Diagnosis Essential hypertension, benign [facility]* Diagnosis Medicare annual wellness visit, subsequent- Primary Encounter for immunization Dermatitis Contact dermatitis and other eczema, due to unspecified cause Right ear impacted cerumen Impacted cerumen Edema of both lower legs [facility]* Diagnosis Essential hypertension, benign Cervical neuropathic pain [facility]* Diagnosis Bilateral impacted cerumen- Primary Impacted cerumen [facility]* Diagnosis Lumbosacral spondylosis without myelopathy- Primary Cervical neuropathic pain S/P laminectomy Other postprocedural status Spinal stenosis of lumbar region with neurogenic claudication [facility]* Diagnosis Dermatitis Contact dermatitis and other eczema, due to unspecified cause [facility]* Diagnosis Edema of both lower legs [facility] Diagnosis SARS-CoV-2 positive- Primary [facility]* Diagnosis SARS-CoV-2 positive- Primary [facility]* Diagnosis Enlarged prostate with urinary obstruction Hypertrophy of prostate with urinary obstruction and other lower urinary tract symptoms (LUTS) [facility]* Diagnosis Stage 3a chronic kidney disease (CMS-HCC)- Primary Essential hypertension, benign Edema of both lower legs Chronic diastolic congestive heart failure (CMS-HCC) [facility] N[facility] - Reported* Type Description Date Medical History hypertension Medical History cervical myelopathy Medical History spinal stenosis Medical History pneumonia Medical History Acute Kidney Injury Medical History chronic kidney disease Surgical History back surgery Surgical History shoulder surgery Surgical History hemorrhoidectomy Surgical History hernia repair Surgical History Cervical fusion-Doctor Nuñez Hospitalization History See Above [email or web address] Other History general Narrative - Reported* Type Description Date Medical History hypertension Medical History cervical myelopathy Medical History spinal stenosis Medical History pneumonia Medical History Acute Kidney Injury Medical History chronic kidney disease Surgical History back surgery Surgical History shoulder surgery Surgical History hemorrhoidectomy Surgical History hernia repair Surgical History Cervical fusion-Doctor Nuñez 06/11/2021 Hospitalization History See Above [email or web address] Other InstructionsNot on filedocumented in this encounter [...] on filedocumented in this encounter [facility]* Attachments The following attachments cannot be sent through Care Everywhere. * High blood pressure in adults ([place]) documented in [facility]Pro[facility] SystemInstructionsNot on file documented in [facility]Pro[facility]Inst[facility]* Attachments The following attachments cannot be sent through Care Everywhere. * High Blood Pressure Discharge Instructions ([place]) documented in this [facility]Pro[facility] SystemInstructionsNot on file documented in this encounterProAs[facility] SystemInstructionsNot on file documented in this encounterProAs[facility] SystemInstructionsNot on file documented in this encounterProAsht[facility] SystemInstructionsNot on file documented in [facility] encounterC[facility] SystemReason for referral (narrative)* Consultation (Routine) - Pending Review Specialty Diagnoses / Procedures Referred By Contac t Referred To Contact Dermatology Diagnoses Dermatitis Roberta Patino APRN-INSPECTOR SOLDERING [address], [place] [address] Mara Landa MD [address], [address] [address] Referral ID Status Reason Start Date Expiration Date Visits Requested Visits Authorized [id number] Pending Review Specialty Services Required 10/07/2023 10/06/2024 [facility] Consultation (Routine) - Pending Review Specialty Diagnoses / Procedures Referred By Contac t Referred To Contact Pain Medicine Diagnoses Lumbosacral spondylosis without myelopathy Cervical neuropathic pain S/P laminectomy Spinal stenosis of lumbar region with neurogenic claudication Roberta Patino APRN-INSPECTOR SOLDERING [address], [place] [address] Mabel De La Garza MD [address] [place] [address] Referral ID Status Reason Start Date Expiration Date V isits Requested Visits Authorized [id number] Pending Review 11/04/2023 11/03/2024 1 1 Scheduling Instructions Would like [facility] if available [facility] Advance Directives No Advanced Directives Records Found Advance Directive Response Recorded Date/ Time Advance Directives No February 14, 2020 3:51pm Advance Directive Response Recorded Date/ Time Advance Directives No February 14, 2020 4:51pm Documents on File Type Date Recorded 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 Expl 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 ACP-Power of Seismic Survey Assistant 03/29/2024 12:28 PM Poa/Living Will Date Activated Date Inactivated Comments 03/29/2024 11:50 AM Chief Complaint and Reason for Visit Chief [...] accident (CVA) Unknown brother History of agent [place] exposure Unknown Relationship Condition Age at Onset Recorded Date/T fawad Not Specified Hypertension Unknown father Heart disease Unknown Hypertension Unknown daughter Cerebrovascular accident (CVA) Unknown brother History of agent [place] exposure Unknown brother Family history of mental disorder Unknown Malignant neoplasm Unknown daughter Hypertension Unknown History of stroke Unknown father Unknown family member Family history of other condition Unknow n Not Specified Unknown sister Malignant neoplasm Unknown Relationship Condition Age at Onset Recorded Date/T fawad mother Hypertension Unknown father Heart disease Unknown Hypertension Unknown daughter Cerebrovascular accident (CVA) Unknown brother History of agent [place] exposure Unknown brother Family history of mental [...] DATE CREATED AUTHOR AUTHOR'S ORGANIZ ATION 11/09/2020 [facility] DATE CREATED AUTHOR AUTHOR'S ORGANIZ ATION 07/24/2023 [facility] DATE CREATED AUTHOR AUTHOR'S ORGANIZ ATION 04/07/2024 [facility] DATE CREATED AUTHOR AUTHOR'S ORGANIZ ATION 05/07/2024 [facility] DATE CREATED AUTHOR AUTHOR'S ORGANIZ ATION 05/11/2024 [facility] REASON FOR VISIT (unrecogniz ed section and content) Reason Comments Med Refill Reason Onset Date Comments Med Refill 03/10/2024 Reason Comments Pre-op Exam Surgery is scheduled for 03/29/24.Lower back Specialty Diagnoses / Procedures Referred By Oly t Referred To Contact Diagnoses Spinal stenosis of lumbar region, unspecified whether neurogenic claudication present Spinal stenosis of lumbar region, unspecified whether neurogenic claudication present [M48.061] Procedures [place] ARTHRODESIS POSTERIOR/PSTLAT TQ 1NTRSPC LUMBAR [place] ARTHRODESIS PST/PSTLAT TQ 1NTRSPC EA ADDL NTRSPC IL ARNOLD FACETECTOMY & FORAMOTOMY 1 VRT SGM LUMBAR [place] ARNOLD FACETECTOMY&FORAMOT 1 VRT SGM EA ADDL SGM [place] POSTERIOR SEGMENTAL INSTRUMENTATION 3-6 VRT SEG IL AUTOGRAFT SPINE SURGERY LOCAL FROM SAME INCISION L2-S1 Decompression and Fusion L2-S1 Decompression and Fusion L2-S1 Decompression and Fusion L2-S1 Decompression and Fusion L2-S1 Decompression and Fusion L2-S1 Decompression and Fusion Mc Bobby MD [facility] [place] [address] [place] [address] [facility] [address] [place] [address] Referral ID Status Reason Start Date Expiration Date Visits Re quested Visits Authorized [id number] 1 1 Reason Onset Date Comments Med Refill 04/22/2024 Reason Comments Hypertension Reason Onset Date Comments Care Management 05/14/2023 Reason Onset Date Comments Med Refill 09/25/2023 Reason Onset Date Comments Med Refill 05/29/2023 Reason Comments Annual Exam MAW Reason Onset Date Comments Med Refill 11/10/2023 Reason Comments Concerns Kidneys Care Teams (unrecognized sec tion and content) Team Status: Inactive Member Role Status Dates Roberta Patino APRN CAMOUFLAGE SPECIALIST-C Primary Care Provider Active Willian Nuñez MD Attending Provider Active Team Status: Inactive Member Role Status Dates Roberta Patino APRN CAMOUFLAGE SPECIALIST-C Primary Care Provider Active Lynn Garcia MD Attending Provider Active Team Status: Active Member Role Status Dates Roberta Patino APRN CAMOUFLAGE SPECIALIST-C Primary Care Provider Active Team Status: Active Member Role Status Dates Roberta Patino APRN CAMOUFLAGE SPECIALIST-C Primary Care Provider Active Start: June 25, 2023 Willian Nuñez MD Attending Provider Active Star t: June 25, 2023 Team Status: Inactive Member Role Status Dates Roberta Patino APRN CAMOUFLAGE SPECIALIST-C Primary Care Provider Active Start: June 25, 2023 End: June 25, 2023 Willian Nuñez MD Attending Provider Active Star t: June 25, 2023 End: June 25, 2023 Team Status: Inactive Member Role Status Dates Roberta Patino APRN CAMOUFLAGE SPECIALIST-C Primary Care Provider Active Start: July 16, 2023 End: July 16, 2023 Angel Carbajal MD Attending Provider Active Sta rt: July 16, 2023 End: July 16, 2023 Team Status: Active Member Role Status Dates Roberta Patino APRN CAMOUFLAGE SPECIALIST-C Primary Care Provider Active Start: July 16, 2023 Angel Carbajal MD Attending Provider Active Sta rt: July 16, 2023 Team Status: Inactive Member Role Status Dates Roberta Patino APRN CAMOUFLAGE SPECIALIST-C Primary Care Provider Active Start: July 21, 2023 End: July 21, 2023 Angel Carbajal MD Attending Provider Active Sta rt: July 21, 2023 End: July 21, 2023 Team Status: Active Member Role Status Dates Roberta Patino APRN CAMOUFLAGE SPECIALIST-C Primary Care Provider Active Start: July 20 Angel Carbajal MD Attending Provider, Other Provider Active Start: July 21, 2023 Team Status: Inactive Member Role Status Dates Roberta Patino APRN CAMOUFLAGE SPECIALIST-C Primary Care Provider Active Start: August 18, 2023 End: August 18, 2023 Angel Carbajal MD Attending Provider Active Sta rt: August 18, 2023 End: August 18, 2023 Team Status: Inactive Member Role Status Dates Roberta Patino APRN CAMOUFLAGE SPECIALIST-C Primary Care Provider Active Start: August 19, 2023 End: August 19, 2023 Cristofer Grey MD Attending Provider Active Star t: August 19, 2023 End: August 19, 2023 Team Status: Active Member Role Status Dates Roberta Patino APRN CAMOUFLAGE SPECIALIST-C Primary Care Provider Active Start: August 26, 2023 Angel Carbajal MD Attending Provider Active Sta rt: August 26, 2023 Team Status: Inactive Member Role Status Dates Roberta Patino APRN CAMOUFLAGE SPECIALIST-C Primary Care Provider Active Start: September 18, 2023 End: September 18, 2023 Angel Carbajal MD Attending Provider Active Sta rt: September 18, 2023 End: September 18, 2023 Team Status: Inactive Member Role Status Dates Roberta Patino APRN CAMOUFLAGE SPECIALIST-C Primary Care Provider Active Start: September 24, 2023 End: September 24, 2023 Angel Carbajal MD Attending Provider Active Sta rt: September 24, 2023 End: September 24, 2023 Team Status: Inactive Member Role Status Dates Roberta Patino APRN CAMOUFLAGE SPECIALIST-C Primary Care Provider Active Start: October 14, 2023 End: October 14, 2023 Agnel Carbajal MD Attending Provider Active Sta rt: October 14, 2023 End: October 14, 2023 Team Status: Active Member Role Status Dates Roberta Patino APRN CAMOUFLAGE SPECIALIST-C Primary Care Provider Active Start: October 14, 2023 Angel Carbajal MD Attending Provider Active Sta rt: October 14, 2023 Team Status: Inactive Member Role Status Dates Roberta Patino APRN CAMOUFLAGE SPECIALIST-C Primary Care Provider Active Start: October 22, 2023 End: October 22, 2023 Angel Carbajal MD Attending Provider Active Sta rt: October 22, 2023 End: October 22, 2023 Electrical/Instrument Technician Relationship Specialty Start Date End Date Roberta Patino APRN-INSPECTOR SOLDERING [address], [place] [address] PCP - General Family Medicine 09/13/20 [facility] Nurse - [employer] 07/08/23 Electrical/Instrument Technician Relationship Specialty Start Date End Date Roberta Patino APRN-INSPECTOR SOLDERING [address], [place] [address] PCP - General Family Medicine 09/13/20 [facility] Nurse - [employer] 07/08/23 Electrical/Instrument Technician Relationship Specialty Start Date End Date Roberta Patino APRN-INSPECTOR SOLDERING [address], [place] [address] PCP - General Family Medicine 09/13/20 [facility] Nurse - [employer] 07/08/23 Electrical/Instrument Technician Relationship Specialty Start Date End Date Roberta Patino APRN-INSPECTOR SOLDERING [address], [place] [address] PCP - General Family Medicine 09/13/20 [facility] Nurse - [employer] 07/08/23 Electrical/Instrument Technician Relationship Specialty Start Date End Date Roberta Patino APRN-INSPECTOR SOLDERING [address], [place] [address] PCP - General Family Medicine 09/13/20 [facility] Nurse - [employer] 07/08/23 Electrical/Instrument Technician Relationship Specialty Start Date End Date Mago Mcclendon ND [address], [place] [address] PCP - General Family Medicine 03/30/24 Electrical/Instrument Technician Relationship Specialty Start Date End Date [facility] [address], [place] [address] PCP - General Family Medicine 09/13/20 Electrical/Instrument Technician Relationship Specialty Start Date End Date [facility] [address], [place] [address] PCP - General Family Medicine 09/13/20 Electrical/Instrument Technician Relationship Specialty Start Date End Date [facility] [address], [place] [address] PCP - General Family Medicine 09/13/20 Electrical/Instrument Technician Relationship Specialty Start Date End Date [facility] [address], [place] [address] PCP - General Family Medicine 09/13/20 [facility] Nurse - [employer] 07/08/23 Electrical/Instrument Technician Relationship Specialty Start Date End Date [facility] [address], [place] [address] PCP - General Family Medicine 09/13/20 [facility] CCM Nurse - [employer] 07/08/23 Electrical/Instrument Technician Relationship Specialty Start Date End Date [facility] [address], [place] [address] PCP - General Family Medicine 09/13/20 [facility] CCM Nurse - [employer] 07/08/23 Electrical/Instrument Technician Relationship Specialty Start Date End Date [facility] [address], [place] [address] PCP - General Family Medicine 09/13/20 [facility] Nurse - [employer] 07/08/23 Electrical/Instrument Technician Relationship Specialty Start Date End Date [facility] [address], [place] [address] PCP - General Family Medicine 09/13/20 [facility] Nurse - [employer] 07/08/23 Electrical/Instrument Technician Relationship Specialty Start Date End Date [facility] [address], [place] [address] PCP - General Family Medicine 09/13/20 [facility] CCM Nurse - [employer] 07/08/23 Electrical/Instrument Technician Relationship Specialty Start Date End Date SukumarRoberta ramey Madan, PRINTER 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 [address], [place] [address] PCP - General Family Medicine 09/13/20 [facility] Goals (unrecognized section and content) Goals may be documented in a n alternate section Ordered Prescriptions (unrec ognized section and content) Prescription Sig Dispensed Refills Start Date End Da te cyclobenzaprine (FLEXERIL) 5 MG tablet Take 1 tablet by mouth 3 times daily as needed for Muscle spasms 30 tablet 04/03/2024 oxyCODONE 5 MG capsuleIndications:Lumba r stenosis with neurogenic claudication Take 1 capsule by mouth every 6 hours as needed for Pain for up to 7 days. Max Daily Amount: 20 mg 28 capsule 04/03/2024 04/10/2024 Scheduled Active and Recently Administ ered Medications (unrecognized section and content) Medication Order 04/01/2024 04/02/2024 04/03/2024 amLODIPine (NORVASC) tablet 5 mg 5 mg, Oral, DAILY, First dose on Thu03/30/24 at 0900, Until Discontinued, Hold for sbp less than 110 0857 (Not Given - Provider: Lore Champagne RN - Reason: Order parameters not met - Comment: 92/56) 1013 (Not Given - Provider: Haydee Logan RN - Reason: Order parameters not met) 0858 (Given - Provider: Natalya Woodruff LPN) bisacodyl (DULCOLAX) EC tablet 10 mg 10 mg, Oral, DAILY, First dose (after last modification) on Thu04/01/24 at 0900, Until Discontinued, Do not crush or break., Post-op 902 (Given - Provider: Lore Champagne RN) 1012 (Given - Provider: Haydee Logan RN) 0858 (Given - Provider: Natalya Woodruff LPN) famotidine (PEPCID) tablet 20 mg 20 mg, Oral, DAILY, First dose (after last modification) on Thu03/30/24 at 0900, Until Discontinued 902 (Given - Provider: Lore Champagne RN) 101 (Given - Provider: Haydee Logan RN) 0858 (Given - Provider: Natalya Woodruff LPN) finasteride (PROSCAR) tablet 5 mg 5 mg, Oral, DAILY, First dose on Thu03/30/24 at 0900, Until Discontinued, Women should not handle crushed or broken finasteride tablets when they are or may potentially be , due to potential risk to the fetus. 09 (Given - Provider: Lore Champagne RN) 101 (Given - Provider: Haydee Logan RN) 0858 (Given - Provider: Natalya Woodruff LPN) losartan (COZAAR) tablet 50 mg 50 mg, Oral, DAILY, First dose on Thu03/29/24 at 2100, Until Discontinued, Hold for sbp less than 110 0858 (Not Given - Provider: Lore Champagne RN - Reason: Order parameters not met - Comment: 92/56) 101 (Not Given - Provider: Haydee Logan RN - Reason: Order parameters not met) 0858 (Given - Provider: Natalya Woodruff LPN) miconazole (MICOTIN) 2 % cream Topical, 2 TIMES DAILY, First dose on Thu03/29/24 at 2100, Apply to dry skin. Substituted for nystatin cream. 900 (Not Given - Provider: Lore Champagne RN - Reason: Patient/family refused)2037 (Not Given - Provider: Sammy Orozco RN - Reason: Patient/family refused) 102 (Not Given - Provider: Haydee Logan RN - Reason: Patient/family refused)2129 (Given - Provider: Sammy Orozco RN) 09 (Not Given - Provider: Natalya Woodruff LPN - Reason: Patient/family refused)2099 (Due) naloxegol (MOVANTIK) tablet 12.5 mg 12.5 mg, Oral, DAILY BEFORE BREAKFAST, First dose on Thu03/31/24 at 1730, Until Discontinued, Administer on an empty stomach at least 1 hour prior to or 2 hours after the first meal of the day. Avoid consumption of grapefruit or grapefruit juice during treatment. 05 (Given - Provider: Lavinia Champagne RN) 06 (Given - Provider: Sammy Orozco RN) 0859 (Given - Provider: Natalya Woodruff LPN) polyethylene glycol (GLYCOLAX) packet 17 g 17 g, Oral, DAILY, First dose on Thu03/29/24 at 2100, Until Discontinued, Stir and dissolve one packet of powder (17 g) in any 4 to 8 ounces of beverage (cold, hot or room temperature) then drink, Post-op 0904 (Given - Provider: Lore Champagne RN) 1012 (Given - Provider: Haydee Logan RN) 0855 (Given - Provider: Natalya Woodruff LPN) sennosides-docusate sodium (SENOKOT-S) 8.6-50 MG tablet 2 tablet 2 tablet, Oral, 2 TIMES DAILY, First dose (after last modification) on Thu03/31/24 at 2100, Until Discontinued, Post-op 09 (Given - Provider: Lore Champagne RN)2029 (Not Given - Provider: Sammy Orozco RN - Reason: Patient/family refused) 101 (Given - Provider: Haydee Logan RN)2117 (Not Given - Provider: Sammy Orozco RN - Reason: Patient/family refused) 0858 (Given - Provider: Natalya Woodruff LPN)2100 (Due) sodium chloride flush 0.9 % injection 5-40 mL 5-40 mL, IntraVENous, EVERY 12 HOURS SCHEDULED (2 times per day), First dose on Thu03/29/24 at 2100, Until Discontinued, For Line Patency: Peripheral IV = 5 mL; Midline or Central Line = 10 mL/lumen. If following IV push medication, administer flush at same rate as the IV push. Flush volume is determined by type of infusion therapy being given. For non-viscous solutions use: Peripheral IV = 5 mL Midline or Central Line = 10 mL/lumen For viscous solutions (i.e. blood components, parenteral nutrition, contrast media, or after obtaining blood sample) use: Peripheral IV = 10 mL Midline or Central Line = 20 mL/lumen, Post-op 0910 (Given - Provider: Lore Champagne RN)2038 (Given - Provider: Sammy Orozco RN) 1016 (Given - Provider: Haydee Logan RN)211 (Given - Provider: Sammy Orozco RN) 0902 (Given - Provider: Natalya Woodruff LPN)2100 (Due) sodium phosphate (FLEET) rectal enema 1 enema (COMPLETED) 1 enema, Rectal, ONCE, 1 dose, On Thu04/01/24 at 1530 1533 (Given - Provider: Lore Champagne RN) tamsulosin (FLOMAX) capsule 0.8 mg 0.8 mg, Oral, DAILY, First dose on Thu03/29/24 at 2200, Until Discontinued, Do not crush or break. Give 30 minutes after a full meal to limit risk of orthostatic hypotension/falls. 1619 (Given - Provider: Lore Champagne RN) 1012 (Not Given - Provider: Haydee Logan RN - Reason: Patient/family refused) 0902 (Given - Provider: Natalya Woodruff LPN) triamcinolone (KENALOG) 0.1 % cream Topical, 2 TIMES DAILY, First dose on Thu03/29/24 at 2100, Apply to dry skin. 0900 (Not Given - Provider: Lore Champagne RN - Reason: Patient/family refused)2037 (Not Given - Provider: Sammy Orozco RN - Reason: Patient/family refused) 1023 (Not Given - Provider: Haydee Logan RN - Reason: Patient/family refused)2116 (Not Given - Provider: Sammy Orozco RN - Reason: Patient/family refused) 0900 (Given - Provider: Natalya Woodruff LPN)2100 (Due) triamterene-hydroCHLORO thiazide (MAXZIDE-25) 37.5-25 MG per tablet 1 tablet 1 tablet, Oral, DAILY, First dose on Thu03/29/24 at 2100, Until Discontinued, Hold for sbp less than 110 0911 (Not Given - Provider: Lore Champagne RN - Reason: Order parameters not met) 1012 (Not Given - Provider: Haydee Logan RN - Reason: Order parameters not met) 0902 (Given - Provider: Natalya Woodruff LPN) PRN Medication Order 04/01/2024 04/02/2024 04/03/2024 0.9 % sodium chloride infusion IntraVENous, at 5-250 mL/hr, PRN, if patient receiving piggyback infusions and maintenance fluids are not ordered OR KVO fluids to protect IV site / prevent frequent line interruptions/ long duration, Starting on Thu03/29/24 at 1958, For piggyback infusion, administer at same rate as piggyback for a total of 25 mL. Enter 25 mL into dose field and piggyback rate into rate field of order. If piggyback is infusing at a rate less than 100 mL/hr, enter 25 mL into dose field and 100 mL/hr into rate field of order. For KVO fluids, enter rate of 20 mL/hr or less into rate field of order., Post-op 1207 (Stopped - Provider: Natalya Woodruff LPN) 0.9 % sodium chloride infusion IntraVENous, at 240 mL/hr, Administer over 10 Minutes, PRN, blood administration, Starting on 04/02/24 at 0800, For 1 dose, For use in priming line prior to transfusion (prime via gravity) and flush line post transfusion ONLY. Discontinue once line has been cleared of remaining blood product. 1208 (Stopped - Provider: Natalya Woodruff LPN) acetaminophen (TYLENOL) tablet 650 mg 650 mg, Oral, EVERY 6 HOURS PRN, Starting on Thu03/29/24 at 195, Until Discontinued, Pain Mild (1-3), Fever, Maximum dose of acetaminophen is 4000 mg from all sources in 24 hours., Post-op 1531 (Given - Provider: Lore Champagne RN) 1012 (Given - Provider: Haydee Logan RN) bisacodyl (DULCOLAX) suppository 10 mg 10 mg, Rectal, DAILY PRN, Starting on Thu03/29/24 at 1958, Until Discontinued, Constipation, Second line therapy for constipation, After 24 hours, if no result from first line PRN therapy, give second line therapy in combination with first line therapy., Post-op cyclobenzaprine (FLEXERIL) tablet 10 mg 10 mg, Oral, 3 TIMES DAILY PRN, Starting on Thu03/29/24 at 1832, Until Discontinued, Muscle spasms, Post-op 09 (Given - Provider: Lore Champagne RN) 09 (Given - Provider: Natalya Woodruff LPN) diclofenac sodium (VOLTAREN) 1 % gel 2 g 2 g, Topical, 4 TIMES DAILY PRN, Starting on Nicole 03/31/24 at 1851, Until Discontinued, Pain, Apply to neck/shoulders. fluticasone (FLONASE) 50 MCG/ACT nasal spray 1 spray 1 spray, Each Nostril, DAILY PRN, Starting on Thu03/29/24 at 2006, Until Discontinued, Rhinitis, Pharmacists should automatically interchange the frequency from daily or QHS to Daily PRN when Flonase is ordered from a patient's home medication list. If it is not ordered from the home medication list, then do not change the ordered frequency. magnesium hydroxide (MILK OF MAGNESIA) 400 MG/5ML suspension 30 mL 30 mL, Oral, DAILY PRN, Starting on Thu03/29/24 at 1957, Until Discontinued, Constipation, First line therapy for constipation., Post-op ondansetron (ZOFRAN) injection 4 mg(Linked Group 1) 4 mg, IntraVENous, EVERY 6 HOURS PRN, Starting on Thu03/29/24 at 1957, Until Discontinued, Nausea, Vomiting, Administer if oral route cannot be used., Post-op ondansetron (ZOFRAN-ODT) disintegrating tablet 4 mg(Linked Group 1) 4 mg, Oral, EVERY 8 HOURS PRN, Starting on Thu03/29/24 at 1957, Until Discontinued, Nausea, Vomiting, Post-op oxyCODONE (ROXICODONE) immediate release tablet 10 mg(Linked Group 2) 10 mg, Oral, EVERY 6 HOURS PRN, Starting on Thu03/29/24 at 183, Until Discontinued, Pain Severe (7-10), Post-op 0349 (Given - Provider: Lavinia Champagne RN)1531 (See Alternative - Provider: Lore Champagne RN)2041 (See Alternative - Provider: Sammy Orozco RN) 0642 (Given - Provider: Sammy Orozco RN)1554 (Given - Provider: Haydee Logan RN)2215 (Given - Provider: Sammy Orozco RN) 0635 (Given - Provider: Sammy Orozco RN)1348 (Given - Provider: Natalya Woodruff LPN) oxyCODONE (ROXICODONE) immediate release tablet 5 mg(Linked Group 2) 5 mg, Oral, EVERY 6 HOURS PRN, Starting on Thu03/29/24 at 1832, Until Discontinued, Pain Moderate (4-6), Post-op 0349 (See Alternative - Provider: Lavinia Champagne RN)1531 (Given - Provider: Lore Champagne, RN)2041 (Given - Provider: Sammy Orozco, RN) 0642 (See Alternative - Provider: Sammy Orozco RN)1554 (See Alternative - Provider: Haydee Logan, ELY)2215 (See Alternative - Provider: Sammy Orozco, ELY) 0635 (See Alternative - Provider: Sammy Orozco, ELY)1348 (See Alternative - Provider: Natalya Woodruff LPN) polyvinyl alcohol (LIQUIFILM TEARS) 1.4 % ophthalmic solution 2 drop 2 drop, Both Eyes, PRN, Starting on Thu03/29/24 at 1957, Until Discontinued, Dry Eyes sodium chloride flush 0.9 % injection 5-40 mL 5-40 mL, IntraVENous, PRN, Starting on Thu03/29/24 at 1957, Until Discontinued, Line Care, After every IV line use, For Line Patency: Peripheral IV = 5 mL; Midline or Central Line = 10 mL/lumen. If following IV push medication, administer flush at same rate as the IV push. Flush volume is determined by type of infusion therapy being given. For non-viscous solutions use: Peripheral IV = 5 mL Midline or Central Line = 10 mL/lumen For viscous solutions (i.e. blood components, parenteral nutrition, contrast media, or after obtaining blood sample) use: Peripheral IV = 10 mL Midline or Central Line = 20 mL/lumen, Post-op Linked Groups Order Group 1: ondansetron (ZOFRAN-ODT) disintegrating tablet 4 mgJump to med 4 mg, Oral, EVERY 8 HOURS PRN, Starting on Thu03/29/24 at 1957, Until Discontinued, Nausea, Vomiting, Post-op Or ondansetron (ZOFRAN) injection 4 mgJump to med 4 mg, IntraVENous, EVERY 6 HOURS PRN, Starting on Thu03/29/24 at 1957, Until Discontinued, Nausea, Vomiting, Administer if oral route cannot be used., Post- op Group 2: oxyCODONE (ROXICODONE) immediate release tablet 5 mgJump to med 5 mg, Oral, EVERY 6 HOURS PRN, Starting on Thu03/29/24 at 1832, Until Discontinued, Pain Moderate (4-6), Post-op Or oxyCODONE (ROXICODONE) immediate release tablet 10 mgJump to med 10 mg, Oral, EVERY 6 HOURS PRN, Starting on Thu03/29/24 at 1832, Until Discontinued, Pain Severe (7-10), Post-op FOR RECORDS PERTAINING TO PATIENTS WHO ARE [...] BE BASED ON THE PRIMARY CLINICAL RECORDS. [facility]. provides no warranty or guarantee of the accuracy or completeness of information in this document.
== END 2024-05-13 10:31 | disposition home or self-care (01) ==
LOC: EC 10:30
PROVIDERS: PCP Nurse Practitioner; Visit Provider Orthopaedic Surgery Orthopaedic Surgery of the Spine
DX: M79.89 Other specified soft tissue disorders (principal); Z47.89 Encounter for other orthopedic aftercare
CPT/HCPCS: 72100; 93970

== ENCOUNTER 2024-05-13 11:48 | Outpatient (OUT) | payer MEDICARE, BC, SELFPAY ==
--- OUTSIDE RECORDS SUMMARY | 2024-05-13 12:03 | XMS_ITS | CCD ---
Author Organization [facility] Care Team Providers Care Helmet Hat Sweatband Puncher Name Role Phone Jared Petty Primary Care Provider Willian Nuñez Attending Provider Willian Nuñez Unavailable Lynn Garcia Unavailable Cristofer Grey Unavailable LINDA Patino Primary Care Provider MD Lynn Garcia Attending Provider MD Willian Nuñez Attending Provider LINDA Patino Primary Care Provider MD Willian Nuñez Attending Provider [phone] LINDA Patino Primary Care Provider MD Willian [...] Care Provider MD Angel Carbajal Attending Provider [phone] Sukumar ASPHALT PAVER-INSOLVENCY PRACTITIONER, Roberta A Primary Care Provi chong Hakan NDJacquelinericci Primary Care Provider [phone] HERB CH Consulting Unavailable [facility]AK[facility], [facility] Primary Care Unavailable MONA, SELVON [...] GI Disturbance, Other (See Comments), GI intolerance [facility] (14 sources) NSAIDS (Non-Steroidal Anti-Inflamma Propensity to adverse reactions 1 GI bleed [facility] (20 sources) Anti-Inflammato ry Enzyme Drug allergy 4 Unknown, Unknown Reaction [facility] (20 sources) Naproxen; Translations: [NAPROXEN] Drug Allergy 9 Other (See Comments), Unknown [facility] Medications Current Medications Medication Drug Class(es) Dates [...] days. 20 tablet 11/25/2023 11/30/2023 Active nystatin 554827 unt/ml topical cream (20 sources) Polyene Antifungal Start: 10-31-2022 End: 11-10-2023 nystatin (MYCOSTATIN) cream Indications: Dermatitis apply 1 APPLICATION topically to affected area if needed for DERMATITIS 30 g 2 11/10/2023 Active Start: 06-17-2021 Nystatin Activ e 1 APPLIC TOPICAL As Directed June 17, 2021 12:00am nystatin (Mycost atin) cream Apply topically 2 (two) times a day. Active Nystatin 780932 UNIT/GM 1 application Externally Twice a day Active Nystatin 612304 UNIT/GM 1 application Externally Twice a day [...] times a Week Active polyethylene glycol 3350 91176 mg powder for oral solution (1 source) [...] 9:32am docusate sodium 50 mg / sennosides, group home 8.6 mg oral tablet (14 sources) Start: [...] Anion gap [Moles/Vol] 6 mmol/L Normal 5-15 [facility] Comment on above: Performed By: #### C BC, UPCR, CMP, 55018-4, 2777-1, 3084-1, 2731-8, 2132-9, 65123-2 #### [facility] ([id number]) [address], [address] [place] [address] Calcium [Mass/Vol] 9.3 mg/dL Normal 8.5-10.5 [facility] Comment on above: Performed By: #### C BC, UPCR, CMP, 07899-6, 2777-1, 3084-1, 2731-8, 2132-9, 83654-7 #### [facility] ([id number]) [address], [address] [place] [address] Chloride [Moles/Vol] 106 mmol/L Normal 98-109 [facility] Comment on above: Performed By: #### C BC, UPCR, CMP, 67005-4, 2777-1, 3084-1, 2731-8, 2132-9, 18662-0 #### [facility] ([id number]) [address], [address] [place] [address] CO2 [Moles/Vol] 23 mmol/L Normal 22-32 [facility] Comment on above: Performed By: #### C BC, UPCR, CMP, 87650-1, 2777-1, 3084-1, 2731-8, 2131-9, 04532-9 #### [facility] ([id number]) [address], [address] [place] [address] Creatinine [Mass/Vol] 1.42 mg/dL High 0.70-1.20 [facility] Comment on above: Result Comment: METH OD TRACEABLE TO IDMS STANDARD Performed By: #### C BC, UPCR, CMP, 25398-9, 7-1, 3084-1, 2731-8, 2131-9, 30280-0 #### [facility] ([id number]) [address], [address] [place] [address] GFR/1.73 sq M.predicted among non-blacks MDRD (S/P/Bld) [Vol rate/Area] 49 mL/min/{1.73_m2} Low >59 [facility] Comment on above: Result Comment: Reported eGFR is based on the CKD-EPI 2020 equation that does not use a race coefficient. Performed By: #### C BC, UPCR, CMP, 70759-7, 2776-, 3083-1, 2730-8, 9, 34013-4 #### [facility] ([id number]) [address], [address] [place] [address] Glucose [Mass/Vol] 101 mg/dL High 65-99 [facility] Comment on above: Performed By: #### C BC, UPCR, CMP, 86403-7, 2776-, 3084-1, 2731-8, 2131-9, 36384-2 #### [facility] ([id number]) [address], [address] [place] [address] Potassium [Moles/Vol] 4.2 mmol/L Normal 3.5-5.0 [facility] Comment on above: Performed By: #### C BC, UPCR, CMP, 96624-3, 2776-, 3084-1, 273-8, 2131-9, 41386-2 #### [facility] ([id number]) [address], [address] [place] [address] Sodium [Moles/Vol] 135 mmol/L Normal 134-146 [facility] Comment on above: Performed By: #### C BC, UPCR, CMP, 02633-5, 7-1, 3084-1, 2730-8, 2131-9, 74476-5 #### [facility] ([id number]) [address], [address] [place] [address] Urea nitrogen [Mass/Vol] 22 mg/dL Normal 5-27 [facility] Comment on above: Performed By: #### C BC, UPCR, CMP, 42519-2, 7-1, 3084-1, 2730-8, 2131-9, 46867-7 #### [facility] ([id number]) [address], [address] [place] [address] CBC AND AUTO DIFFon 04-29- 25 ABSOLUTE BASOPHIL 0.0 X10E9/L Normal 0.0-0.2 [facility] Comment on above: Performed By: #### C BC, UPCR, CMP, 78753-4, 7-1, 3084-1, 2730-8, 2131-9, 42767-7 #### [facility] ([id number]) [address], [address] [place] [address] ABSOLUTE NEUTROPHIL 2.8 X10E9/L Normal 1.5-6.6 [facility] Comment on above: Performed By: #### C BC, UPCR, CMP, 26198-3, 7-1, 3084-1, 2730-8, 2131-9, 92513-0 #### [facility] ([id number]) [address], [address] [place] [address] Basophils/100 WBC (Bld) 0.6 % Normal [facility] Comment on above: Performed By: #### C BC, UPCR, CMP, 13642-2, 2777-1, 3084-1, 2731-8, 2132-9, 63436-4 #### [facility] ([id number]) [address], [address] [place] [address] Eosinophils (Bld) [#/Vol] 0.3 10*3/uL Normal 0.0-0.4 [facility] Comment on above: Performed By: #### C BC, UPCR, CMP, 38763-6, 2777-1, 3084-1, 2731-8, 213-9, 03531-2 #### [facility] ([id number]) [address], [address] [place] [address] Eosinophils/100 WBC (Bld) 5.3 % Normal [facility] Comment on above: Performed By: #### C BC, UPCR, CMP, 57837-4, 2777-1, 3084-1, 2731-8, 2131-9, 15187-4 #### [facility] ([id number]) [address], [address] [place] [address] Erythrocyte distribution width (RBC) [Ratio] 14.3 % Normal 11.5-15.0 [facility] Comment on above: Performed By: #### C BC, UPCR, CMP, 39375-1, 2777-1, 3084-1, 2731-8, 2131-9, 28775-9 #### [facility] ([id number]) [address], [address] [place] [address] Hematocrit (Bld) [Volume fraction] 29.2 % Low 39-49 [facility] Comment on above: Performed By: #### C BC, UPCR, CMP, 70632-8, 2777-1, 3084-1, 2731-8, 2132-9, 76585-7 #### [facility] ([id number]) [address], [address] [place] [address] Hemoglobin (Bld) [Mass/Vol] 10.0 g/dL Low 13.0-17.0 [facility] Comment on above: Performed By: #### C BC, UPCR, CMP, 53367-1, 2777-1, 3084-1, 2731-8, 2132-9, 48980-8 #### [facility] ([id number]) [address], [address] [place] [address] Lymphocytes (Bld) [#/Vol] 1.2 10*3/uL Normal 1.0-3.5 [facility] Comment on above: Performed By: #### C BC, UPCR, CMP, 75611-6, 2777-1, 3084-1, 2731-8, 2132-9, 15476-2 #### [facility] ([id number]) [address], [address] [place] [address] Lymphocytes/100 WBC (Bld) 24.6 % Normal [facility] Comment on above: Performed By: #### C BC, UPCR, CMP, 48073-7, 2777-1, 3084-1, 2731-8, 2132-9, 52060-8 #### [facility] ([id number]) [address], [address] [place] [address] MCH (RBC) [Entitic mass] 30.3 pg Normal 27-34 [facility] Comment on above: Performed By: #### C BC, UPCR, CMP, 46253-5, 2777-1, 3084-1, 2731-8, 2132-9, 05755-6 #### [facility] ([id number]) [address], [address] [place] [address] MCHC (RBC) [Mass/Vol] 34.4 g/dL Normal 32-36 [facility] Comment on above: Performed By: #### C BC, UPCR, CMP, 14182-9, 2777-1, 3084-1, 2731-8, 2132-9, 31534-3 #### [facility] ([id number]) [address], [address] [place] [address] MCV (RBC) [Entitic vol] 88 fL Normal 80-100 [facility] Comment on above: Performed By: #### C BC, UPCR, CMP, 46457-9, 2777-1, 3084-1, 2731-8, 2132-9, 71834-8 #### [facility] ([id number]) [address], [address] [place] [address] Monocytes (Bld) [#/Vol] 0.5 10*3/uL Normal 0-0.9 [facility] Comment on above: Performed By: #### C BC, UPCR, CMP, 15217-1, 7-1, 3084-1, 2731-8, 2-9, 91081-2 #### [facility] ([id number]) [address], [address] [place] [address] Monocytes/100 WBC (Bld) 10.5 % Normal [facility] Comment on above: Performed By: #### C BC, UPCR, CMP, 01513-2, 2777-1, 3084-1, 2731-8, 2132-9, 96304-3 #### [facility] ([id number]) [address], [address] [place] [address] Neutrophils/100 WBC (Bld) 59.0 % Normal [facility] Comment on above: Performed By: #### C BC, UPCR, CMP, 52353-9, 2777-1, 3084-1, 2731-8, 2132-9, 12460-1 #### [facility] ([id number]) [address], [address] [place] [address] Platelet mean volume (Bld) [Entitic vol] 8.1 fL Normal 7-12 [facility] Comment on above: Performed By: #### C BC, UPCR, CMP, 99682-3, 2777-1, 3084-1, 2731-8, 2132-9, 84520-9 #### [facility] ([id number]) [address], [address] [place] [address] Platelets (Bld) [#/Vol] 246 10*3/uL Normal 150-450 [facility] Comment on above: Performed By: #### C BC, UPCR, CMP, 01222-0, 2777-1, 3084-1, 2731-8, 213-9, 95489-9 #### [facility] ([id number]) [address], [address] [place] [address] RBC COUNT 3.31 X10E12/L Low 4.10-5.70 [facility] Comment on above: Performed By: #### C BC, UPCR, CMP, 21732-0, 2777-1, 3084-1, 2731-8, 2131-9, 48247-1 #### [facility] ([id number]) [address], [address] [place] [address] WBC (Bld) [#/Vol] 4.8 10*3/uL Normal 4.0-11.0 [facility] Comment on above: Performed By: #### C BC, UPCR, CMP, 45972-2, 2777-1, 3084-1, 2731-8, 2132-9, 32986-4 #### [facility] ([id number]) [address], [address] [place] [address] COMPREHENSIVE METABOLIC PANE Dima 04-29-2024 Albumin [Mass/Vol] 3.6 g/dL Normal 3.2-5.3 [facility] Comment on above: Performed By: #### C BC, UPCR, CMP, 83700-1, 2777-1, 3084-1, 2731-8, 2132-9, 70520-4 #### [facility] ([id number]) [address], [address] [place] [address] ALP [Catalytic activity/Vol] 99 U/L Normal 39-130 [facility] Comment on above: Performed By: #### C BC, UPCR, CMP, 92620-6, 2777-1, 3084-1, 2731-8, 2132-9, 47766-4 #### [facility] ([id number]) [address], [address] [place] [address] ALT [Catalytic activity/Vol] 18 U/L Normal 0-40 [facility] Comment on above: Performed By: #### C BC, UPCR, CMP, 02988-5, 2777-1, 3084-1, 2731-8, 2-9, 29313-3 #### [facility] ([id number]) [address], [address] [place] [address] Anion gap [Moles/Vol] 8 mmol/L Normal 5-15 [facility] Comment on above: Performed By: #### C BC, UPCR, CMP, 89457-3, 2777-1, 3084-1, 2731-8, 2132-9, 23037-6 #### [facility] ([id number]) [address], [address] [place] [address] AST [Catalytic activity/Vol] 19 U/L Normal 0-41 [facility] Comment on above: Performed By: #### C BC, UPCR, CMP, 08863-6, 2777-1, 3084-1, 2731-8, 2132-9, 22552-1 #### [facility] ([id number]) [address], [address] [place] [address] Bilirubin [Mass/Vol] 0.6 mg/dL Normal 0.3-1.2 [facility] Comment on above: Performed By: #### C BC, UPCR, CMP, 00938-6, 2777-1, 3084-1, 2731-8, 2132-9, 35494-7 #### [facility] ([id number]) [address], [address] [place] [address] Calcium [Mass/Vol] 9.0 mg/dL Normal 8.5-10.5 [facility] Comment on above: Performed By: #### C BC, UPCR, CMP, 43353-9, 2777-1, 3084-1, 2731-8, 2132-9, 35897-6 #### [facility] ([id number]) [address], [address] [place] [address] Chloride [Moles/Vol] 104 mmol/L Normal 98-109 [facility] Comment on above: Performed By: #### C BC, UPCR, CMP, 80909-6, 2777-1, 3084-1, 2731-8, 2-9, 72938-5 #### [facility] ([id number]) [address], [address] [place] [address] CO2 [Moles/Vol] 24 mmol/L Normal 22-32 [facility] Comment on above: Performed By: #### C BC, UPCR, CMP, 93940-8, 2777-1, 3084-1, 2731-8, 2132-9, 24751-2 #### [facility] ([id number]) [address], [address] [place] [address] Creatinine [Mass/Vol] 1.62 mg/dL High 0.70-1.20 [facility] Comment on above: Result Comment: METH OD TRACEABLE TO IDMS STANDARD Performed By: #### C BC, UPCR, CMP, 15676-8, 2777-1, 3084-1, 2731-8, 2132-9, 14557-3 #### [facility] ([id number]) [address], [address] [place] [address] GFR/1.73 sq M.predicted among non-blacks MDRD (S/P/Bld) [Vol rate/Area] 42 mL/min/{1.73_m2} Low >59 [facility] Comment on above: Result Comment: Reported eGFR is based on the CKD-EPI 2020 equation that does not use a race coefficient. Performed By: #### C BC, UPCR, CMP, 30281-3, 2777-1, 3084-1, 2731-8, 2132-9, 30227-0 #### [facility] ([id number]) [address] [place] [address] Glucose [Mass/Vol] 93 mg/dL Normal 65-99 [facility] Comment on above: Performed By: #### C BC, UPCR, CMP, 71935-7, 2777-1, 3084-1, 2731-8, 2-9, 16375-5 #### [facility] ([id number]) [address] [place] [address] Potassium [Moles/Vol] 3.9 mmol/L Normal 3.5-5.0 [facility] Comment on above: Performed By: #### C BC, UPCR, CMP, 53802-8, 2777-1, 3084-1, 2731-8, 2132-9, 94669-8 #### [facility] ([id number]) [address] [place] [address] Protein [Mass/Vol] 6.3 g/dL Normal 6.0-8.0 [facility] Comment on above: Performed By: #### C BC, UPCR, CMP, 04054-7, 2777-1, 3084-1, 2731-8, 2132-9, 96258-9 #### [facility] ([id number]) [address] [place] [address] Sodium [Moles/Vol] 136 mmol/L Normal 134-146 [facility] Comment on above: Performed By: #### C BC, UPCR, CMP, 41937-3, 2777-1, 3084-1, 2731-8, 2132-9, 30761-8 #### [facility] ([id number]) [address], [address] [place] [address] Urea nitrogen [Mass/Vol] 28 mg/dL High 5-27 [facility] Comment on above: Performed By: #### C BC, UPCR, CMP, 64191-9, 2777-1, 3084-1, 2731-8, 2132-9, 43975-7 #### [facility] ([id number]) [address], [address] [place] [address] Natriuretic peptide B [Mass/ Vol]on 04-29-2024 Natriuretic peptide B (Bld) [Mass/Vol] 28 pg/mL Normal <100.0 [facility] Comment on above: Performed By: #### C BC, UPCR, CMP, 77015-0, 2777-1, 3084-1, 2731-8, 2132-9, 80408-7 #### [facility] ([id number]) [address] [place] [address] ANION GAPon 04-03-2024 Anion gap [Moles/Vol] 13.0 mmol/L Normal 8.0-16.0 [facility] Comment on above: Result Comment: ANIO N GAP = Sodium -(Chloride + CO2) Performed By: #### H H, ANION, EGFR1, BMP #### [facility] [address] [place] [address] Anion Gapon 04-03-2024 Anion gap [Moles/Vol] 13.0 mmol/L 8.0 - 16.0 meq/L [facility] Comment on above: ANION GAP = Sodium - (Chloride + CO2) Performed at [facility] [address] [place] [address] BASIC METABOL PANELon 2024 Calcium [Mass/Vol] 8.6 mg/dL Normal 8.5-10.5 [facility] Comment on above: Performed By: #### H H, ANION, EGFR1, BMP #### [employer] [address] [place] [address] Chloride [Moles/Vol] 104 mmol/L Normal 98-111 [facility] Comment on above: Performed By: #### H H, ANION, EGFR1, BMP #### [facility] [address] [place] [address] CO2 [Moles/Vol] 23 mmol/L Normal 23-33 [facility] Comment on above: Performed By: #### H H, ANION, EGFR1, BMP #### [employer] [address] [place] [address] Creatinine [Mass/Vol] 1.2 mg/dL Normal 0.4-1.2 [facility] Comment on above: Performed By: #### H H, ANION, EGFR1, BMP #### [facility] [address] [place] [address] Glucose [Mass/Vol] 101 mg/dL Normal 70-108 [facility] Comment on above: Performed By: #### H H, ANION, EGFR1, BMP #### [facility] [address] [place] [address] Potassium [Moles/Vol] 3.8 mmol/L Normal 3.5-5.2 [facility] Comment on above: Performed By: #### H H, ANION, EGFR1, BMP #### [employer] [address] [place] [address] Sodium [Moles/Vol] 140 mmol/L Normal 135-145 [facility] Comment on above: Performed By: #### H H, ANION, EGFR1, BMP #### [facility] [address] [place] [address] Urea nitrogen [Mass/Vol] 28 mg/dL High 7-22 [facility] Comment on above: Performed By: #### H H, ANION, EGFR1, BMP #### [facility] [address] [place] [address] Basic metabolic 2000 panelon 04-03-2024 Calcium [Mass/Vol] 8.6 mg/dL 8.5 - 10. 5 mg/dL [facility] Comment on above: Performed at [facility] [address] [place] [address] Chloride [Moles/Vol] 104 mmol/L 98 - 11 1 meq/L [facility] CO2 [Moles/Vol] 23 mmol/L 23 - 33 meq/L [facility] Creatinine [Mass/Vol] 1.2 mg/dL 0.4 - 1.2 mg/dL [facility] Glucose [Mass/Vol] 101 mg/dL 70 - 108 mg/dL [facility] Interpretation and review of laboratory results Abnormal [facility] Potassium [Moles/Vol] 3.8 mmol/L 3.5 - 5.2 meq/L [facility] Sodium [Moles/Vol] 140 mmol/L 135 - 145 meq/L [facility] Urea nitrogen [Mass/Vol] 28 mg/dL High 7 - 22 mg/dL [facility] GFR, ESTIMATEDon 04-03-2024 GFR/1.73 sq M.predicted MDRD (S/P/Bld) [Vol rate/Area] 60 mL/min/{1.73_m2} Normal >60 [facility] Comment on above: Pediatric calculator link [...] that affects renal tubular secretion. Performed at [facility] [address] [place] [address] Result Comment: Sinan atric calculator link [email or web address].org/professionals/kdoqi/gfr_[email or web address] [...] #### H H, ANION, EGFR1, BMP #### [place] [address] HGB,HCTon 04-03-2024 Hematocrit (Bld) [Volume fraction] 28.4 % Low 42.0-52.0 [facility] Comment on above: Performed at [facility] [address] [place] [address] Performed By: #### H H, EGFR1, ANION, BMP #### [facility] [employer] [address] [place] [address] Hemoglobin (Bld) [Mass/Vol] 9.5 g/dL Low 14.0-18.0 [facility] Comment on above: Performed By: #### H H, EGFR1, ANION, BMP #### [facility] [employer] [address] [place] [address] Hematocrit (Bld) [Volume fraction] 29.6 % Low 42.0-52.0 [facility] Comment on above: Performed By: #### H H, ANION, EGFR1, BMP #### [facility] [employer] [address] [place] [address] Hemoglobin (Bld) [Mass/Vol] 9.7 g/dL Low 14.0-18.0 [facility] Comment on above: Performed By: #### H H, ANION, EGFR1, BMP #### [facility] [employer] [address] [place] [address] Hemoglobin and Hematocrit pa suzanne (Bld)on 04-03-2024 Interpretation and review of laboratory results Abnormal [facility] Hematocrit (Bld) [Volume fraction] 29.6 % Low 42.0 - 52.0 % [facility] Comment on above: Performed at [facility] [address] [place] [address] Hemoglobin (Bld) [Mass/Vol] 9.7 g/dL Low [facility] Interpretation and review of laboratory results Abnormal [facility] No Panel Informationon 04-03 [facility] ABO RHon 04-02-2024 ABO A Normal [facility] Comment on above: Performed By: #### H H, EGFR1, ANION, BMP #### [facility] [address] [place] [address] Rh Nom (Bld) Positive Normal [facility] Comment on above: Performed at [facility] [address] [place] [address] Performed By: #### H H, EGFR1, ANION, BMP #### [facility] [employer] [address] [place] [address] ABO and Rh group Nom (Bld)on 04-02-2024 ABO group Nom (Bld) A [facility] ANION GAPon 04-02-2024 Anion gap [Moles/Vol] 12.0 mmol/L Normal 8.0-16.0 [facility] Comment on above: Result Comment: ANIO N GAP = Sodium -(Chloride + CO2) Performed By: #### H H, EGFR1, ANION, BMP #### [facility] [address] [place] [address] ANTIBODY SCREENon 04-02-2024 Indirect antiglobulin test.IgG specific reagent Ql Negative [facility] Comment on above: Performed at [facility] [address] [place] [address] Anion Gapon 04-02-2024 Anion gap [Moles/Vol] 12.0 mmol/L 8.0 - 16.0 meq/L [facility] Comment on above: ANION GAP = Sodium - (Chloride + CO2) Performed at [facility] [address] [place] [address] BASIC METABOL PANELon 2024 Calcium [Mass/Vol] 8.6 mg/dL Normal 8.5-10.5 [facility] Comment on above: Performed By: #### H H, EGFR1, ANION, BMP #### [facility] [address] [place] [id number] Chloride [Moles/Vol] 106 mmol/L Normal 98-111 [facility] Comment on above: Performed By: #### H H, EGFR1, ANION, BMP #### [facility] [address] [place] [address] CO2 [Moles/Vol] 23 mmol/L Normal 23-33 [facility] Comment on above: Performed By: #### H H, EGFR1, ANION, BMP #### [facility] [address] [place] [address] Creatinine [Mass/Vol] 1.4 mg/dL High 0.4-1.2 [facility] Comment on above: Performed By: #### H H, EGFR1, ANION, BMP #### [facility] [address] [place] [address] Glucose [Mass/Vol] 117 mg/dL High 70-108 [facility] Comment on above: Performed By: #### H H, EGFR1, ANION, BMP #### [employer] [address] [place] [id number] Potassium [Moles/Vol] 3.7 mmol/L Normal 3.5-5.2 [facility] Comment on above: Performed By: #### H H, EGFR1, ANION, BMP #### [facility] [address] [place] [address] Sodium [Moles/Vol] 141 mmol/L Normal 135-145 [facility] Comment on above: Performed By: #### H H, EGFR1, ANION, BMP #### [facility] [address] [place] [id number] Urea nitrogen [Mass/Vol] 34 mg/dL High 7-22 [facility] Comment on above: Performed By: #### H H, EGFR1, ANION, BMP #### [facility] [address] [place] [address] Basic metabolic 2000 panelon 04-02-2024 Calcium [Mass/Vol] 8.6 mg/dL 8.5 - 10. 5 mg/dL [facility] Comment on above: Performed at [facility] [address] [place] [address] Chloride [Moles/Vol] 106 mmol/L 98 - 11 1 meq/L [facility] CO2 [Moles/Vol] 23 mmol/L 23 - 33 meq/L [facility] Creatinine [Mass/Vol] 1.4 mg/dL High 0.4 - 1.2 mg/dL [facility] Glucose [Mass/Vol] 117 mg/dL High 70 - 108 mg/dL [facility] Interpretation and review of laboratory results Abnormal [facility] Potassium [Moles/Vol] 3.7 mmol/L 3.5 - 5.2 meq/L [facility] Sodium [Moles/Vol] 141 mmol/L 135 - 145 meq/L [facility] Urea nitrogen [Mass/Vol] 34 mg/dL High 7 - 22 mg/dL [facility] GEL INDIRECT COOMBSon 2024 GEL INDIRECT CATHY Negative Normal [facility] Comment on above: Performed By: #### H H, EGFR1, ANION, BMP #### [facility] [address] [place] [address] GFR, ESTIMATEDon 04-02-2024 GFR/1.73 sq M.predicted MDRD (S/P/Bld) [Vol rate/Area] 49 mL/min/{1.73_m2} Abnormal >60 [facility] Comment on above: Pediatric calculator link [...] that affects renal tubular secretion. Performed at [facility] [address] [place] [address] Result Comment: Pedi atric calculator link https://www.kidney.org/professionals/kdoqi/gfr_calculatorped [...] #### H H, EGFR1, ANION, BMP #### [facility] [address] [place] [address] Glomerular Filtration Rate, Estimatedon 04-02-2024 Interpretation and review of laboratory results Abnormal [facility] HGB,HCTon 04-02-2024 Hematocrit (Bld) [Volume fraction] 20.7 % Critically low 42.0-52.0 [facility] Comment on above: Performed By: #### H H, EGFR1, ANION, BMP #### [facility] [address] [place] [address] Hemoglobin (Bld) [Mass/Vol] 6.9 g/dL Critically low 14.0-18.0 [facility] Comment on above: Performed By: #### H H, EGFR1, ANION, BMP #### [facility] [address] [place] [address] Hemoglobin and Hematocrit pa suzanne (Bld)on 04-02-2024 Hematocrit (Bld) [Volume fraction] 20.7 % Critically low 42.0 - 52.0 % [facility] Comment on above: Performed at [facility] [address] [place] [address] Hemoglobin (Bld) [Mass/Vol] 6.9 g/dL Critically low [facility] Interpretation and review of laboratory results Abnormal [facility] Indirect antiglobulin test.I gG specific reagent Qlon 04-02-2024 [facility] LEUKO-REDUCED RCon -1 LEUKOREDUCED RED CELLS Normal [facility] Comment on above: Result Comment: [id number] transfused [id number] transfused Performed By: #### H H, EGFR1, ANION, BMP #### [facility] [address] [place] [address] No Panel Informationon 04-02 [facility] ANION GAPon 04-01-2024 Anion gap [Moles/Vol] 9.0 mmol/L Normal 8.0-16.0 [facility] Comment on above: Result Comment: ANIO N GAP = Sodium -(Chloride + CO2) Performed By: #### H H, EGFR1, ANION, BMP #### [facility] [address] [place] [address] Anion Gapon 04-01-2024 Anion gap [Moles/Vol] 9.0 mmol/L 8.0 - 16.0 meq/L [facility] Comment on above: ANION GAP = Sodium - (Chloride + CO2) Performed at [facility] [address] [place] [address] BASIC METABOL PANELon 2024 Calcium [Mass/Vol] 8.4 mg/dL Low 8.5-10.5 [facility] Comment on above: Performed By: #### H H, EGFR1, ANION, BMP #### [facility] [address] [address] Chloride [Moles/Vol] 104 mmol/L Normal 98-111 [facility] Comment on above: Performed By: #### H H, EGFR1, ANION, BMP #### [facility] [address] [place] [address] CO2 [Moles/Vol] 23 mmol/L Normal 23-33 [facility] Comment on above: Performed By: #### H H, EGFR1, ANION, BMP #### [facility] [address] [address] Creatinine [Mass/Vol] 1.6 mg/dL High 0.4-1.2 [facility] Comment on above: Performed By: #### H H, EGFR1, ANION, BMP #### [employer] [address] [place] [address] Glucose [Mass/Vol] 109 mg/dL High 70-108 [facility] Comment on above: Performed By: #### H H, EGFR1, ANION, BMP #### [facility] [employer] [address] [place] [address] Potassium [Moles/Vol] 4.3 mmol/L Normal 3.5-5.2 [facility] Comment on above: Performed By: #### H H, EGFR1, ANION, BMP #### [facility] [address] [place] [address] Sodium [Moles/Vol] 136 mmol/L Normal 135-145 [facility] Comment on above: Performed By: #### H H, EGFR1, ANION, BMP #### [facility] [address] [place] [address] Urea nitrogen [Mass/Vol] 36 mg/dL High 7-22 [facility] Comment on above: Performed By: #### H H, EGFR1, ANION, BMP #### [facility] [address] [place] [address] Basic metabolic 2000 panelon 04-01-2024 Calcium [Mass/Vol] 8.4 mg/dL Low 8.5 - 10. 5 mg/dL [facility] Comment on above: Performed at [facility] ion [facility] [address] [place] [address] Chloride [Moles/Vol] 104 mmol/L 98 - 11 1 meq/L [facility] [employer] CO2 [Moles/Vol] 23 mmol/L 23 - 33 meq/L [facility] [employer] Creatinine [Mass/Vol] 1.6 mg/dL High 0.4 - 1.2 mg/dL [facility] [employer] Glucose [Mass/Vol] 109 mg/dL High 70 - 108 mg/dL [facility] [employer] Potassium [Moles/Vol] 4.3 mmol/L 3.5 - 5.2 meq/L [facility] [employer] Sodium [Moles/Vol] 136 mmol/L 135 - 145 meq/L [facility] [employer] Urea nitrogen [Mass/Vol] 36 mg/dL High 7 - 22 [facility], [facility] 04-01-2024 GFR/1.73 sq M.predicted MDRD (S/P/Bld) [Vol rate/Area] 42 mL/min/{1.73_m2} Abnormal >60 [employer] Comment on above: Pediatric calculator link https://www.kidney.org/professionals/kdoqi/gfr_calculatorped [...] that affects renal tubular secretion. [place] [address] Result Comment: Sinan atric calculator link https://www.kidney.org/professionals/kdoqi/gfr_calculatorped [...] #### H H, EGFR1, ANION, BMP #### [place] [address] HGB,HCTon 04-01-2024 Hematocrit (Bld) [Volume fraction] 22.6 % Low 42.0-52.0 [facility] Comment on above: Performed at [facility] [place] [address] Performed By: #### H H, EGFR1, ANION, BMP #### [place] [address] Hemoglobin (Bld) [Mass/Vol] 7.3 g/dL Low 14.0-18.0 [facility] Comment on above: Performed By: #### H H, EGFR1, ANION, BMP #### [facility] [address] [place] [address] Hematocrit (Bld) [Volume fraction] 22.0 % Low 42.0-52.0 [facility] Comment on above: Performed at [facility] [place] [address] Performed By: #### H H, EGFR1, ANION, BMP #### [facility] [address] [place] [address] Hemoglobin (Bld) [Mass/Vol] 7.2 g/dL Low 14.0-18.0 [facility] Comment on above: Performed By: #### H H, EGFR1, ANION, BMP #### [facility] [address] [place] [address] Hematocrit (Bld) [Volume fraction] 22.4 % Low 42.0-52.0 [facility] Comment on above: Performed at [facility] [address] [place] [address] Performed By: #### H H, EGFR1, ANION, BMP #### [employer] [facility] [address] [place] [address] Hemoglobin (Bld) [Mass/Vol] 7.4 g/dL Low 14.0-18.0 [facility] Comment on above: Performed By: #### H H, EGFR1, ANION, BMP #### [facility] [address] [place] [address] Hemoglobin and Hematocrit pa suzanne (Bld)on 04-01-2024 Interpretation and review of laboratory results Abnormal [facility] No Panel Informationon 04-01 Interpretation and review of laboratory results Abnormal [facility] ANION GAPon 03-31-2024 Anion gap [Moles/Vol] 10.0 mmol/L Normal 8.0-16.0 [facility] Comment on above: Result Comment: ANIO N GAP = Sodium -(Chloride + CO2) Performed By: #### H H, EGFR1, ANION, BMP #### [facility] [address] [place] [address] Anion Gapon 03-31-2024 Anion gap [Moles/Vol] 10.0 mmol/L 8.0 - 16.0 meq/L [facility] Comment on above: ANION GAP = Sodium - (Chloride + CO2) Performed at [facility] [employer] [facility] [address] [place] [address] BASIC METABOL PANELon 2024 Chloride [Moles/Vol] 104 mmol/L Normal 98-111 [facility] Comment on above: Performed By: #### H H, EGFR1, ANION, BMP #### [facility] [address] [place] [address] Potassium [Moles/Vol] 4.3 mmol/L Normal 3.5-5.2 [facility] Comment on above: Performed By: #### H H, EGFR1, ANION, BMP #### [facility] [address] [place] [address] Sodium [Moles/Vol] 135 mmol/L Normal 135-145 [facility] Comment on above: Performed By: #### H H, EGFR1, ANION, BMP #### [employer] [address] [place] [address] Calcium [Mass/Vol] 8.0 mg/dL Low 8.5-10.5 [facility] Comment on above: Performed By: #### H H, EGFR1, ANION, BMP #### [facility] [address] [place] [address] CO2 [Moles/Vol] 21 mmol/L Low 23-33 [facility] Comment on above: Performed By: #### H H, EGFR1, ANION, BMP #### [facility] [address] [place] [address] Creatinine [Mass/Vol] 1.7 mg/dL High 0.4-1.2 [facility] Comment on above: Performed By: #### H H, EGFR1, ANION, BMP #### [facility] [address] [place] [address] Glucose [Mass/Vol] 106 mg/dL Normal 70-108 [facility] Comment on above: Performed By: #### H H, EGFR1, ANION, BMP #### [facility] [address] [place] [address] Urea nitrogen [Mass/Vol] 40 mg/dL High 7-22 [facility] Comment on above: Performed By: #### H H, EGFR1, ANION, BMP #### [facility] [address] [place] [address] Basic metabolic 2000 panelon 03-31-2024 Calcium [Mass/Vol] 8.0 mg/dL Low 8.5 - 10. 5 mg/dL [facility] Comment on above: Performed at [facility] [address] [place] [address] Chloride [Moles/Vol] 104 mmol/L 98 - 11 1 meq/L [facility] CO2 [Moles/Vol] 21 mmol/L Low 23 - 33 meq/L [facility] Creatinine [Mass/Vol] 1.7 mg/dL High 0.4 - 1.2 mg/dL [facility] Glucose [Mass/Vol] 106 mg/dL 70 - 108 mg/dL [facility] Potassium [Moles/Vol] 4.3 mmol/L 3.5 - 5.2 meq/L [facility] Sodium [Moles/Vol] 135 mmol/L 135 - 145 meq/L [facility] Urea nitrogen [Mass/Vol] 40 mg/dL High 7 - 22 mg/dL [facility] GFR, ESTIMATEDon 03-31-2024 GFR/1.73 sq M.predicted MDRD (S/P/Bld) [Vol rate/Area] 39 mL/min/{1.73_m2} Abnormal >60 [facility] Comment on above: Pediatric calculator link [...] that affects renal tubular secretion. Performed [place] [employer] [address] Result Comment: Pedi atric calculator link https://www.kidney.org/professionals/kdoqi/gfr_calculatorped [...] #### H H, EGFR1, ANION, BMP #### [facility] [address] [place] [address] HGB,HCTon 03-31-2024 Hematocrit (Bld) [Volume fraction] 24.2 % Low 42.0-52.0 [facility] Comment on above: Performed at [facility] [address] [place] [address] Performed By: #### H H #### [place] [address] Hemoglobin (Bld) [Mass/Vol] 8.0 g/dL Low 14.0-18.0 [facility] Comment on above: Performed By: #### H H #### [place] [address] Hematocrit (Bld) [Volume fraction] 22.7 % Low 42.0-52.0 [facility] Comment on above: [place] [address] Performed By: #### H H, EGFR1, ANION, BMP #### [place] [address] Hemoglobin (Bld) [Mass/Vol] 7.5 g/dL Low 14.0-18.0 [facility] Comment on above: Performed By: #### H H, EGFR1, ANION, BMP #### [place] [address] Hematocrit (Bld) [Volume fraction] 23.8 % Low 42.0-52.0 [facility] Comment on above: Performed at [facility] [address] [place] [address] Performed By: #### H H, EGFR1, ANION, BMP #### [place] [address] Hemoglobin (Bld) [Mass/Vol] 7.5 g/dL Low 14.0-18.0 [facility] Comment on above: Performed By: #### H H, EGFR1, ANION, BMP #### [place] [address] Hemoglobin and Hematocrit pa suzanne (Bld)on 03-31-2024 Interpretation and review of laboratory results Abnormal [facility] Interpretation and review of laboratory results Abnormal [facility] Interpretation and review of laboratory results Abnormal [facility] No Panel Informationon 03-31 Interpretation and review of laboratory results Abnormal [facility] ANION GAPon 03-30-2024 Anion gap [Moles/Vol] 10.0 mmol/L Normal 8.0-16.0 [facility] Comment on above: Result Comment: ANIO N GAP = Sodium -(Chloride + CO2) Performed By: #### H H, EGFR1, ANION, BMP #### [facility] [address] [place] [address] Anion Gapon 03-30-2024 Anion gap [Moles/Vol] 10.0 mmol/L 8.0 - 16.0 meq/L [facility] Comment on above: ANION GAP = Sodium - (Chloride + CO2) Performed at [facility] [address] [place] [address] BASIC METABOL PANELon 2024 Calcium [Mass/Vol] 7.7 mg/dL Low 8.5-10.5 [facility] Comment on above: Performed By: #### H H, EGFR1, ANION, BMP #### [facility] [address] [place] [address] Chloride [Moles/Vol] 108 mmol/L Normal 98-111 [facility] Comment on above: Performed By: #### H H, EGFR1, ANION, BMP #### [employer] [address] [place] [address] CO2 [Moles/Vol] 21 mmol/L Low 23-33 [facility] Comment on above: Performed By: #### H H, EGFR1, ANION, BMP #### [employer] [address] [place] [address] Creatinine [Mass/Vol] 1.4 mg/dL High 0.4-1.2 [facility] Comment on above: Performed By: #### H H, EGFR1, ANION, BMP #### [employer] [address] [place] [address] Glucose [Mass/Vol] 185 mg/dL High 70-108 [facility] Comment on above: Performed By: #### H H, EGFR1, ANION, BMP #### [employer] [address] [place] [address] Potassium [Moles/Vol] 4.9 mmol/L Normal 3.5-5.2 [facility] Comment on above: Performed By: #### H H, EGFR1, ANION, BMP #### [employer] [address] [place] [address] Sodium [Moles/Vol] 139 mmol/L Normal 135-145 [facility] Comment on above: Performed By: #### H H, EGFR1, ANION, BMP #### [employer] [address] [place] [address] Urea nitrogen [Mass/Vol] 25 mg/dL High 09-27 [facility] Comment on above: Performed By: #### H H, EGFR1, ANION, BMP #### [facility] [address] [place] [address] Basic metabolic 2000 panelon 03-30-2024 Calcium [Mass/Vol] 7.7 mg/dL Low 8.5 - 10. 5 mg/dL [facility] [employer] Comment on above: Performed at [facility] [address] [place] [address] Chloride [Moles/Vol] 108 mmol/L 98 - 11 1 meq/L [facility] CO2 [Moles/Vol] 21 mmol/L Low 23 - 33 meq/L [facility] [employer] Creatinine [Mass/Vol] 1.4 mg/dL High 0.4 - 1.2 mg/dL [facility] [employer] Glucose [Mass/Vol] 185 mg/dL High 70 - 108 mg/dL [facility] [employer] Potassium [Moles/Vol] 4.9 mmol/L 3.5 - 5.2 meq/L [facility] Sodium [Moles/Vol] 139 mmol/L 135 - 145 meq/L [facility] Urea nitrogen [Mass/Vol] 25 mg/dL High 7 - 22 mg/dL [facility] [employer] GFR, ESTIMATEDon 03-30-2024 GFR/1.73 sq M.predicted MDRD (S/P/Bld) [Vol rate/Area] 50 mL/min/{1.73_m2} Abnormal >60 [employer] Comment on above: Pediatric calculator link https://www.kidney.org/professionals/kdoqi/gfr_calculatorped [...] that affects renal tubular secretion. Performed [place] [employer] [address] Result Comment: Pedi atric calculator link https://www.kidney.org/professionals/kdoqi/gfr_calculatorped [...] #### H H, EGFR1, ANION, BMP #### [facility] [address] [place] [address] HGB,HCTon 03-30-2024 Hematocrit (Bld) [Volume fraction] 22.5 % Low 42.0-52.0 [facility] Comment on above: Performed at [employer] [facility] [address] [place] [address] Performed By: #### H H, EGFR1, ANION, BMP #### [facility] [address] [place] [address] Hemoglobin (Bld) [Mass/Vol] 7.3 g/dL Low 14.0-18.0 [facility] Comment on above: Performed By: #### H H, EGFR1, ANION, BMP #### [facility] [address] [place] [address] Hematocrit (Bld) [Volume fraction] 24.5 % Low 42.0-52.0 [facility] Comment on above: Performed at [employer] [facility] [address] [place] [address] Performed By: #### H H, EGFR1, ANION, BMP #### [place] [address] Hemoglobin (Bld) [Mass/Vol] 8.1 g/dL Low 14.0-18.0 [facility] Comment on above: Performed By: #### H H, EGFR1, ANION, BMP #### [place] [address] Hematocrit (Bld) [Volume fraction] 27.1 % Low 42.0-52.0 [facility] Comment on above: Performed at [facility] [address] [place] [address] Performed By: #### H H, EGFR1, ANION, BMP #### [place] [address] Hemoglobin (Bld) [Mass/Vol] 9.1 g/dL Low 14.0-18.0 [facility] Comment on above: Performed By: #### H H, EGFR1, ANION, BMP #### [place] [address] Hematocrit (Bld) [Volume fraction] 26.0 % Low 42.0-52.0 [facility] Comment on above: Performed at [facility] [address] [place] [address] Performed By: #### H H, EGFR1, ANION, BMP #### [place] [address] Hemoglobin (Bld) [Mass/Vol] 8.6 g/dL Low 14.0-18.0 [facility] Comment on above: Performed By: #### H H, EGFR1, ANION, BMP #### [facility] [employer] [address] [place] [address] Hemoglobin and Hematocrit pa suzanne (Bld)on 03-30-2024 Interpretation and review of laboratory results Abnormal [facility] Interpretation and review of laboratory results Abnormal [facility] Interpretation and review of laboratory results Abnormal [facility] Interpretation and review of laboratory results Abnormal [facility] No Panel Informationon 03-30 Interpretation and review of laboratory results Abnormal [facility] XR Lumbar spine Single viewo n 03-30-2024 1. Single posterolateral intraoperative view of the lumbar spine demonstrates posterior fusion hardware from L2-S1. Please refer to operative report for further details. This report has been created using voice recognition software. It may contain minor errors which are inherent in voice recognition technology. Electronically signed by Dr. Palmer Lockhart [facility] Jez Castro MD - 03/30/2024 PROCEDURE: XR [...] technology. Electronically signed by Dr. Palmer Lockhart [facility] XR Lumbar spine Single viewO rdered By: Jez Lockhart on 03-30-2024 [facility] Work Phone: HGB,HCTon 03-29-2024 Hematocrit (Bld) [Volume fraction] 32.3 % Low 42.0-52.0 [facility] Comment on above: Performed at [facility] [address] [place] [address] Performed By: #### H H, EGFR1, ANION, BMP #### [employer] [facility] [address] [place] [address] Hemoglobin (Bld) [Mass/Vol] 10.5 g/dL Low 14.0-18.0 [facility] Comment on above: Performed By: #### H H, EGFR1, ANION, BMP #### [facility] [address] [place] [address] Hemoglobin and Hematocrit pa suzanne (Bld)on 03-29-2024 Interpretation and review of laboratory results Abnormal [facility] POTASSIUMon 03-29-2024 Potassium [Moles/Vol] 4.2 mmol/L Normal 3.5-5.2 [facility] Comment on above: Performed By: #### C T+S, KP #### [facility] [address] [place] [address] Potassiumon 03-29-2024 Potassium [Moles/Vol] 4.2 mmol/L 3.5 - 5.2 meq/L [facility] Comment on above: Performed at [facility] Lab [address] [place] [address] Potassium [Moles/Vol]on 03-10 [facility] TYPE AND SCREENon 03-29-2024 ABO A [facility] Rh Factor Positive [facility] TYPE AND SCREEN CAPTUREon ABO CAPTURE A Normal [facility] Comment on above: Performed By: #### H H, EGFR1, ANION, BMP #### [facility] [address] [place] [address] INDIRECT CATHY CAPTURE Negative Normal [facility] Comment on above: Performed By: #### H H, EGFR1, ANION, BMP #### [facility] [address] [place] [address] RH CAPTURE (2 D CLONES) Positive Normal [facility] Comment on above: Performed By: #### H H, EGFR1, ANION, BMP #### [facility] [address] [place] [address] XR Lumbar spine Single viewo n 03-29-2024 Radiology Study observation (narrative) [facility] BASIC METABOLIC PANLon 03-16 Anion gap [Moles/Vol] 9 mmol/L Normal 5-15 [facility] Comment on above: Performed By: #### C BC, UPCR, CMP, 07636-4, 2777-1, 3084-1, 2731-8, 2132-9, 73127-7 #### [facility] ([id number]) [address], [address] [place] [address] Calcium [Mass/Vol] 9.7 mg/dL Normal 8.5-10.5 [facility] Comment on above: Performed By: #### C BC, UPCR, CMP, 05897-1, 2777-1, 3084-1, 2731-8, 2132-9, 75301-4 #### [facility] ([id number]) [address], [address] [place] [address] Chloride [Moles/Vol] 103 mmol/L Normal 98-109 [facility] Comment on above: Performed By: #### C BC, UPCR, CMP, 78140-4, 2777-1, 3084-1, 2731-8, 2-9, 57335-3 #### [facility] ([id number]) [address], [address] [place] [address] CO2 [Moles/Vol] 29 mmol/L Normal 22-32 [facility] Comment on above: Performed By: #### C BC, UPCR, CMP, 04785-9, 2777-1, 3084-1, 2731-8, 2132-9, 52947-7 #### [facility] ([id number]) [address], [address] [place] [address] Creatinine [Mass/Vol] 1.40 mg/dL High 0.60-1.30 [facility] Comment on above: Result Comment: METH OD TRACEABLE TO IDMS STANDARD Performed By: #### C BC, UPCR, CMP, 65979-7, 2777-1, 3084-1, 2731-8, 2132-9, 97185-5 #### [facility] ([id number]) [address], [address] [place] [address] GFR/1.73 sq M.predicted among non-blacks MDRD (S/P/Bld) [Vol rate/Area] 50 mL/min/{1.73_m2} Low >59 [facility] Comment on above: Result Comment: Reported eGFR is based on the CKD-EPI 2020 equation that does not use a race coefficient. Performed By: #### C BC, UPCR, CMP, 62555-6, 2777-1, 3084-1, 2731-8, 2132-9, 13546-1 #### [facility] ([id number]) [address], [address] [place] [address] Glucose [Mass/Vol] 92 mg/dL Normal 65-99 [facility] Comment on above: Performed By: #### C BC, UPCR, CMP, 05347-1, 2777-1, 3084-1, 2731-8, 2132-9, 09437-6 #### [facility] ([id number]) [address], [address] [place] [address] Potassium [Moles/Vol] 4.5 mmol/L Normal 3.5-5.0 [facility] Comment on above: Performed By: #### C BC, UPCR, CMP, 35321-2, 2777-1, 3084-1, 2731-8, 2132-9, 37213-5 #### [facility] ([id number]) [address], [address] [place] [address] Sodium [Moles/Vol] 141 mmol/L Normal 134-146 [facility] Comment on above: Performed By: #### C BC, UPCR, CMP, 14666-2, 2777-1, 3084-1, 2731-8, 2132-9, 63717-3 #### [facility] ([id number]) [address], [address] [place] [address] Urea nitrogen [Mass/Vol] 27 mg/dL Normal 5-27 [facility] Comment on above: Performed By: #### C BC, UPCR, CMP, 36110-7, 2777-1, 3084-1, 2731-8, 2131-9, 33231-2 #### [facility] ([id number]) [address], [address] [place] [address] CBC AND AUTO DIFFon 03-16-19 25 ABSOLUTE BASOPHIL 0.0 X10E9/L Normal 0.0-0.2 [facility] Comment on above: Performed By: #### C BC, UPCR, CMP, 68910-6, 2777-1, 3084-1, 2731-8, 2131-9, 74482-9 #### [facility] ([id number]) [address], [address] [place] [address] ABSOLUTE NEUTROPHIL 2.5 X10E9/L Normal 1.5-6.6 [facility] Comment on above: Performed By: #### C BC, UPCR, CMP, 25852-6, 7-1, 3084-1, 1-8, 2131-9, 38213-4 #### [facility] ([id number]) [address], [address] [place] [address] Basophils/100 WBC (Bld) 0.5 % Normal [facility] Comment on above: Performed By: #### C BC, UPCR, CMP, 98361-0, 7-1, 3084-1, 1-8, 2131-9, 49317-7 #### [facility] ([id number]) [address], [address] [place] [address] Eosinophils (Bld) [#/Vol] 0.2 10*3/uL Normal 0.0-0.4 [facility] Comment on above: Performed By: #### C BC, UPCR, CMP, 09897-5, 2777-1, 3084-1, 2731-8, 2131-9, 60723-4 #### [facility] ([id number]) [address], [address] [place] [address] Eosinophils/100 WBC (Bld) 4.5 % Normal [facility] Comment on above: Performed By: #### C BC, UPCR, CMP, 80430-7, 2777-1, 3084-1, 2731-8, 2-9, 22833-4 #### [facility] ([id number]) [address], [address] [place] [address] Erythrocyte distribution width (RBC) [Ratio] 13.6 % Normal 11.5-15.0 [facility] Comment on above: Performed By: #### C BC, UPCR, CMP, 71322-4, 2777-1, 3084-1, 2731-8, 2131-9, 49087-8 #### [facility] ([id number]) [address], [address] [place] [address] Hematocrit (Bld) [Volume fraction] 38.0 % Low 39-49 [facility] Comment on above: Performed By: #### C BC, UPCR, CMP, 05876-4, 2777-1, 3084-1, 2731-8, 2131-9, 57077-4 #### [facility] ([id number]) [address], [address] [place] [address] Hemoglobin (Bld) [Mass/Vol] 12.8 g/dL Low 13.0-17.0 [facility] Comment on above: Performed By: #### C BC, UPCR, CMP, 99084-5, 2777-1, 3084-1, 2731-8, 2131-9, 60837-1 #### [facility] ([id number]) [address], [address] [place] [address] Lymphocytes (Bld) [#/Vol] 1.0 10*3/uL Normal 1.0-3.5 [facility] Comment on above: Performed By: #### C BC, UPCR, CMP, 04120-3, 2777-1, 3084-1, 2731-8, 2132-9, 32925-2 #### [facility] ([id number]) [address], [address] [place] [address] Lymphocytes/100 WBC (Bld) 23.2 % Normal [facility] Comment on above: Performed By: #### C BC, UPCR, CMP, 95056-1, 2777-1, 3084-1, 2731-8, 2131-9, 03371-0 #### [facility] ([id number]) [address], [address] [place] [address] MCH (RBC) [Entitic mass] 31.6 pg Normal 27-34 [facility] Comment on above: Performed By: #### C BC, UPCR, CMP, 14118-7, 7-1, 3084-1, 2731-8, 2131-9, 29737-1 #### [facility] ([id number]) [address], [address] [place] [address] MCHC (RBC) [Mass/Vol] 33.7 g/dL Normal 32-36 [facility] Comment on above: Performed By: #### C BC, UPCR, CMP, 25300-3, 2777-1, 3084-1, 2731-8, 2131-9, 14509-7 #### [facility] ([id number]) [address], [address] [place] [address] MCV (RBC) [Entitic vol] 94 fL Normal 80-100 [facility] Comment on above: Performed By: #### C BC, UPCR, CMP, 50634-1, 2777-1, 3084-1, 2731-8, 2132-9, 38104-4 #### [facility] ([id number]) [address], [address] [place] [address] Monocytes (Bld) [#/Vol] 0.6 10*3/uL Normal 0-0.9 [facility] Comment on above: Performed By: #### C BC, UPCR, CMP, 16823-6, 2777-1, 3084-1, 2731-8, 2-9, 72007-5 #### [facility] ([id number]) [address], [address] [place] [address] Monocytes/100 WBC (Bld) 14.1 % Normal [facility] Comment on above: Performed By: #### C BC, UPCR, CMP, 64752-1, 2777-1, 3084-1, 2731-8, 2131-9, 24697-7 #### [facility] ([id number]) [address], [address] [place] [address] Neutrophils/100 WBC (Bld) 57.7 % Normal [facility] Comment on above: Performed By: #### C BC, UPCR, CMP, 99052-8, 2777-1, 3084-1, 2731-8, 2131-9, 59939-8 #### [facility] ([id number]) [address], [address] [place] [address] Platelet mean volume (Bld) [Entitic vol] 8.0 fL Normal 7-12 [facility] Comment on above: Performed By: #### C BC, UPCR, CMP, 45930-6, 2777-1, 3084-1, 2731-8, 2131-9, 61803-3 #### [facility] ([id number]) [address], [address] [place] [address] Platelets (Bld) [#/Vol] 214 10*3/uL Normal 150-450 [facility] Comment on above: Performed By: #### C BC, UPCR, CMP, 63956-1, 2777-1, 3084-1, 2731-8, 2131-9, 66967-3 #### [facility] ([id number]) [address], [address] [place] [address] RBC COUNT 4.06 X10E12/L Low 4.10-5.70 [facility] Comment on above: Performed By: #### C BC, UPCR, CMP, 39188-6, 2777-1, 3084-1, 2731-8, 2131-9, 37326-6 #### [facility] ([id number]) [address], [address] [place] [address] WBC (Bld) [#/Vol] 4.3 10*3/uL Normal 4.0-11.0 [facility] Comment on above: Performed By: #### C BC, UPCR, CMP, 80445-7, 7-1, 3084-1, 2730-8, 2131-9, 64426-2 #### [facility] ([id number]) [address], [address] [place] [address] MRSA PCR NASALon 03-16-2024 MRSA DNA NAMRATA+probe Ql (Unsp spec) Negative Normal NEG [facility] Comment on above: Performed By: #### C BC, UPCR, CMP, 47532-0, 2777-1, 3084-1, 1-8, 2131-9, 70276-1 #### [facility] ([id number]) [address], [address] [place] [address] PROTIME AND INRon 03-16-2024 INR Coag (PPP) [Relative time] 0.9 {INR} Normal 0.8-1.1 [facility] Comment on above: Performed By: #### C BC, UPCR, CMP, 88429-4, 7-1, 3084-1, 2731-8, 2131-9, 05111-3 #### [facility] ([id number]) [address], [address] [place] [address] PT Coag (PPP) [Time] 10.9 s Normal 9.8-13.2 [facility] Comment on above: Performed By: #### C BC, UPCR, CMP, 18697-9, 2777-1, 3084-1, 2731-8, 2132-9, 53892-7 #### [facility] ([id number]) [address], [address] [place] [address] XR CHEST 2 VWSon 03-16-2024 XR CHEST [...] Hughes MD on 03/16/2024 5:40 PM Normal [facility] aPTT Coag (PPP) [Time]on aPTT Coag (Bld) [Time] 34 s Normal 26-37 [facility] Comment on above: Result Comment: NEW REFERENCE RANGE Performed By: #### C BC, UPCR, CMP, 11687-6, 7-1, 3084-1, 2731-8, 2131-9, 67634-8 #### [facility] ([id number]) [address], [address] [place] [address] COMPLETE BLOOD COUNTon 08-16 Erythrocyte distribution width (RBC) [Ratio] 14.0 % Normal 11.5-15.0 [facility] Comment on above: Performed By: #### C BC, UPCR, CMP, 18777-4, 2777-1, 3084-1, 2731-8, 2132-9, 93464-5 #### [facility] ([id number]) [address], [address] [place] [address] Hematocrit (Bld) [Volume fraction] 39.1 % Normal 39-49 [facility] Comment on above: Performed By: #### C BC, UPCR, CMP, 98339-3, 2777-1, 3084-1, 2731-8, 2132-9, 47191-0 #### [facility] ([id number]) [address], [address] [place] [address] Hemoglobin (Bld) [Mass/Vol] 13.6 g/dL Normal 13.0-17.0 [facility] Comment on above: Performed By: #### C BC, UPCR, CMP, 09610-4, 2777-1, 3084-1, 2731-8, 2132-9, 44493-5 #### [facility] ([id number]) [address], [address] [place] [address] MCH (RBC) [Entitic mass] 32.9 pg Normal 27-34 [facility] Comment on above: Performed By: #### C BC, UPCR, CMP, 73888-7, 2777-1, 3084-1, 2731-8, 2131-9, 19570-8 #### [facility] ([id number]) [address], [address] [place] [address] MCHC (RBC) [Mass/Vol] 34.9 g/dL Normal 32-36 [facility] Comment on above: Performed By: #### C BC, UPCR, CMP, 77158-7, 2777-1, 3084-1, 2731-8, 2-9, 57271-3 #### [facility] ([id number]) [address], [address] [place] [address] MCV (RBC) [Entitic vol] 94 fL Normal 80-100 [facility] Comment on above: Performed By: #### C BC, UPCR, CMP, 75416-4, 2777-1, 3084-1, 2731-8, 2132-9, 02862-7 #### [facility] ([id number]) [address], [address] [place] [address] Platelet mean volume (Bld) [Entitic vol] 8.3 fL Normal 7-12 [facility] Comment on above: Performed By: #### C BC, UPCR, CMP, 53402-9, 2777-1, 3084-1, 2731-8, 2132-9, 29673-2 #### [facility] ([id number]) [address], [address] [place] [address] Platelets (Bld) [#/Vol] 189 10*3/uL Normal 150-450 [facility] Comment on above: Performed By: #### C BC, UPCR, CMP, 96925-6, 2777-1, 3084-1, 2731-8, 2132-9, 48460-1 #### [facility] ([id number]) [address], [address] [place] [address] RBC COUNT 4.15 X10E12/L Normal 4.10-5.70 [facility] Comment on above: Performed By: #### C BC, UPCR, CMP, 05977-2, 2777-1, 3084-1, 2731-8, 2132-9, 53528-0 #### [facility] ([id number]) [address], [address] [place] [address] WBC (Bld) [#/Vol] 5.1 10*3/uL Normal 4.0-11.0 [facility] Comment on above: Performed By: #### C BC, UPCR, CMP, 34359-6, 2777-1, 3084-1, 2731-8, 2132-9, 04464-5 #### [facility] ([id number]) [address], [address] [place] [address] COMPREHENSIVE METABOLIC PANE Dima 08-17-2023 Albumin [Mass/Vol] 4.2 g/dL Normal 3.2-5.3 [facility] Comment on above: Performed By: #### C BC, UPCR, CMP, 09653-8, 2777-1, 3084-1, 2731-8, 2132-9, 79468-1 #### [facility] ([id number]) [address], [address] [place] [address] ALP [Catalytic activity/Vol] 61 U/L Normal 39-130 [facility] Comment on above: Performed By: #### C BC, UPCR, CMP, 04558-0, 2777-1, 3084-1, 2731-8, 2132-9, 90810-4 #### [facility] ([id number]) [address], [address] [place] [address] ALT [Catalytic activity/Vol] 21 U/L Normal 0-40 [facility] Comment on above: Performed By: #### C BC, UPCR, CMP, 01081-3, 2777-1, 3084-1, 2731-8, 2132-9, 12808-6 #### [facility] ([id number]) [address], [address] [place] [address] Anion gap [Moles/Vol] 8 mmol/L Normal 5-15 [facility] Comment on above: Performed By: #### C BC, UPCR, CMP, 39188-2, 2777-1, 3084-1, 2731-8, 2132-9, 79880-2 #### [facility] ([id number]) [address], [address] [place] [address] AST [Catalytic activity/Vol] 19 U/L Normal 0-41 [facility] Comment on above: Performed By: #### C BC, UPCR, CMP, 18242-4, 2777-1, 3084-1, 2731-8, 2132-9, 12644-1 #### [facility] ([id number]) [address], [address] [place] [address] Bilirubin [Mass/Vol] 0.6 mg/dL Normal 0.3-1.2 [facility] Comment on above: Performed By: #### C BC, UPCR, CMP, 85253-9, 2777-1, 3084-1, 2731-8, 2132-9, 30065-5 #### [facility] ([id number]) [address], [address] [place] [address] Calcium [Mass/Vol] 9.7 mg/dL Normal 8.5-10.5 [facility] Comment on above: Performed By: #### C BC, UPCR, CMP, 76209-7, 2777-1, 3084-1, 2731-8, 2132-9, 27793-9 #### [facility] ([id number]) [address], [address] [place] [address] Chloride [Moles/Vol] 104 mmol/L Normal 98-109 [facility] Comment on above: Performed By: #### C BC, UPCR, CMP, 44912-8, 2777-1, 3084-1, 2731-8, 2-9, 05847-2 #### [facility] ([id number]) [address], [address] [place] [address] CO2 [Moles/Vol] 29 mmol/L Normal 22-32 [facility] Comment on above: Performed By: #### C BC, UPCR, CMP, 72290-8, 2777-1, 3084-1, 2731-8, 2131-9, 63883-7 #### [facility] ([id number]) [address], [address] [place] [address] Creatinine [Mass/Vol] 1.29 mg/dL Normal 0.60-1.30 [facility] Comment on above: Result Comment: METH OD TRACEABLE TO IDMS STANDARD Performed By: #### C BC, UPCR, CMP, 69693-2, 2777-1, 3084-1, 2731-8, 2132-9, 06431-5 #### [facility] ([id number]) [address], [address] [place] [address] GFR/1.73 sq M.predicted among non-blacks MDRD (S/P/Bld) [Vol rate/Area] 55 mL/min/{1.73_m2} Low >59 [facility] Comment on above: Result Comment: Reported eGFR is based on the CKD-EPI 2020 equation that does not use a race coefficient. Performed By: #### C BC, UPCR, CMP, 76466-0, 2777-1, 3084-1, 2731-8, 2132-9, 95611-1 #### [facility] ([id number]) [address], [address] [place] [address] Glucose [Mass/Vol] 94 mg/dL Normal 65-99 [facility] Comment on above: Performed By: #### C BC, UPCR, CMP, 29741-9, 2777-1, 3084-1, 2731-8, 2-9, 93148-1 #### [facility] ([id number]) [address], [address] [place] [address] Potassium [Moles/Vol] 4.4 mmol/L Normal 3.5-5.0 [facility] Comment on above: Performed By: #### C BC, UPCR, CMP, 51093-1, 2777-1, 3084-1, 2731-8, 2132-9, 84087-1 #### [facility] ([id number]) [address], [address] [place] [address] Protein [Mass/Vol] 6.7 g/dL Normal 6.0-8.0 [facility] Comment on above: Performed By: #### C BC, UPCR, CMP, 02483-2, 2777-1, 3084-1, 2731-8, 2132-9, 16424-8 #### [facility] ([id number]) [address], [address] [place] [address] Sodium [Moles/Vol] 141 mmol/L Normal 134-146 [facility] Comment on above: Performed By: #### C BC, UPCR, CMP, 28750-5, 2777-1, 3084-1, 2731-8, 2132-9, 41044-8 #### [facility] ([id number]) [address], [address] [place] [address] Urea nitrogen [Mass/Vol] 23 mg/dL Normal 5-27 [facility] Comment on above: Performed By: #### C BC, UPCR, CMP, 91540-1, 2777-1, 3084-1, 2731-8, 2131-9, 14258-1 #### [facility] ([id number]) [address], [address] [place] [address] MAGNESIUMon 08-17-2023 Magnesium [Mass/Vol] 2.1 mg/dL Normal 1.8-2.6 [facility] Comment on above: Performed By: #### C BC, UPCR, CMP, 89644-6, 2777-1, 3084-1, 2731-8, 2131-9, 61238-7 #### [facility] ([id number]) [address], [address] [place] [address] PHOSPHORUSon 08-17-2023 Phosphate [Mass/Vol] 2.3 mg/dL Low 2.4-4.9 [facility] Comment on above: Performed By: #### C BC, UPCR, CMP, 35824-2, 2777-1, 3084-1, 2731-8, 2131-9, 52324-9 #### [facility] ([id number]) [address], [address] [place] [address] PROTEIN CREAT RATIOon 2023 RANDOM URINE PROTEIN 190 mg/L High <120 [facility] Comment on above: Performed By: #### C BC, UPCR, CMP, 07468-0, 2777-1, 3084-1, 2731-8, 2132-9, 14501-8 #### [facility] ([id number]) [address] [place] [address] U/PRO/STONECUTTER APPRENTICE HAND RATIO CALC 0.14 Normal <0.2 [facility] Comment on above: Result Comment: Neph rotic Syndrome is associated with ratios >3.5 Performed By: #### C BC, UPCR, CMP, 95477-5, 2777-1, 3084-1, 2731-8, 2132-9, 49470-0 #### [facility] ([id number]) [address], [address] [place] [address] URINE CREATININE,RDM 131.58 mg/dL Normal [facility] Comment on above: Performed By: #### C BC, UPCR, CMP, 72795-2, 2777-1, 3084-1, 2731-8, 2-9, 62157-5 #### [facility] ([id number]) [address], [address] [place] [address] Parathyrin.intact [Mass/Vol] on 08-17-2023 PTH INTACT 88 pg/mL Normal 12-88 [facility] Comment on above: Performed By: #### C BC, UPCR, CMP, 01184-7, 2777-1, 3084-1, 2731-8, 2132-9, 31285-2 #### [facility] ([id number]) [address], [address] [place] [address] URIC ACIDon 08-17-2023 Urate [Mass/Vol] 5.2 mg/dL Normal 2.6-7.2 [facility] Comment on above: Performed By: #### C BC, UPCR, CMP, 74567-9, 2777-1, 3084-1, 2731-8, 2132-9, 66506-0 #### [facility] ([id number]) [address], [address] [place] [address] URINALYSISon 08-17-2023 Bilirubin Ql (U) Negative Normal NEG [facility] Comment on above: Performed By: #### U A #### [facility] ([id number]) [address], [address] [place] [address] BLOOD/HGB Negative Normal NEG [facility] Comment on above: Performed By: #### U A #### [facility] ([id number]) [address], [address] [place] [address] Color (U) YELLOW Normal YELLOW [facility] Comment on above: Performed By: #### U A #### [facility] ([id number]) [address], [address] [place] [address] Glucose Ql (U) Negative Normal NEG [facility] Comment on above: Performed By: #### U A #### [facility] ([id number]) [address], [address] [place] [address] Ketones Ql (U) Negative Normal NEG [facility] Comment on above: Performed By: #### U A #### [facility] ([id number]) [address], [address] [place] [address] Leukocyte esterase Test strip Ql (U) Negative Normal NEG [facility] Comment on above: Performed By: #### U A #### [facility] ([id number]) [address] [place] [address] MUCOUS PRESENT Abnormal NONE [facility] Comment on above: Performed By: #### U A #### [facility] ([id number]) [address], [address] [place] [address] Nitrite Ql (U) Negative Normal NEG [facility] Comment on above: Performed By: #### U A #### [facility] ([id number]) [address], [address] [place] [address] pH (U) 6.0 [pH] Normal 5.0-8.5 [facility] Comment on above: Performed By: #### U A #### [facility] ([id number]) [address] [place] [address] Protein Ql (U) Trace Abnormal NEG [facility] Comment on above: Performed By: #### U A #### [facility] ([id number]) [address] [place] [address] R.B.CELLS 1 /hpf Normal 0-5 [facility] Comment on above: Performed By: #### U A #### [facility] ([id number]) [address] [place] [address] Specific gravity (U) [Rel density] 1.023 Normal 1.003-1.035 [facility] Comment on above: Performed By: #### U A #### [facility] ([id number]) [address] [place] [address] SQUAMOUS EPITHELIUM <1 Normal 0-5 [facility] Comment on above: Performed By: #### U A #### [facility] ([id number]) [address] [place] [address] TURBIDITY CLEAR Normal CLEAR [facility] Comment on above: Performed By: #### U A #### [facility] ([id number]) [address] [place] [address] Urobilinogen (U) [Mass/Vol] mg/dL Normal <1.1 [facility] Comment on above: Performed By: #### U A #### [facility] ([id number]) [address] [place] [address] W.B.CELLS 1 /hpf Normal 0-5 [facility] Comment on above: Performed By: #### U A #### [facility] ([id number]) [address] [place] [address] VITAMIN B12on 08-17-2023 Cobalamin (Vitamin B12) [Mass/Vol] 539 pg/mL Normal 180-914 [facility] Comment on above: Performed By: #### C BC, UPCR, CMP, 64593-6, 7-1, 3084-1, 2730-8, 2131-11, 11724-1 #### [facility] ([id number]) [address], [address] [place] [address] Vitamin D+Metabolites [Mass/ Vol]on 08-17-2023 VITAMIN D 25 HYD TOT 58.8 ng/mL Normal 30-100 [facility] Comment on above: Result Comment: Vitamin D status 25 [place] Vitamin D Deficiency <20 ng/mL Insufficiency 20-29 ng/mL Sufficiency 30-100 ng/mL Toxicity >100 ng/mL NOTE: A pediatric reference range has not been established by the cook helper pastry of this kit. The [place] [employer] recommends a Vitamin D level of = or >20ng/mL in infants and children. Performed By: #### C BC, UPCR, CMP, 56475-1, 7-1, 3084-1, 2730-8, 9, 32788-8 #### [facility] ([id number]) [address] [facility] [place] [address] XR lumbar spine AP/LAT/FLX/E XTon 07-16-2023 XR lumbar spine AP/LAT/FLX/EXT [facility] [place] [facility] [address] [place] [address] XRay Report Signed Patient: Barry Mcmillna MR#: [id number] : 1940 Acct:[id number] Age/Sex: 83 / M ADM Date: 07/16/23 [...] Rahul Beavers M.D.07/16/2023 11:58 AM Dictation Location: [place] [address] Transcribed By: [facility] 07/16/23 1158 Dictated By: Rahul Beavers DO 07/16/23 1157 Signed By: 07/16/23 1158 Normal [facility] XR cerv spine AP/LAT/FLX/EXT on 06-25-2023 XR cerv spine AP/LAT/FLX/EXT [facility] [place] [address] XRay Report Signed Patient: Barry Mcmillan MR#: [id number] : 1940 Acct:[id number] Age/Sex: 83 / M ADM Date: 06/25/23 Loc: XD Room: Type: [facility] CLI Attending Dr: Willian Nuñez MD Copies [...] Osiel Calvert M.D.06/25/2023 1:59 PM Dictation Location: [place] [address] Transcribed By: [facility] 06/25/23 1359 Dictated By: Osiel Calvert II, MD 06/25/23 1357 Signed By: 06/25/23 1359 Normal [facility] Blood hemoglobin measurement (mass/volume)Ordered By: Lynn Garcia on 08-14-2021 Hemoglobin (Bld) [Mass/Vol] 12.0 g/dL 13.0-17.0 [facility] Creatinine [Mass/volume] in UrineOrdered By: Lynn Garcia on 08-14-2021 Creatinine (U) [Mass/Vol] 27.8 mg/dL [facility] Comment on above: No reference range e stablished Creatinine and Glomerular fi ltration rate.predicted panel (S/P/Bld)Ordered By: Lynn Garcia on 08-14-2021 Creatinine [Mass/Vol] 1.35 mg/dL 0.64-1.27 [facility] Erythrocyte distribution wid th Auto (RBC) [Ratio]Ordered By: Lynn Garcia on 08-14-2021 Erythrocyte distribution width (RBC) [Ratio] 14.4 % 12.0-14.8 [facility] Estimated glomerular filtrat ion rate (GFR) non- AmericanOrdered By: Lynn Garcia on 08-14-2021 GFR/1.73 sq M.predicted among non-blacks MDRD (S/P/Bld) [Vol rate/Area] 51 mL/Min [facility] Hematocrit Auto (Bld) [Volum e fraction]Ordered By: Lynn Garcia on 08-14-2021 Hematocrit (Bld) [Volume fraction] 36.0 % 38.8-50.0 [facility] MCH Auto (RBC) [Entitic mass ]Ordered By: Lynn Garcia on 08-14-2021 MCH (RBC) [Entitic mass] 30.0 pg 27.5-35.2 [facility] MCHC Auto (RBC) [Mass/Vol]Or dered By: Lynn Garcia on 08-14-2021 MCHC (RBC) [Mass/Vol] 33.5 g/dL 32.5-35.6 [facility] MCV Auto (RBC) [Entitic vol] Ordered By: Lynn Garcia on 08-14-2021 MCV (RBC) [Entitic vol] 89.8 fL 83.5-101 [facility] No Panel InformationOrdered By: Lynn Garcia on 08-14-2021 Estimated GFR () > 60 mL/Min [facility] Comment on above: GFR estimated refere nce range: According to KDOQI guidelines, <60 ml/min/1.73m2 is sufficient to diagnose a patient with chronic kidney disease. Pharmacy Creatinine Clearance (Chem N/A [facility] Phosphate [Mass/volume] in S jill or PlasmaOrdered By: Lynn Garcia on 08-14-2021 Phosphate [Mass/Vol] 2.5 mg/dL 2.5-4.6 [facility] Platelet mean volume Auto (B ld) [Entitic vol]Ordered By: Lynn Garcia on 08-14-2021 Platelet mean volume (Bld) [Entitic vol] 7.8 fL 6.6-10.1 [facility] Platelets Auto (Bld) [#/Vol] Ordered By: Lynn Garcia on 08-14-2021 Platelets (Bld) [#/Vol] 206 10*3/uL 150-450 [facility] Protein [Mass/volume] in Uri neOrdered By: Lynn Garcia on 08-14-2021 Protein (U) [Mass/Vol] mg/dL 0-9 [facility] RBC Auto (Bld) [#/Vol]Ordere d By: Lynn Garcia on 08-14-2021 RBC (Bld) [#/Vol] 4.01 10*6/uL 3.90-5.60 [facility] Serum or plasma calcium pedro urement (mass/volume)Ordered By: Lynn Garcia on 08-14-2021 Calcium [Mass/Vol] 9.9 mg/dL 8.2-10.2 [facility] Serum or plasma chloride ira surement (moles/volume)Ordered By: Lynn Garcia on 08-14-2021 Chloride [Moles/Vol] 102 mmol/L 95-114 [facility] Serum or plasma glucose pedro urement (mass/volume)Ordered By: Lynn Garcia on 08-14-2021 Glucose [Mass/Vol] 94 mg/dL 70-100 [facility] Comment on above: ADA recommended refe rence range Random Glucose Reference Range is dependent on time and content of last meal. Glucose of more than 200 mg/dL in a nonstressed, ambulatory subject supports the diagnosis of Diabetes Mellitus. Serum or plasma intact parat hyroid hormone measurement (mass/volume)Ordered By: Lynn Garcia on 08-14-2021 Parathyrin.intact [Mass/Vol] 67.0 pg/mL 12-88 [facility] Serum or plasma potassium me asurement (moles/volume)Ordered By: Lynn Garcia 08-14-2021 Potassium [Moles/Vol] 4.4 mmol/L 3.5-5.1 [facility] Serum or plasma sodium measu rement (moles/volume)Ordered By: Lynn Garcia on 08-14-2021 Sodium [Moles/Vol] 140 mmol/L 136-146 [facility] Serum or plasma total carbon dioxide measurement (moles/volume)Ordered By: Lynn Garcia on 08-14-2021 CO2 [Moles/Vol] 24.0 mmol/L 22.0-30.0 [facility] Serum or plasma urea nitroge n measurement (mass/volume)Ordered By: Lynn Garcia on 08-14-2021 Urea nitrogen [Mass/Vol] 18 mg/dL 11-29 [facility] Urine protein/creatinine rat ioOrdered By: Lynn Garcia on 08-14-2021 Protein/Creatinine (U) [Ratio] TNP [facility] Comment on above: Test not performed WBC Auto (Bld) [#/Vol]Ordere d By: Lynn Garcia on 08-14-2021 WBC (Bld) [#/Vol] 4.9 10*3/uL 4.1-10.5 [facility] CBC with Diffon 07-16-2020 AB IMMATURE NEUT 0.03 K/UL Normal 0.0-0.1 [facility] ABS BASO 0.02 K/UL Normal 0.00-0.22 [facility] ABS EOS 0.13 K/UL Normal 0-0.45 [facility] ABS NEUTROPHILS 3.50 K/UL Normal 1.8-7.7 [facility] ABS.NEUT.CALCULATED 3.50 K/UL Normal [facility] Comment on above: Result Comment: Perf ormed at [facility] [address] [facility] [address] Basophils/100 WBC (Bld) 0.40 % Normal 0-1 [facility] DIFF TYPE AUTO DIFF Normal [facility] Eosinophils/100 WBC (Bld) 2.40 % Normal 0-3 [facility] Erythrocyte distribution width (RBC) [Ratio] 12.6 % Normal 11.7-15.0 [facility] Hematocrit (Bld) [Volume fraction] 36.2 % Low 41-50 [facility] Hemoglobin (Bld) [Mass/Vol] 12.2 g/dL Low 13.5-16.5 [facility] Lymphocytes (Bld) [#/Vol] 1.46 10*3/uL Normal 1.2-3.2 [facility] Lymphocytes/100 WBC (Bld) 26.40 % Normal 20-40 [facility] MCH (RBC) [Entitic mass] 31.0 pg Normal 26-34 [facility] MCHC 33.7 % Normal 31-37 [facility] MCV (RBC) [Entitic vol] 92.1 fL Normal 80-100 [facility] MEAN PLT VOL 9.3 CU Normal 7.0-12.6 [facility] Monocytes (Bld) [#/Vol] 0.38 10*3/uL Normal 0-0.8 [facility] Monocytes/100 WBC (Bld) 6.90 % Normal 0-8 [facility] Neutrophils/100 WBC (Bld) 0.50 % Normal 0.0-1.0 [facility] Neutrophils/100 WBC (Bld) 63.40 % Normal 50-70 [facility] Platelets (Bld) [#/Vol] 208 10*3/uL Normal 150-450 [facility] RBC (Bld) [#/Vol] 3.93 10*6/uL Low 4.5-5.5 [facility] RDW-SD 43.1 FL Normal 37.0-54.0 [facility] WBC (Bld) [#/Vol] 5.5 10*3/uL Normal 4.5-11.[address] [facility] COMPREHENSIVE METABOLIC PANE Dima 07-16-2020 Anion gap [Moles/Vol] 8 mmol/L Normal 0-19 [facility] AST [Catalytic activity/Vol] 16 U/L Normal 5-40 [facility] Chloride [Moles/Vol] 104 mmol/L Normal 97-107 [facility] Albumin [Mass/Vol] 4.3 g/dL Normal 3.5-5.[address] [facility] Albumin/Globulin [Mass ratio] 1.4 {ratio} Low 1.5-3.0 [facility] ALP [Catalytic activity/Vol] 70 U/L Normal 35-125 [facility] ALT [Catalytic activity/Vol] 9 U/L Normal 5-40 [facility] Bilirubin [Mass/Vol] 0.3 mg/dL Normal 0.1-1.2 [facility] Calcium [Mass/Vol] 10.6 mg/dL High 8.5-10.[address] [facility] CO2 [Moles/Vol] 28 mmol/L Normal 24-31 [facility] Creatinine [Mass/Vol] 1.4 mg/dL Normal 0.4-1.6 [facility] ESTIMATED GFR 52 mL/min/1.73 m2 Normal [facility] Comment on above: Result Comment: GFR ml/min/1.73m2 Stage ----- 90 1 60-89 2 30-59 3 15-29 4 <15 5 For -Americans, multiply EGFR result by 1.210 Calculation not validated for patients under 18 years of age. Performed at [facility] [address] [facility] [address] Globulin (S) [Mass/Vol] 3.0 g/dL Normal 1.9-3.7 [facility] Glucose [Mass/Vol] 110 mg/dL High 65-[address] [facility] Potassium [Moles/Vol] 4.2 mmol/L Normal 3.4-5.1 [facility] Protein [Mass/Vol] 7.3 g/dL Normal 5.9-7.[address] [facility] Sodium [Moles/Vol] 140 mmol/L Normal 133-[address] [facility] Urea nitrogen [Mass/Vol] 30 mg/dL High 8- [facility] Urea nitrogen/Creatinine [Mass ratio] 21.4 mg/mg High 8- [facility] EKGon 07-16-2020 Electrocardiogram EKG Ventricular Rate : 82 BPM Atrial Rate : 82 BPM P-R Interval : 170 ms QRS Duration : 100 ms Q-T Interval : 360 ms QTC Calculation(Bazett) : 420 ms Calculated P Wrens : -4 degrees Calculated R Wrens : -10 degrees Calculated T Wrens : 57 degrees Diagnosis:Sinus rhythm with occasional Premature ventricular complexes Otherwise normal ECG No previous ECGs available Confirmed by SOPHIA CANCINO ([id number]) on 07/18/2020 11:06:00 PM [facility] SARS-CoV-2,INFLUENZA A/B NUC LEIC ACID TESTon 07-16-2020 EUA DISCLAIMER [facility] Comment on above: Result Comment: This test [...] is terminated or revoked sooner. Performed at [facility] [address] [facility] [address] FLU A by PCR Negative Normal [facility] FLU B by PCR Negative Normal [facility] SARS-CoV-2 (COVID-19) RNA NAMRATA+probe Ql (Unsp spec) Negative Normal NEG [facility] UA-REFLEX TO CULTUREon 07-16 RBC NONE SEEN Normal 0-3 [facility] Urinalysis dipstick W Reflex Microscopic panel (U) MANUAL MICROSCOPIC URINES Normal [facility] WBC NONE SEEN Normal 0-3 [facility] Bacteria identified Cx Nom (U) Normal [facility] Comment on above: Result Comment: CULT URE NOT INDICATED Performed at [facility] [address] [facility] [address] BILI Negative Normal NEG [facility] Clarity (U) CLEAR Normal [facility] Color (U) YELLOW Normal [facility] GLUC Negative Normal NEG [facility] Hemoglobin Ql (U) Negative Normal NEG [facility] KET Negative Normal NEG [facility] LEUK Negative Normal NEG [facility] NIT Negative Normal NEG [facility] pH (U) 6.5 [pH] Normal 4.6-8.0 [facility] PROT Negative Normal NEG [facility] SP GRAV,URINE 1.015 Normal 1.005-1.030 [facility] URO 0.2 MG/DL Normal 0-1.0 [facility] CBC (INCLUDES DIFF/PLT)on Basophils (Bld) [#/Vol] 0.031 10*3/uL Normal 0-200 [facility] Comment on above: Performed By: #### 4 27, 5123 #### [facility] [address], [address] [place], [place] [id number] Machine Splitter: Catrachito Mata MD Basophils/100 WBC (Bld) 0.6 % Normal [facility] Comment on above: Performed By: #### 4 44, 2397 #### [facility] [address] [address] Machine Splitter: Catrachito Mata MD Eosinophils (Bld) [#/Vol] 0.138 10*3/uL Normal 15-500 [facility] Comment on above: Performed By: #### 4 48, 1924 #### [facility] [place] [address] [place] [address] Machine Splitter: Catrachito Mata MD Eosinophils/100 WBC (Bld) 2.7 % Normal [facility] Comment on above: Performed By: #### 4 57, 6399 #### [facility] [place] [address] Machine Splitter: Catrachito Mata MD Erythrocyte distribution width (RBC) [Ratio] 13.6 % Normal 11.0-15.0 [facility] Comment on above: Performed By: #### 4 57, 6399 #### [facility] [place] [address] Machine Splitter: Catrachito Mata MD Hematocrit (Bld) [Volume fraction] 33.9 % Low 38.5-50.0 [facility] Comment on above: Performed By: #### 4 57, 6399 #### [facility] [place] [address] Machine Splitter: Catrachito Mata MD Hemoglobin (Bld) [Mass/Vol] 11.8 g/dL Low 13.2-17.1 [facility] Comment on above: Performed By: #### 4 57, 6399 #### [facility] [place] [address] Machine Splitter: Catrachito Mata MD Lymphocytes (Bld) [#/Vol] 1.239 10*3/uL Normal 850-3900 [facility] Comment on above: Performed By: #### 4 57, 2099 #### [facility] [place] [address] Machine Splitter: Catrachito Mata MD Lymphocytes/100 WBC (Bld) 24.3 % Normal [facility] Comment on above: Performed By: #### 4 57, 7099 #### [facility] [place] [address] Machine Splitter: Catrachito Mata MD MCH (RBC) [Entitic mass] 31.8 pg Normal 27.0-33.0 [facility] Comment on above: Performed By: #### 4 57, 6399 #### [facility] of [address], [address] [place] [address] Machine Splitter: Catrachito Mata MD MCHC (RBC) [Mass/Vol] 34.8 g/dL Normal 32.0-36.[address] [facility] Comment on above: Performed By: #### 4 57, 6399 #### [facility] [address], [address] [place] [address] Machine Splitter: Catrachito Mata MD MCV (RBC) [Entitic vol] 91.4 fL Normal 80.0-100.0 [facility] Comment on above: Performed By: #### 4 57, 6399 #### [facility] of [address], [address] [place] [address] Machine Splitter: Catrachito Mata MD Monocytes (Bld) [#/Vol] 0.469 10*3/uL Normal 200-950 [facility] Comment on above: Performed By: #### 4 57, 6399 #### [facility] [address], [address] [place] [address] Machine Splitter: Catrachito Mata MD Monocytes/100 WBC (Bld) 9.2 % Normal [facility] Comment on above: Performed By: #### 4 57, 6399 #### [facility] [address], [address] [place] [address] Machine Splitter: Catrachito Mata MD Neutrophils (Bld) [#/Vol] 3.223 10*3/uL Normal 2958-7349 [facility] Comment on above: Performed By: #### 4 57, 6399 #### [facility] [place] [address] Machine Splitter: Catrachito Mata MD Neutrophils/100 WBC (Bld) 63.2 % Normal [facility] Comment on above: Performed By: #### 4 57, 6399 #### [facility] [place] [address] Machine Splitter: Catrachito Mata MD Platelet mean volume (Bld) [Entitic vol] 10.0 fL Normal 7.5-12.5 [facility] Comment on above: Performed By: #### 4 57, 6399 #### [facility] [place] [address] Machine Splitter: Catrachito Mata MD Platelets (Bld) [#/Vol] 211 10*3/uL Normal 140-400 [facility] Comment on above: Performed By: #### 4 57, 6399 #### [facility] [place] [address] Machine Splitter: Catrachito Mata MD RBC (Bld) [#/Vol] 3.71 10*6/uL Low 4.20-5.80 [facility] Comment on above: Performed By: #### 4 57, 6399 #### [facility] [place] [address] Machine Splitter: Catrachito Mata MD WBC (Bld) [#/Vol] 5.1 10*3/uL Normal 3.8-10.8 [facility] Comment on above: Performed By: #### 4 57, 6399 #### [facility] [place] [address] Machine Splitter: Catrachito Mata MD FERRITINon 05-31-2020 Ferritin [Mass/Vol] 247 ng/mL Normal 24-380 [facility] Comment on above: Performed By: #### 4 57, 6399 #### [facility] [place] [address] Machine Splitter: Catrachito Mata MD TRANSFERRINon 05-31-2020 Transferrin [Mass/Vol] 229 mg/dL Normal 188-341 [facility] Comment on above: Performed By: #### 4 57, 6399 #### [facility] [place] [address] Machine Splitter: Catrachito Mata MD COVID-19 Positive/Negativeon 03-16-2020 COVID-19 Positive/Negative Negative Negative [facility] Comment on above: Testing for SARS-CoV -2 by RT-PCRThis test was developed and its performance characteristics determined by [employer] ([employer]) and validated at the [facility]. This test has not been FDA cleared [...] Otheron 03-16-2020 Coronavirus 2019 PCR Interp N/A [facility] Automated basophil %on 03-12 Basophils/100 WBC (Bld) 0.7 % [facility] Automated basophil counton 0 03-12-2020 Basophils (Bld) [#/Vol] 0.0 10*3/uL 0.0-0.2 [facility] Automated blood lymphocyte c ount (number/volume)on 03-12-2020 Lymphocytes (Bld) [#/Vol] 1.1 10*3/uL 1.00-4.8 [facility] Automated blood lymphocyte c ount as percentage of total leukocyteson 03-12-2020 Lymphocytes/100 WBC (Bld) 25.0 % [facility] Automated blood monocyte cou nton 03-12-2020 Monocytes (Bld) [#/Vol] 0.5 10*3/uL 0.0-0.8 [facility] Automated blood platelet cou nt (count/volume)on 03-12-2020 Platelets (Bld) [#/Vol] 196 10*3/uL 150-450 [facility] Automated blood platelet ira n volume measurementon 03-12-2020 Platelet mean volume (Bld) [Entitic vol] 7.9 fL 6.6-10.1 [facility] Automated eosinophil %on Eosinophils/100 WBC (Bld) 3.3 % [facility] Automated eosinophil counton 03-12-2020 Eosinophils (Bld) [#/Vol] 0.1 10*3/uL 0.0-0.45 [facility] Automated erythrocyte distri bution width ratioon 03-12-2020 Erythrocyte distribution width (RBC) [Ratio] 13.8 % 12.0-14.8 [facility] Automated erythrocyte mean c orpuscular hemoglobin (mass per erythrocyte)on 03-12-2020 MCH (RBC) [Entitic mass] 31.1 pg 27.5-35.2 [facility] Automated erythrocyte mean c orpuscular hemoglobin concentration measurement (mass/volon 03-12-2020 MCHC (RBC) [Mass/Vol] 34.1 g/dL 32.5-35.6 [facility] Automated erythrocyte mean c orpuscular volumeon 03-12-2020 MCV (RBC) [Entitic vol] 91.3 fL 83.5-101 [facility] Automated monocyte %on 03-12 Monocytes/100 WBC (Bld) 10.8 % [facility] Automated neutrophil %on Neutrophils/100 WBC (Bld) 60.2 % [facility] Blood erythrocytes automated count (number/volume)on 03-12-2020 RBC (Bld) [#/Vol] 3.98 10*6/uL 3.90-5.60 [facility] Blood hemoglobin measurement (mass/volume)on 03-12-2020 Hemoglobin (Bld) [Mass/Vol] 12.4 g/dL 13.0-17.0 [facility] Blood leukocytes automated c ount (number/volume)on 03-12-2020 WBC (Bld) [#/Vol] 4.5 10*3/uL 4.5-11.0 [facility] Blood neutrophil count by au tomated method (number/volume)on 03-12-2020 Neutrophils (Bld) [#/Vol] 2.7 10*3/uL 1.8-7.7 [facility] Estimated glomerular filtrat ion rate (GFR) non- Americanon 03-12-2020 GFR/1.73 sq M predicted among non-blacks MDRD (S/P/Bld) [Vol rate/Area] 42 mL/min/{1.73_m2} [facility] Hematocrit [Volume Fraction] of Blood by Automated counton 03-12-2020 Hematocrit (Bld) [Volume fraction] 36.3 % 38.8-50.0 [facility] Otheron 03-12-2020 GFR/1.73 sq M.predicted MDRD (S/P/Bld) [Vol rate/Area] 51 mL/min/{1.73_m2} [facility] Comment on above: GFR estimated refere nce range: According to KDOQI guidelines, <60 ml/min/1.73m2 is sufficient to diagnose a patient with chronic kidney disease. Nucleated RBC/100 WBC (Bld) [Ratio] 0.2 % 0-0.5 [facility] Creatinine Clearance (Chem N/A [facility] Serum or plasma calcium pedro urement (mass/volume)on 03-12-2020 Calcium [Mass/Vol] 10.1 mg/dL 8.2-10.2 [facility] Serum or plasma chloride ira surement (moles/volume)on 03-12-2020 Chloride [Moles/Vol] 101 mmol/L 95-114 [facility] Serum or plasma creatinine m easurement with calculation of estimated glomerular filtron 03-12-2020 Creatinine [Mass/Vol] 1.59 mg/dL 0.64-1.27 [facility] Serum or plasma glucose pedro urement (mass/volume)on 03-12-2020 Glucose [Mass/Vol] 93 mg/dL 70-100 [facility] Comment on above: ADA recommended refe rence rangeRandom Glucose Reference Range is dependent on time and content of last meal. Glucose of more than 200 mg/dL in a nonstressed, ambulatory subject supports the diagnosis of Diabetes Mellitus. Serum or plasma potassium me asurement (moles/volume)on 03-12-2020 Potassium [Moles/Vol] 4.1 mmol/L 3.5-5.1 [facility] Serum or plasma sodium measu rement (moles/volume)on 03-12-2020 Sodium [Moles/Vol] 137 mmol/L 136-146 [facility] Serum or plasma total carbon dioxide measurement (moles/volume)on 03-12-2020 CO2 [Moles/Vol] 24.3 mmol/L 22.0-30.0 [facility] Serum or plasma urea nitroge n measurement (mass/volume)on 03-12-2020 Urea nitrogen [Mass/Vol] 26 mg/dL 9- [facility] MAGNESIUMon 02-09-2020 Magnesium [Mass/Vol] 2.0 mg/dL Normal 1.5-2.5 [facility] Comment on above: Performed By: #### 7 26, 797, 066 #### [facility], [address] [place] [address] Machine Splitter: Catrachito Mata MD PHOSPHATE ( PHOSPHORUS)on 02-09-2020 Phosphate [Mass/Vol] 2.8 mg/dL Normal 2.1-4.3 [facility] Comment on above: Performed By: #### 7 88, 650, 434 #### [facility] [address] Machine Splitter: Catrachito Mata MD URIC ACIDon 02-09-2020 Urate [Mass/Vol] 7.2 mg/dL Normal 4.0-8.0 [facility] Comment on above: Result Comment: Ther apeutic target for gout patients: <6.0 mg/dL NO COLLECTION DATE RECEIVED. WE HAVE USED THE DATE THE SPECIMEN WAS RECEIVED BY THIS LABORATORY THE COLLECTION DATE. IF THIS IS INCORRECT, PLEASE CONTACT CLIENT SERVICES. PHONE NUMBER: [phone] Performed By: #### 7 03, 898, 030 #### [facility] [place] [address] Machine Splitter: Catrachito Mata MD URIC ACIDon 08-05-2019 Urate [Mass/Vol] 7.2 mg/dL Normal 4.0-8.0 [facility] Comment on above: Result Comment: Ther apeutic target for gout patients: <6.0 mg/dL NO COLLECTION DATE RECEIVED. WE HAVE USED THE DATE THE SPECIMEN WAS RECEIVED BY THIS LABORATORY THE COLLECTION DATE. IF THIS IS INCORRECT, PLEASE CONTACT CLIENT SERVICES. PHONE NUMBER: [phone] Performed By: #### 9 05 #### [facility], [address] [place] [id number] Machine Splitter: Catrachito Mata MD Vital Signs Date Time Vital Sign Value Performing Clinician Facility 04-03-2024 08:51-0500 Body temperature 98.2 [degF] Mc Bobby MD Work Phone: [employer] 04-03-2024 08:51-0500 Diastolic blood pressure 64 mm[Hg] [facility] 04-03-2024 08:51-0500 Heart rate 94 /min Mc [facility] 04-03-2024 08:51-0500 Respiratory rate 18 /min Mc [facility] 04-03-2024 08:51-0500 SaO2% (BldA) [Mass fraction] 97 % Mc Bobby [facility] 04-03-2024 08:51-0500 Systolic blood pressure 137 mm[Hg] Mc [facility] 03-29-2024 12:09-0500 Body height 182.2 cm Mc Bobby MD Work Phone: [employer] 03-29-2024 12:09-0500 Body mass index (BMI) [Ratio] 27.72 kg/m2 Mc Bobby MD Work Phone: [employer] 03-29-2024 12:09-0500 Body weight 92.08 kg Mc Bobby MD Work Phone: [facility] 03-21-2024 13:10-0500 Body height 177.8 cm Mago Mcclendon MD Work Phone: [facility] 03-21-2024 13:10-0500 Body mass index (BMI) [Ratio] 30.16 kg/m2 Mago Mcclendon MD Work Phone: [facility] 03-21-2024 13:10-0500 Body temperature 97.81 [degF] Mago Mcclendon MD Work Phone: [facility] 03-21-2024 13:10-0500 Body weight 95.35 kg Mago Mcclendon MD Work Phone: [facility] 03-21-2024 13:10-0500 Diastolic blood pressure 70 mm[Hg] Mago Mcclendon MD Work Phone: [facility] 03-21-2024 13:10-0500 Heart rate 93 /min Mago Mcclendon MD Work Phone: [facility] 03-21-2024 13:10-0500 SaO2% (BldA) [Mass fraction] 98 % Mago Mcclendon MD Work Phone: [facility] 03-21-2024 13:10-0500 Systolic blood pressure 128 mm[Hg] Mago Mcclendon MD Work Phone: [facility] 10-07-2023 10:53-0400 Body height 177.8 cm Roberta Patino APRN-INSOLVENCY PRACTITIONER Work Phone: [facility] 10-07-2023 10:53-0400 Body mass index (BMI) [Ratio] 29.79 kg/m2 Roberta Patino APRN-INSOLVENCY PRACTITIONER Work Phone: [facility] 10-07-2023 10:53-0400 Body temperature 98.1 [degF] Roberta Patino APRN-INSOLVENCY PRACTITIONER Work Phone: [facility] 10-07-2023 10:53-0400 Body weight 94.17 kg Roberta Patino APRN-[employer]YRA Work Phone: [facility] 10-07-2023 10:53-0400 Diastolic blood pressure 70 mm[Hg] Roberta Patino APRN-INSOLVENCY PRACTITIONER Work Phone: [facility] 10-07-2023 10:53-0400 Heart rate 86 /min Roberta Patino APRN-INSOLVENCY PRACTITIONER Work Phone: [facility] 10-07-2023 10:53-0400 SaO2% (BldA) [Mass fraction] 99 % Roberta Patino APRN-INSOLVENCY PRACTITIONER Work Phone: [facility] 10-07-2023 10:53-0400 Systolic blood pressure 136 mm[Hg] Roberta Patino APRN-INSOLVENCY PRACTITIONER Work Phone: [facility] 08-31-2023 10:15-0400 Body height 177.8 cm Roberta Patino APRN-INSOLVENCY PRACTITIONER Work Phone: [facility] 08-31-2023 10:15-0400 Body mass index (BMI) [Ratio] 29.56 kg/m2 Roberta Patino APRN-INSOLVENCY PRACTITIONER Work Phone: [facility] 08-31-2023 10:15-0400 Body temperature 98.2 [degF] Roberta Patino APRN-INSOLVENCY PRACTITIONER Work Phone: [facility] 08-31-2023 10:15-0400 Body weight 93.44 kg Roberta Patino APRN-INSOLVENCY PRACTITIONER Work Phone: [facility] 08-31-2023 10:15-0400 Diastolic blood pressure 78 mm[Hg] Roberta Patino APRN-INSOLVENCY PRACTITIONER Work Phone: [facility] 08-31-2023 10:15-0400 Heart rate 95 /min Roberta Patino APRN-INSOLVENCY PRACTITIONER Work Phone: [facility] 08-31-2023 10:15-0400 SaO2% (BldA) [Mass fraction] 97 % Roebrta Sukumar ASPHALT PAVER-INSOLVENCY PRACTITIONER Work Phone: [facility] 08-31-2023 10:15-0400 Systolic blood pressure 140 mm[Hg] Roberta Galvinler ASPHALT PAVER-INSOLVENCY PRACTITIONER Work Phone: [facility] 08-19-2023 14:07-0400 Body height 182.25 cm ASPHALT PAVER Roberta Sukumar Work Phone: [facility] 08-19-2023 14:07-0400 Body mass index (BMI) [Ratio] 28.3 kg/m2 ASPHALT PAVER Roberta Sukumar Work Phone: [facility] 08-19-2023 14:07-0400 Body temperature 97.5 [degF] ASPHALT PAVER Roberta Sukumar Work Phone: [facility] 08-19-2023 14:07-0400 Body weight 93.89 kg ASPHALT PAVERAbel Granados Sukumar Work Phone: [facility] 08-19-2023 14:07-0400 Diastolic blood pressure 76 mm[Hg] ASPHALT PAVERAbel Granados Sukumar Work Phone: [facility] 08-19-2023 14:07-0400 Heart rate 96 /min ASPHALT PAVER Roberta Sukumar Work Phone: [facility] 08-19-2023 14:07-0400 Respiratory rate 16 /min ASPHALT PAVER Roberta Sukumar Work Phone: [facility] 08-19-2023 14:07-0400 SaO2% (BldA) [Mass fraction] 98 % ASPHALT PAVERAbel Granados Sukumar Work Phone: [facility] 08-19-2023 14:07-0400 Systolic blood pressure 124 mm[Hg] ASPHALT PAVER Robertaganesh Patino Work Phone: [facility] 07-21-2023 10:35-0400 Diastolic blood pressure 71 mm[Hg] ASPHALT PAVERAbel Granados Sukumar Work Phone: [facility] 07-21-2023 10:35-0400 Heart rate 84 /min ASPHALT PAVERAbel Granados Sukumar Work Phone: [facility] 07-21-2023 10:35-0400 Respiratory rate 16 /min ASPHALT PAVERAbel Granados Sukumar Work Phone: [facility] 07-21-2023 10:35-0400 SaO2% (BldA) [Mass fraction] 97 % ASPHALT PAVERAbel Granados Sukumar Work Phone: [facility] 07-21-2023 10:35-0400 Systolic blood pressure 126 mm[Hg] ASPHALT PAVERAbel Granados Sukumar Work Phone: [facility] 07-21-2023 10:02-0400 Inhaled oxygen flow rate 3 L/min ASPHALT PAVERAbel Granados Sukumar Work Phone: [facility] 07-21-2023 09:20-0400 Body height 182.88 cm ASPHALT PAVERAbel Granados Sukumar Work Phone: [facility] 07-21-2023 09:20-0400 Body weight 93.44 kg LINDA Granados Sukumar Work Phone: [facility] 06-25-2023 10:14-0400 Body height 185.42 cm ASPHALT PAVERAbel Granados Sukumar Work Phone: [facility] 06-25-2023 10:14-0400 Body mass index (BMI) [Ratio] 28 kg/m2 ASPHALT PAVERAbel Granados Sukumar Work Phone: [facility] 06-25-2023 10:14-0400 Body weight 96.61 kg LINDA Granados Sukumar Work Phone: [facility] 02-18-2023 14:00-0500 Body height 185.42 cm Aziz Bakhous Other [employer] Other 02-18-2023 14:00-0500 Body mass index (BMI) [Ratio] 27.86 kg/m2 Aziz Bakhous Other [employer] Other 02-18-2023 14:00-0500 Body temperature 98.8 [degF] Azarianna Bakhous Other [employer] Other 02-18-2023 14:00-0500 Body weight 95.8 kg Aziz Bakhous Other [employer] Other 02-18-2023 14:00-0500 Diastolic blood pressure 81 mm[Hg] Aziz Bakhous Other [employer] Other 02-18-2023 14:00-0500 Respiratory rate 18 /min Cristofer Bakhous Other [employer] Other 02-18-2023 14:00-0500 SaO2% (BldA) [Mass fraction] 97 % Azarianna Bakhous Other [employer] Other 02-18-2023 14:00-0500 Systolic blood pressure 144 mm[Hg] Aziz Bakhous Other [employer] Other 08-26-2022 15:00-0400 Body height 185.42 cm Aziz Bakhous Other [employer] Other 08-26-2022 15:00-0400 Body mass index (BMI) [Ratio] 26.91 kg/m2 Aziz Bakhous Other [employer] Other 08-26-2022 15:00-0400 Body temperature 97.3 [degF] Cristofer Grey Other [employer] Other 08-26-2022 15:00-0400 Body weight 92.53 kg Cristofer Grey Other [employer] Other 08-26-2022 15:00-0400 Diastolic blood pressure 73 mm[Hg] Cristofer Grey Other [employer] Other 08-26-2022 15:00-0400 Respiratory rate 18 /min Cristofer Grey Other [employer] Other 08-26-2022 15:00-0400 SaO2% (BldA) [Mass fraction] 98 % Cristofer Grey Other [employer] Other 08-26-2022 15:00-0400 Systolic blood pressure 119 mm[Hg] Cristofer Gery Other [employer] Other 06-10-2022 14:40-0400 Body height 185.42 cm Willian Nuñez Other [employer] Other 06-10-2022 14:40-0400 Body mass index (BMI) [Ratio] 27.7 kg/m2 Willian Nuñez Other [employer] Other 06-10-2022 14:40-0400 Body weight 95.26 kg Willian Nuñez Other [employer] Other 06-10-2022 14:40-0400 Diastolic blood pressure 62 mm[Hg] Willian Nuñez Other [employer] Other 06-10-2022 14:40-0400 Systolic blood pressure 170 mm[Hg] Willian Nuñez Other [employer] Other 02-18-2022 17:20-0500 Body height 185.42 cm Azarianna Walliss Other [employer] Other 02-18-2022 17:20-0500 Body mass index (BMI) [Ratio] 27.73 kg/m2 Azarianna Bakhous Other [employer] Other 02-18-2022 17:20-0500 Body temperature 96.9 [degF] Azarianna Walliss Other [employer] Other 02-18-2022 17:20-0500 Body weight 95.35 kg Azarianna Henninghous Other [employer] Other 02-18-2022 17:20-0500 Diastolic blood pressure 89 mm[Hg] Aziz Bakhous Other [employer] Other 02-18-2022 17:20-0500 Respiratory rate 18 /min Cristofer Bakhous Other [employer] Other 02-18-2022 17:20-0500 SaO2% (BldA) [Mass fraction] 97 % Azarianna Bakhous Other [employer] Other 02-18-2022 17:20-0500 Systolic blood pressure 166 mm[Hg] Aziz Bakhous Other [employer] Other 10-29-2021 12:20-0400 Body height 185.42 cm Willian Nuñez Other [employer] Other 10-29-2021 12:20-0400 Body mass index (BMI) [Ratio] 27.7 kg/m2 Willian Nuñez Other [employer] Other 10-29-2021 12:20-0400 Body weight 95.26 kg Willian Nuñez Other [employer] Other 08-21-2021 16:00-0400 Body height 185.42 cm Cristofer Walliss Other [employer] Other 08-21-2021 16:00-0400 Body mass index (BMI) [Ratio] 27.73 kg/m2 Aziz Bakhous Other [employer] Other 08-21-2021 16:00-0400 Body temperature 96.5 [degF] Aziz Kadis Other [employer] Other 08-21-2021 16:00-0400 Body weight 95.35 kg Aziz Bakhous Other [employer] Other 08-21-2021 16:00-0400 Diastolic blood pressure 71 mm[Hg] Aziz Bakhous Other [employer] Other 08-21-2021 16:00-0400 Respiratory rate 18 /min Aziz Bakhous Other [employer] Other 08-21-2021 16:00-0400 SaO2% (BldA) [Mass fraction] 96 % Aziz Bakhous Other [employer] Other 08-21-2021 16:00-0400 Systolic blood pressure 125 mm[Hg] Aziz Bakhous Other [employer] Other 07-30-2021 12:00-0400 Body height 185.42 cm Willian Nuñez Other [employer] Other 07-30-2021 12:00-0400 Body mass index (BMI) [Ratio] 28.76 kg/m2 Willian Nuñez Other [employer] Other 07-30-2021 12:00-0400 Body weight 98.88 kg Willian Nuñez Other [employer] Other 07-15-2021 11:00-0400 Body height 185.42 cm Willian Nuñez Other [employer] Other 07-15-2021 11:00-0400 Body mass index (BMI) [Ratio] 27.84 kg/m2 Willian Nuñez Other [employer] Other 07-15-2021 11:00-0400 Body weight 95.71 kg Willian Nuñez Other [employer] Other 04-25-2021 14:00-0500 Body height 185.42 cm Willian Nuñez Other [employer] Other 04-25-2021 14:00-0500 Body mass index (BMI) [Ratio] 27.84 kg/m2 Willian Nuñez Other [employer] Other 04-25-2021 14:00-0500 Body weight 95.71 kg Willian Nuñez Other [employer] Other 03-14-2021 15:40-0500 Body height 185.42 cm Willian Nuñez Other [employer] Other 03-14-2021 15:40-0500 Body mass index (BMI) [Ratio] 27.84 kg/m2 Willian Nuñez Other [employer] Other 03-14-2021 15:40-0500 Body weight 95.71 kg Willian Nuñez Other [employer] Other 12-13-2020 15:40-0400 Body height 185.42 cm Willian Nuñez Other [employer] Other 12-13-2020 15:40-0400 Body mass index (BMI) [Ratio] 28.36 kg/m2 Willian Nuñez Other [employer] Other 12-13-2020 15:40-0400 Body weight 97.52 kg Willian Juvenal Other [employer] Other 12-13-2020 15:40-0400 Diastolic blood pressure 75 mm[Hg] Willian Nuñez Other [employer] Other 12-13-2020 15:40-0400 Systolic blood pressure 130 mm[Hg] Willian Nuñez Other [employer] Other Encounters Encounter Date Encounter Type Care Provider Facility Start: 05-10-2024 End: 05-10-2024 ambulatory [facility] Start: 05-09-2024 End: 05-09-2024 ambulatory [facility] Start: 05-05-2024 End: 05-05-2024 ambulatory [facility] Start: 05-05-2024 End: 05-05-2024 Phys/qhp telephone evaluation 5-10 min Joel Gutierrez ASPHALT PAVER-INSOLVENCY PRACTITIONER Work Phone: [facility] Comment on above: Stage 3a chronic kid melissa disease (CMS-HCC) (Primary Dx) Start: 05-04-2024 End: 05-04-2024 Telephone encounter Roberta Patino ASPHALT PAVER-INSOLVENCY PRACTITIONER Work Phone: [facility] Start: 04-29-2024 End: 04-29-2024 ambulatory ROBERTA PATINO [facility] Start: 04-29-2024 End: 04-29-2024 Telephone encounter Negra Woodall [facility] Start: 04-28-2024 End: 04-28-2024 Orders Only Roberta Patino ASPHALT PAVER-INSOLVENCY PRACTITIONER Work Phone: [facility] Comment on above: Stage 3a chronic kid melissa disease ([facility]-HCC) (Primary Dx); Essential hypertension, benign; Edema of both lower legs; Chronic diastolic congestive heart failure (CMS-HCC) Start: 04-27-2024 End: 04-28-2024 Telephone encounter Roberta Patino ASPHALT PAVER-INSOLVENCY PRACTITIONER Work Phone: [facility] Start: 04-22-2024 End: 04-22-2024 Refill Fern Puentes NP Work Phone: [facility] Start: 03-29-2024 End: 04-03-2024 Evaluation and management of inpatient Mc Bobby MD Work Phone: [facility] Comment on above: Lumbar stenosis with neurogenic claudication (Primary Dx) Start: 03-21-2024 End: 03-21-2024 Office outpatient visit 15 minutes Mago Mcclendon MD Work Phone: [facility] Comment on above: Essential hypertensi on, benign (Primary Dx); Stage 3a chronic kidney disease ([facility]-HCC); Spinal stenosis of lumbar region with neurogenic claudication; Lumbosacral spondylosis without myelopathy Start: 03-21-2024 End: 03-21-2024 ambulatory MAGO MCCLENDON [facility] Start: 03-16-2024 Encounter for other [facility]procedural [facility] Start: 03-16-2024 End: 03-16-2024 [facility] Start: 03-16-2024 Encounter for preprocedural laboratory examination CRISTOFER GREY [facility] Start: 03-12-2024 End: 03-12-2024 Orders Only Roberta Loveuessler ASPHALT PAVER-INSOLVENCY PRACTITIONER Work Phone: [facility] Comment on above: Urinary frequency (P rimary Dx) Start: 03-11-2024 End: 03-12-2024 Refill Roberta Madan Sukumar ASPHALT PAVER-INSOLVENCY PRACTITIONER Work Phone: [facility] Start: 03-10-2024 End: 03-12-2024 [facility] Start: 02-27-2024 End: 02-27-2024 Refill Mago [facility]clendon MD [facility] Comment on above: Dermatitis Start: 02-22-2024 End: 02-22-2024 [facility]ulatory [facility] Start: 12-25-2023 End: 12-28-2023 Refill Joel Gutierrez ASPHALT PAVER-INSOLVENCY PRACTITIONER Work Phone: [facility] Comment on above: Enlarged prostate wi th urinary obstruction Start: 11-25-2023 End: 11-25-2023 Orders Only Roberta Patino ASPHALT PAVER-INSOLVENCY PRACTITIONER Work Phone: [facility] Comment on above: SARS-CoV-2 positive (Primary Dx) Start: 11-24-2023 End: 11-25-2023 Orders Only Roberta Madan Sukumar ASPHALT PAVER-INSOLVENCY PRACTITIONER Work Phone: [facility] Comment on above: SARS-CoV-2 positive (Primary Dx) Start: 11-23-2023 End: 11-25-2023 Telephone encounter [facility] Start: 11-17-2023 End: 11-17-2023 Refill Roxi Lorenzo [facility] Comment on above: Edema of both lower legs Start: 11-10-2023 End: 11-10-2023 Refill Roxi Lorenzo [facility] Comment on above: Dermatitis Start: 11-04-2023 End: 11-04-2023 Orders Only Roberta Patino ASPHALT PAVER-INSOLVENCY PRACTITIONER Work Phone: [facility] Comment on above: Lumbosacral spondylo sis without myelopathy (Primary Dx); Cervical neuropathic pain; S/P laminectomy; Spinal stenosis of lumbar region with neurogenic claudication Start: 10-27-2023 End: 10-27-2023 Office outpatient visit 15 minutes Mago Mcclendon MD Work Phone: [facility] Comment on above: Bilateral impacted c erumen (Primary Dx) Start: 10-27-2023 End: 10-27-2023 ambulatory MAGO MCCLENDON [facility] Start: 10-22-2023 End: 10-22-2023 ambulatory [facility] Work Phone: Start: 10-22-2023 End: 10-22-2023 Patient encounter procedure [facility] Work Phone: Start: 10-19-2023 End: 10-19-2023 Orders Only Joel Gauthiers ASPHALT PAVER-INSOLVENCY PRACTITIONER Work Phone: [facility] Comment on above: Essential hypertensi on, benign; Cervical neuropathic pain Start: 10-14-2023 End: 10-14-2023 ambulatory ASPHALT PAVER Roberta Patino Work Phone: [facility] Work Phone: Start: 10-14-2023 End: 10-14-2023 Patient encounter procedure LINDA Patino Work Phone: [facility] Work Phone: Start: 10-14-2023 Non-patient / Non-visit [facility] Work Phone: Start: 10-07-2023 Patient encounter status Genevieve h Sukumar ASPHALT PAVER-INSOLVENCY PRACTITIONER Work Phone: [facility] Start: 10-07-2023 End: 10-07-2023 Patient encounter procedure Roberta A Sukumar ASPHALT PAVER-INSOLVENCY PRACTITIONER Work Phone: [facility] Comment on above: Medicare annual well ness visit, subsequent (Primary Dx); Encounter for immunization; Dermatitis; Right ear impacted cerumen; Edema of both lower legs Start: 10-07-2023 End: 10-07-2023 ambulatory ROBERTA PATINO [facility] Start: 10-05-2023 End: 10-05-2023 Refill Emirysqian Prasadk [facility] Comment on above: Essential hypertensi on, benign Start: 09-25-2023 End: 09-26-2023 Refill Roxi Lorenzo [facility] Start: 09-24-2023 End: 09-24-2023 Patient encounter procedure LINDA Patino Work Phone: [facility] Pain Management Work Phone: Start: 09-24-2023 End: 09-24-2023 ambulatory ASPHALT PAVER Roberta Patino Work Phone: [facility] Start: 09-18-2023 End: 09-18-2023 ambulatory ASPHALT PAVER Roberta Patino Work Phone: [facility] Work Phone: Start: 09-18-2023 End: 09-18-2023 Patient encounter procedure LINDA Patino Work Phone: [facility] Work Phone: Start: 08-31-2023 End: 08-31-2023 Office outpatient visit 15 minutes Roberta Patino ASPHALT PAVER-INSOLVENCY PRACTITIONER Work Phone: [facility] Comment on above: Essential hypertensi on, benign (Primary Dx); Stage 3a chronic kidney disease ([facility]-HCC); Spinal stenosis of lumbar region with neurogenic claudication Start: 08-31-2023 End: 08-31-2023 ambulatory ROBERTA PATINO [facility] Start: 08-26-2023 Non-patient / Non-visit ASPHALT PAVER Negro wheeler Sukumar Work Phone: [facility] Work Phone: Start: 08-19-2023 End: 08-19-2023 ambulatory ASPHALT PAVER Roberta Patino Work Phone: [facility] Work Phone: Start: 08-19-2023 End: 08-19-2023 Patient encounter procedure LINDA Saucedoith Sukumar Work Phone: [facility] Nephrology Work Phone: Start: 08-18-2023 End: 08-18-2023 ambulatory ASPHALT PAVER Roberta Patino Work Phone: [facility] Work Phone: Start: 08-18-2023 End: 08-18-2023 Patient encounter procedure LINDA Saucedoith Sukumar Work Phone: [facility] Pain Management [facility] Work Phone: Start: 08-17-2023 End: 08-17-2023 Orders Only Roberta Patino ASPHALT PAVER-INSOLVENCY PRACTITIONER Work Phone: [facility] Comment on above: Cervical neuropathic pain Start: 08-12-2023 End: 08-12-2023 Refill Adysan Sleek [employer] [facility] Start: 07-22-2023 End: 07-22-2023 Orders Only Roberta Patino ASPHALT PAVER-INSOLVENCY PRACTITIONER Work Phone: [facility] Comment on above: Dermatitis Start: 07-21-2023 End: 07-21-2023 ambulatory Angel Solomon Facility:[facility] Start: 07-21-2023 Non-patient / Non-visit ASPHALT PAVER J udith Sukumar Work Phone: [facility] Work Phone: Start: 07-21-2023 End: 07-21-2023 Admission to same day surgery center ASPHALT PAVERAbel Patino Work Phone: [facility] Work Phone: Start: 07-16-2023 End: 07-16-2023 ambulatory Angel Solomon Facility:[facility] Start: 07-16-2023 End: 07-16-2023 ambulatory LINDA Patino Work Phone: [facility] Work Phone: Start: 07-16-2023 End: 07-16-2023 Patient encounter procedure LINDA Patino Work Phone: [facility] Work Phone: Start: 07-03-2023 End: 07-03-2023 Refill Adysan Sleek DAVONTE [facility] Comment on above: Dermatitis Start: 06-25-2023 End: 06-25-2023 ambulatory Willian Anahi Nuñez Facility:[facility] Start: 06-25-2023 End: 06-25-2023 ambulatory LINDA Patino Work Phone: [facility] Work Phone: Start: 06-25-2023 End: 06-25-2023 Patient encounter procedure LINDA Patino Work Phone: [facility] Work Phone: Start: 06-24-2023 End: 06-24-2023 Refill Adysan Sleek [employer] [facility] Comment on above: Enlarged prostate wi th urinary obstruction Start: 05-29-2023 Refill Rajani Thorne CNA [facility] Comment on above: Essential hypertensi on, benign Start: 05-14-2023 Telephone encounter Rajani Thorne HE [facility] Comment on above: Care Management Start: 04-06-2023 Refill Roberta blount ASPHALT PAVER-INSOLVENCY PRACTITIONER Work Phone: [facility] Start: 03-20-2023 Refill Roberta blount ASPHALT PAVER-INSOLVENCY PRACTITIONER Work Phone: [facility] Start: 03-12-2023 Orders Only Roberta blount ASPHALT PAVER-INSOLVENCY PRACTITIONER Work Phone: [facility] Comment on above: Dermatitis Start: 02-18-2023 End: 02-18-2023 ambulatory Aziz Bakhous Other [employer] Other Start: 02-18-2023 Office outpatient vi sit 25 minutes Aziz Bakhous [facility] Start: 08-26-2022 End: 08-26-2022 ambulatory Aziz Bakhous Other [employer] Other Start: 08-26-2022 Office outpatient vi sit 15 minutes Aziz Bakhous [facility] Start: 06-10-2022 End: 06-10-2022 ambulatory Willian Nuñez Other [employer] Other Start: 06-10-2022 Office outpatient vi sit 15 minutes Willian Nuñez [facility] Neuro[facility] Start: 02-18-2022 End: 02-18-2022 ambulatory Aziz Bakhous Other [employer] Other Start: 02-18-2022 Office outpatient vi sit 15 minutes Aziz Bakhous [facility] Start: 02-04-2022 End: 02-04-2022 ambulatory [employer] PAVER Roberta Patino Work Phone: [facility] Work Phone: Start: 02-04-2022 End: 02-04-2022 Patient encounter procedure ASPHALT PAVERAbel Patino Work Phone: [facility]-XRay [facility] Start: 10-29-2021 End: 10-29-2021 ambulatory Willian Nuñez Other [employer] Other Start: 10-29-2021 Office outpatient vi sit [address] Nuñ[address] [facility] Neurosurgery Start: 10-29-2021 End: 10-29-2021 Patient encounter procedure ASPHALT PAVER Roberta Patino Work Phone: [facility]-XRay [facility] Start: 09-24-2021 Encounter for genera l adult medical examination without abnormal findings ROBERTAGANESH PATINO [facility] Start: 09-24-2021 Patient encounter procedure Roberta Patino ASPHALT PAVER-[facility] Work Phone: [facility] Start: 08-21-2021 End: 08-21-2021 ambulatory Aziz Bakanastasias Other [employer] Other Start: 08-21-2021 Office outpatient vi sit 15 minutes Aziz Bakanastasias [facility] Nephrology Start: 08-14-2021 End: 08-14-2021 Patient encounter procedure ASPHALT PAVERAbel Patino Work Phone: [facility]-Lab [facility] Start: 07-30-2021 End: 07-30-2021 ambulatory Willian Nuñez Other [employer] Other Start: 07-30-2021 Postop follow up vis it related to original px Willian Nuñez [facility] Neurosurgery Start: 07-15-2021 (Post-Op) Post-Op Willian Nuñez [facility] Start: 07-15-2021 End: 07-15-2021 ambulatory Willian Nuñez Other [employer] Other Start: 07-08-2021 End: 07-08-2021 ambulatory Willian Nuñez Other [employer] Other Start: 07-08-2021 Telephone encounter Willian Nuñze [facility] Neurosurgery Start: 07-01-[facility] Start: 07-01-2021 End: 07-01-2021 ambulatory Willian Nuñez Other [employer] Other Start: 06-28-2021 End: 06-28-2021 ambulatory Lynn Garcia Other [employer] Other Start: 06-28-2021 Telephone encounter Lynn Radha [facility] Nephrology Start: 04-25-2021 End: 04-25-2021 ambulatory Willian Nuñez Other [employer] Other Start: 04-25-2021 Office outpatient vi sit [address] [facility] Neurosurgery Start: 04-10-2021 End: 04-10-2021 ambulatory Willian Nuñez Other [employer] Other Start: 04-10-2021 Telephone encounter Willian Nuñez [facility] Neurosurgery Start: 03-14-2021 End: 03-14-2021 ambulatory Willian Nuñez Other [employer] Other Start: 03-14-2021 Office outpatient vi sit [address] [facility] Neurosurgery Start: 02-26-2021 End: 02-26-2021 ambulatory Lynn Virgenangeli Other [employer] Other Start: 02-26-2021 Telephone encounter Lynn Virgenangeli [facility] [employer] Start: 12-13-2020 Office outpatient vi sit 15 [address] Nuñez [facility] Neuro[facility] Start: 03-16-2020 End: 03-16-2020 Patient encounter procedure Jared Petty -Pre-Surgical Testing Start: 03-12-2020 End: 03-12-2020 Patient encounter procedure Jared Petty -Pre-Surgical Testing Start: 02-14-2020 End: 02-14-2020 Patient encounter procedure Jared Petty -XRay [facility] Procedures Date Procedure Procedure Detail [...] Work Phone: Comment on above: Performed at [facility] [address] [place] [address] Start: 03-29-2024 Blood typing serologic abo Luiz COVINGTON Work Phone: Start: 03-29-2024 Potassium serum plasma/whole blood Mc Bobby MD Work Phone: Start: 02-22-2024 Adult depression scr eening assessment Mago Mcclendon MD Work Phone: Start: 10-07-2023 Adult depression scr eening assessment Roberta Patino [employer] PAVER-INSOLVENCY PRACTITIONER Work Phone: Start: 07-21-2023 Injection of local anesthetic into sacroiliac joint LINDA Patino Work Phone: Start: 07-16-2023 X-ray of lumbar spin e, four views LINDA Patino Work Phone: Start: 06-25-2023 X-ray of cervical spine LINDA Patino Work Phone: Start: 09-26-2022 Adult depression scr eening assessment Roberta Patino [employer] P[employer]ER-INSOLVENCY PRACTITIONER Work Phone: Start: 02-04-2022 X-ray of cervical spine LINDA Patino Work Phone: Start: 10-29-2021 X-ray of cervical spine LINDA Patino Work Phone: Start: 02-14-2020 Radiography of cervi lan spine Jared Petty Plan of Treatment Date Care Activity Detail Author Start: 09-29-2032 DTaP,Tdap and Td Vaccines (2 - Td or Tdap) DTaP,Tdap and Td Vaccines (2 - Td or Tdap) [facility] Start: 09-29-2032 DTaP/Tdap/Td vaccine (2 - Td or Tdap) DTaP/Tdap/Td vaccine (2 - Td or Tdap) [facility] Start: 05-05-2025 Tobacco Screening Tobacco Screening [facility] Start: 03-21-2025 Tobacco Screening Tobacco Screening [facility] Start: 02-21-2025 Depression Screening Depression Scre ening [facility] Start: 02-21-2025 Tobacco Screening Tobacco Screening [facility] Start: 10-06-2024 Adult BMI Screening Adult BMI Screen ing [facility] Start: 10-06-2024 Depression Screening Depression Scre ening [facility] Start: 10-06-2024 Fall Risk Screening Fall Risk Screen ing [facility] Start: 10-06-2024 Medicare Annual Well ness Visit Medicare Annual Wellness Visit [facility] Start: 10-06-2024 Tobacco Screening Tobacco Screening [facility] Start: 08-30-2024 Adult BMI Screening Adult BMI Screen ing [facility] Start: 08-30-2024 Tobacco Screening Tobacco Screening [facility] Start: 06-22-2024 End: 06-22-2024 Patient encounter procedure 06/22/2024 3:00 PM EDT Office Visit [facility] [address] [place] [address] [place] [address] Roberta Patino, [employer] PAVER-INSOLVENCY PRACTITIONER [address], [place] [address] [facility] Start: 06-15-2024 End: 06-15-2024 Patient encounter procedure 06/15/2024 10:00 AM EDT Office Visit [facility] [address] [place] [address] [place] [address] Xi Wright I, PA [address] [place] [address] [facility] Start: 05-27-2024 End: 05-05-2025 Basic metabolic 2000 panel - Serum or Plasma Basic Metabolic Panel Lab Routine Stage 3a chronic kidney disease ([facility]) Expected: 05/27/2024, Expires: 05/05/[address] [facility] Comment on above: Expected: 05/27/2024 , Expires: 05/05/2025 Start: 05-09-2024 End: 05-05-2025 Basic metabolic 2000 panel - Serum or Plasma Basic Metabolic Panel Lab Routine Stage 3a chronic kidney disease ([facility]) Expected: 05/09/2024, Expires: 05/05/2025 [facility] Work Phone: Comment on above: Expected: 05/09/2024 , Expires: 05/05/2025 Start: 05-05-2024 End: 05-05-2024 Telemedicine consultation with patient 05/05/2024 11:40 AM EST Telemedicine [facility] [address] [place] [phone] Joel Gutierrez [employer] PAVER-INSOLVENCY PRACTITIONER [address] [place] [address] [facility] [place] [phone] [facility] Start: 03-23-2024 Annual Wellness Visi t (Medicare) Annual Wellness Visit (Medicare) [facility] Start: 02-26-2024 Adult BMI Screening Adult BMI Screen ing [facility] Start: 02-26-2024 Tobacco Screening Tobacco Screening [facility] Start: 02-22-2024 End: 02-22-2024 Patient encounter procedure 02/22/2024 2:40 PM EST Office Visit [facility] [address] [place] [phone] Roberta Patino, [employer] PAVER-INSOLVENCY PRACTITIONER [address] [facility] Eddie Damon, [address]ir [place], [place] [phone] [facility] Start: 11-30-2023 End: 11-30-2023 Patient encounter procedure 11/30/2023 3:20 PM EDT Office Visit [facility] [address] [place] [address] [place] [phone] Roberta Patino, [employer] PAVER-INSOLVENCY PRACTITIONER [address], [place] [address] [facility] Start: 11-18-2023 Fall Risk Screening Fall Risk Screen ing [facility] Start: 11-08-2023 COVID-19 Vaccine ( season) COVID-19 Vaccine ( season) [facility] Start: 11-08-2023 COVID-19 Vaccine ( season) COVID-19 Vaccine () [facility] Start: 11-08-2023 COVID-19 Vaccine ( season) COVID-19 Vaccine () [facility] Start: 11-08-2023 Influenza vaccination [facility] Start: 10-27-2023 End: 10-27-2023 Clinical Support 10/27/2023 10:00 AM EDT Clinical [facility] [address] [place] [phone] Mago Mcclendon MD [address] [facility], [place] [address] [facility] Start: 10-08-2023 Influenza vaccination Flu vaccine (# 1) [facility] Start: 10-07-2023 End: 10-07-2023 Patient encounter procedure 10/07/2023 10:40 AM EDT [facility] [address] [place] [address] [place] [phone] Roberta Patino, [employer] PAVER-INSOLVENCY PRACTITIONER [address], [place] [address] [facility] Start: 09-30-2023 Medicare Annual Well ness Visit Medicare Annual Wellness Visit [facility] Start: 09-27-2023 Depression Screening Depression Scre ening [facility] Start: 08-31-2023 End: 08-31-2023 Patient encounter procedure 08/31/2023 2:40 PM EDT [facility] [address] [place] [address] Roberta Patino, [employer] PAVER-INSOLVENCY PRACTITIONER [address], [place] [address] [facility] Start: 08-31-2023 End: 08-31-2023 Patient encounter procedure 08/31/2023 10:20 AM EDT Office [facility] [address] [place] [address] Roberta Patino, [employer] PAVER-INSOLVENCY PRACTITIONER [address], [place] [address] [facility] Start: 07-21-2023 [facility] Start: 07-16-2023 X-ray of lumbar spin e, four views XR lumbar spine AP/LAT/FLX/EXT [facility] Start: 06-25-2023 X-ray of cervical spine XR cer v spine AP/LAT/FLX/EXT [facility] Start: 04-14-2023 COVID-19 Vaccine ( season) COVID-19 Vaccine ( season) [facility] Start: 11-24-2022 Administration of varicella zoster vaccine Zoster (Shingles) Vaccine (3 of 3) [facility] Start: 11-24-2022 Shingles vaccine (3 of 3) Shingles vaccine (3 of 3) [facility] Start: 11-07-2022 Influenza vaccination Influenza Vacc ine [facility] Start: 01-19-2015 Respiratory Syncytia l Virus (RSV) or age 60 yrs+ (1 - 1-dose 75+ series) Respiratory Syncytial Virus (RSV) or age 60 yrs+ (1 - 1-dose 75+ series) [employer] Start: 01-19-1958 Adult BMI Follow Up Plan Adult BMI Follow Up Plan [employer] Start: 1952 Depression Screen Depression Screen [facility] End: 04-05-2024 Basic metabolic 2000 panel - Serum or Plasma Basic Metabolic Panel Lab Routine Daily for 1 Weeks starting 03/30/2024 until 04/05/2024, 5 completed [facility] Comment on above: Daily for [address] arting 03/30/2024 until 04/05/2024, 5 completed End: 04-28-2025 CBC W Auto Differential panel - Blood CBC auto differential Lab Routine Stage 3a chronic kidney disease ([facility]) Essential hypertension, benign Edema of both lower legs 1 Occurrences starting 04/28/2024 until 04/28/2025 [employer] Comment on above: 1 Occurrences starti ng 04/28/2024 until 04/28/2025 End: 04-28-2025 Comprehensive metabolic 2000 panel - Serum or Plasma Comprehensive metabolic panel Lab Routine Stage 3a chronic kidney disease ([facility]) Essential hypertension, benign Edema of both lower legs 1 Occurrences starting 04/28/2024 until 04/28/2025 [facility] Comment on above: 1 Occurrences starti ng 04/28/2024 until 04/28/2025 End: 04-04-2024 Hemoglobin and Hematocrit Hemoglobin and Hematocrit Lab Routine Daily for 3 Days starting 04/02/2024 until 04/04/2024, 2 completed [facility] Comment on above: Daily for 3 Days sta rting 04/02/2024 until 04/04/2024, 2 completed End: 04-16-2024 Hemoglobin and Hematocrit Hemoglobin and Hematocrit Lab Routine Post Transfusion Post Transfusion Post Transfustion until discontinued starting 04/02/2024 [facility] Comment on above: Post Transfusion Pos t Transfusion Post Transfustion until discontinued starting 04/02/2024 End: 04-28-2025 Natriuretic peptide B [Mass/volume] in Blood B-type natriuretic peptide Lab Routine Stage 3a chronic kidney disease ([facility]) Essential hypertension, benign Edema of both lower legs Chronic diastolic congestive heart failure ([facility]) 1 Occurrences starting 04/28/2024 until 04/28/2025 [employer] Work Phone: Comment on above: 1 Occurrences starti ng 04/28/2024 until 04/28/2025 Oxygen therapy [Mini [facility]] Initiate Oxygen Therapy Protocol Respiratory Care Routine As Needed until discontinued starting 03/29/2024 [facility] Comment on above: As Needed until disc ontinued starting 03/29/2024 Patient Education [facility] Work Phone: Patient referral [facility] Work Phone: PREPARE RBC (CROSSMATCH), 2 Units PREPARE RBC (CROSSMATCH), 2 Units Blood Bank Routine 04/02/2024 8:28 AM EST Elite [facility] Renal function 2000 panel - Serum or Plasma [facility] Spirometry panel Incentive loren metry Respiratory Care Routine Every 2hr while awake until discontinued starting 03/29/2024 [facility]: Every 2hr while awak e until discontinued starting 03/29/2024 [facility] Immunizations Immunization Date Immunization Notes Care Provider Fa [facility] 10-07-2023 Pneumococcal Conjuga te 20-valent Roberta Patino [employer] P[employer]ER-INSOLVENCY PRACTITIONER Work Phone: [facility] 10-07-2023 Immunization, In Clinic,; Translations: [Drug or medicament (substance)] Roberta Patino [employer]HALT PAVER-INSOLVENCY PRACTITIONER Work Phone: [facility] 12-12-2022 Covid-19,mrna, Lnp-s , Pf, 50mcg/0.5ml 12+ Roberta Patino [employer] PAVER-INSOLVENCY PRACTITIONER Work Phone: [facility] 09-29-2022 tetanus toxoid, redu raji diphtheria toxoid, and acellular pertussis vaccine, adsorbed Roberta Patino [employer]HALT PAVER-INSOLVENCY PRACTITIONER Work Phone: [facility] 09-29-2022 zoster vaccine recombinant Roberta Patino ASPHALT PAVER-INSOLVENCY PRACTITIONER Work Phone: [facility] 09-29-2022 zoster vaccine, unspecified formulation Roberta Patino ASPHALT PAVER-INSOLVENCY PRACTITIONER Work Phone: [facility] 12-16-2021 Influenza, High-dose Seasonal, Quadrivalent, Preservative Free Fern Leblanc NATIONAL SALES EXECUTIVE Work Phone: [facility] 12-16-2021 SARS-COV-2 (COVID-19 ) vaccine, mRNA, spike protein, LNP, bivalent, preservative free, 30 mcg/0.3 mL dose, rhona-sucrose formulation Fern Leblanc NATIONAL SALES EXECUTIVE Work Phone: [facility] 12-16-2021 influenza virus vaccine, unspecified formulation Roberta Sukumar [employer]HALT PAVER-INSOLVENCY PRACTITIONER Work Phone: [facility] 01-16-2021 COVID-19 mRNA-1273 (Moderna) [employer] PAVER Roberta Patino Work Phone: [facility] 12-08-2020 Influenza Vaccine, Quadrivalent, Adjuvanted Roberta Patino ASPHALT PAVER-INSOLVENCY PRACTITIONER Work Phone: [facility] 05-07-2020 COVID-19, mRNA, LNP- S, PF, 100mcg/0.5mL Dose Roberta Sukumar [employer] PAVER-INSOLVENCY PRACTITIONER Work Phone: [facility] 05-04-2020 COVID-19 mRNA-1273 (Moderna) [employer] PAVER Roberta Patino Work Phone: [facility] 04-07-2020 COVID-19, mRNA, LNP- S, PF, 100mcg/0.5mL Dose Roberta Sukumar [employer] PAVER-INSOLVENCY PRACTITIONER Work Phone: [facility] 04-06-2020 COVID-19 mRNA-1273 (Moderna) [employer] PAVER Roberta Loveuessler Work Phone: [facility] 02-18-2020 influenza, injectabl e, quadrivalent, preservative free Roberta Sukumar [employer]HALT PAVER-INSOLVENCY PRACTITIONER Work Phone: [facility] 01-25-2019 Influenza, injectabl e, Madin Indore Canine Kidney, quadrivalent with preservative Roberta Sukumar ASPHALT PAVER-INSOLVENCY PRACTITIONER Work Phone: [facility] 01-25-2019 pneumococcal polysaccharide vaccine, 23 valent Roberta Sukumar ASPHALT PAVER-INSOLVENCY PRACTITIONER Work Phone: [facility] 01-13-2018 pneumococcal conjuga te vaccine, 13 valent Roberta Sukumar ASPHALT PAVER-INSOLVENCY PRACTITIONER Work Phone: [facility] 01-08-2018 influenza, injectabl e, quadrivalent, contains preservative Roberta Sukumar ASPHALT PAVER-INSOLVENCY PRACTITIONER Work Phone: [facility] 03-09-2014 zoster vaccine, live Roberta Sukumar ASPHALT PAVER-INSOLVENCY PRACTITIONER Work Phone: [facility] Payers Date Payer Category [facility] [id number] [facility] Solo SINGH [id number] 2016 Unknown FRANCISCO LEOS ANDREA [id number] 2016-Present [phone] [address] [place] [address] [id number] 2016 Unknown [id number] 2005 Medicare [id number] 2005 Medicare [id number] 1940 Unknown [id number]. 2.93 1940 Unknown [id number] [id number]. 2.128 1940 Unknown [id number] [id number]. 2.1286 1940 Unknown [id number] 2.16.840.1.734706.3.579. 2.1286 1940 Unknown [id number] 2.16.840.1.900771.3.579. 2.128 1940 Unknown [id number] 2.16.840.1.225548.3.579. 2.128 1940 Unknown [id number] 2.16.840.1.157939.3.579. 2.128 1940 Unknown [id number] 2.16.840.1.028300.3.579. 2.128 1940 Unknown [id number] [id number]. 2.1286 1940 Unknown [id number] 2.16.840.1.933000.3.579. 2.1286 1940 Unknown [id number] 2.16.840.1.496780.3.579. 2.1286 1940 Unknown [id number] 2.16.840.1.397110.3.579. 2.128 1940 Unknown [id number] 2.16.840.1.775021.3.579. 2.1286 1940 Unknown [id number] [id number]. 2.1286 Medicare [id number] Self-pay Self Pay [id number] Social History Date Type Detail Facility Start: 03-12-2020 End: 08-31-2023 Tobacco smoking status [facility] Ex-smoker (finding) [facility] Start: 1940 Sex Assigned At Male [facility] Start: 10-23-2020 End: 05-05-2024 Sex Assigned At [facility] Start: 07-01-2021 End: 11-08-2022 Tobacco smoking status [facility] Never smoked tobacco (finding) [facility] End: 03-09-1999 History of tobacco use Current smoker [facility] End: 03-09-1999 History of tobacco use Cigarette Smoker [facility] Start: 07-09-2022 End: 08-31-2023 Tobacco use and exposure Smokeless tobacco non-user [facility] Start: 02-22-2024 End: 05-05-2024 Alcoholic beverage intake Current non-drinker of alcohol (finding) [facility] Start: 10-23-2020 End: 05-05-2024 History of Social function [facility] Do you belong to any clubs or organizations such as scientology groups, unions, fraternal or athletic groups, or school groups? No [facility] Are you now , , , , never or living with a partner? [facility] How often to you hav e a drink containing alcohol? Monthly or less [facility] How many standard dr inks containing alcohol do you have on a typical day? Patient declined [facility] How often do you hav e 6 or more drinks on 1 occasion? Never [facility] Do you feel stress - tense, restless, nervous, or anxious, or unable to sleep at night because your mind is troubled all the time - these days [OSQ] Not at all [facility] Start: 10-23-2020 Education 16 [facility] Start: 1940 Sex assigned at Not on file P [facility] Start: 10-12-2014 Sex Male (finding) [facility] Start: 12-02-2022 End: 03-30-2024 Alcoholic beverage intake Ex-drinker (finding) [facility] (I/We) worried ministerio (my/our) food would run out before (I/we) got money to buy more. Never true [facility] Medical Equipment Procedure Code Equipment Code Equipment Origin al Text Equipment Identifier Dates Decompression, spine, cervical, posterior approach OSTEOAMP GRANULES 10CC FDA Start: 03-19-2020 Decompression, spine, cervical, posterior approach Bone-screw internal spinal fixation system, non-sterile ()[id number] FDA Start: 03-19-2020 Decompression, spine, cervical, posterior approach Bone-screw internal spinal fixation system, non-sterile ()[id number] FDA Start: 03-19-2020 Decompression, spine, cervical, posterior approach Bone-screw internal spinal fixation system, non-sterile ()[id number] FDA Start: 03-19-2020 Decompression, spine, cervical, posterior approach Bone-screw internal spinal fixation system, non-sterile ()[id number] FDA Start: 03-19-2020 Decompression, spine, cervical, posterior approach Bone-screw internal spinal fixation system, non-sterile ()[id number] FDA Start: 03-19-2020 Decompression, spine, cervical, posterior approach Bone-screw internal spinal fixation system, non-sterile ()[id number] FDA Start: 03-19-2020 Decompression, spine, cervical, posterior approach Bone-screw internal spinal fixation system, non-sterile ()[id number] FDA Start: 03-19-2020 Decompression, spine, cervical, posterior approach CANCELLOUS 15CC CRUSHED FDA Start: 07-01-2021 Decompression, spine, cervical, posterior approach Spinal fusion graft kit ([id number] FDA Start: 07-01-2021 Decompression, spine, cervical, posterior approach Bone-screw internal spinal fixation system, non-sterile ()[id number] FDA Start: 07-01-2021 Decompression, spine, cervical, posterior approach Bone-screw internal spinal fixation system, non-sterile ()[id number] FDA Start: 07-01-2021 Decompression, spine, cervical, posterior approach Bone-screw internal spinal fixation system, non-sterile ()[id number] FDA Start: 07-01-2021 Decompression, spine, cervical, posterior approach Bone-screw internal spinal fixation system, non-sterile ()[id number] FDA Start: 07-01-2021 Decompression, spine, cervical, posterior [...] FDA Start: 07-01-2021 Cage Spnl 6 Deg [id number] Mm [facility] - [id number] , [id number] FDA Start: 03-29-2024 Set Screw 5.5-6. 0 - [id number] Start: 03-29-2024 Screw Poly Solid 7.5x55 - [id number] Start: 03-29-2024 Screw Poly Solid 7.5x50 - [id number] Start: 03-29-2024 Driss Ti Prebent 5.5x110 - [id number] Start: 03-29-2024 Driss Ti Prebent 5.5x120 - [id number] Start: 03-29-2024 Crosslink Spnl V ar Lg Streamline Tl - [id number] Start: 03-29-2024 Goals Date Patient Goal Desired Activity /State Clinical Notes 12-13-2020 to 05-05-2024 Joel Gutierrez, [employer] PAVER-INSOLVENCY PRACTITIONER - 05/05/2024 11:40 AM EST Note Date [...] that there are some limitations compared to witu-vl-ayfp evaluations. We elected to proceed. Total time [...] cage, completed with Dr. Saint Tobar at [facility] in [place], [place] on March 29, 2024. He was then discharged to [facility] on 04/03/2024. He reports he was only in the halfway for a few days and has been discharged to home with [facility]. [facility] is currently coming into his home [...] were elevated while he was in the halfway. I did review chart and saw that [...] this visit: Stage 3a chronic kidney disease ([facility]) - Basic Metabolic Panel; Future - Basic Metabolic Panel; Future SWAPNA Ann 05/05/24 0126 documented in this encounter [facility] 05-05-2024 Evaluation note Diagnosis Stage 3a chronic kidney disease ([facility])- Primary documented in this encounter [facility]02-26-2025 History of Present illness Narrative* Sugar [...] ease? Please advise. Thanks, Sugar Balderas RN [facility] Nurse Licensed And Certified Midwife [phone] [facility] Miscellaneous Notes* Telephone Encounter - SWAPNA Ann - 05/04/2024 10:38 AM EST Can we get this patient scheduled please. * Telephone Encounter - Negra Woodall CMA - 05/04/2024 10:38 AM EST Called and scheduled patient for a phone call with provider 05/05 [facility] Telephone encounter Note* Telephone Encounter - SWAPNA Ann - 05/04/2024 10:38 AM EST Can we get this patient scheduled please. [facility]02-26-2025 Telephone encounter Note* Telephone Encounter - Negra Woodall CMA - 05/04/2024 10:38 AM EST Called and scheduled patient for a phone call with provider 05/[address] [facility] [id number] Evaluation note* Diagnosis Stage 3a chronic kidney disease ([facility])- Primary Essential hypertension, benign documented in this encounter [facility]02-21-2025 Miscellaneous Notes* Telephone Encounter - Negra Woodall CMA - 04/29/2024 10:35 AM EST Called and informed patient of lab orders placed and sent to [facility]. No answer, left voicemail. documented in [facility] Telephone encounter Note* Telephone Encounter - Negra Woodall CMA - 04/29/2024 10:35 AM EST Called and informed patient of lab orders placed and sent to [facility]. No answer, left voicemail. [facility] Gravity [id number] History of Present illness Narrative* Sugar Balderas - 04/27/2024 9:19 AM EST I followed up with [facility] and he is currently on service with them. I did confirm that they can do at home blood draws. Lab orders will need to be faxed to [phone] to be completed. * Sugar Balderas - 04/27/2024 9:19 AM EST I called Barney to follow up and he is not very happy at this time. He did contact his surgeons office and they sent out a laboratory equipment cleaner to collect his blood work while I was on the phone with him. Oswaldo GROVE * Sugar Balderas - 04/27/2024 9:19 AM EST His home health provider, [facility], have verified that they can draw his labs as long as the orders are entered and faxed to them. documented in this encounterWadsworth-Rittman Hospital02-19-2025 Miscellaneous Notes* Telephone Encounter - Cande [...] home care to draw documented in this encounterWadsworth-Rittman Hospital02-19-2025 Telephone encounter Note* Telephone Encounter - [...] to his home and draw his blood. [facility]02-19-[facility] Telephone encounter Note* Telephone Encounter - SWAPNA Day - 04/27/2024 9:19 AM EST Can you look into this please. I believe the only way to have labs drawn at home, is through home care, which he does not have, but sounds homebound? [facility]02-19-[facility] Telephone encounter Note* Telephone Encounter - [...] to PCP and Sugar for further discussion. [facility]02-19-[facility]25 Telephone encounter Note* Telephone Encounter - [facility] Trang Phipps - 04/27/2024 9:19 AM EST Attempted to contact patient to let him know, he did not answer. Left voicemail. [facility]02-19-[facility] Telephone encounter Note* Telephone Encounter - SWAPNA Day - 04/27/2024 9:19 AM EST Please fax labs to home care to draw [facility]02-14-2025 Telephone encounter Note* Telephone Encounter - Dom Suarez NP - 04/22/2024 7:17 PM EST Requested Prescriptions Signed Prescriptions Disp Refills oxyCODONE (Roxicodone) 5 MG immediate release tablet 48 tablet 0 Sig: Take 1 tablet (5 mg) by mouth every 6 (six) hours if needed for severe pain for up to 12 days Authorizing Provider: DOM SUAREZ This pt is discharging from [facility]. He will follow up with his pcp for continued treatment. [facility] [id number] Miscellaneous Notes* Telephone Encounter - Dom Suarez NP - 04/22/2024 7:17 PM EST Requested Prescriptions Signed Prescriptions Disp Refills oxyCODONE (Roxicodone) 5 MG immediate release tablet 48 tablet 0 Sig: Take 1 tablet (5 mg) by mouth every 6 (six) hours if needed for severe pain for up to 12 days Authorizing Provider: DOM SUAREZ This pt is discharging from [facility]. He will follow up with his pcp for continued treatment. documented in this encounterEllett Memorial [id number] Telephone encounter Note* Telephone Encounter - Fern Puentes NP - 04/22/2024 2:59 PM EST Unable to fulfill refill due to technical issues. Fern Puentes NP 04/22/24 2:59 PM [facility] Work Phone: 1(311) 555-528602-14-2025 Miscellaneous Notes* Telephone Encounter - Fern Puentes NP - 04/22/2024 2:59 PM EST Unable to fulfill refill due to technical issues. Fern Puenets NP 04/22/24 2:59 PM documented in this [facility]01-26-2025 History of Present illness Narrative* Natalya [...] - 04/01/2024 9:18 AM EST [facility] ORTHOPED[facility] 7 Occupational Therapy Daily Note Discharge Recommendations: Continue to assess pending progress and Subacute/correction facility Equipment Recommendations: No Rolling walker, LHAE?? Time In: 0854 Time Out: 917 Timed Code Treatment Minutes: 24 Minutes Minutes: 24 Date: 04/01/2024 Patient Name: Barry Mcmillan, Gender: male Room: [facility]26/026-A : 1940 (84 y.o.) Referring Practitioner: [...] has tried multiple rounds of physical therapy, care clinician, epidural injections, lumbar medial branch blocks, and [...] household ambulator, with or without device Active Pocketed Spring Assembler: Yes SUBJECTIVE: ELY mcnealed OT session. Upon [...] Inpatient Daily Activity Raw Score: 14 Modified [place]: Current Functional Status: Not Applicable ASSESSMENT: Activity [...] indep within home environment. Additional Goals?: No Technical Administrator Goals Time Frame for Fdc Goals : No LTGs d/t short estimated [...] - 03/31/2024 2:45 PM EST [facility] ORTHOPEDICS Occupational Therapy Daily Note Discharge Recommendations: Subacute/correction facility Equipment Recommendations: No Rolling walker, LHAE?? Time In: 1407 Time Out: 1445 Timed Code Treatment Minutes: 38 Minutes Minutes: 38 Date: 03/31/2024 Patient Name: Barry Mcmillan, Gender: male Room: [facility]/026- : 1940 (84 y.o.) Referring Practitioner: Luiz [...] has tried multiple rounds of physical therapy, care clinician, epidural injections, lumbar medial branch blocks, and [...] household ambulator, with or without device Active Pocketed Spring Assembler: Yes SUBJECTIVE: ELY navarrete OT session. Pt. In bed resting upon arrival, agreeable to participate. PAIN: 05/16: low back increased with movement Vitals: Nurse checked vitals prior to session COGNITION: Decreased Recall, Decreased Insight, Decreased Problem Solving, and Decreased Safety Awareness ADL: Upper Extremity Dressing: Moderate Assistance. To don and doff corset Footwear Management: Maximum Assistance. To don socks and to dof with heel buffer and sock aid will continue to review. Pt. Has heel buffer at home daughter reports does not have [...] indep within home environment. Additional Goals?: No Fdc Goals Time Frame for Technical Administrator Goals : No LTGs d/t short estimated length of stay. Following session, patient left in safe position with all fall risk precautions in place. * Jeanette Pleitez PTA - 03/31/2024 2:20 PM EST [facility] PHYSICAL THERAPY MISSED TREATMENT NOTE [facility] [...] muscle mass loss Fluid Accumulation: Mild Extremities Disease Education Specialist Strength: Not Performed Nutrition Assessment: Pt. nutritionally [...] Pt declines any decrease in PO intake PROCESS MAINTENANCE TECHNICIAN and denies weight changes. Overall feels like [...] Measures: Height: 182.2 cm (5' 11.75 ) Ramer Body Weight (IBW): 177 lbs (80 kg) [...] Energy Requirements: Admission (92.1 kg) Energy (kcal/day): 0843-2474 kcals (20-25 kcals/kg) Weight Used for Protein Requirements: Ramer (80.45 kg) Protein (g/day): 64-80 grams (0.8-1.0 [...] Discharge Planning: Continue Oral Nutrition Supplement (as PROCESS MAINTENANCE TECHNICIAN) Kj Hernández RD, LD Contact: Branden Cruz [...] Gold, PT - 03/30/2024 3:38 PM EST [facility] INPATIENT PHYSICAL THERAPY EVALUATION [facility] ORTHOPEDICS 7K - 7K-26/026-A Discharge Recommendations: Continue to assess pending progress, Subacute/Penitentiary Facility, Therapy recommended at discharge Equipment Recommendations: [...] has tried multiple rounds of physical therapy, care clinician, epidural injections, lumbar medial branch blocks, and [...] household ambulator, with or without device Active Pocketed Spring Assembler: Yes OBJECTIVE: Range of Motion: Bilateral Lower [...] independence with functional mobility. Functional Outcome Measures: [facility] (6 CLICK) BASIC MOBILITY AM-[facility] Inpatient Mobility Raw Score : 17 AM-[facility] Inpatient T-Scale Score : 42.13 Modified [place]: Premorbid Functional Status: Not Applicable Current Functional [...] with rail with SBA for home access Technical Administrator Goals Time Frame for Fdc Goals : not set due to short ELOS Following session, patient left in safe position with all fall risk precautions in place. Jamila Gold, MPT [id number] * AmadorMaria LYamile Manzo, OT - 03/30/2024 1:03 PM EST [facility] INPATIENT OCCUPATIONAL THERAPY [facility] ORTHOPEDICS 7K EVALUATION Discharge Recommendations: Continue to assess pending progress, Subacute/Penitentiary Facility Equipment Recommendations: No Rolling walker, LHAE?? [...] has tried multiple rounds of physical therapy, care clinician, epidural injections, lumbar medial branch blocks, and [...] household ambulator, with or without device Active Pocketed Spring Assembler: Yes VISION:WFL HEARING: WFL COGNITION: Slow Processing, [...] Inpatient Daily Activity Raw Score: 14 Modified [place]: Premorbid Functional Status: Not Applicable Current Functional [...] indep within home environment. Additional Goals?: No Fdc Goals Time Frame for Technical Administrator Goals : No LTGs d/t short estimated [...] report called to 7K nurse [facility] to [facility] family, sendt to 7k to [...] addressed. Meds to Beds: Patient informed of [facility] Meds to Beds program during admission. Patient is agreeable to program. Contact information for the pharmacy and the Meds to Beds program: Name: [facility] Relationship to patient:patient Phone number: in house * Xi Gonzalez RN - 03/28/2024 8:30 AM EST Called [facility] medcial records for patient labs, EKG, and [...] with dr regarding going to Rehab at [facility] This typically will not start [...] by your physician If Urology case Call [phone] the weekday before procedure to find out [...] clean comfortable, loose-fitting clothing No make-up, nail amharic, jewelry, piercings, or contact lenses to be [...] Bring Healthcare Directive or Healthcare Power of Counter Supply Worker in so we can scan it into [...] any concerns or questions about your wound. Pocketed Spring Assembler needed at discharge and someone over 18 to stay with you for 24 hours overnight (surgery maybe cancelled if you don't have this) Report to [facility] on 2nd floor If you would become ill prior to surgery, please call the surgeon May have a visitor with you, we request that you limit to 2 visitors in pre-op area Masks are recommended but not required, new masks at entrance desk Call [facility] [phone] for any questions * Scarlett Rogers RN - 03/21/2024 9:55 AM EST PAT Call Date: 03/21 Surgery Date: 03/29 Surgeon: [facility] Surgery: back fusion Any Isolation Precautions? No Type of Isolation Precaution: Not Applicable Is patient from a halfway? [place] of [facility]pc: Any equipment assist needed for moving patient? No Type of Equipment: Not Applicable Patient last weight: 205 lb Hard Copy on Chart In KloudCatch Pending/Notes Consent - Within 30 days; signed, dated & timed by patient and physician [] On Arrival [] Blood [] DNR H&P - Within 30 days [] Physician To Do Clearance - [x]Medical MUHAMED 03/22 []Cardiac [] Pulmonary Orders - Signed and Dated [] Physician To Do Labs - Within 3 months DONE AT [facility] [x] CBC [x] BMP [x] GFR [] INR [] PTT [] Urine [] Liver Enzymes [x] MRSA Nasal Others: Radiology Studies - Within 1 year DONE AT [facility] [x] Chest X-Ray [] MRI [] CT [] Vascular [] US Pulmonary - [] SAPNA [] CPAP Cardiac Workup - Stress Test, Echo, Cath within 18 months DONE AT [facility] [x] EKG [] Cath [] Stress Test [] Echo/NILAM [] CABG [] Holter Monitor [] Pacemaker/ICD Brand: Where does patient have checked: Last check: Rep Notified: documented in this encounterBon [facility]01-22-20[facility] NotePROCEDURE: XR LUMBAR SPINE 1 VW CLINICAL [...] loss of vertebral body height is seen. [id number] NotePROCEDURE: XR LUMBAR SPINE 1 VW CLINICAL [...] by: Jez Lockhart MD 03/30/24 Final [facility]Saint [facility]25 Hospital Discharge instructions* Discharge Instructions* Luiz Nice [...] already scheduled for an appointment - ext [phone] If any concerning symptoms, such as calf pain/swelling, new numbness/tingling or pain please the contact the office. If concerning symptoms including weakness, chest pain or difficulty breathing, go to the Emergency Department. * Discharge Instr - [place]* Natalya Woodruff ACT ENGLISH TUTOR - 04/01/2024 12:26 PM EST Continuity of [...] Emergency Contact: DEREJE RUANO Relation: Son-in-Law Field Crop I Farmworker needed? No Secondary Emergency Contact: NEEL RUANO Relation: Child Field Crop I Farmworker needed? No Past Surgical History: Past Surgical History: Procedure Laterality Date BACK SURGERY 1977 CERVICAL FUSION x2 HERNIA REPAIR JOINT REPLACEMENT Left shoulder failed per pt LUMBAR FUSION N/A 03/29/2024 L2-S1 Decompression and Fusion performed by Mc Bobby MD at [facility] OR Immunization History: Immunization History Administered Date(s) [...] Assisted Dressing Assisted Toileting Assisted Feeding Assisted Storage Administrator Assisted Med Delivery whole Wound Care Documentation [...] Status Date: 03/31/2024 Readmission Risk Assessment Score: [facility] RISK OF UNPLANNED READMISSION 2.0 12.8 Total Score Discharging to Facility/ Agency Name: [facility] Address: [address] [place] [id number] Dialysis Facility (if applicable) Name: Address: Dialysis Schedule: Phone: Fax: Application Operations Engineer/Major General signature: at1:22 PM EST PHYSICIAN SECTION Prognosis: [...] the diagnosis listed and that he requires Penitentiary Facility for greater 30 days. Update Admission H&P: No change in H&P PHYSICIAN SIGNATURE: * Attachments The following attachments cannot be sent through Care Everywhere. * Blood Transfusions: General Info (Canadian) documented in this encounterBon [facility]01-13-2025 History of Present illness Narrative* Mago Mcclendon MD - 03/21/2024 1:00 PM EST Images from the original note were not included. [address] [place] [phone] Patient: Barry Mcmillan Date of : 1940 Encounter Date: 03/21/2024 SUBJECTIVE: Chief Complaint: Chief Complaint Patient presents with Pre-op Exam Surgery is scheduled for 03/29/24.Lower back Patient ID: Barry Mcmillan is a 84 y.o. male. [facility] Spinal fusion planned by Dr. Mc [...] rehab MAGO MCCLENDON MD Family Medicine Physician [facility] Medicine / [facility] 03/21/24 This note was completed with voice recognition software. The document was reviewed for errors however some may still be present. Please do not hesitate to contact/Epic msg the author to verify any questions/concerns. 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 documented in this encounterRegency Hospital ToledoClickBus09-16-2024 Telephone encounter Note* Telephone Encounter - Sakshi Flores CMA - 11/23/2023 2:56 PM EDT Patient called and his daughter tested positive for covid 5 days ago and they decided to test him last night and he is positive. He is feeling okay he said besides a little cough and congestion. He would like to know if PCP recommends he do anything. Please advise? [facility] [id number] Telephone encounter Note* Telephone Encounter - SWAPNA Day - 11/23/2023 2:56 PM EDT Ask patient if interested in starting Paxlovid [facility]09-16-2024 Telephone encounter Note* Telephone Encounter - Roxi Lorenzo CMA - 11/23/2023 2:56 PM EDT Patient called into the office he stated that he is okay with starting the Paxlovid he uses [facility] for his pharmacy [facility]09-16-2024 Telephone encounter Note* Telephone Encounter - SWAPNA Day - 11/23/2023 2:56 PM EDT Please let pt know to orange picking supervisor Paxlovid this morning, so he can get it started. Also taking this with his flomax, may cause low bp, so should take flomax at a different time [facility]09-16-2024 Telephone encounter Note* Telephone Encounter - Roxi Lorenzo CMA - 11/23/2023 2:56 PM EDT Called patient to let him know about RX being sent to pharmacy, he verbalized understanding and will wait to hear from pharmacy. [facility]08-20-2024 History of Present illness Narrative* Mago Mcclendon MD - 10/27/2023 10:00 AM EDT [address] [place] [phone] Patient: Barry Mcmillan Date of : [...] MAGO MCCLENDON MD Family Medicine Physician [facility] / [facility] 10/27/23 This note was completed with voice recognition software. The document was reviewed for errors however some may still be present. Please do not hesitate to contact/Epic msg the author to verify any questions/concerns. documented in this encounterWadsworth-Rittman Hospital08-15-2024 Chief complaint+Reason for visit Narrative* Chief [...] low back pain Sacroiliitis, not elsewhere classified [facility] Work Phone: 1(995) 168-992208-15-2024 Evaluation note* Diagnosis Onset Date Resolution Status [...] pain acute Sacroiliitis, not elsewhere classified acute [facility] Work Phone: 1(364) 619-777607-31-2024 History of Present illness Narrative* Roberta Patino, [place]H[employer] PAVER-INSOLVENCY PRACTITIONER - 10/07/2023 10:40 AM EDT Subjective SUBJECTIVE: [...] Do you have a durable power of rn complex care?: Yes Cognitive Screening Do you have trouble [...] SWAPNA Day 10/07/23 1311 documented in this encounterWadsworth-Rittman Hospital07-29-2024 Miscellaneous Notes* Telephone Encounter - Anup Stockton CMA - 10/05/2023 10:52 AM EDT Patient requesting new order for both prescriptions. documented in this encounterWadsworth-Rittman Hospital07-29-2024 Telephone encounter Note* Telephone Encounter - Anup Stockton CMA - 10/05/2023 10:52 AM EDT Patient requesting new order for both prescriptions. [facility]06-24-2024 History of Present illness Narrative* SWAPNA [...] adequate amounts of water daily. Try OTC [place] for back pain. Plan to follow-up in thisoffice in 6 months for HTN. 1) Continue current HTN medication regimen. 2) MAW Visit in September. 3) Follow-up with eye doctor in November for cataracts. 4) Try [place] OTC for back pain. 5) Follow-up in this office in 6 months for HTN. Barney was seen today for hypertension. Diagnoses and all orders for this visit: Essential hypertension, benign Stage 3a chronic kidney disease ([facility]-HCC) Spinal stenosis of lumbar region with neurogenic claudication SWAPNA Day 08/31/23 1122 documented in this encounterWadsworth-Rittman Hospital04-17-2024 Miscellaneous Notes* Telephone Encounter - Sakshi [...] sent it. Thank you documented in this encounterWadsworth-Rittman Hospital04-17-2024 Telephone encounter Note* Telephone Encounter - [...] I explained we did not receive anything. [address]17-2024 Telephone encounter Note* Telephone Encounter - SWAPNA Ann - 06/24/2023 1:50 PM EDT I sent it. Thank you [facility]03-07-2024 Miscellaneous Notes* Telephone Encounter - Rajani Thorne CNA - 05/14/2023 2:28 PM EST [facility] notified of enrollment to the care management. documented in this encounterWadsworth-Rittman Hospital03-07-2024 Telephone encounter Note* Telephone Encounter - Rajani Thorne CNA - 05/14/2023 2:28 PM EST [facility]ney notified of enrollment to the care management. [facility]12-13-2023 Evaluation note* Encounter Date Diagnosis Assessment [...] He does not take nonsteroidal anti-inflammatory drugs. [employer] Other 06-20-2023 Evaluation note* Encounter Date Diagnosis [...] He does not take nonsteroidal anti-inflammatory drugs. [employer] Other 04-04-2023 Evaluation note* Encounter Date Diagnosis [...] Cervical radiculopathy at C8 (ICD-10 - M54.12) [employer] Other 12-13-2022 Evaluation note* Encounter Date Diagnosis [...] He does not take nonsteroidal anti-inflammatory drugs. [employer] Other 08-23-2022 Evaluation note* Encounter Date Diagnosis [...] Cervical radiculopathy at C8 (ICD-10 - M54.12) [employer] Other 06-15-2022 Evaluation note* Encounter Date Diagnosis [...] He does not take nonsteroidal anti-inflammatory drugs. [employer] Other 05-24-2022 Evaluation note* Encounter Date Diagnosis [...] fusion of cervical spine (ICD-10 - Z98.1) [employer] Other 02-17-2022 Evaluation note* Encounter Date Diagnosis [...] meantime Apr, Cervical myelopathy (ICD-10 - G95.9) [employer] Other 01-06-2022 Evaluation note* Encounter Date Diagnosis [...] of right upper extremity (ICD-10 - G56.21) [employer] Other 10-07-2021 Evaluation note* Encounter Date Diagnosis [...] declined Dec, Cervical myelopathy (ICD-10 - G95.9) [employer] Other chief complaint+Reason for visit Narrative* Chief Complaint m47.12 FOLLOW UP PCD W/X-RAY CONSULT DR. 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 Spondylolisthesis, cervical region Chronic pain Other low back pain Sacroiliitis, not elsewhere classified Chronic pain Other low back pain Sacroiliitis, not elsewhere classified [facility] Work Phone: Chief complaint+Reason for visit Narrative* [...] Hypercalcemia Hyperparathyroid bone disease Vitamin B12 deficiency [facility] Work Phone: Chief complaint+Reason for visit Narrative* [...] Hypercalcemia Hyperparathyroid bone disease Vitamin B12 deficiency [facility] Work Phone: Chief complaint+Reason for visit Narrative* [...] low back pain Sacroiliitis, not elsewhere classified [facility] Work Phone: Chief complaint+Reason for visit Narrative* [...] low back pain Sacroiliitis, not elsewhere classified [facility] Work Phone: Evaluation noteNo InformationNort Music Messenger (MM) Other Evaluation noteNo assessment information available [facility] Work Phone: Evaluation note* Diagnosis Onset Date Resolution Status 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 acute Spondylolisthesis, cervical region acute [facility] Work Phone: Evaluation note* Diagnosis Onset Date Resolution Status 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 acute Spondylolisthesis, cervical region acute Chronic pain acute Other low back pain acute Sacroiliitis, not elsewhere classified acute [facility] Work Phone: Evaluation note* Diagnosis Onset Date Resolution Status 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 acute Spondylolisthesis, cervical region acute Chronic pain acute Other low back pain acute Sacroiliitis, not elsewhere classified acute Chronic pain acute Other low back pain acute Sacroiliitis, not elsewhere classified acute [facility] Work Phone: evaluation note* Diagnosis Onset Date [...] bone disease acute Vitamin B12 deficiency acute [facility] Work Phone: Evaluation note* Diagnosis Onset Date [...] pain acute Sacroiliitis, not elsewhere classified acute [facility] Work Phone: Evaluation note* Diagnosis Onset Date Resolution Status Chronic pain acute Other low back pain acute Sacroiliitis, not elsewhere classified acute BPH loc w urin obs/LUTS acut e Chronic kidney disease, stage 3a acute Hypercalcemia acute Hyperparathyroid bone disease acute Vitamin B12 deficiency acute Arthritis of lumbosacral spine acute Chronic pain acute Other low back pain acute Sacroiliitis, not elsewhere classified acute [facility] Work Phone: Evaluation note* Diagnosis Dermatitis Contact dermatitis and other eczema, due to unspecified cause [facility] Diagnosis Urinary frequency- Primary [facility]* Diagnosis Lumbar stenosis with neurogenic claudication- Primary Spinal stenosis, lumbar region, with neurogenic claudication Lumbar stenosis with neurogenic claudication Spinal stenosis, lumbar region, with neurogenic claudication [facility]* Diagnosis Enlarged prostate with urinary obstruction Hypertrophy of prostate with urinary obstruction and other lower urinary tract symptoms (LUTS) documented [facility]* Diagnosis Dermatitis Contact dermatitis and other eczema, due to unspecified cause [facility]* Diagnosis Dermatitis Contact dermatitis and other eczema, due to unspecified cause [facility]* Diagnosis Pain- Primary [facility]ized [facility] Diagnosis Dermatitis Contact dermatitis and other eczema, due to unspecified cause [facility]* Diagnosis Cervical neuropathic pain documented [facility]* Diagnosis Essential hypertension, benign- Primary Stage 3a chronic kidney disease ([facility]) Spinal stenosis of lumbar region with neurogenic claudication documented [facility]* Diagnosis Essential hypertension, benign documented [facility]* Diagnosis Essential hypertension, benign [facility]* Diagnosis Medicare annual wellness visit, subsequent- Primary Encounter for immunization Dermatitis Contact dermatitis and other eczema, due to unspecified cause Right ear impacted cerumen Impacted cerumen Edema of both lower legs [facility]* Diagnosis Essential hypertension, benign Cervical neuropathic pain documented [facility]* Diagnosis Bilateral impacted cerumen- Primary Impacted cerumen documented [facility]* Diagnosis Lumbosacral spondylosis without myelopathy- Primary Cervical neuropathic pain S/P laminectomy Other postprocedural status Spinal stenosis of lumbar region with neurogenic claudication [facility]* Diagnosis Dermatitis Contact dermatitis and other eczema, due to unspecified cause [facility]* Diagnosis Edema of both lower legs [facility] Diagnosis SARS-CoV-2 positive- Primary [facility] Diagnosis SARS-CoV-2 positive- Primary [facility]* Diagnosis Enlarged prostate with urinary obstruction Hypertrophy of prostate with urinary obstruction and other lower urinary tract symptoms (LUTS) documented [facility]* Diagnosis Stage 3a chronic kidney disease (CMS-HCC)- Primary Essential hypertension, benign Edema of both lower legs Chronic diastolic congestive heart failure (CMS-HCC) documented [facility] this [facility] - Reported* Type Description Date Medical History hypertension Medical History cervical myelopathy Medical History spinal stenosis Medical History pneumonia Medical History Acute Kidney Injury Medical History chronic kidney disease Surgical History back surgery Surgical History shoulder surgery Surgical History hemorrhoidectomy Surgical History hernia repair Surgical History Cervical fusion-Doctor Nuñez Hospitalization History See Above [employer] Other History general Narrative - Reported* Type Description Date Medical History hypertension Medical History cervical myelopathy Medical History spinal stenosis Medical History pneumonia Medical History Acute Kidney Injury Medical History chronic kidney disease Surgical History back surgery Surgical History shoulder surgery Surgical History hemorrhoidectomy Surgical History hernia repair Surgical History Cervical fusion-Doctor Nuñez 06/11/2021 Hospitalization History See Above [employer] Other InstructionsNot on filedocumented in this encounter [...] Everywhere. * High blood pressure in adults (Canadian) [facility] on [facility] documented in [facility]* Attachments The following attachments cannot be sent through Care Everywhere. * High Blood Pressure Discharge Instructions (Canadian) [facility]Not on file documented in this [facility] SystemInstructionsNot on file documented in this encounterPro[facility] SystemInstructionsNot on file documented in this encounterPro[facility] SystemInstructionsNot on file [facility] SystemReason for referral (narrative)* Consultation (Routine) - Pending Review Specialty Diagnoses / Procedures Referred By Contac t Referred To Contact Dermatology Diagnoses Dermatitis Roberta Patino APRN-INSOLVENCY PRACTITIONER [address], [place] [address] Mara Landa MD [address], [address] [address] Referral ID Status Reason Start Date Expiration Date Visits Requested Visits Authorized [id number] Pending Review Specialty Services Required 10/07/2023 10/06/2024 1 1 [facility]narrative)* Consultation (Routine) - Pending Review Specialty Diagnoses / Procedures Referred By Contac t Referred To Contact Pain Medicine Diagnoses Lumbosacral spondylosis without myelopathy Cervical neuropathic pain S/P laminectomy Spinal stenosis of lumbar region with neurogenic claudication Roberta Patino APRN-INSOLVENCY PRACTITIONER [address], [place] [address] Mabel De La Garza MD [address] [place] [address] Referral ID Status Reason Start Date Expiration Date V isits Requested Visits Authorized [id number] Pending Review 11/04/2023 11/03/2024 1 1 Scheduling Instructions Would like [facility] if available [facility] Advance Directives No Advanced Directives Records Found Advance Directive Response Recorded Date/ Time Advance Directives No February 14, 2020 3:51pm Advance Directive Response Recorded Date/ Time Advance Directives No February 14, 2020 4:51pm Documents on File Type Date Recorded Patient Administrative Assistant Expl anation 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 03/29/2024 12:28 PM Poa/Living Will Date Activated [...] accident (CVA) Unknown brother History of agent [place] exposure Unknown Relationship Condition Age at Onset Recorded Date/T fawad Not Specified Hypertension Unknown father Heart disease Unknown Hypertension Unknown daughter Cerebrovascular accident (CVA) Unknown brother History of agent [place] exposure Unknown brother Family history of mental disorder Unknown Malignant neoplasm Unknown daughter Hypertension Unknown History of stroke Unknown father Unknown family member Family history of other condition Unknow n Not Specified Unknown sister Malignant neoplasm Unknown Relationship Condition Age at Onset Recorded Date/T fawad mother Hypertension Unknown father Heart disease Unknown Hypertension Unknown daughter Cerebrovascular accident (CVA) Unknown brother History of agent [place] exposure Unknown brother Family history of mental [...] DATE CREATED AUTHOR AUTHOR'S ORGANIZ ATION 11/09/2020 [facility] DATE CREATED AUTHOR AUTHOR'S ORGANIZ ATION 07/24/2023 [facility] DATE CREATED AUTHOR AUTHOR'S ORGANIZ ATION 04/07/2024 [facility] DATE CREATED AUTHOR AUTHOR'S ORGANIZ ATION 05/07/2024 [facility] DATE CREATED AUTHOR AUTHOR'S ORGANIZ ATION 05/11/2024 [facility] REASON FOR VISIT (unrecogniz ed section and content) Reason Comments Med Refill Reason Onset Date Comments Med Refill 03/10/2024 Reason Comments Pre-op Exam Surgery is scheduled for 03/29/24.Lower back Specialty Diagnoses / Procedures Referred By Oly t Referred To Contact Diagnoses Spinal stenosis of lumbar region, unspecified whether neurogenic claudication present Spinal stenosis of lumbar region, unspecified whether neurogenic claudication present [M48.061] Procedures OK ARTHRODESIS POSTERIOR/PSTLAT TQ 1NTRSPC LUMBAR OK ARTHRODESIS PST/PSTLAT TQ 1NTRSPC EA ADDL NTRSPC OK ARNOLD FACETECTOMY & FORAMOTOMY 1 VRT SGM LUMBAR OK ARNOLD FACETECTOMY&FORAMOT 1 VRT SGM EA ADDL SGM OK POSTERIOR SEGMENTAL INSTRUMENTATION 3-6 VRT SEG OK AUTOGRAFT SPINE SURGERY LOCAL FROM SAME INCISION L2-S1 Decompression and Fusion L2-S1 Decompression and Fusion L2-S1 Decompression and Fusion L2-S1 Decompression and Fusion L2-S1 Decompression and Fusion L2-S1 Decompression and Fusion Mc Bobby MD [facility] [place] [address] [place] [address] [facility] [id number] [place] [address] Referral ID Status Reason Start Date Expiration Date Visits Re quested Visits Authorized [id number] 1 1 Reason Onset Date Comments Med [...] Member Role Status Dates Roberta Patino APRN NATIONAL SALES EXECUTIVE-C Primary Care Provider Active Willian Nuñez MD Attending Provider Active Team Status: Inactive Member Role Status Dates Roberta Patino APRN NATIONAL SALES EXECUTIVE-C Primary Care Provider Active Lynn Garcia MD Attending Provider Active Team Status: Active Member Role Status Dates Roberta Patino APRN NATIONAL SALES EXECUTIVE-C Primary Care Provider Active Team Status: Active Member Role Status Dates Roberta Patino APRN NATIONAL SALES EXECUTIVE-C Primary Care Provider Active Start: June 25, 2023 Willian Nuñez MD Attending Provider Active Star t: June 25, 2023 Team Status: Inactive Member Role Status Dates Roberta Patino APRN NATIONAL SALES EXECUTIVE-C Primary Care Provider Active Start: June 25, 2023 End: June 25, 2023 Willian Nuñez MD Attending Provider Active Star t: June 25, 2023 End: June 25, 2023 Team Status: Inactive Member Role Status Dates Roberta Patino APRN NATIONAL SALES EXECUTIVE-C Primary Care Provider Active Start: July 16, 2023 End: July 16, 2023 Angel Carbajal MD Attending Provider Active Sta rt: July 16, 2023 End: July 16, 2023 Team Status: Active Member Role Status Dates Roberta Patino APRN NATIONAL SALES EXECUTIVE-C Primary Care Provider Active Start: July 16, 2023 Angel Carbajal MD Attending Provider Active Sta rt: July 16, 2023 Team Status: Inactive Member Role Status Dates Roberta Patino APRN NATIONAL SALES EXECUTIVE-C Primary Care Provider Active Start: July 21, 2023 End: July 21, 2023 Angel Carbajal MD Attending Provider Active Sta rt: July 21, 2023 End: July 21, 2023 Team Status: Active Member Role Status Dates Roberta Patino APRN NATIONAL SALES EXECUTIVE-C Primary Care Provider Active Start: July 20 Angel Carbajal MD Attending Provider, Other Provider Active Start: July 21, 2023 Team Status: Inactive Member Role Status Dates Roberta Patino APRN NATIONAL SALES EXECUTIVE-C Primary Care Provider Active Start: August 18, 2023 End: August 18, 2023 Angel Carbajal MD Attending Provider Active Sta rt: August 18, 2023 End: August 18, 2023 Team Status: Inactive Member Role Status Dates Roberta Patino APRN NATIONAL SALES EXECUTIVE-C Primary Care Provider Active Start: August 19, 2023 End: August 19, 2023 Cristofer Grey MD Attending Provider Active Star t: August 19, 2023 End: August 19, 2023 Team Status: Active Member Role Status Dates Roberta Patino APRN NATIONAL SALES EXECUTIVE-C Primary Care Provider Active Start: August 26, 2023 Angel Carbajal MD Attending Provider Active Sta rt: August 26, 2023 Team Status: Inactive Member Role Status Dates Roberta Patino APRN NATIONAL SALES EXECUTIVE-C Primary Care Provider Active Start: September 18, 2023 End: September 18, 2023 Angel Carbajal MD Attending Provider Active Sta rt: September 18, 2023 End: September 18, 2023 Team Status: Inactive Member Role Status Dates Roberta Patino APRN NATIONAL SALES EXECUTIVE-C Primary Care Provider Active Start: September 24, 2023 End: September 24, 2023 Angel Carbajal MD Attending Provider Active Sta rt: September 24, 2023 End: September 24, 2023 Team Status: Inactive Member Role Status Dates Roberta Patino APRN NATIONAL SALES EXECUTIVE-C Primary Care Provider Active Start: October 14, 2023 End: October 14, 2023 Angel Carbajal MD Attending Provider Active Sta rt: October 14, 2023 End: October 14, 2023 Team Status: Active Member Role Status Dates Roberta Patino APRN NATIONAL SALES EXECUTIVE-C Primary Care Provider Active Start: October 14, 2023 Angel Carbajal MD Attending Provider Active Sta rt: October 14, 2023 Team Status: Inactive Member Role Status Dates Roberta Patino APRN NATIONAL SALES EXECUTIVE-C Primary Care Provider Active Start: October 22, 2023 End: October 22, 2023 Angel Carbajal MD Attending Provider Active Sta rt: October 22, 2023 End: October 22, 2023 [employer] Sweatband Puncher Relationship Specialty Start Date End Date Roberta Patino APRN-INSOLVENCY PRACTITIONER [address], [place] [address] PCP - General Family Medicine 09/13/20 [facility] Nurse - [employer] 07/08/23 [employer] Sweatband Puncher Relationship Specialty Start Date End Date Roberta Patino APRN-INSOLVENCY PRACTITIONER [address], [place] [address] PCP - General Family Medicine 09/13/20 [facility] Nurse - [employer] 07/08/23 [employer] Sweatband Puncher Relationship Specialty Start Date End Date Roberta Patino APRN-INSOLVENCY PRACTITIONER [address], [place] [address] PCP - General Family Medicine 09/13/20 [facility] Nurse - [employer] 07/08/23 [employer] Sweatband Puncher Relationship Specialty Start Date End Date Roberta Patino APRN-INSOLVENCY PRACTITIONER [address], [place] [address] PCP - General Family Medicine 09/13/20 [facility] CCM Nurse - [employer] 07/08/23 [employer] Sweatband Puncher Relationship Specialty Start Date End Date Roberta Patino APRN-INSOLVENCY PRACTITIONER [address], [place] [address] PCP - General Family Medicine 09/13/20 [facility] Nurse - [employer] 07/08/23 [employer] Sweatband Puncher Relationship Specialty Start Date End Date Mago Mcclendon ND [address], [place] [address] PCP - General Family Medicine 03/30/24 [employer] Sweat[employer] Puncher Relationship Specialty Start Date End Date [facility] [address], [place] [address] PCP - General Family Medicine 09/13/20 [employer] Puncher Relationship Specialty Start Date End Date Rober[facility] [address], [place] [address] PCP - General Family Medicine 09/13/20 [employer] Puncher Relationship Specialty Start Date End Date Roberta aPtino [facility] [address], [place] [address] PCP - General Family Medicine 09/13/20 [employer] Puncher Relationship Specialty Start Date End Date Rober[facility] [address], [place] [address] PCP - General Family Medicine 09/13/20 [facility] Nurse - [employer] 07/08/23 [employer] Sweatband Puncher Relationship Specialty Start Date End Date Roberta [facility] [address], [place] [address] PCP - General Family Medicine 09/13/20 [facility] CCM Nurse - [employer] 07/08/23 [employer] Sweatband Puncher Relationship Specialty Start Date End Date Rober[facility] [address], [place] [address] PCP - General Family Medicine 09/13/20 [facility] CCM Nurse - [employer] 07/08/23 Hel[employer] Sweatband Puncher Relationship Specialty Start Date End Date Rober[facility] [address], [place] [address] PCP - General Family Medicine 09/13/20 [facility] Nurse - [employer] 07/08/23 Hel[employer] Sweatband Puncher Relationship Specialty Start Date End Date Rober[facility] [address], [place] [address] PCP - General Family Medicine 09/13/20 [facility] Nurse - [employer] 07/08/23 [employer] Sweatband Puncher Relationship Specialty Start Date End Date Roberta [facility] [address], [place] [address] PCP - General Family Medicine 09/13/20 [facility] CCM Nurse - [employer] 07/08/23 [employer] Sweatband Puncher Relationship Specialty Start Date End Date SukumarRoberta ramey Madan, [employer] PAVER-INSOLVENCY PRACTITIONER [address], [place] [address] PCP - General Family Medicine 09/13/20 [facility]23 Goals (unrecognized section and content) Goals [...] Haydee Logan RN) 0855 (Given - Provider: Naatlya Woodruff LPN) sennosides-docusate sodium (SENOKOT-S) 8.6-50 MG [...] BE BASED ON THE PRIMARY CLINICAL RECORDS. [employer] [facility]. provides no warranty or guarantee of the accuracy or completeness of information in this document.
== END 2024-05-13 11:49 | disposition home or self-care (01) ==
LOC: US 11:50
PROVIDERS: PCP Nurse Practitioner; Visit Provider Orthopaedic Surgery Orthopaedic Surgery of the Spine
DX: M79.89 Other specified soft tissue disorders (principal)
CPT/HCPCS: 93970

== ENCOUNTER 2024-06-10 09:39 | Outpatient (OUT) | payer MEDICARE, BC, SELFPAY ==
--- NOTE | 2024-06-10 09:40 | XR_ITS ---
The [address] [address] Patient Name: MARCIANO MCMILLAN MR[facility]: [facility]:[id number] date: 1940 Sex: M Assigned Patient Location: Current Patient Location: Accession/Order Number: [id number] Exam Date: 06/10/2024 10:06 Report Date: 06/10/2024 10:09 At the request of: SATISH RUGGIERO MD Procedure: XR lumbar spine 2-3V LUMBAR SPINE - 2 views COMPARISON: 05/13/2024 CLINICAL DATA: Low back pain with radiation to the legs along with numbness and tingling. Lower extremity swelling. Prior fusion. AP and lateral weightbearing views were obtained. There is thoracolumbar levoscoliosis. There is redemonstration of laminectomy and fusion with posterior rods and pedicle screws extending from L2 through S1. Interbody fusion device is again seen at the lumbosacral junction. No developing fractures are noted. There is still slight retrolisthesis of L2 on L3. There is multilevel disc space narrowing throughout the levels of fusion. Endplate spurring and facet hypertrophy are present. The SI joints are intact. No paraspinal soft tissue abnormalities are seen. There is atherosclerotic plaque at the aorta and iliac arteries. XR/XR lumbar spine 2-3V IMPRESSION: SCOLIOSIS WITH POSTOPERATIVE AND DEGENERATIVE CHANGES SIMILAR TO THE COMPARISON Impression dictated by: Amy Reyes M.D.06/10/2024 10:09 AM Dictation Location: [place] [address] Electronically authenticated by: [id number] Date: 06/10/2024 10:09
== END 2024-06-10 09:40 | disposition home or self-care (01) ==
LOC: EC 09:39
PROVIDERS: PCP Nurse Practitioner; Visit Provider Orthopaedic Surgery Orthopaedic Surgery of the Spine
DX: M54.50 Low back pain, unspecified (principal); M41.9 Scoliosis, unspecified; M51.369 Other intervertebral disc degeneration, lumbar region without mention of lumbar back pain or lower extremity pain
CPT/HCPCS: 72100